=== PATIENT | female | born 1960 | race Caucasian/White ===

== ENCOUNTER 2020-02-05 18:25 | Inpatient (IN) | payer OTHER, SELFPAY ==
--- NOTE | 2020-02-05 18:29 | ED_ITS ---
HPI - SOB/Dyspnea General Chief Complaint: Dyspnea Stated Complaint: DIFF BREATHING Time Seen by Provider: 02/05/20 20:01 Source: patient and EMS Mode of arrival: EMS Limitations: no limitations History of Present Illness HPI Narrative: 60-year-old female with COPD O2 dependent, anxiety, depression, emphysema, hypertension presents via EMS for shortness of breath and hypoxia. Patient's nurse practitioner called EMS. Patient normally on 2 L of O2 however requires 4 to keep O2 sats above 90%. Patient is speaking in short sentences, using accessory muscles and desats on minimal exertion. She has been sick for 2 weeks and feels like she cannot catch her breath. MD elicited complaint: shortness of breath, cough and anxiety Pertinent past history: COPD Onset (ago): week(s) (2) Context: recent illness Timing: constant Severity: moderate Exacerbating factors: exertion, movement, coughing, talking and deep breaths Relieving factors: nothing Known history of: COPD, asthma and recurrent pneumonia Associated symptoms: cough and wheezing Treatment prior to arrival: oxygen Related Data Home oxygen amount: 2 liters Home Medications Medication Instructions Recorded Confirmed albuterol sulfate 2 puff INHALATION QID PRN 02/05/20 02/05/20 albuterol sulfate [Ventolin HFA] 2 puff PO QID PRN 02/05/20 02/05/20 amitriptyline 1 tab PO BEDTIME 02/05/20 02/05/20 anastrozole 1 tab PO DAILY 02/05/20 02/05/20 calcium citrate-vitamin D3 1 tab PO BID 02/05/20 02/05/20 fluticasone propion-salmeterol 1 puff PO BID 02/05/20 02/05/20 [Wixela Inhub] lisinopril 1 tab PO DAILY 02/05/20 02/05/20 montelukast 1 tab PO BEDTIME 02/05/20 02/05/20 omeprazole 1 cap PO BID 02/05/20 02/05/20 sertraline 1.5 tab PO DAILY 02/05/20 02/05/20 Allergies Allergy/AdvReac Type Severity Reaction Status Date / Time Sulfa (Sulfonamide Allergy Mild RASH Verified 02/05/20 18:39 Antibiotics) codeine [Codeine] AdvReac Mild NEAR Verified 02/05/20 18:39 SYNCOPE epoprostenol [From Flolan] AdvReac Mild NAUSEA & Verified 02/05/20 18:39 VOMITING Codeine Sulfate Allergy Unknown fainted Uncoded 02/05/20 18:39 Review of Systems Review of Systems: Constitutional: No Fever, No Chills ENT/Mouth: No Hoarseness, No sore throat, No Rhinorrhea Eyes: No Redness, No Discharge, No Vision Changes Cardiovascular: No Chest Pain, positive SOB, positive Dyspnea on Exertion, No Edema Respiratory: positive Cough, No Sputum, positive Wheezing, Gastrointestinal: No Nausea, No Vomiting, No Diarrhea, No abdominal Pain Genitourinary: No Dysuria, No Hematuria Musculoskeletal: No joint pain, No Myalgias Skin: No rash Neuro: No Weakness, No Numbness, No Headache Psych: No anxiety, depression Heme/Lymph: No Bruising, No Bleeding Endocrine: No Polyuria, No Polydipsia PMFSH Past Medical History Attestation statement: The following information was validated with the patient. Source: old records reviewed Medical History Breast CA Hypertension Surgical History H/O lumpectomy Social History Social History Smoking Status: Former smoker Use of substances other than those prescribed or required for medical reasons: No Advance Directives: No Physical Exam Vital Signs: Vital Signs: Last Vital Signs Temp 99.1 F 02/05/20 21:56 Pulse 81 02/05/20 22:53 Resp 18 02/05/20 22:53 BP 126/69 02/05/20 22:53 Pulse Ox 95 02/05/20 21:12 Body Mass Index 36.6 Appearance: Alert. Oriented X3. Moderate distress. Tachypneic, tachycardic Eyes: Pupils equal, round and reactive to light. ENT: Pharynx normal. Neck: Normal inspection. Neck supple. CVS: Tachycardic heart rate and rhythm. Pulses normal. Respiratory: Moderate respiratory distress. Breath sounds coarse with bilateral expiratory and inspiratory wheezing. Requires 4 L of O2 to keep O2 sat above 90. Abdomen: Soft and nontender. Skin: Skin warm and dry. Normal skin color. Normal skin turgor. Extremities: No lower extremity edema. Neuro: No motor deficit. No sensory deficit. Course Course Course Narrative: 60-year-old female presents via EMS by her nurse practitioner for shortness of breath, hypoxia, and suspected COPD exacerbation. Patient is tachypneic, using accessory muscles, with respiratory rate of 26. O2 sat dropped down to 87% on 2 L, once patient's O2 was bumped up to 4 L respiratory rate decreased O2 sat improved. X-ray shows right lobe infiltrate. Lung sounds are coarse throughout, will order CT scan. Will give ceftriaxone for COPD exacerbation and suspected right lower lobe pneumonia. At 7:47 p.m. COVID positive, fluid resuscitation will be continued gently as this is a viral infection. Discussion with Dr. Fuller regarding admission. Patient will be admitted for COVID-19 pneumonia, hypoxia. Consultations Consultation #1: Alina Time: 19:50 MDM - SOB/Dyspnea Differential Diagnosis Differential diagnosis: Likely acute exacerbation of chronic obstructive airways disease, congestive heart failure, pneumonia, asthma with exacerbation, pleural effusion and anemia Medical Records Attestation: I reviewed the patient's medical records. Lab Data Attestation: I reviewed the patient's lab results. Result diagrams: 02/05/20 18:52 02/05/20 18:52 Labs: Lab Results 02/05/20 02/05/20 02/05/20 Range/Units 18:52 18:52 18:52 WBC 3.2 L (4.8-10.8) X10*3/uL RBC 4.96 (4.20-5.50) X10*6/uL Hgb 15.2 (12.0-16.0) g/dl Hct 45.4 (37-47) % MCV 91.5 (80-98) fL MCH 30.6 (27.0-33.0) pg MCHC 33.5 (31.0-35.0) g/dl RDW 12.2 (11.0-16.0) % Plt Count 137 L (160-400) X10*3/uL MPV 10.1 (9.4-12.3) fL Immature Gran % (Auto) 0.3 (0.0-0.4) % Neut % (Auto) 65.1 (45-73) % Lymph % (Auto) 23.8 (20-40) % Christian % (Auto) 10.5 (2-11) % Eos % (Auto) 0.3 (0-4) % Baso % (Auto) 0.0 (0-2) % Lymph # (Auto) 0.8 L (1.2-4.9) X10*3/uL Christian # (Auto) 0.3 (0.1-1.2) X10*3/uL Eos # (Auto) 0.0 (0.0-0.4) X10*3/uL Baso # (Auto) 0.0 (0.0-0.2) X10*3/uL Abs Immat Gran (auto) 0.01 (0.00-0.03) X10*3/uL Absolute Neuts (auto) 2.1 (2.0-8.3) X10*3/uL Absolute Nucleated RBC 0.000 (0.0-0.012) X10*3/uL Nucleated RBC % (auto) 0.0 (0.0-0.2) /100WBC PT 12.5 (10.8-13.0) SEC INR 1.1 (0.9-1.1) APTT 34.1 (24.1-38.0) SEC Sodium 138 (135-145) mmol/L Potassium 3.4 (3.3-5.1) mmol/l Chloride 97 (96-108) mmol/L Carbon Dioxide 32 H (22-29) mmol/L Anion Gap 12 (12-20) BUN 8 L (9-16) mg/dL Creatinine 0.58 (0.5-1.4) mg/dL Estim Creat Clear Calc 108.0 Estimated GFR > 60 Random Glucose 102 (60-115) mg/dL Lactic Acid (0.5-2.0) mmol/L Calcium 8.2 L (8.4-10.2) mg/dL Total Bilirubin 0.8 (0.0-1.0) mg/dL Direct Bilirubin 0.5 (0.0-0.5) mg/dL AST 32 H (5-31) U/L ALT 18 (0-31) U/L Alkaline Phosphatase 56 (39-117) U/L Troponin I High Sens (<3.5-17.0) ng/L B-Natriuretic Peptide (<100) pg/mL Total Protein 6.1 L (6.5-8.0) g/dL Albumin 3.6 (3.5-5.0) g/dL Lipase 27 (8-78) U/L Coronavirus (PCR) (Negative) Influenza Type A (PCR) (Negative) Influenza Type B (PCR) (Negative) RSV RNA Qual (PCR) (Negative) 02/05/20 02/05/20 02/05/20 Range/Units 18:52 18:52 18:52 WBC (4.8-10.8) X10*3/uL RBC (4.20-5.50) X10*6/uL Hgb (12.0-16.0) g/dl Hct (37-47) % MCV (80-98) fL MCH (27.0-33.0) pg MCHC (31.0-35.0) g/dl RDW (11.0-16.0) % Plt Count (160-400) X10*3/uL MPV (9.4-12.3) fL Immature Gran % (Auto) (0.0-0.4) % Neut % (Auto) (45-73) % Lymph % (Auto) (20-40) % Christian % (Auto) (2-11) % Eos % (Auto) (0-4) % Baso % (Auto) (0-2) % Lymph # (Auto) (1.2-4.9) X10*3/uL Christian # (Auto) (0.1-1.2) X10*3/uL Eos # (Auto) (0.0-0.4) X10*3/uL Baso # (Auto) (0.0-0.2) X10*3/uL Abs Immat Gran (auto) (0.00-0.03) X10*3/uL Absolute Neuts (auto) (2.0-8.3) X10*3/uL Absolute Nucleated RBC (0.0-0.012) X10*3/uL Nucleated RBC % (auto) (0.0-0.2) /100WBC PT (10.8-13.0) SEC INR (0.9-1.1) APTT (24.1-38.0) SEC Sodium (135-145) mmol/L Potassium (3.3-5.1) mmol/l Chloride (96-108) mmol/L Carbon Dioxide (22-29) mmol/L Anion Gap (12-20) BUN (9-16) mg/dL Creatinine (0.5-1.4) mg/dL Estim Creat Clear Calc Estimated GFR Random Glucose (60-115) mg/dL Lactic Acid 0.9 (0.5-2.0) mmol/L Calcium (8.4-10.2) mg/dL Total Bilirubin (0.0-1.0) mg/dL Direct Bilirubin (0.0-0.5) mg/dL AST (5-31) U/L ALT (0-31) U/L Alkaline Phosphatase (39-117) U/L Troponin I High Sens 10.4 (<3.5-17.0) ng/L B-Natriuretic Peptide 17 (<100) pg/mL Total Protein (6.5-8.0) g/dL Albumin (3.5-5.0) g/dL Lipase (8-78) U/L Coronavirus (PCR) POSITIVE A (Negative) Influenza Type A (PCR) NEGATIVE (Negative) Influenza Type B (PCR) NEGATIVE (Negative) RSV RNA Qual (PCR) NEGATIVE (Negative) Imaging Data Chest x-ray: Attestation: I personally reviewed and interpreted this imaging study as follows: Radiologist's impression: EXAMINATION: XR CHEST CLINICAL INFORMATION: Shortness of breath COMPARISON: 03/12/2018 TECHNIQUE: Frontal view of the chest was obtained. FINDINGS: Emphysema. Hazy opacity at the right lung base partially obscures the diaphragm. Mild left lower lobe subsegmental atelectasis. Lungs otherwise clear. Heart size within normal limits for portable technique. No acute or suspicious osseous abnormalities. XR/XR chest 1V IMPRESSION: Emphysema. Right lower lobe hazy opacity partially obscuring the right lateral diaphragm could represent atelectasis or infiltrate. CT scan - chest: Attestation: I personally reviewed and interpreted this imaging study as follows: Radiologist's impression: EXAMINATION: CT CHEST WITHOUT CONTRAST CLINICAL INFORMATION: Abnormal chest x-ray. COMPARISON: X-ray earlier today. CT chest 06/17/2013. TECHNIQUE: Multidetector volumetric CT imaging of the chest was done. Axial MIP volume rendering provided. Sagittal and coronal reformatted images were obtained. This CT examination was performed using dose optimization techniques as appropriate, variously including the following: *Automated exposure control *Adjustment of mA and/or kV according to patient size (this includes techniques or standardized protocols for targeted exams where dose is matched to indication/reason for exam; i.e. extremities or head) *Use of iterative reconstruction technique DLP: 366 mGy-cm FINDINGS: LUNGS: Respiratory motion artifact, limiting evaluation. Emphysematous changes present, more prominent in the lung apices. There is a 1.2 x 1 cm spiculated nodule in the right upper lobe, image 72 series 5, new from previous. The prior study in 2013 demonstrated a spiculated nodule in the right lower lobe. This region is obscured by the respiratory motion artifact, and this is not well evaluated in the current study. There is a diffuse interstitial prominence in the right lower lobe and to a lesser degree in the right middle lobe. This is new as compared to previous. There is mild interstitial prominence in the left lower lobe, as well. There is airspace opacity in the subpleural region of the right lower lobe, as well as patchy airspace opacities in the subpleural right middle lobe, as well. Patchy airspace opacity in the subpleural left lower lobe. These findings are nonspecific. Differential consideration include infectious, inflammatory etiologies. Asymmetric pulmonary edema can potentially have this appearance. MEDIASTINUM: No mediastinal or hilar lymphadenopathy. Mediastinal lymph node lateral to the AP window measures 6 mm in short axis, previously measuring 4 mm. Normal caliber of the aorta. Normal heart size. No pericardial effusion. Coronary artery calcification. PLEURA: Small right pleural effusion. AXILLA: No lymphadenopathy. UPPER ABDOMEN: Unremarkable. OSSEOUS STRUCTURES: Mild anterior wedging of T11, T12 vertebral bodies, similar to previous. Multilevel degenerative changes in the spine. Dysmorphic curvature of the sternum, appears similar to previous. CT/CT chest wo con IMPRESSION: 1. There is a spiculated, nodular opacity in the right upper lobe measuring 1.2 x 1 cm. This is new as compared to the prior study. Differential consideration include infectious, inflammatory, neoplastic etiologies. This can be further worked up at this stage, such as with PET/CT. Alternately, short-term follow up CT is recommended for reassessment. 2. Emphysema. 3. Diffuse interstitial prominence in the right middle lobe and lower lobe, and to a lesser degree in the left lung. These findings are new as compared to previous. Multifocal airspace opacities in the right mid to lower lung, detailed above. Differential considerations for these findings include infectious, inflammatory etiologies. Asymmetric pulmonary edema can potentially have this appearance. Clinically manage. Short-term follow up CT is recommended. 4. Small right pleural effusion. 5. The previously noted right lower lobe spiculated opacity is not well seen on today's study due to respiratory motion artifact. Attention on follow up imaging. ECG Data Attestation: I personally reviewed and interpreted this ECG as follows: ECG interpretation date: 02/05/20 ECG interpretation time: 18:38 Interpretation: Vent. Rate : 093 BPM Atrial Rate : 093 BPM P-R Int : 144 ms QRS Dur : 078 ms QT Int : 378 ms P-R-T Axes : 079 -51 028 degrees QTc Int : 469 ms Normal sinus rhythm Possible Left atrial enlargement Left anterior fascicular block T wave abnormality, consider anterior ischemia Abnormal ECG When compared with ECG of 12-MAR-2018 13:09, No significant change was found Scores Heart Score History: -1- moderately suspicious ECG: -1- non specific repolarization disturbance Age: -1- >45 - <65 Risk factory: -1- 1 or 2 risk factors Troponin: -0- < or = normal limit Score: 4 Risk: 16.6% Critical Care Time Critical Care Time Critical Care Time: Yes Total Critical Care Time: 60 Attestation: I have personally provided critical care time exclusive of time spent on separately billable procedures. Time includes review of laboratory data, radiology results, discussion with consultants, and monitoring for potential decompensation. Interventions were performed as documented. Discharge Plan Discharge Clinical Impression: COVID-19, Hypoxia Patient Disposition: Admitted As Inpatient Interventions: Admission Worksheet (ED) Last Done: 02/05/20 23:09 Discharge Date/Time: 02/05/20 23:49
--- NOTE | 2020-02-05 18:34 | XR_ITS ---
EXAMINATION: XR CHEST CLINICAL INFORMATION: Shortness of breath COMPARISON: 03/12/2018 TECHNIQUE: Frontal view of the chest was obtained. FINDINGS: Emphysema. Hazy opacity at the right lung base partially obscures the diaphragm. Mild left lower lobe subsegmental atelectasis. Lungs otherwise clear. Heart size within normal limits for portable technique. No acute or suspicious osseous abnormalities. XR/XR chest 1V IMPRESSION: Emphysema. Right lower lobe hazy opacity partially obscuring the right lateral diaphragm could represent atelectasis or infiltrate.
--- NOTE | 2020-02-05 18:35 | ECG_ITS ---
Test Reason : SHORTNESS OLF BREATH Blood Pressure : / mmHG Vent. Rate : 093 BPM Atrial Rate : 093 BPM P-R Int : 144 ms QRS Dur : 078 ms QT Int : 378 ms P-R-T Axes : 079 -51 028 degrees QTc Int : 469 ms Normal sinus rhythm Possible Left atrial enlargement Left anterior fascicular block T wave abnormality, consider anterior ischemia Abnormal ECG When compared with ECG of 12-MAR-2018 13:09, No significant change was found Referred By: Angelica Fagan Electronically Signed By:NIR BANDA MD
[2020-02-05 18:39] VITALS: BP 136/85; PULSE 94; RESP 16; TEMP 36.5; O2SAT 96; BMI 36.6
[2020-02-05] MEDS: dexAMETHasone sod phosphate 4 MG/ML VIAL 6 MG IVPUSH (19:03)
[2020-02-05] MEDS: cefTRIAXone sodium 1 GM in 0.9 % Sodium Chloride 50 ML IV (19:03)
[2020-02-05 19:07] LABS: Eosinophils Percent Auto 0.3 % (0-4); Hematocrit 45.4 % (37-47); Hemoglobin 15.2 g/dl (12.0-16.0); Imm Gran Abs Auto 0.01 X10*3/uL (0.00-0.03); Imm Gran Pct Auto 0.3 % (0.0-0.4); Lymphocytes Absolute Auto 0.8 X10*3/uL (1.2-4.9); Lymphocytes Percent Auto 23.8 % (20-40); MANUAL DIFF FLAG NO; Mean Corpuscular HGB Conc 33.5 g/dl (31.0-35.0); Mean Corpuscular Hemoglobin 30.6 pg (27.0-33.0); Mean Corpuscular Volume 91.5 fL (80-98); Mean Platelet Volume 10.1 fL (9.4-12.3); Monocytes Absolute Auto 0.3 X10*3/uL (0.1-1.2); Monocytes Percent Auto 10.5 % (2-11); Neutrophils Absolute Auto 2.1 X10*3/uL (2.0-8.3); Neutrophils Percent Auto 65.1 % (45-73); Platelet Count 137 X10*3/uL (160-400); Red Blood Count 4.96 X10*6/uL (4.20-5.50); Red Cell Distribution Width 12.2 % (11.0-16.0); White Blood Count 3.2 X10*3/uL (4.8-10.8)
[2020-02-05 19:12] VITALS: BP 137/80; PULSE 91; RESP 17; TEMP 37.3; O2SAT 96
[2020-02-05 19:14] LABS: INTERNATIONAL NORM RATIO 1.1 (0.9-1.1); Prothrombin Time 12.5 SEC (10.8-13.0)
--- NOTE | 2020-02-05 19:15 | PC.NURSE ---
ARRIVES FROM HOME AFTER 1 WK OF SOB AD FEVERS. USES 2L O2 AT HOME, HX COPD. CURRENT INCREASED O2 DEMAND, DIAPHRAGMATIC BREATHING, DRY COUGH, WHEEZING HEARD THROUGHOUT, FATIGUED. DUONEB WITH EMS WITH SOME RELIEF. CURRENT SPO2 WNL ON 3L. DENIES ANY RECENT COVID EXPOSURE.
[2020-02-05 19:16] LABS: Partial Thromboplastin Time 34.1 SEC (24.1-38.0)
[2020-02-05 19:19] LABS: Lactic Acid 0.9 mmol/L (0.5-2.0)
[2020-02-05 19:25] LABS: Alanine Aminotransferase 18 U/L (0-31); Albumin Level 3.6 g/dL (3.5-5.0); Alkaline Phosphatase 56 U/L (39-117); Anion Gap 12 (12-20); Aspartate Amino Transferase 32 U/L (5-31); Bilirubin Direct 0.5 mg/dL (0.0-0.5); Bilirubin Total 0.8 mg/dL (0.0-1.0); Blood Urea Nitrogen 8 mg/dL (9-16); Calcium 8.2 mg/dL (8.4-10.2); Carbon Dioxide 32 mmol/L (22-29); Chloride 97 mmol/L (96-108); Estimated Glomerular Filt Rate > 60; Glucose Random 102 mg/dL (60-115); Lipase 27 U/L (8-78); Potassium 3.4 mmol/l (3.3-5.1); Sodium 138 mmol/L (135-145); Total Protein 6.1 g/dL (6.5-8.0)
[2020-02-05 19:28] LABS: Troponin-I High Sensitivity 10.4 ng/L (<3.5-17.0)
--- NOTE | 2020-02-05 19:31 | CT_ITS ---
EXAMINATION: CT CHEST WITHOUT CONTRAST CLINICAL INFORMATION: Abnormal chest x-ray. COMPARISON: X-ray earlier today. CT chest 06/17/2013. TECHNIQUE: Multidetector volumetric CT imaging of the chest was done. Axial MIP volume rendering provided. Sagittal and coronal reformatted images were obtained. This CT examination was performed using dose optimization techniques as appropriate, variously including the following: *Automated exposure control *Adjustment of mA and/or kV according to patient size (this includes techniques or standardized protocols for targeted exams where dose is matched to indication/reason for exam; i.e. extremities or head) *Use of iterative reconstruction technique DLP: 366 mGy-cm FINDINGS: LUNGS: Respiratory motion artifact, limiting evaluation. Emphysematous changes present, more prominent in the lung apices. There is a 1.2 x 1 cm spiculated nodule in the right upper lobe, image 72 series 5, new from previous. The prior study in 2013 demonstrated a spiculated nodule in the right lower lobe. This region is obscured by the respiratory motion artifact, and this is not well evaluated in the current study. There is a diffuse interstitial prominence in the right lower lobe and to a lesser degree in the right middle lobe. This is new as compared to previous. There is mild interstitial prominence in the left lower lobe, as well. There is airspace opacity in the subpleural region of the right lower lobe, as well as patchy airspace opacities in the subpleural right middle lobe, as well. Patchy airspace opacity in the subpleural left lower lobe. These findings are nonspecific. Differential consideration include infectious, inflammatory etiologies. Asymmetric pulmonary edema can potentially have this appearance. MEDIASTINUM: No mediastinal or hilar lymphadenopathy. Mediastinal lymph node lateral to the AP window measures 6 mm in short axis, previously measuring 4 mm. Normal caliber of the aorta. Normal heart size. No pericardial effusion. Coronary artery calcification. PLEURA: Small right pleural effusion. AXILLA: No lymphadenopathy. UPPER ABDOMEN: Unremarkable. OSSEOUS STRUCTURES: Mild anterior wedging of T11, T12 vertebral bodies, similar to previous. Multilevel degenerative changes in the spine. Dysmorphic curvature of the sternum, appears similar to previous. CT/CT chest wo con IMPRESSION: 1. There is a spiculated, nodular opacity in the right upper lobe measuring 1.2 x 1 cm. This is new as compared to the prior study. Differential consideration include infectious, inflammatory, neoplastic etiologies. This can be further worked up at this stage, such as with PET/CT. Alternately, short-term follow up CT is recommended for reassessment. 2. Emphysema. 3. Diffuse interstitial prominence in the right middle lobe and lower lobe, and to a lesser degree in the left lung. These findings are new as compared to previous. Multifocal airspace opacities in the right mid to lower lung, detailed above. Differential considerations for these findings include infectious, inflammatory etiologies. Asymmetric pulmonary edema can potentially have this appearance. Clinically manage. Short-term follow up CT is recommended. 4. Small right pleural effusion. 5. The previously noted right lower lobe spiculated opacity is not well seen on today's study due to respiratory motion artifact. Attention on follow up imaging.
[2020-02-05 19:43] LABS: Influenza A PCR NEGATIVE (Negative); Influenza B PCR NEGATIVE (Negative); Resp Syncy Virus RNA Qual PCR NEGATIVE (Negative)
[2020-02-05 19:47] LABS: SARS COV2 PCR INHOUSE POSITIVE (Negative)
[2020-02-05 21:12] VITALS: BP 125/64; PULSE 88; RESP 15; O2SAT 95
[2020-02-05 21:48] LABS: B Type Natriuretic Peptide 17 pg/mL (<100)
[2020-02-05 21:56] VITALS: BP 112/62; PULSE 83; RESP 24; TEMP 37.3
[2020-02-05 22:53] VITALS: BP 126/69; PULSE 81; RESP 18
[2020-02-06] VITALS (9 sets, daily range): BP systolic 110–141; BP diastolic 59–86; PULSE 66–86; RESP 18–20; TEMP 36.1–36.9; O2SAT 90–94; BMI 39.8; BMI 39.6
[2020-02-06] MEDS: Enoxaparin Sodium 40 MG/0.4 ML SYRINGE SUBCUT (00:11)
[2020-02-06] MEDS: 0.9 % Sodium Chloride Flush 3 ML SYRINGE IVFLUSH ×4 (00:12→21:51)
--- NOTE | 2020-02-06 05:50 | PM.IMHP ---
History of Present Illness Date of Service: 02/05/20 Chief Complaint: Shortness of breath This is a 6-year-old female with past medical history of COPD, anxiety depression, hypertension who presents to the hospital with shortness of breath and hypoxia. Patient's visiting nurse called EMS because she was hypoxic. Patient is at baseline 2 L of oxygen but was found to be hypoxic in the 80s with presentation of EMS. She is currently on 4 L of oxygen satting 92%. Patient reports a cough, sputum production, progressively worsening shortness of breath for the past few days, she also has loss of appetite, no nausea or vomiting, no abdominal pain, no diarrhea constipation. No urinary symptoms and no lower extremity edema. To the ED medically stable with no significant abnormal vitals Labs are significant for WBC count of 3.2, hemoglobin of 15.2 hematocrit of 45.4, CMP significant for sodium of 138, potassium 3.4, AST of 32, COVID-19 positive BNP of 17. Troponin of [address] shows spiculated nodular opacity in the right upper lobe measuring 1.1 x 1 cm. This is new compared to previous study, differential consideration include infectious, inflammatory, neoplastic etiology and a CT follow-up is recommended. Patient also has emphysema on CT, and diffuse interstitial prominence in the right middle lobe and lower lobe and to a lesser degree in the left lung. These findings are new and has multifocal his peers opacity in the right mid to lower lobe concerning for asymmetric pulmonary edema as well as infectious etiology. Patient also has right pleural effusion. Past medical history: History of hypertension, breast cancer, COPD on 2 L of oxygen, depression Past surgical history: Lumpectomy Family history: Denies Social history: Comes from home, at this time denies tobacco alcohol or illicit drugs Review of Systems Review of Systems: Yes all other systems are reviewed and are negative [facility] Medical History Breast CA Hypertension Surgical History H/O lumpectomy Social History Household Members: None Housing: House Smoking Status: Former smoker Smoked in Last 30 Days: No Use of substances other than those prescribed or required for medical reasons: No Have you been hit, kicked, punched, or otherwise hurt by someone within the past year? If so, by whom?: No Do you feel safe in your current relationship?: No Current Relationship Is there a partner from a previous relationship who is making you feel unsafe now?: No Are you made to feel afraid or neglected: No Advance Directives: No Do you have thoughts of harming others: None Do you have a plan to hurt others: No Plan Recently lost weight without trying: No Meds Allergies Allergy/AdvReac Type Severity Reaction Status Date / Time Sulfa (Sulfonamide Allergy Mild RASH Verified 02/05/20 18:39 Antibiotics) codeine [Codeine] AdvReac Mild NEAR Verified 02/05/20 18:39 SYNCOPE epoprostenol [From Flolan] AdvReac Mild NAUSEA & Verified 02/05/20 18:39 VOMITING Codeine Sulfate Allergy Unknown fainted Uncoded 02/05/20 18:39 Home Medications Medication Instructions Recorded Confirmed Type albuterol sulfate 2 puff INHALATION QID PRN 02/05/20 02/05/20 History albuterol sulfate [Ventolin HFA] 2 puff PO QID PRN 02/05/20 02/05/20 History amitriptyline 1 tab PO BEDTIME 02/05/20 02/05/20 History anastrozole 1 tab PO DAILY 02/05/20 02/05/20 History calcium citrate-vitamin D3 1 tab PO BID 02/05/20 02/05/20 History fluticasone propion-salmeterol 1 puff PO BID 02/05/20 02/05/20 History [Wixela Inhub] lisinopril 1 tab PO DAILY 02/05/20 02/05/20 History montelukast 1 tab PO BEDTIME 02/05/20 02/05/20 History omeprazole 1 cap PO BID 02/05/20 02/05/20 History sertraline 1.5 tab PO DAILY 02/05/20 02/05/20 History Physical Exam Vital Signs and Narrative: Vital Signs: Last Vital Signs Temp 98.5 F 02/06/20 03:43 Pulse 66 02/06/20 03:43 Resp 19 02/06/20 03:43 BP 139/74 02/06/20 03:43 Pulse Ox 92 02/06/20 03:43 Body Mass Index 39.8 Const: General: cooperative and no acute distress Orientation/consciousness: patient oriented x3 Eyes: General: appearance normal, both eyes and all related structures Resp: Other: Tachypneic Effort & Inspection: able to speak in complete sentences Auscultation: crackles Cardio: Rate: regular rate Rhythm: regular rhythm GI: Palpation (GI): Soft to palpation Auscultation: normal bowel sounds Skin: General skin exam: no rashes or lesions noted Neuro: General: patient oriented x3 Cognition (Neuro): normal cognition Extrem: General: Yes normal to inspection and Yes no pedal edema Results Labs CBC and Chem 7: 02/05/20 18:52 02/05/20 18:52 Labs: Laboratory Results - last 24 hr 02/05/20 02/05/20 02/05/20 18:52 18:52 18:52 MCV 91.5 MCH 30.6 MCHC 33.5 RDW 12.2 Plt Count 137 L MPV 10.1 Immature Gran % (Auto) 0.3 Neut % (Auto) 65.1 Lymph % (Auto) 23.8 [place] % (Auto) 10.5 Eos % (Auto) 0.3 Baso % (Auto) 0.0 Lymph # (Auto) 0.8 L [place] # (Auto) 0.3 Eos # (Auto) 0.0 Baso # (Auto) 0.0 Abs Immat Gran (auto) 0.01 Absolute Neuts (auto) 2.1 Absolute Nucleated RBC 0.000 Nucleated RBC % (auto) 0.0 PT 12.5 INR 1.1 APTT 34.1 Anion Gap 12 Estim Creat Clear Calc 108.0 Estimated GFR > 60 Random Glucose 102 Lactic Acid Calcium 8.2 L Total Bilirubin 0.8 Direct Bilirubin 0.5 AST 32 H ALT 18 Alkaline Phosphatase 56 Troponin I High Sens B-Natriuretic Peptide Total Protein 6.1 L Albumin 3.6 Lipase 27 Coronavirus (PCR) Influenza Type A (PCR) Influenza Type B (PCR) RSV RNA Qual (PCR) 02/05/20 02/05/20 02/05/20 18:52 18:52 18:52 MCV MCH MCHC RDW Plt Count MPV Immature Gran % (Auto) Neut % (Auto) Lymph % (Auto) [place] % (Auto) Eos % (Auto) Baso % (Auto) Lymph # (Auto) [place] # (Auto) Eos # (Auto) Baso # (Auto) Abs Immat Gran (auto) Absolute Neuts (auto) Absolute Nucleated RBC Nucleated RBC % (auto) PT INR APTT Anion Gap Estim Creat Clear Calc Estimated GFR Random Glucose Lactic Acid 0.9 Calcium Total Bilirubin Direct Bilirubin AST ALT Alkaline Phosphatase Troponin I High Sens 10.4 B-Natriuretic Peptide 17 Total Protein Albumin Lipase Coronavirus (PCR) POSITIVE A Influenza Type A (PCR) NEGATIVE Influenza Type B (PCR) NEGATIVE RSV RNA Qual (PCR) NEGATIVE Imaging Radiologist's Impressions: Impressions Chest X-Ray 02/05/20 18:34 IMPRESSION: Emphysema. Right lower lobe hazy opacity partially obscuring the right lateral diaphragm could represent atelectasis or infiltrate. Chest CT 02/05/20 19:31 IMPRESSION: 1. There is a spiculated, nodular opacity in the right upper lobe measuring 1.2 x 1 cm. This is new as compared to the prior study. Differential consideration include infectious, inflammatory, neoplastic etiologies. This can be further worked up at this stage, such as with PET/CT. Alternately, short-term follow up CT is recommended for reassessment. 2. Emphysema. 3. Diffuse interstitial prominence in the right middle lobe and lower lobe, and to a lesser degree in the left lung. These findings are new as compared to previous. Multifocal airspace opacities in the right mid to lower lung, detailed above. Differential considerations for these findings include infectious, inflammatory etiologies. Asymmetric pulmonary edema can potentially have this appearance. Clinically manage. Short-term follow up CT is recommended. 4. Small right pleural effusion. 5. The previously noted right lower lobe spiculated opacity is not well seen on today's study due to respiratory motion artifact. Attention on follow up imaging. Assessment and Plan (1) COVID-19: Status: Acute (2) Respiratory failure with hypoxia: Qualifiers: Chronicity: acute on chronic Qualified Code(s): J96.21 - Acute and chronic respiratory failure with hypoxia Status: Acute (3) Hypertension: Qualifiers: Hypertension type: essential hypertension Qualified Code(s): I10 - Essential (primary) hypertension Status: Acute (4) Breast CA: Qualifiers: Breast location: unspecified site of breast Estrogen receptor status: unspecified Patient sex: female Laterality: unspecified laterality Qualified Code(s): C50.919 - Malignant neoplasm of unspecified site of unspecified female breast Status: Acute (5) Hypoxia: Status: Acute (6) Pneumonia: Status: Acute Medical history as above who presents to the hospital with shortness of breath, cough and sputum production found to have COVID-19 positive # acute on chronic hypoxic respiratory failure - secondary to COVID-19 pneumonia versus bacterial coinfection - COVID-19 positive - has underlying COPD on baseline 2 L of oxygen, currently satting 92% on 4 L - chest CT as above Plan: - continue O2 as tolerated and required - IV antibiotics given the infiltrates - prednisone 40 daily per recommendations - monitor respiratory status # pneumonia - bacterial versus viral versus a combination of both - COVID-19 positive Plan: - prednisone - follow cultures, egionella and strep urine antigens # abnormal CT - given history of breast cancer, the finding of CT are concerning patient will need follow-up CT once acute infection resolves # history of breast cancer - continue anastrozole # hypertension - stable - continue lisinopril DVT prophylaxis: Lovenox
[2020-02-06 06:04] LABS: Hematocrit 43.6 % (37-47); Hemoglobin 14.5 g/dl (12.0-16.0); Imm Gran Abs Auto 0.02 X10*3/uL (0.00-0.03); Lymphocytes Absolute Auto 0.4 X10*3/uL (1.2-4.9); Lymphocytes Percent Auto 19.1 % (20-40); MANUAL DIFF FLAG SCAN; Mean Corpuscular HGB Conc 33.3 g/dl (31.0-35.0); Mean Corpuscular Hemoglobin 30.6 pg (27.0-33.0); Mean Platelet Volume 10.3 fL (9.4-12.3); Monocytes Absolute Auto 0.2 X10*3/uL (0.1-1.2); Monocytes Percent Auto 8.8 % (2-11); Neutrophils Absolute Auto 1.5 X10*3/uL (2.0-8.3); Neutrophils Percent Auto 71.1 % (45-73); Platelet Count 135 X10*3/uL (160-400); Red Blood Count 4.74 X10*6/uL (4.20-5.50); Red Cell Distribution Width 12.1 % (11.0-16.0); SCAN SMEAR FLAG 1
[2020-02-06] MEDS: cefTRIAXone sodium 1 GM in 0.9 % Sodium Chloride 50 ML IV (06:29)
[2020-02-06 06:31] LABS: Anion Gap 14 (12-20); Blood Urea Nitrogen 12 mg/dL (9-16); Calcium 8.3 mg/dL (8.4-10.2); Carbon Dioxide 31 mmol/L (22-29); Chloride 101 mmol/L (96-108); Creatinine Clr Calc Pharmacy 107.5; Estimated Glomerular Filt Rate > 60; Glucose Random 222 mg/dL (60-115); Potassium 4.1 mmol/l (3.3-5.1); Sodium 142 mmol/L (135-145)
[2020-02-06] MEDS: Azithromycin 500 MG TABLET PO (06:33)
[2020-02-06 06:44] LABS: SLIDE REVIEW VERIFIED
[2020-02-06] MEDS: Omeprazole 20 MG CAPSULE.DR PO ×2 (06:47→17:32)
[2020-02-06] MEDS: Anastrozole 1 MG TABLET PO (08:27)
[2020-02-06] MEDS: predniSONE 20 MG TABLET 40 MG PO (08:27)
[2020-02-06] MEDS: Sertraline HCL 100 MG TABLET PO (08:27)
[2020-02-06] MEDS: Calcium + Vitamin D 250 MG TABLET PO ×2 (08:27→17:32)
[2020-02-06] MEDS: lisinopriL 10 MG TABLET PO (08:28)
[2020-02-06] MEDS: Sertraline HCL 50 MG TABLET PO (08:28)
--- NOTE | 2020-02-06 11:00 | HO.PM.IMPN ---
Subjective Subjective Date of Service: 02/06/20 Interval History: sob Cardiovascular Cardiovascular: Reports no additional cardiovascular complaints Gastrointestinal Gastrointestinal: Reports no additional gastrointestinal complaints Physical Exam Vital Signs: Vital Signs: Last Vital Signs Temp 97.6 F 02/06/20 08:00 Pulse 78 02/06/20 08:28 Resp 20 02/06/20 08:00 BP 110/72 02/06/20 08:28 Pulse Ox 90 L 02/06/20 08:00 Body Mass Index 39.6 General: AO X 3, no acute distress Resp: CTA bilateral CVS: S1,S2,RRR GI: soft, non tender, non distended Neuro: motor grossly intact Psych: appropriate affect Objective Data Current Medications Generic Name Dose Route Start Last Admin Trade Name Freq PRN Reason Stop Dose Admin Acetaminophen 650 mg 02/05/20 23:13 Acetaminophen 325 Mg Tablet PO Q6H PRN Pain, Mild (Pain Scale 1-3) Albuterol Sulfate 2 puff 02/06/20 05:55 Albuterol Sulfate 90 Mcg 8 Gm Inhaler INHALE QID PRN wheezing Amitriptyline HCl 25 mg 02/06/20 21:00 Amitriptyline Hcl 25 Mg Tablet PO BEDTIME JASON Anastrozole 1 mg 02/06/20 09:00 02/06/20 08:27 Anastrozole 1 Mg Tablet PO 1 mg DAILY JASON Administration Azithromycin 500 mg 02/06/20 06:00 02/06/20 06:33 Azithromycin 500 Mg Tablet PO 500 mg Q24H JASON Administration Calcium Carbonate/Cholecalciferol 250 mg 02/06/20 08:21 02/06/20 08:27 Calcium + Vitamin D 250 Mg Tablet PO 250 mg BIDWM JASON Administration Docusate Sodium 100 mg 02/05/20 23:13 Docusate Sodium 100 Mg Capsule PO DAILY PRN Constipation Enoxaparin Sodium 40 mg 02/06/20 00:00 02/06/20 00:11 Enoxaparin Sodium 40 Mg/0.4 Ml Syringe SUBCUT 40 mg Q24H JASON Administration Fluticasone/Vilanterol 1 puff 02/06/20 08:00 Fluticasone/Vilanterol 200/25 Blst.W.Dev INHALE RDAILY JASON Guaifenesin 5 ml 02/06/20 09:23 Guaifenesin 100 Mg/5 Ml Liquid PO Q4H PRN ough Ceftriaxone Sodium 1 gm/ 50 mls @ 100 mls/hr 02/06/20 07:00 02/06/20 08:28 Sodium Chloride IV Infused Q24H JASON Infusion Lisinopril 10 mg 02/06/20 09:00 02/06/20 08:28 Lisinopril 10 Mg Tablet PO 10 mg DAILY JASON Administration Protocol Montelukast Sodium 10 mg 02/06/20 21:00 Montelukast Sodium 10 Mg Tablet PO BEDTIME JASON Omeprazole 20 mg 02/06/20 06:45 02/06/20 06:47 Omeprazole 20 Mg Capsule.Dr PO 20 mg BID@0630,1630 JASON Administration Ondansetron HCl 4 mg 02/05/20 23:13 Ondansetron Hcl 4 Mg/2 Ml Vial IVPUSH Q8H PRN Nausea and Vomiting Pharmacy Consult 1 each 02/05/20 22:38 Consult Rx Perform Med Rec MISCELLANE ONCE PRN Consult order Prednisone 40 mg 02/06/20 09:00 02/06/20 08:27 Prednisone 20 Mg Tablet PO 40 mg DAILY JASON Administration Sertraline HCl 100 mg 02/06/20 09:00 02/06/20 08:27 Sertraline Hcl 100 Mg Tablet PO 100 mg DAILY JASON Administration Sertraline HCl 50 mg 02/06/20 09:00 02/06/20 08:28 Sertraline Hcl 50 Mg Tablet PO 50 mg DAILY JASON Administration Sodium Chloride 3 ml 02/06/20 00:00 02/06/20 08:28 0.9 % Sodium Chloride Flush 3 Ml Syringe IVFLUSH 3 ml QSHIFT JASON Administration Labs CBC & Chem 7: 02/06/20 04:23 02/06/20 04:23 Assessment and Plan (1) COVID-19: Status: Acute (2) Respiratory failure with hypoxia: Status: Acute (3) Hypertension: Status: Acute (4) Breast CA: Status: Acute (5) Hypoxia: Status: Acute (6) Pneumonia: Status: Acute Assessment and Plan: Medical history as above who presents to the hospital with shortness of breath, cough and sputum production found to have COVID-19 positive Acute on chronic hypoxic respiratory failure secondary to COVID and COPD Continue steroids, antibiotics Wean O2 as tolerated Spiculated opacity on CT Outpatient follow-up history of breast cancer continue anastrozole hypertension continue lisinopril DVT prophylaxis: Lovenox
--- NOTE | 2020-02-06 11:08 | MHC.CM.PN ---
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
[2020-02-06] MEDS: Fluticasone/Vilanterol 200/25 BLST.W.DEV 1 PUFF INHALE (11:42)
[2020-02-06] MEDS: guaiFENesin 100 MG/5 ML LIQUID PO (12:13)
--- NOTE | 2020-02-06 12:36 | MHC.PIE ---
P: Non productive cough / forceful, patient c/o pain w/ cough - dyspnea on exertion. I: Dr Vargas made aware - guaifenesin ordered and given @ 12:13. E: Patient recovers from activity. On 2.5 liters nasal cannula. Lungs clear/dim throughout.
[2020-02-06 12:45] LABS: Glucose Urine UA 250 MG/DL (NEG); Leukocyte Esterase Urine NEG (NEG); Nitrite Urine NEG (NEG); PH 6.5 (5.0-8.0); Specific Gravity - Urine 1.025 (1.005-1.025); Urine Blood NEG (NEG); Urine Ketones 15 MG/DL (NEG); Urine Protein TRACE MG/DL (NEG-TRACE)
[2020-02-06 12:49] LABS: Appearance Urine HAZY; Color Urine YELLOW
[2020-02-06] MEDS: Montelukast Sodium 10 MG TABLET PO (21:51)
[2020-02-06] MEDS: Amitriptyline HCl 25 MG TABLET PO (21:51)
[2020-02-07] VITALS (7 sets, daily range): BP systolic 110–136; BP diastolic 70–83; PULSE 61–97; RESP 18–20; TEMP 36.4–36.8; O2SAT 92–96; BMI 39.9
[2020-02-07] MEDS: Enoxaparin Sodium 40 MG/0.4 ML SYRINGE SUBCUT ×2 (00:14→20:19)
[2020-02-07] MEDS: Omeprazole 20 MG CAPSULE.DR PO ×2 (05:32→15:46)
[2020-02-07] MEDS: Azithromycin 500 MG TABLET PO (05:32)
[2020-02-07] MEDS: Fluticasone/Vilanterol 200/25 BLST.W.DEV 1 PUFF INHALE (08:06)
[2020-02-07] MEDS: predniSONE 20 MG TABLET 40 MG PO (08:55)
[2020-02-07] MEDS: Anastrozole 1 MG TABLET PO (08:55)
[2020-02-07] MEDS: cefTRIAXone sodium 1 GM in 0.9 % Sodium Chloride 50 ML IV (08:55)
[2020-02-07] MEDS: Calcium + Vitamin D 250 MG TABLET PO ×2 (08:56→15:46)
[2020-02-07] MEDS: Sertraline HCL 100 MG TABLET PO (08:56)
[2020-02-07] MEDS: Sertraline HCL 50 MG TABLET PO (08:56)
[2020-02-07] MEDS: lisinopriL 10 MG TABLET PO (08:56)
[2020-02-07] MEDS: 0.9 % Sodium Chloride Flush 3 ML SYRINGE IVFLUSH ×3 (08:57→20:20)
--- NOTE | 2020-02-07 10:42 | P.PNIM_ITS ---
Subjective Subjective Date of Service: 02/07/20 Interval History: still feeling unwell Cardiovascular Cardiovascular: Reports no additional cardiovascular complaints Gastrointestinal Gastrointestinal: Reports no additional gastrointestinal complaints Physical Exam Vital Signs: Vital Signs: Last Vital Signs Temp 97.8 F 02/07/20 07:39 Pulse 78 02/07/20 08:56 Resp 20 02/07/20 07:39 BP 110/72 02/07/20 08:56 Pulse Ox 93 02/07/20 07:39 Body Mass Index 39.9 General: AO X 3, no acute distress Resp: CTA bilateral CVS: diminished GI: soft, non tender, non distended Neuro: motor grossly intact Psych: appropriate affect Objective Data Current Medications Generic Name Dose Route Start Last Admin Trade Name Freq PRN Reason Stop Dose Admin Acetaminophen 650 mg 02/05/20 23:13 Acetaminophen 325 Mg Tablet PO Q6H PRN Pain, Mild (Pain Scale 1-3) Albuterol Sulfate 2 puff 02/06/20 05:55 Albuterol Sulfate 90 Mcg 8 Gm Inhaler INHALE QID PRN wheezing Amitriptyline HCl 25 mg 02/06/20 21:00 02/06/20 21:51 Amitriptyline Hcl 25 Mg Tablet PO 25 mg BEDTIME JASON Administration Anastrozole 1 mg 02/06/20 09:00 02/07/20 08:55 Anastrozole 1 Mg Tablet PO 1 mg DAILY JASON Administration Azithromycin 500 mg 02/06/20 06:00 02/07/20 05:32 Azithromycin 500 Mg Tablet PO 500 mg Q24H JASON Administration Calcium Carbonate/Cholecalciferol 250 mg 02/06/20 08:21 02/07/20 08:56 Calcium + Vitamin D 250 Mg Tablet PO 250 mg BIDWM JASON Administration Docusate Sodium 100 mg 02/05/20 23:13 Docusate Sodium 100 Mg Capsule PO DAILY PRN Constipation Enoxaparin Sodium 40 mg 02/06/20 00:00 02/07/20 00:14 Enoxaparin Sodium 40 Mg/0.4 Ml Syringe SUBCUT 40 mg Q24H JASON Administration Fluticasone/Vilanterol 1 puff 02/06/20 08:00 02/07/20 08:06 Fluticasone/Vilanterol 200/25 Blst.W.Dev INHALE 1 puff RDAILY JASON Administration Guaifenesin 5 ml 02/06/20 09:23 02/06/20 12:13 Guaifenesin 100 Mg/5 Ml Liquid PO 5 ml Q4H PRN Administration ough Ceftriaxone Sodium 1 gm/ 50 mls @ 100 mls/hr 02/06/20 07:00 02/07/20 10:19 Sodium Chloride IV Infused Q24H JASON Infusion Lisinopril 10 mg 02/06/20 09:00 02/07/20 08:56 Lisinopril 10 Mg Tablet PO 10 mg DAILY JASON Administration Protocol Montelukast Sodium 10 mg 02/06/20 21:00 02/06/20 21:51 Montelukast Sodium 10 Mg Tablet PO 10 mg BEDTIME JASON Administration Omeprazole 20 mg 02/06/20 06:45 02/07/20 05:32 Omeprazole 20 Mg Capsule.Dr PO 20 mg BID@0630,1630 JASON Administration Ondansetron HCl 4 mg 02/05/20 23:13 Ondansetron Hcl 4 Mg/2 Ml Vial IVPUSH Q8H PRN Nausea and Vomiting Pharmacy Consult 1 each 02/05/20 22:38 Consult Rx Perform Med Rec MISCELLANE ONCE PRN Consult order Prednisone 40 mg 02/06/20 09:00 02/07/20 08:55 Prednisone 20 Mg Tablet PO 40 mg DAILY JASON Administration Sertraline HCl 100 mg 02/06/20 09:00 02/07/20 08:56 Sertraline Hcl 100 Mg Tablet PO 100 mg DAILY JASON Administration Sertraline HCl 50 mg 02/06/20 09:00 02/07/20 08:56 Sertraline Hcl 50 Mg Tablet PO 50 mg DAILY JASON Administration Sodium Chloride 3 ml 02/06/20 00:00 02/07/20 08:57 0.9 % Sodium Chloride Flush 3 Ml Syringe IVFLUSH 3 ml QSHIFT [facility] Administration Labs CBC & Chem 7: 02/06/20 04:23 02/06/20 04:23 Microbiology Microbiology Results: Microbiology 02/05/20 18:54 Blood - Venous Blood Culture - Preliminary No growth after 24 hours. 02/05/20 18:54 Blood - Venous Blood Culture - Preliminary No growth after 24 hours. Assessment and Plan (1) COVID-19: Status: Acute (2) Respiratory failure with hypoxia: Status: Acute (3) Hypertension: Status: Acute (4) Breast CA: Status: Acute (5) Hypoxia: Status: Acute (6) Pneumonia: Status: Acute Assessment and Plan: Medical history as above who presents to the hospital with shortness of breath, cough and sputum production found to have COVID-19 positive Acute on chronic hypoxic respiratory failure secondary to COVID and COPD Continue steroids (prednisone 40mg daily, day 2), ceftriaxone, azithromycin Wean O2 as tolerated still not feeling well enough for discharge Spiculated opacity on CT Outpatient follow-up history of breast cancer continue anastrozole hypertension continue lisinopril DVT prophylaxis: Lovenox
[2020-02-07] MEDS: Amitriptyline HCl 25 MG TABLET PO (20:14)
[2020-02-07] MEDS: Montelukast Sodium 10 MG TABLET PO (20:14)
[2020-02-08] VITALS (7 sets, daily range): BP systolic 115–134; BP diastolic 70–80; PULSE 73–97; RESP 18–22; TEMP 36.6–37.1; O2SAT 90–96; BMI 39.9
[2020-02-08] MEDS: Azithromycin 500 MG TABLET PO (05:18)
[2020-02-08] MEDS: Omeprazole 20 MG CAPSULE.DR PO ×2 (05:19→15:44)
[2020-02-08] MEDS: Fluticasone/Vilanterol 200/25 BLST.W.DEV 1 PUFF INHALE (08:13)
[2020-02-08] MEDS: lisinopriL 10 MG TABLET PO (09:47)
[2020-02-08] MEDS: Sertraline HCL 100 MG TABLET PO (09:47)
[2020-02-08] MEDS: Sertraline HCL 50 MG TABLET PO (09:47)
[2020-02-08] MEDS: Calcium + Vitamin D 250 MG TABLET PO ×2 (09:47→20:32)
[2020-02-08] MEDS: predniSONE 20 MG TABLET 40 MG PO (09:48)
[2020-02-08] MEDS: 0.9 % Sodium Chloride Flush 3 ML SYRINGE IVFLUSH ×2 (09:48→15:45)
[2020-02-08] MEDS: cefTRIAXone sodium 1 GM in 0.9 % Sodium Chloride 50 ML IV (09:48)
[2020-02-08] MEDS: Anastrozole 1 MG TABLET PO (09:48)
--- NOTE | 2020-02-08 13:11 | HO.PM.IMPN ---
Subjective Subjective Date of Service: 02/08/20 Interval History: Being followed for acute on chronic respiratory failure, patient complaining of shortness of breath with exertion, feels weak and not ready for discharge. Review of Systems General no headache, no dizziness no fever chills. CVS no chest pain, no palpitation. Respiratory dry cough,no respiratory distress. Gastrointestinal no nausea, no vomiting, no abdominal pain Physical Exam Vital Signs: Vital Signs: Last Vital Signs Temp 97.9 F 02/08/20 12:00 Pulse 97 02/08/20 12:00 Resp 22 H 02/08/20 12:00 BP 115/77 02/08/20 12:00 Pulse Ox 90 L 02/08/20 12:00 Body Mass Index 39.9 General no acute distress. Neck is supple no JVD. CVS regular rate rhythm, Respiratory diminished breath sounds, no respiratory distress Gastrointestinal abdomen soft, nontender, bowel sounds audible Extremities no clubbing cyanosis or edema. Neuro nonfocal Psych appropriate affect Skin no rash Objective Data Current Medications Generic Name Dose Route Start Last Admin Trade Name Cedricq PRN Reason Stop Dose Admin Acetaminophen 650 mg 02/05/20 23:13 Acetaminophen 325 Mg Tablet PO Q6H PRN Pain, Mild (Pain Scale 1-3) Albuterol Sulfate 2 puff 02/06/20 05:55 Albuterol Sulfate 90 Mcg 8 Gm Inhaler INHALE QID PRN wheezing Amitriptyline HCl 25 mg 02/06/20 21:00 02/07/20 20:14 Amitriptyline Hcl 25 Mg Tablet PO 25 mg BEDTIME JASON Administration Anastrozole 1 mg 02/06/20 09:00 02/08/20 09:48 Anastrozole 1 Mg Tablet PO 1 mg DAILY JASON Administration Azithromycin 500 mg 02/06/20 06:00 02/08/20 05:18 Azithromycin 500 Mg Tablet PO 500 mg Q24H JASON Administration Calcium Carbonate/Cholecalciferol 250 mg 02/06/20 08:21 02/08/20 09:47 Calcium + Vitamin D 250 Mg Tablet PO 250 mg BIDWM JASON Administration Docusate Sodium 100 mg 02/05/20 23:13 Docusate Sodium 100 Mg Capsule PO DAILY PRN Constipation Enoxaparin Sodium 40 mg 02/06/20 00:00 02/07/20 20:19 Enoxaparin Sodium 40 Mg/0.4 Ml Syringe SUBCUT 40 mg Q24H JASON Administration Fluticasone/Vilanterol 1 puff 02/06/20 08:00 02/08/20 08:13 Fluticasone/Vilanterol 200/25 Blst.W.Dev INHALE 1 puff RDAILY JASON Administration Guaifenesin 5 ml 02/06/20 09:23 02/06/20 12:13 Guaifenesin 100 Mg/5 Ml Liquid PO 5 ml Q4H PRN Administration ough Ceftriaxone Sodium 1 gm/ 50 mls @ 100 mls/hr 02/06/20 07:00 02/08/20 10:22 Sodium Chloride IV Infused Q24H JASON Infusion Lisinopril 10 mg 02/06/20 09:00 02/08/20 09:47 Lisinopril 10 Mg Tablet PO 10 mg DAILY JASON Administration Protocol Montelukast Sodium 10 mg 02/06/20 21:00 02/07/20 20:14 Montelukast Sodium 10 Mg Tablet PO 10 mg BEDTIME JASON Administration Omeprazole 20 mg 02/06/20 06:45 02/08/20 05:19 Omeprazole 20 Mg Capsule.Dr PO 20 mg BID@0630,1630 JASON Administration Ondansetron HCl 4 mg 02/05/20 23:13 Ondansetron Hcl 4 Mg/2 Ml Vial IVPUSH Q8H PRN Nausea and Vomiting Pharmacy Consult 1 each 02/05/20 22:38 Consult Rx Perform Med Rec MISCELLANE ONCE PRN Consult order Prednisone 40 mg 02/06/20 09:00 02/08/20 09:48 Prednisone 20 Mg Tablet PO 40 mg DAILY JASON Administration Sertraline HCl 100 mg 02/06/20 09:00 02/08/20 09:47 Sertraline Hcl 100 Mg Tablet PO 100 mg DAILY JASON Administration Sertraline HCl 50 mg 02/06/20 09:00 02/08/20 09:47 Sertraline Hcl 50 Mg Tablet PO 50 mg DAILY JASON Administration Sodium Chloride 3 ml 02/06/20 00:00 02/08/20 09:48 0.9 % Sodium Chloride Flush 3 Ml Syringe IVFLUSH 3 ml QSHIFT JASON Administration Labs CBC & Chem 7: 02/06/20 04:23 02/06/20 04:23 Microbiology Microbiology Results: Microbiology 02/05/20 18:54 Blood - Venous Blood Culture - Preliminary No growth after 48 hours. 12/25/20 18:54 Blood - Venous Blood Culture - Preliminary No growth after 48 hours. Assessment and Plan (1) Pneumonia: Status: Acute (2) Respiratory failure with hypoxia: Status: Acute (3) Hypertension: Status: Acute (4) Breast CA: Status: Acute (5) COVID-19: Status: Acute (6) Hypoxia: Status: Acute Assessment and Plan: Acute on chronic hypoxic respiratory failure secondary to COVID and COPD On prednisone 40mg daily, day 3 will start tapering by 10 mg, continue azithromycin day 4 On 2.5 L of oxygen at home, continue oxygen, still not feeling well enough for discharge, encourage ambulation possible discharge in next [address] Outpatient follow-up with Oncology history of breast cancer continue anastrozole hypertension continue lisinopril DVT prophylaxis: Lovenox
[2020-02-08] MEDS: Montelukast Sodium 10 MG TABLET PO (20:32)
[2020-02-08] MEDS: Amitriptyline HCl 25 MG TABLET PO (20:32)
[2020-02-09] VITALS: BP 144/86; PULSE 74; RESP 20; TEMP 36.6
[2020-02-09] MEDS: Enoxaparin Sodium 40 MG/0.4 ML SYRINGE SUBCUT (00:10)
[2020-02-09] MEDS: 0.9 % Sodium Chloride Flush 3 ML SYRINGE IVFLUSH ×2 (00:10→09:27)
[2020-02-09 03:50] VITALS: BP 157/81; PULSE 67; RESP 20; TEMP 36.8; O2SAT 96
[2020-02-09 05:37] VITALS: BMI 39.8
[2020-02-09] MEDS: Azithromycin 500 MG TABLET PO (06:02)
[2020-02-09] MEDS: Omeprazole 20 MG CAPSULE.DR PO (06:02)
[2020-02-09] MEDS: cefTRIAXone sodium 1 GM in 0.9 % Sodium Chloride 50 ML IV (06:15)
[2020-02-09 08:10] VITALS: BP 112/64; PULSE 103; RESP 20; TEMP 36.8; O2SAT 95
[2020-02-09] MEDS: Sertraline HCL 50 MG TABLET PO (09:27)
[2020-02-09] MEDS: lisinopriL 10 MG TABLET PO (09:27)
[2020-02-09] MEDS: Sertraline HCL 100 MG TABLET PO (09:27)
[2020-02-09] MEDS: Calcium + Vitamin D 250 MG TABLET PO (09:27)
[2020-02-09] MEDS: predniSONE 20 MG TABLET 40 MG PO (09:27)
[2020-02-09] MEDS: Anastrozole 1 MG TABLET PO (09:29)
--- NOTE | 2020-02-09 11:34 | PM.DS ---
DS: Providers Provider Date of admission: 02/05/20 21:27 Primary care physician: Unknown Physician DS: Diagnosis Discharge Diagnosis (1) Pneumonia: Status: Acute (2) Respiratory failure with hypoxia: Status: Acute (3) Hypertension: Status: Acute (4) Breast CA: Status: Acute (5) COVID-19: Status: Acute (6) Hypoxia: Status: Acute DS: Medications Discharge Medications Home Medications: Home Medications Medication Instructions Recorded Confirmed albuterol sulfate 2 puff INHALATION QID PRN 02/05/20 02/05/20 albuterol sulfate [Ventolin HFA] 2 puff PO QID PRN 02/05/20 02/05/20 amitriptyline 1 tab PO BEDTIME 02/05/20 02/05/20 anastrozole 1 tab PO DAILY 02/05/20 02/05/20 calcium citrate-vitamin D3 1 tab PO BID 02/05/20 02/05/20 fluticasone propion-salmeterol 1 puff PO BID 02/05/20 02/05/20 [Wixela Inhub] lisinopril 1 tab PO DAILY 02/05/20 02/05/20 montelukast 1 tab PO BEDTIME 02/05/20 02/05/20 omeprazole 1 cap PO BID 02/05/20 02/05/20 sertraline 1.5 tab PO DAILY 02/05/20 02/05/20 Previous Rx's Medication Instructions Recorded azithromycin 500 mg PO Q24H #3 tab 02/09/20 dextromethorphan-guaifenesin 10 ml PO Q4-8H PRN #237 ml 02/09/20 [Robitussin Cough-Chest Rodolfo DM] prednisone 20 mg PO DAILY #10 tab 02/09/20 DS: Summary Hospital Course Hospital Course: History of presenting illness 60-year-old female with past medical history of COPD, anxiety depression, hypertension who presents to the hospital with shortness of breath and hypoxia. Patient's visiting nurse called EMS because she was hypoxic. Patient is at baseline 2 L of oxygen but was found to be hypoxic in the 80s with presentation of EMS. She is currently on 4 L of oxygen satting 92%. Patient reports a cough, sputum production, progressively worsening shortness of breath for the past few days, she also has loss of appetite, no nausea or vomiting, no abdominal pain, no diarrhea constipation. No urinary symptoms and no lower extremity edema. To the ED medically stable with no significant abnormal vitals Labs are significant for WBC count of 3.2, hemoglobin of 15.2 hematocrit of 45.4, CMP significant for sodium of 138, potassium 3.4, AST of 32, COVID-19 positive BNP of 17. Troponin of [address] shows spiculated nodular opacity in the right upper lobe measuring 1.1 x 1 cm. This is new compared to previous study, differential consideration include infectious, inflammatory, neoplastic etiology and a CT follow-up is recommended. Patient also has emphysema on CT, and diffuse interstitial prominence in the right middle lobe and lower lobe and to a lesser degree in the left lung. These findings are new and has multifocal his peers opacity in the right mid to lower lobe concerning for asymmetric pulmonary edema as well as infectious etiology. Patient also has right pleural effusion. Past medical history: History of hypertension, breast cancer, COPD on 2 L of oxygen, depression Past surgical history: Lumpectomy Hospital course Acute on chronic hypoxic respiratory failure secondary to COVID 19 and COPD Patient responded well to treatment with steroids, IV azithromycin and ceftriaxone currently on 2 L of oxygen with stable finger oximetry around 94% therefore being discharged home on prednisone cough medication and azithromycin for total 7 days, has been recommended to rest drink plenty of fluids and continue home oxygen at 2 L Spiculated opacity on CT chest recommend Outpatient follow-up with Oncology history of breast cancer continue anastrozole hypertension continue lisinopril Time Spent with Patient Time attestation: Total time spent providing and/or coordinating discharge services: Physical Exam Vital Signs: Vital Signs: Last Vital Signs Temp 98.2 F 02/09/20 08:10 Pulse 103 H 02/09/20 08:10 Resp 20 02/09/20 08:10 BP 112/64 02/09/20 08:10 Pulse Ox 95 02/09/20 08:10 Body Mass Index 39.8 General patient resting comfortably in no acute distress. Neck is supple no JVD. CVS regular rate rhythm, Respiratory lungs coarse breath sounds, no respiratory distress, no wheeze, no rhonchi. Gastrointestinal abdomen soft, nontender, bowel sounds audible. Extremities no clubbing, cyanosis or edema. Neuro nonfocal. Skin no rash DS: Data Data Completed and Pending Labs on day of discharge: 02/05/20 Breakfast Low Sodium Diet 12/25/20 18:34 XR chest 1V Stat UA CC w/rflx Micro + Cult Stat cefTRIAXone sodium [Rocephin] 1 gm 0.9 % Sodium Chloride [Ns] 50 ml IV ONCE dexAMETHasone sod phosphate [Decadron] 6 mg IVPUSH ONCE ONE 02/05/20 18:35 ECG 12 lead EKG Stat EKG Documentation DIRECTED 02/05/20 18:38 Albuterol/Iprat 2.5/0.5MG 3 ML [Duoneb] 3 ml INHALE .STK-MED ONE 02/05/20 18:48 cefTRIAXone sodium [Rocephin] 1 gm .ROUTE .STK-MED ONE 02/05/20 18:52 B Type Natriuretic Peptide Stat Basic Metabolic Panel Stat Complete Blood Count Auto Diff Stat Lactic Acid Stat Lipase Stat Liver Panel Stat Partial Thromboplastin Time Stat Prothrombin Time INR Stat SARS-CoV2/FLU/RSV Stat Troponin-I High Sensitivity Stat 02/05/20 19:31 CT chest wo con Stat 02/05/20 21:23 Transfer Order Routine 02/05/20 21:28 Add Laboratory Test Stat 02/05/20 23:13 IV insert/maintain Q4HR Intake and Output Q8HR Vital Signs Q4HR 02/06/20 04:23 Basic Metabolic Panel Routine Complete Blood Count Auto Diff Routine SLIDE REVIEW Routine 02/06/20 06:22 cefTRIAXone sodium [Rocephin] 1 gm .ROUTE .STK-MED ONE 02/06/20 09:00 Bariatric Calcium Citrate/D3 [Celebrate Calcium Citrate/D3] 1 tab PO BID 02/07/20 08:51 cefTRIAXone sodium [Rocephin] 1 gm .ROUTE .STK-MED ONE 02/08/20 09:44 cefTRIAXone sodium [Rocephin] 1 gm .ROUTE .STK-MED ONE 02/09/20 06:12 cefTRIAXone sodium [Rocephin] 1 gm .ROUTE .STK-MED ONE Laboratory Last Values WBC 2.0 X10*3/uL (4.8-10.8) L 02/06/20 04:23 RBC 4.74 X10*6/uL (4.20-5.50) 02/06/20 04:23 Hgb 14.5 g/dl (12.0-16.0) 02/06/20 04:23 Hct 43.6 % (37-47) 02/06/20 04:23 MCV 92.0 fL (80-98) 02/06/20 04:23 MCH 30.6 pg (27.0-33.0) 02/06/20 04:23 MCHC 33.3 g/dl (31.0-35.0) 02/06/20 04:23 RDW 12.1 % (11.0-16.0) 02/06/20 04:23 Plt Count 135 X10*3/uL (160-400) L 02/06/20 04:23 MPV 10.3 fL (9.4-12.3) 02/06/20 04:23 Immature Gran % (Auto) 1.0 % (0.0-0.4) H 02/06/20 04:23 Neut % (Auto) 71.1 % (45-73) 02/06/20 04:23 Lymph % (Auto) 19.1 % (20-40) L 02/06/20 04:23 [place] % (Auto) 8.8 % (2-11) 02/06/20 04:23 Eos % (Auto) 0.0 % (0-4) 02/06/20 04:23 Baso % (Auto) 0.0 % (0-2) 02/06/20 04:23 Lymph # (Auto) 0.4 X10*3/uL (1.2-4.9) L 02/06/20 04:23 [place] # (Auto) 0.2 X10*3/uL (0.1-1.2) 02/06/20 04:23 Eos # (Auto) 0.0 X10*3/uL (0.0-0.4) 02/06/20 04:23 Baso # (Auto) 0.0 X10*3/uL (0.0-0.2) 02/06/20 04:23 Abs Immat Gran (auto) 0.02 X10*3/uL (0.00-0.03) 02/06/20 04:23 Absolute Neuts (auto) 1.5 X10*3/uL (2.0-8.3) L 02/06/20 04:23 Absolute Nucleated RBC 0.000 X10*3/uL (0.0-0.012) 02/06/20 04:23 Nucleated RBC % (auto) 0.0 /100WBC (0.0-0.2) 02/06/20 04:23 Smear Tech's Comments VERIFIED 02/06/20 04:23 Smear Path Review SEE NOTE 02/06/20 04:23 PT 12.5 SEC (10.8-13.0) 02/05/20 18:52 INR 1.1 (0.9-1.1) 02/05/20 18:52 APTT 34.1 SEC (24.1-38.0) 02/05/20 18:52 Sodium 142 mmol/L (135-145) 02/06/20 04:23 Potassium 4.1 mmol/l (3.3-5.1) D 02/06/20 04:23 Chloride 101 mmol/L (96-108) 02/06/20 04:23 Carbon Dioxide 31 mmol/L (22-29) H 02/06/20 04:23 Anion Gap 14 (-20) 02/06/20 04:23 BUN 12 mg/dL (9-16) 02/06/20 04:23 Creatinine 0.61 mg/dL (0.5-1.4) 02/06/20 04:23 Estim Creat Clear Calc 107.5 02/06/20 04:23 Estimated GFR > 60 02/06/20 04:23 Random Glucose 222 mg/dL (60-115) H D 02/06/20 04:23 Lactic Acid 0.9 mmol/L (0.5-2.0) 02/05/20 18:52 Calcium 8.3 mg/dL (8.4-10.2) L 02/06/20 04:23 Total Bilirubin 0.8 mg/dL (0.0-1.0) 02/05/20 18:52 Direct Bilirubin 0.5 mg/dL (0.0-0.5) 02/05/20 18:52 AST 32 U/L (5-31) H 02/05/20 18:52 ALT 18 U/L (0-31) 02/05/20 18:52 Alkaline Phosphatase 56 U/L (39-117) 02/05/20 18:52 Troponin I High Sens 10.4 ng/L (<3.5-17.0) 02/05/20 18:52 B-Natriuretic Peptide 17 pg/mL (<100) 02/05/20 18:52 Total Protein 6.1 g/dL (6.5-8.0) L 02/05/20 18:52 Albumin 3.6 g/dL (3.5-5.0) 02/05/20 18:52 Lipase 27 U/L (8-78) 02/05/20 18:52 Urine Color YELLOW 02/06/20 12:34 Urine Appearance HAZY 02/06/20 12:34 Urine pH 6.5 (5.0-8.0) 02/06/20 12:34 Ur Specific [place] 1.025 (1.005-1.025) 02/06/20 12:34 Urine Protein TRACE MG/DL (NEG-TRACE) 02/06/20 12:34 Urine Glucose (UA) 250 MG/DL (NEG) H 02/06/20 12:34 Urine Ketones 15 MG/DL (NEG) 02/06/20 12:34 Urine Blood NEG (NEG) 02/06/20 12:34 Urine Nitrite NEG (NEG) 02/06/20 12:34 Ur Leukocyte Esterase NEG (NEG) 02/06/20 12:34 Coronavirus (PCR) POSITIVE (Negative) A 02/05/20 18:52 Influenza Type A (PCR) NEGATIVE (Negative) 02/05/20 18:52 Influenza Type B (PCR) NEGATIVE (Negative) 02/05/20 18:52 RSV RNA Qual (PCR) NEGATIVE (Negative) 02/05/20 18:52 Preliminary micro results at discharge 02/05/20 18:54 Blood Culture - Preliminary Blood - Venous No growth after 48 hours. 02/05/20 18:54 Blood Culture - Preliminary Blood - Venous No growth after 48 hours. Discharge Plan Discharge Patient Disposition: Home, Self-Care Referrals: Physician,Unknown [Primary Care Provider] - Discharge Medications: New azithromycin 500 mg Tablet 500 mg PO Q24H Qty: 3 RF: 0 prednisone 20 mg tablet 20 mg PO DAILY Qty: 10 RF: 0 Robitussin Cough-Chest Rodolfo DM 5-100 mg/5 mL liquid 10 ml PO Q4-8H PRN (Reason: cough) Qty: 237 RF: 0 Continued amitriptyline 25 mg tablet 1 tab PO BEDTIME RF: 0 lisinopril 10 mg tablet 1 tab PO DAILY RF: 0 anastrozole 1 mg tablet 1 tab PO DAILY RF: 0 sertraline 100 mg tablet 1.5 tab PO DAILY RF: 0 fluticasone propion-salmeterol [Wixela Inhub] 500-50 mcg/dose blister with device 1 puff PO BID RF: 0 omeprazole 20 mg capsule,delayed release(DR/EC) 1 cap PO BID RF: 0 montelukast 10 mg tablet 1 tab PO BEDTIME RF: 0 albuterol sulfate [Ventolin HFA] 90 mcg/actuation HFA aerosol inhaler 2 puff PO QID PRN (Reason: wheezing) RF: 0 albuterol sulfate 90 mcg/actuation HFA aerosol inhaler 2 puff inhalation QID PRN (Reason: wheezing) RF: 0 calcium citrate-vitamin D3 315 mg-6.25 mcg (250 unit) tablet 1 tab PO BID RF: 0 Discharge Orders: Discharge Order (Routine); Ordered 02/09/20 Ordered By: Michell Marcelino Diet: low fat, low cholesterol Activity on Discharge: As tolerated Visit Report Forms: Patient Portal Discharge page Care Plan Goals: Continue to use home oxygen 2 L by nasal cannula rest, drink fluids, return to check with any worsening shortness of breath or hypoxia Health Concerns: Outpatient follow-up with Oncology and PCP for repeat CT chest or PET scan due to spiculated opacity on CT chest Plan of Treatment: Outpatient follow-up with primary care physician
--- NOTE | 2020-02-09 11:50 | MHC.CM.PN ---
Patient has been medically cleared for dc to home today, no services. CM spoke with Patient on her cell phone, who is very pleased to be going home today.Patient declined receiving another IMM.
[2020-02-09 20:03] LABS: Strep Pneumo Ag urine Not Detected (Not Detected)
[2020-02-16 19:37] LABS: Legionella Ag Urine Not Detected (Not Detected)
== END 2020-02-09 13:30 | disposition home or self-care (01) | DRG 177 ==
LOC: HO.ED 20:02 → HO.IMC 22:19
PROVIDERS: Nurse Practitioner Family; Admitting Provider Internal Medicine; Emergency Provider Student in an Organized Health Care Education/Training Program; Visit Provider Hospitalist
DX: U07.1 COVID-19 (principal); J96.21 Acute and chronic respiratory failure with hypoxia; I10 Essential (primary) hypertension; C50.919 Malignant neoplasm of unspecified site of unspecified female breast; Z87.891 Personal history of nicotine dependence; Z99.81 Dependence on supplemental oxygen; Z88.2 Allergy status to sulfonamides; Z88.5 Allergy status to narcotic agent; Z79.51 Long term (current) use of inhaled steroids; Z79.899 Other long term (current) drug therapy
CPT/HCPCS: 0241U; 36415; 71045; 71250; 80048; 80076; 81003; 83605; 83690; 83880; 84484; 85025; 85610; 85730; 87040; 87449; 87899; 93005; 96365; 96375; 99285; 99291; J0696; J1100; J1650

== ENCOUNTER 2021-06-14 19:52 | Emergency (ER) | payer OTHER, SELFPAY ==
--- NOTE | ~2021-06-14 | XR_ITS ---
EXAMINATION: XR CHEST CLINICAL INFORMATION: Shortness of breath COMPARISON: 02/05/2020 TECHNIQUE: Frontal view of the chest was obtained. FINDINGS: The lungs are hyperinflated, and there is a coarsened appearance to the interstitium in keeping with COPD/emphysema is noted previously. No acute consolidation is seen. No evidence of pneumothorax, significant pleural effusion, or overt pulmonary edema. The cardiomediastinal contour is unremarkable. No acute osseous findings are seen. XR/XR chest 1V IMPRESSION: Redemonstrated findings of emphysema/COPD without definite acute abnormality.
[2021-06-14 22:05] VITALS: BP 143/77; PULSE 92; RESP 18; TEMP 36.8; O2SAT 98; BMI 25.7
[2021-06-14 22:19] LABS: Appearance Urine HAZY; Color Urine YELLOW; Glucose Urine UA NEG (NEG); Leukocyte Esterase Urine 3+ (NEG); Nitrite Urine POS (NEG); UACC Culture Trigger YES; Urine Blood 3+ (NEG); Urine Ketones NEG (NEG); Urine Protein 1+ MG/DL (NEG-TRACE)
[2021-06-14 22:26] LABS: Bacteria Urine 2+ /LPF; WBC Urine 50-75 /HPF (0-4)
--- NOTE | 2021-06-14 22:40 | ED.FEMALEGU ---
HPI - Female Genitourinary General Chief complaint: Urogenital-Female Stated complaint: uti, fevers, vag bleeding, copd? Time Seen by Provider: 06/14/21 22:15 Source: patient Mode of arrival: wheelchair Limitations: no limitations History of Present Illness HPI Narrative: 61-year-old female with a history of COPD on chronic oxygen, hypertension, breast cancer status post surgical intervention and radiation 5 years ago here with reports of several days of urinary urgency, dribbling urine, suprapubic pressure with discomfort. Today noticed some pink tinged urine. Also feeling like she had a tactile fever at home last few days. Did not check her temperature. No weakness, vomiting, flank pain. Patient does report she has chronic shortness of breath but feels like her breathing has been a little bit more labored than normal over the last few days. No chest pain. Related Data Home Medications Medication Instructions Recorded Confirmed albuterol sulfate 90 mcg/actuation 2 puff INHALATION QID PRN 02/05/20 02/05/20 aerosol inhaler albuterol sulfate 90 mcg/actuation 2 puff PO QID PRN 02/05/20 02/05/20 aerosol inhaler (Ventolin HFA) amitriptyline 25 mg tablet 1 tab PO BEDTIME 02/05/20 02/05/20 anastrozole 1 mg tablet 1 tab PO DAILY 02/05/20 02/05/20 calcium citrate 315 mg 1 tab PO BID 02/05/20 02/05/20 calcium-vitamin D3 6.25 mcg (250 unit) tablet fluticasone 500 mcg-salmeterol 50 1 puff PO BID 02/05/20 02/05/20 mcg/dose blistr powdr for inhalation (Wixela Inhub) lisinopril 10 mg tablet 1 tab PO DAILY 02/05/20 02/05/20 montelukast 10 mg tablet 1 tab PO BEDTIME 02/05/20 02/05/20 omeprazole 20 mg capsule,delayed 1 cap PO BID 02/05/20 02/05/20 release sertraline 100 mg tablet 1.5 tab PO DAILY 02/05/20 02/05/20 Previous Rx's Medication Instructions Recorded azithromycin 500 mg tablet 500 mg PO Q24H #3 tab 02/09/20 dextromethorphan-guaifenesin 5 10 ml PO Q4-8H PRN #237 ml 02/09/20 mg-100 mg/5 mL oral liquid (Robitussin Cough-Chest Congestion DM) prednisone 20 mg tablet 20 mg PO DAILY #10 tab 02/09/20 levofloxacin 750 mg tablet 750 mg PO DAILY 6 Days #6 tab 06/14/21 prednisone 20 mg tablet 40 mg PO DAILY #10 tab 06/14/21 Allergies Allergy/AdvReac Type Severity Reaction Status Date / Time Sulfa (Sulfonamide Allergy Mild RASH Verified 02/05/20 18:39 Antibiotics) codeine [Codeine] AdvReac Mild NEAR Verified 02/05/20 18:39 SYNCOPE epoprostenol [From Flolan] AdvReac Mild NAUSEA & Verified 02/05/20 18:39 VOMITING Codeine Sulfate Allergy Unknown fainted Uncoded 02/05/20 18:39 Review of Systems Review of Systems: Yes all other systems are reviewed and are negative Constitutional: Constitutional: Reports no additional constitutional complaints, Denies body ache(s), Denies chills, Reports fever(s) (tactile ), Denies headache(s) and Denies weakness Eyes: Eyes: Reports no additional eye complaints and Denies change in vision ENT: Reports system reviewed and no additional complaints, except as documented, Denies dizziness, Denies headache(s), Denies nasal congestion, Denies nasal discharge and Denies neck pain Cardiovascular: Cardiovascular: Reports no additional cardiovascular complaints, Denies chest pain, Denies leg edema and Reports dyspnea Respiratory: Respiratory: Reports no additional respiratory complaints, Denies cough and Reports dyspnea Gastrointestinal: Gastrointestinal: Reports no additional gastrointestinal complaints, Denies abdominal pain, Denies diarrhea, Denies nausea and Denies vomiting Genitourinary: Genitourinary: Reports no additional female genitourinary complaints, Reports hematuria, Reports difficulty voiding, Reports post void dribbling, Denies dysuria, Denies urinary incontinence, Reports urinary hesitancy and Reports urinary urgency Musculoskeletal: Musculoskeletal: Reports no additional musculoskeletal complaints, Denies back pain, Denies arthralgias, Denies joint swelling, Denies neck pain, Denies numbness and Denies tingling Integumentary/Breasts: Skin/Breast: Reports system reviewed and no additional complaints, except as docu and Denies rash Neurologic: Reports system reviewed and no additional complaints, except as documented, Denies Abnormal speech present, Denies dizziness, Denies headache(s), Denies numbness, Denies tingling and Denies weakness [facility] Past Medical History Attestation statement: The following information was validated with the patient. Source: old records reviewed and nursing notes reviewed Medical History Breast CA Hypertension Surgical History H/O lumpectomy Social History Social History Household Members: None Housing: House Advance Directives: No Advance Directives Information Provided: No Physical Exam Vital Signs: Vital Signs: Last Vital Signs Temp 98.3 F 06/14/21 22:05 Pulse 92 06/14/21 22:05 Resp 18 06/14/21 22:05 BP 143/77 H 06/14/21 22:05 Pulse Ox 98 06/14/21 22:05 BMI result Body Mass Index 25.7 Const: General: cooperative, healthy appearing, comfortable and no acute distress Orientation/consciousness: patient oriented x3 Limitations: no limitations HEENT: Head: Yes normal to inspection Ears: hearing grossly normal bilaterally General nose exam: Normal external nose present Face and sinus: Yes normal facial exam Mouth: Normal oral and palatal mucosa present Throat: Yes posterior oropharynx normal Eyes: General: appearance normal, both eyes and all related structures Pupils: Equal, round and reactive pupils present Neck: Neck: Yes normal visual inspection Chest: Chest palpation & inspection: normal inspection of the chest Resp: Other: Mild expiratory wheezing throughout Effort & Inspection: normal respiratory effort Cardio: Rate: regular rate Rhythm: regular rhythm Peripheral pulses: Peripheral pulses 2+ throughout GI: Inspection: Yes normal to inspection Palpation (GI): Soft to palpation and nontender Auscultation: normal bowel sounds : General: Yes no CVA tenderness Back/Spine/Pelvis: Back: no CVA tenderness Thoracic/Lumbar Spine: thoracic and lumbar spine normal to inspection Skin: General skin exam: no rashes or lesions noted Neuro: General: patient oriented x3, no focal motor deficits and normal sensation to monofilament Cranial nerves: Yes Equal, round and reactive pupils present Cognition (Neuro): normal cognition Speech: No Abnormal speech present Gait exam (Neuro): Normal gait present Motor exam (neuro): 5/5 motor strength present throughout Extrem: General: Yes normal to inspection, Yes no pedal edema and Yes no calf tenderness Course Course Course Narrative: 61-year-old female with a history of COPD on chronic oxygen here with reports of several days of urinary urgency, voiding small amounts, hematuria, suprapubic pressure, tactile temps. Also complaining of some slightly increased shortness of breath from her baseline. No chest pain. On exam the patient has no focal abdominal pain, no CVA tenderness. She does have some mild expiratory wheezing throughout. Her vitals are stable. UA from triage c/w UTI. Due to reports of fever at home will check labs including blood cultures and lactic acid. No fever here. Will also check chest x-ray. Anticipate discharge home. Reevaluation(s) Reevaluation #1: Labs show no leukocytosis. Normal renal function. Chest x-ray shows chronic changes consistent with COPD. No evidence of pneumonia Patient given a course of oral antibiotics and prednisone while she was here in the emergency department. Plan for discharge home to continue course. Reviewed worrisome signs and symptoms and when to return to the emergency department. Comfortable discharge home. Time: 23:57 MDM - Female Genitourinary MDM Narrative Medical decision making narrative: copd exacerbation, PNA Differential Diagnosis Differential diagnosis: Likely urinary tract infection Medical Records Attestation: I reviewed the patient's medical records. Lab Data Attestation: I reviewed the patient's lab results. Result diagrams: 06/14/21 23:12 06/14/21 22:55 Labs: Lab Results 06/14/21 06/14/21 06/14/21 Range/Units 22:10 22:55 23:12 WBC 8.9 (4.8-10.8) X10*3/uL RBC 4.95 (4.20-5.50) X10*6/uL Hgb 15.1 (12.0-16.0) g/dl Hct 45.7 (37.0-47.0) % MCV 92.3 (80.0-98.0) fL MCH 30.5 (27.0-33.0) pg MCHC 33.0 (31.0-35.0) g/dl RDW 12.8 (11.0-16.0) % Plt Count 218 (160-400) X10*3/uL MPV 10.0 (9.4-12.3) fL Immature Gran % (Auto) 0.3 (0.0-0.4) % Neut % (Auto) 73.1 H (45-73) % Lymph % (Auto) 13.8 L (20-40) % [place] % (Auto) 7.0 (2-11) % Eos % (Auto) 5.4 H (0-4) % Baso % (Auto) 0.4 (0-2) % Lymph # (Auto) 1.2 (1.2-4.9) X10*3/uL [place] # (Auto) 0.6 (0.1-1.2) X10*3/uL Eos # (Auto) 0.5 H (0.0-0.4) X10*3/uL Baso # (Auto) 0.0 (0.0-0.2) X10*3/uL Abs Immat Gran (auto) 0.03 (0.00-0.03) X10*3/uL Absolute Neuts (auto) 6.5 (2.0-8.3) x10*3/uL Absolute Nucleated RBC 0.000 (0.0-0.012) X10*3/uL Nucleated RBC % (auto) 0.0 (0.0-0.2) /100WBC Sodium 141 (135-145) mmol/L Potassium 4.2 (3.3-5.1) mmol/L Chloride 104 (96-108) mmol/L Carbon Dioxide 29 (22-29) mmol/L Anion Gap 12 (12-20) BUN 12 (9-16) mg/dL Creatinine 0.77 (0.5-1.4) mg/dL Estim Creat Clear Calc 72.7 Estimated GFR > 60 Random Glucose 142 H (60-115) mg/dL Lactic Acid (0.5-2.0) mmol/L Calcium 9.4 D (8.4-10.2) mg/dL Urine Color YELLOW Urine Appearance HAZY Urine pH 6.0 (5.0-8.0) Ur Specific [place] 1.010 (1.005-1.025) Urine Protein 1+ H (NEG-TRACE) MG/DL Urine Glucose (UA) NEG (NEG) MG/DL Urine Ketones NEG (NEG) MG/DL Urine Blood 3+ H (NEG) Urine Nitrite POS H (NEG) Ur Leukocyte Esterase 3+ H (NEG) Urine RBC 15-29 H (0) /HPF Urine WBC 50-75 H (0-4) /HPF Ur Squamous Epith Cells NONE /LPF Urine Bacteria 2+ /LPF 06/14/21 Range/Units 23:12 WBC (4.8-10.8) X10*3/uL RBC (4.20-5.50) X10*6/uL Hgb (12.0-16.0) g/dl Hct (37.0-47.0) % MCV (80.0-98.0) fL MCH (27.0-33.0) pg MCHC (31.0-35.0) g/dl RDW (11.0-16.0) % Plt Count (160-400) X10*3/uL MPV (9.4-12.3) fL Immature Gran % (Auto) (0.0-0.4) % Neut % (Auto) (45-73) % Lymph % (Auto) (20-40) % [place] % (Auto) (2-11) % Eos % (Auto) (0-4) % Baso % (Auto) (0-2) % Lymph # (Auto) (1.2-4.9) X10*3/uL [place] # (Auto) (0.1-1.2) X10*3/uL Eos # (Auto) (0.0-0.4) X10*3/uL Baso # (Auto) (0.0-0.2) X10*3/uL Abs Immat Gran (auto) (0.00-0.03) X10*3/uL Absolute Neuts (auto) (2.0-8.3) x10*3/uL Absolute Nucleated RBC (0.0-0.012) X10*3/uL Nucleated RBC % (auto) (0.0-0.2) /100WBC Sodium (135-145) mmol/L Potassium (3.3-5.1) mmol/L Chloride (96-108) mmol/L Carbon Dioxide (22-29) mmol/L Anion Gap (12-20) BUN (9-16) mg/dL Creatinine (0.5-1.4) mg/dL Estim Creat Clear Calc Estimated GFR Random Glucose (60-115) mg/dL Lactic Acid 0.7 (0.5-2.0) mmol/L Calcium (8.4-10.2) mg/dL Urine Color Urine Appearance Urine pH (5.0-8.0) Ur Specific [place] (1.005-1.025) Urine Protein (NEG-TRACE) MG/DL Urine Glucose (UA) (NEG) MG/DL Urine Ketones (NEG) MG/DL Urine Blood (NEG) Urine Nitrite (NEG) Ur Leukocyte Esterase (NEG) Urine RBC (0) /HPF Urine WBC (0-4) /HPF Ur Squamous Epith Cells /LPF Urine Bacteria /LPF Imaging Data Chest x-ray: Attestation: I personally reviewed and interpreted this imaging study as follows: Radiologist's impression: FINDINGS: The lungs are hyperinflated, and there is a coarsened appearance to the interstitium in keeping with COPD/emphysema is noted previously. No acute consolidation is seen. No evidence of pneumothorax, significant pleural effusion, or overt pulmonary edema. The cardiomediastinal contour is unremarkable. No acute osseous findings are seen. XR/XR chest 1V IMPRESSION: Redemonstrated findings of emphysema/COPD without definite acute abnormality. ? Discharge Plan Discharge Clinical Impression: Urinary tract infection, COPD exacerbation Patient Disposition: Home, Self-Care Instructions: COPD (Chronic Obstructive Pulmonary Disease) (DC), Urinary Tract Infection in Older Adults (ED) Additional Instructions: Return for weakness, vomiting, high fever Prescriptions: New levofloxacin 750 mg tablet 750 mg PO DAILY 6 Days Qty: 6 0RF prednisone 20 mg tablet 40 mg PO DAILY Qty: 10 0RF No Action amitriptyline 25 mg tablet 1 tab PO BEDTIME 0RF lisinopril 10 mg tablet 1 tab PO DAILY 0RF anastrozole 1 mg tablet 1 tab PO DAILY 0RF sertraline 100 mg tablet 1.5 tab PO DAILY 0RF fluticasone propion-salmeterol [Wixela Inhub] 500-50 mcg/dose blister with device 1 puff PO BID 0RF omeprazole 20 mg capsule,delayed release(DR/EC) 1 cap PO BID 0RF montelukast 10 mg tablet 1 tab PO BEDTIME 0RF albuterol sulfate [Ventolin HFA] 90 mcg/actuation HFA aerosol inhaler 2 puff PO QID PRN (Reason: wheezing) 0RF albuterol sulfate 90 mcg/actuation HFA aerosol inhaler 2 puff inhalation QID PRN (Reason: wheezing) 0RF calcium citrate-vitamin D3 315 mg-6.25 mcg (250 unit) tablet 1 tab PO BID 0RF azithromycin 500 mg Tablet 500 mg PO Q24H Qty: 3 0RF prednisone 20 mg tablet 20 mg PO DAILY Qty: 10 0RF Robitussin Cough-Chest Rodolfo DM 5-100 mg/5 mL liquid 10 ml PO Q4-8H PRN (Reason: cough) Qty: 237 0RF Referrals: Carmen Burk, DRY TALC RACKER [Primary Care Provider] - 5 days (for persistent symptoms )
[2021-06-14 23:13] LABS: Anion Gap 12 (12-20); Blood Urea Nitrogen 12 mg/dL (9-16); Calcium 9.4 mg/dL (8.4-10.2); Carbon Dioxide 29 mmol/L (22-29); Chloride 104 mmol/L (96-108); Creatinine Clr Calc Pharmacy 72.7; Estimated Glomerular Filt Rate > 60; Glucose Random 142 mg/dL (60-115); Potassium 4.2 mmol/L (3.3-5.1); Sodium 141 mmol/L (135-145)
[2021-06-14 23:17] LABS: MANUAL DIFF FLAG NO
[2021-06-14 23:18] LABS: Basophils Percent Auto 0.4 % (0-2); Eosinophils Absolute Auto 0.5 X10*3/uL (0.0-0.4); Eosinophils Percent Auto 5.4 % (0-4); Hematocrit 45.7 % (37.0-47.0); Hemoglobin 15.1 g/dl (12.0-16.0); Imm Gran Abs Auto 0.03 X10*3/uL (0.00-0.03); Imm Gran Pct Auto 0.3 % (0.0-0.4); Lymphocytes Absolute Auto 1.2 X10*3/uL (1.2-4.9); Lymphocytes Percent Auto 13.8 % (20-40); Mean Corpuscular Hemoglobin 30.5 pg (27.0-33.0); Mean Corpuscular Volume 92.3 fL (80.0-98.0); Monocytes Absolute Auto 0.6 X10*3/uL (0.1-1.2); Neutrophils Absolute Auto 6.5 x10*3/uL (2.0-8.3); Neutrophils Percent Auto 73.1 % (45-73); Platelet Count 218 X10*3/uL (160-400); Red Blood Count 4.95 X10*6/uL (4.20-5.50); Red Cell Distribution Width 12.8 % (11.0-16.0); White Blood Count 8.9 X10*3/uL (4.8-10.8)
[2021-06-14 23:29] LABS: Lactic Acid 0.7 mmol/L (0.5-2.0)
[2021-06-15] MEDS: predniSONE 20 MG TABLET 40 MG PO (00:06)
[2021-06-15] MEDS: levoFLOXacin 750 MG TABLET PO (00:06)
== END 2021-06-15 00:11 | disposition home or self-care (01) ==
PROVIDERS: Nurse Practitioner Family; Emergency Provider Internal Medicine; PCP Nurse Practitioner Family
DX: N39.0 Urinary tract infection, site not specified (principal); J44.1 Chronic obstructive pulmonary disease with (acute) exacerbation; I10 Essential (primary) hypertension; Z99.81 Dependence on supplemental oxygen
CPT/HCPCS: 36415; 71045; 80048; 81001; 83605; 85025; 87040; 87086; 87088; 87186; 99283

== ENCOUNTER 2022-03-26 13:01 | Inpatient (IN) | payer OTHER, SELFPAY ==
[2022-03-26] VITALS (23 sets, daily range): BP systolic 89–150; BP diastolic 38–84; PULSE 66–130; RESP 18–34; TEMP 35–38; O2SAT 89–100; BMI 35.9
--- NOTE | ~2022-03-26 | CT_ITS ---
EXAMINATION: CT ANGIOGRAM OF THE CHEST WITH AND WITHOUT CONTRAST (CT PULMONARY ANGIOGRAM FOR PE) CLINICAL INFORMATION: Reason for Exam hypoxic, tachycardic, + dimer, hx breast CA COMPARISON: CT chest 02/05/2020 TECHNIQUE: Prior to contrast administration, noncontrast localization images were obtained. Subsequently, multidetector volumetric imaging was performed from the thoracic inlet to below the diaphragms following the administration of 65 mL Omnipaque 350 intravenous contrast. No contrast reaction reported Sagittal, coronal, and MIP oblique sagittal reformatted images were obtained on the CT workstation, uploaded to PACS, and reviewed. This CT examination was performed using dose optimization techniques as appropriate, variously including the following: *Automated exposure control *Adjustment of mA and/or kV according to patient size (this includes techniques or standardized protocols for targeted exams where dose is matched to indication/reason for exam; i.e. extremities or head) *Use of iterative reconstruction technique Total exam dose-length product 583 mGy-cm FINDINGS: QUALITY OF STUDY/CONTRAST BOLUS: The bolus is satisfactory. Significant motion artifact is seen markedly interfering with diagnosis. PULMONARY ARTERIES: No central or large segmental pulmonary emboli. THORACIC AORTA: No aneurysm or dissection. LUNG: There is evidence of COPD with bullous formation at the apices. There is a new pleural-based area of atelectasis/infiltrate in the right upper lobe medially (3:139). There is been clearing of some right upper lobe infiltrate medially no longer seen (prior 5:72). There is a new area of infiltrate in the left upper lobe posteriorly adjacent to the fissure (6:254-319). There is new Right lower lobe atelectasis/infiltrate (6:424). PLEURA: No large pleural effusion or pneumothorax. MEDIASTINUM: Normal heart size. No pericardial effusion. Pulmonary arteries are mildly dilated suggesting pulmonary hypertension. No evidence of right heart strain. Right hilar/infrahilar lymph nodes are seen, possibly reactive. CORONARY ARTERY CALCIFICATION: None visualized on this study. CHEST WALL/AXILLA: No axillary or internal mammary lymphadenopathy. OSSEOUS STRUCTURES: No acute or suspicious osseous abnormality. UPPER ABDOMEN: Unremarkable. No reflux of contrast into the hepatic veins to suggest elevated right heart pressures. CT/CT angio chest PE protocol IMPRESSION: 1. The study is extremely limited because of marked motion artifact. No large pulmonary emboli are detected. 2. New areas of atelectasis/infiltrate as described above. Follow-up CT scan to a short clearing of these abnormalities is recommended after treatment especially given the history of malignancy. 3. Underlying COPD. VTE: Negative, but extremely limited.
--- NOTE | ~2022-03-26 | XR_ITS ---
EXAMINATION: XR CHEST CLINICAL INFORMATION: COPD. COMPARISON: Chest x-ray 06/14/2021 TECHNIQUE: Frontal view of the chest was obtained. 1:33 PM FINDINGS: Tubes and lines: 1. Right IJ catheter tip in the origin of the superior vena cava at the right superior mediastinum. There is no pneumothorax. Coarse reticular markings in the lungs which have increased since prior study 06/14/2021. May be due to interstitial edema versus interstitial pneumonia. Lung markings are greater in the right than the left lung. No focal dense consolidation. No pleural effusion. XR/XR chest 1V IMPRESSION: 1. Right IJ catheter tip in the origin of the superior vena cava at the right superior mediastinum. There is no pneumothorax. 2. Coarse reticular markings in the lungs which have increased since prior study 06/14/2021.
--- NOTE | ~2022-03-26 | XR_ITS ---
EXAMINATION: XR CHEST CLINICAL INFORMATION: Triple-lumen catheter placement verification. COMPARISON: 03/26/2022 TECHNIQUE: Frontal view of the chest was obtained. FINDINGS: Endotracheal tube terminates 2.5 cm above the мария. Enteric tube extends into the stomach. Cardiac leads overlie the chest. There is a new right internal jugular central venous catheter terminates near the cavoatrial junction. The lungs are well expanded. Similar appearance of a small right-sided pleural effusion with airspace opacity. Diffuse bronchial wall thickening. No pneumothorax. The cardiomediastinal silhouette is unchanged. XR/XR chest 1V IMPRESSION: 1. There is a new right internal jugular central venous catheter terminating near the cavoatrial junction. No pneumothorax. 2. Endotracheal tube terminating 2.5 cm above the мария. 3. Similar appearance of a small right pleural effusion with airspace opacity. Persistent bronchial wall thickening.
--- NOTE | ~2022-03-26 | XR_ITS ---
EXAMINATION: XR chest 1V CLINICAL INFORMATION: Reason for Exam intubation COMPARISON: Chest radiograph 03/26/2022 TECHNIQUE: One view of the chest FINDINGS: Endotracheal tube tip is low lying terminating 1.6 cm above the мария. Enteric tube courses below the level of the diaphragm tip not imaged. Increasing small right pleural effusion and increasing right basilar opacities. Background of mild bronchial wall thickening. No pneumothorax or pleural effusion. Normal cardiomediastinal silhouette. XR/XR chest 1V IMPRESSION: * Endotracheal tube tip is low lying terminating 1.6 cm above the мария. * Increasing small right pleural effusion and increasing right basilar opacities which may reflect infection or aspiration and atelectasis. Background of mild bronchial wall thickening which can be seen in the setting of small airways process such as bronchitis or atypical/viral infection.
--- NOTE | 2022-03-26 13:13 | ECG_ITS ---
Test Reason : DYSPNEA Blood Pressure : / mmHG Vent. Rate : 129 BPM Atrial Rate : 000 BPM P-R Int : 000 ms QRS Dur : 074 ms QT Int : 412 ms P-R-T Axes : 000 -47 038 degrees QTc Int : 603 ms Sinus tachycardia Left anterior fascicular block nonspecific T wave changes Abnormal ECG When compared with ECG of 05-FEB-2020 18:38, Sinus tachycardia now present Referred By: Radha Duckwotrh Electronically Signed By:Abraham Mathew
--- NOTE | 2022-03-26 13:18 | ED.SOB ---
HPI - SOB/Dyspnea General Chief Complaint: Dyspnea Stated Complaint: diff breathing 98% on home o2 per ems Time Seen by Provider: 03/26/22 13:03 Source: patient and EMS Mode of arrival: EMS Limitations: no limitations History of Present Illness HPI Narrative: Patient comes to the emergency room complaining of shortness of breath for 2 days. Patient states she has been coughing more than usual. Patient known to have COPD, uses couple of L of oxygen at home. Today, according to EMS, patient's oxygen saturation was in the low 50s on 2L O2, patient was given a DuoNeb and placed on a non-rebreather 15 L, oxygen saturation improved to the low 90s. Patient denies nausea vomiting diarrhea. Patient states that she has not been eating much for the last couple days. Denies chest pain. Related Data Home Medications Medication Instructions Recorded Confirmed albuterol sulfate 90 mcg/actuation 2 puff inhalation QID PRN wheezing 02/05/20 03/26/22 aerosol inhaler anastrozole 1 mg tablet 1 tab PO DAILY 02/05/20 03/26/22 lisinopril 10 mg tablet 1 tab PO DAILY 02/05/20 03/26/22 montelukast 10 mg tablet 1 tab PO BEDTIME 02/05/20 03/26/22 omeprazole 20 mg capsule,delayed 1 cap PO BID 02/05/20 03/26/22 release sertraline 100 mg tablet 1.5 tab PO DAILY 02/05/20 03/26/22 hydroxyzine pamoate 25 mg capsule 1 cap PO BID PRN Anxiety 03/26/22 03/26/22 multivitamin 1 tab PO DAILY 03/26/22 03/26/22 trazodone 50 mg tablet 1 tab PO BEDTIME 03/26/22 03/26/22 Allergies Allergy/AdvReac Type Severity Reaction Status Date / Time Sulfa (Sulfonamide Allergy Mild RASH Verified 02/05/20 18:39 Antibiotics) codeine [Codeine] AdvReac Mild NEAR Verified 02/05/20 18:39 SYNCOPE epoprostenol [From Flolan] AdvReac Mild NAUSEA & Verified 02/05/20 18:39 VOMITING Codeine Sulfate Allergy Unknown fainted Uncoded 02/05/20 18:39 Review of Systems Review of Systems: Constitutional : No Weight loss, No Fever, No Chills, No Night Sweats, No Fatigue, No Malaise ENT/Mouth : No Hearing loss, No Ear Pain, No Nasal Congestion, No Sinus Pain, No Hoarseness, No sore throat, No Rhinorrhea, No Swallowing Difficulty Eyes: No Eye Pain, No Swelling, No Redness, No Foreign Body, No Discharge, No Vision Changes Cardiovascular : No Chest Pain, No SOB, No Dyspnea on Exertion, No Orthopnea, No Edema, No Palpitations Respiratory : Complaining of cough, sputum production, wheezing Gastrointestinal : No Nausea, No Vomiting, No Diarrhea, No Constipation, No abdominal Pain, No Hematochezia, No Melena Genitourinary : no irregular bleeding, No Dysuria, No Urinary Frequency, No Hematuria, No Urinary Incontinence, No Urgency, No Flank Pain, No Urinary Flow Changes, No Hesitancy Musculoskeletal : No joint pain, No Myalgias, No Joint Swelling Skin : No Skin Lesions, No rash Neuro : No Weakness, No Numbness, No Paresthesias, No Loss of Consciousness, No Dizziness, No Headache Psych : No Anxiety/Panic, No Depression, No SI/HI/AH/VH, No Social Issues, Heme/Lymph: No Bruising, No Bleeding,No Lymphadenopathy Endocrine : No Polyuria, No Polydipsia, No Temperature Intolerance [facility] Past Medical History Medical History (Updated 03/26/22 @ 19:10 by Radha Duckworth MD) Breast CA COPD (chronic obstructive pulmonary disease) Hypertension Surgical History H/O lumpectomy Social History Social History Household Members: None Housing: House Patient Tobacco Use Status: Former Tobacco user Smoked in Last 30 Days: No Advance Directives: Yes Advance Directives Information Provided: No Advance Directives on File: No Patient : No Physical Exam Vital Signs: Vital Signs: Last Vital Signs Temp 100.4 F 03/26/22 14:49 Pulse 92 03/26/22 18:52 Resp 20 03/26/22 18:52 BP 141/79 H 03/26/22 18:52 Pulse Ox 90 L 03/26/22 18:52 O2 Del Method 03/26/22 16:30 FiO2 30 03/26/22 18:03 BMI result Body Mass Index 35.9 Const: Other: Appearance: Alert. Oriented X3. Ill-appearing Eyes: Pupils equal, round and reactive to light. ENT: Pharynx normal. Neck: Normal inspection. Neck supple. No lymph nodes noted. No crepitus CVS: Normal heart rate and rhythm. Pulses normal. Normal S1 and S2 Respiratory: Bilateral wheezing, significant chest tightness, where move Abdomen: Soft and nontender. No rigidity. No distention. Skin: Skin warm and dry. Normal skin color. Normal skin turgor. Extremities: No lower extremity edema. No Lacerations. No Rash Neuro: Oriented X 3. No motor deficit. No sensory deficit. Moving all extremities. No slurred speech. CN 2 through 12 grossly intact Psych: calm, cooperative, normal affect Course Course Course Narrative: -patient was given 1 DuoNeb by EMS -at this time, patient receiving hour long albuterol nebulization treatment, Solu-Medrol, magnesium. -patient empirically being treated with IV fluids based on ideal weight 55 kg, patient is obese. Also patient started on ceftriaxone and azithromycin. -all the patient's labs and imaging are pending -patient continues to gradually decline, accessory muscle breathing, obtunded. -Dr. Carrillo is at bedside, patient's son at bedside, it was explained to him that his mother is declining significantly, respiratory failure. At this time, it is best to intubate the patient. -CTA has been done but it is pending. Dr. Carrillo aware. -patient being admitted to intensive care unit. Medications Administered Generic Name Dose Route Start Last Admin Trade Name Freq PRN Reason Stop Dose Admin Propofol 1,000 mg in 100 mls @ 0 mls/hr 03/26/22 18:00 03/26/22 18:52 Diprivan IVCONT 40 mcg/kg/min .Q0M JASON 22.82 mls/hr Titration Protocol Per Protocol Discontinued Medications Generic Name Dose Route Start Last Admin Trade Name Freq PRN Reason Stop Dose Admin Albuterol Sulfate 10 mg 03/26/22 13:13 03/26/22 13:33 Albuterol Sulfate (0.083%) 2.5 Mg/3 Ml Vial.Neb INHALE 03/26/22 13:14 10 mg ONCE ONE Administration Albuterol Sulfate 7.5 mg 03/26/22 14:15 03/26/22 14:20 Albuterol Sulfate (0.083%) 2.5 Mg/3 Ml Vial.Neb INHALE 03/26/22 14:16 7.5 mg ONCE ONE Administration Albuterol/Ipratropium 3 ml 03/26/22 14:15 03/26/22 14:20 Albuterol/Iprat 2.5/0.5mg 3 Ml Ampul.Neb INHALE 03/26/22 14:16 3 ml ONCE ONE Administration Etomidate 20 mg 03/26/22 17:57 03/26/22 18:21 Etomidate 20 Mg/10 Ml Vial IVPUSH 03/26/22 17:58 20 mg NOW STA Administration Sodium Chloride 2,000 mls @ 999 mls/hr 03/26/22 13:13 03/26/22 16:29 Ns IVCONT 03/26/22 15:13 Infused .Q2H1M ONE Infusion Magnesium Sulfate 2 gm in 50 mls @ 25 mls/hr 03/26/22 13:13 03/26/22 16:29 Magnesium Sulfate/H2o IV 03/26/22 15:12 Infused ONCE ONE Infusion Ceftriaxone Sodium 1 gm/ 50 mls @ 100 mls/hr 03/26/22 13:25 03/26/22 15:02 Sodium Chloride IV 03/26/22 13:54 Infused ONCE ONE Infusion Azithromycin 500 mg/ Sodium 250 mls @ 125 mls/hr 03/26/22 13:25 03/26/22 15:02 Chloride IV 03/26/22 15:24 125 mls/hr ONCE ONE Administration Levofloxacin 500 mg in 100 mls @ 100 mls/hr 03/26/22 17:56 03/26/22 18:47 Levaquin IV 03/26/22 18:55 100 mls/hr ONCE ONE Administration Iohexol 100 ml 03/26/22 17:24 03/26/22 17:24 Iohexol 350 Mg/Ml 100 Ml Infus..Btl IV 03/26/22 17:25 65 ml ONCE ONE Administration Lorazepam 2 mg 03/26/22 16:24 03/26/22 16:29 Lorazepam 2 Mg/Ml Vial IVPUSH 03/26/22 16:25 2 mg ONCE ONE Administration Lorazepam 2 mg 03/26/22 16:55 03/26/22 18:22 Lorazepam 2 Mg/Ml Vial IVPUSH 03/26/22 16:56 2 mg ONCE ONE Administration Methylprednisolone Sodium Succinate 125 mg 03/26/22 13:13 03/26/22 13:50 Methylprednisolone Sod Succ 125 Mg/2 Ml Vial IVPUSH 03/26/22 13:14 125 mg ONCE ONE Administration Rocuronium Remus 50 mg 03/26/22 17:57 03/26/22 18:21 Rocuronium Remus 50 Mg/5 Ml Vial IVPUSH 03/26/22 17:58 50 mg ONCE ONE Administration Medical Decision Making Lab Data 03/26/22 13:24 03/26/22 13:25 Labs: Lab Results 03/26/22 03/26/22 03/26/22 Range/Units 13:21 13:22 13:24 WBC 14.1 H (4.8-10.8) X10*3/uL RBC 4.90 (4.20-5.50) X10*6/uL Hgb 14.8 (12.0-16.0) g/dl Hct 44.1 (37.0-47.0) % MCV 90.0 (80.0-98.0) fL MCH 30.2 (27.0-33.0) pg MCHC 33.6 (31.0-35.0) g/dl RDW 11.9 (11.0-16.0) % Plt Count 294 D (160-400) X10*3/uL MPV 9.9 (9.4-12.3) fL Immature Gran % (Auto) 1.3 H (0.0-0.4) % Neut % (Auto) 84.5 H (45-73) % Lymph % (Auto) 6.9 L (20-40) % [place] % (Auto) 6.7 (2-11) % Eos % (Auto) 0.2 (0-4) % Baso % (Auto) 0.4 (0-2) % Lymph # (Auto) 1.0 L (1.2-4.9) X10*3/uL [place] # (Auto) 1.0 (0.1-1.2) X10*3/uL Eos # (Auto) 0.0 (0.0-0.4) X10*3/uL Baso # (Auto) 0.1 (0.0-0.2) X10*3/uL Abs Immat Gran (auto) 0.19 H (0.00-0.03) X10*3/uL Absolute Neuts (auto) 11.9 H (2.0-8.3) x10*3/uL Absolute Nucleated RBC 0.000 (0.0-0.012) X10*3/uL Nucleated RBC % (auto) 0.0 (0.0-0.2) /100WBC PT (10.0-13.1) SEC INR (0.9-1.1) APTT (26.0-36.4) SEC D-Dimer High Sensitivty NG/ML VBG pH (7.32-7.43) VBG pCO2 mmHg VBG pO2 mmHg VBG HCO3 (22-26) mmol/L VBG O2 Saturation % VBG Base Excess mmol/L Sodium (135-145) mmol/L Potassium (3.3-5.1) mmol/L Chloride (96-108) mmol/L Carbon Dioxide (22-29) mmol/L Anion Gap (12-20) BUN (9-16) mg/dL Creatinine (0.5-1.4) mg/dL Estim Creat Clear Calc Estimated GFR Random Glucose (60-115) mg/dL Lactic Acid (0.5-2.0) mmol/L Calcium (8.4-10.2) mg/dL Magnesium (1.6-2.6) mg/dL Total Bilirubin (0.0-1.0) mg/dL Direct Bilirubin (0.0-0.5) mg/dL AST (5-31) U/L ALT (0-31) U/L Alkaline Phosphatase (39-117) U/L Troponin I High Sens (<3.5-17.0) ng/L B-Natriuretic Peptide (<100) pg/mL Total Protein (6.5-8.0) g/dL Albumin (3.5-5.0) g/dL Ethyl Alcohol mg/dL COVID-19 ([facility]) Negative (Negative) COVID-19 Clin Com See Note Influenza Type A (SEAN) Negative (Negative) Influenza Type B (SEAN) Negative (Negative) Influenza A & B Note See Note 02/13/23 02/13/23 02/13/23 Range/Units 13:24 13:25 13:25 WBC (4.8-10.8) X10*3/uL RBC (4.20-5.50) X10*6/uL Hgb (12.0-16.0) g/dl Hct (37.0-47.0) % MCV (80.0-98.0) fL MCH (27.0-33.0) pg MCHC (31.0-35.0) g/dl RDW (11.0-16.0) % Plt Count (160-400) X10*3/uL MPV (9.4-12.3) fL Immature Gran % (Auto) (0.0-0.4) % Neut % (Auto) (45-73) % Lymph % (Auto) (20-40) % [place] % (Auto) (2-11) % Eos % (Auto) (0-4) % Baso % (Auto) (0-2) % Lymph # (Auto) (1.2-4.9) X10*3/uL [place] # (Auto) (0.1-1.2) X10*3/uL Eos # (Auto) (0.0-0.4) X10*3/uL Baso # (Auto) (0.0-0.2) X10*3/uL Abs Immat Gran (auto) (0.00-0.03) X10*3/uL Absolute Neuts (auto) (2.0-8.3) x10*3/uL Absolute Nucleated RBC (0.0-0.012) X10*3/uL Nucleated RBC % (auto) (0.0-0.2) /100WBC PT 14.7 H (10.0-13.1) SEC INR 1.3 H (0.9-1.1) APTT 27.4 (26.0-36.4) SEC D-Dimer High Sensitivty 1182 NG/ML VBG pH (7.32-7.43) VBG pCO2 mmHg VBG pO2 mmHg VBG HCO3 (22-26) mmol/L VBG O2 Saturation % VBG Base Excess mmol/L Sodium 141 (135-145) mmol/L Potassium 3.8 (3.3-5.1) mmol/L Chloride 97 (96-108) mmol/L Carbon Dioxide 29 (22-29) mmol/L Anion Gap 19 (12-20) BUN 14 (9-16) mg/dL Creatinine 0.66 (0.5-1.4) mg/dL Estim Creat Clear Calc 98.9 Estimated GFR > 60 Random Glucose 154 H (60-115) mg/dL Lactic Acid (0.5-2.0) mmol/L Calcium 9.1 (8.4-10.2) mg/dL Magnesium 1.9 (1.6-2.6) mg/dL Total Bilirubin 1.7 H (0.0-1.0) mg/dL Direct Bilirubin 0.8 H (0.0-0.5) mg/dL AST 16 (5-31) U/L ALT 15 (0-31) U/L Alkaline Phosphatase 93 (39-117) U/L Troponin I High Sens (<3.5-17.0) ng/L B-Natriuretic Peptide 56 (<100) pg/mL Total Protein 5.9 L (6.5-8.0) g/dL Albumin 3.3 L (3.5-5.0) g/dL Ethyl Alcohol mg/dL COVID-19 ([facility]) (Negative) COVID-19 Clin Com Influenza Type A (SEAN) (Negative) Influenza Type B (SEAN) (Negative) Influenza A & B Note 03/26/22 03/26/22 03/26/22 Range/Units 13:25 13:25 13:26 WBC (4.8-10.8) X10*3/uL RBC (4.20-5.50) X10*6/uL Hgb (12.0-16.0) g/dl Hct (37.0-47.0) % MCV (80.0-98.0) fL MCH (27.0-33.0) pg MCHC (31.0-35.0) g/dl RDW (11.0-16.0) % Plt Count (160-400) X10*3/uL MPV (9.4-12.3) fL Immature Gran % (Auto) (0.0-0.4) % Neut % (Auto) (45-73) % Lymph % (Auto) (20-40) % [place] % (Auto) (2-11) % Eos % (Auto) (0-4) % Baso % (Auto) (0-2) % Lymph # (Auto) (1.2-4.9) X10*3/uL [place] # (Auto) (0.1-1.2) X10*3/uL Eos # (Auto) (0.0-0.4) X10*3/uL Baso # (Auto) (0.0-0.2) X10*3/uL Abs Immat Gran (auto) (0.00-0.03) X10*3/uL Absolute Neuts (auto) (2.0-8.3) x10*3/uL Absolute Nucleated RBC (0.0-0.012) X10*3/uL Nucleated RBC % (auto) (0.0-0.2) /100WBC PT (10.0-13.1) SEC INR (0.9-1.1) APTT (26.0-36.4) SEC D-Dimer High Sensitivty NG/ML VBG pH (7.32-7.43) VBG pCO2 mmHg VBG pO2 mmHg VBG HCO3 (22-26) mmol/L VBG O2 Saturation % VBG Base Excess mmol/L Sodium (135-145) mmol/L Potassium (3.3-5.1) mmol/L Chloride (96-108) mmol/L Carbon Dioxide (22-29) mmol/L Anion Gap (12-20) BUN (9-16) mg/dL Creatinine (0.5-1.4) mg/dL Estim Creat Clear Calc Estimated GFR Random Glucose (60-115) mg/dL Lactic Acid 1.4 (0.5-2.0) mmol/L Calcium (8.4-10.2) mg/dL Magnesium (1.6-2.6) mg/dL Total Bilirubin (0.0-1.0) mg/dL Direct Bilirubin (0.0-0.5) mg/dL AST (5-31) U/L ALT (0-31) U/L Alkaline Phosphatase (39-117) U/L Troponin I High Sens 12.7 (<3.5-17.0) ng/L B-Natriuretic Peptide (<100) pg/mL Total Protein (6.5-8.0) g/dL Albumin (3.5-5.0) g/dL Ethyl Alcohol < 10 mg/dL COVID-19 ([facility]) (Negative) COVID-19 Clin Com Influenza Type A (SEAN) (Negative) Influenza Type B (SEAN) (Negative) Influenza A & B Note 03/26/22 Range/Units 13:29 WBC (4.8-10.8) X10*3/uL RBC (4.20-5.50) X10*6/uL Hgb (12.0-16.0) g/dl Hct (37.0-47.0) % MCV (80.0-98.0) fL MCH (27.0-33.0) pg MCHC (31.0-35.0) g/dl RDW (11.0-16.0) % Plt Count (160-400) X10*3/uL MPV (9.4-12.3) fL Immature Gran % (Auto) (0.0-0.4) % Neut % (Auto) (45-73) % Lymph % (Auto) (20-40) % [place] % (Auto) (2-11) % Eos % (Auto) (0-4) % Baso % (Auto) (0-2) % Lymph # (Auto) (1.2-4.9) X10*3/uL [place] # (Auto) (0.1-1.2) X10*3/uL Eos # (Auto) (0.0-0.4) X10*3/uL Baso # (Auto) (0.0-0.2) X10*3/uL Abs Immat Gran (auto) (0.00-0.03) X10*3/uL Absolute Neuts (auto) (2.0-8.3) x10*3/uL Absolute Nucleated RBC (0.0-0.012) X10*3/uL Nucleated RBC % (auto) (0.0-0.2) /100WBC PT (10.0-13.1) SEC INR (0.9-1.1) APTT (26.0-36.4) SEC D-Dimer High Sensitivty NG/ML VBG pH 7.39 (7.32-7.43) VBG pCO2 60 mmHg VBG pO2 62 mmHg VBG HCO3 36 H (22-26) mmol/L VBG O2 Saturation 88.0 % VBG Base Excess 9.0 mmol/L Sodium (135-145) mmol/L Potassium (3.3-5.1) mmol/L Chloride (96-108) mmol/L Carbon Dioxide (22-29) mmol/L Anion Gap (12-20) BUN (9-16) mg/dL Creatinine (0.5-1.4) mg/dL Estim Creat Clear Calc Estimated GFR Random Glucose (60-115) mg/dL Lactic Acid (0.5-2.0) mmol/L Calcium (8.4-10.2) mg/dL Magnesium (1.6-2.6) mg/dL Total Bilirubin (0.0-1.0) mg/dL Direct Bilirubin (0.0-0.5) mg/dL AST (5-31) U/L ALT (0-31) U/L Alkaline Phosphatase (39-117) U/L Troponin I High Sens (<3.5-17.0) ng/L B-Natriuretic Peptide (<100) pg/mL Total Protein (6.5-8.0) g/dL Albumin (3.5-5.0) g/dL Ethyl Alcohol mg/dL COVID-19 ([facility]) (Negative) COVID-19 Clin Com Influenza Type A (SEAN) (Negative) Influenza Type B (SEAN) (Negative) Influenza A & B Note Procedures Intubation Time out performed: Yes sedative: Etomidate Mg Given: 20 paralytic: Rocuronium Mg Given: 50 Laryngoscope: other (GlideScope) ET Tube Size: 7.5 ET Tube Uncuffed: No Tube Secured Depth (cm): 23 Tube Secured Location: lips Tube Placement Confirmation: visualized tube passing through cords, equal breath sounds bilaterally, no breath sounds over epigastrium and confirmation by capnometry Patient Tolerated Procedure: well Intubation Complications: none Critical Care Time Critical Care Time Critical Care Time: Yes Total Critical Care Time: 90 Attestation: I have personally provided critical care time. Time includes review of lab data, radiology results, discussion with consultants, and monitoring for potential decompensation. Intervention performed as documented. Discharge Plan Discharge Clinical Impression: Respiratory failure, Chronic obstructive pulmonary disease Patient Disposition: Admitted As Inpatient
--- NOTE | 2022-03-26 13:20 | PC.NURSE ---
Coming from home where pt was found to by hypoxic in the 50's on baseline 2L. Respiratory at bedside to place pt on cpap, IV established. Son states pt has been sick at home and not getting out of bed or eating much at home.
[2022-03-26 13:32] LABS: MANUAL DIFF FLAG NO
[2022-03-26] MEDS: Albuterol Sulfate (0.083%) 2.5 MG/3 ML VIAL.NEB 10 MG INHALE (13:33)
[2022-03-26 13:34] LABS: Basophils Absolute Auto 0.1 X10*3/uL (0.0-0.2); Basophils Percent Auto 0.4 % (0-2); Eosinophils Percent Auto 0.2 % (0-4); Hematocrit 44.1 % (37.0-47.0); Hemoglobin 14.8 g/dl (12.0-16.0); Imm Gran Abs Auto 0.19 X10*3/uL (0.00-0.03); Imm Gran Pct Auto 1.3 % (0.0-0.4); Lymphocytes Percent Auto 6.9 % (20-40); Mean Corpuscular HGB Conc 33.6 g/dl (31.0-35.0); Mean Corpuscular Hemoglobin 30.2 pg (27.0-33.0); Mean Platelet Volume 9.9 fL (9.4-12.3); Monocytes Percent Auto 6.7 % (2-11); Neutrophils Absolute Auto 11.9 x10*3/uL (2.0-8.3); Neutrophils Percent Auto 84.5 % (45-73); Platelet Count 294 X10*3/uL (160-400); Red Cell Distribution Width 11.9 % (11.0-16.0); White Blood Count 14.1 X10*3/uL (4.8-10.8)
[2022-03-26 13:38] LABS: VBG HCO3 36 mmol/L (22-26); VBG pCO2 60 mmHg; VBG pH 7.39 (7.32-7.43); VBG pO2 62 mmHg
[2022-03-26 13:39] LABS: INTERNATIONAL NORM RATIO 1.3 (0.9-1.1); Prothrombin Time 14.7 SEC (10.0-13.1)
[2022-03-26 13:40] LABS: Venous Blood Gas Refer to POC result
[2022-03-26] MEDS: Magnesium Sulfate/H2O 2 GM/50 ML PIGGYBACK IV (13:50)
[2022-03-26] MEDS: 0.9 % Sodium Chloride 2,000 ML 999 ML IVCONT (13:50)
[2022-03-26] MEDS: methylPREDNISolone Sod Succ 125 MG/2 ML VIAL IVPUSH (13:50)
[2022-03-26 13:54] LABS: IDNOW Serial# 9DB6401D; Influenza A Negative (Negative); Influenza B2 Negative (Negative)
[2022-03-26 13:57] LABS: COVID-19 Test Negative (Negative); IDNOW Serial# BCCEAD1C
[2022-03-26 14:00] LABS: Lactic Acid 1.4 mmol/L (0.5-2.0)
[2022-03-26 14:04] LABS: Alanine Aminotransferase 15 U/L (0-31); Albumin Level 3.3 g/dL (3.5-5.0); Alkaline Phosphatase 93 U/L (39-117); Anion Gap 19 (12-20); Aspartate Amino Transferase 16 U/L (5-31); Bilirubin Direct 0.8 mg/dL (0.0-0.5); Bilirubin Total 1.7 mg/dL (0.0-1.0); Blood Urea Nitrogen 14 mg/dL (9-16); Calcium 9.1 mg/dL (8.4-10.2); Carbon Dioxide 29 mmol/L (22-29); Chloride 97 mmol/L (96-108); Creatinine Clr Calc Pharmacy 98.9; Estimated Glomerular Filt Rate > 60; Ethanol < 10 mg/dL; Glucose Random 154 mg/dL (60-115); Magnesium 1.9 mg/dL (1.6-2.6); Potassium 3.8 mmol/L (3.3-5.1); Sodium 141 mmol/L (135-145); Total Protein 5.9 g/dL (6.5-8.0)
[2022-03-26 14:10] LABS: B Type Natriuretic Peptide 56 pg/mL (<100)
[2022-03-26 14:10] LABS: Troponin-I High Sensitivity 12.7 ng/L (<3.5-17.0)
[2022-03-26] MEDS: cefTRIAXone sodium 1 GM in 0.9 % Sodium Chloride 50 ML IV (14:16)
[2022-03-26] MEDS: Albuterol/Iprat 2.5/0.5MG 3 ML AMPUL.NEB INHALE ×2 (14:20→19:23)
[2022-03-26] MEDS: Albuterol Sulfate (0.083%) 2.5 MG/3 ML VIAL.NEB 7.5 MG INHALE (14:20)
--- NOTE | 2022-03-26 14:55 | PHA.MEDREC ---
Pharmacy Consult ? Medication Reconciliation Pharmacy has completed the medication reconciliation. Patient had list at bedside
[2022-03-26] MEDS: Azithromycin 500 MG in 0.9 % Sodium Chloride 250 ML 125 MG IV (15:02)
[2022-03-26 15:06] LABS: D Dimer High Sensitivity 1182 NG/ML
--- NOTE | 2022-03-26 15:09 | PC.NURSE ---
Second liter and antibiotic hung. Pt resting at this time stating she is starting to feel some improvement with her breathing.
--- NOTE | 2022-03-26 15:30 | PC.NURSE ---
Pt taken to CT with respiratory, tolerated exam poorly. 2mg IV ativan given at this time.
[2022-03-26] MEDS: LORazepam 2 MG/ML VIAL IVPUSH ×2 (16:29→18:22)
[2022-03-26 17:08] LABS: Partial Thromboplastin Time 27.4 SEC (26.0-36.4)
[2022-03-26] MEDS: iohexoL 350 MG/ML 100 ML INFUS..BTL IV (17:24)
--- NOTE | 2022-03-26 17:52 | PM.CCHP ---
History of Present Illness Date of Service: 03/26/22 Attending physician on admission: Beni Carrillo Chief Complaint: shortness of breath 62-year-old female with underlying COPD presents with increasing shortness of breath and by the initial blood gas and acute on chronic hypercarbic and hypoxic issue with what looks like right lower lobe infiltrate and possible small co associated pleural effusion but the CT scan which had a lot of movement artifact shows multilobar mostly right-sided infiltrate appears predominantly interstitial and negative for influenza and COVID thus far but over the 2 hours that she has been on the BiPAP a clearly becoming increasingly lethargic confused work of breathing and no better respiratory rate is in the 40s accessory muscle and diaphragmatic effort is extreme and with lost mental status this is a strong presumption that the pCO2 is more elevated she required acute intubation at that point which was done with etomidate and rocuronium without complication easy visualization of the vocal cords and a sputum specimen is being sent and she will be covered for severe community-acquired multilobar pneumonia Review of Systems Review of Systems: and no chest pain no palpitations and they did not voice anything about her fever shaking chills productive cough certainly no hemoptysis Yes all other systems are reviewed and are negative COUNT INCLUDES THE [facility] Past Medical History Medical History (Updated 03/27/22 @ 14:49 by Beni Carrillo MD) Breast CA COPD (chronic obstructive pulmonary disease) Hypertension Surgical History Surgical History H/O lumpectomy Social History Social History Household Members: None Housing: House Do you presently have visiting nurse or other home services: No Unable to assess alcohol history related to: Unable to respond Patient Tobacco Use Status: Former Tobacco user Smoked in Last 30 Days: No Currently Displaying Signs/Symptoms of Drug Intoxication Withdrawal: No Advance Directives: Yes Advance Directives Information Provided: No Advance Directives on File: No Advance Directives Date on File: 03/26/22 Patient : No service: No Current occupational status: disabled Meds Allergies Allergy/AdvReac Type Severity Reaction Status Date / Time Sulfa (Sulfonamide Allergy Mild RASH Verified 02/05/20 18:39 Antibiotics) codeine [Codeine] AdvReac Mild NEAR Verified 02/05/20 18:39 SYNCOPE epoprostenol [From Flolan] AdvReac Mild NAUSEA & Verified 02/05/20 18:39 VOMITING Codeine Sulfate Allergy Unknown fainted Uncoded 02/05/20 18:39 Active Medications: Current Medications Sodium Chloride (Ns) 1,000 mls @ 100 mls/hr IVCONT .Q10H ONE Stop: 03/27/22 02:51 Pharmacy Consult (Consult Rx Perform Med Rec) 1 each MISCELLANE ONCE PRN PRN Reason: Consult order Home Medications Medication Instructions Recorded Confirmed Last Taken Type albuterol sulfate 90 mcg/actuation 2 puff inhalation QID PRN wheezing 02/05/20 03/26/22 02/05/20 History aerosol inhaler anastrozole 1 mg tablet 1 tab PO DAILY 02/05/20 03/26/22 02/03/20 History lisinopril 10 mg tablet 1 tab PO DAILY 02/05/20 03/26/22 02/03/20 08:00 History montelukast 10 mg tablet 1 tab PO BEDTIME 02/05/20 03/26/22 02/03/20 21:00 History omeprazole 20 mg capsule,delayed 1 cap PO BID 02/05/20 03/26/22 02/03/20 21:00 History release sertraline 100 mg tablet 1.5 tab PO DAILY 02/05/20 03/26/22 Unknown History hydroxyzine pamoate 25 mg capsule 1 cap PO BID PRN Anxiety 03/26/22 03/26/22 Unknown History multivitamin 1 tab PO DAILY 03/26/22 03/26/22 Unknown History trazodone 50 mg tablet 1 tab PO BEDTIME 03/26/22 03/26/22 Unknown History Physical Exam Vital Signs: Vital Signs: Last Vital Signs Temp 100.4 F 03/26/22 14:49 Pulse 109 H 03/26/22 16:30 Resp 28 H 03/26/22 16:30 BP 149/55 H 03/26/22 16:30 Pulse Ox 93 03/26/22 16:30 O2 Del Method 03/26/22 16:30 BMI result Body Mass Index 35.9 vital signs stable and patient initially had cognitive function which then rapidly became impaired on BiPAP but remained nonfocal neurologically bedside echo demonstrating normal LV and RV function no primary valve or pericardial disease bilateral wheezing otherwise diminished bilateral breath sounds but significant use of accessory muscles in diaphragmatic effort for X durati on abdomen soft no organomegaly Results Labs 03/26/22 13:24 03/26/22 13:25 Labs: Laboratory Results - last 24 hr 03/26/22 03/26/22 03/26/22 13:21 13:22 13:24 MCV 90.0 MCH 30.2 MCHC 33.6 RDW 11.9 Plt Count 294 D MPV 9.9 Immature Gran % (Auto) 1.3 H Neut % (Auto) 84.5 H Lymph % (Auto) 6.9 L [place] % (Auto) 6.7 Eos % (Auto) 0.2 Baso % (Auto) 0.4 Lymph # (Auto) 1.0 L [place] # (Auto) 1.0 Eos # (Auto) 0.0 Baso # (Auto) 0.1 Abs Immat Gran (auto) 0.19 H Absolute Neuts (auto) 11.9 H Absolute Nucleated RBC 0.000 Nucleated RBC % (auto) 0.0 PT INR APTT D-Dimer High Sensitivty VBG pH VBG pCO2 VBG pO2 VBG HCO3 VBG O2 Saturation VBG Base Excess Anion Gap Estim Creat Clear Calc Estimated GFR Random Glucose Lactic Acid Calcium Magnesium Total Bilirubin Direct Bilirubin AST ALT Alkaline Phosphatase Troponin I High Sens B-Natriuretic Peptide Total Protein Albumin Ethyl Alcohol COVID-19 (HOMERO) Negative COVID-19 Clin Com See Note Influenza Type A (SEAN) Negative Influenza Type B (SEAN) Negative Influenza A & B Note See Note 03/26/22 03/26/22 03/26/22 13:24 13:25 13:25 MCV MCH MCHC RDW Plt Count MPV Immature Gran % (Auto) Neut % (Auto) Lymph % (Auto) [place] % (Auto) Eos % (Auto) Baso % (Auto) Lymph # (Auto) [place] # (Auto) Eos # (Auto) Baso # (Auto) Abs Immat Gran (auto) Absolute Neuts (auto) Absolute Nucleated RBC Nucleated RBC % (auto) PT 14.7 H INR 1.3 H APTT 27.4 D-Dimer High Sensitivty 1182 VBG pH VBG pCO2 VBG pO2 VBG HCO3 VBG O2 Saturation VBG Base Excess Anion Gap 19 Estim Creat Clear Calc 98.9 Estimated GFR > 60 Random Glucose 154 H Lactic Acid Calcium 9.1 Magnesium 1.9 Total Bilirubin 1.7 H Direct Bilirubin 0.8 H AST 16 ALT 15 Alkaline Phosphatase 93 Troponin I High Sens B-Natriuretic Peptide 56 Total Protein 5.9 L Albumin 3.3 L Ethyl Alcohol COVID-19 (HOMERO) COVID-19 Clin Com Influenza Type A (SEAN) Influenza Type B (SEAN) Influenza A & B Note 03/26/22 03/26/22 03/26/22 13:25 13:25 13:26 MCV MCH MCHC RDW Plt Count MPV Immature Gran % (Auto) Neut % (Auto) Lymph % (Auto) [place] % (Auto) Eos % (Auto) Baso % (Auto) Lymph # (Auto) [place] # (Auto) Eos # (Auto) Baso # (Auto) Abs Immat Gran (auto) Absolute Neuts (auto) Absolute Nucleated RBC Nucleated RBC % (auto) PT INR APTT D-Dimer High Sensitivty VBG pH VBG pCO2 VBG pO2 VBG HCO3 VBG O2 Saturation VBG Base Excess Anion Gap Estim Creat Clear Calc Estimated GFR Random Glucose Lactic Acid 1.4 Calcium Magnesium Total Bilirubin Direct Bilirubin AST ALT Alkaline Phosphatase Troponin I High Sens 12.7 B-Natriuretic Peptide Total Protein Albumin Ethyl Alcohol < 10 COVID-19 (HOMERO) COVID-19 Clin Com Influenza Type A (SEAN) Influenza Type B (SEAN) Influenza A & B Note 03/26/22 13:29 MCV MCH MCHC RDW Plt Count MPV Immature Gran % (Auto) Neut % (Auto) Lymph % (Auto) [place] % (Auto) Eos % (Auto) Baso % (Auto) Lymph # (Auto) [place] # (Auto) Eos # (Auto) Baso # (Auto) Abs Immat Gran (auto) Absolute Neuts (auto) Absolute Nucleated RBC Nucleated RBC % (auto) PT INR APTT D-Dimer High Sensitivty VBG pH 7.39 VBG pCO2 60 VBG pO2 62 VBG HCO3 36 H VBG O2 Saturation 88.0 VBG Base Excess 9.0 Anion Gap Estim Creat Clear Calc Estimated GFR Random Glucose Lactic Acid Calcium Magnesium Total Bilirubin Direct Bilirubin AST ALT Alkaline Phosphatase Troponin I High Sens B-Natriuretic Peptide Total Protein Albumin Ethyl Alcohol COVID-19 (HOMERO) COVID-19 Clin Com Influenza Type A (SEAN) Influenza Type B (SEAN) Influenza A & B Note Imaging Radiologist's Impressions: Impressions Chest X-Ray 03/26/22 13:40 IMPRESSION: 1. Right IJ catheter tip in the origin of the superior vena cava at the right superior mediastinum. There is no pneumothorax. 2. Coarse reticular markings in the lungs which have increased since prior study 06/14/2021. Assessment and Plan (1) Respiratory failure: Status: Acute (2) Chronic obstructive pulmonary disease: Status: Acute (3) COPD (chronic obstructive pulmonary disease): Status: Acute (4) Pneumonia: Status: Acute (5) Acute on chronic respiratory failure with hypoxia and hypercapnia: Status: Acute (6) Breast CA: Qualifiers: Breast location: unspecified site of breast Estrogen receptor status: unspecified Patient sex: female Laterality: unspecified laterality Qualified Code(s): C50.919 - Malignant neoplasm of unspecified site of unspecified female breast Status: Acute (7) Hypertension: Qualifiers: Hypertension type: essential hypertension Qualified Code(s): I10 - Essential (primary) hypertension Status: Acute (8) COVID-19: Status: Acute Plan so at this point will cover as a severe community-acquired pneumonia and obtain a more extensive respiratory viral pathogen panel and if there is no improvement between that high-dose steroids and bronchodilators we might need to consider lung biopsy given the history of right mastectomy for breast carcinoma in the past but I do not see this being a volume related problem Time Spent With Patient Time: Total time managing care of this patient today 75____ minutes.
[2022-03-26] MEDS: propofoL 1,000 MG/100 ML VIAL 17.12 MG IVCONT (18:01)
[2022-03-26] MEDS: Rocuronium Bromide 50 MG/5 ML VIAL IVPUSH (18:21)
[2022-03-26] MEDS: Etomidate 20 MG/10 ML VIAL IVPUSH (18:21)
[2022-03-26] MEDS: levoFLOXacin/D5W 500 MG/100 ML PIGGYBACK 100 MG IV (18:47)
[2022-03-26 18:55] LABS: Venous Blood Gas Refer to POC result
[2022-03-26 18:57] LABS: VBG Base Excess 4.6 mmol/L; VBG HCO3 33 mmol/L (22-26); VBG pCO2 67 mmHg; VBG pH 7.29 (7.32-7.43); VBG pO2 63 mmHg
--- NOTE | 2022-03-26 19:15 | PC.NURSE ---
Late entry: 1730 pt found to be obtunded, provider at bedside for intubation 1734 Etomidate 20 mg IV push 1735 Bryson 50 mg IV push Pt intubated with 7.5 ET Tube measuring 24 at the lip Propofol running at 30 mcgs/kgs Pt resting comfortably, awaiting transport to ICU Daughter at bedside
[2022-03-26] MEDS: 0.9 % Sodium Chloride 1,000 ML 100 ML IVCONT (21:38)
[2022-03-26] MEDS: methylPREDNISolone Sod Succ 125 MG/2 ML VIAL 60 MG IVPUSH (21:40)
[2022-03-26] MEDS: propofoL 1,000 MG/100 ML VIAL 28.53 MG IVCONT (21:40)
[2022-03-26] MEDS: vancomycin HCL 1,500 MG in 0.9 % Sodium Chloride 500 ML 333.33 MG IV (22:26)
[2022-03-26] MEDS: Norepinephrine Bitartrate/D5W 8 MG/250 ML PLAST..BAG 14.27 MG IV (22:36)
--- NOTE | 2022-03-26 22:58 | P.PCNCC_ITS ---
Procedures Date of Service Date of Service: 03/26/22 Central Line Placement Right IJ: Central Line Comments: Vascular ultrasound was used to examine the right neck. ? A large compressible internal jugular vein was noted, lateral to the carotid artery.?? The right neck was widely prepped and draped in full sterile fashion.? Under US? guidance, the right IJ vein was cannulated on the 1st pass of the 18 g thin wall needle, with return of dark, nonpulsatile blood. ? The wire was threaded without incident.? The 16 cm x 7 [place] triple-lumen CVC was advanced into the vein up to the hub via the Seldinger technique without incident.? There was good blood return x3.? The catheter was sutured x2 and a Biopatch and dry sterile dressing were applied. Postop chest x-ray showed the line in good position.? The patient tolerated the procedure well with no complications. Consent for Procedure: Elective - informed consent obtained (HCP - Britney Lares (daughter)) Time out performed: Yes Sterile Technique Used: Yes Patient placed on monitor/pulse ox: Yes MD prep: mask, gown and gloves Central line prep: Chlorhexidine scrub and sterile drapes applied Ultrasound used for placement: Yes Central line lumen inserted: triple Post procedure: sutured in place, good blood return, all ports aspirated, flushed, capped and sterile dressing applied Post procedure x-ray: tip of catheter in good position and no pneumothorax seen Patient tolerated procedure: well and no complications Complications: none
[2022-03-27] VITALS (39 sets, daily range): BP systolic 92–148; BP diastolic 39–73; PULSE 61–99; RESP 18–25; TEMP -12.7–37.4; O2SAT 93–98; BMI 35.5
[2022-03-27] MEDS: propofoL 1,000 MG/100 ML VIAL 28.53 MG IVCONT ×4 (00:03→08:36)
[2022-03-27 00:21] LABS: VBG Base Excess 4.5 mmol/L; VBG HCO3 31 mmol/L (22-26); VBG pCO2 54 mmHg; VBG pH 7.36 (7.32-7.43); VBG pO2 57 mmHg
[2022-03-27 01:08] LABS: Venous Blood Gas Refer to POC result
[2022-03-27] MEDS: methylPREDNISolone Sod Succ 125 MG/2 ML VIAL 60 MG IVPUSH ×4 (01:17→19:37)
--- NOTE | 2022-03-27 04:07 | PC.NURSE ---
Addendum entered by Mihai Echols RN 03/27/22 05:01: IV'S TO RIGHT HAND AND FOREARM REMOVED AFTER RIGHT IJ TLC PLACEMENT CONFIRMED BY CXR PER ICU MAINTENANCE DEPARTMENT MANAGER Original Note: CARE ASSUMED 23:15..REMAINS TUBED/VENTED/VCV VENT SUPPORT...PROPOFOL 50 MCG/KG/MIN....(+) GAG/COUGH..WEAKLY ROSE BUT NOT TO COMMAND.....LEVOPHED DRI[P PER MAR..TLC PREVIOUSLY INSERTED BU ICU MAINTENANCE DEPARTMENT MANAGER AT HS...CXR DONE AND REVIEWED BY MAINTENANCE DEPARTMENT MANAGER...TLC OK TO UTILIZE PER MAINTENANCE DEPARTMENT MANAGER....NS 0.9% WEANED FROM 100 TO 50 CC/HR PER MAINTENANCE DEPARTMENT MANAGER...URINE OUTPUT 35-50 CC/HR YELLOW URINE...4AM CVP = 10-11......NSR..NO DYSRHYTHMIAS...HEPARIN SC HELD PREVIOUSLY AND AT 3AM PER MAINTENANCE DEPARTMENT MANAGER D/T BLOODY SECRETIONS VIA ETT..TO RE-ASSESS IN AM BY TIMBER FRAMER..SEQUENTIAL COMPRESSION STOCKINGS APPLIED AT HS...NPO/OG-TUBE CLAMPED
[2022-03-27 04:59] LABS: VBG Base Excess 8.4 mmol/L; VBG HCO3 34 mmol/L (22-26); VBG pCO2 55 mmHg; VBG pO2 50 mmHg
[2022-03-27 05:10] LABS: Venous Blood Gas Refer to POC result
[2022-03-27 05:42] LABS: MANUAL DIFF FLAG NO
[2022-03-27 05:48] LABS: Basophils Percent Auto 0.3 % (0-2); Hemoglobin 11.9 g/dl (12.0-16.0); Imm Gran Abs Auto 0.17 X10*3/uL (0.00-0.03); Imm Gran Pct Auto 1.8 % (0.0-0.4); Lymphocytes Absolute Auto 0.6 X10*3/uL (1.2-4.9); Lymphocytes Percent Auto 6.8 % (20-40); Mean Corpuscular HGB Conc 33.1 g/dl (31.0-35.0); Mean Corpuscular Hemoglobin 30.2 pg (27.0-33.0); Mean Corpuscular Volume 91.4 fL (80.0-98.0); Mean Platelet Volume 10.4 fL (9.4-12.3); Monocytes Absolute Auto 0.4 X10*3/uL (0.1-1.2); Monocytes Percent Auto 3.8 % (2-11); Neutrophils Percent Auto 87.3 % (45-73); Platelet Count 249 X10*3/uL (160-400); Red Blood Count 3.94 X10*6/uL (4.20-5.50); White Blood Count 9.2 X10*3/uL (4.8-10.8)
[2022-03-27 06:01] LABS: Albumin Level 2.7 g/dL (3.5-5.0); Anion Gap 14 (12-20); Blood Urea Nitrogen 15 mg/dL (9-16); Calcium 8.3 mg/dL (8.4-10.2); Carbon Dioxide 28 mmol/L (22-29); Chloride 104 mmol/L (96-108); Creatinine Clr Calc Pharmacy 113.6; Estimated Glomerular Filt Rate > 60; Glucose Random 211 mg/dL (60-115); Magnesium 2.3 mg/dL (1.6-2.6); Phosphorus 2.1 mg/dL (2.7-4.5); Potassium 3.8 mmol/L (3.3-5.1); Sodium 142 mmol/L (135-145)
[2022-03-27] MEDS: Chlorhexidine Gluc Oral Rinse 15 ML MOUTHWASH BUCCAL ×3 (07:58→19:37)
[2022-03-27] MEDS: Albuterol/Iprat 2.5/0.5MG 3 ML AMPUL.NEB INHALE ×4 (08:00→19:49)
[2022-03-27] MEDS: Linezolid/D5W 600 MG/300 ML PIGGYBACK 300 MG IV (08:32)
[2022-03-27] MEDS: 0.9 % Sodium Chloride 1,000 ML 50 ML IVCONT (10:43)
--- NOTE | 2022-03-27 10:44 | MHC.CM.PN ---
IMM DELIVERED PT IS INTUBATED AND DAUGHTER AND SON AT BEDSIDE. PER DAUGHTER NGUYEN, PT LIVES ALONE IN AN APT UNIT. DAUGHTER IS EXECUTIVE VICE PRESIDENT AND CHIEF FINANCIAL OFFICER. PT HAS NEBULIZER AND 02 THROUGH [facility]. NO WALKER OR CANE. HAS GRAB BARS AND TUB BENCH IN SHOWER. +COVID VAX X 3 +HCP ON FILE. 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 DP: REHAB VS HOME WITH [facility], FAMILY WOULD LIKE REHAB BEFORE HOME IF REC. REFERRALS SENT. CM WILL CONTINUE TO FOLLOW.
--- NOTE | 2022-03-27 11:20 | MHC.CLN ---
PT IS INTUBATED AND SEDATED PT RECEIVING GLUCERNA AT MAX GOAL RATE 40ML/HR WITH 120ML FREE WATER FLUSHES Q 4 HRS PROVIDES 960KCALS (1713KCALS WITH SEDATION), 40G PROTEIN, 1299ML TOTAL WATER FROM FORMULA AND FLUSHES (19ML/KG) RECOMMEND ADDING 30ML PROSOURCE TID TO PROVIDE AN ADDITIONAL 180KCALS, 45G PROTEIN MONITOR TOLERANCE, RESIDUALS AND LYTES SEE FULL CLINICAL NUTRITION ASSESSMENT
[2022-03-27] MEDS: Heparin Sodium,Porcine 5,000 UNIT/ML VIAL 5000 UNIT SUBCUT ×2 (11:23→17:47)
[2022-03-27 11:52] LABS: Adenovirus PCR Not Detected (Not Detect.); Bordetella parapertussis PCR Not Detected (Not Detect.); Bordetella pertussis PCR Not Detected (Not Detect.); Chlamydia pneumoniae PCR Not Detected (Not Detect.); Coronavirus 229E PCR Not Detected (Not Detect.); Coronavirus HKU1 PCR Not Detected (Not Detect.); Coronavirus NL63 PCR Not Detected (Not Detect.); Coronavirus OC43 PCR Not Detected (Not Detect.); Human metapneumovirus PCR Not Detected (Not Detect.); Influenza A PCR Not Detected (Not Detect.); Influenza B PCR Not Detected (Not Detect.); SARS-CoV-2 PCR Not Detected (Not Detect.)
[2022-03-27 11:53] LABS: Mycoplasma pneumoniae PCR Not Detected (Not Detect.); Parainfluenza 1 PCR Not Detected (Not Detect.); Parainfluenza 2 PCR Not Detected (Not Detect.); Parainfluenza 3 PCR Not Detected (Not Detect.); Parainfluenza 4 PCR Not Detected (Not Detect.); RSV PCR Not Detected (Not Detect.); Rhino/Enterovirus PCR Not Detected (Not Detect.)
[2022-03-27] MEDS: propofoL 1,000 MG/100 ML VIAL 22.82 MG IVCONT ×3 (12:34→19:38)
[2022-03-27 12:53] LABS: Venous Blood Gas Refer to POC result
[2022-03-27 12:53] LABS: VBG Base Excess 7.2 mmol/L; VBG HCO3 33 mmol/L (22-26); VBG pCO2 54 mmHg; VBG pH 7.39 (7.32-7.43); VBG pO2 72 mmHg
--- NOTE | 2022-03-27 14:51 | P.PNCC_ITS ---
Subjective Subjective Date of Service: 03/27/22 Interval History: 62-year-old moderately obese female with longstanding COPD and chronic hypercarbic and hypoxic respiratory failure who is oxygen-dependent does have a background history of COVID-19 infection in the past presents with acute on chronic hypercarbic respiratory failure and while on BiPAP and aggressive high- dose bronchodilator treatment and IV steroids mental status deteriorated respiratory effort increased and the pCO2 increased as well so clearly she was failing and explain to her son the need to intubate which we did without complication very very easy and sputum was sent for Gram stain and culture patient was empirically given Zithromax and ceftriaxone to which I added 1 dose of Levaquin 1 dose of vancomycin my bedside echo showed normal LV and RV function and normal inferior vena caval size and inspiratory response so I did not see this being a volume overload or primary left heart failure Critical Care Time (minutes): 45 Physical Exam Vital Signs: Vital Signs: Last Vital Signs Temp 98.6 F 03/27/22 14:00 Pulse 83 03/27/22 14:00 Resp 24 H 03/27/22 14:00 BP 116/49 L 03/27/22 14:00 Pulse Ox 94 03/27/22 14:00 O2 Del Method 03/27/22 14:00 FiO2 40 03/27/22 14:00 BMI result Body Mass Index 35.5 she definitely looks better now with FiO2 having been weaned and respiratory effort is much much diminished we kept her on on low volumes to alleviate the issue with air trapping and although her end-tidal CO2 pattern still consistent with with bronchospasm she is able to 0 her flow at end expiration no evidence of auto PEEP benign abdomen now tolerating feedings week because NG output volume was minimal and bedside echo again demonstrating preserved LV function Objective Data Labs 03/27/22 04:55 03/27/22 04:55 Labs: Laboratory Results - last 24 hr 03/26/22 03/26/22 03/26/22 13:25 18:50 23:45 WBC RBC Hgb Hct MCV MCH MCHC RDW Plt Count MPV Immature Gran % (Auto) Neut % (Auto) Lymph % (Auto) [place] % (Auto) Eos % (Auto) Baso % (Auto) Lymph # (Auto) [place] # (Auto) Eos # (Auto) Baso # (Auto) Abs Immat Gran (auto) Absolute Neuts (auto) Absolute Nucleated RBC Nucleated RBC % (auto) APTT 27.4 D-Dimer High Sensitivty 1182 VBG pH 7.29 L VBG pCO2 67 VBG pO2 63 VBG HCO3 33 H VBG O2 Saturation 89.0 VBG Base Excess 4.6 Sodium Potassium Chloride Carbon Dioxide Anion Gap BUN Creatinine Estim Creat Clear Calc Estimated GFR Random Glucose Calcium Phosphorus Magnesium Albumin Respiratory Panel [place] See Note Adenovirus (Rapid PCR) Not Detected B.pert (TEM-PCR) Not Detected B.parapertussis DNA PCR Not Detected C. pneumoniae DNA (PCR) Not Detected Coronavirus OC43 (PCR) Not Detected Coronavirus HKU1 (PCR) Not Detected Coronavirus 229E (PCR) Not Detected Coronavirus NL63 (PCR) Not Detected Human Metapneumovir PCR Not Detected Influenza A (RT-PCR) Not Detected Influenza B (RT-PCR) Not Detected M. pneumoniae (PCR) Not Detected Parainfluenza 1 (PCR) Not Detected Parainfluenza 2 (PCR) Not Detected Parainfluenza 3 (PCR) Not Detected Parainfluenza 4 (PCR) Not Detected RSV (PCR) Not Detected Entero/Rhino (PCR) Not Detected SARS-CoV-2 RNA (RT-PCR) Not Detected 03/27/22 03/27/22 03/27/22 00:14 04:51 04:55 WBC 9.2 RBC 3.94 L Hgb 11.9 L Hct 36.0 L MCV 91.4 MCH 30.2 MCHC 33.1 RDW 12.0 Plt Count 249 MPV 10.4 Immature Gran % (Auto) 1.8 H Neut % (Auto) 87.3 H Lymph % (Auto) 6.8 L [place] % (Auto) 3.8 Eos % (Auto) 0.0 Baso % (Auto) 0.3 Lymph # (Auto) 0.6 L [place] # (Auto) 0.4 Eos # (Auto) 0.0 Baso # (Auto) 0.0 Abs Immat Gran (auto) 0.17 H Absolute Neuts (auto) 8.0 Absolute Nucleated RBC 0.000 Nucleated RBC % (auto) 0.0 APTT D-Dimer High Sensitivty VBG pH 7.36 7.40 VBG pCO2 54 55 VBG pO2 57 50 VBG HCO3 31 H 34 H VBG O2 Saturation 88.0 82.0 VBG Base Excess 4.5 8.4 Sodium Potassium Chloride Carbon Dioxide Anion Gap BUN Creatinine Estim Creat Clear Calc Estimated GFR Random Glucose Calcium Phosphorus Magnesium Albumin Respiratory Panel [place] Adenovirus (Rapid PCR) B.pert (TEM-PCR) B.parapertussis DNA PCR C. pneumoniae DNA (PCR) Coronavirus OC43 (PCR) Coronavirus HKU1 (PCR) Coronavirus 229E (PCR) Coronavirus NL63 (PCR) Human Metapneumovir PCR Influenza A (RT-PCR) Influenza B (RT-PCR) M. pneumoniae (PCR) Parainfluenza 1 (PCR) Parainfluenza 2 (PCR) Parainfluenza 3 (PCR) Parainfluenza 4 (PCR) RSV (PCR) Entero/Rhino (PCR) SARS-CoV-2 RNA (RT-PCR) 03/27/22 03/27/22 04:55 12:47 WBC RBC Hgb Hct MCV MCH MCHC RDW Plt Count MPV Immature Gran % (Auto) Neut % (Auto) Lymph % (Auto) [place] % (Auto) Eos % (Auto) Baso % (Auto) Lymph # (Auto) [place] # (Auto) Eos # (Auto) Baso # (Auto) Abs Immat Gran (auto) Absolute Neuts (auto) Absolute Nucleated RBC Nucleated RBC % (auto) APTT D-Dimer High Sensitivty VBG pH 7.39 VBG pCO2 54 VBG pO2 72 VBG HCO3 33 H VBG O2 Saturation 95.0 VBG Base Excess 7.2 Sodium 142 Potassium 3.8 Chloride 104 Carbon Dioxide 28 Anion Gap 14 BUN 15 Creatinine 0.57 Estim Creat Clear Calc 113.6 Estimated GFR > 60 Random Glucose 211 H Calcium 8.3 L D Phosphorus 2.1 L Magnesium 2.3 Albumin 2.7 L Respiratory Panel [place] Adenovirus (Rapid PCR) B.pert (TEM-PCR) B.parapertussis DNA PCR C. pneumoniae DNA (PCR) Coronavirus OC43 (PCR) Coronavirus HKU1 (PCR) Coronavirus 229E (PCR) Coronavirus NL63 (PCR) Human Metapneumovir PCR Influenza A (RT-PCR) Influenza B (RT-PCR) M. pneumoniae (PCR) Parainfluenza 1 (PCR) Parainfluenza 2 (PCR) Parainfluenza 3 (PCR) Parainfluenza 4 (PCR) RSV (PCR) Entero/Rhino (PCR) SARS-CoV-2 RNA (RT-PCR) Microbiology Microbiology Results: Microbiology 03/26/22 17:55 Sputum - Suctioned Gram Stain - Final 03/26/22 17:55 Sputum - Suctioned Sputum Culture - Preliminary Culture in progress. Progress Note: A&P Assessment and plan (1) Acute on chronic respiratory failure with hypoxia and hypercapnia: Status: Acute (2) Respiratory failure: Status: Acute (3) Chronic obstructive pulmonary disease: Status: Acute (4) COPD (chronic obstructive pulmonary disease): Status: Acute (5) Pneumonia: Status: Acute (6) Respiratory failure with hypoxia: Status: Acute (7) Hypertension: Status: Acute (8) Breast CA: Status: Acute (9) COVID-19: Status: Acute (10) Hypoxia: Status: Acute Plan multilobar severe community-acquired pneumonia now growing Gram-positive cocci short chains and pairs most consistent with pneumococcus none and associated acute on chronic hypercarbic and hypoxic respiratory failure being well- supported very well compensated evidenced by stable blood gases stable renal functions normal stable cardiovascular function and I will Pare the antibiotics down to continue a cohen of vancomycin and Zithromax as well as ceftriaxone Quality Stroke Does the patient have a stroke diagnosis?: No VTE Prior VTE?: No VTE Risk Level:: Medical - moderate - high VTE Device Contraindication: N/A - Device Ordered VTE Drug Contraindication: N/A - Med Ordered
[2022-03-27] MEDS: Azithromycin 500 MG in 0.9 % Sodium Chloride 250 ML 125 MG IV (15:15)
[2022-03-27] MEDS: cefTRIAXone sodium 2 GM in 0.9 % Sodium Chloride 50 ML IV (15:30)
[2022-03-27] MEDS: vancomycin HCL 1,250 MG in 0.9 % Sodium Chloride 250 ML 166.67 MG IV (17:09)
[2022-03-28] VITALS (41 sets, daily range): BP systolic 101–145; BP diastolic 44–76; PULSE 61–100; RESP 20–30; TEMP 34.9–37.5; O2SAT 90–97; BMI 37.1
[2022-03-28] MEDS: Norepinephrine Bitartrate/D5W 8 MG/250 ML PLAST..BAG 5.35 MG IV (00:17)
[2022-03-28] MEDS: propofoL 1,000 MG/100 ML VIAL 28.53 MG IVCONT ×3 (00:17→06:13)
[2022-03-28] MEDS: methylPREDNISolone Sod Succ 125 MG/2 ML VIAL 60 MG IVPUSH ×4 (02:50→20:02)
[2022-03-28] MEDS: Heparin Sodium,Porcine 5,000 UNIT/ML VIAL 5000 UNIT SUBCUT ×3 (02:50→18:39)
[2022-03-28 04:23] LABS: VBG Base Excess 11.4 mmol/L; VBG HCO3 37 mmol/L (22-26); VBG pCO2 55 mmHg; VBG pH 7.43 (7.32-7.43); VBG pO2 60 mmHg
[2022-03-28 04:23] LABS: MANUAL DIFF FLAG NO
[2022-03-28 04:24] LABS: Basophils Absolute Auto 0.1 X10*3/uL (0.0-0.2); Basophils Percent Auto 0.3 % (0-2); Hematocrit 37.8 % (37.0-47.0); Hemoglobin 12.4 g/dl (12.0-16.0); Imm Gran Abs Auto 0.85 X10*3/uL (0.00-0.03); Imm Gran Pct Auto 4.9 % (0.0-0.4); Lymphocytes Absolute Auto 0.8 X10*3/uL (1.2-4.9); Lymphocytes Percent Auto 4.4 % (20-40); Mean Corpuscular HGB Conc 32.8 g/dl (31.0-35.0); Mean Corpuscular Volume 91.5 fL (80.0-98.0); Mean Platelet Volume 10.6 fL (9.4-12.3); Monocytes Percent Auto 5.9 % (2-11); NRBC Pct Auto 0.1 /100WBC (0.0-0.2); Neutrophils Absolute Auto 14.7 x10*3/uL (2.0-8.3); Neutrophils Percent Auto 84.5 % (45-73); Platelet Count 405 X10*3/uL (160-400); Red Blood Count 4.13 X10*6/uL (4.20-5.50); Red Cell Distribution Width 12.3 % (11.0-16.0); White Blood Count 17.4 X10*3/uL (4.8-10.8)
[2022-03-28 04:35] LABS: D Dimer High Sensitivity 461 NG/ML
[2022-03-28 04:41] LABS: Albumin Level 2.8 g/dL (3.5-5.0); Anion Gap 15 (12-20); Blood Urea Nitrogen 18 mg/dL (9-16); Calcium 8.8 mg/dL (8.4-10.2); Carbon Dioxide 28 mmol/L (22-29); Chloride 102 mmol/L (96-108); Creatinine Clr Calc Pharmacy 95.3; Estimated Glomerular Filt Rate > 60; Glucose Random 281 mg/dL (60-115); Magnesium 2.3 mg/dL (1.6-2.6); Phosphorus 2.7 mg/dL (2.7-4.5); Sodium 141 mmol/L (135-145)
[2022-03-28] MEDS: vancomycin HCL 1,250 MG in 0.9 % Sodium Chloride 250 ML 166.67 MG IV ×2 (05:04→17:29)
[2022-03-28 05:17] LABS: Venous Blood Gas Refer to POC result
--- NOTE | 2022-03-28 07:32 | PM.CCPN ---
Subjective Subjective Date of Service: 03/28/22 Interval History: today we did sedation holiday because she was doing beautifully on an FiO2 of 40% and a 7 L minute ventilatory requirement maintaining end-tidal CO2 is approximately 40 still with an obstructive pattern but we noted that she woke up with good cognitive function spent several hours on pressure support and then started to become tachypneic when we weaned her to 12/5 with pressure support over PEEP and distressed with acute hypertension tachycardia so she was recent dated and rested back on assist control and doing well as we thought she is growing pneumococcus so clearly this was a pneumococcal pneumonia Critical Care Time (minutes): 45 Physical Exam Vital Signs: Vital Signs: Last Vital Signs Temp 98.2 F 03/28/22 07:00 Pulse 70 03/28/22 07:00 Resp 20 03/28/22 07:00 BP 113/44 L 03/28/22 07:00 Pulse Ox 95 03/28/22 07:00 O2 Del Method 03/28/22 07:00 O2 Flow Rate 40 03/28/22 06:00 FiO2 40 03/28/22 07:00 BMI result Body Mass Index 37.1 vital signs stable neurologically intact bedside echo with preserved LV function some degree of diaphragmatic effort no where near is a significant as it was 2 days earlier but no oth er adventitious sounds add abdomen soft tolerating feedings and no organomegaly Objective Data Labs 03/28/22 04:14 03/28/22 04:14 Labs: Laboratory Results - last 24 hr 03/26/22 03/27/22 03/28/22 23:45 12:47 04:14 WBC 17.4 H RBC 4.13 L Hgb 12.4 Hct 37.8 MCV 91.5 MCH 30.0 MCHC 32.8 RDW 12.3 Plt Count 405 H D MPV 10.6 Immature Gran % (Auto) 4.9 H Neut % (Auto) 84.5 H Lymph % (Auto) 4.4 L [place] % (Auto) 5.9 Eos % (Auto) 0.0 Baso % (Auto) 0.3 Lymph # (Auto) 0.8 L [place] # (Auto) 1.0 Eos # (Auto) 0.0 Baso # (Auto) 0.1 Abs Immat Gran (auto) 0.85 H Absolute Neuts (auto) 14.7 H Absolute Nucleated RBC 0.020 H Nucleated RBC % (auto) 0.1 D-Dimer High Sensitivty VBG pH 7.39 VBG pCO2 54 VBG pO2 72 VBG HCO3 33 H VBG O2 Saturation 95.0 VBG Base Excess 7.2 Sodium Potassium Chloride Carbon Dioxide Anion Gap BUN Creatinine Estim Creat Clear Calc Estimated GFR Random Glucose Calcium Phosphorus Magnesium Albumin Respiratory Panel [place] See Note Adenovirus (Rapid PCR) Not Detected B.pert (TEM-PCR) Not Detected B.parapertussis DNA PCR Not Detected C. pneumoniae DNA (PCR) Not Detected Coronavirus OC43 (PCR) Not Detected Coronavirus HKU1 (PCR) Not Detected Coronavirus 229E (PCR) Not Detected Coronavirus NL63 (PCR) Not Detected Human Metapneumovir PCR Not Detected Influenza A (RT-PCR) Not Detected Influenza B (RT-PCR) Not Detected M. pneumoniae (PCR) Not Detected Parainfluenza 1 (PCR) Not Detected Parainfluenza 2 (PCR) Not Detected Parainfluenza 3 (PCR) Not Detected Parainfluenza 4 (PCR) Not Detected RSV (PCR) Not Detected Entero/Rhino (PCR) Not Detected SARS-CoV-2 RNA (RT-PCR) Not Detected 03/28/22 03/28/22 03/28/22 04:14 04:14 04:15 WBC RBC Hgb Hct MCV MCH MCHC RDW Plt Count MPV Immature Gran % (Auto) Neut % (Auto) Lymph % (Auto) [place] % (Auto) Eos % (Auto) Baso % (Auto) Lymph # (Auto) [place] # (Auto) Eos # (Auto) Baso # (Auto) Abs Immat Gran (auto) Absolute Neuts (auto) Absolute Nucleated RBC Nucleated RBC % (auto) D-Dimer High Sensitivty 461 VBG pH 7.43 VBG pCO2 55 VBG pO2 60 VBG HCO3 37 H VBG O2 Saturation 91.0 VBG Base Excess 11.4 Sodium 141 Potassium 4.0 Chloride 102 Carbon Dioxide 28 Anion Gap 15 BUN 18 H Creatinine 0.68 Estim Creat Clear Calc 95.3 Estimated GFR > 60 Random Glucose 281 H Calcium 8.8 D Phosphorus 2.7 Magnesium 2.3 Albumin 2.8 L Respiratory Panel [place] Adenovirus (Rapid PCR) B.pert (TEM-PCR) B.parapertussis DNA PCR C. pneumoniae DNA (PCR) Coronavirus OC43 (PCR) Coronavirus HKU1 (PCR) Coronavirus 229E (PCR) Coronavirus NL63 (PCR) Human Metapneumovir PCR Influenza A (RT-PCR) Influenza B (RT-PCR) M. pneumoniae (PCR) Parainfluenza 1 (PCR) Parainfluenza 2 (PCR) Parainfluenza 3 (PCR) Parainfluenza 4 (PCR) RSV (PCR) Entero/Rhino (PCR) SARS-CoV-2 RNA (RT-PCR) Microbiology Microbiology Results: Microbiology 03/26/22 13:34 Blood - Venous Blood Culture - Preliminary Prelim: GPC Gram Stain only Prelim: GPR Gram Stain only 03/26/22 13:24 Blood - Venous Blood Culture - Preliminary No growth after 24 hours. 03/26/22 17:55 Sputum - Suctioned Gram Stain - Final 03/26/22 17:55 Sputum - Suctioned Sputum Culture - Preliminary Culture in progress. Progress Note: A&P Assessment and plan (1) Acute on chronic respiratory failure with hypoxia and hypercapnia: Status: Acute (2) Respiratory failure: Status: Acute (3) Chronic obstructive pulmonary disease: Status: Acute (4) COPD (chronic obstructive pulmonary disease): Status: Acute (5) Pneumonia: Status: Acute (6) Respiratory failure with hypoxia: Status: Acute (7) Hypertension: Status: Acute (8) Breast CA: Status: Acute (9) COVID-19: Status: Acute (10) Hypoxia: Status: Acute Plan so this is a resolving pneumonia and acute respiratory failure tomorrow will do the same sedation holiday and another attempt at pressure support weaning trial Quality Stroke Does the patient have a stroke diagnosis?: No VTE Prior VTE?: No VTE Risk Level:: Medical - moderate - high VTE Device Contraindication: N/A - Device Ordered VTE Drug Contraindication: N/A - Med Ordered
[2022-03-28] MEDS: Chlorhexidine Gluc Oral Rinse 15 ML MOUTHWASH BUCCAL ×3 (07:45→20:02)
[2022-03-28] MEDS: Albuterol/Iprat 2.5/0.5MG 3 ML AMPUL.NEB INHALE ×4 (09:03→20:22)
--- NOTE | 2022-03-28 09:08 | P.CDIC_ITS ---
CDI Concurrent Query Documentation Clarification: PHYSICIAN'S DOCUMENTATION REQUEST Date of Query: 03/28/22 0908 Patient Name: Fernanda Peace Admit Date: 03/26/22 Dear Doctor, A review of the medical record indicates additional documentation may be needed. Please review below and update the documentation accordingly. Clinical Indicators: Risk Factors/Clinical Indicators/Treatments ED 03/26 - Patient receiving hour long albuterol nebulization treatment, Solumedrol, magnesium, RR 28, best to intubate at this time. Longstanding COPD, gradually declining, accessory muscles use, uses couple of liters oxygen at home, sat's 50's on 2 liters oxygen and Duoneb. Specifics to noted diagnosis: Please clarify based on the above if: COPD exacerbation COPD * [ ] was present on admission * [ ] was not present on admission * Unable to determine Use of terms such as suspected, likely, concern for, or probable (associated with a specific diagnosis that is being evaluated, monitored, or treated as if it exists) are acceptable and can be coded in the inpatient setting, when documented at the time of discharge. Thank you, Dory Perez [facility], CDIS Extension: [phone] Please use your independent medical judgment in providing your response. THIS QUERY IS PART OF THE PERMANENT MEDICAL RECORD Provider Response: COPD Exacerbation Other Diagnosis: COPD exacerbation highly probable up on admission
--- NOTE | 2022-03-28 09:25 | MHC.CLN ---
F/U PT REMAINS INTUBATED AND SEDATED PT RECEIVING GLUCERNA AT MAX GOAL RATE 50ML/HR WITH 30ML PROSOURCE TID AND 240ML FREE WATER FLUSHES Q 4 HRS PROVIDES 1200KCALS (2133KCALS WITH SEDATION; 32KCALS/KG), 95G TOTAL PROTEIN (1.4G/KG), 1983ML TOTAL WATER FROM FORMULA AND FLUSHES (30ML/KG) TF OVEREXCEEDED ESTIMATED KCALS AND PROTEIN NEEDS RECOMMEND GLUCERNA AT MAX GOAL RATE 40ML/HR WITH 30ML PROSOURCE TID AND 240ML FREE WATER FLUSHES Q 4 HRS PROVIDES 1140KCALS (1893KCALS WITH SEDATION; 28KCALS/KG), 85G TOTAL PROTEIN (1.3G/KG), 2259ML TOTAL WATER FROM FORMULA AND FLUSHES (34ML/KG) MONITOR TOLERANCE, RESIDUALS AND LYTES
[2022-03-28] MEDS: propofoL 1,000 MG/100 ML VIAL 17.12 MG IVCONT ×3 (11:52→22:01)
[2022-03-28] MEDS: cefTRIAXone sodium 2 GM in 0.9 % Sodium Chloride 50 ML IV (16:18)
[2022-03-28] MEDS: Azithromycin 500 MG in 0.9 % Sodium Chloride 250 ML 125 MG IV (16:20)
[2022-03-28 16:27] LABS: Vancomycin Random 12.3 mcg/mL (15-20)
--- NOTE | 2022-03-28 16:48 | PC.NURSE ---
Assumed care at approx 1500. Random vanco 12.3 - Dr Carrillo aware - no orders to change dose for 1800. Tolerating vent settings with propofol (see MAR for rate). Map >65.
[2022-03-29] VITALS (34 sets, daily range): BP systolic 110–165; BP diastolic 53–75; PULSE 60–97; RESP 12–28; TEMP 34.8–37.5; O2SAT 93–96; BMI 37.6
[2022-03-29] MEDS: propofoL 1,000 MG/100 ML VIAL 28.53 MG IVCONT ×2 (01:47→04:14)
[2022-03-29] MEDS: methylPREDNISolone Sod Succ 125 MG/2 ML VIAL 60 MG IVPUSH ×4 (02:46→19:32)
[2022-03-29] MEDS: Heparin Sodium,Porcine 5,000 UNIT/ML VIAL 5000 UNIT SUBCUT ×3 (02:47→19:32)
[2022-03-29 05:08] LABS: VBG Base Excess 15.7 mmol/L; VBG HCO3 42 mmol/L (22-26); VBG pCO2 59 mmHg; VBG pH 7.46 (7.32-7.43); VBG pO2 59 mmHg
[2022-03-29 05:18] LABS: Venous Blood Gas Refer to POC result
[2022-03-29 05:21] LABS: Hematocrit 35.1 % (37.0-47.0); Hemoglobin 11.3 g/dl (12.0-16.0); Mean Corpuscular HGB Conc 32.2 g/dl (31.0-35.0); Mean Corpuscular Hemoglobin 29.7 pg (27.0-33.0); Mean Corpuscular Volume 92.4 fL (80.0-98.0); Mean Platelet Volume 10.8 fL (9.4-12.3); NRBC Pct Auto 0.4 /100WBC (0.0-0.2); Platelet Count 271 X10*3/uL (160-400); Red Cell Distribution Width 12.4 % (11.0-16.0); White Blood Count 7.7 X10*3/uL (4.8-10.8)
[2022-03-29] MEDS: vancomycin HCL 1,250 MG in 0.9 % Sodium Chloride 250 ML 166.67 MG IV (05:27)
[2022-03-29 05:41] LABS: Albumin Level 2.7 g/dL (3.5-5.0); Anion Gap 14 (12-20); Blood Urea Nitrogen 27 mg/dL (9-16); Calcium 8.5 mg/dL (8.4-10.2); Carbon Dioxide 32 mmol/L (22-29); Chloride 103 mmol/L (96-108); Creatinine Clr Calc Pharmacy 104.5; Estimated Glomerular Filt Rate > 60; Glucose Random 221 mg/dL (60-115); Magnesium 2.2 mg/dL (1.6-2.6); Phosphorus 3.4 mg/dL (2.7-4.5); Potassium 4.6 mmol/L (3.3-5.1); Sodium 144 mmol/L (135-145)
[2022-03-29 05:49] LABS: Band Neutrophils Percent 7 % (3-5); Basophilic Stippling 1+ (0-2) /OIF; Lymphocytes Absolute Manual 0.3 X10*3/uL (1.2-4.9); Lymphocytes Percent Manual 4 % (20-40); Monocytes Absolute Manual 0.2 X10*3/uL (0.1-1.2); Monocytes Percent Manual 2 % (2-11); Myelocytes Absolute 0.2 X10*/uL; Myelocytes Percent 2 %; Neutrophils Absolute Manual 7.1 X10*3/uL (2.0-8.3); Neutrophils Percent Manual 85 % (45-73); Platelet Estimate NORMAL (NORMAL); Platelet Morphology Comment NORMAL; Polychromasia 1+ (0-2) /OIF; RBC Morphology NOTED
[2022-03-29 05:50] LABS: Smudge Cells PRESENT
[2022-03-29] MEDS: Albuterol/Iprat 2.5/0.5MG 3 ML AMPUL.NEB INHALE ×4 (07:50→19:54)
[2022-03-29] MEDS: Chlorhexidine Gluc Oral Rinse 15 ML MOUTHWASH BUCCAL ×3 (08:05→21:34)
[2022-03-29] MEDS: Albumin Human 25 % 100 ML IV (08:12)
[2022-03-29 10:10] LABS: VBG Base Excess 10.9 mmol/L; VBG HCO3 36 mmol/L (22-26); VBG pCO2 52 mmHg; VBG pH 7.45 (7.32-7.43); VBG pO2 59 mmHg
--- NOTE | 2022-03-29 11:04 | MHC.CM.PN ---
Pt continues care in ICU: vented with goals of today's care focused on sedation reduction and PSV trial. [facility] referrals have been made. Pt will need a PT eval once extubated and be able to participate in treatment. CM to follow
[2022-03-29 11:47] LABS: Venous Blood Gas Refer to POC result
--- NOTE | 2022-03-29 12:31 | PM.CCPN ---
Subjective Subjective Date of Service: 03/29/22 Interval History: 62-year-old morbidly obese type 2 diabetic with severe COPD oxygen-dependent presented with acute on chronic hypercarbic and hypoxic respiratory failure and due to pneumococcal multilobar pneumonia which is clinically resolving and today woke up appropriately with good cognitive function and is now down to pressure support trial of 12/5 with 350 cc tidal volumes and minute ventilatory requirements under 9 L and without accessory muscle a diaphragmatic effort for the 1st time and an FiO2 of 40% I noted significant positivity to the intake and output ratio measured CVP is is only 7 but I am going to give her 20 mg of Lasix in case and she can tolerate pressure support trial at 12/5 maintaining pCO2 in the low 50s which is her chronic state than I would extubate and even if we have to use nocturnal BiPAP as part of her support mechanism Critical Care Time (minutes): 45 Physical Exam Vital Signs: Vital Signs: Last Vital Signs Temp 98.1 F 03/29/22 12:00 Pulse 84 03/29/22 12:00 Resp 21 H 03/29/22 12:00 BP 135/60 03/29/22 12:00 Pulse Ox 94 03/29/22 12:00 O2 Del Method 03/29/22 12:00 O2 Flow Rate 40 03/28/22 06:00 FiO2 40 03/29/22 12:00 BMI result Body Mass Index 37.6 146/65 with 95% oxygen saturation and sinus rhythm rate 84 good cognitive function no focal neurologic issues bedside echo with good LV and RV function abdomen soft with no organomegaly and tolerating feedings Objective Data Labs 03/29/22 04:55 03/29/22 04:55 Labs: Laboratory Results - last 24 hr 03/28/22 03/29/22 03/29/22 16:01 04:55 04:55 WBC 7.7 RBC 3.80 L Hgb 11.3 L Hct 35.1 L MCV 92.4 MCH 29.7 MCHC 32.2 RDW 12.4 Plt Count 271 D MPV 10.8 Immature Gran % (Auto) Cancelled Neut % (Auto) Cancelled Lymph % (Auto) Cancelled [place] % (Auto) Cancelled Eos % (Auto) Cancelled Baso % (Auto) Cancelled Lymph # (Auto) Cancelled [place] # (Auto) Cancelled Eos # (Auto) Cancelled Baso # (Auto) Cancelled Abs Immat Gran (auto) Cancelled Absolute Neuts (auto) Cancelled Absolute Nucleated RBC 0.030 H Nucleated RBC % (auto) 0.4 H Neutrophils % (Manual) 85 H Band Neutrophils % 7 H Lymphocytes % (Manual) 4 L Monocytes % (Manual) 2 Myelocytes % 2 Abs Neuts (Manual) 7.1 Lymphocytes # (Manual) 0.3 L Monocytes # (Manual) 0.2 Myelocytes # 0.2 Smudge Cells PRESENT Platelet Estimate NORMAL Plt Morphology Comment NORMAL RBC Morphology NOTED Polychromasia 1+ (0-2) Basophilic Stippling 1+ (0-2) VBG pH VBG pCO2 VBG pO2 VBG HCO3 VBG O2 Saturation VBG Base Excess Sodium Potassium Chloride Carbon Dioxide Anion Gap BUN Creatinine Cancelled Estim Creat Clear Calc Cancelled Estimated GFR Cancelled Random Glucose Calcium Phosphorus Magnesium Albumin Random Vancomycin 12.3 L 03/29/22 03/29/22 03/29/22 04:55 05:00 10:03 WBC RBC Hgb Hct MCV MCH MCHC RDW Plt Count MPV Immature Gran % (Auto) Neut % (Auto) Lymph % (Auto) [place] % (Auto) Eos % (Auto) Baso % (Auto) Lymph # (Auto) [place] # (Auto) Eos # (Auto) Baso # (Auto) Abs Immat Gran (auto) Absolute Neuts (auto) Absolute Nucleated RBC Nucleated RBC % (auto) Neutrophils % (Manual) Band Neutrophils % Lymphocytes % (Manual) Monocytes % (Manual) Myelocytes % Abs Neuts (Manual) Lymphocytes # (Manual) Monocytes # (Manual) Myelocytes # Smudge Cells Platelet Estimate Plt Morphology Comment RBC Morphology Polychromasia Basophilic Stippling VBG pH 7.46 H 7.45 H VBG pCO2 59 52 VBG pO2 59 59 VBG HCO3 42 H 36 H VBG O2 Saturation 89.0 80.0 VBG Base Excess 15.7 10.9 Sodium 144 Potassium 4.6 Chloride 103 Carbon Dioxide 32 H Anion Gap 14 BUN 27 H Creatinine 0.64 Estim Creat Clear Calc 104.5 Estimated GFR > 60 Random Glucose 221 H Calcium 8.5 Phosphorus 3.4 Magnesium 2.2 Albumin 2.7 L Random Vancomycin Microbiology Microbiology Results: Microbiology 03/26/22 13:34 Blood - Venous Blood Culture - Final Coag negative Staphylococcus Corynebacterium species 03/26/22 17:55 Sputum - Suctioned Gram Stain - Final 03/26/22 17:55 Sputum - Suctioned Sputum Culture - Final Streptococcus pneumoniae 03/26/22 13:24 Blood - Venous Blood Culture - Preliminary No growth after 48 hours. 03/27/22 07:14 Urine Catheterized - Pruitt Catheter Urine Culture - Final No growth. Progress Note: A&P Assessment and plan (1) Acute on chronic respiratory failure with hypoxia and hypercapnia: Status: Acute (2) Respiratory failure: Status: Acute (3) Chronic obstructive pulmonary disease: Status: Acute (4) COPD (chronic obstructive pulmonary disease): Status: Acute (5) Pneumonia: Status: Acute (6) Respiratory failure with hypoxia: Status: Acute (7) Hypertension: Status: Acute (8) Breast CA: Status: Acute (9) COVID-19: Status: Acute (10) Hypoxia: Status: Acute Plan the plan potentially is to extubate hopefully today and if that is the case will then evaluate her support requirements I might initiate nasal high-flow see how she tolerates and not then I will use nocturnal BiPAP as an additional mechanism Quality Stroke Does the patient have a stroke diagnosis?: No VTE Prior VTE?: No VTE Risk Level:: Medical - moderate - high VTE Device Contraindication: N/A - Device Ordered VTE Drug Contraindication: N/A - Med Ordered
[2022-03-29] MEDS: Furosemide 20 MG/2 ML VIAL IVPUSH (13:58)
[2022-03-29] MEDS: cefTRIAXone sodium 2 GM in 0.9 % Sodium Chloride 50 ML IV (16:39)
[2022-03-29 17:51] LABS: Vancomycin Trough 15.8 mcg/mL (10.0-20.0)
--- NOTE | 2022-03-29 18:27 | PC.NURSE ---
PATIENT SEDATED TO RASS -3 AT BEGINNING OF SHIFT. SEDATION VACATION INITIATED AT 0720, PROPOFOL GTT PAUSED. PATIENT QUICKLY STARTED TO BECOME MORE EASILY AROUSABLE. SOON ABLE TO ANSWER QUESTIONS APPROPRIATELY BY NODDING YES/NO. VENT SETTING SWITCHED FROM ACVC TO PSV SETTING. PRESSURE SUPPORT TITRATED DOWN OVER THE COURSE OF THE DAY. SEE VENT ASSESSMENT. PATIENT REMAINED ON PSV SETTING FOR DURATION OF DAY, TOLERATING WELL. LASIX GIVEN IVP WITH GOOD EFFECT NOTED, SEE EMAR. PATIENT AND FAMILY UPDATED ON CURRENT HEALTH STATUS, PATIENT REPOSITIONED Q2HR, ROUTINE ORAL CARE PROVIDED.
[2022-03-29] MEDS: dexmedeTOMIDidine HCL/NS 400 MCG/100 ML INFUS..BTL 24.88 MCG IVCONT ×2 (20:00→22:59)
[2022-03-30] VITALS (39 sets, daily range): BP systolic 95–173; BP diastolic 46–76; PULSE 58–90; RESP 12–27; TEMP 34–37.9; O2SAT 43–95; BMI 36.6
[2022-03-30] MEDS: Furosemide 20 MG/2 ML VIAL IVPUSH (00:42)
[2022-03-30] MEDS: Heparin Sodium,Porcine 5,000 UNIT/ML VIAL 5000 UNIT SUBCUT ×3 (02:28→20:48)
[2022-03-30] MEDS: methylPREDNISolone Sod Succ 125 MG/2 ML VIAL 60 MG IVPUSH ×4 (02:28→20:48)
[2022-03-30] MEDS: dexmedeTOMIDidine HCL/NS 400 MCG/100 ML INFUS..BTL 24.88 MCG IVCONT ×2 (02:28→05:49)
--- NOTE | 2022-03-30 04:25 | PC.NURSE ---
Addendum entered by Mihai Echols, NU 03/30/22 06:04: diuresed approx 2.5 liters post-lasix--sbp remains 160's---cvp decreased from 12-13 to currently 9-10--6am precidex held per icu special education [employer] teacher and vent changed to cpap 5/psv 12/fio2 40%---rr 18-22---Ve 6.5-7.5 l/m..remains restful--no distress Original Note: CARE ASSUMED 23:15...REMAINS INTUBATED--VCV VENT SUPPORT---PRECIDEX DRIP 1 MCG/KG/HR--RESTFUL--AWAKE TO VERBAL STIMULI--NODS YES/NO TO SIMPLE QUESTIONS--ROSE TO COMMAND--DENIES PAIN---HS SBP 170-180--CVP 12-13--LUNGS DIMINISHED LOWER CRUZ WITH FINE CRACKLES--FLUID BALANCE APPROX (+) 6 LITERS--LASIX 20MG IV X1 PER ICU PA WITH BRISK DIURESIS---OG-TUBE FEEDS 40 CC/HR---500ML ASPIRATE OBTAINED 12AM---TUBE FEEDS AND WATER BOLUSES HELD PER TREATING ENGINEER--PROBABLE EXTUBATION IN AM..NSR..NO ECTOPY
[2022-03-30 04:45] LABS: VBG Base Excess 24.4 mmol/L; VBG HCO3 51 mmol/L (22-26); VBG pCO2 60 mmHg; VBG pH 7.53 (7.32-7.43); VBG pO2 47 mmHg
[2022-03-30 04:49] LABS: Hematocrit 40.1 % (37.0-47.0); Hemoglobin 13.2 g/dl (12.0-16.0); Mean Corpuscular HGB Conc 32.9 g/dl (31.0-35.0); Mean Corpuscular Hemoglobin 29.7 pg (27.0-33.0); Mean Corpuscular Volume 90.1 fL (80.0-98.0); Mean Platelet Volume 10.4 fL (9.4-12.3); NRBC Pct Auto 0.8 /100WBC (0.0-0.2); Platelet Count 297 X10*3/uL (160-400); Red Blood Count 4.45 X10*6/uL (4.20-5.50)
[2022-03-30 05:02] LABS: Creatinine Clr Calc Pharmacy 95.5; Estimated Glomerular Filt Rate > 60
[2022-03-30 05:05] LABS: Albumin Level 3.6 g/dL (3.5-5.0); Anion Gap 15 (12-20); Blood Urea Nitrogen 29 mg/dL (9-16); Carbon Dioxide 42 mmol/L (22-29); Chloride 92 mmol/L (96-108); Creatinine Clr Calc Pharmacy 94.1; Estimated Glomerular Filt Rate > 60; Glucose Random 214 mg/dL (60-115); Magnesium 2.4 mg/dL (1.6-2.6); Phosphorus 4.1 mg/dL (2.7-4.5); Potassium 4.3 mmol/L (3.3-5.1); Sodium 145 mmol/L (135-145)
[2022-03-30 05:14] LABS: Band Neutrophils Percent 11 % (3-5); Lymphocytes Absolute Manual 0.4 X10*3/uL (1.2-4.9); Lymphocytes Percent Manual 5 % (20-40); Macrocytosis 1+ (5-14) /OIF; Metamyelocytes Absolute 0.1 X10*3/uL; Metamyelocytes Percent 1 %; Monocytes Absolute Manual 0.2 X10*3/uL (0.1-1.2); Monocytes Percent Manual 2 % (2-11); Myelocytes Absolute 0.4 X10*/uL; Myelocytes Percent 5 %; Neutrophils Absolute Manual 6.8 X10*3/uL (2.0-8.3); Neutrophils Percent Manual 74 % (45-73); Platelet Estimate NORMAL (NORMAL); Platelet Morphology Comment NORMAL; Promyelocytes Absolute 0.2 X10*3/uL; Promyelocytes Percent 2 %; RBC Morphology NOTED
[2022-03-30 05:15] LABS: Basophilic Stippling 1+ (0-2) /OIF; Polychromasia 1+ (0-2) /OIF; Smudge Cells PRESENT
[2022-03-30 05:43] LABS: Venous Blood Gas Refer to POC result
[2022-03-30] MEDS: Albuterol/Iprat 2.5/0.5MG 3 ML AMPUL.NEB INHALE ×4 (07:18→18:59)
[2022-03-30] MEDS: Chlorhexidine Gluc Oral Rinse 15 ML MOUTHWASH BUCCAL ×2 (08:21→17:16)
--- NOTE | 2022-03-30 10:57 | MHC.CLN ---
F/U PT IS S/P EXTUBATION TF HELD R/T HIGH RESIDUALS PT IS CURRENTLY NPO IF DIET TO ADVANCE; RECOMMEND 1500DM DIET FOLLOWING WITH TEAM
--- NOTE | 2022-03-30 11:52 | PM.CCPN ---
Subjective Subjective Date of Service: 03/30/22 Interval History: 62-year-old morbidly obese female with background history of COPD and oxygen dependence presenting with a acute on chronic hypercarbic and hypoxic respiratory failure with marked increase in work of breathing with accessory muscles and diaphragmatic effort and clearly representing not just a multilobar pneumonia which turned out to be pneumococcal in origin but severe COPD exacerbation and as mental status progressively diminished requiring urgent intubation which was done without complication and today as she lost her diaphragmatic effort and gradually improved her tidal volume on nominal pressure support settings on the ventilator and minimal minute mental ventilatory requirements we were able to comfortably extubate her and bridge her straight to a nominal setting on BiPAP device and will currently evaluate her swallow capability possibly introduce p.o. diet slowly Critical Care Time (minutes): 45 Physical Exam Vital Signs: Vital Signs: Last Vital Signs Temp 99.3 F 03/30/22 08:00 Pulse 76 03/30/22 11:33 Resp 22 H 03/30/22 11:33 BP 136/61 03/30/22 11:00 Pulse Ox 89 L 03/30/22 11:00 O2 Del Method 03/30/22 11:00 O2 Flow Rate 40 03/29/22 23:00 FiO2 35 03/30/22 11:00 BMI result Body Mass Index 36.6 awake alert oriented and conversant no distress on noninvasive ventilation and no accessory muscle requirement no adventitious sounds abdomen soft nontender no organomegaly bedside echo shows normal preserved LV function status post 4 L diuresis given her markedly positive intake and output ratio over the last several days and CVP has come down from 7-5 Objective Data Labs 03/30/22 04:35 03/30/22 04:35 Labs: Laboratory Results - last 24 hr 03/29/22 03/30/22 03/30/22 16:03 04:35 04:35 WBC 8.0 RBC 4.45 Hgb 13.2 Hct 40.1 MCV 90.1 MCH 29.7 MCHC 32.9 RDW 12.0 Plt Count 297 MPV 10.4 Immature Gran % (Auto) Cancelled Neut % (Auto) Cancelled Lymph % (Auto) Cancelled [place] % (Auto) Cancelled Eos % (Auto) Cancelled Baso % (Auto) Cancelled Lymph # (Auto) Cancelled [place] # (Auto) Cancelled Eos # (Auto) Cancelled Baso # (Auto) Cancelled Abs Immat Gran (auto) Cancelled Absolute Neuts (auto) Cancelled Absolute Nucleated RBC 0.060 H Nucleated RBC % (auto) 0.8 H Neutrophils % (Manual) 74 H Band Neutrophils % 11 H Lymphocytes % (Manual) 5 L Monocytes % (Manual) 2 Metamyelocytes % 1 Myelocytes % 5 Promyelocytes % 2 Abs Neuts (Manual) 6.8 Lymphocytes # (Manual) 0.4 L Monocytes # (Manual) 0.2 Metamyelocytes # 0.1 Myelocytes # 0.4 Promyelocytes # 0.2 Smudge Cells PRESENT Platelet Estimate NORMAL Plt Morphology Comment NORMAL RBC Morphology NOTED Polychromasia 1+ (0-2) Basophilic Stippling 1+ (0-2) Macrocytosis 1+ (5-14) VBG pH VBG pCO2 VBG pO2 VBG HCO3 VBG O2 Saturation VBG Base Excess Sodium Potassium Chloride Carbon Dioxide Anion Gap BUN Creatinine 0.69 Estim Creat Clear Calc 95.5 Estimated GFR > 60 Random Glucose Calcium Phosphorus Magnesium Albumin Vancomycin Trough 15.8 03/30/22 03/30/22 04:35 04:38 WBC RBC Hgb Hct MCV MCH MCHC RDW Plt Count MPV Immature Gran % (Auto) Neut % (Auto) Lymph % (Auto) [place] % (Auto) Eos % (Auto) Baso % (Auto) Lymph # (Auto) [place] # (Auto) Eos # (Auto) Baso # (Auto) Abs Immat Gran (auto) Absolute Neuts (auto) Absolute Nucleated RBC Nucleated RBC % (auto) Neutrophils % (Manual) Band Neutrophils % Lymphocytes % (Manual) Monocytes % (Manual) Metamyelocytes % Myelocytes % Promyelocytes % Abs Neuts (Manual) Lymphocytes # (Manual) Monocytes # (Manual) Metamyelocytes # Myelocytes # Promyelocytes # Smudge Cells Platelet Estimate Plt Morphology Comment RBC Morphology Polychromasia Basophilic Stippling Macrocytosis VBG pH 7.53 H VBG pCO2 60 VBG pO2 47 VBG HCO3 51 H VBG O2 Saturation 70.0 VBG Base Excess 24.4 Sodium 145 Potassium 4.3 Chloride 92 L Carbon Dioxide 42 H* D Anion Gap 15 BUN 29 H Creatinine 0.70 Estim Creat Clear Calc 94.1 Estimated GFR > 60 Random Glucose 214 H Calcium 9.0 Phosphorus 4.1 Magnesium 2.4 Albumin 3.6 Vancomycin Trough Microbiology Microbiology Results: Microbiology 03/26/22 13:34 Blood - Venous Blood Culture - Final Coag negative Staphylococcus Corynebacterium species 03/26/22 17:55 Sputum - Suctioned Gram Stain - Final 03/26/22 17:55 Sputum - Suctioned Sputum Culture - Final Streptococcus pneumoniae 03/26/22 13:24 Blood - Venous Blood Culture - Preliminary No growth after 48 hours. 03/27/22 07:14 Urine Catheterized - Pruitt Catheter Urine Culture - Final No growth. Progress Note: A&P Assessment and plan (1) Acute on chronic respiratory failure with hypoxia and hypercapnia: Status: Acute (2) Respiratory failure: Status: Acute (3) Chronic obstructive pulmonary disease: Status: Acute (4) COPD with exacerbation: Status: Acute (5) COVID-19: Status: Acute (6) Hypoxia: Status: Acute (7) Breast CA: Status: Acute (8) Hypertension: Status: Acute (9) Respiratory failure with hypoxia: Status: Acute (10) Pneumonia: Status: Acute Plan the plan if she is able to pass the swallow exam is to introduce food with nasal cannula support and then back to BiPAP as a bridging mechanism for today Quality Stroke Does the patient have a stroke diagnosis?: No VTE Prior VTE?: No VTE Risk Level:: Medical - moderate - high VTE Device Contraindication: N/A - Device Ordered VTE Drug Contraindication: N/A - Med Ordered
--- NOTE | 2022-03-30 15:11 | MHC.CM.PN ---
Pt successfully extubated today and is presently on NIPPV. STR referrals updated in anticipation of pt needing placement before transitioning to home w/family support. CM to follow
[2022-03-30 16:56] LABS: VBG Base Excess 21.7 mmol/L; VBG HCO3 47 mmol/L (22-26); VBG pCO2 57 mmHg; VBG pH 7.52 (7.32-7.43); VBG pO2 51 mmHg
[2022-03-30] MEDS: cefTRIAXone sodium 2 GM in 0.9 % Sodium Chloride 50 ML IV (17:17)
[2022-03-30 17:53] LABS: Venous Blood Gas Refer to POC result
--- NOTE | 2022-03-30 19:03 | PC.NURSE ---
VENT SETTING CHANGE TO PSV AT BEGINNING OF SHIFT, SEE VENT ASSESSMENT. PATIENT HANDLED PSV TRIAL WELL, ABLE TO MAINTAIN APPROPRIATE OXYGEN LEVELS. PATIENT EXTUBATED AT 0857. PATIENT PLACED ON BIPAP 12/5 @ 40% AT 0900. PATIENT TOLERATE BIPAP WELL, REPLACED WITH 3L NC, EVENTUALLY REPLACED WITH 3L OXYMASK DUE TO PATIENT BREATHING THROUGH MOUTH. OXYGEN TITRATED TO MAINTAIN APPROPRIATE OXYGENATION, 5L OXYMASK. SWALLOW EVALUATION PREFORMED, PATIENT PASS WITH NO DIFFICULTY. MD PLACED CLEAR LIQUID DIET. PATIENT BATHED, REPOSITIONED Q2HR, FAMILY AND PATIENT INFORMED ON CURRENT HEALTH STATUS, ROUTINE ORAL CARE PREFORMED.
[2022-03-31] VITALS (16 sets, daily range): BP systolic 142–169; BP diastolic 61–88; PULSE 56–82; RESP 13–22; TEMP 36.2–36.9; O2SAT 89–99; BMI 36.0
[2022-03-31] MEDS: Acetaminophen 325 MG TABLET 650 MG PO (01:00)
[2022-03-31] MEDS: methylPREDNISolone Sod Succ 125 MG/2 ML VIAL 60 MG IVPUSH ×2 (01:01→09:27)
[2022-03-31] MEDS: Heparin Sodium,Porcine 5,000 UNIT/ML VIAL 5000 UNIT SUBCUT ×3 (02:31→21:43)
[2022-03-31] MEDS: Melatonin 3 MG TABLET PO (02:58)
[2022-03-31 04:39] LABS: Hematocrit 38.3 % (37.0-47.0); Hemoglobin 12.1 g/dl (12.0-16.0); Mean Corpuscular HGB Conc 31.6 g/dl (31.0-35.0); Mean Corpuscular Hemoglobin 29.5 pg (27.0-33.0); Mean Corpuscular Volume 93.4 fL (80.0-98.0); Mean Platelet Volume 10.2 fL (9.4-12.3); NRBC Pct Auto 0.3 /100WBC (0.0-0.2); Platelet Count 269 X10*3/uL (160-400); Red Cell Distribution Width 11.9 % (11.0-16.0)
[2022-03-31 04:48] LABS: Albumin Level 3.1 g/dL (3.5-5.0); Anion Gap 14 (12-20); Blood Urea Nitrogen 27 mg/dL (9-16); Calcium 8.6 mg/dL (8.4-10.2); Carbon Dioxide 39 mmol/L (22-29); Chloride 97 mmol/L (96-108); Creatinine Clr Calc Pharmacy 109.8; Estimated Glomerular Filt Rate > 60; Glucose Random 173 mg/dL (60-115); Magnesium 2.6 mg/dL (1.6-2.6); Phosphorus 4.2 mg/dL (2.7-4.5); Potassium 4.5 mmol/L (3.3-5.1); Sodium 145 mmol/L (135-145)
[2022-03-31 04:59] LABS: VBG HCO3 49 mmol/L (22-26); VBG pCO2 66 mmHg; VBG pH 7.47 (7.32-7.43); VBG pO2 55 mmHg
[2022-03-31 05:13] LABS: Venous Blood Gas Refer to POC result
[2022-03-31 05:21] LABS: Band Neutrophils Percent 8 % (3-5); Lymphocytes Absolute Manual 0.6 X10*3/uL (1.2-4.9); Lymphocytes Percent Manual 5 % (20-40); Metamyelocytes Absolute 0.1 X10*3/uL; Metamyelocytes Percent 1 %; Monocytes Absolute Manual 0.6 X10*3/uL (0.1-1.2); Monocytes Percent Manual 5 % (2-11)
[2022-03-31 05:22] LABS: Myelocytes Absolute 0.2 X10*/uL; Myelocytes Percent 2 %; Neutrophils Absolute Manual 9.6 X10*3/uL (2.0-8.3); Neutrophils Percent Manual 79 % (45-73)
[2022-03-31 05:25] LABS: Basophilic Stippling 1+ (0-2) /OIF; Platelet Estimate NORMAL (NORMAL); RBC Morphology NOTED
[2022-03-31 05:26] LABS: Platelet Morphology Comment NORMAL
--- NOTE | 2022-03-31 07:43 | PM.CCPN ---
Subjective Subjective Date of Service: 03/31/22 Interval History: And 62-year-old moderately obese female with underlying COPD that is oxygen dependent presented with acute on chronic hypercarbic and hypoxic respiratory failure with severe COPD exacerbation manifested by status asthmaticus based on pneumococcal pneumonia which was multilobar requiring intubation and she has now been extubated for over 24 hours doing beautifully her normal pCO2 is at home or in the mid 50s currently 66 as she remained on just plain oxygen throughout the day and overnight I think it is on equivocal that she will need nocturnal BiPAP while she is here in the hospital and oxygen during the day she is cleared veno for regular diet but the nocturnal BiPAP I think is is a very comfortable maintenance mechanism for her and she will need to be qualified and therefore she will need pulmonary consult on the floor She will remain on ceftriaxone to complete the treatment for her pneumococcal pneumonia and I stopped her home lisinopril in case it might have been contributing to some of her airway irritability and changed to losartan 25 mg for her pressure My bedside echoes demonstrated normal LV and RV function Critical Care Time (minutes): 35 Physical Exam Vital Signs: Vital Signs: Last Vital Signs Temp 97.5 F 03/31/22 04:00 Pulse 60 03/31/22 07:00 Resp 20 03/31/22 07:00 BP 163/69 H 03/31/22 07:00 Pulse Ox 89 L 03/31/22 07:00 O2 Del Method 03/31/22 07:00 O2 Flow Rate 3 03/31/22 07:00 FiO2 35 03/30/22 14:00 BMI result Body Mass Index 36.0 Alert oriented and nonfocal Normal LV function by echo No accessory muscle or diaphragmatic effort diminished bilateral breath sounds Abdomen soft no organomegaly Clinically euvolemic Objective Data Labs 03/31/22 04:20 03/31/22 04:20 Labs: Laboratory Results - last 24 hr 03/30/22 03/31/22 03/31/22 16:48 04:20 04:20 WBC 11.0 H RBC 4.10 L Hgb 12.1 Hct 38.3 MCV 93.4 MCH 29.5 MCHC 31.6 RDW 11.9 Plt Count 269 MPV 10.2 Immature Gran % (Auto) Cancelled Neut % (Auto) Cancelled Lymph % (Auto) Cancelled [place] % (Auto) Cancelled Eos % (Auto) Cancelled Baso % (Auto) Cancelled Lymph # (Auto) Cancelled [place] # (Auto) Cancelled Eos # (Auto) Cancelled Baso # (Auto) Cancelled Abs Immat Gran (auto) Cancelled Absolute Neuts (auto) Cancelled Absolute Nucleated RBC 0.030 H Nucleated RBC % (auto) 0.3 H Neutrophils % (Manual) 79 H Band Neutrophils % 8 H Lymphocytes % (Manual) 5 L Monocytes % (Manual) 5 Metamyelocytes % 1 Myelocytes % 2 Abs Neuts (Manual) 9.6 H Lymphocytes # (Manual) 0.6 L Monocytes # (Manual) 0.6 Metamyelocytes # 0.1 Myelocytes # 0.2 Platelet Estimate NORMAL Plt Morphology Comment NORMAL RBC Morphology NOTED Basophilic Stippling 1+ (0-2) VBG pH 7.52 H VBG pCO2 57 VBG pO2 51 VBG HCO3 47 H VBG O2 Saturation 79.0 VBG Base Excess 21.7 Sodium 145 Potassium 4.5 Chloride 97 Carbon Dioxide 39 H Anion Gap 14 BUN 27 H Creatinine 0.60 Estim Creat Clear Calc 109.8 Estimated GFR > 60 Random Glucose 173 H Calcium 8.6 Phosphorus 4.2 Magnesium 2.6 Albumin 3.1 L 03/31/22 04:52 WBC RBC Hgb Hct MCV MCH MCHC RDW Plt Count MPV Immature Gran % (Auto) Neut % (Auto) Lymph % (Auto) [place] % (Auto) Eos % (Auto) Baso % (Auto) Lymph # (Auto) [place] # (Auto) Eos # (Auto) Baso # (Auto) Abs Immat Gran (auto) Absolute Neuts (auto) Absolute Nucleated RBC Nucleated RBC % (auto) Neutrophils % (Manual) Band Neutrophils % Lymphocytes % (Manual) Monocytes % (Manual) Metamyelocytes % Myelocytes % Abs Neuts (Manual) Lymphocytes # (Manual) Monocytes # (Manual) Metamyelocytes # Myelocytes # Platelet Estimate Plt Morphology Comment RBC Morphology Basophilic Stippling VBG pH 7.47 H VBG pCO2 66 VBG pO2 55 VBG HCO3 49 H VBG O2 Saturation 80.0 VBG Base Excess 22.0 Sodium Potassium Chloride Carbon Dioxide Anion Gap BUN Creatinine Estim Creat Clear Calc Estimated GFR Random Glucose Calcium Phosphorus Magnesium Albumin Microbiology Microbiology Results: Microbiology 03/26/22 13:34 Blood - Venous Blood Culture - Final Coag negative Staphylococcus Corynebacterium species 03/26/22 17:55 Sputum - Suctioned Gram Stain - Final 03/26/22 17:55 Sputum - Suctioned Sputum Culture - Final Streptococcus pneumoniae 03/26/22 13:24 Blood - Venous Blood Culture - Preliminary No growth after 48 hours. 03/27/22 07:14 Urine Catheterized - Pruitt Catheter Urine Culture - Final No growth. Progress Note: A&P Assessment and plan (1) COPD with exacerbation: Status: Acute (2) Acute on chronic respiratory failure with hypoxia and hypercapnia: Status: Acute (3) Respiratory failure: Status: Acute (4) Chronic obstructive pulmonary disease: Status: Acute (5) COPD (chronic obstructive pulmonary disease): Status: Acute (6) Pneumonia: Status: Acute (7) Respiratory failure with hypoxia: Status: Acute (8) Hypertension: Status: Acute (9) Breast CA: Status: Acute (10) COVID-19: Status: Acute (11) Hypoxia: Status: Acute Plan So the plan upon transfer upstairs nasal O2 to saturation approximating 90% and the use of nocturnal BiPAP and changing her home lisinopril to losartan Quality Stroke Does the patient have a stroke diagnosis?: No VTE Prior VTE?: No VTE Risk Level:: Medical - moderate - high VTE Device Contraindication: N/A - Device Ordered VTE Drug Contraindication: N/A - Med Ordered
[2022-03-31] MEDS: Albuterol/Iprat 2.5/0.5MG 3 ML AMPUL.NEB INHALE ×4 (09:00→20:09)
[2022-03-31] MEDS: Omeprazole 20 MG CAPSULE.DR PO ×2 (09:27→21:43)
[2022-03-31] MEDS: predniSONE 20 MG TABLET 40 MG PO ×2 (09:27→10:56)
[2022-03-31] MEDS: Losartan Potassium 25 MG TABLET PO (09:27)
[2022-03-31] MEDS: cefTRIAXone sodium 2 GM in 0.9 % Sodium Chloride 50 ML IV (15:54)
--- NOTE | 2022-03-31 21:28 | PM.CNPUL ---
History of Present Illness History of Present Illness Consult date: 03/31/22 Chief complaint: acute/chronic hypoxic/ hypercarbic resp. failure Narrative: This is an inpatient pulmonary consultation. The patient is a 62-year-old female with underlying COPD, O2 dependednt presents with increasing shortness of breath and by the initial blood gas and acute on chronic hypercarbic and hypoxic. Had a CXR with a right lower lobe infiltrate and possible small co associated pleural effusion but the CT scan which had a lot of movement artifact shows multilobar mostly right-sided infiltrate appears predominantly interstitial and negative for influenza and COVID thus far but over the 2 hours that she has been on the BiPAP a clearly becoming increasingly lethargic confused work of breathing and no better respiratory rate is in the 40s accessory muscle and diaphragmatic effort is extreme and with lost mental status this is a strong presumption that the pCO2 is more elevated she required acute intubation. She was admitted to the ICU with strep pneumonia and bacteremia. She was extubated and transferred to the floor. Her CO2 is steadily climbing and is requiring NIV. Review of Systems Review of Systems: Constitutional: No Fever, No Chills ENT/Mouth: No Hoarseness, No sore throat, No Rhinorrhea Eyes: No Redness, No Discharge, No Vision Changes Cardiovascular: No Chest Pain, positive SOB, positive Dyspnea on Exertion, No Edema Respiratory: positive Cough, No Sputum, positive Wheezing, Gastrointestinal: No Nausea, No Vomiting, No Diarrhea, No abdominal Pain Genitourinary: No Dysuria, No Hematuria Musculoskeletal: No joint pain, No Myalgias Skin: No rash Neuro: No Weakness, No Numbness, No Headache Psych: No anxiety, depression Heme/Lymph: No Bruising, No Bleeding Endocrine: No Polyuria, No Polydipsia PMFSH Past Medical History Medical History (Updated 03/30/22 @ 11:56 by Beni Carrillo MD) Breast CA COPD (chronic obstructive pulmonary disease) Hypertension Surgical History Surgical History H/O lumpectomy Social History Social History Household Members: None Housing: House Do you presently have visiting nurse or other home services: No Unable to assess alcohol history related to: Unable to respond Patient Tobacco Use Status: Former Tobacco user Smoked in Last 30 Days: No Currently Displaying Signs/Symptoms of Drug Intoxication Withdrawal: No Advance Directives: Yes Advance Directives Information Provided: No Advance Directives on File: No Advance Directives Date on File: 03/26/22 Patient : No service: No Current occupational status: disabled Meds Allergies Allergy/AdvReac Type Severity Reaction Status Date / Time Sulfa (Sulfonamide Allergy Mild RASH Verified 02/05/20 18:39 Antibiotics) codeine [Codeine] AdvReac Mild NEAR Verified 02/05/20 18:39 SYNCOPE epoprostenol [From Flolan] AdvReac Mild NAUSEA & Verified 02/05/20 18:39 VOMITING Active Medications: Current Medications Albuterol/Ipratropium (Albuterol/Iprat 2.5/0.5mg 3 Ml Ampul.Neb) 3 ml INHALE RQ4H WHILE AWAKE [facility] Last Admin: 03/31/22 20:09 Dose: 3 ml Anastrozole (Anastrozole 1 Mg Tablet) 1 mg PO DAILY [facility] Heparin Sodium (Porcine) (Heparin Sodium,Porcine 5,000 Unit/Ml Vial) 5,000 unit SUBCUT Q8H [facility] Last Admin: 03/31/22 09:28 Dose: 5,000 unit Ceftriaxone Sodium 2 gm/ (Sodium Chloride) 50 mls @ 100 mls/hr IV Q24H [facility] Last Infusion: 03/31/22 16:57 Dose: Infused Losartan Potassium (Losartan Potassium 25 Mg Tablet) 25 mg PO DAILY [facility]; Protocol Last Admin: 03/31/22 09:27 Dose: 25 mg Montelukast Sodium (Montelukast Sodium 10 Mg Tablet) 10 mg PO BEDTIME [facility] Multivitamins/Vitamin C (Multivitamin Tablet) 1 tab PO DAILY [facility] Omeprazole (Omeprazole 20 Mg Capsule.Dr) 20 mg PO BID [facility] Last Admin: 03/31/22 09:27 Dose: 20 mg Pharmacy Consult (Consult Rx Perform Med Rec) 1 each MISCELLANE ONCE PRN PRN Reason: Consult order Prednisone (Prednisone 20 Mg Tablet) 40 mg PO DAILY [facility] Last Admin: 03/31/22 09:27 Dose: 40 mg Prednisone (Prednisone 20 Mg Tablet) 40 mg PO DAILY [facility] Last Admin: 03/31/22 10:56 Dose: 40 mg Sertraline HCl (Sertraline Hcl 50 Mg Tablet) 150 mg PO DAILY [facility] Trazodone HCl (Trazodone Hcl 50 Mg Tablet) 50 mg PO BEDTIME [facility] Home Medications Medication Instructions Recorded Confirmed Last Taken Type albuterol sulfate 90 mcg/actuation 2 puff inhalation QID PRN wheezing 02/05/20 03/26/22 02/05/20 History aerosol inhaler anastrozole 1 mg tablet 1 tab PO DAILY 02/05/20 03/26/22 02/03/20 History lisinopril 10 mg tablet 1 tab PO DAILY 02/05/20 03/26/22 02/03/20 08:00 History montelukast 10 mg tablet 1 tab PO BEDTIME 02/05/20 03/26/22 02/03/20 21:00 History omeprazole 20 mg capsule,delayed 1 cap PO BID 02/05/20 03/26/22 02/03/20 21:00 History release sertraline 100 mg tablet 1.5 tab PO DAILY 02/05/20 03/26/22 Unknown History hydroxyzine pamoate 25 mg capsule 1 cap PO BID PRN Anxiety 03/26/22 03/26/22 Unknown History multivitamin 1 tab PO DAILY 03/26/22 03/26/22 Unknown History trazodone 50 mg tablet 1 tab PO BEDTIME 03/26/22 03/26/22 Unknown History Physical Exam Vital Signs: Vital Signs: Last Vital Signs Temp 98.5 F 03/31/22 19:19 Pulse 72 03/31/22 20:09 Resp 15 03/31/22 20:09 BP 142/70 H 03/31/22 19:19 Pulse Ox 92 03/31/22 19:19 O2 Del Method 03/31/22 19:19 O2 Flow Rate 3 03/31/22 19:19 FiO2 35 03/30/22 14:00 BMI result Body Mass Index 36.0 General patient resting comfortably in no acute distress. Neck is supple no JVD. CVS regular rate rhythm, Respiratory lungs coarse breath sounds, no respiratory distress, + wheeze, no rhonchi. Gastrointestinal abdomen soft, nontender, bowel sounds audible. Extremities no clubbing, cyanosis or edema. Neuro nonfocal. Skin no rash Results Laboratory Findings 03/31/22 04:20 03/31/22 04:20 ABG, PT/INR, D-dimer: PT/INR, D-dimer PT 14.7 SEC (10.0-13.1) H 03/26/22 13:25 INR 1.3 (0.9-1.1) H 03/26/22 13:25 Abnormal lab findings: Abnormal Labs 03/26/22 03/26/22 03/26/22 13:24 13:25 13:25 WBC 14.1 H RBC Hgb Hct Plt Count Immature Gran % (Auto) 1.3 H Neut % (Auto) 84.5 H Lymph % (Auto) 6.9 L Lymph # (Auto) 1.0 L Abs Immat Gran (auto) 0.19 H Absolute Neuts (auto) 11.9 H Absolute Nucleated RBC Nucleated RBC % (auto) Neutrophils % (Manual) Band Neutrophils % Lymphocytes % (Manual) Abs Neuts (Manual) Lymphocytes # (Manual) PT 14.7 H INR 1.3 H VBG pH VBG HCO3 Chloride Carbon Dioxide BUN Random Glucose 154 H Calcium Phosphorus Total Bilirubin 1.7 H Direct Bilirubin 0.8 H Total Protein 5.9 L Albumin 3.3 L Random Vancomycin 03/26/22 03/26/22 03/27/22 13:29 18:50 00:14 WBC RBC Hgb Hct Plt Count Immature Gran % (Auto) Neut % (Auto) Lymph % (Auto) Lymph # (Auto) Abs Immat Gran (auto) Absolute Neuts (auto) Absolute Nucleated RBC Nucleated RBC % (auto) Neutrophils % (Manual) Band Neutrophils % Lymphocytes % (Manual) Abs Neuts (Manual) Lymphocytes # (Manual) PT INR VBG pH 7.29 L VBG HCO3 36 H 33 H 31 H Chloride Carbon Dioxide BUN Random Glucose Calcium Phosphorus Total Bilirubin Direct Bilirubin Total Protein Albumin Random Vancomycin 03/27/22 03/27/22 03/27/22 04:51 04:55 04:55 WBC RBC 3.94 L Hgb 11.9 L Hct 36.0 L Plt Count Immature Gran % (Auto) 1.8 H Neut % (Auto) 87.3 H Lymph % (Auto) 6.8 L Lymph # (Auto) 0.6 L Abs Immat Gran (auto) 0.17 H Absolute Neuts (auto) Absolute Nucleated RBC Nucleated RBC % (auto) Neutrophils % (Manual) Band Neutrophils % Lymphocytes % (Manual) Abs Neuts (Manual) Lymphocytes # (Manual) PT INR VBG pH VBG HCO3 34 H Chloride Carbon Dioxide BUN Random Glucose 211 H Calcium 8.3 L D Phosphorus 2.1 L Total Bilirubin Direct Bilirubin Total Protein Albumin 2.7 L Random Vancomycin 03/27/22 03/28/22 03/28/22 12:47 04:14 04:14 WBC 17.4 H RBC 4.13 L Hgb Hct Plt Count 405 H D Immature Gran % (Auto) 4.9 H Neut % (Auto) 84.5 H Lymph % (Auto) 4.4 L Lymph # (Auto) 0.8 L Abs Immat Gran (auto) 0.85 H Absolute Neuts (auto) 14.7 H Absolute Nucleated RBC 0.020 H Nucleated RBC % (auto) Neutrophils % (Manual) Band Neutrophils % Lymphocytes % (Manual) Abs Neuts (Manual) Lymphocytes # (Manual) PT INR VBG pH VBG HCO3 33 H Chloride Carbon Dioxide BUN 18 H Random Glucose 281 H Calcium Phosphorus Total Bilirubin Direct Bilirubin Total Protein Albumin 2.8 L Random Vancomycin 03/28/22 03/28/22 03/29/22 04:15 16:01 04:55 WBC RBC 3.80 L Hgb 11.3 L Hct 35.1 L Plt Count Immature Gran % (Auto) Neut % (Auto) Lymph % (Auto) Lymph # (Auto) Abs Immat Gran (auto) Absolute Neuts (auto) Absolute Nucleated RBC 0.030 H Nucleated RBC % (auto) 0.4 H Neutrophils % (Manual) 85 H Band Neutrophils % 7 H Lymphocytes % (Manual) 4 L Abs Neuts (Manual) Lymphocytes # (Manual) 0.3 L PT INR VBG pH VBG HCO3 37 H Chloride Carbon Dioxide BUN Random Glucose Calcium Phosphorus Total Bilirubin Direct Bilirubin Total Protein Albumin Random Vancomycin 12.3 L 03/29/22 03/29/22 03/29/22 04:55 05:00 10:03 WBC RBC Hgb Hct Plt Count Immature Gran % (Auto) Neut % (Auto) Lymph % (Auto) Lymph # (Auto) Abs Immat Gran (auto) Absolute Neuts (auto) Absolute Nucleated RBC Nucleated RBC % (auto) Neutrophils % (Manual) Band Neutrophils % Lymphocytes % (Manual) Abs Neuts (Manual) Lymphocytes # (Manual) PT INR VBG pH 7.46 H 7.45 H VBG HCO3 42 H 36 H Chloride Carbon Dioxide 32 H BUN 27 H Random Glucose 221 H Calcium Phosphorus Total Bilirubin Direct Bilirubin Total Protein Albumin 2.7 L Random Vancomycin 03/30/22 03/30/2223 04:35 04:35 04:38 WBC RBC Hgb Hct Plt Count Immature Gran % (Auto) Neut % (Auto) Lymph % (Auto) Lymph # (Auto) Abs Immat Gran (auto) Absolute Neuts (auto) Absolute Nucleated RBC 0.060 H Nucleated RBC % (auto) 0.8 H Neutrophils % (Manual) 74 H Band Neutrophils % 11 H Lymphocytes % (Manual) 5 L Abs Neuts (Manual) Lymphocytes # (Manual) 0.4 L PT INR VBG pH 7.53 H VBG HCO3 51 H Chloride 92 L Carbon Dioxide 42 H* D BUN 29 H Random Glucose 214 H Calcium Phosphorus Total Bilirubin Direct Bilirubin Total Protein Albumin Random Vancomycin 03/30/22 03/31/22 03/31/22 16:48 04:20 04:20 WBC 11.0 H RBC 4.10 L Hgb Hct Plt Count Immature Gran % (Auto) Neut % (Auto) Lymph % (Auto) Lymph # (Auto) Abs Immat Gran (auto) Absolute Neuts (auto) Absolute Nucleated RBC 0.030 H Nucleated RBC % (auto) 0.3 H Neutrophils % (Manual) 79 H Band Neutrophils % 8 H Lymphocytes % (Manual) 5 L Abs Neuts (Manual) 9.6 H Lymphocytes # (Manual) 0.6 L PT INR VBG pH 7.52 H VBG HCO3 47 H Chloride Carbon Dioxide 39 H BUN 27 H Random Glucose 173 H Calcium Phosphorus Total Bilirubin Direct Bilirubin Total Protein Albumin 3.1 L Random Vancomycin 03/31/22 04:52 WBC RBC Hgb Hct Plt Count Immature Gran % (Auto) Neut % (Auto) Lymph % (Auto) Lymph # (Auto) Abs Immat Gran (auto) Absolute Neuts (auto) Absolute Nucleated RBC Nucleated RBC % (auto) Neutrophils % (Manual) Band Neutrophils % Lymphocytes % (Manual) Abs Neuts (Manual) Lymphocytes # (Manual) PT INR VBG pH 7.47 H VBG HCO3 49 H Chloride Carbon Dioxide BUN Random Glucose Calcium Phosphorus Total Bilirubin Direct Bilirubin Total Protein Albumin Random Vancomycin Microbiology: Microbiology 03/26/22 13:24 Blood - Venous Blood Culture - Final No growth after 5 days. 03/26/22 13:34 Blood - Venous Blood Culture - Final Coag negative Staphylococcus Corynebacterium species 03/26/22 17:55 Sputum - Suctioned Gram Stain - Final 03/26/22 17:55 Sputum - Suctioned Sputum Culture - Final Streptococcus pneumoniae 03/27/22 07:14 Urine Catheterized - Pruitt Catheter Urine Culture - Final No growth. Assessment and Plan (1) COPD with exacerbation: Status: Acute (2) Acute on chronic respiratory failure with hypoxia and hypercapnia: Status: Acute (3) Pneumonia: Status: Acute Plan Continue BIPAP at night oxygen to keep pox 89-96% Diamox, monitor HCO3 continue CTX continue respiratory therapy Has evidence of chronic hypercarbic respiratory failure due to her advance COPD. She carries a poor prognosis and high readmission risk. She needs to start a non invasive ventilator to help improve her gas exchange and improve her prognosis. Therefore, decrease hospitalizations. She will need a non invasive ventilator through a local [employer] company. Time Spent With Patient Time: Total time managing care of this patient today ____ minutes. Procedures Date of Service Date of Service: 03/31/22
[2022-03-31] MEDS: Montelukast Sodium 10 MG TABLET PO (21:43)
[2022-04-01] VITALS (12 sets, daily range): BP systolic 119–184; BP diastolic 74–86; PULSE 64–89; RESP 15–20; TEMP 36.1–36.9; O2SAT 91–100; BMI 36.7; BMI 35.8
[2022-04-01] MEDS: acetaZOLAMIDE 250 MG TABLET PO (00:20)
[2022-04-01] MEDS: Heparin Sodium,Porcine 5,000 UNIT/ML VIAL 5000 UNIT SUBCUT (03:31)
[2022-04-01] MEDS: Acetaminophen 325 MG TABLET 650 MG PO (04:09)
--- NOTE | 2022-04-01 05:40 | MHC.PIE ---
P.UNABLE TO VOID I.UNABLE TO VOID,BLADDER SCAN 443.REPORTED TO MD JACOBS.STRAIGHT CATHED FOR 550 CC PER MD ORDER E.CONT TO MONITOR
[2022-04-01 06:42] LABS: Estimated Glomerular Filt Rate > 60
[2022-04-01] MEDS: Albuterol/Iprat 2.5/0.5MG 3 ML AMPUL.NEB INHALE ×3 (07:55→20:17)
[2022-04-01] MEDS: Multivitamin TABLET 1 TAB PO (08:55)
[2022-04-01] MEDS: Anastrozole 1 MG TABLET PO (08:55)
[2022-04-01] MEDS: Losartan Potassium 25 MG TABLET PO (08:55)
[2022-04-01] MEDS: Sertraline HCL 50 MG TABLET 150 MG PO (08:55)
[2022-04-01] MEDS: Omeprazole 20 MG CAPSULE.DR PO ×2 (08:56→20:06)
[2022-04-01] MEDS: predniSONE 20 MG TABLET 40 MG PO (08:57)
--- NOTE | 2022-04-01 09:46 | P.PNIM_ITS ---
Subjective Subjective Date of Service: 04/01/22 Interval History: weakness Physical Exam Vital Signs: Vital Signs: Last Vital Signs Temp 97 F 04/01/22 07:54 Pulse 64 04/01/22 07:54 Resp 19 04/01/22 07:55 BP 184/86 H 04/01/22 07:54 Pulse Ox 96 04/01/22 07:54 O2 Del Method 04/01/22 07:54 O2 Flow Rate 3 04/01/22 07:54 FiO2 35 03/30/22 14:00 BMI result Body Mass Index 35.8 General patient resting comfortably in no acute distress. Neck is supple no JVD. CVS regular rate rhythm, Respiratory lungs coarse breath sounds, no respiratory distress, + wheeze, no rhonchi. Gastrointestinal abdomen soft, nontender, bowel sounds audible. Extremities no clubbing, cyanosis or edema. Neuro nonfocal. Skin no rash Objective Data Active Medications Acetaminophen (Acetaminophen 325 Mg Tablet) 650 mg PO Q4H PRN PRN Reason: Pain, Mild (Pain Scale 1-3) Last Admin: 04/01/22 04:09 Dose: 650 mg Documented By: DONNIE Albuterol/Ipratropium (Albuterol/Iprat 2.5/0.5mg 3 Ml Ampul.Neb) 3 ml INHALE R Q4H WHILE AWAKE [facility] Last Admin: 04/01/22 07:55 Dose: 3 ml Documented By: MARLENE Anastrozole (Anastrozole 1 Mg Tablet) 1 mg PO DAILY [facility] Last Admin: 04/01/22 08:55 Dose: 1 mg Documented By: KURT Heparin Sodium (Porcine) (Heparin Sodium,Porcine 5,000 Unit/Ml Vial) 5,000 unit SUBCUT Q8H [facility] Last Admin: 04/01/22 03:31 Dose: 5,000 unit Documented By: DONNIE Ceftriaxone Sodium 2 gm/ (Sodium Chloride) 50 mls @ 100 mls/hr IV Q24H [facility] Last Infusion: 03/31/22 16:57 Dose: 0 mls/hr Documented By: VALENTINA Losartan Potassium (Losartan Potassium 25 Mg Tablet) 25 mg PO DAILY [facility]; Protocol Last Admin: 04/01/22 08:55 Dose: 25 mg Documented By: KURT Melatonin (Melatonin 3 Mg Tablet) 3 mg PO BEDTIME PRN PRN Reason: insomnia Montelukast Sodium (Montelukast Sodium 10 Mg Tablet) 10 mg PO BEDTIME [facility] Last Admin: 03/31/22 21:43 Dose: 10 mg Documented By: KARIS Multivitamins/Vitamin C (Multivitamin Tablet) 1 tab PO DAILY [facility] Last Admin: 04/01/22 08:55 Dose: 1 tab Documented By: KURT Omeprazole (Omeprazole 20 Mg Capsule.) 20 mg PO BID [facility] Last Admin: 04/01/22 08:56 Dose: 20 mg Documented By: KURT Pharmacy Consult (Consult Rx Perform Med Rec) 1 each MISCELLANE ONCE PRN PRN Reason: Consult order Prednisone (Prednisone 20 Mg Tablet) 40 mg PO DAILY [facility] Last Admin: 04/01/22 08:57 Dose: 40 mg Documented By: KURT Sertraline HCl (Sertraline Hcl 50 Mg Tablet) 150 mg PO DAILY [facility] Last Admin: 04/01/22 08:55 Dose: 150 mg Documented By: KURT Trazodone HCl (Trazodone Hcl 50 Mg Tablet) 50 mg PO BEDTIME [facility] Last Admin: 04/01/22 00:24 Dose: Not Given Documented By: DONNIE Non-Admin Reason: Patient Refused Labs 03/31/22 04:20 04/01/22 06:08 Labs: Laboratory Results - last 24 hr 04/01/22 06:08 Estim Creat Clear Calc 105.0 Estimated GFR > 60 Microbiology Microbiology Results: Microbiology 03/26/22 13:24 Blood Culture - Final Blood - Venous No growth after 5 days. Assessment and Plan (1) COPD with exacerbation: Status: Acute Plan 62f PMH chronic hypoxic and hypercapneic respiratory failure due to copd, obesi ty, breast ca, htn, mood disorder presented with sob, required intubation and icu admission, found to have strep pneumo pneumonia, now extubed and downgraded to medical floor. Acute on chronic hypoxic and hypercapnic respiratory failure steroids, nebs, singulair, bipap at night pulm following obesity weight loss breast ca anastrazole htn lisinopril changed to losartan to avoid airway irritation mood disorder sertraline dvt prophylaxis - lovenox full code reason for continued hospitalization: weakness Time Spent With Patient Time: Total time managing care of this patient today ____ minutes. Quality Stroke Does the patient have a stroke diagnosis?: No VTE Prior VTE?: No VTE Risk Level:: Medical - moderate - high VTE Device Contraindication: N/A - Device Ordered VTE Drug Contraindication: N/A - Med Ordered
[2022-04-01] MEDS: cefTRIAXone sodium 2 GM in 0.9 % Sodium Chloride 50 ML IV (15:45)
--- NOTE | 2022-04-01 16:55 | PC.NURSE ---
pt is due to void at 2135 03/31/22. pt unable to urinate during this shift, did a bladder scan for [address] Vargas notified. Straight cath was ordered. completed at 1650 with 900ml dark yellow urine out put. pt is due to void at 2250 04/01/22
[2022-04-01] MEDS: Enoxaparin Sodium 40 MG/0.4 ML SYRINGE SUBCUT (17:57)
[2022-04-01] MEDS: Montelukast Sodium 10 MG TABLET PO (20:06)
--- NOTE | 2022-04-01 22:49 | PC.NURSE ---
patient is not able to void on own, reports abd discomfort associated with urinary retention. Bladder scanned this time for 320 ml, arizmendi catheter reinserted.Dr Nolasco aware.
--- NOTE | 2022-04-01 23:29 | PC.RT ---
Pt seen for NOC CPAP and refused. RN aware
[2022-04-02] VITALS (8 sets, daily range): BP systolic 124–148; BP diastolic 62–86; PULSE 67–101; RESP 15–20; TEMP 36.1–37.1; O2SAT 92–97
[2022-04-02 07:17] LABS: Hematocrit 41.2 % (37.0-47.0); Hemoglobin 13.1 g/dl (12.0-16.0); Mean Corpuscular HGB Conc 31.8 g/dl (31.0-35.0); Mean Corpuscular Hemoglobin 29.6 pg (27.0-33.0); Mean Corpuscular Volume 93.2 fL (80.0-98.0); Mean Platelet Volume 10.3 fL (9.4-12.3); Platelet Count 309 X10*3/uL (160-400); Red Blood Count 4.42 X10*6/uL (4.20-5.50); Red Cell Distribution Width 12.2 % (11.0-16.0); White Blood Count 11.2 X10*3/uL (4.8-10.8)
[2022-04-02 07:30] LABS: Alanine Aminotransferase 110 U/L (0-31); Alkaline Phosphatase 65 U/L (39-117); Anion Gap 12 (12-20); Aspartate Amino Transferase 43 U/L (5-31); Bilirubin Direct 0.2 mg/dL (0.0-0.5); Bilirubin Total 0.6 mg/dL (0.0-1.0); Blood Urea Nitrogen 26 mg/dL (9-16); Calcium 8.8 mg/dL (8.4-10.2); Carbon Dioxide 35 mmol/L (22-29); Chloride 99 mmol/L (96-108); Creatinine Clr Calc Pharmacy 114.2; Estimated Glomerular Filt Rate > 60; Glucose Fasting 97 mg/dL (60-99); Magnesium 2.2 mg/dL (1.6-2.6); Potassium 3.8 mmol/L (3.3-5.1); Sodium 142 mmol/L (135-145)
[2022-04-02] MEDS: Albuterol/Iprat 2.5/0.5MG 3 ML AMPUL.NEB INHALE (07:41)
[2022-04-02] MEDS: Sertraline HCL 50 MG TABLET 150 MG PO (08:14)
[2022-04-02] MEDS: Omeprazole 20 MG CAPSULE.DR PO ×2 (08:14→21:34)
[2022-04-02] MEDS: predniSONE 20 MG TABLET 40 MG PO (08:15)
[2022-04-02] MEDS: Multivitamin TABLET 1 TAB PO (08:16)
[2022-04-02] MEDS: Anastrozole 1 MG TABLET PO (08:17)
[2022-04-02] MEDS: Losartan Potassium 25 MG TABLET PO (08:17)
--- NOTE | 2022-04-02 09:49 | P.PNIM_ITS ---
Subjective Subjective Date of Service: 04/02/22 Interval History: weakness Physical Exam Vital Signs: Vital Signs: Last Vital Signs Temp 98.8 F 04/02/22 07:11 Pulse 67 04/02/22 07:43 Resp 18 04/02/22 07:43 BP 148/86 H 04/02/22 07:11 Pulse Ox 93 04/02/22 07:11 O2 Del Method 04/02/22 07:11 O2 Flow Rate 3.5 04/02/22 07:11 FiO2 35 03/30/22 14:00 BMI result Body Mass Index 35.8 General patient resting comfortably in no acute distress. Neck is supple no JVD. CVS regular rate rhythm, Respiratory lungs coarse breath sounds, no respiratory distress, + wheeze, no rhonchi. Gastrointestinal abdomen soft, nontender, bowel sounds audible. Extremities no clubbing, cyanosis or edema. Neuro nonfocal. Skin no rash Objective Data Active Medications Acetaminophen (Acetaminophen 325 Mg Tablet) 650 mg PO Q4H PRN PRN Reason: Pain, Mild (Pain Scale 1-3) Last Admin: 04/01/22 04:09 Dose: 650 mg Documented By: DONNIE Albuterol/Ipratropium (Albuterol/Iprat 2.5/0.5mg 3 Ml Ampul.Neb) 3 ml INHALE R Q4H WHILE AWAKE [facility] Last Admin: 04/02/22 07:41 Dose: 3 ml Documented By: ISABELLE Anastrozole (Anastrozole 1 Mg Tablet) 1 mg PO DAILY [facility] Last Admin: 04/02/22 08:17 Dose: 1 mg Documented By: HOMER Enoxaparin Sodium (Enoxaparin Sodium 40 Mg/0.4 Ml Syringe) 40 mg SUBCUT Q24H [facility] Last Admin: 04/01/22 17:57 Dose: 40 mg Documented By: KURT Ceftriaxone Sodium 2 gm/ (Sodium Chloride) 50 mls @ 100 mls/hr IV Q24H [facility] Last Infusion: 04/01/22 16:15 Dose: 0 mls/hr Documented By: KURT Losartan Potassium (Losartan Potassium 25 Mg Tablet) 25 mg PO DAILY [facility]; Protocol Last Admin: 04/02/22 08:17 Dose: 25 mg Documented By: HOMER Melatonin (Melatonin 3 Mg Tablet) 3 mg PO BEDTIME PRN PRN Reason: insomnia Montelukast Sodium (Montelukast Sodium 10 Mg Tablet) 10 mg PO BEDTIME [facility] Last Admin: 04/01/22 20:06 Dose: 10 mg Documented By: GLENNY Multivitamins/Vitamin C (Multivitamin Tablet) 1 tab PO DAILY [facility] Last Admin: 04/02/22 08:16 Dose: 1 tab Documented By: HOMER Omeprazole (Omeprazole 20 Mg Capsule.) 20 mg PO BID [facility] Last Admin: 04/02/22 08:14 Dose: 20 mg Documented By: HOMER Pharmacy Consult (Consult Rx Perform Med Rec) 1 each MISCELLANE ONCE PRN PRN Reason: Consult order Prednisone (Prednisone 20 Mg Tablet) 40 mg PO DAILY [facility] Last Admin: 04/02/22 08:15 Dose: 40 mg Documented By: HOMER Sertraline HCl (Sertraline Hcl 50 Mg Tablet) 150 mg PO DAILY [facility] Last Admin: 04/02/22 08:14 Dose: 150 mg Documented By: HOMER Trazodone HCl (Trazodone Hcl 50 Mg Tablet) 50 mg PO BEDTIME [facility] Last Admin: 04/01/22 20:06 Dose: Not Given Documented By: GLENNY Non-Admin Reason: Patient Refused Labs 04/02/22 06:39 04/02/22 06:39 Labs: Laboratory Results - last 24 hr 04/02/22 04/02/22 06:39 06:39 MCV 93.2 MCH 29.6 MCHC 31.8 RDW 12.2 Plt Count 309 MPV 10.3 Absolute Nucleated RBC 0.000 Nucleated RBC % (auto) 0.0 Anion Gap 12 Estim Creat Clear Calc 114.2 Estimated GFR > 60 Fasting Glucose 97 Calcium 8.8 Magnesium 2.2 Total Bilirubin 0.6 Direct Bilirubin 0.2 AST 43 H ALT 110 H Alkaline Phosphatase 65 Total Protein 5.0 L Albumin 3.0 L Assessment and Plan (1) COPD with exacerbation: Status: Acute Plan 62f PMH chronic hypoxic and hypercapneic respiratory failure due to copd, obesity, breast ca, htn, mood disorder presented with sob, required intubation and icu admission, found to have strep pneumo pneumonia, now extubed and downgraded to medical floor. Acute on chronic hypoxic and hypercapnic respiratory failure steroids, nebs, singulair, bipap at night pulm appreciated urinary retention failed TOV keep arizmendi for now, would try again when more ambulatory (at [facility]) obesity weight loss breast ca anastrazole htn lisinopril changed to losartan to avoid airway irritation mood disorder sertraline dvt prophylaxis - lovenox full code reason for continued hospitalization: weakness, awaiting pt Time Spent With Patient Time: Total time managing care of this patient today ____ minutes. Quality Stroke Does the patient have a stroke diagnosis?: No VTE Prior VTE?: No VTE Risk Level:: Medical - moderate - high VTE Device Contraindication: N/A - Device Ordered VTE Drug Contraindication: N/A - Med Ordered
[2022-04-02] MEDS: Enoxaparin Sodium 40 MG/0.4 ML SYRINGE SUBCUT (17:09)
[2022-04-02] MEDS: cefTRIAXone sodium 2 GM in 0.9 % Sodium Chloride 50 ML IV (17:10)
[2022-04-02] MEDS: Acetaminophen 325 MG TABLET 650 MG PO (17:12)
[2022-04-02] MEDS: Montelukast Sodium 10 MG TABLET PO (21:34)
[2022-04-02] MEDS: Melatonin 3 MG TABLET PO (21:37)
--- NOTE | 2022-04-02 23:18 | PC.RT ---
Pt refused CPAP for NOC support.
[2022-04-03] VITALS (7 sets, daily range): BP systolic 118–148; BP diastolic 60–72; PULSE 71–96; RESP 15–20; TEMP 36.1–37.1; O2SAT 91–99; BMI 36.3
[2022-04-03 06:40] LABS: Creatinine Clr Calc Pharmacy 116.2; Estimated Glomerular Filt Rate > 60
[2022-04-03] MEDS: Multivitamin TABLET 1 TAB PO (09:13)
[2022-04-03] MEDS: Anastrozole 1 MG TABLET PO (09:13)
[2022-04-03] MEDS: Sertraline HCL 50 MG TABLET 150 MG PO (09:13)
[2022-04-03] MEDS: Omeprazole 20 MG CAPSULE.DR PO ×2 (09:14→21:28)
[2022-04-03] MEDS: predniSONE 20 MG TABLET 40 MG PO (09:14)
[2022-04-03] MEDS: Losartan Potassium 25 MG TABLET PO (09:14)
--- NOTE | 2022-04-03 09:37 | PM.DS ---
DS: Providers Provider Date of Service: 04/03/22 Date of admission: 03/26/22 18:01 Primary care physician: Carmen Burk NP Consults: 03/31/22 10:52 Consult to Pulmonology Routine Consulting Provider: Jose Luis Castillo Reason for consultation: hypercapnea DS: Diagnosis Discharge Diagnosis (1) COPD with exacerbation: Status: Acute DS: Summary Hospital Course Hospital Course: from initial hpi: 62-year-old female with underlying COPD presents with increasing shortness of breath and by the initial blood gas and acute on chronic hypercarbic and hypoxic issue with what looks like right lower lobe infiltrate and possible small co associated pleural effusion but the CT scan which had a lot of movement artifact shows multilobar mostly right-sided infiltrate appears predominantly interstitial and negative for influenza and COVID thus far but over the 2 hours that she has been on the BiPAP a clearly becoming increasingly lethargic confused work of breathing and no better respiratory rate is in the 40s accessory muscle and diaphragmatic effort is extreme and with lost mental status this is a strong presumption that the pCO2 is more elevated she required acute intubation at that point which was done with etomidate and rocuronium without complication easy visualization of the vocal cords and a sputum specimen is being sent and she will be covered for severe community-acquired multilobar pneumonia hospital course: Patient was admitted for acute on chronic hypoxic and hypercapnic respiratory failure requiring intubation in ICU admission. Was found to have Streptococcus pneumococcal pneumonia. Was given steroids and antibiotics and eventually extubated and weaned down to baseline oxygen. She was seen by Pulmonary recommended noninvasive positive pressure ventilation at night, until home equipment set up with use cpap at night setting of 5 . Course was complicated by metabolic encephalopathy due to ICU delirium. Patient is much improved at time of discharge. Course was complicated by urinary retention, patient failed trial of voiding and will be discharged with [place] catheter, trial avoid should be attempted again once ambulating better. For obesity weight loss recommended. For breast cancer anastrozole was continue. Hypertension her lisinopril was changed to losartan to avoid any airway irritation. For mood disorder sertraline was continued. Patient is feeling better will be discharged to skilled nurse facility for short-term rehab. She will continue short course of prednisone and amoxicillin. Time Spent with Patient Time attestation: Total time managing care of this patient today ____ minutes. Discharge coordination time: Greater than 30 minutes Quality: Safe Use of Opioids Does Pt have an Active Cancer Diagnosis on the Problem List?: No Quality: Stroke Does the patient have a stroke diagnosis?: No Physical Exam Vital Signs: Vital Signs: Last Vital Signs Temp 97.4 F 04/03/22 07:51 Pulse 71 04/03/22 07:51 Resp 20 04/03/22 07:51 BP 118/60 04/03/22 07:51 Pulse Ox 92 04/03/22 07:51 O2 Del Method 04/03/22 07:51 O2 Flow Rate 2 04/03/22 07:51 FiO2 35 03/30/22 14:00 BMI result Body Mass Index 36.3 General patient resting comfortably in no acute distress. Neck is supple no JVD. CVS regular rate rhythm, cta bilateral lungs Gastrointestinal abdomen soft, nontender, bowel sounds audible. Extremities no clubbing, cyanosis or edema. Neuro nonfocal. Skin no rash DS: Data Data Completed and Pending Labs on day of discharge: Laboratory Results - last 24 hr 04/03/22 05:43 Creatinine 0.56 Estim Creat Clear Calc 116.2 Estimated GFR > 60 Discharge Plan Discharge Anticipated Discharge Date/Time: 04/03/22 09:34 Patient Disposition: Xfer SNF Discharge Diagnosis: copd Referrals: Carmen Burk, KAYLYNN [Primary Care Provider] - 1 Week Discharge Medications: New amoxicillin 875 mg tablet 875 mg PO BID Qty: 10 0RF prednisone 20 mg Tablet 40 mg PO DAILY Qty: 0 0RF losartan 25 mg Tablet 25 mg PO DAILY Qty: 0 0RF Protocol: Hold for SBP< HOLD for SBP < : 90 Continued anastrozole 1 mg tablet 1 tab PO DAILY sertraline 100 mg tablet 1.5 tab PO DAILY omeprazole 20 mg capsule,delayed release(DR/EC) 1 cap PO BID montelukast 10 mg tablet 1 tab PO BEDTIME albuterol sulfate 90 mcg/actuation HFA aerosol inhaler 2 puff inhalation QID PRN (Reason: wheezing) multivitamin Tablet 1 tab PO DAILY trazodone 50 mg tablet 1 tab PO BEDTIME hydroxyzine pamoate 25 mg capsule 1 cap PO BID PRN (Reason: Anxiety) Discontinued lisinopril 10 mg tablet 1 tab PO DAILY Discharge Orders: Discharge Order (Routine); Ordered 04/03/22 Ordered By: Haile Vargas Diet: Advance to usual diet Activity on Discharge: As tolerated Stand Alone Forms: Patient Portal Discharge page Care Plan Goals: recovery Health Concerns: copd, pna, urinary retention Plan of Treatment: meds as prescribed, trial of voiding once ambulating Assessment: see above
--- NOTE | 2022-04-03 12:19 | HO.PM.IMPN ---
Subjective Subjective Date of Service: 04/03/22 Interval History: weakness Physical Exam Vital Signs: Vital Signs: Last Vital Signs Temp 96.9 F 04/03/22 11:15 Pulse 82 04/03/22 11:15 Resp 20 04/03/22 11:15 BP 118/68 04/03/22 11:15 Pulse Ox 93 04/03/22 11:15 O2 Del Method 04/03/22 11:15 O2 Flow Rate 2 04/03/22 07:51 FiO2 35 03/30/22 14:00 BMI result Body Mass Index 36.3 General patient resting comfortably in no acute distress. Neck is supple no JVD. CVS regular rate rhythm, cta bilateral lungs Gastrointestinal abdomen soft, nontender, bowel sounds audible. Extremities no clubbing, cyanosis or edema. Neuro nonfocal. Skin no rash Objective Data Active Medications Acetaminophen (Acetaminophen 325 Mg Tablet) 650 mg PO Q4H PRN PRN Reason: Pain, Mild (Pain Scale 1-3) Last Admin: 04/02/22 17:12 Dose: 650 mg Documented By: THOM Anastrozole (Anastrozole 1 Mg Tablet) 1 mg PO DAILY [facility] Last Admin: 04/03/22 09:13 Dose: 1 mg Documented By: ECHO Enoxaparin Sodium (Enoxaparin Sodium 40 Mg/0.4 Ml Syringe) 40 mg SUBCUT Q24H [facility] Last Admin: 04/02/22 17:09 Dose: 40 mg Documented By: THOM Ceftriaxone Sodium 2 gm/ (Sodium Chloride) 50 mls @ 100 mls/hr IV Q24H [facility] Last Infusion: 04/02/22 18:16 Dose: 0 mls/hr Documented By: THOM Losartan Potassium (Losartan Potassium 25 Mg Tablet) 25 mg PO DAILY [facility]; Protocol Last Admin: 04/03/22 09:14 Dose: 25 mg Documented By: ECHO Melatonin (Melatonin 3 Mg Tablet) 3 mg PO BEDTIME PRN PRN Reason: insomnia Last Admin: 04/02/22 21:37 Dose: 3 mg Documented By: DEB Montelukast Sodium (Montelukast Sodium 10 Mg Tablet) 10 mg PO BEDTIME [facility] Last Admin: 04/02/22 21:34 Dose: 10 mg Documented By: DEB Multivitamins/Vitamin C (Multivitamin Tablet) 1 tab PO DAILY [facility] Last Admin: 04/03/22 09:13 Dose: 1 tab Documented By: ECHO Omeprazole (Omeprazole 20 Mg Socrates.) 20 mg PO BID [facility] Last Admin: 04/03/22 09:14 Dose: 20 mg Documented By: ECHO Pharmacy Consult (Consult Rx Perform Med Rec) 1 each MISCELLANE ONCE PRN PRN Reason: Consult order Prednisone (Prednisone 20 Mg Tablet) 40 mg PO DAILY [facility] Last Admin: 04/03/22 09:14 Dose: 40 mg Documented By: ECHO Sertraline HCl (Sertraline Hcl 50 Mg Tablet) 150 mg PO DAILY [facility] Last Admin: 04/03/22 09:13 Dose: 150 mg Documented By: ECHO Trazodone HCl (Trazodone Hcl 50 Mg Tablet) 50 mg PO BEDTIME [facility] Last Admin: 04/02/22 21:35 Dose: Not Given Documented By: DEB Non-Admin Reason: pt refused, reports legs hurt Labs 04/02/22 06:39 04/03/22 05:43 Labs: Laboratory Results - last 24 hr 04/03/22 05:43 Estim Creat Clear Calc 116.2 Estimated GFR > 60 Assessment and Plan (1) COPD with exacerbation: Status: Acute Plan 62f PMH chronic hypoxic and hypercapneic respiratory failure due to copd, obesity, breast ca, htn, mood disorder presented with sob, required intubation and icu admission, found to have strep pneumo pneumonia, now extubed and downgraded to medical floor. Acute on chronic hypoxic and hypercapnic respiratory failure steroids, nebs, singulair, bipap at night pulm appreciated urinary retention failed TOV keep arizmendi for now, would try again when more ambulatory (at [facility]) obesity weight loss breast ca anastrazole htn lisinopril changed to losartan to avoid airway irritation mood disorder sertraline dvt prophylaxis - lovenox full code reason for continued hospitalization: weakness, awaiting placement Time Spent With Patient Time: Total time managing care of this patient today ____ minutes. Quality Stroke Does the patient have a stroke diagnosis?: No VTE Prior VTE?: No VTE Risk Level:: Medical - moderate - high VTE Device Contraindication: N/A - Device Ordered VTE Drug Contraindication: N/A - Med Ordered
[2022-04-03 13:00] LABS: COVID-19 Test Negative (Negative); IDNOW Serial# 55D5AD1C
[2022-04-03] MEDS: cefTRIAXone sodium 2 GM in 0.9 % Sodium Chloride 50 ML IV (17:10)
[2022-04-03] MEDS: Enoxaparin Sodium 40 MG/0.4 ML SYRINGE SUBCUT (17:10)
--- NOTE | 2022-04-03 20:04 | PC.RT ---
Pt refused CPAP for NOC support tonight. pt states she slept well last night without it
[2022-04-03] MEDS: Montelukast Sodium 10 MG TABLET PO (21:28)
[2022-04-04 04:00] VITALS: BP 126/71; PULSE 77; RESP 21; TEMP 36.7; O2SAT 92
[2022-04-04 07:36] VITALS: BP 140/70; PULSE 81; RESP 20; TEMP 36.2; O2SAT 93
[2022-04-04 07:58] VITALS: PULSE 77; RESP 18; O2SAT 94
[2022-04-04] MEDS: Multivitamin TABLET 1 TAB PO (08:15)
[2022-04-04] MEDS: Losartan Potassium 25 MG TABLET PO (08:15)
[2022-04-04] MEDS: predniSONE 20 MG TABLET 40 MG PO (08:16)
[2022-04-04] MEDS: Anastrozole 1 MG TABLET PO (08:17)
[2022-04-04] MEDS: Sertraline HCL 50 MG TABLET 150 MG PO (08:17)
[2022-04-04] MEDS: Omeprazole 20 MG CAPSULE.DR PO (08:18)
--- NOTE | 2022-04-04 09:48 | HO.PM.IMPN ---
Subjective Subjective Date of Service: 04/04/22 Interval History: weakness Physical Exam Vital Signs: Vital Signs: Last Vital Signs Temp 97.2 F 04/04/22 07:36 Pulse 77 04/04/22 07:58 Resp 18 04/04/22 07:58 BP 140/70 H 04/04/22 07:36 Pulse Ox 93 04/04/22 07:36 O2 Del Method 04/04/22 07:36 O2 Flow Rate 2 04/04/22 07:36 FiO2 35 03/30/22 14:00 BMI result Body Mass Index 36.3 General patient resting comfortably in no acute distress. Neck is supple no JVD. CVS regular rate rhythm, cta bilateral lungs Gastrointestinal abdomen soft, nontender, bowel sounds audible. Extremities no clubbing, cyanosis or edema. Neuro nonfocal. Skin no rash Objective Data Active Medications Acetaminophen (Acetaminophen 325 Mg Tablet) 650 mg PO Q4H PRN PRN Reason: Pain, Mild (Pain Scale 1-3) Last Admin: 04/02/22 17:12 Dose: 650 mg Documented By: THOM Anastrozole (Anastrozole 1 Mg Tablet) 1 mg PO DAILY [facility] Last Admin: 04/04/22 08:17 Dose: 1 mg Documented By: ECHO Albuterol Sulfate 2.5 mg/ (Ipratropium [place] 0.5 mg) 0 mg INHALE RQ4H WHILE AWAKE [facility] Last Admin: 04/04/22 07:57 Dose: 2.5 each Documented By: ABBY Enoxaparin Sodium (Enoxaparin Sodium 40 Mg/0.4 Ml Syringe) 40 mg SUBCUT Q24H [facility] Last Admin: 04/03/22 17:10 Dose: 40 mg Documented By: ECHO Ceftriaxone Sodium 2 gm/ (Sodium Chloride) 50 mls @ 100 mls/hr IV Q24H [facility] Last Infusion: 04/03/22 17:55 Dose: 0 mls/hr Documented By: ECHO Losartan Potassium (Losartan Potassium 25 Mg Tablet) 25 mg PO DAILY [facility]; Protocol Last Admin: 04/04/22 08:15 Dose: 25 mg Documented By: ECHO Melatonin (Melatonin 3 Mg Tablet) 3 mg PO BEDTIME PRN PRN Reason: insomnia Last Admin: 04/02/22 21:37 Dose: 3 mg Documented By: DEB Montelukast Sodium (Montelukast Sodium 10 Mg Tablet) 10 mg PO BEDTIME [facility] Last Admin: 04/03/22 21:28 Dose: 10 mg Documented By: NAHUM Multivitamins/Vitamin C (Multivitamin Tablet) 1 tab PO DAILY [facility] Last Admin: 04/04/22 08:15 Dose: 1 tab Documented By: ECHO Omeprazole (Omeprazole 20 Mg Capsule.Dr) 20 mg PO BID [facility] Last Admin: 04/04/22 08:18 Dose: 20 mg Documented By: ECHO Pharmacy Consult (Consult Rx Perform Med Rec) 1 each MISCELLANE ONCE PRN PRN Reason: Consult order Prednisone (Prednisone 20 Mg Tablet) 40 mg PO DAILY [facility] Last Admin: 04/04/22 08:16 Dose: 40 mg Documented By: ECHO Sertraline HCl (Sertraline Hcl 50 Mg Tablet) 150 mg PO DAILY [facility] Last Admin: 04/04/22 08:17 Dose: 150 mg Documented By: ECHO Trazodone HCl (Trazodone Hcl 50 Mg Tablet) 50 mg PO BEDTIME [facility] Last Admin: 04/03/22 21:38 Dose: Not Given Documented By: NAHUM Non-Admin Reason: Patient Refused Labs 04/02/22 06:39 04/03/22 05:43 Labs: Laboratory Results - last 24 hr 04/03/22 12:28 COVID-19 ([facility]) Negative COVID-19 Clin Com See Note Assessment and Plan (1) COPD with exacerbation: Status: Acute Plan 62f PMH chronic hypoxic and hypercapneic respiratory failure due to copd, obesity, breast ca, htn, mood disorder presented with sob, required intubation and icu admission, found to have strep pneumo pneumonia, now extubed and downgraded to medical floor. Acute on chronic hypoxic and hypercapnic respiratory failure steroids, nebs, singulair, bipap at night pulm appreciated urinary retention failed TOV keep arizmendi for now, would try again when more ambulatory (at [facility]) obesity weight loss breast ca anastrazole htn lisinopril changed to losartan to avoid airway irritation mood disorder sertraline dvt prophylaxis - lovenox full code reason for continued hospitalization: weakness, awaiting placement Time Spent With Patient Time: Total time managing care of this patient today ____ minutes. Quality Stroke Does the patient have a stroke diagnosis?: No VTE Prior VTE?: No VTE Risk Level:: Medical - moderate - high VTE Device Contraindication: N/A - Device Ordered VTE Drug Contraindication: N/A - Med Ordered
--- NOTE | 2022-04-04 10:57 | MHC.CM.PN ---
pt dcd to [facility] message left for dgter ere same
[2022-04-04 11:21] VITALS: PULSE 80; RESP 18; O2SAT 95
[2022-04-04 11:36] VITALS: BP 128/64; PULSE 84; RESP 20; TEMP 36.1; O2SAT 93
[2022-04-04] MEDS: cefTRIAXone sodium 2 GM in 0.9 % Sodium Chloride 50 ML IV (13:40)
[2022-04-04 15:06] VITALS: PULSE 98; RESP 18; O2SAT 92
== END 2022-04-04 15:49 | disposition skilled nursing facility (03) | DRG 208 ==
LOC: HO.ED 14:16 → HO.EDOVER 18:38 → HO.ICU 18:41 → HO.IMC 03-31 09:04
PROVIDERS: Nurse Practitioner Family; Admitting Provider Internal Medicine Cardiovascular Disease; Emergency Provider Emergency Medicine; PCP Nurse Practitioner Family; Visit Provider Internal Medicine
DX: J13 Pneumonia due to Streptococcus pneumoniae (principal); J96.21 Acute and chronic respiratory failure with hypoxia; J96.22 Acute and chronic respiratory failure with hypercapnia; J44.0 Chronic obstructive pulmonary disease with (acute) lower respiratory infection; J91.8 Pleural effusion in other conditions classified elsewhere; J44.1 Chronic obstructive pulmonary disease with (acute) exacerbation; I10 Essential (primary) hypertension; C50.919 Malignant neoplasm of unspecified site of unspecified female breast; R33.9 Retention of urine, unspecified; E66.01 Morbid (severe) obesity due to excess calories; F39 Unspecified mood [affective] disorder; Z68.36 Body mass index [BMI] 36.0-36.9, adult; Z99.81 Dependence on supplemental oxygen; Z20.822 Contact with and (suspected) exposure to COVID-19; Z88.2 Allergy status to sulfonamides; Z88.5 Allergy status to narcotic agent; Z88.8 Allergy status to other drugs, medicaments and biological substances; Z79.811 Long term (current) use of aromatase inhibitors; Z79.899 Other long term (current) drug therapy
CPT/HCPCS: 36415; 71045; 71275; 80048; 80076; 80202; 82040; 82077; 82565; 82803; 83605; 83735; 83880; 84100; 84484; 85007; 85025; 85027; 85379; 85610; 85730; 87040; 87070; 87077; 87086; 87147; 87186; 87205; 87502; 87633; 87635; 93005; 94002; 94003; 94640; 94660; 94799; 97162; 97530; 99285; C1758; J0456; J0696; J1643; J1650; J1940; J1956; J2020; J2060; J2930; J3371; J3475; P9047; Q9967

== ENCOUNTER 2023-06-11 02:29 | Inpatient (IN) | payer OTHER, SELFPAY ==
[2023-06-11] VITALS (22 sets, daily range): BP systolic 112–191; BP diastolic 53–84; PULSE 76–123; RESP 18–28; TEMP 36.1–39.3; O2SAT 88–99; BMI 37.7
--- NOTE | 2023-06-11 | ECG_ITS ---
Test Reason : SOB Blood Pressure : / mmHG Vent. Rate : 116 BPM Atrial Rate : 116 BPM P-R Int : 188 ms QRS Dur : 066 ms QT Int : 318 ms P-R-T Axes : 078 -45 039 degrees QTc Int : 442 ms Sinus tachycardia Biatrial enlargement Left axis deviation Nonspecific T wave abnormality Abnormal ECG When compared with ECG of 26-MAR-2022 13:57, No significant changes seen Referred By: Generic ED Physician Electronically Signed By:SARIAH SAUCEDA
--- NOTE | ~2023-06-11 | XR_ITS ---
EXAMINATION: XR CHEST CLINICAL INFORMATION: Dyspnea COMPARISON: 03/26/2022 TECHNIQUE: Frontal view of the chest was obtained. FINDINGS: Lung volumes are symmetric. There are relatively streaky bibasilar opacities. No evidence of pneumothorax. Trace right pleural effusion may be present. The cardiomediastinal contour is unremarkable. No acute osseous findings are seen. XR/XR chest 1V IMPRESSION: Streaky bibasilar opacities suggesting atelectasis versus possible developing consolidation. Possible trace right pleural effusion.
[2023-06-11] MEDS: 0.9 % Sodium Chloride 1,000 ML 999 ML IV (02:59)
[2023-06-11] MEDS: Albuterol Sulfate 7.5 MG, Albuterol Sulfate (0.083%) 2.5 MG 10 MG INHALE (03:04)
[2023-06-11] MEDS: cefTRIAXone sodium 1 GM in 0.9 % Sodium Chloride 50 ML IV (03:08)
[2023-06-11] MEDS: Acetaminophen 325 MG TABLET 650 MG PO ×2 (03:08→13:32)
[2023-06-11 03:11] LABS: Basophils Percent Auto 0.2 % (0-2); Eosinophils Absolute Auto 0.1 X10*3/uL (0.0-0.4); Eosinophils Percent Auto 1.1 % (0-4); Hematocrit 46.4 % (37.0-47.0); Hemoglobin 15.1 g/dl (12.0-16.0); Imm Gran Abs Auto 0.01 X10*3/uL (0.00-0.03); Imm Gran Pct Auto 0.2 % (0.0-0.4); Lymphocytes Absolute Auto 1.8 X10*3/uL (1.2-4.9); Lymphocytes Percent Auto 28.6 % (20-40); MANUAL DIFF FLAG NO; Mean Corpuscular HGB Conc 32.5 g/dl (31.0-35.0); Mean Corpuscular Hemoglobin 29.5 pg (27.0-33.0); Mean Corpuscular Volume 90.8 fL (80.0-98.0); Mean Platelet Volume 9.7 fL (9.4-12.3); Monocytes Absolute Auto 0.5 X10*3/uL (0.1-1.2); Monocytes Percent Auto 7.8 % (2-11); Neutrophils Absolute Auto 3.9 x10*3/uL (2.0-8.3); Neutrophils Percent Auto 62.1 % (45-73); Platelet Count 146 X10*3/uL (160-400); Red Blood Count 5.11 X10*6/uL (4.20-5.50); Red Cell Distribution Width 11.9 % (11.0-16.0); White Blood Count 6.3 X10*3/uL (4.8-10.8)
--- NOTE | 2023-06-11 03:15 | MHC.EDTECH ---
Patient came in by ambulance,changed into hospital attire,vitals taken,rectal temp of 102.4,HR 120 RN at bedside, EKG taken per order and signed by provider,blood cultures,labs,and sars/flu/rsv obtained and sent to lab.Patient was incont. of a large amount of urine,patient was cleaned and continuous rectal probe placed. Pure-wick placed to keep patient clean and dry.
[2023-06-11 03:22] LABS: VBG Base Excess 6.6 mmol/L; VBG HCO3 34 mmol/L (22-26); VBG pCO2 60 mmHg; VBG pH 7.36 (7.32-7.43); VBG pO2 48 mmHg
[2023-06-11 03:23] LABS: Lactic Acid 0.7 mmol/L (0.5-2.0)
--- NOTE | 2023-06-11 03:24 | ED_ITS ---
HPI - SOB/Dyspnea General Chief Complaint: Dyspnea Stated Complaint: FLU LIKE SYMPTOMS Time Seen by Provider: 06/11/23 02:52 Source: patient, family, EMS and old records reviewed Mode of arrival: EMS Limitations: no limitations History of Present Illness HPI Narrative: 63 yo female with PMH of COPD on 2L NC, chronic respiratory failure prior intubation back in March 2022 strep pneumonia, HTN, prior breast cancer here with c/o cough, sputum, increased work of breathing, fevers since the weekend. States niece was ill and got her sick. EMS found her 70s but her O2 was kinked at home. Gave 2 duonebs and IV solumedrol [employer] elicited complaint: shortness of breath and cough Pertinent past history: COPD Onset (ago): day(s) (few) Context: other (sick contact) Timing: progressively worsening Severity: moderate Exacerbating factors: exertion, movement and coughing Relieving factors: oxygen, rest and bronchodilators Known history of: COPD Associated symptoms: fever, cough, wheezing and sputum production Treatment prior to arrival: oxygen, bronchodilator and other (solumedrol) Related Data Home Medications ?Medication ?Instructions ?Recorded ?Confirmed albuterol sulfate 90 mcg/actuation 2 puff inhalation QID PRN wheezing 02/05/20 03/26/22 aerosol inhaler anastrozole 1 mg tablet 1 tab PO DAILY 02/05/20 03/26/22 montelukast 10 mg tablet 1 tab PO BEDTIME 02/05/20 03/26/22 omeprazole 20 mg capsule,delayed 1 cap PO BID 02/05/20 03/26/22 release sertraline 100 mg tablet 1.5 tab PO DAILY 02/05/20 03/26/22 hydroxyzine pamoate 25 mg capsule 1 cap PO BID PRN Anxiety 03/26/22 03/26/22 multivitamin 1 tab PO DAILY 03/26/22 03/26/22 trazodone 50 mg tablet 1 tab PO BEDTIME 03/26/22 03/26/22 Previous Rx's ?Medication ?Instructions ?Recorded amoxicillin 875 mg tablet 875 mg PO BID #10 tabs 04/03/22 losartan 25 mg tablet 25 mg PO DAILY #0 tabs 04/03/22 prednisone 20 mg tablet 40 mg (2 x 20 mg) PO DAILY #0 tabs 04/03/22 Allergies Allergy/AdvReac Type Severity Reaction Status Date / Time Sulfa (Sulfonamide Allergy Mild RASH Verified 06/11/23 02:55 Antibiotics) codeine [Codeine] AdvReac Mild NEAR Verified 06/11/23 02:55 SYNCOPE epoprostenol [From Flolan] AdvReac Mild NAUSEA & Verified 06/11/23 02:55 VOMITING Review of Systems 2 Review of Systems: Constitutional : pos Fever, pos Chills ENT/Mouth : No Hoarseness, No sore throat, No Rhinorrhea Eyes: No Redness, No Discharge, No Vision Changes Cardiovascular : No Chest Pain, positive SOB, positive Dyspnea on Exertion, No Edema Respiratory : positive Cough, pos Sputum, positive Wheezing, Gastrointestinal : No Nausea, No Vomiting, No Diarrhea, No abdominal Pain Genitourinary : No Dysuria, No Hematuria Musculoskeletal : No joint pain, No Myalgias Skin : No rash Neuro : No Weakness, No Numbness, No Headache Psych : No anxiety, depression Heme/Lymph: No Bruising, No Bleeding Endocrine : No Polyuria, No Polydipsia All other systems reviewed and are negative [facility] Past Medical History Attestation statement: The following information was validated with the patient. Source: old records reviewed Medical History COPD (chronic obstructive pulmonary disease) Hypertension Breast CA Surgical History H/O lumpectomy Social History Social History Household Members: None Housing: House Do you presently have visiting nurse or other home services: No Unable to assess alcohol history related to: Unable to respond Patient Tobacco Use Status: Former Tobacco user Advance Directives: Yes Advance Directives on File: Yes Advance Directives Date on File: 03/26/22 Do you have a plan to hurt others: No Plan Patient : No service: No Current occupational status: disabled Physical Exam 2 Vital Signs: Vital Signs: Last Vital Signs Temp 102.7 F H 06/11/23 03:19 Pulse 122 H 06/11/23 03:19 Resp 28 H 06/11/23 03:19 BP 135/75 06/11/23 03:19 Pulse Ox 90 L 06/11/23 03:19 O2 Del Method Nasal Cannula 06/11/23 03:19 O2 Flow Rate 2 06/11/23 03:19 Oxygen Flow Rate 2 06/11/23 02:43 BMI result Body Mass Index 37.7 Appearance: Alert. Oriented X3. Mild acute distress. Eyes: Pupils equal, round and reactive to light. ENT: Pharynx normal. Neck: Normal inspection. Neck supple. CVS: tachypnea heart rate and rhythm. Pulses normal. Respiratory: Mild respiratory distress tachypnea Breath sounds coarse and wheezes heard throughout Abdomen: Soft and nontender. Skin: Skin warm and dry. Normal skin color. Normal skin turgor. Extremities: No lower extremity edema. No calf ttp Neuro: Oriented X 3. No motor deficit. No sensory deficit. Medications Administered Generic Name Dose Route Start Last Admin Trade Name Freq PRN Reason Stop Dose Admin Sodium Chloride 1,000 mls @ 999 mls/hr 06/11/23 03:00 06/11/23 02:59 Ns IV 06/11/23 04:00 999 mls/hr .Q1H1M JASON Administration Azithromycin 500 mg/ Sodium 250 mls @ 125 mls/hr 06/11/23 03:29 06/11/23 03:45 Chloride IV 06/11/23 05:28 125 mls/hr ONCE ONE Administration Discontinued Medications Generic Name Dose Route Start Last Admin Trade Name Freq PRN Reason Stop Dose Admin Acetaminophen 650 mg 06/11/23 02:52 06/11/23 03:08 Acetaminophen 325 Mg Tablet PO 06/11/23 02:53 650 mg ONCE ONE Administration Albuterol Sulfate 7.5 mg/ 10 mg 06/11/23 02:56 06/11/23 03:04 Albuterol Sulfate 2.5 mg INHALE 06/11/23 02:57 10 mg ONCE ONE Administration Ceftriaxone Sodium 1 gm/ 50 mls @ 100 mls/hr 06/11/23 02:46 06/11/23 03:08 Sodium Chloride IV 06/11/23 03:15 100 mls/hr ONCE ONE Administration Medical Decision Making Medical Decision Making MDM Narrative: 63 yo female with PMH of COPD on 2L NC, chronic respiratory failure prior intubation back in March 2022 strep pneumonia, HTN, prior breast cancer here with c/o not feeling well since the weekend with fevers, cough, increased work of breathing at this time viral panel, labs, CXR, empiric ceftriaxone and azithromycin, repeat nebs, already given steroids given her increased O2 demands currently on 3L NC 95% will admit for further workup suspect pneumonia. Differential Diagnosis Differential Diagnoses: The differential diagnosis associated with the presentation includes pneumonia, bronchitis, COPD Admission/Observation Consideration of admission/observation: Escalation of care including admission/observation considered will admit for further workup Consult Healthcare Provider Management of the patient was discussed with: Hospitalist (will admit) Lab Data MDM Lab Attestation statement: I reviewed the patient's lab results. 06/11/23 03:05 06/11/23 03:05 Labs: Lab Results 06/11/23 06/11/23 Range/Units 03:05 03:07 WBC 6.3 (4.8-10.8) X10*3/uL RBC 5.11 (4.20-5.50) X10*6/uL Hgb 15.1 (12.0-16.0) g/dl Hct 46.4 (37.0-47.0) % MCV 90.8 (80.0-98.0) fL MCH 29.5 (27.0-33.0) pg MCHC 32.5 (31.0-35.0) g/dl RDW 11.9 (11.0-16.0) % Plt Count 146 L D (160-400) X10*3/uL MPV 9.7 (9.4-12.3) fL Immature Gran % (Auto) 0.2 (0.0-0.4) % Neut % (Auto) 62.1 (45-73) % Lymph % (Auto) 28.6 (20-40) % [place] % (Auto) 7.8 (2-11) % Eos % (Auto) 1.1 (0-4) % Baso % (Auto) 0.2 (0-2) % Lymph # (Auto) 1.8 (1.2-4.9) X10*3/uL [place] # (Auto) 0.5 (0.1-1.2) X10*3/uL Eos # (Auto) 0.1 (0.0-0.4) X10*3/uL Baso # (Auto) 0.0 (0.0-0.2) X10*3/uL Abs Immat Gran (auto) 0.01 (0.00-0.03) X10*3/uL Absolute Neuts (auto) 3.9 (2.0-8.3) x10*3/uL Absolute Nucleated RBC 0.000 (0.0-0.012) X10*3/uL Nucleated RBC % (auto) 0.0 (0.0-0.2) /100WBC VBG pH 7.36 (7.32-7.43) VBG pCO2 60 mmHg VBG pO2 48 mmHg VBG HCO3 34 H (22-26) mmol/L VBG O2 Saturation 80.0 % VBG Base Excess 6.6 mmol/L Sodium 142 (135-145) mmol/L Potassium 3.7 (3.3-5.1) mmol/L Chloride 100 (96-108) mmol/L Carbon Dioxide 30 H (22-29) mmol/L Anion Gap 16 (12-20) BUN 10 (9-16) mg/dL Creatinine 0.74 (0.5-1.4) mg/dL Estim Creat Clear Calc 82.9 Estimated GFR > 60 Random Glucose 156 H (60-115) mg/dL Lactic Acid 0.7 (0.5-2.0) mmol/L Calcium 9.3 (8.4-10.2) mg/dL Magnesium 2.0 (1.6-2.6) mg/dL Total Bilirubin 0.8 (0.0-1.0) mg/dL Direct Bilirubin 0.3 (0.0-0.5) mg/dL AST 17 (5-31) U/L ALT 16 (0-31) U/L Alkaline Phosphatase 65 (39-117) U/L Troponin I High Sens 6.3 D (<3.5-17.0) ng/L B-Natriuretic Peptide 18 (<100) pg/mL Total Protein 7.1 (6.5-8.0) g/dL Albumin 4.0 (3.5-5.0) g/dL Lipase 18 (8-78) U/L Procalcitonin 0.06 ng/mL Influenza Type A (PCR) NEGATIVE (Negative) Influenza Type B (PCR) NEGATIVE (Negative) RSV RNA Qual (PCR) NEGATIVE (Negative) SARS-CoV-2 RNA (RT-PCR) NEGATIVE (Negative) ABG Data Attestation ABG: I personally reviewed and interpreted this ABG as follows: Interpretation: no retention Independent Interpretation I performed an independent interpretation of an: EKG and Plain X-Ray (bilateral opacities) Interpretation: Rate: 116 Rhythm: sinus tachy [place]: left Normal P waves. Normal [place]. Normal QRS complex. ST T wave : inverted t waves V1-V2, nonspecific inf leads, JAMIE qTC: 442 prior studies: no acute ischemia The study has been interpreted contemporaneously by me. . Radiology Impression Discussion of test interpretation with radiology: I have reviewed the radiologist's reading. Independent Historian Clinical information obtained from an independent historian. History obtained from or confirmed by: EMS and Other (family) External Record Review External record reviewed: Inpatient record Critical Care Time Critical Care Time Critical Care Time: Yes Total Critical Care Time: 60 Attestation: sepsis workup, repeat nebs, IVF, review of records, hypoxia intervention I attest to this time spent taking care of the patient Discharge Plan Discharge Clinical Impression: Pneumonia Qualifiers: Pneumonia type: due to unspecified organism Laterality: bilateral Lung location: lower lobe of lung Qualified Code(s): J18.9 - Pneumonia, unspecified organism Respiratory failure with hypoxia Qualifiers: Chronicity: acute on chronic Qualified Code(s): J96.21 - Acute and chronic respiratory failure with hypoxia Fever Qualifiers: Fever type: unspecified Qualified Code(s): R50.9 - Fever, unspecified Patient Disposition: Admitted As Inpatient Print Language: Tamazight
[2023-06-11 03:29] LABS: Venous Blood Gas Refer to POC result
[2023-06-11 03:32] LABS: B Type Natriuretic Peptide 18 pg/mL (<100)
[2023-06-11 03:36] LABS: Alanine Aminotransferase 16 U/L (0-31); Alkaline Phosphatase 65 U/L (39-117); Anion Gap 16 (12-20); Aspartate Amino Transferase 17 U/L (5-31); Bilirubin Direct 0.3 mg/dL (0.0-0.5); Bilirubin Total 0.8 mg/dL (0.0-1.0); Blood Urea Nitrogen 10 mg/dL (9-16); Calcium 9.3 mg/dL (8.4-10.2); Carbon Dioxide 30 mmol/L (22-29); Chloride 100 mmol/L (96-108); Creatinine Clr Calc Pharmacy 82.9; Estimated Glomerular Filt Rate > 60; Glucose Random 156 mg/dL (60-115); Lipase 18 U/L (8-78); Potassium 3.7 mmol/L (3.3-5.1); Sodium 142 mmol/L (135-145); Total Protein 7.1 g/dL (6.5-8.0); Troponin-I High Sensitivity 6.3 ng/L (<3.5-17.0)
[2023-06-11] MEDS: Azithromycin 500 MG in 0.9 % Sodium Chloride 250 ML 125 MG IV (03:45)
[2023-06-11 03:50] LABS: Influenza A PCR NEGATIVE (Negative); Influenza B PCR NEGATIVE (Negative); Procalcitonin 0.06 ng/mL; Resp Syncy Virus RNA Qual PCR NEGATIVE (Negative); SARS COV2 PCR INHOUSE NEGATIVE (Negative)
--- NOTE | 2023-06-11 04:25 | PC.NURSE ---
Pt is a 63 year female with history of COPD on 2 L at baseline. Pt presents with flu like sx 2-3 days. SOB weakness, wheezing, nebulizer machine missing parts. Pt reports having difficulty with ambulating and incontinence. IV placed by EMS in L-hand and given 2 duonebs 1, by CFD and 1 by EMS. Upon arrival pt tachy in the 120's, skin hot, rectal temp 102.4, RR:28, O2 sats initially 96% but after repositioning pt deat down to 84%. O2 increased to 3L sats improved to 94%, sepsis criteria met. notified orders placed.IV placed #20 L-AC all labs ordered drawn and sent. Fluids and abx running. RT administered neb, Pt cleaned and changed over into hospital attire. CXR completed and per MD likely double sided peumonia. Urinary incontinent, foul smellng urine. Purewick placed awaiting urine sample and continuous temp sensor placed. Skin C/D/I. NO IV OR BP IN R-ARM D/T HX OF BREAST CA. Admission pending, son at bedside aware of plan. Call carballo within reach and verbalize understanding of use. Plan of care ongoing.
--- NOTE | 2023-06-11 04:49 | P.HPHOSP_ITS ---
History of Present Illness Date of Service: 06/11/23 Chief Complaint: Dyspnea This is a 63-year-old female with pertinent history of breast cancer, essential hypertension, mood disorder, chronic hypoxemic respiratory failure due to COPD on baseline 2 L supplemental oxygen presents to the emergency department for evaluation of dyspnea. Patient states her symptoms started 4 days prior to presentation. She has been having fevers and chills. Also has been having a productive cough. Admits associated wheezing and dyspnea which is worse with exertion. No chest discomfort, palpitations, abdominal pain, changes in urinary or bowel habits. In the emergency department, patient was found to be septic and imaging concerning for focal consolidation. Review of Systems 2 Constitutional: Constitutional: Reports chills and Reports fever(s) Cardiovascular: Cardiovascular: Reports dyspnea on exertion Respiratory: Respiratory: Reports cough, Reports dyspnea on exertion and Reports wheezing Gastrointestinal: Gastrointestinal: Reports no additional gastrointestinal complaints Genitourinary: Genitourinary: Reports no additional female genitourinary complaints Allergic/Immunologic: Allergic/Immunologic: Reports wheezing [facility] Medical History COPD (chronic obstructive pulmonary disease) Hypertension Breast CA Pertinent family history: No family history of early CAD Surgical History H/O lumpectomy Social History Household Members: None Housing: House Do you presently have visiting nurse or other home services: No Unable to assess alcohol history related to: Unable to respond Alcohol intake: former Patient Tobacco Use Status: Former Tobacco user Smoked in Last 30 Days: No Use of substances other than those prescribed or required for medical reasons: No Advance Directives: Yes Advance Directives on File: Yes Advance Directives Date on File: 03/26/22 Do you have a plan to hurt others: No Plan Patient : No service: No Current occupational status: disabled Meds Allergies Allergy/AdvReac Type Severity Reaction Status Date / Time Sulfa (Sulfonamide Allergy Mild RASH Verified 06/11/23 02:55 Antibiotics) codeine [Codeine] AdvReac Mild NEAR Verified 06/11/23 02:55 SYNCOPE epoprostenol [From Flolan] AdvReac Mild NAUSEA & Verified 06/11/23 02:55 VOMITING Active Medications: Current Medications Azithromycin 500 mg/ Sodium (Chloride) 250 mls @ 125 mls/hr IV ONCE ONE Stop: 06/11/23 05:28 Last Admin: 06/11/23 03:45 Dose: 125 mls/hr Home Medications ?Medication ?Instructions ?Recorded ?Confirmed ?Last Taken ?Type albuterol sulfate 90 mcg/actuation 2 puff inhalation QID PRN wheezing 02/05/20 03/26/22 02/05/20 History aerosol inhaler anastrozole 1 mg tablet 1 tab PO DAILY 02/05/20 03/26/22 02/03/20 History montelukast 10 mg tablet 1 tab PO BEDTIME 02/05/20 03/26/22 02/03/20 21:00 History omeprazole 20 mg capsule,delayed 1 cap PO BID 02/05/20 03/26/22 02/03/20 21:00 History release sertraline 100 mg tablet 1.5 tab PO DAILY 02/05/20 03/26/22 Unknown History hydroxyzine pamoate 25 mg capsule 1 cap PO BID PRN Anxiety 03/26/22 03/26/22 Unknown History multivitamin 1 tab PO DAILY 03/26/22 03/26/22 Unknown History trazodone 50 mg tablet 1 tab PO BEDTIME 03/26/22 03/26/22 Unknown History Physical Exam 2 Vital Signs and Narrative: Vital Signs: Last Vital Signs Temp 102.7 F H 06/11/23 03:19 Pulse 122 H 06/11/23 03:19 Resp 28 H 06/11/23 03:19 BP 135/75 06/11/23 03:19 Pulse Ox 94 06/11/23 03:57 O2 Del Method Nasal Cannula 06/11/23 03:57 O2 Flow Rate 3 06/11/23 03:57 Oxygen Flow Rate 2 06/11/23 02:43 BMI result Body Mass Index 37.7 Middle-aged female lying in bed in mild distress on supplemental oxygen Neck supple, no JVD Regular rate and rhythm, S1-S2 heard Bilateral wheezing present Abdomen soft nontender, no guarding, no rigidity Patient is awake, alert and oriented to self, place, time and person ; no focal motor deficit Psych: Normal mood No pedal edema Results Labs 06/11/23 03:05 06/11/23 03:05 Labs: Laboratory Results - last 24 hr 06/11/23 06/11/23 03:05 03:07 MCV 90.8 MCH 29.5 MCHC 32.5 RDW 11.9 Plt Count 146 L D MPV 9.7 Immature Gran % (Auto) 0.2 Neut % (Auto) 62.1 Lymph % (Auto) 28.6 [place] % (Auto) 7.8 Eos % (Auto) 1.1 Baso % (Auto) 0.2 Lymph # (Auto) 1.8 [place] # (Auto) 0.5 Eos # (Auto) 0.1 Baso # (Auto) 0.0 Abs Immat Gran (auto) 0.01 Absolute Neuts (auto) 3.9 Absolute Nucleated RBC 0.000 Nucleated RBC % (auto) 0.0 VBG pH 7.36 VBG pCO2 60 VBG pO2 48 VBG HCO3 34 H VBG O2 Saturation 80.0 VBG Base Excess 6.6 Anion Gap 16 Estim Creat Clear Calc 82.9 Estimated GFR > 60 Random Glucose 156 H Lactic Acid 0.7 Calcium 9.3 Magnesium 2.0 Total Bilirubin 0.8 Direct Bilirubin 0.3 AST 17 ALT 16 Alkaline Phosphatase 65 Troponin I High Sens 6.3 D B-Natriuretic Peptide 18 Total Protein 7.1 Albumin 4.0 Lipase 18 Procalcitonin 0.06 Influenza Type A (PCR) NEGATIVE Influenza Type B (PCR) NEGATIVE RSV RNA Qual (PCR) NEGATIVE SARS-CoV-2 RNA (RT-PCR) NEGATIVE Imaging Radiologist's Impressions: Impressions Chest X-Ray 06/11/23 03:20 IMPRESSION: Streaky bibasilar opacities suggesting atelectasis versus possible developing consolidation. Possible trace right pleural effusion. Assessment and Plan (1) Fever: Qualifiers: Fever type: unspecified Qualified Code(s): R50.9 - Fever, unspecified Status: Acute (2) COPD with exacerbation: Status: Acute (3) Acute on chronic respiratory failure with hypoxia and hypercapnia: Status: Acute Plan This is a 63-year-old female with pertinent history of breast cancer, essential hypertension, mood disorder, chronic hypoxemic respiratory failure due to COPD on baseline 2 L supplemental oxygen presents to the emergency department for evaluation of dyspnea. #. Sepsis and acute on chronic hypoxemic respiratory failure due to pneumonia leading to acute exacerbation of COPD: Will admit patient with supplemental oxygen. Resuscitated with IV crystalloids. Initiating empiric IV antibiotics. Lactic acid blood culture obtained. Initiating IV steroids. Scheduled and p.r.n. DuoNebs. Continue home inhaler #. Essential hypertension: Continue home antihypertensive #. Obesity: Counseled regarding diet and exercise #. Breast cancer: On anastrozole #. Mood disorder: Continue home mood stabilizers Med rec pending DVT prophylaxis: Lovenox Full code Admit as inpatient and will require two night minimum hospital stay for supplemental oxygen, IV antibiotics (as above), which is not possible in a lesser acute setting. Quality Stroke Does the patient have a stroke diagnosis?: No VTE Prior VTE?: No VTE Risk Level:: Medical - moderate - high VTE Device Contraindication: Treatment Not Indicated VTE Drug Contraindication: N/A - Med Ordered
--- NOTE | 2023-06-11 05:07 | MHC.EDTECH ---
Hourly rounds and vitals completed,temp 100.7,patient is resting comfortably,belongings list completed and copy placed in chart,son at bedside
[2023-06-11] MEDS: Albuterol/Iprat 2.5/0.5MG 3 ML AMPUL.NEB INHALE ×5 (05:16→20:12)
[2023-06-11] MEDS: methylPREDNISolone Sod Succ 40 MG/ML VIAL IVPUSH ×2 (05:57→17:19)
[2023-06-11] MEDS: Enoxaparin Sodium 40 MG/0.4 ML SYRINGE SUBCUT (05:57)
[2023-06-11] MEDS: 0.9 % Sodium Chloride Flush 3 ML SYRINGE IVFLUSH ×3 (08:01→20:20)
[2023-06-11 08:57] LABS: Basophils Percent Auto 0.2 % (0-2); Hematocrit 42.6 % (37.0-47.0); Hemoglobin 14.3 g/dl (12.0-16.0); Imm Gran Abs Auto 0.01 X10*3/uL (0.00-0.03); Imm Gran Pct Auto 0.2 % (0.0-0.4); Lymphocytes Absolute Auto 0.2 X10*3/uL (1.2-4.9); MANUAL DIFF FLAG SCAN; Mean Corpuscular HGB Conc 33.6 g/dl (31.0-35.0); Mean Corpuscular Hemoglobin 30.6 pg (27.0-33.0); Mean Corpuscular Volume 91.2 fL (80.0-98.0); Mean Platelet Volume 9.7 fL (9.4-12.3); Monocytes Absolute Auto 0.1 X10*3/uL (0.1-1.2); Monocytes Percent Auto 1.5 % (2-11); Neutrophils Absolute Auto 3.8 x10*3/uL (2.0-8.3); Neutrophils Percent Auto 94.1 % (45-73); Platelet Count 118 X10*3/uL (160-400); Red Blood Count 4.67 X10*6/uL (4.20-5.50); SCAN SMEAR FLAG 1
[2023-06-11 09:24] LABS: Anion Gap 13 (12-20); Blood Urea Nitrogen 10 mg/dL (9-16); Calcium 8.7 mg/dL (8.4-10.2); Carbon Dioxide 27 mmol/L (22-29); Chloride 105 mmol/L (96-108); Creatinine Clr Calc Pharmacy 88.9; Estimated Glomerular Filt Rate > 60; Glucose Random 267 mg/dL (60-115); Potassium 3.4 mmol/L (3.3-5.1); Sodium 142 mmol/L (135-145)
[2023-06-11 10:00] LABS: SLIDE REVIEW VERIFIED
--- NOTE | 2023-06-11 10:00 | PHA.MEDREC ---
Pharmacy Consult ? Medication Reconciliation Pharmacy has completed the medication reconciliation.Spoke with patient in 375.
[2023-06-11 13:08] LABS: Adenovirus PCR Not Detected (Not Detect.); Bordetella parapertussis PCR Not Detected (Not Detect.); Bordetella pertussis PCR Not Detected (Not Detect.); Chlamydia pneumoniae PCR Not Detected (Not Detect.); Coronavirus 229E PCR Not Detected (Not Detect.); Coronavirus HKU1 PCR Not Detected (Not Detect.); Coronavirus NL63 PCR Not Detected (Not Detect.); Coronavirus OC43 PCR Not Detected (Not Detect.); Human metapneumovirus PCR Detected (Not Detect.); Influenza A PCR Not Detected (Not Detect.); Influenza B PCR Not Detected (Not Detect.); Mycoplasma pneumoniae PCR Not Detected (Not Detect.); Parainfluenza 1 PCR Not Detected (Not Detect.); Parainfluenza 2 PCR Not Detected (Not Detect.); Parainfluenza 3 PCR Not Detected (Not Detect.); Parainfluenza 4 PCR Not Detected (Not Detect.); RSV PCR Not Detected (Not Detect.); Rhino/Enterovirus PCR Not Detected (Not Detect.)
--- NOTE | 2023-06-11 14:02 | MHC.CM.PN ---
Addendum entered by Natalya Cummings 06/11/23 14:11: 2L HOME O2 VIA NC. Original Note: IMM 06/11/23 Patient lives by herself. She states that she is independent with all functional mobility. Dtr assists prn. She has home O2 [employer], through [facility]. HCP is on file. DP home self care. Her son or dtr will provide transportation home.
[2023-06-11 14:06] LABS: SARS-CoV-2 PCR Not Detected (Not Detect.)
[2023-06-11] MEDS: Losartan Potassium 50 MG TABLET PO (14:50)
[2023-06-11] MEDS: Sertraline HCL 50 MG TABLET 150 MG PO (14:50)
--- NOTE | 2023-06-11 17:18 | PM.EVENT ---
Event Note Date of Service: 06/11/23 Event Note: This patient is seen and examined by hospitalist team this morning,seen and examined again. patient came for dyspnea sob minimal improving Physical exam : similar to h&p note. assessment and plan coordinated h&P note, Agree with the plan in addition: Sepsis and acute on chronic hypoxemic respiratory failure due to pneumonia leading to acute exacerbation of COPD: continue nebs,steriods ,antibiotics Time Spent With Patient Time: Total time managing care of this patient today ____ minutes.
[2023-06-11] MEDS: Omeprazole 20 MG CAPSULE.DR PO (17:19)
[2023-06-11] MEDS: Montelukast Sodium 10 MG TABLET PO (20:20)
[2023-06-11] MEDS: Calcium + Vitamin D 250 MG TABLET PO (20:20)
[2023-06-12] VITALS (8 sets, daily range): BP systolic 139–152; BP diastolic 64–84; PULSE 78–96; RESP 18–20; TEMP 36.2–36.9; O2SAT 89–97
[2023-06-12] MEDS: methylPREDNISolone Sod Succ 40 MG/ML VIAL IVPUSH ×2 (05:55→17:47)
[2023-06-12] MEDS: Omeprazole 20 MG CAPSULE.DR PO ×2 (05:55→17:50)
[2023-06-12] MEDS: Enoxaparin Sodium 40 MG/0.4 ML SYRINGE SUBCUT (05:55)
[2023-06-12] MEDS: cefTRIAXone sodium 1 GM in 0.9 % Sodium Chloride 50 ML IV (05:55)
[2023-06-12] MEDS: Acetaminophen 325 MG TABLET 650 MG PO ×2 (05:55→15:01)
[2023-06-12] MEDS: Albuterol/Iprat 2.5/0.5MG 3 ML AMPUL.NEB INHALE ×4 (08:01→19:45)
[2023-06-12] MEDS: Fluticasone/Umeclidinium/Vilanterol 200/62.5/25 BLST.W.DEV 1 PUFF INHALE (08:01)
[2023-06-12] MEDS: Azithromycin 500 MG in 0.9 % Sodium Chloride 250 ML 125 MG IV (08:43)
[2023-06-12] MEDS: Calcium + Vitamin D 250 MG TABLET PO ×2 (08:44→20:57)
[2023-06-12] MEDS: Sertraline HCL 50 MG TABLET 150 MG PO (08:44)
[2023-06-12] MEDS: Losartan Potassium 50 MG TABLET PO (08:44)
[2023-06-12] MEDS: 0.9 % Sodium Chloride Flush 3 ML SYRINGE IVFLUSH ×3 (08:46→20:57)
[2023-06-12] MEDS: guaiFEN/Codeine SF 200/20/10ML 10 ML LIQUID PO ×4 (11:01→22:28)
--- NOTE | 2023-06-12 12:57 | MHC.CM.PN ---
EMR reviewed. Per MD rounds patient is not medically cleared for dc. CM will continue to follow for dc needs.
--- NOTE | 2023-06-12 14:00 | P.PNIM_ITS ---
Subjective Subjective Date of Service: 06/12/23 Interval History: acute on chronic hypoxemic respiratory failure due to pneumonia leading to acute exacerbation of COPD Review of Systems sob minimal improving,talk in slow sentences. has cough Physical Exam 2 Vital Signs: Vital Signs: Last Vital Signs Temp 97.2 F 06/12/23 08:00 Pulse 85 06/12/23 11:58 Resp 20 06/12/23 11:58 BP 144/84 H 06/12/23 08:00 Pulse Ox 89 L 06/12/23 08:00 O2 Del Method Nasal Cannula 06/12/23 08:00 O2 Flow Rate 2 06/12/23 08:00 Oxygen Flow Rate 2 06/11/23 02:43 BMI result Body Mass Index 37.7 Appearance: Alert.? Oriented X3.. cvs: rrr, [id number] , no murmur res: air entry diminshed ,b/l exp wheezing abd: no rebound or guarding ,nt, bs present. ext pulses present , no cyanosis . neuro: axo3 , nonfocal. Objective Data Active Medications Acetaminophen (Acetaminophen 325 Mg Tablet) 650 mg PO Q6H PRN PRN Reason: Pain, Mild (Pain Scale 1-3) Last Admin: 06/12/23 05:55 Dose: 650 mg Documented By: NESS Albuterol/Ipratropium (Albuterol/Iprat 2.5/0.5mg 3 Ml Ampul.Neb) 3 ml INHALE RQ4H WHILE AWAKE [facility] Last Admin: 06/12/23 11:57 Dose: 3 ml Documented By: DONELLTISTammy Albuterol/Ipratropium (Albuterol/Iprat 2.5/0.5mg 3 Ml Ampul.Neb) 3 ml INHALE Q4H PRN PRN Reason: Wheezing Last Admin: 06/11/23 05:16 Dose: 3 ml Documented By: SHEILA Calcium Carbonate/Cholecalciferol (Calcium + Vitamin D 250 Mg Tablet) 250 mg PO BID [facility] Last Admin: 06/12/23 08:44 Dose: 250 mg Documented By: OSCAR Enoxaparin Sodium (Enoxaparin Sodium 40 Mg/0.4 Ml Syringe) 40 mg SUBCUT Q24H [facility] Last Admin: 06/12/23 05:55 Dose: 40 mg Documented By: NESS Fluticasone/Umeclidinium/Vilanterol (Fluticasone/Umeclidinium/Vilanterol 200/62.5/25 Blst.W.Dev) 1 puff INHALE DAILY [facility] Last Admin: 06/12/23 08:01 Dose: 1 puff Documented By: KEISHA Guaifenesin/Codeine Phosphate (Guaifen/Codeine Sf 200/20/10ml 10 Ml Liquid) 10 ml PO Q4H [facility] Last Admin: 06/12/23 11:01 Dose: 10 ml Documented By: OSCAR Hydroxyzine HCl (Hydroxyzine Hcl 25 Mg Tablet) 25 mg PO BID PRN PRN Reason: Anxiety Ceftriaxone Sodium 1 gm/ (Sodium Chloride) 50 mls @ 100 mls/hr IV Q24H [facility] Last Infusion: 06/12/23 06:29 Dose: Infused Documented By: NESS Azithromycin 500 mg/ Sodium (Chloride) 250 mls @ 125 mls/hr IV Q24H [facility] Last Infusion: 06/12/23 10:49 Dose: Infused Documented By: OSCAR Losartan Potassium (Losartan Potassium 50 Mg Tablet) 50 mg PO DAILY [facility]; Protocol Last Admin: 06/12/23 08:44 Dose: 50 mg Documented By: OSCAR Melatonin (Melatonin 3 Mg Tablet) 6 mg PO BEDTIME PRN PRN Reason: Insomnia Methylprednisolone Sodium Succinate (Methylprednisolone Sod Succ 40 Mg/Ml Vial) 40 mg IVPUSH Q12H [facility] Last Admin: 06/12/23 05:55 Dose: 40 mg Documented By: NESS Montelukast Sodium (Montelukast Sodium 10 Mg Tablet) 10 mg PO BEDTIME [facility] Last Admin: 06/11/23 20:20 Dose: 10 mg Documented By: NESS Omeprazole (Omeprazole 20 Mg Capsule.Dr) 20 mg PO BID@0630,1630 [facility] Last Admin: 06/12/23 05:55 Dose: 20 mg Documented By: NESS Ondansetron HCl (Ondansetron Hcl 4 Mg/2 Ml Vial) 4 mg IVPUSH Q8H PRN PRN Reason: Nausea and Vomiting Sertraline HCl (Sertraline Hcl 50 Mg Tablet) 150 mg PO DAILY [facility] Last Admin: 06/12/23 08:44 Dose: 150 mg Documented By: OSCAR Sodium Chloride (0.9 % Sodium Chloride Flush 3 Ml Syringe) 3 ml IVFLUSH QSHIFT [facility] Last Admin: 06/12/23 08:46 Dose: 3 ml Documented By: OSCAR Labs 06/11/23 08:45 06/11/23 08:45 Labs: Laboratory Results - last 24 hr 06/11/23 09:06 Respiratory Panel [place] See Note Adenovirus (Rapid PCR) Not Detected B.pert (TEM-PCR) Not Detected B.parapertussis DNA PCR Not Detected C. pneumoniae DNA (PCR) Not Detected Coronavirus OC43 (PCR) Not Detected Coronavirus HKU1 (PCR) Not Detected Coronavirus 229E (PCR) Not Detected Coronavirus NL63 (PCR) Not Detected Human Metapneumovir PCR Detected A Influenza A (RT-PCR) Not Detected Influenza B (RT-PCR) Not Detected M. pneumoniae (PCR) Not Detected Parainfluenza 1 (PCR) Not Detected Parainfluenza 2 (PCR) Not Detected Parainfluenza 3 (PCR) Not Detected Parainfluenza 4 (PCR) Not Detected RSV (PCR) Not Detected Entero/Rhino (PCR) Not Detected SARS-CoV-2 RNA (RT-PCR) Not Detected Microbiology Microbiology Results: Microbiology 06/11/23 03:05 Blood Culture - Preliminary Blood - Venous No growth after 24 hours. 06/11/23 03:05 Blood Culture - Preliminary Blood - Venous No growth after 24 hours. Assessment and Plan (1) COPD with exacerbation: Status: Acute (2) Pneumonia: Status: Acute Plan 63-year-old female with pertinent history of breast cancer, essential hypertension, mood disorder, chronic hypoxemic respiratory failure due to COPD on baseline 2 L supplemental oxygen presents to the emergency department for evaluation of dyspnea. Sepsis and acute on chronic hypoxemic respiratory failure due to pneumonia leading to acute exacerbation of COPD: sob with minimal elevation, aggressive cough lactic acid normal,blood cultures negative @24hrs Plan: supplemental oxygen,empiric IV antibiotics,nebs,IV steroids.,hycodan ,loratidine. Essential hypertension: Continue home antihypertensive Obesity: Counseled regarding diet and exercise Breast cancer: On anastrozole Mood disorder: Continue home mood stabilizers. morbid obesity -encouraged to lose weight, cutdown calories DVT prophylaxis: Lovenox . Full code ongoing hospital stay for acute on chronic hypoxemic respiratory failure, sepsis, pneumonia- supplemental oxygen, IV antibiotics, nebs, IV steroids (as above), which is not possible in a lesser acute setting. Quality Stroke Does the patient have a stroke diagnosis?: No VTE Prior VTE?: No VTE Risk Level:: Medical - moderate - high VTE Device Contraindication: Treatment Not Indicated VTE Drug Contraindication: N/A - Med Ordered
[2023-06-12] MEDS: Ibuprofen 400 MG TABLET PO (18:07)
[2023-06-12] MEDS: Montelukast Sodium 10 MG TABLET PO (20:57)
[2023-06-13] VITALS (8 sets, daily range): BP systolic 150–185; BP diastolic 66–86; PULSE 72–113; RESP 18–28; TEMP 36.1–37; O2SAT 90–96
[2023-06-13] MEDS: Omeprazole 20 MG CAPSULE.DR PO ×2 (05:55→17:20)
[2023-06-13] MEDS: Enoxaparin Sodium 40 MG/0.4 ML SYRINGE SUBCUT (05:55)
[2023-06-13] MEDS: methylPREDNISolone Sod Succ 40 MG/ML VIAL IVPUSH ×2 (05:55→17:20)
[2023-06-13] MEDS: cefTRIAXone sodium 1 GM in 0.9 % Sodium Chloride 50 ML IV (05:56)
[2023-06-13] MEDS: guaiFEN/Codeine SF 200/20/10ML 10 ML LIQUID PO ×5 (06:29→22:53)
[2023-06-13] MEDS: Fluticasone/Umeclidinium/Vilanterol 200/62.5/25 BLST.W.DEV 1 PUFF INHALE (07:44)
[2023-06-13] MEDS: Albuterol/Iprat 2.5/0.5MG 3 ML AMPUL.NEB INHALE ×4 (07:44→20:44)
[2023-06-13] MEDS: Calcium + Vitamin D 250 MG TABLET PO ×2 (08:20→22:52)
[2023-06-13] MEDS: Losartan Potassium 50 MG TABLET PO (08:20)
[2023-06-13] MEDS: Azithromycin 500 MG in 0.9 % Sodium Chloride 250 ML 125 MG IV (08:21)
[2023-06-13] MEDS: Sertraline HCL 50 MG TABLET 150 MG PO (08:21)
[2023-06-13] MEDS: 0.9 % Sodium Chloride Flush 3 ML SYRINGE IVFLUSH ×3 (08:22→22:54)
[2023-06-13] MEDS: guaiFENesin LA 600 MG TAB.ER.12H PO (10:29)
--- NOTE | 2023-06-13 14:17 | HO.PM.IMPN ---
Subjective Subjective Date of Service: 06/13/23 Interval History: acute on chronic hypoxemic respiratory failure due to pneumonia leading to acute exacerbation of COPD Review of Systems sob seems similar has cough no fevers Physical Exam Vital Signs: Vital Signs: Last Vital Signs Temp 97.5 F 06/13/23 07:54 Pulse 101 H 06/13/23 11:38 Resp 20 06/13/23 11:38 BP 158/80 H 06/13/23 07:54 Pulse Ox 94 06/13/23 07:54 O2 Del Method Nasal Cannula 06/13/23 07:54 O2 Flow Rate 2 06/13/23 07:54 Oxygen Flow Rate 2 06/11/23 02:43 BMI result Body Mass Index 37.7 Appearance: Alert.? Oriented X3.. cvs: rrr, [id number] , no murmur res: air entry diminshed ,b/l exp wheezing abd: no rebound or guarding ,nt, bs present. ext pulses present , no cyanosis . neuro: axo3 , nonfocal. Objective Data Active Medications Acetaminophen (Acetaminophen 325 Mg Tablet) 650 mg PO Q6H PRN PRN Reason: Pain, Mild (Pain Scale 1-3) Last Admin: 06/12/23 15:01 Dose: 650 mg Documented By: OSCAR Albuterol/Ipratropium (Albuterol/Iprat 2.5/0.5mg 3 Ml Ampul.Neb) 3 ml INHALE RQ4H WHILE AWAKE [facility] Last Admin: 06/13/23 11:36 Dose: 3 ml Documented By: KEISHA Albuterol/Ipratropium (Albuterol/Iprat 2.5/0.5mg 3 Ml Ampul.Neb) 3 ml INHALE Q4H PRN PRN Reason: Wheezing Last Admin: 06/11/23 05:16 Dose: 3 ml Documented By: SHEILA Calcium Carbonate/Cholecalciferol (Calcium + Vitamin D 250 Mg Tablet) 250 mg PO BID [facility] Last Admin: 06/13/23 08:20 Dose: 250 mg Documented By: ANEUDY Enoxaparin Sodium (Enoxaparin Sodium 40 Mg/0.4 Ml Syringe) 40 mg SUBCUT Q24H [facility] Last Admin: 06/13/23 05:55 Dose: 40 mg Documented By: ODRISM Fluticasone/Umeclidinium/Vilanterol (Fluticasone/Umeclidinium/Vilanterol 200/62.5/25 Blst.W.Dev) 1 puff INHALE DAILY [facility] Last Admin: 06/13/23 07:44 Dose: 1 puff Documented By: KEISHA Guaifenesin/Codeine Phosphate (Guaifen/Codeine Sf 200/20/10ml 10 Ml Liquid) 10 ml PO Q4H [facility] Last Admin: 06/13/23 10:29 Dose: 10 ml Documented By: ANEUDY Hydroxyzine HCl (Hydroxyzine Hcl 25 Mg Tablet) 25 mg PO BID PRN PRN Reason: Anxiety Ceftriaxone Sodium 1 gm/ (Sodium Chloride) 50 mls @ 100 mls/hr IV Q24H [facility] Last Infusion: 06/13/23 06:26 Dose: Infused Documented By: NESS Azithromycin 500 mg/ Sodium (Chloride) 250 mls @ 125 mls/hr IV Q24H [facility] Last Infusion: 06/13/23 10:29 Dose: Infused Documented By: ANEUDY Losartan Potassium (Losartan Potassium 50 Mg Tablet) 50 mg PO DAILY [facility]; Protocol Last Admin: 06/13/23 08:20 Dose: 50 mg Documented By: ANEUDY Melatonin (Melatonin 3 Mg Tablet) 6 mg PO BEDTIME PRN PRN Reason: Insomnia Methylprednisolone Sodium Succinate (Methylprednisolone Sod Succ 40 Mg/Ml Vial) 40 mg IVPUSH Q12H [facility] Last Admin: 06/13/23 05:55 Dose: 40 mg Documented By: NESS Montelukast Sodium (Montelukast Sodium 10 Mg Tablet) 10 mg PO BEDTIME [facility] Last Admin: 06/12/23 20:57 Dose: 10 mg Documented By: NESS Omeprazole (Omeprazole 20 Mg Capsule.Dr) 20 mg PO BID@0630,1630 [facility] Last Admin: 06/13/23 05:55 Dose: 20 mg Documented By: NESS Ondansetron HCl (Ondansetron Hcl 4 Mg/2 Ml Vial) 4 mg IVPUSH Q8H PRN PRN Reason: Nausea and Vomiting Sertraline HCl (Sertraline Hcl 50 Mg Tablet) 150 mg PO DAILY [facility] Last Admin: 06/13/23 08:21 Dose: 150 mg Documented By: ANEUDY Sodium Chloride (0.9 % Sodium Chloride Flush 3 Ml Syringe) 3 ml IVFLUSH QSHIFT [facility] Last Admin: 06/13/23 08:22 Dose: 3 ml Documented By: ANEUDY Labs 06/11/23 08:45 06/11/23 08:45 Microbiology Microbiology Results: Microbiology 06/11/23 03:05 Blood Culture - Preliminary Blood - Venous No growth after 48 hours. 06/11/23 03:05 Blood Culture - Preliminary Blood - Venous No growth after 48 hours. Assessment and Plan (1) COPD with exacerbation: Status: Acute (2) Pneumonia: Status: Acute Plan 63-year-old female with pertinent history of breast cancer, essential hypertension, mood disorder, chronic hypoxemic respiratory failure due to COPD on baseline 2 L supplemental oxygen presents to the emergency department for evaluation of dyspnea. Sepsis and acute on chronic hypoxemic respiratory failure due to pneumonia leading to acute exacerbation of COPD: sob with minimal elevation, aggressive cough lactic acid normal,blood cultures negative @24hrs Plan: supplemental oxygen,empiric IV antibiotics,nebs,IV steroids.,hycodan ,loratidine. Essential hypertension: Continue home antihypertensive Obesity: Counseled regarding diet and exercise Breast cancer: On anastrozole Mood disorder: Continue home mood stabilizers. morbid obesity -encouraged to lose weight, cutdown calories DVT prophylaxis: Lovenox . Full code ongoing hospital stay for acute on chronic hypoxemic respiratory failure, sepsis, pneumonia- supplemental oxygen, IV antibiotics, nebs, IV steroids (as above), which is not possible in a lesser acute setting. Quality Stroke Does the patient have a stroke diagnosis?: No VTE Prior VTE?: No VTE Risk Level:: Medical - moderate - high VTE Device Contraindication: Treatment Not Indicated VTE Drug Contraindication: N/A - Med Ordered
--- NOTE | 2023-06-13 14:17 | MHC.CM.PN ---
PT recommending home w/ services. CM met with patient who is agreeable to plan, prefers [facility]. Patient also reports that her son in law is her DIRECTOR OF RECREATION THERAPY, unsure of how many hours. PCP is Carmen Burk CNP. Referral sent in [facility]. CM will continue to follow for dc needs.
--- NOTE | 2023-06-13 14:41 | P.CDIM_ITS ---
PROVIDER RESPONSE TEXT: To clarify, the appropriate diagnosis supported by the clinical indicators: Morbid obesity QUERY TEXT: PHYSICIAN'S DOCUMENTATION REQUEST Date of Query: 06/13/2023 08:20 AM EDT Patient Name: Fernanda Peace Admit Date: 06/11/2023 Dear Greer Pierce, A review of the medical record indicates additional documentation may be needed. Please review below and update the documentation accordingly. Clinical Indicators: Progress note dated 06/11 - Plan: Obesity: Counseled regarding diet and exercise Morbid obesity - encouraged to lose weight, cutdown calories BMI 37.7 93.6kg Clarity and consistency of a noted diagnosis: Morbid obesity Obesity Other (explain) Clinically unable to determine (explain) Thank you, Dory Perez, CCS, CDIS Use of terms such as suspected, likely, concern for, or probable (associated with a specific diagnosi s that is being evaluated, monitored, or treated as if it exists) are acceptable and can be coded in the inpatient se tting, when documented at the time of discharge. Please use your independent medical judgment in providing your response. THIS QUERY IS PART OF THE PERMANENT MEDICAL RECORD
[2023-06-13] MEDS: hydrOXYzine HCL 25 MG TABLET PO (22:51)
[2023-06-13] MEDS: Acetaminophen 325 MG TABLET 650 MG PO (22:52)
[2023-06-13] MEDS: Montelukast Sodium 10 MG TABLET PO (22:52)
[2023-06-13] MEDS: Ibuprofen 600 MG TABLET PO (23:30)
[2023-06-14 03:56] VITALS: BP 139/69; PULSE 72; RESP 20; TEMP 35.5; O2SAT 96
[2023-06-14] MEDS: methylPREDNISolone Sod Succ 40 MG/ML VIAL IVPUSH (06:10)
[2023-06-14] MEDS: cefTRIAXone sodium 1 GM in 0.9 % Sodium Chloride 50 ML IV (06:13)
[2023-06-14] MEDS: guaiFEN/Codeine SF 200/20/10ML 10 ML LIQUID PO ×3 (06:18→14:36)
[2023-06-14] MEDS: Omeprazole 20 MG CAPSULE.DR PO ×2 (06:18→17:17)
[2023-06-14] MEDS: Enoxaparin Sodium 40 MG/0.4 ML SYRINGE SUBCUT (06:18)
[2023-06-14 06:52] VITALS: BP 122/68; PULSE 72; RESP 17; TEMP 36.6; O2SAT 95
[2023-06-14 08:32] LABS: Hemoglobin 13.2 g/dl (12.0-16.0)
[2023-06-14] MEDS: Albuterol/Iprat 2.5/0.5MG 3 ML AMPUL.NEB INHALE ×3 (08:34→15:31)
[2023-06-14] MEDS: Fluticasone/Umeclidinium/Vilanterol 200/62.5/25 BLST.W.DEV 1 PUFF INHALE (08:34)
[2023-06-14] MEDS: 0.9 % Sodium Chloride Flush 3 ML SYRINGE IVFLUSH (08:35)
[2023-06-14] MEDS: predniSONE 20 MG TABLET 40 MG PO (08:36)
[2023-06-14] MEDS: Calcium + Vitamin D 250 MG TABLET PO (08:36)
[2023-06-14] MEDS: Losartan Potassium 50 MG TABLET PO (08:36)
[2023-06-14] MEDS: Azithromycin 500 MG in 0.9 % Sodium Chloride 250 ML 125 MG IV (08:36)
[2023-06-14 08:37] VITALS: PULSE 76; RESP 18; O2SAT 96
[2023-06-14] MEDS: Sertraline HCL 50 MG TABLET 150 MG PO (08:37)
[2023-06-14 11:18] VITALS: PULSE 90; RESP 18; O2SAT 95
--- NOTE | 2023-06-14 14:37 | MHC.CM.PN ---
DP: IMM DELIVERED PT HAS BEEN MEDICALLY CLEARED FOR DC HOME WITH NEW [facility]. [facility] NOTIFIED OF TODAY'S DC. SON WILL TRANSPORT HOME AT 5:30 PM
--- NOTE | 2023-06-14 14:47 | PM.DS ---
DS: Providers Provider Date of Service: 06/14/23 Date of admission: 06/11/23 04:47 Date of discharge: 06/14/23 Primary care physician: Unknown Physician Attending physician on discharge: Greer Pierce Discharging clinician: Greer Pierce DS: Diagnosis Discharge Diagnosis (1) COPD with exacerbation: Status: Acute (2) Pneumonia: Status: Acute DS: Summary Hospital Course Hospital Course: 63-year-old female with pertinent history of breast cancer, essential hypertension, mood disorder, chronic hypoxemic respiratory failure due to COPD on baseline 2 L supplemental oxygen presents to the emergency department for evaluation of dyspnea. Patient states her symptoms started 4 days prior to presentation. She has been having fevers and chills. Also has been having a productive cough. Admits associated wheezing and dyspnea which is worse with exertion. No chest discomfort, palpitations, abdominal pain, changes in urinary or bowel habits. In the emergency department, patient was found to be septic and imaging concerning for focal consolidation. Hospital course: Patient was admitted for acute on chronic hypoxemic respiratory failure due to pneumonia leading to acute exacerbation of COPD: wbc 4000k ,cxr: possible pneumonia ,lactic acid normal ,blood cultures and respiratory viral panel sent- started on iv levaquin,steriods,nebs : patient seems to be improved with supportive care .now she is on her baseline home oxygen2 liters,blood cultures neg@48hrs, respiratory viral panel showed Human Metapneumo PCR Positive . Patient will go home with po ceftin 500 mg po bid and azithromycin 500 mg daily for 5 days ,prednisone 40mg daily for 4 days. consider repeat chest imaging in 3 weeks to see resolution of penumonia (outpatient). Morbid obesity: Encouraged to lose weight, cutdown calories. plan: Patient will go home with po ceftin 500 mg po bid and azithromycin 500 mg daily for 5 days ,prednisone 40mg daily for 4 days. consider repeat chest imaging in 3 weeks to see resolution of penumonia (outpatient). Above management discussed with the patient in detail length she understand and in agreement with the above plan, time spent 40 minutes and 50% time spent on counseling. Time Attestation Total time managing care of this patient today: 40 mintues. Discharge Coordination Time (in mins): 40 min Quality: Safe Use of Opioids Does Pt have an Active Cancer Diagnosis on the Problem List?: No Quality: Stroke Does the patient have a stroke diagnosis?: No Physical Exam Vital Signs: Vital Signs: Last Vital Signs Temp 98 F 06/14/23 06:52 Pulse 90 06/14/23 11:18 Resp 18 06/14/23 11:18 BP 122/68 06/14/23 06:52 Pulse Ox 95 06/14/23 06:52 O2 Del Method Nasal Cannula 06/14/23 06:52 O2 Flow Rate 2 06/14/23 06:52 Oxygen Flow Rate 2 06/11/23 02:43 BMI result Body Mass Index 37.7 Appearance: Alert.? Oriented X3.. cvs: rrr, [id number] . res: air entry fair ,no rales or wheezing abd: no rebound or guarding ,nt, bs present. ext pulses present , no cyanosis . neuro: axo3 , nonfocal DS: Data Data Completed and Pending Completed studies during hospitalization [Text1]: Procedures Insertion of Endotracheal Airway into Trachea, Via Natural or Artificial Opening (03/26/22) Insertion of Infusion Device into Superior Vena Cava, Percutaneous Approach (03/26/22) Introduction of Vasopressor into Peripheral Vein, Percutaneous Approach (03/26/22) Respiratory Ventilation, 24-96 Consecutive Hours (03/26/22) Ultrasonography of Superior Vena Cava, Guidance (03/26/22) Labs on day of discharge: Laboratory Results - last 24 hr 06/14/23 08:00 Hgb 13.2 Hct 42.0 Preliminary micro results at discharge 06/11/23 03:05 Blood Culture - Preliminary Blood - Venous No growth after 48 hours. 06/11/23 03:05 Blood Culture - Preliminary Blood - Venous No growth after 48 hours. Imaging Chest x-ray: Radiologist's impression: ITS Impressions Chest X-Ray 06/11/23 03:20 IMPRESSION: Streaky bibasilar opacities suggesting atelectasis versus possible developing consolidation. Possible trace right pleural effusion. Discharge Plan Discharge Anticipated Discharge Date/Time: 06/14/23 14:32 Patient Disposition: Home Health Service Discharge Diagnosis: acute on chronic hypoxemic respiratory failure due to pneumonia leading to acute exacerbation of COPD Referrals: Doni HARRELL [Outside] - 3-5 Days () Physician,Unknown J [Primary Care Provider] - 1 Week Discharge Medications: New azithromycin 500 mg tablet 500 mg PO DAILY 4 Days Qty: 5 0RF cefuroxime axetil 500 mg tablet 500 mg PO BID Qty: 10 0RF prednisone 20 mg tablet 40 mg PO DAILY Qty: 8 0RF Continued sertraline 100 mg tablet 1.5 tab PO DAILY omeprazole 20 mg capsule,delayed release(DR/EC) 1 cap PO BID@0630,1630 montelukast 10 mg tablet 1 tab PO BEDTIME albuterol sulfate 90 mcg/actuation HFA aerosol inhaler 2 puff inhalation QID PRN (Reason: wheezing) hydroxyzine pamoate 25 mg capsule 1 cap PO BID PRN (Reason: Anxiety) losartan 50 mg tablet 50 mg PO DAILY calcium citrate-vitamin D3 315 mg-6.25 mcg (250 unit) tablet 1 tab PO BID Trelegy Ellipta 200-62.5-25 mcg blister with device 1 ea inhalation DAILY Held azithromycin 500 mg tablet 500 mg PO MOWEFR@0900 Hold Instructions: Resume on 06/21/23. Discharge Orders: Discharge Order (Routine); Ordered 06/14/23 Ordered By: Greer Pierce Diet: Advance to usual diet Activity on Discharge: As tolerated Stand Alone Forms: Patient Portal Discharge page Print Language: German Care Plan Goals: Patient was admitted for acute on chronic hypoxemic respiratory failure due to pneumonia leading to acute exacerbation of COPD: wbc 4000k ,cxr: possible pneumonia ,lactic acid normal ,blood cultures and respiratory viral panel sent- started on iv levaquin,steriods,nebs : patient seems to be improved with supportive care .now she is on her baseline home oxygen2 liters,blood cultures neg@48hrs, respiratory viral panel showed Human Metapneumo PCR Positive . Patient will go home with po ceftin 500 mg po bid and azithromycin 500 mg daily for 5 days ,prednisone 40mg daily for 4 days. consider repeat chest imaging in 3 weeks to see resolution of penumonia (outpatient). Health Concerns: as above. Plan of Treatment: Patient will go home with po ceftin 500 mg po bid and azithromycin 500 mg daily for 5 days ,prednisone 40mg daily for 4 days. consider repeat chest imaging in 3 weeks to see resolution of penumonia (outpatient). Assessment: as above. Patient Instructions: Pneumonia (DC)
--- NOTE | 2023-06-14 14:51 | P.F2F_ITS ---
Service Date Service Date: 06/14/23 Encounter Date of encounter: 06/14/23 Encounter: copd ,pneumonia Reasons for Services Signs and symptoms assessed: sob ,cough ,fever Reason for nursing home: CV/CP assess and/or care, medication management, medication treatment and teach disease management Reason for physical therapy: home safety and mobility, therapeutic exercises, restore joint function, gait/transfer training, assess need for DME, ADL training, energy conservation and other MD Overseeing Care: Carmen Burk Homebound: Leaving the home is medically contraindicated at this time without the asist of a device and/or another person due th the listed conditions above and below. Reason homebound: weakness related to hospital stay Homebound supporting statement: Patient is generalized weak, has multiple comorbidities: Patient need help with the appointments, disease management, home PT. Certification: Based on the above findings, I certify that this patient is confined to the home and needs intermittent nursing home care, physical therapy and/or speech therapy, or continues to need occupational therapy. The patient is under my care, and I have initiated the establishment of the plan of care. The patient will be followed by a physician who will periodically review the plan of care. Time Spent With Patient Time: Total time managing care of this patient today ____ minutes.
[2023-06-14 15:31] VITALS: PULSE 80; RESP 17; O2SAT 96
[2023-06-14 16:05] VITALS: BP 148/79; PULSE 94; RESP 18; TEMP 36.6; O2SAT 94
== END 2023-06-14 18:05 | disposition home health service (06) | DRG 871 ==
LOC: HO.ED 03:35 → HO.EDOVER 04:52 → HO.S3 07:48
PROVIDERS: Admitting Provider Student in an Organized Health Care Education/Training Program; Emergency Provider Emergency Medicine; PCP Nurse Practitioner Family; Visit Provider Internal Medicine
DX: A41.9 Sepsis, unspecified organism (principal); J18.9 Pneumonia, unspecified organism; J96.11 Chronic respiratory failure with hypoxia; J44.0 Chronic obstructive pulmonary disease with (acute) lower respiratory infection; J44.1 Chronic obstructive pulmonary disease with (acute) exacerbation; B97.81 Human metapneumovirus as the cause of diseases classified elsewhere; F39 Unspecified mood [affective] disorder; E66.01 Morbid (severe) obesity due to excess calories; Z68.37 Body mass index [BMI] 37.0-37.9, adult; Z71.3 Dietary counseling and surveillance; C50.919 Malignant neoplasm of unspecified site of unspecified female breast; Z79.811 Long term (current) use of aromatase inhibitors; Z99.81 Dependence on supplemental oxygen; Z20.822 Contact with and (suspected) exposure to COVID-19; Z87.891 Personal history of nicotine dependence; Z79.899 Other long term (current) drug therapy
CPT/HCPCS: 0241U; 36415; 71045; 80048; 80076; 82803; 83605; 83690; 83735; 83880; 84145; 84484; 85014; 85018; 85025; 87040; 87633; 93005; 94640; 97161; 99285; J0456; J0696; J1650; J2919

== ENCOUNTER → 2023-06-11 02:45 | Outpatient (BNV) | payer OTHER, SELFPAY | PROVIDERS: Admitting Provider Student in an Organized Health Care Education/Training Program; Emergency Provider Emergency Medicine; Visit Provider Internal Medicine | DX: R00.0 Tachycardia, unspecified (principal); R94.31 Abnormal electrocardiogram [ECG] [EKG] | CPT/HCPCS: 93010 ==

== ENCOUNTER → 2023-06-11 04:47 | Outpatient (BNV) | payer OTHER, SELFPAY | PROVIDERS: Admitting Provider Student in an Organized Health Care Education/Training Program; Emergency Provider Emergency Medicine; Visit Provider Student in an Organized Health Care Education/Training Program | DX: J44.1 Chronic obstructive pulmonary disease with (acute) exacerbation (principal); J18.9 Pneumonia, unspecified organism; J96.21 Acute and chronic respiratory failure with hypoxia | CPT/HCPCS: 99223; 99232; 99239; 99499; G0180 ==

== ENCOUNTER 2023-06-15 17:58 | Inpatient (IN) | payer OTHER, SELFPAY ==
[2023-06-15] VITALS (15 sets, daily range): BP systolic 137–189; BP diastolic 68–102; PULSE 87–108; RESP 18–29; TEMP 36.3–36.7; O2SAT 88–98; BMI 39.5
--- NOTE | ~2023-06-15 | XR_ITS ---
EXAMINATION: XR CHEST CLINICAL INFORMATION: SOB, diff breathing COMPARISON: Chest radiograph 06/11/2023 TECHNIQUE: AP view of the chest was obtained. FINDINGS: The lungs are adequately expanded. Bibasilar interstitial prominence, increased from prior. Small bilateral pleural effusions are suspected. No pneumothorax. The cardiomediastinal silhouette is within normal limits for technique and unchanged. No acute osseous abnormality. XR/XR chest 1V IMPRESSION: Bibasilar interstitial prominence, increased from prior, could represent interstitial pulmonary edema.
[2023-06-15 18:45] LABS: Basophils Percent Auto 0.2 % (0-2); Eosinophils Percent Auto 0.2 % (0-4); Hematocrit 43.8 % (37.0-47.0); Hemoglobin 14.2 g/dl (12.0-16.0); Imm Gran Abs Auto 0.08 X10*3/uL (0.00-0.03); Imm Gran Pct Auto 1.7 % (0.0-0.4); Lymphocytes Percent Auto 21.9 % (20-40); MANUAL DIFF FLAG SCAN; Mean Corpuscular HGB Conc 32.4 g/dl (31.0-35.0); Mean Corpuscular Hemoglobin 30.2 pg (27.0-33.0); Mean Corpuscular Volume 93.2 fL (80.0-98.0); Mean Platelet Volume 9.9 fL (9.4-12.3); Monocytes Absolute Auto 0.5 X10*3/uL (0.1-1.2); Monocytes Percent Auto 9.6 % (2-11); Neutrophils Absolute Auto 3.1 x10*3/uL (2.0-8.3); Neutrophils Percent Auto 66.4 % (45-73); Platelet Count 177 X10*3/uL (160-400); Red Cell Distribution Width 11.8 % (11.0-16.0); SCAN SMEAR FLAG 1; White Blood Count 4.7 X10*3/uL (4.8-10.8)
[2023-06-15 18:51] LABS: INTERNATIONAL NORM RATIO 0.9 (0.9-1.1); Prothrombin Time 10.9 SEC (11.1-13.3)
--- NOTE | 2023-06-15 19:02 | PC.NURSE ---
Pt BIBA, from home reporting increased flu symptoms, SOB/Weakness throughout whole body/febrile/lack of appetite. Sinus Arrythmia. Hx COPD, multiple lymph nodes removed on right. IV Left hand by EMS & 20#LAC, labs drawn and sent to lab. Son at bedside, pt calm and cooperative. Call carballo within reach
[2023-06-15 19:03] LABS: SLIDE REVIEW VERIFIED
[2023-06-15 19:04] LABS: Lactic Acid 0.6 mmol/L (0.5-2.0)
[2023-06-15 19:08] LABS: Alanine Aminotransferase 48 U/L (0-31); Albumin Level 3.8 g/dL (3.5-5.0); Alkaline Phosphatase 60 U/L (39-117); Anion Gap 13 (12-20); Aspartate Amino Transferase 40 U/L (5-31); Bilirubin Total 0.9 mg/dL (0.0-1.0); Blood Urea Nitrogen 16 mg/dL (9-16); Calcium 9.5 mg/dL (8.4-10.2); Carbon Dioxide 40 mmol/L (22-29); Chloride 96 mmol/L (96-108); Creatinine Clr Calc Pharmacy 106.7; Estimated Glomerular Filt Rate > 60; Glucose Random 113 mg/dL (60-115); Potassium 3.4 mmol/L (3.3-5.1); Sodium 146 mmol/L (135-145); Total Protein 6.7 g/dL (6.5-8.0)
[2023-06-15 19:11] LABS: Troponin-I High Sensitivity 11.1 ng/L (<3.5-17.0)
--- NOTE | 2023-06-15 19:24 | MHC.EDTECH ---
This tech took over care of patient at 1900,hourly rounds and vitals completed,pure-wick placed by previous shift,patient is clean and dry,son at bedside and call carballo in reach
--- NOTE | 2023-06-15 19:33 | ED.GENADULT ---
HPI - General Adult General Chief complaint: Upper Respiratory Symptoms Stated complaint: flu positive, weak, SOB, ETCO2 at 5, duo neb Time Seen by Provider: 06/15/23 19:33 Source: patient, family (patient's son provided additional history and confirmed the history provided by the patient) and EMS Mode of arrival: EMS Limitations: no limitations History of Present Illness HPI narrative: Patient is a 63 year old assigned female at with a history of COPD on 2L NC at baseline, HTN, breast cancer, and recent diagnosis / hospitalization for Influenza, presenting to the emergency department today with worsening shortness of breath / difficulty breathing. Patient's son states that the patient was discharged on multiple medications for Influenza and her difficulty breathing however she continues to get worse and have difficulty breathing. Patient denies any dizziness, lightheadedness, abdominal pain, nausea, vomiting, fever, chills, blurry vision, double vision, loss of vision, chest pain,back pain, night sweats, pain with urination, increased urinary frequency, increased urinary urgency, blood in her urine or stool, syncope or a near syncopal episode, recent trauma or falls, bowel incontinence, bladder incontinence, bowel retention, bladder retention, or any other complaints at this time. Onset (ago): day(s) (2) Severity: moderate Severity scale (1-10): 6 Relieving factors: none Exacerbating factors: none Associated symptoms: shortness of breath Treatments prior to arrival: none Related Data Home Medications ?Medication ?Instructions ?Recorded ?Confirmed albuterol sulfate 90 mcg/actuation 2 puff inhalation QID PRN wheezing 02/05/20 06/11/23 aerosol inhaler montelukast 10 mg tablet 1 tab PO BEDTIME 02/05/20 06/11/23 omeprazole 20 mg capsule,delayed 1 cap PO BID@0630,1630 02/05/20 06/11/23 release sertraline 100 mg tablet 1.5 tab PO DAILY 02/05/20 06/11/23 hydroxyzine pamoate 25 mg capsule 1 cap PO BID PRN Anxiety 03/26/22 06/11/23 azithromycin 500 mg tablet 500 mg PO MOWEFR@0900 06/11/23 06/11/23 calcium citrate 315 mg 1 tab PO BID 06/11/23 06/11/23 calcium-vitamin D3 6.25 mcg (250 unit) tablet fluticasone fur. 200 mcg-umeclid 1 ea inhalation DAILY 06/11/23 06/11/23 62.5 mcg-vilant 25 mcg inhalat.powder (Trelegy Ellipta) losartan 50 mg tablet 50 mg PO DAILY 06/11/23 06/11/23 Previous Rx's ?Medication ?Instructions ?Recorded azithromycin 500 mg tablet 500 mg PO DAILY 5 days #5 tabs 06/14/23 cefuroxime axetil 500 mg tablet 500 mg PO BID #10 tabs 06/14/23 prednisone 20 mg tablet 40 mg (2 x 20 mg) PO DAILY #8 tabs 06/14/23 Allergies Allergy/AdvReac Type Severity Reaction Status Date / Time Sulfa (Sulfonamide Allergy Mild RASH Verified 06/15/23 18:26 Antibiotics) codeine [Codeine] AdvReac Mild NEAR Verified 06/15/23 18:26 SYNCOPE epoprostenol [From Flolan] AdvReac Mild NAUSEA & Verified 06/15/23 18:26 VOMITING Review of Systems Constitutional: Constitutional: Reports no additional constitutional complaints, Denies chills, Denies fever(s) and Denies night sweats Eyes: Eyes: Reports no additional eye complaints, Denies blurry vision, Denies change in vision, Denies diplopia, Denies eye discharge, Denies loss of vision and Denies eye pain ENT: Denies dizziness Cardiovascular: Cardiovascular: Reports no additional cardiovascular complaints, Denies chest pain, Denies lightheadedness, Denies Loss of Consciousness and Reports dyspnea Respiratory: Respiratory: Reports dyspnea Gastrointestinal: Gastrointestinal: Reports no additional gastrointestinal complaints, Denies abdominal pain, Denies melena, Denies hematochezia, Denies change in bowel habits and Denies change in stool character Genitourinary: Genitourinary: Denies hematuria, Denies urinary frequency, Denies dysuria, Denies urinary incontinence, Denies urinary hesitancy and Denies urinary urgency Musculoskeletal: Musculoskeletal: Reports no additional musculoskeletal complaints, Denies numbness and Denies tingling Neurologic: Denies dizziness, Denies loss of vision, Denies numbness and Denies tingling Psychiatric: Psychiatric: Reports no additional psychiatric complaints Endocrine: Endocrine: Reports no additional endocrine complaints Hematologic/Lymphatic: Hematologic/Lymphatic: Reports no additional hematologic/lymphatic complaints Allergic/Immunologic: Allergic/Immunologic: Reports no additional allergic/immunologic complaints PMFSH Past Medical History Attestation statement: The following information was validated with the patient. (all information validated with the patient's son) Source: old records reviewed, obtained from family (patient's son provided additional history and confirmed the history provided by the patient.) and nursing notes reviewed Medical History COPD (chronic obstructive pulmonary disease) Hypertension Breast CA Surgical History H/O lumpectomy Social History Social History Household Members: Family Housing: House Do you presently have visiting nurse or other home services: Yes (daughter is [employer] PROFESS[employer]) Unable to assess alcohol history related to: Unable to respond Alcohol intake: former Patient Tobacco Use Status: Former Tobacco user Smoked in Last 30 Days: No Use of substances other than those prescribed or required for medical reasons: No Advance Directives: Yes Advance Directives on File: Yes Advance Directives Date on File: 03/26/22 Recently lost weight without trying: No Nutrition Risks: No Nutritional Risk Patient : No service: No Current occupational status: disabled Physical Exam ED Vital Signs: Vital Signs - 24 hr 06/15/23 18:18 06/15/23 18:28 06/15/23 18:28 Temperature 98.1 F 98.1 F Pulse Rate 89 89 Respiratory Rate 22 H 20 Blood Pressure 189/96 H Pulse Oximetry 94 94 95 Oxygen Delivery Method Nasal Cannula Nasal Cannula Nasal Cannula Oxygen Flow Rate 5 Fraction of Inspired Oxygen 06/15/23 19:16 06/15/23 19:20 06/15/23 19:54 Temperature 97.9 F Pulse Rate 95 87 88 Respiratory Rate 29 H 18 20 Blood Pressure 174/102 H 148/77 H 161/78 H Pulse Oximetry 94 94 89 L Oxygen Delivery Method Nasal Cannula Nasal Cannula BiPAP Oxygen Flow Rate 4 4 Fraction of Inspired Oxygen 30 06/15/23 19:58 06/15/23 19:58 06/15/23 20:14 Temperature Pulse Rate 91 93 Respiratory Rate 23 H 23 H 26 H Blood Pressure 161/78 H Pulse Oximetry 93 Oxygen Delivery Method BiPAP Oxygen Flow Rate Fraction of Inspired Oxygen 06/15/23 20:24 06/15/23 21:01 06/15/23 21:19 Temperature 97.4 F 97.8 F Pulse Rate 98 98 108 H Respiratory Rate 24 H 24 H 20 Blood Pressure 160/89 H 157/80 H Pulse Oximetry 93 93 Oxygen Delivery Method BiPAP BiPAP Oxygen Flow Rate Fraction of Inspired Oxygen 30 30 06/15/23 22:27 06/15/23 23:11 Temperature Pulse Rate 101 H 98 Respiratory Rate 24 H 20 Blood Pressure 152/75 H 148/74 H Pulse Oximetry 92 93 Oxygen Delivery Method BiPAP BiPAP Oxygen Flow Rate Fraction of Inspired Oxygen BMI result Body Mass Index 39.5 Const General: cooperative, alert and awake Nutritional Appearance: well nourished Orientation/consciousness: patient oriented x3 Limitations: no limitations HENMT Head: Yes normal to inspection and Yes atraumatic Ears: hearing grossly normal bilaterally and external ears normal General nose exam: Normal external nose present, no nasal discharge noted and no epistaxis Face and sinus: Yes normal facial exam, No abrasion and No laceration Mouth: Normal oral and palatal mucosa present, no drooling and no muffled voice Eyes General: appearance normal, both eyes and all related structures Periorbital: periorbital findings normal Eyelids: Yes eyelids normal Conjunctivae: conjunctivae normal Pupils: Equal, round and reactive pupils present EOM: EOMs intact bilaterally Neck Neck: Yes normal visual inspection, Yes full ROM and Yes no lymphadenopathy Chest Chest palpation & inspection: normal inspection of the chest Resp Effort & Inspection: labored Auscultation: wheezes upper bilaterally and diminished lung sounds diffuse Cardio Rate: regular rate Rhythm: regular rhythm GI Inspection: Yes normal to inspection Neuro General: patient oriented x3 and moves all extremities Cranial nerves: Yes Equal, round and reactive pupils present Cognition (Neuro): normal cognition Motor exam (neuro): 5/5 motor strength present throughout Sensory Exam: Normal double simultaneous stimulation for sensation Coordination: [id number] test normal Extrem General: Yes normal to inspection, Yes full ROM and Yes capillary refill normal Psych Appearance: grossly normal Mental Status: mental status grossly normal Affect: normal affect Attitude: cooperative Thought process: Normal thought process present Thought content: Normal thought content present Insight: Good insight present (Psych) Medications Administered Generic Name Dose Route Start Last Admin Trade Name Freq PRN Reason Stop Dose Admin Heparin Sodium (Porcine) 5,000 unit 06/16/23 00:00 06/15/23 23:55 Heparin Sodium,Porcine 5,000 Unit/Ml Vial SUBCUT 5,000 unit Q8H JASON Administration Discontinued Medications Generic Name Dose Route Start Last Admin Trade Name Alvin PRN Reason Stop Dose Admin Albuterol Sulfate 7.5 mg/ 10 mg 06/15/23 20:52 06/15/23 21:00 Albuterol Sulfate 2.5 mg INHALE 06/15/23 20:53 10 mg ONCE ONE Administration Albuterol Sulfate 5 mg/ 0 mg 06/15/23 19:52 06/15/23 19:57 Albuterol/Ipratropium 3 ml INHALE 06/15/23 19:53 2.5 each ONCE ONE Administration Furosemide 20 mg 06/16/23 00:34 06/16/23 00:46 Furosemide 20 Mg/2 Ml Vial IVPUSH 06/16/23 00:35 20 mg ONCE ONE Administration Protocol Magnesium Sulfate/Dextrose 1 gm in 100 mls @ 100 mls/hr 06/15/23 19:38 06/15/23 21:33 Magnesium Sulfate/D5w IV 06/15/23 20:37 Infused ONCE ONE Infusion Ceftriaxone Sodium 1 gm/ 50 mls @ 100 mls/hr 06/15/23 19:38 06/15/23 20:41 Sodium Chloride IV 06/15/23 20:07 Infused ONCE ONE Infusion Methylprednisolone Sodium Succinate 60 mg 06/15/23 19:38 06/15/23 20:06 Methylprednisolone Sod Succ 125 Mg/2 Ml Vial IVPUSH 06/15/23 19:39 60 mg ONCE ONE Administration Morphine Sulfate 4 mg 06/15/23 21:44 06/15/23 21:52 Morphine Sulfate 4 Mg/Ml Cartridge IVPUSH 06/15/23 21:45 4 mg ONCE ONE Administration Protocol Medical Decision Making Medical Decision Making MDM Narrative: Patient is a 63 year old assigned female at with a history of COPD on 2L NC at baseline, HTN, breast cancer, and recent diagnosis / hospitalization for Influenza presenting to the emergency department today with worsening shortness of breath. Patient's physical exam was as noted in the physical exam portion of this note. Patient was in clear respiratory distress with diminished lung sounds and accessory muscle use. Patient's blood work showed a CO of 40. Patient's chest x-ray showed bibasilar interstitial prominence. Patient was placed on BiPaP at 12/5 40%. Patient was given a 7.5mg breathing treatment with a follow up 10mg breathing treatment. Patient continued to have accessory muscle use. Dr. Rand examined the patient with me and recommended giving IV Morphine to help slow the patient's respiration rate and allow her to tolerate the BiPaP better. Patient was given IV Morphine and did tolerate the BiPaP better with decreased accessory muscle use. I spoke to the desktop support consultant who agreed to ICU admission. Patient's clinical presentation is not consistent with sepsis (@2309). I explained my physical exam findings as well as all test results to the patient, the patient's daughter, and the patient's son. I answered all questions asked by the patient, the patient's son, and the patient's daughter. The patient, the patient's son, and the patient's daughter were all in agreement that if the patient declined and ultimately needed intubation - that was acceptable. Patient, the patient's son, and the patient's daughter verbalized agreement and understanding with this treatment plan and admission. Differential Diagnosis Differential Diagnoses: The differential diagnosis associated with the presentation includes Respiratory failure Influenza COPD Admission/Observation Consideration of admission/observation: Escalation of care including admission/observation considered Patient admitted to ICU. Consult Healthcare Provider Management of the patient was discussed with: Tailor'S Aide (spoke to the desktop support consultant as noted in the MDM Rationale portion of this note.) Lab Data [facility] Lab Attestation statement: I reviewed the patient's lab results. My interpretation of these results are in the MDM Rationale portion of this note. 06/15/23 18:38 06/15/23 18:38 Labs: Lab Results 06/15/23 06/15/23 06/15/23 Range/Units 18:38 18:47 19:40 WBC 4.7 L (4.8-10.8) X10*3/uL RBC 4.70 (4.20-5.50) X10*6/uL Hgb 14.2 (12.0-16.0) g/dl Hct 43.8 (37.0-47.0) % MCV 93.2 (80.0-98.0) fL MCH 30.2 (27.0-33.0) pg MCHC 32.4 (31.0-35.0) g/dl RDW 11.8 (11.0-16.0) % Plt Count 177 D (160-400) X10*3/uL MPV 9.9 (9.4-12.3) fL Immature Gran % (Auto) 1.7 H (0.0-0.4) % Neut % (Auto) 66.4 (45-73) % Lymph % (Auto) 21.9 (20-40) % [place] % (Auto) 9.6 (2-11) % Eos % (Auto) 0.2 (0-4) % Baso % (Auto) 0.2 (0-2) % Lymph # (Auto) 1.0 L (1.2-4.9) X10*3/uL [place] # (Auto) 0.5 (0.1-1.2) X10*3/uL Eos # (Auto) 0.0 (0.0-0.4) X10*3/uL Baso # (Auto) 0.0 (0.0-0.2) X10*3/uL Abs Immat Gran (auto) 0.08 H (0.00-0.03) X10*3/uL Absolute Neuts (auto) 3.1 (2.0-8.3) x10*3/uL Absolute Nucleated RBC 0.000 (0.0-0.012) X10*3/uL Nucleated RBC % (auto) 0.0 (0.0-0.2) /100WBC Smear Tech's Comments VERIFIED PT 10.9 L (11.1-13.3) SEC INR 0.9 (0.9-1.1) VBG pH (7.32-7.43) VBG pCO2 mmHg VBG pO2 mmHg VBG HCO3 (22-26) mmol/L VBG O2 Saturation % VBG Base Excess mmol/L Sodium 146 H (135-145) mmol/L Potassium 3.4 (3.3-5.1) mmol/L Chloride 96 (96-108) mmol/L Carbon Dioxide 40 H* D (22-29) mmol/L Anion Gap 13 (12-20) BUN 16 (9-16) mg/dL Creatinine 0.59 (0.5-1.4) mg/dL Estim Creat Clear Calc 106.7 Estimated GFR > 60 Random Glucose 113 (60-115) mg/dL Lactic Acid 0.6 (0.5-2.0) mmol/L Calcium 9.5 D (8.4-10.2) mg/dL Total Bilirubin 0.9 (0.0-1.0) mg/dL AST 40 H (5-31) U/L ALT 48 H (0-31) U/L Alkaline Phosphatase 60 (39-117) U/L Total Creatine Kinase 25 L (26-140) U/L Troponin I High Sens 11.1 D 8.4 (<3.5-17.0) ng/L B-Natriuretic Peptide 190 H (<100) pg/mL Total Protein 6.7 (6.5-8.0) g/dL Albumin 3.8 (3.5-5.0) g/dL 06/15/23 Range/Units 20:07 WBC (4.8-10.8) X10*3/uL RBC (4.20-5.50) X10*6/uL Hgb (12.0-16.0) g/dl Hct (37.0-47.0) % MCV (80.0-98.0) fL MCH (27.0-33.0) pg MCHC (31.0-35.0) g/dl RDW (11.0-16.0) % Plt Count (160-400) X10*3/uL MPV (9.4-12.3) fL Immature Gran % (Auto) (0.0-0.4) % Neut % (Auto) (45-73) % Lymph % (Auto) (20-40) % [place] % (Auto) (2-11) % Eos % (Auto) (0-4) % Baso % (Auto) (0-2) % Lymph # (Auto) (1.2-4.9) X10*3/uL [place] # (Auto) (0.1-1.2) X10*3/uL Eos # (Auto) (0.0-0.4) X10*3/uL Baso # (Auto) (0.0-0.2) X10*3/uL Abs Immat Gran (auto) (0.00-0.03) X10*3/uL Absolute Neuts (auto) (2.0-8.3) x10*3/uL Absolute Nucleated RBC (0.0-0.012) X10*3/uL Nucleated RBC % (auto) (0.0-0.2) /100WBC Smear Tech's Comments PT (11.1-13.3) SEC INR (0.9-1.1) VBG pH 7.38 (7.32-7.43) VBG pCO2 76 mmHg VBG pO2 153 mmHg VBG HCO3 45 H (22-26) mmol/L VBG O2 Saturation 99.0 % VBG Base Excess 16.2 mmol/L Sodium (135-145) mmol/L Potassium (3.3-5.1) mmol/L Chloride (96-108) mmol/L Carbon Dioxide (22-29) mmol/L Anion Gap (12-20) BUN (9-16) mg/dL Creatinine (0.5-1.4) mg/dL Estim Creat Clear Calc Estimated GFR Random Glucose (60-115) mg/dL Lactic Acid (0.5-2.0) mmol/L Calcium (8.4-10.2) mg/dL Total Bilirubin (0.0-1.0) mg/dL AST (5-31) U/L ALT (0-31) U/L Alkaline Phosphatase (39-117) U/L Total Creatine Kinase (26-140) U/L Troponin I High Sens (<3.5-17.0) ng/L B-Natriuretic Peptide (<100) pg/mL Total Protein (6.5-8.0) g/dL Albumin (3.5-5.0) g/dL Independent Interpretation I performed an independent interpretation of an: Plain X-Ray Interpretation: My interpretation is in agreement with the radiologist's impression of this imaging study. EXAMINATION: XR CHEST CLINICAL INFORMATION: SOB, diff breathing COMPARISON: Chest radiograph 06/11/2023 TECHNIQUE: AP view of the chest was obtained. FINDINGS: The lungs are adequately expanded. Bibasilar interstitial prominence, increased from prior. Small bilateral pleural effusions are suspected. No pneumothorax. The cardiomediastinal silhouette is within normal limits for technique and unchanged. No acute osseous abnormality. XR/XR chest 1V IMPRESSION: Bibasilar interstitial prominence, increased from prior, could represent interstitial pulmonary edema. Dictated By: Violeta Shin Signed By: Electronically signed by Violeta Shin 06/15/23 0678 Radiology Impression Discussion of test interpretation with radiology: I have reviewed the radiologist's reading. Independent Historian Clinical information obtained from an independent historian. History obtained from or confirmed by: EMS (EMS provided additional history and confirmed the history provided by the patient and the patient's children) and Other (patient's daughter and son provided additional history and confirmed the history provided by the patient) External Record Review External record reviewed: Inpatient record (reviewed patient's recent hospital admission for influenza and pneumonia) Chronic Conditions Patient?s care impacted by: Hypertension Critical Care Time Critical Care Time Critical Care Time: Yes Total Critical Care Time: 183 Attestation: I spent 182 minutes of Critical Care Time with this patient. This does not include time spent on separately reported billable procedures. Discharge Plan Discharge Clinical Impression: Respiratory failure Patient Disposition: Admitted As Inpatient Discharge Date/Time: 06/16/23 00:28
--- NOTE | 2023-06-15 19:42 | MHC.EDTECH ---
Repeat trop obtained and sent to lab,belongings list completed and copy placed in chart
--- NOTE | 2023-06-15 19:48 | PC.NURSE ---
Pt placed on bipap at this time. Plan for nebs
[2023-06-15] MEDS: Albuterol Sulfate 5 MG, Albuterol/Iprat 2.5/0.5MG 3 ML 3 ML INHALE (19:57)
[2023-06-15] MEDS: methylPREDNISolone Sod Succ 125 MG/2 ML VIAL 60 MG IVPUSH (20:06)
[2023-06-15] MEDS: cefTRIAXone sodium 1 GM in 0.9 % Sodium Chloride 50 ML IV (20:07)
[2023-06-15] MEDS: Magnesium Sulfate/D5W 1 GM/100 ML PIGGYBACK IV (20:08)
[2023-06-15 20:09] LABS: Troponin-I High Sensitivity 8.4 ng/L (<3.5-17.0)
--- NOTE | 2023-06-15 20:13 | PC.NURSE ---
Pt tolerating bipap well. Family at bedside.
[2023-06-15 20:14] LABS: VBG Base Excess 16.2 mmol/L; VBG HCO3 45 mmol/L (22-26); VBG pCO2 76 mmHg; VBG pH 7.38 (7.32-7.43); VBG pO2 153 mmHg
[2023-06-15 20:15] LABS: Venous Blood Gas Refer to POC result
[2023-06-15] MEDS: Albuterol Sulfate 7.5 MG, Albuterol Sulfate (0.083%) 2.5 MG 10 MG INHALE (21:00)
[2023-06-15] MEDS: Morphine Sulfate 4 MG/ML CARTRIDGE IVPUSH (21:52)
--- NOTE | 2023-06-15 21:55 | PC.NURSE ---
Pt medicated per MAR with morphine for slowing of respirations.Repositioned in bed, however scoots back down in bed promptly after being pulled up. Still tolerating bipap mask well.
[2023-06-15 22:49] LABS: B Type Natriuretic Peptide 190 pg/mL (<100)
--- NOTE | 2023-06-15 23:07 | PC.NURSE ---
Dr. Rand and Magdalena REAL at bedside for re-eval.
[2023-06-15 23:23] LABS: VBG Base Excess 12.9 mmol/L; VBG HCO3 41 mmol/L (22-26); VBG pCO2 71 mmHg; VBG pH 7.37 (7.32-7.43); VBG pO2 102 mmHg
[2023-06-15 23:24] LABS: Venous Blood Gas Refer to POC result
[2023-06-15] MEDS: Heparin Sodium,Porcine 5,000 UNIT/ML VIAL 5000 UNIT SUBCUT (23:55)
[2023-06-16] VITALS (24 sets, daily range): BP systolic 125–173; BP diastolic 57–95; PULSE 66–102; RESP 15–26; TEMP 36–37.6; O2SAT 90–95; BMI 39.1
--- NOTE | 2023-06-16 00:11 | PC.NURSE ---
Report to Paulette JUDGE for continued care.
--- NOTE | 2023-06-16 00:42 | P.HPCC_ITS ---
History of Present Illness Date of Service: 06/15/23 Attending physician on admission: Arelis Duval Chief Complaint: Dyspnea Ms. Peace is a 63-year-old female with pertinent history of breast cancer, essential hypertension, mood disorder, chronic hypoxemic respiratory failure due to COPD on baseline 2 L supplemental oxygen and recent hospitalization for acute on chronic hypoxemic respiratory failure with pneumonia and Human Metapneumovirus on 06/10 - 06/14/2023. She returned to the emergency department today with worsening shortness of breath and difficulty breathing. The patient denied dizziness, lightheadedness, abdominal pain, nausea, vomiting, fever, chills, chest pain, urinary problem, or any other complaints.? On arrival to the ED, the patient's blood pressure 189/96, heart rate 89,? respiratory rate 22, O2 Sat 94% 5L NC.? She was afebrile 98.1 F. Laboratory data significant for serum bicarb 40, lactic acid 0.6,? troponin 11.1. VBG? 7.38/76/153/45. UA suggestive of UTI. Chest x-ray with bibasilar pulmonary edema. ED course:? the patient received 1 g Mag sulfate, methylprednisolone 60 mg.? Ceftriaxone 1 g, ? Morphine 4 mg, and two albuterol treatments. She was placed on BiPAP. Review of Systems 2 Review of Systems: Yes all other systems are reviewed and are negative Constitutional: Constitutional: Reports as per HPI, Reports no additional constitutional complaints and Denies headache(s) ENT: Denies dizziness and Denies headache(s) Cardiovascular: Cardiovascular: Denies chest pain, Denies syncope, Denies rapid heart rate, Reports dyspnea and Denies slow heart rate Respiratory: Respiratory: Reports dyspnea Gastrointestinal: Gastrointestinal: Denies abdominal pain, Denies nausea and Denies vomiting Musculoskeletal: Musculoskeletal: Denies numbness and Denies tingling Neurologic: Denies confusion, Denies dizziness, Denies syncope, Denies headache(s), Denies numbness and Denies tingling Psychiatric: Psychiatric: Denies confusion PMF Past Medical History Medical History COPD (chronic obstructive pulmonary disease) Hypertension Breast CA Surgical History Surgical History H/O lumpectomy Social History Social History Household Members: Family Housing: House Do you presently have visiting nurse or other home services: Yes (daughter is TIRE TECHNICIAN) Unable to assess alcohol history related to: Unable to respond Alcohol intake: former Patient Tobacco Use Status: Former Tobacco user Advance Directives Date on File: 03/26/22 service: No Current occupational status: disabled Meds Allergies Allergy/AdvReac Type Severity Reaction Status Date / Time Sulfa (Sulfonamide Allergy Mild RASH Verified 06/15/23 18:26 Antibiotics) codeine [Codeine] AdvReac Mild NEAR Verified 06/15/23 18:26 SYNCOPE epoprostenol [From Flolan] AdvReac Mild NAUSEA & Verified 06/15/23 18:26 VOMITING Active Medications: Current Medications Albuterol/Ipratropium (Albuterol/Iprat 2.5/0.5mg 3 Ml Ampul.Neb) 3 ml INHALE RQ4H WHILE AWAKE [facility] Furosemide (Furosemide 20 Mg/2 Ml Vial) 20 mg IVPUSH ONCE ONE; Protocol Stop: 06/16/23 00:35 Heparin Sodium (Porcine) (Heparin Sodium,Porcine 5,000 Unit/Ml Vial) 5,000 unit SUBCUT Q8H JASON Last Admin: 06/15/23 23:55 Dose: 5,000 unit Methylprednisolone Sodium Succinate (Methylprednisolone Sod Succ 40 Mg/Ml Vial) 40 mg IVPUSH Q12H [facility] Home Medications ?Medication ?Instructions ?Recorded ?Confirmed ?Last Taken ?Type albuterol sulfate 90 mcg/actuation 2 puff inhalation QID PRN wheezing 02/05/20 06/11/23 06/07/23 History aerosol inhaler montelukast 10 mg tablet 1 tab PO BEDTIME 02/05/20 06/11/23 06/07/23 History omeprazole 20 mg capsule,delayed 1 cap PO BID@0630,1630 02/05/20 06/11/23 06/07/23 History release sertraline 100 mg tablet 1.5 tab PO DAILY 02/05/20 06/11/23 06/07/23 History hydroxyzine pamoate 25 mg capsule 1 cap PO BID PRN Anxiety 03/26/22 06/11/23 06/07/23 History azithromycin 500 mg tablet 500 mg PO MOWEFR@0900 06/11/23 06/11/23 06/07/23 History calcium citrate 315 mg 1 tab PO BID 06/11/23 06/11/23 06/07/23 History calcium-vitamin D3 6.25 mcg (250 unit) tablet fluticasone fur. 200 mcg-umeclid 1 ea inhalation DAILY 06/11/23 06/11/23 06/07/23 History 62.5 mcg-vilant 25 mcg inhalat.powder (Trelegy Ellipta) losartan 50 mg tablet 50 mg PO DAILY 06/11/23 06/11/23 06/07/23 History Physical Exam 2 Vital Signs: Vital Signs: Last Vital Signs Temp 97.0 F 06/16/23 00:39 Pulse 98 06/16/23 00:39 Resp 23 H 06/16/23 00:39 BP 144/85 H 06/16/23 00:39 Pulse Ox 94 06/16/23 00:39 O2 Del Method BiPAP 06/16/23 00:39 O2 Flow Rate 4 06/15/23 19:20 FiO2 35 06/16/23 00:39 Oxygen Flow Rate 5 06/15/23 18:28 BMI result Body Mass Index 39.5 Const: General: No confusion Orientation/consciousness: No confusion HEENT: Head: Yes normocephalic and Yes atraumatic General nose exam: Normal external nose present (Nares patent, septum midline, sinuses nontender bilaterally.) Mouth: Normal oral and palatal mucosa present (No thrush, tongue in midline, mucosa dry from Bipap.) Throat: Yes other (No erythema, no exudate.) Neck: Neck: Yes supple (no thyromegaly, trachea midline.) Carotids: normal carotid upstroke Resp: Effort & Inspection: normal respiratory effort, able to speak in complete sentences, no audible wheezes, not labored, no respiratory distress and no use of accessory muscles Auscultation: diminished lung sounds bilateral throughout Cardio: Jugular venous distension: no JVD Rate: regular rate Rhythm: r egular rhythm Heart sounds: no gallops, no murmurs and no rubs Peripheral pulses: Peripheral pulses 2+ throughout GI: Palpation (GI): Soft to palpation (nondistended.) and nontender Neuro: General: No confusion Extrem: General: Yes full ROM, Yes capillary refill normal and Yes no clubbing, cyanosis or edema Psych: Appearance: grossly normal Mental Status: mental status grossly normal Speech and movement: Normal speech and movement present Affect: n ormal affect (pleasant) Attitude: cooperative Results Labs 06/15/23 18:38 06/15/23 18:38 Labs: Laboratory Results - last 24 hr 06/15/23 06/15/23 06/15/23 18:38 18:47 19:40 MCV 93.2 MCH 30.2 MCHC 32.4 RDW 11.8 Plt Count 177 D MPV 9.9 Immature Gran % (Auto) 1.7 H Neut % (Auto) 66.4 Lymph % (Auto) 21.9 [place] % (Auto) 9.6 Eos % (Auto) 0.2 Baso % (Auto) 0.2 Lymph # (Auto) 1.0 L [place] # (Auto) 0.5 Eos # (Auto) 0.0 Baso # (Auto) 0.0 Abs Immat Gran (auto) 0.08 H Absolute Neuts (auto) 3.1 Absolute Nucleated RBC 0.000 Nucleated RBC % (auto) 0.0 Smear Tech's Comments VERIFIED PT 10.9 L INR 0.9 VBG pH VBG pCO2 VBG pO2 VBG HCO3 VBG O2 Saturation VBG Base Excess Anion Gap 13 Estim Creat Clear Calc 106.7 Estimated GFR > 60 Random Glucose 113 Lactic Acid 0.6 Calcium 9.5 D Total Bilirubin 0.9 AST 40 H ALT 48 H Alkaline Phosphatase 60 Total Creatine Kinase 25 L Troponin I High Sens 11.1 D 8.4 B-Natriuretic Peptide 190 H Total Protein 6.7 Albumin 3.8 06/15/23 06/15/23 20:07 23:17 MCV MCH MCHC RDW Plt Count MPV Immature Gran % (Auto) Neut % (Auto) Lymph % (Auto) [place] % (Auto) Eos % (Auto) Baso % (Auto) Lymph # (Auto) [place] # (Auto) Eos # (Auto) Baso # (Auto) Abs Immat Gran (auto) Absolute Neuts (auto) Absolute Nucleated RBC Nucleated RBC % (auto) Smear Tech's Comments PT INR VBG pH 7.38 7.37 VBG pCO2 76 71 VBG pO2 153 102 VBG HCO3 45 H 41 H VBG O2 Saturation 99.0 99.0 VBG Base Excess 16.2 12.9 Anion Gap Estim Creat Clear Calc Estimated GFR Random Glucose Lactic Acid Calcium Total Bilirubin AST ALT Alkaline Phosphatase Total Creatine Kinase Troponin I High Sens B-Natriuretic Peptide Total Protein Albumin Imaging Radiologist's Impressions: Impressions Chest X-Ray 06/15/23 20:33 IMPRESSION: Bibasilar interstitial prominence, increased from prior, could represent interstitial pulmonary edema. Assessment and Plan (1) Acute on chronic respiratory failure with hypoxia and hypercapnia: Status: Acute (2) COPD with exacerbation: Status: Acute (3) Urinary tract infection: Qualifiers: Hematuria presence: with hematuria Urinary tract infection type: site unspecified Qualified Code(s): N39.0 - Urinary tract infection, site not specified; R31.9 - Hematuria, unspecified Status: Inactive Plan 63-year-old female with history of breast cancer, essential hypertension, mood disorder, chronic hypoxemic respiratory failure due to COPD on baseline 2 L supplemental oxygen admitted for management of acute hypercapnic, hypoxemic respiratory failure. Neuro: ? No acute issues. Cardiac: ? BNP elevated. No previous history of heart failure. Lasix. Echocardiogram. Monitor volume status. Pulmonary: Acute on chronic respiratory failure with hypercapnia due to COPD exacerbation vs pulmonary edema.? Continue BiPAP. Lasix. DuoNebs. Solu-medrol. VBG. Empiric antibiotics given in ED.? Renal:? No acute issues. Monitor renal indices and urine output.? Endo: No acute issues. GI: ? No acute issues. ID:? UA suggestive of UTI. Continue Ceftriaxone. Cultures pending. No indication of sepsis. Heme/Onc:? No acute issues. Psych:? No acute issues. Prophylaxis:? Heparin/pneumatic hoses Diet:? NPO? Patient's care was discussed in detail with Dr. Duval.? She is aware of all the above as well as the plan of care for this patient. Total time managing care of this patient today: 60 minutes.
[2023-06-16] MEDS: Furosemide 20 MG/2 ML VIAL IVPUSH (00:46)
[2023-06-16 05:27] LABS: VBG Base Excess 26.5 mmol/L; VBG HCO3 51 mmol/L (22-26); VBG pCO2 51 mmHg; VBG pH 7.61 (7.32-7.43); VBG pO2 86 mmHg
--- NOTE | 2023-06-16 05:33 | PC.NURSE ---
Pt admitted to ICU from ED at approx 0000. Upon initial assessment- pt A&Ox4, calm/cooperative, ROSE. Afebrile. NSR on tele, HR 60s, EKG obtained per order. On BiPAP 12//35%, tolerating well, LS diminished throughout, denies SOB/dyspnea. Urinary catheter inserted per order and Lasix 20 mg IVP given x1 per MAR. Skin overall intact. Family at bedside upon arrival to unit, both pt/family aware of pt status/plan of care. Bed locked in lowest position, call carballo in reach.
--- NOTE | 2023-06-16 06:00 | ECG_ITS ---
Test Reason : rhythm check Blood Pressure : / mmHG Vent. Rate : 067 BPM Atrial Rate : 067 BPM P-R Int : 144 ms QRS Dur : 078 ms QT Int : 454 ms P-R-T Axes : 075 -25 022 degrees QTc Int : 479 ms Normal sinus rhythm Possible Left atrial enlargement T wave abnormality, consider anterior ischemia Abnormal ECG When compared to the previous EKG of may 2023, slower rate Referred By: Dyan Valladares Electronically Signed By:SARIAH SAUCEDA
[2023-06-16 06:07] LABS: Albumin Level 3.3 g/dL (3.5-5.0); Anion Gap 19 (12-20); Blood Urea Nitrogen 16 mg/dL (9-16); Calcium 8.9 mg/dL (8.4-10.2); Carbon Dioxide 36 mmol/L (22-29); Chloride 93 mmol/L (96-108); Estimated Glomerular Filt Rate > 60; Glucose Random 130 mg/dL (60-115); Magnesium 2.1 mg/dL (1.6-2.6); Phosphorus 3.7 mg/dL (2.7-4.5); Potassium 3.8 mmol/L (3.3-5.1); Sodium 144 mmol/L (135-145)
[2023-06-16 06:10] LABS: Venous Blood Gas Refer to POC result
[2023-06-16 06:29] LABS: Hematocrit 40.3 % (37.0-47.0); Hemoglobin 13.1 g/dl (12.0-16.0); Mean Corpuscular HGB Conc 32.5 g/dl (31.0-35.0); Mean Corpuscular Hemoglobin 29.7 pg (27.0-33.0); Mean Corpuscular Volume 91.4 fL (80.0-98.0); PLT CLUMP 1; Red Blood Count 4.41 X10*6/uL (4.20-5.50); Red Cell Distribution Width 11.7 % (11.0-16.0)
[2023-06-16 06:30] LABS: White Blood Count 2.7 X10*3/uL (4.8-10.8)
--- NOTE | 2023-06-16 07:10 | PHA.MEDREC ---
Pharmacy Consult ? Medication Reconciliation Pharmacy has completed the medication reconciliation. Patient recently discharged on 06/14/23. Utilized discharge meds and claim history to cross reference.
[2023-06-16] MEDS: methylPREDNISolone Sod Succ 40 MG/ML VIAL IVPUSH ×2 (07:35→20:30)
[2023-06-16] MEDS: Heparin Sodium,Porcine 5,000 UNIT/ML VIAL 5000 UNIT SUBCUT ×2 (07:35→16:21)
--- NOTE | 2023-06-16 07:39 | PM.EVENT ---
Event Note Date of Service: 06/16/23 Event Note: Patient is a 63 Y F with prior breast cancer, COPD on home 2 L NC, recent admission for COPD exacerbation d/t metapneumovirus, discharged 06/13, represented 06/14 w/ worsening dyspnea, placed on BiPAP, with interval improvement of dyspnea; of note, patient also found to have urinary tract infection; upon assessment 06/15 AM, patient awake, alert, oriented, in no acute distress, no appreciable wheezing, no appreciable accessory muscle use; plan to continue duonebs, steroids, empiric antibiotics; to assess off BiPAP, if tolerated, possible downgrade to floor Time Spent With Patient Time: Total time managing care of this patient today ____ minutes.
[2023-06-16] MEDS: Azithromycin 500 MG in 0.9 % Sodium Chloride 250 ML 125 MG IV (07:50)
[2023-06-16 08:07] LABS: Band Neutrophils Percent 9 % (3-5); Lymphocytes Absolute Manual 0.3 X10*3/uL (1.2-4.9); Lymphocytes Percent Manual 10 % (20-40); Metamyelocytes Percent 1 %; Monocytes Absolute Manual 0.2 X10*3/uL (0.1-1.2); Monocytes Percent Manual 7 % (2-11); Neutrophils Absolute Manual 2.2 X10*3/uL (2.0-8.3); Neutrophils Percent Manual 73 % (45-73); RBC Morphology NORMAL
[2023-06-16] MEDS: Albuterol/Iprat 2.5/0.5MG 3 ML AMPUL.NEB INHALE ×4 (08:07→18:59)
[2023-06-16 08:08] LABS: Platelet Count 160 X10*3/uL (160-400); Platelet Estimate NORMAL (NORMAL); Platelet Morphology Comment NORMAL
--- NOTE | 2023-06-16 14:26 | MHC.CM.PN ---
Attempted to meet with patient in regards to discharge planning. Patient currently sleeping. Spoke with patient's daughter/HCP, Kristen via telephone at [phone]. Patient lives alone, ambulates independently, has oxygen through [employer] and [employer]ATION WORK[employer] hours through [employer]. Kristen is patient's CIRCULATION WORKER. Kristen and her are only [address] from the patient. PCP verified. Copy of HCP verified to be on file. Patient was recently d/c'd from [facility] with the Flu. Patient has been to [facility] in the past. Patient liked the facility but Kristen felt they didn't provide enough rehab. Kristen states patient can be stubborn at time and feels she would do better with home physical therapy. [facility] will need to be contacted during normal business hours to see if they will provide therapy or if it should be referred out. IMM explained and left at patient's bedside. Patient's son will transport patient home when medically stable. Kristen gave to her 5th child last week. She will not be able to physically get to the hospital to visit her mother. However she requests to be updated via telephone about patient. Continue to monitor for d/c needs.
--- NOTE | 2023-06-16 15:47 | PM.EVENT ---
Event Note Date of Service: 06/17/23 Event Note: This patient is seen and examined by ICU today-transferred to the floor this morning. Physical exam : unchanged as icu. and assessment and plan coordinated in APCs note, Agree with the plan in addition: Patient was admitted for COPD exacerbation secondary to human metapneumovirus virus URI-went home and dyspnea got worse came to the hospital, started on BiPAP and nebs, steroids ? Question of UTI: farrukh on ceftriaxone Time Spent With Patient Time: Total time managing care of this patient today ____ minutes.
[2023-06-16] MEDS: cefTRIAXone sodium 1 GM in 0.9 % Sodium Chloride 50 ML IV (20:50)
--- NOTE | 2023-06-16 22:18 | PC.RT ---
Pt placed on Nocturnal Sleep Study. PT on Room Air dropped down to 76% SPO2 then increased to 1L w/ SPO2 78%, 2L 80%, 3L 84% 4L 88%, 5L 94%. Pt currently on 5L w/ SPO2 94% HR 84. Batteries were changed. Will monitor pt, pt on continuous monitoring.
[2023-06-17] VITALS (14 sets, daily range): BP systolic 136–193; BP diastolic 63–92; PULSE 67–94; RESP 16–20; TEMP 36–36.4; O2SAT 89–98; BMI 39.3
[2023-06-17] MEDS: Heparin Sodium,Porcine 5,000 UNIT/ML VIAL 5000 UNIT SUBCUT ×3 (00:37→17:52)
--- NOTE | 2023-06-17 02:55 | PC.RT ---
RT checked on pt and pt's SPO2 95% on 5L w/ HR 72. Pt still on the Nocturnal Sleep Study. Will continue to monitor
--- NOTE | 2023-06-17 05:11 | PC.RT ---
Sleep study end at 0505
[2023-06-17] MEDS: hydrOXYzine HCL 25 MG TABLET PO ×2 (05:43→20:23)
--- NOTE | 2023-06-17 07:00 | CA_ITS ---
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 There is moderately increased left ventricular wall thickness. The visually estimated ejection fraction is between 55-60%. - E/E prime ratio is between 8 and 15 consistent with indeterminate filling pressures. - Normal right ventricular cavity size and systolic function. - Moderately elevated right atrial pressure. There is no evidence of pulmonary hypertension. Findings Procedure Information Contrast agent, definity, is being given per protocol without apparent complications. Left Ventricle Normal left ventricular size and systolic function. There is moderately increased left ventricular wall thickness. The visually estimated ejection fraction is between 55-60%. Abnormal diastolic function is noted. Spectral Doppler is indicative of an impaired relaxation filling pattern. E/E prime ratio is between 8 and 15 consistent with indeterminate filling pressures. Right Ventricle Normal right ventricular cavity size and systolic function. Atria The left atrium is mildly dilated. Aortic Valve There is a normal trileaflet aortic valve. There is no aortic valve stenosis. There is trace (trivial) aortic valve regurgitation. Mitral Valve The mitral valve appears normal. There is no mitral valve regurgitation. There is no mitral valve stenosis. Pulmonic Valve The pulmonic valve is normal. There is no pulmonic valve regurgitation. Tricuspid Valve Normal tricuspid valve structure. There is trace tricuspid valve regurgitation. Moderately elevated right atrial pressure. There is no evidence of pulmonary hypertension. Great Vessels All visible segments of the aorta are normal in size. Venous The inferior vena cava is dilated and collapses greater than 50% with inspiration. Pericardium/Pleural There is no evidence of pericardial effusion. Measurements 2D Linear Measurements IVSd: 1.45 0.6-0.9/0.6-1.0 cm LVIDd: 4.29 3.9-5.3/4.2-5.9 cm LVIDd Index: 2.18 2.4-3.2/2.2-3.1 cm/m2 LVIDs: 3.09 2.0-3.6 cm LVPWd: 1.35 0.7-1.1 cm Ao Root: 3.10 2.1-3.5 cm LA Diam: 4.00 2.7-3.8/3.0-4.0 cm LAIDs Index: 2.03 1.5-2.3 cm/m2 LV Mass: 288.55 67-162/88-224 g LV Mass Index: 146.47 43-95/49-115 g/m2 LVOT Diam: 2.00 3.0+(-)1.3 cm Mitral Valve MV Pk E: 0.84 MV PK A: 1.15 MV Decel Time: 119.00 E/A: 0.70 E'Lateral: 6.85 E'Medial: 6.20 E/E' Med: 13.60 E/E' Lat: 12.30 PHT: 35.00 MVA PHT: 6.29 Decel Traill: 7.10 Aortic Valve AoV Pk Gurmeet: 1.33 AoV Mn Gurmeet: 0.85 AoV VTI: 0.32 AoV Pk Grad: 7.00 Aov Mn Grad: 4.00 SUPA Cont.VTI: 2.21 LVOT LVOT Pk Gurmeet: 0.85 LVOT Mn Gurmeet: 0.55 LVOT VTI: 0.22 LVOT Pk Grad: 3.00 LVOT Mn Grad: 1.00 LVOT Diam: 2.00 LVOT Area: 3.14 Diastolic Function MV Pk E: 0.84 MV Pk A: 1.15 E/A: 0.70 E'Medial: 6.20 E/E' Med: 13.60 E' Laterial: 6.85 E/E' Lat: 12.30 Right Ventricle TAPSE (mm): 29.00 TVS' Gurmeet: 10.00 Tricuspid Valve TR Pk Gurmeet: 2.77 TR Pk Grad: 31.00 RA Press: 3.00 RVSP: 34.00 Great Vessels Aorta Ao Root-2D: 3.10 2.0-3.7 cm Ao Asc: 3.10 2.1-3.4 cm Pulmonary Valve PV Pk Gurmeet: 1.00 Peak PV Grad: 4.00 Updated in Other Vendor System with Status of Final Abraham Mathew MD electronically signed on 06/17/2023 12:18:45 PM with status of Final
[2023-06-17] MEDS: Albuterol/Iprat 2.5/0.5MG 3 ML AMPUL.NEB INHALE ×4 (07:35→18:51)
[2023-06-17] MEDS: methylPREDNISolone Sod Succ 40 MG/ML VIAL IVPUSH ×2 (09:09→19:43)
[2023-06-17] MEDS: Losartan Potassium 50 MG TABLET PO (09:10)
[2023-06-17] MEDS: Montelukast Sodium 10 MG TABLET PO ×2 (09:10→19:43)
[2023-06-17] MEDS: Sertraline HCL 50 MG TABLET 150 MG PO (09:10)
[2023-06-17] MEDS: Omeprazole 20 MG CAPSULE.DR PO ×2 (09:22→17:52)
[2023-06-17] MEDS: Azithromycin 500 MG in 0.9 % Sodium Chloride 250 ML 125 MG IV (09:24)
[2023-06-17] MEDS: Fluticasone/Umeclidinium/Vilanterol 200/62.5/25 BLST.W.DEV 1 PUFF INHALE (11:20)
--- NOTE | 2023-06-17 12:19 | P.CONPL_ITS ---
History of Present Illness History of Present Illness Consult date: 06/17/23 Chief complaint: Dyspnea Narrative: 63-year-old lady with underlying history of breast cancer, hypertension, ?pulmonary arterial hypertension, COPD on supplemental oxygen at 2 L previously followed at [facility], recently with no pulmonary follow-up, also with recent admission to [facility] for COPD exacerbation secondary to metapneumovirus requiring admission on 06/16/2023 with COPD exacerbation, treated with empiric antibiotics for community-acquired pneumonia, systemic glucocorticoids and nebulized bronchodilators. Laboratory studies demonstrated chronic CO2 retention. Review of Systems 2 Constitutional: Constitutional: Denies daytime sleepiness, Denies excessive sweating, Denies fatigue, Denies fever(s), Denies lethargy, Denies malaise, Denies night sweats, Denies snoring and Denies weight loss Eyes: Eyes: Denies blurry vision and Denies itchy eyes ENT: Denies nasal congestion, Denies post nasal drip, Denies sinus pain, Denies sinus pressure and Denies other ( Thrush) Cardiovascular: Cardiovascular: Denies chest pain, Denies pedal edema, Denies dyspnea, Reports dyspnea on exertion, Denies orthopnea and Denies paroxysmal nocturnal dyspnea Respiratory: Respiratory: Denies cough, Denies hemoptysis, Denies excessive phlegm production, Denies dyspnea, Reports dyspnea on exertion, Denies snoring and Denies wheezing Gastrointestinal: Gastrointestinal: Denies abdominal pain and Denies heartburn Musculoskeletal: Musculoskeletal: Denies myalgias, Denies arthralgias and Denies joint swelling Integumentary/Breasts: Skin/Breast: Denies rash Neurologic: Denies memory loss and Denies seizure-like activity Psychiatric: Psychiatric: Denies abnormal sleep pattern, Denies anxiety and Denies memory loss Endocrine: Endocrine: Denies excessive sweating, Denies fatigue and Denies heat intolerance Hematologic/Lymphatic: Hematologic/Lymphatic: Denies easy bruising Allergic/Immunologic: Allergic/Immunologic: Denies itchy eyes, Denies seasonal rhinorrhea and Denies wheezing PMFSH Past Medical History Medical History COPD (chronic obstructive pulmonary disease) Hypertension Breast CA Surgical History Surgical History H/O lumpectomy Social History Social History Household Members: Family Housing: House Do you presently have visiting nurse or other home services: Yes (daughter is HEATING AND REFRIGERATION INSPECTOR) Unable to assess alcohol history related to: Unable to respond Alcohol intake: former Patient Tobacco Use Status: Former Tobacco user Smoked in Last 30 Days: No Use of substances other than those prescribed or required for medical reasons: No Currently Displaying Signs/Symptoms of Drug Intoxication Withdrawal: No Advance Directives: Yes Advance Directives on File: Yes Advance Directives Date on File: 03/26/22 Recently lost weight without trying: No Nutrition Risks: No Nutritional Risk Patient : No service: No Current occupational status: disabled Meds Allergies Allergy/AdvReac Type Severity Reaction Status Date / Time Sulfa (Sulfonamide Allergy Mild RASH Verified 06/15/23 18:26 Antibiotics) codeine [Codeine] AdvReac Mild NEAR Verified 06/15/23 18:26 SYNCOPE epoprostenol [From Flolan] AdvReac Mild NAUSEA & Verified 06/15/23 18:26 VOMITING Active Medications: Current Medications Albuterol Sulfate (Albuterol Sulfate (0.042%) 1.25 Mg/3 Ml Vial.Neb) 1.25 mg INHALE RQ4H PRN PRN Reason: Wheezing Albuterol/Ipratropium (Albuterol/Iprat 2.5/0.5mg 3 Ml Ampul.Neb) 3 ml INHALE RQ4H WHILE AWAKE [facility] Last Admin: 06/17/23 11:20 Dose: 3 ml Fluticasone/Umeclidinium/Vilanterol (Fluticasone/Umeclidinium/Vilanterol 200/62.5/25 Blst.W.Dev) 1 puff INHALE RDAILY [facility] Last Admin: 06/17/23 11:20 Dose: 1 puff Heparin Sodium (Porcine) (Heparin Sodium,Porcine 5,000 Unit/Ml Vial) 5,000 unit SUBCUT Q8H [facility] Last Admin: 06/17/23 09:09 Dose: 5,000 unit Hydroxyzine HCl (Hydroxyzine Hcl 25 Mg Tablet) 25 mg PO BID PRN PRN Reason: Anxiety Last Admin: 06/17/23 05:43 Dose: 25 mg Ceftriaxone Sodium 1 gm/ (Sodium Chloride) 50 mls @ 100 mls/hr IV Q24H [facility] Last Infusion: 06/17/23 00:12 Dose: Infused Azithromycin 500 mg/ Sodium (Chloride) 250 mls @ 125 mls/hr IV Q24H [facility] Last Infusion: 06/17/23 11:47 Dose: Infused Losartan Potassium (Losartan Potassium 50 Mg Tablet) 50 mg PO DAILY [facility]; Protocol Last Admin: 06/17/23 09:10 Dose: 50 mg Methylprednisolone Sodium Succinate (Methylprednisolone Sod Succ 40 Mg/Ml Vial) 40 mg IVPUSH Q12H [facility] Last Admin: 06/17/23 09:09 Dose: 40 mg Montelukast Sodium (Montelukast Sodium 10 Mg Tablet) 10 mg PO BEDTIME [facility] Last Admin: 06/17/23 09:10 Dose: 10 mg Omeprazole (Omeprazole 20 Mg Capsule.Dr) 20 mg PO BID@0630,1630 [facility] Last Admin: 06/17/23 09:22 Dose: 20 mg Sertraline HCl (Sertraline Hcl 50 Mg Tablet) 150 mg PO DAILY [facility] Last Admin: 06/17/23 09:10 Dose: 150 mg Theophylline (Theophylline Anhydrous Er 400 Mg Tab.Er.24h) 400 mg PO DAILY [facility] Home Medications ?Medication ?Instructions ?Recorded ?Confirmed ?Last Taken ?Type albuterol sulfate 90 mcg/actuation 2 puff inhalation Q6H PRN wheezing 02/05/20 06/16/23 06/07/23 History aerosol inhaler montelukast 10 mg tablet 1 tab PO BEDTIME 02/05/20 06/16/23 06/07/23 History omeprazole 20 mg capsule,delayed 1 cap PO BID@0630,1630 02/05/20 06/16/23 06/07/23 History release sertraline 100 mg tablet 1.5 tab PO DAILY 02/05/20 06/16/23 06/07/23 History hydroxyzine pamoate 25 mg capsule 1 cap PO BID PRN Anxiety 03/26/22 06/16/23 06/07/23 History azithromycin 500 mg tablet 500 mg PO MOWEFR@0900 06/11/23 06/16/23 06/07/23 History calcium citrate 315 mg 1 tab PO BID 06/11/23 06/16/23 06/07/23 History calcium-vitamin D3 6.25 mcg (250 unit) tablet fluticasone fur. 200 mcg-umeclid 1 ea inhalation DAILY 06/11/23 06/16/23 06/07/23 History 62.5 mcg-vilant 25 mcg inhalat.powder (Trelegy Ellipta) losartan 50 mg tablet 50 mg PO DAILY 06/11/23 06/16/23 06/07/23 History Physical Exam 2 Vital Signs: Vital Signs: Last Vital Signs Temp 97.6 F 06/17/23 11:48 Pulse 75 06/17/23 11:48 Resp 20 06/17/23 11:48 BP 146/92 H 06/17/23 11:48 Pulse Ox 92 06/17/23 11:48 O2 Del Method Nasal Cannula 06/17/23 11:48 O2 Flow Rate 2 06/17/23 11:48 FiO2 35 06/17/23 04:00 Oxygen Flow Rate 5 06/15/23 18:28 BMI result Body Mass Index 39.3 Const: General: no acute distress and alert Nutritional Appearance: not obese Orientation/consciousness: Other orientation findings ( oriented) HEENT: Head: Yes atraumatic Eyes: General: appearance normal, both eyes and all related structures S clerae: sclerae normal EOM: EOMs intact bilaterally Neck: Neck: Yes supple Lymphatic: no lymphadenopathy noted Resp: Effort & Inspection: normal respiratory effort and no use of accessory muscles Auscultation: clear to auscultation bilaterally Cardio: Rate: regular rate Rhythm: regular rhythm Heart sounds: no gallops, no murmurs and no rubs Skin: General skin exam: other ( warm) Extrem: General: No clubbing, No cyanosis and No edema Results Laboratory Findings 06/16/23 05:16 06/16/23 05:16 ABG, PT/INR, D-dimer: PT/INR, D-dimer PT 10.9 SEC (11.1-13.3) L 06/15/23 18:38 INR 0.9 (0.9-1.1) 06/15/23 18:38 Abnormal lab findings: Abnormal Labs 06/15/23 06/15/23 06/15/23 18:38 20:07 23:17 WBC 4.7 L Immature Gran % (Auto) 1.7 H Lymph # (Auto) 1.0 L Abs Immat Gran (auto) 0.08 H Band Neutrophils % Lymphocytes % (Manual) Lymphocytes # (Manual) PT 10.9 L VBG pH VBG HCO3 45 H 41 H Sodium 146 H Chloride Carbon Dioxide 40 H* D Random Glucose AST 40 H ALT 48 H Total Creatine Kinase 25 L B-Natriuretic Peptide 190 H Albumin 06/16/23 06/16/23 05:16 05:19 WBC 2.7 L Immature Gran % (Auto) Lymph # (Auto) Abs Immat Gran (auto) Band Neutrophils % 9 H Lymphocytes % (Manual) 10 L Lymphocytes # (Manual) 0.3 L PT VBG pH 7.61 H* VBG HCO3 51 H Sodium Chloride 93 L Carbon Dioxide 36 H Random Glucose 130 H AST ALT Total Creatine Kinase B-Natriuretic Peptide Albumin 3.3 L Microbiology: Microbiology 06/15/23 18:47 Blood - Venous Blood Culture - Preliminary No growth after 24 hours. 06/15/23 18:47 Blood - Venous Blood Culture - Preliminary No growth after 24 hours. Assessment and Plan (1) Hypoventilation associated with obesity: Status: Acute (2) COPD (chronic obstructive pulmonary disease): Status: Acute (3) Chronic hypoxic respiratory failure: Status: Acute (4) History of pulmonary hypertension: Status: Acute Plan Impression: 63-year-old lady with underlying supplemental oxygen dependent COPD admitted with COPD exacerbation. Patient appears to have underlying hypoventilation syndrome and she states that she also has history of pulmonary arterial hypertension. Recommendations: Consider discontinuation of ceftriaxone. Agree with continuation with azithromycin, nebulized bronchodilators, and systemic glucocorticoids. Will obtain 2D echocardiogram. Will add acetazolamide. Procedures Date of Service Date of Service: 06/17/23
[2023-06-17] MEDS: acetaZOLAMIDE sodium 500 MG VIAL 375 MG IVPUSH ×2 (13:21→19:43)
[2023-06-17] MEDS: Theophylline Anhydrous ER 400 MG TAB.ER.24H PO (13:22)
--- NOTE | 2023-06-17 14:11 | HO.PM.IMPN ---
Subjective Subjective Date of Service: 06/17/23 Interval History: copd exceerbation,?uti recent metapneumovirus virus URI(last week) Review of Systems sob somewhat improving but still feels sob with excersion has cough has some anxiety symtoms Physical Exam Vital Signs: Vital Signs: Last Vital Signs Temp 97.6 F 06/17/23 11:48 Pulse 75 06/17/23 11:48 Resp 20 06/17/23 11:48 BP 146/92 H 06/17/23 11:48 Pulse Ox 92 06/17/23 11:48 O2 Del Method Nasal Cannula 06/17/23 11:48 O2 Flow Rate 2 06/17/23 11:48 FiO2 35 06/17/23 04:00 Oxygen Flow Rate 5 06/15/23 18:28 BMI result Body Mass Index 39.3 Appearance: Alert.? Oriented X3.? anxious. cvs: rrr, [id number] , no murmur res: fair air entry,b/l wheezing abd: no rebound or guarding ,nt, bs present. ext pulses present , no cyanosis . neuro: axo3 , nonfocal. Objective Data Active Medications Acetazolamide (Acetazolamide Sodium 500 Mg Vial) 375 mg IVPUSH BID [facility] Stop: 06/19/23 21:01 Last Admin: 06/17/23 13:21 Dose: 375 mg Documented By: DARIO Albuterol Sulfate (Albuterol Sulfate (0.042%) 1.25 Mg/3 Ml Vial.Neb) 1.25 mg INHALE RQ4H PRN PRN Reason: Wheezing Albuterol/Ipratropium (Albuterol/Iprat 2.5/0.5mg 3 Ml Ampul.Neb) 3 ml INHALE RQ4H WHILE AWAKE [facility] Last Admin: 06/17/23 11:20 Dose: 3 ml Documented By: KATIE Fluticasone/Umeclidinium/Vilanterol (Fluticasone/Umeclidinium/Vilanterol 200/62.5/25 Blst.W.Dev) 1 puff INHALE RDAILY [facility] Last Admin: 06/17/23 11:20 Dose: 1 puff Documented By: KATIE Heparin Sodium (Porcine) (Heparin Sodium,Porcine 5,000 Unit/Ml Vial) 5,000 unit SUBCUT Q8H [facility] Last Admin: 06/17/23 09:09 Dose: 5,000 unit Documented By: DARIO Hydroxyzine HCl (Hydroxyzine Hcl 25 Mg Tablet) 25 mg PO BID PRN PRN Reason: Anxiety Last Admin: 06/17/23 05:43 Dose: 25 mg Documented By: EDUARDO Ceftriaxone Sodium 1 gm/ (Sodium Chloride) 50 mls @ 100 mls/hr IV Q24H [facility] Last Infusion: 06/17/23 00:12 Dose: Infused Documented By: EDUARDO Azithromycin 500 mg/ Sodium (Chloride) 250 mls @ 125 mls/hr IV Q24H [facility] Last Infusion: 06/17/23 11:47 Dose: Infused Documented By: DARIO Losartan Potassium (Losartan Potassium 50 Mg Tablet) 50 mg PO DAILY [facility]; Protocol Last Admin: 06/17/23 09:10 Dose: 50 mg Documented By: DARIO Methylprednisolone Sodium Succinate (Methylprednisolone Sod Succ 40 Mg/Ml Vial) 40 mg IVPUSH Q12H [facility] Last Admin: 06/17/23 09:09 Dose: 40 mg Documented By: DARIO Montelukast Sodium (Montelukast Sodium 10 Mg Tablet) 10 mg PO BEDTIME [facility] Last Admin: 06/17/23 09:10 Dose: 10 mg Documented By: DARIO Omeprazole (Omeprazole 20 Mg Capsule.Dr) 20 mg PO BID@0630,1630 [facility] Last Admin: 06/17/23 09:22 Dose: 20 mg Documented By: DARIO Sertraline HCl (Sertraline Hcl 50 Mg Tablet) 150 mg PO DAILY [facility] Last Admin: 06/17/23 09:10 Dose: 150 mg Documented By: DARIO Theophylline (Theophylline Anhydrous Er 400 Mg Tab.Er.24h) 400 mg PO DAILY [facility] Last Admin: 06/17/23 13:22 Dose: 400 mg Documented By: DARIO Labs 06/16/23 05:16 06/16/23 05:16 Microbiology Microbiology Results: Microbiology 06/15/23 18:47 Blood Culture - Preliminary Blood - Venous No growth after 24 hours. 06/15/23 18:47 Blood Culture - Preliminary Blood - Venous No growth after 24 hours. Assessment and Plan (1) Chronic hypoxic respiratory failure: Status: Acute (2) COPD with exacerbation: Status: Acute Plan d-2 63-year-old female with pertinent history of breast cancer, essential hypertension, mood disorder, chronic hypoxemic respiratory failure due to COPD on baseline 2 L supplemental oxygen presents to the emergency department for evaluation of dyspnea. acute on chronic hypoxemic respiratory failure due to pneumonia leading to acute exacerbation of COPD went to ICu for brief bipap: sob with minimal elevation, aggressive cough blood culture neg@24hrs Plan: supplemental oxygen,empiric IV antibiotics,nebs,IV steroids,cough syrup,,loratidine.pulm eval. ?UTI: ua positive - on ceftriaxone urine cultures add ,blood cultures pending Essential hypertension: Continue home antihypertensive Obesity: Counseled regarding diet and exercise Breast cancer: On anastrozole Mood disorder: Continue home mood stabilizers. still has anxiety on/off -added psych eval. morbid obesity -encouraged to lose weight, cutdown calories DVT prophylaxis: Lovenox . Full code ongoing hospital stay for acute on chronic hypoxemic respiratory failure, sepsis, pneumonia- supplemental oxygen, IV antibiotics, nebs, IV steroids (as above),pulm eval, which is not possible in a lesser acute setting. Quality Stroke Does the patient have a stroke diagnosis?: No VTE Prior VTE?: No VTE Risk Level:: Medical - moderate - high VTE Device Contraindication: N/A - Device Ordered VTE Drug Contraindication: N/A - Med Ordered
[2023-06-17] MEDS: cefTRIAXone sodium 1 GM in 0.9 % Sodium Chloride 50 ML IV (19:43)
[2023-06-18] VITALS (13 sets, daily range): BP systolic 155–165; BP diastolic 74–85; PULSE 70–119; RESP 16–20; TEMP 36.2–37.1; O2SAT 92–95; BMI 38.1
[2023-06-18] MEDS: Heparin Sodium,Porcine 5,000 UNIT/ML VIAL 5000 UNIT SUBCUT ×4 (00:42→23:23)
[2023-06-18] MEDS: Omeprazole 20 MG CAPSULE.DR PO ×2 (06:15→17:08)
[2023-06-18] MEDS: Albuterol/Iprat 2.5/0.5MG 3 ML AMPUL.NEB INHALE ×4 (07:47→19:31)
[2023-06-18] MEDS: Fluticasone/Umeclidinium/Vilanterol 200/62.5/25 BLST.W.DEV 1 PUFF INHALE (07:47)
[2023-06-18] MEDS: Sertraline HCL 50 MG TABLET 150 MG PO (09:02)
[2023-06-18] MEDS: Theophylline Anhydrous ER 400 MG TAB.ER.24H PO (09:02)
[2023-06-18] MEDS: methylPREDNISolone Sod Succ 40 MG/ML VIAL IVPUSH ×2 (09:03→23:10)
[2023-06-18] MEDS: Losartan Potassium 50 MG TABLET PO (09:03)
[2023-06-18] MEDS: acetaZOLAMIDE sodium 500 MG VIAL 375 MG IVPUSH ×2 (09:03→23:10)
[2023-06-18] MEDS: Azithromycin 500 MG in 0.9 % Sodium Chloride 250 ML 125 MG IV (09:03)
--- NOTE | 2023-06-18 14:18 | HO.PM.IMPN ---
Subjective Subjective Date of Service: 06/18/23 Interval History: f/u on acute hypoxic resp failure, PNA interval history: overall is making progress and is feeling better, still sob, and oxygen Physical Exam Vital Signs: Vital Signs: Last Vital Signs Temp 98.7 F 06/18/23 11:25 Pulse 97 06/18/23 11:25 Resp 16 06/18/23 11:25 BP 156/76 H 06/18/23 11:25 Pulse Ox 93 06/18/23 11:25 O2 Del Method Nasal Cannula 06/18/23 11:25 O2 Flow Rate 3 06/18/23 03:10 FiO2 35 06/18/23 00:00 Oxygen Flow Rate 5 06/15/23 18:28 BMI result Body Mass Index 38.1 General: AO X 3, no acute distress Resp: wheezing, and diminished sounds CVS: S1,S2,RRR GI: +BS, NT, no distention Skin: No rash Neuro: motor grossly intact Psych: appropriate affect Objective Data Active Medications Acetazolamide (Acetazolamide Sodium 500 Mg Vial) 375 mg IVPUSH BID [facility] Stop: 06/19/23 21:01 Last Admin: 06/18/23 09:03 Dose: 375 mg Documented By: KIZZY Albuterol Sulfate (Albuterol Sulfate (0.042%) 1.25 Mg/3 Ml Vial.Neb) 1.25 mg INHALE RQ4H PRN PRN Reason: Wheezing Albuterol/Ipratropium (Albuterol/Iprat 2.5/0.5mg 3 Ml Ampul.Neb) 3 ml INHALE RQ4H WHILE AWAKE [facility] Last Admin: 06/18/23 11:10 Dose: 3 ml Documented By: ABBY Fluticasone/Umeclidinium/Vilanterol (Fluticasone/Umeclidinium/Vilanterol 200/62.5/25 Blst.W.Dev) 1 puff INHALE RDAILY [facility] Last Admin: 06/18/23 07:47 Dose: 1 puff Documented By: ABBY Heparin Sodium (Porcine) (Heparin Sodium,Porcine 5,000 Unit/Ml Vial) 5,000 unit SUBCUT Q8H [facility] Last Admin: 06/18/23 09:02 Dose: 5,000 unit Documented By: KIZZY Hydroxyzine HCl (Hydroxyzine Hcl 25 Mg Tablet) 25 mg PO BID PRN PRN Reason: Anxiety Last Admin: 06/17/23 20:23 Dose: 25 mg Documented By: ZUNILDA Ceftriaxone Sodium 1 gm/ (Sodium Chloride) 50 mls @ 100 mls/hr IV Q24H [facility] Last Infusion: 06/17/23 20:13 Dose: Infused Documented By: ZUNILDA Azithromycin 500 mg/ Sodium (Chloride) 250 mls @ 125 mls/hr IV Q24H [facility] Last Infusion: 06/18/23 11:21 Dose: Infused Documented By: KIZZY Losartan Potassium (Losartan Potassium 50 Mg Tablet) 50 mg PO DAILY [facility]; Protocol Last Admin: 06/18/23 09:03 Dose: 50 mg Documented By: KIZZY Methylprednisolone Sodium Succinate (Methylprednisolone Sod Succ 40 Mg/Ml Vial) 40 mg IVPUSH Q12H [facility] Last Admin: 06/18/23 09:03 Dose: 40 mg Documented By: KIZZY Montelukast Sodium (Montelukast Sodium 10 Mg Tablet) 10 mg PO BEDTIME [facility] Last Admin: 06/17/23 19:43 Dose: 10 mg Documented By: ZUNILDA Omeprazole (Omeprazole 20 Mg Capsule.Dr) 20 mg PO BID@0630,1630 [facility] Last Admin: 06/18/23 06:15 Dose: 20 mg Documented By: ZUNILDA Sertraline HCl (Sertraline Hcl 50 Mg Tablet) 150 mg PO DAILY [facility] Last Admin: 06/18/23 09:02 Dose: 150 mg Documented By: KIZZY Theophylline (Theophylline Anhydrous Er 400 Mg Tab.Er.24h) 400 mg PO DAILY [facility] Last Admin: 06/18/23 09:02 Dose: 400 mg Documented By: KIZZY Labs 06/16/23 05:16 06/16/23 05:16 Microbiology Microbiology Results: Microbiology 06/17/23 18:39 Urine Culture - Preliminary Urine clean catch Culture too young to evaluate. 06/15/23 18:47 Blood Culture - Preliminary Blood - Venous No growth after 48 hours. 06/15/23 18:47 Blood Culture - Preliminary Blood - Venous No growth after 48 hours. Assessment and Plan (1) Chronic hypoxic respiratory failure: Status: Acute (2) COPD with exacerbation: Status: Acute Plan 63-year-old female with pertinent history of breast cancer, essential hypertension, mood disorder, chronic hypoxemic respiratory failure due to COPD on baseline 2 L supplemental oxygen presents to the emergency department for evaluation of dyspnea. acute on chronic hypoxemic respiratory failure due to pneumonia leading to acute exacerbation of COPD and required BiPAP in the ICU and overall making improvement. -Continue Ceftriaxone and Azithro COPD exacerbation--improving -continue inhalers, IV steroid to be change to PO by tomorrow UTI--continue Ceftriaxone, cultures negative Essential hypertension: Losartan Obesity: Counseled regarding diet and exercise Breast cancer: On anastrozole Mood disorder: Continue home mood stabilizers. still has anxiety on/off -added psych eval. DVT prophylaxis: Lovenox . Full code need for inpatient: treatment for acute hypoxic resp failure on iv steroid and iv Abx Quality Stroke Does the patient have a stroke diagnosis?: No VTE Prior VTE?: No VTE Risk Level:: Medical - moderate - high VTE Device Contraindication: N/A - Device Ordered VTE Drug Contraindication: N/A - Med Ordered
--- NOTE | 2023-06-18 16:12 | P.CNPS_ITS ---
History of Present Illness Date of Service: 06/18/2023 Chief Complaint: Dyspnea Requesting physician: Michell Marcelino Discussed with referring provider: Yes Sources of Information: patient interviewed, chart reviewed and crisis/core team assessment reviewed HPI Narrative: Mrs. Peace is a 63 year-old woman with hx of MDD, COPD who was admitted for exacerbation of COPD. Pt also reports she has long hx of trauma and tendency to be hypervigilant and having panic attacks. Pt reports she has had periods of panic attack, sometimes at night. She reports sometimes having nightmares related to past traumatic experiences. She reports she lives by herself. She denies SI/HI. She reports being more anxious about not being able to stay at her apartment and whether she would need to go to facility, which she does not like the idea. She reports she has been in therapy with same therapist for years but it has been his PCP prescribing sertraline. She denies hx of suicide attempts. No hx of inpatient psych admissions. [facility] Medical History COPD (chronic obstructive pulmonary disease) Hypertension Breast CA Surgical History H/O lumpectomy Diagnostics Vital Signs (24Hr): Vital Signs - 24 hr 06/17/23 18:51 06/17/23 19:23 06/17/23 20:56 Temperature 97.6 F Pulse Rate 91 89 Respiratory Rate 16 20 18 Blood Pressure 154/80 H Pulse Oximetry 91 L Oxygen Delivery Method Nasal Cannula Oxygen Flow Rate 3 Fraction of Inspired Oxygen 06/17/23 23:12 06/17/23 23:30 06/18/23 00:00 Temperature 97.1 F Pulse Rate 82 Respiratory Rate 20 19 Blood Pressure 145/63 H Pulse Oximetry 95 Oxygen Delivery Method BiPAP Oxygen Flow Rate Fraction of Inspired Oxygen 35 06/18/23 00:51 06/18/23 03:10 06/18/23 07:11 Temperature 97.3 F 97.8 F Pulse Rate 70 77 Respiratory Rate 18 20 16 Blood Pressure 155/80 H 165/74 H Pulse Oximetry 95 95 93 Oxygen Delivery Method Nasal Cannula Nasal Cannula Nasal Cannula Oxygen Flow Rate 3 3 Fraction of Inspired Oxygen 06/18/23 07:48 06/18/23 09:03 06/18/23 11:11 Temperature Pulse Rate 84 119 H Respiratory Rate 16 16 Blood Pressure 165/74 H Pulse Oximetry Oxygen Delivery Method Oxygen Flow Rate Fraction of Inspired Oxygen 06/18/23 11:25 06/18/23 15:01 Temperature 98.7 F Pulse Rate 97 97 Respiratory Rate 16 16 Blood Pressure 156/76 H Pulse Oximetry 93 Oxygen Delivery Method Nasal Cannula Oxygen Flow Rate Fraction of Inspired Oxygen BMI result Body Mass Index 38.1 Labs 06/18/23 21:23 06/19/23 06:38 Imaging Radiology Impressions: ITS Impressions Chest X-Ray 06/15/23 20:33 IMPRESSION: Bibasilar interstitial prominence, increased from prior, could represent interstitial pulmonary edema. Mental Status Exam Mental Status Exam Narrative: Appearance: wearing hospital gown, good hygiene, in NAD Behavior: cooperative and friendly Psychomotor: no agitation or retardation noted Speech: clear, normal rate/rhythm/volume, spontaneous TP: linear TC: feeling better but anxious about eventually needed to go to [facility] and not being close to family Mood: better Affect: congruent SI: denies HI: denies VH/AH: none Delusions: none Insight/judgment: fair x 2. Memory/cog: alert, oriented x 3. not formally tested. Medications Medications Current Medications Acetazolamide (Acetazolamide Sodium 500 Mg Vial) 375 mg IVPUSH BID [facility] Stop: 06/19/23 21:01 Last Admin: 06/18/23 09:03 Dose: 375 mg Albuterol Sulfate (Albuterol Sulfate (0.042%) 1.25 Mg/3 Ml Vial.Neb) 1.25 mg INHALE RQ4H PRN PRN Reason: Wheezing Albuterol/Ipratropium (Albuterol/Iprat 2.5/0.5mg 3 Ml Ampul.Neb) 3 ml INHALE RQ4H WHILE AWAKE [facility] Last Admin: 06/18/23 15:01 Dose: 3 ml Fluticasone/Umeclidinium/Vilanterol (Fluticasone/Umeclidinium/Vilanterol 200/62.5/25 Blst.W.Dev) 1 puff INHALE RDAILY [facility] Last Admin: 06/18/23 07:47 Dose: 1 puff Heparin Sodium (Porcine) (Heparin Sodium,Porcine 5,000 Unit/Ml Vial) 5,000 unit SUBCUT Q8H [facility] Last Admin: 06/18/23 09:02 Dose: 5,000 unit Hydroxyzine HCl (Hydroxyzine Hcl 25 Mg Tablet) 25 mg PO BID PRN PRN Reason: Anxiety Last Admin: 06/17/23 20:23 Dose: 25 mg Ceftriaxone Sodium 1 gm/ (Sodium Chloride) 50 mls @ 100 mls/hr IV Q24H [facility] Last Infusion: 06/17/23 20:13 Dose: Infused Azithromycin 500 mg/ Sodium (Chloride) 250 mls @ 125 mls/hr IV Q24H [facility] Last Infusion: 06/18/23 11:21 Dose: Infused Losartan Potassium (Losartan Potassium 50 Mg Tablet) 50 mg PO DAILY [facility]; Protocol Last Admin: 06/18/23 09:03 Dose: 50 mg Methylprednisolone Sodium Succinate (Methylprednisolone Sod Succ 40 Mg/Ml Vial) 40 mg IVPUSH Q12H [facility] Last Admin: 06/18/23 09:03 Dose: 40 mg Montelukast Sodium (Montelukast Sodium 10 Mg Tablet) 10 mg PO BEDTIME [facility] Last Admin: 06/17/23 19:43 Dose: 10 mg Omeprazole (Omeprazole 20 Mg Capsule.Dr) 20 mg PO BID@0630,1630 [facility] Last Admin: 06/18/23 06:15 Dose: 20 mg Sertraline HCl (Sertraline Hcl 50 Mg Tablet) 150 mg PO DAILY [facility] Last Admin: 06/18/23 09:02 Dose: 150 mg Theophylline (Theophylline Anhydrous Er 400 Mg Tab.Er.24h) 400 mg PO DAILY [facility] Last Admin: 06/18/23 09:02 Dose: 400 mg Allergies Allergies Allergy/AdvReac Type Severity Reaction Status Date / Time Sulfa (Sulfonamide Allergy Mild RASH Verified 06/15/23 18:26 Antibiotics) codeine [Codeine] AdvReac Mild NEAR Verified 06/15/23 18:26 SYNCOPE epoprostenol [From Flolan] AdvReac Mild NAUSEA & Verified 06/15/23 18:26 VOMITING Assessment & Plan Assessment & Plan (1) MDD (major depressive disorder), recurrent episode, moderate: Status: Acute Code(s): F33.1 - Major depressive disorder, recurrent, moderate (2) PTSD (post-traumatic stress disorder): Status: Acute Code(s): F43.10 - Post-traumatic stress disorder, unspecified Plan Mr. Peace is a 63 year-old woman with hx of MDD, PTSD who had exacerbation of COPD. Psych consult related to panic attack exacerbating COPD symptoms. Pt reports hx of trauma, hypervigilant at times, panic attack which pt reports are not as often but when they do tend to happen mostly at night. We discussed risks, benefits and alternative treatment options, she could try prazosin 1mg po qhs- can help with nightmares, hypervigilant episodes. I do recommend that she is followed outpatient by psych provider to make further adjustments if needed. Total time managing care of this patient today ____ minutes.
--- NOTE | 2023-06-18 17:56 | ECG_ITS ---
Test Reason : tachycardia Blood Pressure : / mmHG Vent. Rate : 111 BPM Atrial Rate : 111 BPM P-R Int : 170 ms QRS Dur : 064 ms QT Int : 308 ms P-R-T Axes : 080 -52 032 degrees QTc Int : 418 ms Sinus tachycardia with occasional Premature ventricular complexes Biatrial enlargement Left axis deviation Pulmonary disease pattern Nonspecific ST abnormality Abnormal ECG When compared with ECG of 16-JUN-2023 05:17, Premature ventricular complexes are now Present Vent. rate has increased BY 44 BPM Referred By: Hi Blanchard Electronically Signed By:Abraham Mathew
[2023-06-18 21:32] LABS: Hematocrit 47.1 % (37.0-47.0); Hemoglobin 15.3 g/dl (12.0-16.0); Mean Corpuscular HGB Conc 32.5 g/dl (31.0-35.0); Mean Corpuscular Volume 92.4 fL (80.0-98.0); Mean Platelet Volume 9.6 fL (9.4-12.3); Platelet Count 259 X10*3/uL (160-400); Red Cell Distribution Width 11.9 % (11.0-16.0); White Blood Count 7.9 X10*3/uL (4.8-10.8)
[2023-06-18] MEDS: Montelukast Sodium 10 MG TABLET PO (21:39)
[2023-06-18] MEDS: Albuterol Sulfate (0.042%) 1.25 MG/3 ML VIAL.NEB INHALE (23:02)
[2023-06-18] MEDS: cefTRIAXone sodium 1 GM in 0.9 % Sodium Chloride 50 ML IV (23:10)
[2023-06-19] VITALS (11 sets, daily range): BP systolic 138–175; BP diastolic 70–98; PULSE 76–102; RESP 16–20; TEMP 36.1–36.3; O2SAT 90–96; BMI 38.9
[2023-06-19] MEDS: Omeprazole 20 MG CAPSULE.DR PO ×2 (06:33→17:30)
[2023-06-19] MEDS: Fluticasone/Umeclidinium/Vilanterol 200/62.5/25 BLST.W.DEV 1 PUFF INHALE (07:19)
[2023-06-19] MEDS: Albuterol/Iprat 2.5/0.5MG 3 ML AMPUL.NEB INHALE ×4 (07:22→19:31)
[2023-06-19 07:32] LABS: Anion Gap 12 (12-20); Blood Urea Nitrogen 21 mg/dL (9-16); Calcium 9.3 mg/dL (8.4-10.2); Carbon Dioxide 33 mmol/L (22-29); Chloride 103 mmol/L (96-108); Creatinine Clr Calc Pharmacy 97.5; Estimated Glomerular Filt Rate > 60; Glucose Random 138 mg/dL (60-115); Potassium 4.1 mmol/L (3.3-5.1); Sodium 144 mmol/L (135-145)
[2023-06-19] MEDS: Azithromycin 500 MG in 0.9 % Sodium Chloride 250 ML 125 MG IV (09:54)
[2023-06-19] MEDS: Theophylline Anhydrous ER 400 MG TAB.ER.24H PO (09:55)
[2023-06-19] MEDS: methylPREDNISolone Sod Succ 40 MG/ML VIAL IVPUSH ×2 (09:56→20:52)
[2023-06-19] MEDS: Sertraline HCL 50 MG TABLET 150 MG PO (09:56)
[2023-06-19] MEDS: Losartan Potassium 50 MG TABLET PO (09:56)
[2023-06-19] MEDS: acetaZOLAMIDE sodium 500 MG VIAL 375 MG IVPUSH ×2 (09:57→20:52)
[2023-06-19] MEDS: Heparin Sodium,Porcine 5,000 UNIT/ML VIAL 5000 UNIT SUBCUT ×2 (09:57→17:30)
--- NOTE | 2023-06-19 10:24 | HO.PM.IMPN ---
Subjective Subjective Date of Service: 06/20/23 Interval History: f/u on acute hypoxic resp failure, PNA interval history: She is reporting feeling better but she's still desating sifignficantly with minimal effort Physical Exam Vital Signs: Vital Signs: Last Vital Signs Temp 96.9 F 06/19/23 08:00 Pulse 88 06/19/23 08:00 Resp 20 06/19/23 08:00 BP 149/83 H 06/19/23 09:56 Pulse Ox 93 06/19/23 08:00 O2 Del Method Nasal Cannula 06/19/23 08:00 O2 Flow Rate 4 06/19/23 08:00 FiO2 35 06/19/23 00:00 Oxygen Flow Rate 5 06/15/23 18:28 BMI result Body Mass Index 38.9 Objective Data Active Medications Acetazolamide (Acetazolamide Sodium 500 Mg Vial) 375 mg IVPUSH BID REPLACED BY [facility] Stop: 06/19/23 21:01 Last Admin: 06/19/23 09:57 Dose: 375 mg Documented By: YOLY Albuterol Sulfate (Albuterol Sulfate (0.042%) 1.25 Mg/3 Ml Vial.Neb) 1.25 mg INHALE RQ4H PRN PRN Reason: Wheezing Last Admin: 06/18/23 23:02 Dose: 1.25 mg Documented By: MAYANK Albuterol/Ipratropium (Albuterol/Iprat 2.5/0.5mg 3 Ml Ampul.Neb) 3 ml INHALE RQ4H WHILE AWAKE REPLACED BY [facility] Last Admin: 06/19/23 07:22 Dose: 3 ml Documented By: JUNIOR Fluticasone/Umeclidinium/Vilanterol (Fluticasone/Umeclidinium/Vilanterol 200/62.5/25 Blst.W.Dev) 1 puff INHALE RDAILY REPLACED BY [facility] Last Admin: 06/19/23 07:19 Dose: 1 puff Documented By: JUNIOR Heparin Sodium (Porcine) (Heparin Sodium,Porcine 5,000 Unit/Ml Vial) 5,000 unit SUBCUT Q8H REPLACED BY [facility] Last Admin: 06/19/23 09:57 Dose: 5,000 unit Documented By: YOLY Hydroxyzine HCl (Hydroxyzine Hcl 25 Mg Tablet) 25 mg PO BID PRN PRN Reason: Anxiety Last Admin: 06/17/23 20:23 Dose: 25 mg Documented By: ZUNILDA Ceftriaxone Sodium 1 gm/ (Sodium Chloride) 50 mls @ 100 mls/hr IV Q24H REPLACED BY [facility] Last Infusion: 06/19/23 00:15 Dose: Infused Documented By: MACY Azithromycin 500 mg/ Sodium (Chloride) 250 mls @ 125 mls/hr IV Q24H REPLACED BY [facility] Last Admin: 06/19/23 09:54 Dose: 125 mls/hr Documented By: YOLY Losartan Potassium (Losartan Potassium 50 Mg Tablet) 50 mg PO DAILY REPLACED BY [facility]; Protocol Last Admin: 06/19/23 09:56 Dose: 50 mg Documented By: YOLY Methylprednisolone Sodium Succinate (Methylprednisolone Sod Succ 40 Mg/Ml Vial) 40 mg IVPUSH Q12H REPLACED BY [facility] Last Admin: 06/19/23 09:56 Dose: 40 mg Documented By: YOLY Montelukast Sodium (Montelukast Sodium 10 Mg Tablet) 10 mg PO BEDTIME REPLACED BY [facility] Last Admin: 06/18/23 21:39 Dose: 10 mg Documented By: OSMAN Omeprazole (Omeprazole 20 Mg Capsule.Dr) 20 mg PO BID@0630,1630 REPLACED BY [facility] Last Admin: 06/19/23 06:33 Dose: 20 mg Documented By: MACY Sertraline HCl (Sertraline Hcl 50 Mg Tablet) 150 mg PO DAILY REPLACED BY [facility] Last Admin: 06/19/23 09:56 Dose: 150 mg Documented By: YOLY Theophylline (Theophylline Anhydrous Er 400 Mg Tab.Er.24h) 400 mg PO DAILY REPLACED BY [facility] Last Admin: 06/19/23 09:55 Dose: 400 mg Documented By: YOLY Labs 06/18/23 21:23 06/19/23 06:38 Labs: Laboratory Results - last 24 hr 06/18/23 06/19/23 21:23 06:38 MCV 92.4 MCH 30.0 MCHC 32.5 RDW 11.9 Plt Count 259 D MPV 9.6 Absolute Nucleated RBC 0.000 Nucleated RBC % (auto) 0.0 Hold Purple Top SEE NOTE Anion Gap 12 Estim Creat Clear Calc 97.5 Estimated GFR > 60 Random Glucose 138 H Calcium 9.3 Microbiology Microbiology Results: Microbiology 06/17/23 18:39 Urine Culture - Preliminary Urine clean catch Staphylococcus species Assessment and Plan (1) Chronic hypoxic respiratory failure: Status: Acute (2) COPD with exacerbation: Status: Acute Plan 63-year-old female with pertinent history of breast cancer, essential hypertension, mood disorder, chronic hypoxemic respiratory failure due to COPD on baseline 2 L supplemental oxygen presents to the emergency department for evaluation of dyspnea. acute on chronic hypoxemic respiratory failure due to pneumonia leading to acute exacerbation of COPD and required BiPAP in the ICU, improving slowly -Continue Ceftriaxone and Azithro for pnuemonia COPD exacerbation--improving -continue inhalers, IV steroid to be change to PO by today UTI--continue Ceftriaxone, cultures negative Essential hypertension: Losartan Obesity: Counseled regarding diet and exercise Breast cancer: On anastrozole Mood disorder: Continue home mood stabilizers. still has anxiety on/off -added psych eval. DVT prophylaxis: Lovenox . Full code need for inpatient: treatment for acute hypoxic resp failure on iv steroid and iv Abx PT eval for possible rehab, pulm Quality Stroke Does the patient have a stroke diagnosis?: No VTE Prior VTE?: No VTE Risk Level:: Medical - moderate - high VTE Device Contraindication: N/A - Device Ordered VTE Drug Contraindication: N/A - Med Ordered
--- NOTE | 2023-06-19 11:01 | MHC.CM.PN ---
Per ROUNDS discussion, Patient is not yet medically cleared for dc (still SOB & desatting); home/resume services is the goal and CM will follow.
[2023-06-19] MEDS: cefTRIAXone sodium 1 GM in 0.9 % Sodium Chloride 50 ML IV (20:52)
[2023-06-19] MEDS: Montelukast Sodium 10 MG TABLET PO (20:53)
[2023-06-19] MEDS: guaiFENesin LA 600 MG TAB.ER.12H PO (21:50)
[2023-06-20] VITALS (10 sets, daily range): BP systolic 140–154; BP diastolic 72–88; PULSE 82–110; RESP 17–20; TEMP 36–36.8; O2SAT 90–100; BMI 37.3
[2023-06-20] MEDS: Omeprazole 20 MG CAPSULE.DR PO ×2 (05:47→16:49)
[2023-06-20] MEDS: methylPREDNISolone Sod Succ 40 MG/ML VIAL IVPUSH (05:47)
[2023-06-20] MEDS: Albuterol/Iprat 2.5/0.5MG 3 ML AMPUL.NEB INHALE ×4 (07:21→20:23)
[2023-06-20] MEDS: Fluticasone/Umeclidinium/Vilanterol 200/62.5/25 BLST.W.DEV 1 PUFF INHALE (07:21)
[2023-06-20] MEDS: Azithromycin 500 MG in 0.9 % Sodium Chloride 250 ML 125 MG IV (07:44)
[2023-06-20] MEDS: Heparin Sodium,Porcine 5,000 UNIT/ML VIAL 5000 UNIT SUBCUT ×2 (07:46→16:49)
[2023-06-20] MEDS: Sertraline HCL 50 MG TABLET 150 MG PO (07:49)
[2023-06-20] MEDS: Theophylline Anhydrous ER 400 MG TAB.ER.24H PO (07:50)
[2023-06-20] MEDS: Losartan Potassium 50 MG TABLET PO (07:54)
--- NOTE | 2023-06-20 09:47 | PC.RT ---
Sleep study read by DR. Yoo pt does not have KAREN.
--- NOTE | 2023-06-20 11:38 | P.PNPL_ITS ---
Subjective Subjective Date of Service: 06/20/23 Interval history: Respiratory status has essentially improved to baseline. Objective Data Labs 06/18/23 21:23 06/19/23 06:38 Microbiology Microbiology Results: Microbiology 06/17/23 18:39 Urine clean catch Urine Culture - Final Staphylococcus warneri 06/15/23 18:47 Blood - Venous Blood Culture - Preliminary No growth after 48 hours. 06/15/23 18:47 Blood - Venous Blood Culture - Preliminary No growth after 48 hours. Physical Exam 2 Vital Signs: Vital Signs: Last Vital Signs Temp 97.6 F 06/20/23 11:26 Pulse 98 06/20/23 11:26 Resp 18 06/20/23 11:26 BP 154/82 H 06/20/23 11:26 Pulse Ox 92 06/20/23 11:26 O2 Del Method Nasal Cannula 06/20/23 11:26 O2 Flow Rate 4 06/20/23 11:26 FiO2 35 06/19/23 00:00 Oxygen Flow Rate 5 06/15/23 18:28 BMI result Body Mass Index 37.3 Const: General: no acute distress, alert and awake Eyes: Sclerae: sclerae normal EOM: EOMs intact bilaterally Neck: Neck: Yes no lymphadenopathy, Yes trachea midline and Yes supple Resp: Effort & Inspection: normal respiratory effort and no respiratory distress Auscultation: clear to auscultation bilaterally Cardio: Rate: regular rate Rhythm: regular rhythm Heart sounds: no gallops, no murmurs and no rubs GI: Palpation (GI): Soft to palpation and Other GI palpation findings present ( Nontender) Auscultation: normal bowel sounds Extrem: General: Yes no pedal edema, No clubbing and No cyanosis Procedures Date of Service Date of Service: 06/20/23 Assessment and Plan Assessment and plan (1) COPD (chronic obstructive pulmonary disease): Status: Acute (2) Respiratory failure with hypoxia: Status: Acute Plan Impression: 63-year-old lady with underlying supplemental oxygen dependent COPD admitted with COPD exacerbation. 2D echo did not demonstrate underlying pulmonary hypertension. Respiratory status has improved. Recommendations: Agree with systemic glucocorticoids taper. Will set up outpatient follow-up. Time Spent With Patient Time: Total time managing care of this patient today ____ minutes. Progress Note: Quality Stroke Does the patient have a stroke diagnosis?: No
--- NOTE | 2023-06-20 12:56 | MHC.CM.PN ---
PT is recommending STR; CM will follow.
--- NOTE | 2023-06-20 14:07 | PC.NURSE ---
SOB with minimal exertion : getting OOB to commode or back to bed from the recliner , oxygen saturation 67% , labor breathing. Oxygen increased to 5 liter from 2 liters . Takes 2-5 minutes for patient to go to comfortable breathing . Oxygen supply decreased to 3 liter by RT after pt recovered . Oxygen saturation 95% on 3liters at rest via cedeño cannula . DR Blanchard was notified
--- NOTE | 2023-06-20 16:06 | P.PNIM_ITS ---
Subjective Subjective Date of Service: 06/20/23 Interval History: f/u on acute hypoxic resp failure, PNA interval history: She is feeling better, slept well, still noted to desat with minimal effort Physical Exam 2 Vital Signs: Vital Signs: Last Vital Signs Temp 96.8 F 06/20/23 15:13 Pulse 110 H 06/20/23 15:25 Resp 18 06/20/23 15:25 BP 145/72 H 06/20/23 15:13 Pulse Ox 100 06/20/23 15:13 O2 Del Method Nasal Cannula 06/20/23 15:13 O2 Flow Rate 4 06/20/23 15:13 FiO2 35 06/19/23 00:00 Oxygen Flow Rate 5 06/15/23 18:28 BMI result Body Mass Index 37.3 Objective Data Active Medications Albuterol Sulfate (Albuterol Sulfate (0.042%) 1.25 Mg/3 Ml Vial.Neb) 1.25 mg INHALE RQ4H PRN PRN Reason: Wheezing Last Admin: 06/18/23 23:02 Dose: 1.25 mg Documented By: MAYANK Albuterol/Ipratropium (Albuterol/Iprat 2.5/0.5mg 3 Ml Ampul.Neb) 3 ml INHALE RQ4H WHILE AWAKE [facility] Last Admin: 06/20/23 15:25 Dose: 3 ml Documented By: JUNIOR Fluticasone/Umeclidinium/Vilanterol (Fluticasone/Umeclidinium/Vilanterol 200/62.5/25 Blst.W.Dev) 1 puff INHALE RDAILY [facility] Last Admin: 06/20/23 07:21 Dose: 1 puff Documented By: MARLENE Guaifenesin (Guaifenesin La 600 Mg Tab.Er.12h) 600 mg PO BID PRN PRN Reason: Cough Last Admin: 06/19/23 21:50 Dose: 600 mg Documented By: MACY Heparin Sodium (Porcine) (Heparin Sodium,Porcine 5,000 Unit/Ml Vial) 5,000 unit SUBCUT Q8H [facility] Last Admin: 06/20/23 07:46 Dose: 5,000 unit Documented By: DIANA Hydroxyzine HCl (Hydroxyzine Hcl 25 Mg Tablet) 25 mg PO BID PRN PRN Reason: Anxiety Last Admin: 06/17/23 20:23 Dose: 25 mg Documented By: ZUNILDA Ceftriaxone Sodium 1 gm/ (Sodium Chloride) 50 mls @ 100 mls/hr IV Q24H [facility] Last Infusion: 06/19/23 21:51 Dose: Infused Documented By: MACY Azithromycin 500 mg/ Sodium (Chloride) 250 mls @ 125 mls/hr IV Q24H [facility] Last Infusion: 06/20/23 09:45 Dose: Infused Documented By: DIANA Losartan Potassium (Losartan Potassium 50 Mg Tablet) 50 mg PO DAILY [facility]; Protocol Last Admin: 06/20/23 07:54 Dose: 50 mg Documented By: DIANA Methylprednisolone Sodium Succinate (Methylprednisolone Sod Succ 40 Mg/Ml Vial) 40 mg IVPUSH Q12H [facility] Last Admin: 06/20/23 05:47 Dose: 40 mg Documented By: MACY Montelukast Sodium (Montelukast Sodium 10 Mg Tablet) 10 mg PO BEDTIME [facility] Last Admin: 06/19/23 20:53 Dose: 10 mg Documented By: MACY Omeprazole (Omeprazole 20 Mg Capsule.Dr) 20 mg PO BID@0630,1630 [facility] Last Admin: 06/20/23 05:47 Dose: 20 mg Documented By: MACY Sertraline HCl (Sertraline Hcl 50 Mg Tablet) 150 mg PO DAILY [facility] Last Admin: 06/20/23 07:49 Dose: 150 mg Documented By: DIANA Theophylline (Theophylline Anhydrous Er 400 Mg Tab.Er.24h) 400 mg PO DAILY [facility] Last Admin: 06/20/23 07:50 Dose: 400 mg Documented By: DIANA Labs 06/18/23 21:23 06/19/23 06:38 Microbiology Microbiology Results: Microbiology 06/17/23 18:39 Urine Culture - Final Urine clean catch Staphylococcus warneri Assessment and Plan (1) Chronic hypoxic respiratory failure: Status: Acute (2) COPD with exacerbation: Status: Acute Plan 63-year-old female with pertinent history of breast cancer, essential hypertension, mood disorder, chronic hypoxemic respiratory failure due to COPD on baseline 2 L supplemental oxygen presents to the emergency department for evaluation of dyspnea. acute on chronic hypoxemic respiratory failure due to pneumonia leading to acute exacerbation of COPD and required BiPAP in the ICU, improving slowly -Continue Ceftriaxone and Azithro for pnuemonia and change to oral Ceftin tomorrow COPD exacerbation--improving -continue inhalers, IV steroid to be change to PO tomorrow UTI--continue Ceftriaxone, cultures negative Essential hypertension: Losartan Obesity: Counseled regarding diet and exercise Breast cancer: On anastrozole Mood disorder: Continue home mood stabilizers. still has anxiety on/off -added psych eval. DVT prophylaxis: Lovenox . Full code need for inpatient: treatment for acute hypoxic resp failure on iv steroid and iv Abx PT eval for possible rehab, pulm dc tomorow if doing better Quality Stroke Does the patient have a stroke diagnosis?: No VTE Prior VTE?: No VTE Risk Level:: Medical - moderate - high VTE Device Contraindication: N/A - Device Ordered VTE Drug Contraindication: N/A - Med Ordered
[2023-06-20] MEDS: hydrOXYzine HCL 25 MG TABLET PO (20:13)
[2023-06-20] MEDS: Montelukast Sodium 10 MG TABLET PO (20:13)
[2023-06-20] MEDS: guaiFENesin LA 600 MG TAB.ER.12H PO (20:13)
[2023-06-20] MEDS: cefTRIAXone sodium 1 GM in 0.9 % Sodium Chloride 50 ML IV (20:13)
[2023-06-21] MEDS: Heparin Sodium,Porcine 5,000 UNIT/ML VIAL 5000 UNIT SUBCUT ×2 (02:03→08:07)
[2023-06-21 03:45] VITALS: BP 166/79; PULSE 92; RESP 19; TEMP 36.7
[2023-06-21] MEDS: Omeprazole 20 MG CAPSULE.DR PO (06:47)
[2023-06-21 06:59] VITALS: BP 161/81; PULSE 88; RESP 20; TEMP 35.6; O2SAT 94
[2023-06-21] MEDS: Fluticasone/Umeclidinium/Vilanterol 200/62.5/25 BLST.W.DEV 1 PUFF INHALE (07:52)
[2023-06-21] MEDS: Albuterol/Iprat 2.5/0.5MG 3 ML AMPUL.NEB INHALE ×2 (07:52→11:20)
[2023-06-21 07:55] VITALS: PULSE 99; RESP 18; O2SAT 94
[2023-06-21] MEDS: Azithromycin 500 MG in 0.9 % Sodium Chloride 250 ML 125 MG IV (08:06)
[2023-06-21] MEDS: Sertraline HCL 50 MG TABLET 150 MG PO (08:07)
[2023-06-21] MEDS: Theophylline Anhydrous ER 400 MG TAB.ER.24H PO (08:07)
[2023-06-21] MEDS: Losartan Potassium 50 MG TABLET PO (08:07)
[2023-06-21 11:02] VITALS: BP 159/80; PULSE 101; RESP 20; TEMP 35.9; O2SAT 93
[2023-06-21 11:20] VITALS: PULSE 101; RESP 20; O2SAT 94
--- NOTE | 2023-06-21 11:45 | P.DS_ITS ---
DS: Providers Provider Date of Service: 06/21/23 Date of admission: 06/15/23 23:14 Primary care physician: Carmen Burk NP Consults: 06/17/23 08:02 Consult to Psychiatry Routine Consulting Provider: Psych Covering Reason for consultation: copd execerbation-?panic symptoms contributin to sob Has provider been notified: No 06/17/23 08:05 Consult to Pulmonology Routine [place]ing [place] [facility] [place] Reason for consultation: frequent copd excerebations Has provider been notified: No DS: Diagnosis Discharge Diagnosis (1) Chronic hypoxic respiratory failure: Status: Acute (2) COPD with exacerbation: Status: Acute DS: Summary Hospital Course Hospital Course: Admission hpi Chief Complaint: Dyspnea Ms. Peace is a 63-year-old female with pertinent history of breast cancer, essential hypertension, mood disorder, chronic hypoxemic respiratory failure due to COPD on baseline 2 L supplemental oxygen and recent hospitalization for acute on chronic hypoxemic respiratory failure with pneumonia and Human Metapneumovirus on 06/10 - 06/14/2023. She returned to the emergency department today with worsening shortness of breath and difficulty breathing. The patient denied dizziness, lightheadedness, abdominal pain, nausea, vomiting, fever, chills, chest pain, urinary problem, or any other complaints.? On arrival to the ED, the patient's blood pressure 189/96, heart rate 89,? respiratory rate 22, O2 Sat 94% 5L NC.? She was afebrile 98.1 F. Laboratory data significant for serum bicarb 40, lactic acid 0.6,? troponin 11.1. VBG? 7.38/76/153/45. UA suggestive of UTI. Chest x-ray with bibasilar pulmonary edema. ED course:? the patient received 1 g Mag sulfate, methylprednisolone 60 mg.? Ceftriaxone 1 g, ? Morphine 4 mg, and two albuterol treatments. She was placed on BiPAP. Hospital course: A 63-year-old female patient, with a history of breast cancer, pulmonary hypertension, and COPD requiring home 2 L nasal cannula oxygen, was admitted on June 10 due to a COPD exacerbation associated with metapneumovirus. Discharged on June 13, she returned on June 14 with worsening dyspnea, necessitating rescue BiPAP and subsequent ICU admission. After showing improvement, she was transferred to the medical floor on the same day, where she has been receiving treatment for COPD exacerbation with IV steroids, nebulized bronchodilators, and IV antibiotics (Ceftriaxone and Azithromycin). A jewelry polisher recommended continuing steroid and bronchodilator therapy and considering discontinuation of antibiotics and initiation of theophyline 400 mg daily. Although her recovery has been slow, she has shown overall improvement. However, she remains quite deconditioned and easily desaturates, possibly due to her history of pulmonary hypertension, warranting consideration for chronic oxygen therapy. She will be discharged with inhalers, prednisone dayna for 1 more week and to continue theophyline. Physical therapy has suggested short-term rehabilitation, to which the patient has agreed. Time Attestation Discharge Coordination Time (in mins): 45 Quality: Safe Use of Opioids Does Pt have an Active Cancer Diagnosis on the Problem List?: No Quality: Stroke Does the patient have a stroke diagnosis?: No Physical Exam Vital Signs: Vital Signs: Last Vital Signs Temp 96.7 F L 06/21/23 11:02 Pulse 101 H 06/21/23 11:20 Resp 20 06/21/23 11:20 BP 159/80 H 06/21/23 11:02 Pulse Ox 93 06/21/23 11:02 O2 Del Method Nasal Cannula 06/21/23 11:02 O2 Flow Rate 3 06/21/23 11:02 FiO2 35 06/21/23 04:00 Oxygen Flow Rate 5 06/15/23 18:28 BMI result Body Mass Index 37.3 General: AO X 3, no acute distress Resp: CTA bilateral CVS: S1,S2,RRR GI: +BS, NT, no distention Skin: No rash Neuro: motor grossly intact Psych: appropriate affect Discharge Plan Discharge Anticipated Discharge Date/Time: 06/21/23 11:34 Patient Disposition: Xfer SNF Discharge Diagnosis: Acute on chronic hypoxic respiratory failure due to copd exacerbation Referrals: [facility] [place] [Outside] - 1 Week Carmen Burk NP [Primary Care Provider] - 1 Week Discharge Medications: New ipratropium-albuterol 0.5 mg-3 mg(2.5 mg base)/3 mL Solution For Nebulization 3 ml inhalation RQ4H WHILE AWAKE Qty: 120 0RF theophylline 400 mg Tablet Extended Release 24 Hr 400 mg PO DAILY Qty: 30 0RF albuterol sulfate 1.25 mg/3 mL Solution For Nebulization 1.25 mg inhalation RQ4H PRN (Reason: Wheezing) 90 Days Qty: 90 0RF prednisone 10 mg tablet See Taper PO DIRECTED Qty: 12 0RF Taper: Prednisone 30 mg daily for 2 Days and 0 Hour 20 mg daily for 2 Days and 0 Hour 10 mg daily for 2 Days and 0 Hour Rx Instructions: see taper instructions Continued sertraline 100 mg tablet 1.5 tab PO DAILY omeprazole 20 mg capsule,delayed release(DR/EC) 1 cap PO BID@0630,1630 montelukast 10 mg tablet 1 tab PO BEDTIME albuterol sulfate 90 mcg/actuation HFA aerosol inhaler 2 puff inhalation Q6H PRN (Reason: wheezing) hydroxyzine pamoate 25 mg capsule 1 cap PO BID PRN (Reason: Anxiety) losartan 50 mg tablet 50 mg PO DAILY calcium citrate-vitamin D3 315 mg-6.25 mcg (250 unit) tablet 1 tab PO BID Trelegy Ellipta 200-62.5-25 mcg blister with device 1 ea inhalation DAILY Discontinued azithromycin 500 mg tablet 500 mg PO MOWEFR@0900 Hold Instructions: Resume on 06/21/23. Rx Instructions: RESUME ON 06/21/23 cefuroxime axetil 500 mg tablet 500 mg PO BID Qty: 10 0RF Rx Instructions: END DATE: 06/20/23 prednisone 20 mg tablet 40 mg PO DAILY Qty: 8 0RF Rx Instructions: END DATE: 06/20/23 azithromycin 500 mg tablet 500 mg PO DAILY 5 Days Qty: 5 0RF Rx Instructions: END DATE: 06/20/23 Discharge Orders: Discharge Order (Routine); Ordered 06/21/23 Ordered By: Hi Blanchard Diet: Advance to usual diet Activity on Discharge: As tolerated Stand Alone Forms: Patient Portal Discharge page Print Language: [place] Island[place] Care Plan Goals: recovery from shortness of breath, copd exacerbation and deconditioning Health Concerns: copd exacerbation chronic respiatory failure pulmonary HTN Plan of Treatment: Take Prednisone as directed use inhalers as directed take theophyline as directed follow up with pulmonology office Assessment: see above
--- NOTE | 2023-06-21 12:46 | MHC.CM.PN ---
Per MD, Patient is medically cleared for dc to SNF/STR today. [facility] today at 3 PM, via [facility]. Patient and her Daughtrer/HCP @ listed # are aware of and in agreement with the dc plan. IMM to be addressed momentarily, with Patient.
--- NOTE | 2023-06-21 12:58 | MHC.CM.PN ---
[facility] run/auth # for transportation is [id number].
== END 2023-06-21 15:30 | disposition skilled nursing facility (03) | DRG 193 ==
LOC: HO.ED 19:33 → HO.EDOVER 23:23 → HO.ICU 23:59 → HO.IMC 06-16 14:30
PROVIDERS: Internal Medicine Critical Care Medicine; Physician Assistant Medical; Admitting Provider Nurse Practitioner Family; Emergency Provider Emergency Medicine Emergency Medical Services; PCP Nurse Practitioner Family; Visit Provider Internal Medicine
DX: J18.9 Pneumonia, unspecified organism (principal); J96.21 Acute and chronic respiratory failure with hypoxia; J44.0 Chronic obstructive pulmonary disease with (acute) lower respiratory infection; N39.0 Urinary tract infection, site not specified; E66.2 Morbid (severe) obesity with alveolar hypoventilation; F33.1 Major depressive disorder, recurrent, moderate; J44.1 Chronic obstructive pulmonary disease with (acute) exacerbation; I10 Essential (primary) hypertension; C50.919 Malignant neoplasm of unspecified site of unspecified female breast; I27.21 Secondary pulmonary arterial hypertension; R31.9 Hematuria, unspecified; F43.10 Post-traumatic stress disorder, unspecified; Z68.37 Body mass index [BMI] 37.0-37.9, adult; Z79.811 Long term (current) use of aromatase inhibitors; Z99.81 Dependence on supplemental oxygen; Z79.899 Other long term (current) drug therapy
CPT/HCPCS: 36415; 71045; 80048; 80053; 82040; 82550; 82803; 83605; 83735; 83880; 84100; 84484; 85007; 85025; 85027; 85610; 87040; 87086; 87088; 93005; 93306; 94640; 94660; 97162; 99285; C1758; J0456; J0696; J1120; J1644; J1940; J2270; J2919; J3475; Q9957

== ENCOUNTER 2023-06-15 23:14 | Outpatient (BNV) | payer OTHER, SELFPAY | END 2023-06-18 17:56 | PROVIDERS: Admitting Provider Nurse Practitioner Family; Emergency Provider Emergency Medicine Emergency Medical Services; PCP Nurse Practitioner Family; Visit Provider Internal Medicine Cardiovascular Disease | DX: R00.0 Tachycardia, unspecified (principal); I49.3 Ventricular premature depolarization; I51.7 Cardiomegaly | CPT/HCPCS: 93010 ==

== ENCOUNTER 2023-06-15 23:14 | Outpatient (BNV) | payer OTHER, SELFPAY | END 2023-06-17 07:00 | PROVIDERS: Admitting Provider Nurse Practitioner Family; Emergency Provider Emergency Medicine Emergency Medical Services; Visit Provider Internal Medicine Cardiovascular Disease | DX: R03.0 Elevated blood-pressure reading, without diagnosis of hypertension (principal); R93.1 Abnormal findings on diagnostic imaging of heart and coronary circulation | CPT/HCPCS: 93306 ==

== ENCOUNTER 2023-06-15 23:14 | Outpatient (BNV) | payer OTHER, SELFPAY | END 2023-06-16 06:00 | PROVIDERS: Admitting Provider Nurse Practitioner Family; Emergency Provider Emergency Medicine Emergency Medical Services; Visit Provider Internal Medicine | DX: R94.31 Abnormal electrocardiogram [ECG] [EKG] (principal); I10 Essential (primary) hypertension | CPT/HCPCS: 93010 ==

== ENCOUNTER → 2023-06-15 23:14 | Outpatient (BNV) | payer OTHER, SELFPAY | PROVIDERS: Admitting Provider Nurse Practitioner Family; Emergency Provider Emergency Medicine Emergency Medical Services; Visit Provider Internal Medicine | DX: J96.21 Acute and chronic respiratory failure with hypoxia (principal); J44.1 Chronic obstructive pulmonary disease with (acute) exacerbation | CPT/HCPCS: 99232; 99239; 99499 ==

== ENCOUNTER → 2023-06-15 23:14 | Outpatient (BNV) | payer OTHER, SELFPAY | PROVIDERS: Admitting Provider Nurse Practitioner Family; Emergency Provider Emergency Medicine Emergency Medical Services; Visit Provider Nurse Practitioner Family | DX: J96.21 Acute and chronic respiratory failure with hypoxia (principal); J96.22 Acute and chronic respiratory failure with hypercapnia; J44.1 Chronic obstructive pulmonary disease with (acute) exacerbation; N39.0 Urinary tract infection, site not specified; R31.9 Hematuria, unspecified | CPT/HCPCS: 99291; 99499 ==

== ENCOUNTER → 2023-06-15 23:14 | Outpatient (BNV) | payer OTHER, SELFPAY | PROVIDERS: Admitting Provider Nurse Practitioner Family; Emergency Provider Emergency Medicine Emergency Medical Services; PCP Nurse Practitioner Family; Visit Provider Social Worker | DX: F33.1 Major depressive disorder, recurrent, moderate (principal); F43.11 Post-traumatic stress disorder, acute | CPT/HCPCS: 99232 ==

== ENCOUNTER → 2023-06-15 23:14 | Outpatient (BNV) | payer OTHER, SELFPAY | PROVIDERS: Admitting Provider Nurse Practitioner Family; Emergency Provider Emergency Medicine Emergency Medical Services; Visit Provider Internal Medicine Pulmonary Disease | DX: J44.9 Chronic obstructive pulmonary disease, unspecified (principal); J96.21 Acute and chronic respiratory failure with hypoxia | CPT/HCPCS: 99222; 99232 ==

== ENCOUNTER 2023-07-07 10:08 | Inpatient (IN) | payer OTHER, SELFPAY ==
[2023-07-07] VITALS (8 sets, daily range): BP systolic 112–184; BP diastolic 67–110; PULSE 99–143; RESP 18–35; TEMP 36.6–37.4; O2SAT 92–96; BMI 38.1
--- NOTE | ~2023-07-07 | XR_ITS ---
EXAMINATION: XR chest 1V CLINICAL INFORMATION: Reason for Exam Shortness of breath COMPARISON: 06/15/2023 TECHNIQUE: Single portable frontal view. Tubes and lines: None Lungs and pleura: Mild vascular congestion, diffuse interstitial opacification especially lung bases, cannot rule out mild interstitial infiltrate versus edema. No significant pleural effusion. Heart and mediastinum: Widened mediastinum exaggerated by AP technique and oblique projection. Unchanged. Bones/soft tissue: Skeletal structures included are normal for patient's age. XR/XR chest 1V IMPRESSION: 1. Mild vascular congestion. 2. Mild diffuse interstitial opacification especially lung bases cannot rule out mild interstitial infiltrate versus edema. 3. No significant pleural effusion.
--- NOTE | 2023-07-07 10:10 | ECG_ITS ---
Test Reason : RESP DISTRESS Blood Pressure : / mmHG Vent. Rate : 139 BPM Atrial Rate : 139 BPM P-R Int : 154 ms QRS Dur : 056 ms QT Int : 266 ms P-R-T Axes : 082 -32 065 degrees QTc Int : 404 ms Sinus tachycardia Biatrial enlargement Left axis deviation Pulmonary disease pattern Nonspecific ST and T wave abnormality Abnormal ECG When compared with ECG of 18-JUN-2023 17:36, Premature ventricular complexes are no longer Present Non-specific change in ST segment in Inferior leads Referred By: Fernanda Krause Electronically Signed By:Abraham Mathew
--- NOTE | 2023-07-07 10:16 | ED_ITS ---
HPI - SOB/Dyspnea General Chief Complaint: Dyspnea Stated Complaint: RESPIRATORY DISTRESS FROM SNF PER EMS Source: patient and EMS Mode of arrival: EMS History of Present Illness ED Provider: Dr Krause HPI Narrative: 63-year-old female with known history of pulmonary hypertension/COPD is brought in by EMS for progressive shortness of breath since awakening this morning, noted to be oxygenating 90% on non-rebreather at the SNF denies any fevers and then patient required CPAP and is now noted to be 95% on arrival. Patient received DuoNebs but no steroids or Mag. Related Data Home Medications ?Medication ?Instructions ?Recorded ?Confirmed albuterol sulfate 90 mcg/actuation 2 puff inhalation Q6H PRN wheezing 02/05/20 06/16/23 aerosol inhaler montelukast 10 mg tablet 1 tab PO BEDTIME 02/05/20 06/16/23 omeprazole 20 mg capsule,delayed 1 cap PO BID@0630,1630 02/05/20 06/16/23 release sertraline 100 mg tablet 1.5 tab PO DAILY 02/05/20 06/16/23 hydroxyzine pamoate 25 mg capsule 1 cap PO BID PRN Anxiety 03/26/22 06/16/23 calcium citrate 315 mg 1 tab PO BID 06/11/23 06/16/23 calcium-vitamin D3 6.25 mcg (250 unit) tablet fluticasone fur. 200 mcg-umeclid 1 ea inhalation DAILY 06/11/23 06/16/23 62.5 mcg-vilant 25 mcg inhalat.powder (Trelegy Ellipta) losartan 50 mg tablet 50 mg PO DAILY 06/11/23 06/16/23 Previous Rx's ?Medication ?Instructions ?Recorded albuterol sulfate 1.25 mg/3 mL 1.25 mg (3 mL) inhalation RQ4H PRN 06/21/23 solution for nebulization Wheezing 90 days #90 mL ipratropium 0.5 mg-albuterol 3 mg 3 ml inhalation RQ4H WHILE AWAKE 06/21/23 (2.5 mg base)/3 mL nebulization #120 mL soln prednisone 10 mg tablet See Taper PO DIRECTED #12 tabs 06/21/23 theophylline 400 mg 400 mg PO DAILY #30 tabs 06/21/23 tablet,extended release 24 hr Allergies Allergy/AdvReac Type Severity Reaction Status Date / Time Sulfa (Sulfonamide Allergy Mild RASH Verified 07/07/23 10:41 Antibiotics) codeine [Codeine] AdvReac Mild NEAR Verified 07/07/23 10:41 SYNCOPE epoprostenol [From Flolan] AdvReac Mild NAUSEA & Verified 07/07/23 10:41 VOMITING Review of Systems 2 Review of Systems: Pertinent positives and negatives as stated in HPI [facility] Past Medical History Source: nursing notes reviewed Medical History MDD (major depressive disorder), recurrent episode, moderate PTSD (post-traumatic stress disorder) Respiratory failure Respiratory failure with hypoxia COPD (chronic obstructive pulmonary disease) Hypertension Breast CA Surgical History H/O lumpectomy Social History Social History Household Members: Family Housing: House Do you presently have visiting nurse or other home services: Yes (daughter is PRISON KEEPER) Unable to assess alcohol history related to: Unable to respond Alcohol intake: former Patient Tobacco Use Status: Former Tobacco user Advance Directives: Yes Advance Directives on File: Yes Advance Directives Date on File: 04/05/22 service: No Current occupational status: disabled Physical Exam 2 Vital Signs: Vital Signs: Last Vital Signs Temp 99.3 F 07/07/23 10:38 Pulse 123 H 07/07/23 11:53 Resp 24 H 07/07/23 11:55 BP 130/67 07/07/23 11:53 Pulse Ox 95 07/07/23 10:38 O2 Del Method CPAP 07/07/23 11:53 FiO2 30 07/07/23 11:53 BMI result Body Mass Index 38.1 VITAL SIGNS: Reviewed. GENERAL: Elevated BMI, Well developed, well nourished, in no acute distress. HEAD: Normocephalic/atraumatic EYES: PERRLA, EOMI EARS: Ext canals without abnormality NOSE: Nares patent bilateral OROPHARYNX: no oral lesions noted, posterior pharynx clear NECK: Supple, no adenopathy LUNGS: Decreased throughout, tachypneic with increased work of breathing. SpO2<95> on BiPAP CARDIOVASCULAR: Regular rate and rhythm without noted murmurs, no JVD or lower extremity edema. ABDOMEN: Soft, non-tender, non-distended with bowel sounds. MUSCULOSKELETAL: No tenderness, deformities, or effusions noted on gross inspection. EXTREMITIES: No cyanosis, clubbing or edema. SKIN: Inspection of the skin reveals no rashes NEUROLOGIC: Alert and oriented x 4. Strength and sensation to light touch were grossly intact x 4. Medications Administered Discontinued Medications Generic Name Dose Route Start Last Admin Trade Name Freq PRN Reason Stop Dose Admin Magnesium Sulfate 2 gm in 50 mls @ 150 mls/hr 07/07/23 10:09 07/07/23 11:00 Magnesium Sulfate/H2o IV 07/07/23 10:28 Infused ONCE ONE Infusion Piperacillin Sod/Tazobactam 50 mls @ 100 mls/hr 07/07/23 10:44 07/07/23 11:41 Sod 3.375 gm/ Sodium Chloride IV 07/07/23 11:13 Infused ONCE ONE Infusion Levalbuterol HCl 5 mg 07/07/23 10:19 07/07/23 10:31 Levalbuterol Hcl 1.25 Mg/3 Ml Vial.Neb INHALE 07/07/23 10:20 5 mg ONCE ONE Administration Methylprednisolone Sodium Succinate 125 mg 07/07/23 10:09 07/07/23 10:35 Methylprednisolone Sod Succ 125 Mg/2 Ml Vial IVPUSH 07/07/23 10:10 125 mg ONCE ONE Administration Medical Decision Making Medical Decision Making [facility] Narrative: 1015: 63-year-old female with history and clinical presentation, DDX: Acute decompensated COPD/pulmonary hypertension, with a fever possibility of pneumonia or viral illness. INTERVENTION: BiPAP, Solu-Medrol, magnesium sulfate, antibiotics I reviewed all investigations and hematologic indices are negative for leukocytosis/anemia there is a mild thrombocytopenia of unclear significance at this time. This value could be associated with medications. Coagulation studies within normal limits. VBG does not demonstrate respiratory acidosis but there is evidence of hypercapnia with pCO2 -67. Chemistry indices negative for IRMA/electrolyte or liver enzyme derangements and BNP is within normal limits in high sensitivity troponin is detectable but not elevated and there are no acute changes on EKG. Transitioned to nasal cannula which is being tolerated well by the patient. She is otherwise stable for admission to the floor and understands the current plan. 1511: Discussed case with inpatient hospitalist who accepts admission. Differential Diagnosis Differential Diagnoses: The differential diagnosis associated with the presentation includes Please see the discussion above Admission/Observation Consideration of admission/observation: Escalation of care including admission/observation considered Please see the discussion above Consult Healthcare Provider Management of the patient was discussed with: Hospitalist Please see the discussion above Lab Data MDM Lab Attestation statement: I reviewed the patient's lab results. Please see the discussion above 07/07/23 10:19 07/07/23 10:19 Labs: Lab Results 07/07/23 07/07/23 07/07/23 Range/Units 10:19 10:20 12:03 WBC 5.1 (4.8-10.8) X10*3/uL RBC 4.56 (4.20-5.50) X10*6/uL Hgb 13.8 (12.0-16.0) g/dl Hct 43.6 (37.0-47.0) % MCV 95.6 (80.0-98.0) fL MCH 30.3 (27.0-33.0) pg MCHC 31.7 (31.0-35.0) g/dl RDW 13.6 (11.0-16.0) % Plt Count 156 L D (160-400) X10*3/uL MPV 9.9 (9.4-12.3) fL Immature Gran % (Auto) 0.8 H (0.0-0.4) % Neut % (Auto) 79.0 H (45-73) % Lymph % (Auto) 8.9 L (20-40) % Sequoyah % (Auto) 9.7 (2-11) % Eos % (Auto) 1.0 (0-4) % Baso % (Auto) 0.6 (0-2) % Lymph # (Auto) 0.5 L (1.2-4.9) X10*3/uL Sequoyah # (Auto) 0.5 (0.1-1.2) X10*3/uL Eos # (Auto) 0.1 (0.0-0.4) X10*3/uL Baso # (Auto) 0.0 (0.0-0.2) X10*3/uL Abs Immat Gran (auto) 0.04 H (0.00-0.03) X10*3/uL Absolute Neuts (auto) 4.0 (2.0-8.3) x10*3/uL Absolute Nucleated RBC 0.000 (0.0-0.012) X10*3/uL Nucleated RBC % (auto) 0.0 (0.0-0.2) /100WBC PT 11.0 L (11.1-13.3) SEC INR 0.9 (0.9-1.1) VBG pH 7.36 7.36 (7.32-7.43) VBG pCO2 67 64 mmHg VBG pO2 110 135 mmHg VBG HCO3 38 H 37 H (22-26) mmol/L VBG O2 Saturation 99.0 99.0 % VBG Base Excess 10.1 9.1 mmol/L Sodium 140 (135-145) mmol/L Potassium 4.5 (3.3-5.1) mmol/L Chloride 99 (96-108) mmol/L Carbon Dioxide 34 H (22-29) mmol/L Anion Gap 12 (12-20) BUN 10 (9-16) mg/dL Creatinine 0.76 (0.5-1.4) mg/dL Estim Creat Clear Calc TNP Estimated GFR > 60 Random Glucose 119 H (60-115) mg/dL Lactic Acid 0.7 (0.5-2.0) mmol/L Calcium 9.4 (8.4-10.2) mg/dL Total Bilirubin 0.5 (0.0-1.0) mg/dL AST 17 (5-31) U/L ALT 21 (0-31) U/L Alkaline Phosphatase 72 (39-117) U/L Troponin I High Sens 7.8 (<3.5-17.0) ng/L B-Natriuretic Peptide 33 (<100) pg/mL Total Protein 7.0 (6.5-8.0) g/dL Albumin 3.7 (3.5-5.0) g/dL COVID-19 (HOMERO) (Negative) COVID-19 Clin Com Influenza Type A (SEAN) (Negative) Influenza Type B (SEAN) (Negative) Influenza A & B Note 07/07/23 Range/Units 13:39 WBC (4.8-10.8) X10*3/uL RBC (4.20-5.50) X10*6/uL Hgb (12.0-16.0) g/dl Hct (37.0-47.0) % MCV (80.0-98.0) fL MCH (27.0-33.0) pg MCHC (31.0-35.0) g/dl RDW (11.0-16.0) % Plt Count (160-400) X10*3/uL MPV (9.4-12.3) fL Immature Gran % (Auto) (0.0-0.4) % Neut % (Auto) (45-73) % Lymph % (Auto) (20-40) % Sequoyah % (Auto) (2-11) % Eos % (Auto) (0-4) % Baso % (Auto) (0-2) % Lymph # (Auto) (1.2-4.9) X10*3/uL Sequoyah # (Auto) (0.1-1.2) X10*3/uL Eos # (Auto) (0.0-0.4) X10*3/uL Baso # (Auto) (0.0-0.2) X10*3/uL Abs Immat Gran (auto) (0.00-0.03) X10*3/uL Absolute Neuts (auto) (2.0-8.3) x10*3/uL Absolute Nucleated RBC (0.0-0.012) X10*3/uL Nucleated RBC % (auto) (0.0-0.2) /100WBC PT (11.1-13.3) SEC INR (0.9-1.1) VBG pH (7.32-7.43) VBG pCO2 mmHg VBG pO2 mmHg VBG HCO3 (22-26) mmol/L VBG O2 Saturation % VBG Base Excess mmol/L Sodium (135-145) mmol/L Potassium (3.3-5.1) mmol/L Chloride (96-108) mmol/L Carbon Dioxide (22-29) mmol/L Anion Gap (12-20) BUN (9-16) mg/dL Creatinine (0.5-1.4) mg/dL Estim Creat Clear Calc Estimated GFR Random Glucose (60-115) mg/dL Lactic Acid (0.5-2.0) mmol/L Calcium (8.4-10.2) mg/dL Total Bilirubin (0.0-1.0) mg/dL AST (5-31) U/L ALT (0-31) U/L Alkaline Phosphatase (39-117) U/L Troponin I High Sens (<3.5-17.0) ng/L B-Natriuretic Peptide (<100) pg/mL Total Protein (6.5-8.0) g/dL Albumin (3.5-5.0) g/dL COVID-19 (HOMERO) Negative (Negative) COVID-19 Clin Com See Note Influenza Type A (SEAN) Negative (Negative) Influenza Type B (SEAN) Negative (Negative) Influenza A & B Note See Note Independent Interpretation I performed an independent interpretation of an: EKG Interpretation: Sinus tachycardia, HR-139, no STEMI, GA/QRS/QTC is within normal limits. Radiology Impression Discussion of test interpretation with radiology: I have reviewed the radiologist's reading. Radiologist Impression: Please see the discussion above External Record Review External record reviewed: Inpatient record, Outpatient record, Prior outpatient labs and Prior outpatient radiology Chronic Conditions COPD, pulmonary hypertension Critical Care Time Critical Care Time Critical Care Time: Yes Total Critical Care Time: 60 Attestation: I personally attest to this time spent taking care of the patient. Discharge Plan Discharge Clinical Impression: Acute hypoxic respiratory failure, COPD exacerbation Patient Disposition: Admitted As Inpatient Prescriptions: No Action sertraline 100 mg tablet 1.5 tab PO DAILY omeprazole 20 mg capsule,delayed release(DR/EC) 1 cap PO BID@0630,1630 montelukast 10 mg tablet 1 tab PO BEDTIME albuterol sulfate 90 mcg/actuation HFA aerosol inhaler 2 puff inhalation Q6H PRN (Reason: wheezing) hydroxyzine pamoate 25 mg capsule 1 cap PO BID PRN (Reason: Anxiety) losartan 50 mg tablet 50 mg PO DAILY calcium citrate-vitamin D3 315 mg-6.25 mcg (250 unit) tablet 1 tab PO BID Trelegy Ellipta 200-62.5-25 mcg blister with device 1 ea inhalation DAILY ipratropium-albuterol 0.5 mg-3 mg(2.5 mg base)/3 mL Solution For Nebulization 3 ml inhalation RQ4H WHILE AWAKE Qty: 120 0RF theophylline 400 mg Tablet Extended Release 24 Hr 400 mg PO DAILY Qty: 30 0RF albuterol sulfate 1.25 mg/3 mL Solution For Nebulization 1.25 mg inhalation RQ4H PRN (Reason: Wheezing) 90 Days Qty: 90 0RF prednisone 10 mg tablet See Taper PO DIRECTED Qty: 12 0RF Taper: Prednisone 30 mg daily for 2 Days and 0 Hour 20 mg daily for 2 Days and 0 Hour 10 mg daily for 2 Days and 0 Hour Rx Instructions: see taper instructions Print Language: Mohawk
[2023-07-07 10:27] LABS: Venous Blood Gas Refer to POC result
[2023-07-07 10:27] LABS: VBG Base Excess 10.1 mmol/L; VBG HCO3 38 mmol/L (22-26); VBG pCO2 67 mmHg; VBG pH 7.36 (7.32-7.43); VBG pO2 110 mmHg
[2023-07-07 10:27] LABS: Basophils Percent Auto 0.6 % (0-2); Eosinophils Absolute Auto 0.1 X10*3/uL (0.0-0.4); Hematocrit 43.6 % (37.0-47.0); Hemoglobin 13.8 g/dl (12.0-16.0); Imm Gran Abs Auto 0.04 X10*3/uL (0.00-0.03); Imm Gran Pct Auto 0.8 % (0.0-0.4); Lymphocytes Absolute Auto 0.5 X10*3/uL (1.2-4.9); Lymphocytes Percent Auto 8.9 % (20-40); MANUAL DIFF FLAG NO; Mean Corpuscular HGB Conc 31.7 g/dl (31.0-35.0); Mean Corpuscular Hemoglobin 30.3 pg (27.0-33.0); Mean Corpuscular Volume 95.6 fL (80.0-98.0); Mean Platelet Volume 9.9 fL (9.4-12.3); Monocytes Absolute Auto 0.5 X10*3/uL (0.1-1.2); Monocytes Percent Auto 9.7 % (2-11); Platelet Count 156 X10*3/uL (160-400); Red Blood Count 4.56 X10*6/uL (4.20-5.50); Red Cell Distribution Width 13.6 % (11.0-16.0); White Blood Count 5.1 X10*3/uL (4.8-10.8)
[2023-07-07] MEDS: levalbuterol HCL 1.25 MG/3 ML VIAL.NEB 5 MG INHALE (10:31)
[2023-07-07 10:33] LABS: INTERNATIONAL NORM RATIO 0.9 (0.9-1.1)
[2023-07-07] MEDS: methylPREDNISolone Sod Succ 125 MG/2 ML VIAL IVPUSH (10:35)
[2023-07-07] MEDS: Magnesium Sulfate/H2O 2 GM/50 ML PIGGYBACK IV (10:35)
[2023-07-07 10:36] LABS: Lactic Acid 0.7 mmol/L (0.5-2.0)
[2023-07-07 10:41] LABS: Alanine Aminotransferase 21 U/L (0-31); Albumin Level 3.7 g/dL (3.5-5.0); Alkaline Phosphatase 72 U/L (39-117); Anion Gap 12 (12-20); Aspartate Amino Transferase 17 U/L (5-31); Bilirubin Total 0.5 mg/dL (0.0-1.0); Blood Urea Nitrogen 10 mg/dL (9-16); Calcium 9.4 mg/dL (8.4-10.2); Carbon Dioxide 34 mmol/L (22-29); Chloride 99 mmol/L (96-108); Estimated Glomerular Filt Rate > 60; Glucose Random 119 mg/dL (60-115); Potassium 4.5 mmol/L (3.3-5.1); Sodium 140 mmol/L (135-145)
[2023-07-07 10:46] LABS: B Type Natriuretic Peptide 33 pg/mL (<100)
[2023-07-07 10:49] LABS: Troponin-I High Sensitivity 7.8 ng/L (<3.5-17.0)
[2023-07-07] MEDS: Piperacillin Sodium/Tazobactam 3.375 GM in 0.9 % Sodium Chloride 50 ML IV (11:09)
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
--- OUTSIDE RECORDS SUMMARY | 2023-07-07 11:22 | XMS_ITS | Continuity of Care Document ---
Author Organization [facility] Shahram Address [address] [place] [address]- Care Team Providers Care Hand Finisher Name Role Phone Wm CHAIDEZ, Carmen Harris Primary Care Physician [place] [facility] [place] - 01/[place]/20 [facility] Adult [address] [place] [address]- Attending Physician: Admtr, Ar8 Admitting Physician: Admtr, Ar8 Referring Physician: Admtr, Ar8 Allergies, Adverse Reactions, Alerts Substance Reaction Severity Status codeine Active sulfa drugs rash Active Neosporin Active Tape tape-skin breakdown Active Immunizations Given and Recorded Vaccine Date Status Refusal Reason influenza virus vaccine, inactivated 01/07/19 Give n influenza virus vaccine, inactivated 1 11/14/16 Gi melvina influenza virus vaccine, inactivated 2 12/14/14 Gi emlvina pneumococcal 23-valent vaccine 01/09/16 Given tetanus/diphtheria/pertussis, acel(Tdap) 05/10/14 Given 1Early/Late Reason: Accommodate D/C 2Admin Note: CDC info given to patient Medications albuterol 0.083% inhalation solution 3 mL = 2.5 mg, Inhalation, Every 6 hours, PRN for wheezing, # 60 each, 4 Refills, Maintenance, 05/01/17 11:34:24, Solution Start Date: 05/01/17 Status: Ordered amitriptyline 25 mg oral tablet 25 mg, 1, tablet, By Mouth, Daily at bedtime, replace 10mg, # 30 tablet, Refills 5, Tot. Refills 5,Maintenance, 08/18/19 16:35:00 EDT, Route to Pharmacy Electronically, [facility] #[id number], 157.6, cm, 07/20/19 9:46:00 EDT, Height, 84.9, kg, 1... Start Date: 08/18/19 Status: Ordered anastrozole 1 mg oral tablet 1 tablet = 1 mg, By Mouth, Daily, # 90 tablet, 3 Refills, Maintenance, 07/20/19 10:52:00 EDT, Tablet, [facility] #[id number], 157.6, cm, 07/20/19 9:46:00 EDT, Height, 84.9, kg, 11/18/17 10:16:00EDT, Dry Weight Start Date: 07/20/19 Stop Date: 07/14/20 Status: Ordered aspirin 81 mg oral tablet 1 tablet = 81 mg, By Mouth, Daily, # 90 tablet, 3 Refills, Maintenance, 05/01/17 11:35:18, Tablet Start Date: 05/01/17 Stop Date: 04/26/18 Status: Ordered Azithromycin 5 Day Dose Pack 250 mg oral tablet 1 pack/packet, By Mouth, Once, as directed on package labeling, # 6 tablet, 0 Refills, Soft Stop, 12/25/19 15:15:00 EST, Tablet, [facility] #57628, Partial fill upon patient request, 157.6,cm, 12/25/19 13:55:00 EST, Height Start Date: 12/25/19 Status: Ordered Calcitrate with D 315 mg-250 intl units oral tablet See Instructions, TAKE 1 TABLET BY MOUTH TWICE DAILY, # 60 tablet, 11 Refills, Soft Stop, 08/10/19 7:50:00 EDT, [facility] #56073, TAKE 1 TABLET BY MOUTH TWICE DAILY, 157.6, cm, 07/20/19 9:46:00 EDT, Height, 84.9, kg, 11/18/17 10:16:00 EDT,... Start Date: 08/10/19 Status: Ordered Flonase 50 mcg/inh nasal spray 1 sprays, Nares, Both, 2 times a day, # 1 each, 0 Refills, Maintenance, 03/22/15 15:02:47, [place], 1sprays Nares, Both 2 times a day,x30 days Start Date: 03/22/15 Stop Date: 3/10/16 Status: Ordered ibuprofen 600 mg oral tablet 600 mg, 1, tablet, By Mouth, 2 times a day, # 60 tablet, Refills 0, Tot. Refills 0, Maintenance, 12/13/16 12:53:25, Route to Pharmacy Electronically, [id number], [facility] Start Date: 12/13/16 Status: Ordered Incruse Ellipta 62.5 mcg/inh inhalation powder See Instructions, INHALE 1 PUFF BY MOUTH EVERY 24 HOURS DOSES SHOULD BE TAKEN AT LEAST 24 HOURS APART, # 30 each, 5 Refills, Soft Stop, 10/21/19 16:07:00 EDT, [facility] #58778, 157.6, cm, 07/20/19 9:46:00 EDT, Height, 84.9, kg, 11/18/17 10:... Start Date: 10/21/19 Status: Ordered lisinopril 10 mg oral tablet 10 mg, 1, tablet, By Mouth, Daily, for 90 days, # 90 tablet, Refills 0, Tot. Refills 0, Hard Stop 04/01/20 11:48:00 EST, 01/02/20 11:48:00 EST, Route to Pharmacy Electronically, [facility] #69121, 157.6, cm, 12/25/19 13:55:00 EST, Height Start Date: 01/02/20 Stop Date: 04/01/20 Status: Ordered magnesium oxide 400 mg oral tablet 1 tablet = 400 mg, By Mouth, Daily, for 30 days, # 30 tablet, 6 Refills, Acute 02/15/20 10:51:00 EST, 07/20/19 10:51:00 EDT, [facility] #[id number], 157.6, cm, 07/20/19 9:46:00 EDT, Height, 84.9, kg, 11/18/17 10:16:00 EDT, Dry Weight Start Date: 07/20/19 Stop Date: 02/15/20 Status: Ordered Miscellaneous Rx 1, tablet, By [...] Replace Required Details, Route to Pharmacy Electronically, [id number], [facility] Start Date: 01/07/19 Status: Ordered omeprazole 20 mg oral enteric coated capsule 1 capsule, By Mouth, 2 times a day, [facility], # 60 capsule, 0 Refills, Maintenance, 01/20/20 8:04:00 EST, [id number] 157.6, cm, 12/25/19 13:55:00 EST, Height Start Date: 01/20/20 Status: Ordered Portable Nebulizer and supplies Portable [...] BY MOUTH EVERY DAY, # 45 tablet, 5 Refills, Soft Stop, 10/21/19 16:40:00 EDT, [id number], 157.6, cm, 07/20/19 9:46:00 EDT, Height, 84.9, kg, 11/18/17 10:16:00 EDT, Dry Weight Start Date: 10/21/19 Status: Ordered Tylenol 325 mg oral tablet 325 mg, 1, tablet, By Mouth, 2 times a day, # 60 tablet, Refills 0, Tot. Refills 0, Maintenance, 12/13/16 12:48:45, Route to Pharmacy Electronically, [id number], [facility] Start Date: 12/13/16 Status: Ordered Ventolin HFA 108 mcg/inh inhalation aerosol with adapter 2 puffs, Inhalation, 4 times a day, PRN for wheezing, # 8 Gm, 5 Refills, Maintenance, 06/29/19 14:41:00 EDT, Aerosol, [facility] #[id number], 157.6, cm, 06/29/19 11:18:00 EDT, Height, 84.9, kg, 11/18/17 10:16:00 EDT, Dry Weight Start Date: 06/29/19 Status: Ordered Wixela Inhub 500 mcg-50 mcg inhalation powder 1 puffs, Inhalation, 2 times a day, # 60 each, 3 Refills, Maintenance, 10/28/19 8:50:00 EDT, [facility] #54515, 30, INHALE 1 PUFF BY MOUTH TWICE DAILY, 157.6, cm, 07/20/19 9:46:00 EDT, Height, 84.9, kg, 11/18/17 10:16:00 EDT, Dry Weight Start Date: 10/28/19 Status: Ordered Problem List Condition Effective Dates Status Health Status Inform ant Anxiety(Confirmed) Active Asthma(Confirmed) Active COPD(Confirmed) Active Oxygen dependent(Confirmed) Active Hypertension(Confirmed) Active Osteoarthritis(Confirmed) Active *[facility] [phone] 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
--- OUTSIDE RECORDS SUMMARY | 2023-07-07 11:22 | XMS_ITS | Continuity of Care Document ---
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 Name Role Phone Wm CHAIDEZ, Carmen Harris Primary Care Physician Encounter [facility] Date(s): 12/26/22 - 01/25/23 [facility] Jorje Gallego Adult [address] [place] [address]- Allergies, Adverse Reactions, Alerts Substance Reaction Severity Status codeine Active sulfa drugs rash Active Neosporin Active Tape tape-skin breakdown Active Immunizations Given and Recorded Vaccine Date Status Refusal Reason SARS-CoV-2 mRNA ([id number]-[id number]-[id number]) vax 07/14/21 Given SARS-CoV-2 (COVID-19) mRNA BNT-162b2 [...] Note: CDC info given to patient Medications 02 Rx 02 Rx, See Instructions, # 1 each, Refills 0, Tot. Refills 0, Maintenance, 2LPM at rest 5 LPM with activity and 02 supplies dx COPD J44.9, 10/03/21 10:21:00 EDT, Supply Start Date: 10/03/21 Status: Ordered albuterol 0.083% inhalation solution 3 mL = 2.5 mg, Inhalation, Every 6 hours, PRN for wheezing, # 360 mL, 5 Refills, Maintenance, 01/04/23 13:28:00 EST, Solution, [facility], Partial fill upon patient request if the prescription is for a schedule II opioid drug., 157.6,... Start Date: 01/04/23 Status: Ordered albuterol 0.083% inhalation solution 3 mL = 2.5 mg, Inhalation, Every 6 hours, PRN for wheezing, # 60 each, 4 Refills, Maintenance, 12/12/21 8:44:00 EDT, Solution, [facility]/pharmacy #[id number], 157.6, cm, 11/24/21 13:30:00 EDT, Height Start Date: 12/12/21 Status: Ordered azithromycin 500 mg oral tablet 1 tablet = 500 mg, By Mouth, Every Saturday, Saturday and Saturday, for 30 days, j44.9, # 13 tablet, 6Refills, Acute 08/06/23 13:25:00 EDT, 01/08/23 13:25:00 EST, Tablet, [facility], Partial fill upon patient request if the prescription... Start Date: 01/08/23 Stop Date: 08/06/23 Status: Ordered azithromycin 500 mg oral tablet 1 tablet = 500 mg, By Mouth, Every Saturday, Saturday and Saturday, for 180 days, # 78 tablet, 1 Refills, Acute 11/19/23 10:09:00 EDT, 11/24/22 10:09:00 EDT, Tablet, [facility]/pharmacy #[id number], Partial fill upon patient request if the prescription is for a sched... Start Date: 11/24/22 Stop Date: 11/19/23 Status: Ordered Calcitrate with D 315 mg-250 intl units oral tablet See Instructions, TAKE 1 TABLET BY MOUTH TWICE DAILY, # 60 tablet, 5 Refills, Soft Stop, 07/03/21 16:41:00 EDT, [facility] #[id number], TAKE 1 TABLET BY MOUTH TWICE DAILY, 157.6, cm, 10/14/20 13:53:00 EDT, Height Start Date: 07/03/21 Status: Ordered calcium (as citrate)-vitamin D 315 mg-250 intl units oral tablet 1 tablet, By Mouth, 2 times a day, # 60 tablet, 6 Refills, Maintenance, 01/07/23 6:56:00 EST, Tablet, [facility], Partial fill upon patient request if the prescription is for a schedule II opioid drug., 1 tablet By Mouth 2 times a day... Start Date: 01/07/23 Status: Ordered CALCIUM CITRATE + D3 MAX [...] 5 Refills, Maintenance, 05/08/22 8:43:00 EDT, Tablet, [facility]/pharmacy #[id number], Partial fill upon patient request if the [...] NEEDED, # 180 capsule, 1 Refills, Maintenance, 01/07/23 6:54:00 EST, [facility], 157.6, cm, 11/26/22 9:24:00 EDT, Height Start Date: 01/07/23 Status: Ordered losartan 50 mg oral tablet 50 mg, 1, tablet, By Mouth, Daily, # 30 tablet, Refills 11, Tot. Refills 11, Maintenance, 01/07/23 6:54:00 EST, Route to Pharmacy Electronically, [facility], Partial fill upon patient request if the prescription is for a schedule II o... Start Date: 01/07/23 Status: Ordered Miscellaneous Rx 1, tablet, By Mouth, 2 times a day, # 60 tablet, 0 Refills, Maintenance, 07/24/19 8:51:00 EDT, 157.6, cm, 07/20/19 9:46:00 EDT, Height, 84.9, kg, 11/18/17 10:16:00 EDT, Dry Weight Start Date: 07/24/19 Status: Ordered montelukast 10 mg oral tablet 1, tablet, By Mouth, Daily in PM, # 90 tablet, Refills 1, Tot. Refills 1, Maintenance, 01/07/23 6:53:00 EST, Route to Pharmacy Electronically, [facility], 157.6, cm, 11/26/22 9:24:00EDT, Height Start Date: 01/07/23 Status: Ordered O2 evaluation O2 evaluation, See Instructions, # 1 each, Refills 11, Tot. Refills 11, Maintenance, updated O2 Rx for this patient for the following: Pt requires 2LPM at rest and 3 LPM with activity/portability. [facility] J44.9 J45.909, .. Start Date: 12/14/22 Status: Ordered omeprazole 20 mg oral enteric coated capsule 1 capsule, By Mouth, 2 times a day, # 180 capsule, 0 Refills, Maintenance, 01/07/23 6:53:00 EST, [facility], 157.6, cm, 11/26/22 9:24:00 EDT, Height Start Date: 01/07/23 Status: Ordered Portable Nebulizer and supplies Portable Nebulizer and supplies, See Instructions, # 1 each, Refills 11, Tot. Refills 11, Maintenance, Portable Nebulizer A7003 Neb Disp Set A7014 Neb non- Disp Filter A7005 Neb Non-Disp set A7015 Aerosol Mask A7013 Neb Disp Filter Dx COPD J44.9 Le... Start Date: 06/30/19 Status: Ordered predniSONE 20 mg oral tablet See Instructions, Take 2 tablets by mouth daily x 5 days, then 1.5 tablets by mouth daily x 2 days,then 1 tablet by mouth daily x 2 days, then 0.5 tablets by mouth daily x 2 days, then stop, # 16 tablet, 0 Refills, Maintenance, 11/09/22 10:06:00 EDT,... Start Date: 11/09/22 Status: Ordered sertraline 100 mg oral tablet 1.5 tablet, By Mouth, Daily, # 135 tablet, 1 Refills, Maintenance, 01/07/23 6:53:00 EST, [facility], 157.6, cm, 11/26/22 9:24:00 EDT, Height Start Date: 01/07/23 Status: Ordered Trelegy Ellipta 200 mcg-62.5 mcg-25 mcg/inh inhalation powder 1 puffs, Inhalation, Daily, at the same time every day, j44.9, # 1 each, 6 Refills, Maintenance, 10/10/22 15:08:00 EDT, Powder, [facility], Partial fill upon patient request if the prescription is for a schedule II opioid drug., 1 puf... Start Date: 10/10/22 Status: Ordered Tylenol 325 mg oral tablet 325 mg, 1, tablet, By Mouth, 2 times a day, # 60 tablet, Refills 0, Tot. Refills 0, Maintenance, 12/13/16 12:48:45, Route to Pharmacy Electronically, [id number], [facility] [id number] Start Date: 12/13/16 Status: Ordered Ventolin HFA 108 mcg/inh inhalation aerosol with adapter 2 puffs, Inhalation, 4 times a day, PRN for wheezing, brand name medically necessary, # 18 Gm, 5 Refills, Maintenance, 01/04/23 13:28:00 EST, Aerosol, [facility], 157.6, cm, :24:00 EDT, Height Start Date: 01/04/23 Status: Ordered Problem List Condition Confirmation Course Effective Dates Status H ealth Status Informant Anxiety Confirmed Active Asthma Confirmed Active Oxygen dependent Confirmed Active Hypertension Confirmed Active Depression, major, in remission Confirmed Active Osteoarthritis Confirmed Active *[facility] [phone] 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 PTSD (post-traumatic stress disorder) 1 Confirmed Active Ductal carcinoma Confirmed Active COPD, severe Confirmed Active Severe obesity (BMI 35.0-39.9) with comorbidity Confirmed Active Vitamin D deficiency Confirmed Active [...] Care Team Personnel Name: Natalia Kennedy Position: [facility] Onco RN Member Role: Primary Care Nurse Name: Wm CHAIDEZ, Carmen Harris Position: [facility] PCO Associate Professional Member Role: PCP Address: Address: [address] [place] [id number] Care Team Related Persons Name: STACIE HORTON Address: home [address] [place] [address] Name: STACIE CHARLES Address: home [address] [place] [address] Name: LUCIANO GRIMES Address: home [address] [place] [id number]
--- OUTSIDE RECORDS SUMMARY | 2023-07-07 11:22 | XMS_ITS | Continuity of Care Document ---
Author Organization [facility] Shahram Address [address] [place] [address]- Care Team Providers Care Surgical Scrub Technician Name Role Phone Wm CHAIDEZ, Carmen Harris Primary Care Physician [phone] Encounter [facility] Date(s): 07/27/22 - 08/26/22 [facility] Adult [address] [place] [address]- Attending Physician: Admheriberto, Bob8 Admitting Physician: AdmtrLori Referring Physician: Admtr, Ar8 Allergies, Adverse Reactions, Alerts Substance Reaction Severity Status codeine Active sulfa drugs rash Active Neosporin Active Tape tape-skin breakdown Active Immunizations Given and Recorded Vaccine Date Status Refusal Reason SARS-CoV-2 mRNA (fwxeoad-snyc-wrrha) vax 07/14/21 Given SARS-CoV-2 (COVID-19) mRNA BNT-162b2 [...] Given 1Early/Late Reason: Accommodate D/C 2Admin Note: [facility] info given to patient Medications 02 Rx [...] 6 Refills, Maintenance, 07/12/22 16:43:00 EDT, Solution, [id number], Partial fill upon patient request if the prescription is for a schedule II opioid drug., 157.6, cm, ... Start Date: 07/12/22 Status: Ordered albuterol 0.083% [...] Date: 12/12/21 Stop Date: 12/07/22 Status: Ordered Azithromycin 5 Day Dose Pack 250 mg oral tablet 1 pack/packet, By Mouth, Once, # 1 pack/packet, 0 Refills, Soft Stop, 08/08/22 16:12:00 EDT, Tablet, [facility], Partial fill upon patient request if the prescription is for a schedule II opioid drug., 157.6, cm, 07/12/22 16:25:00 EDT, Height Start Date: 08/08/22 Status: Ordered Calcitrate with D 315 mg-250 intl units oral tablet See Instructions, TAKE 1 TABLET BY MOUTH TWICE DAILY, # 60 tablet, 5 Refills, Soft Stop, 07/03/21 16:41:00 EDT, [facility] #[id number], TAKE 1 TABLET BY MOUTH TWICE DAILY, [...] 5 Refills, Maintenance, 05/08/22 8:43:00 EDT, Tablet, [facility]/pharmacy #2339, Partial fill upon patient request [...] capsule, 1 Refills, Maintenance, 06/18/22 14:19:00 EDT, [id number], 157.6, cm, 05/23/22 11:27:00 EDT, Height Start Date: 06/18/22 Status: Ordered losartan 50 mg oral tablet 50 mg, 1, tablet, By Mouth, Daily, # 30 tablet, Refills 11, Tot. Refills 11, Maintenance, 05/23/22 11:59:00 EDT, Route to Pharmacy Electronically, [facility]/pharmacy #2338, Partial fill upon patient request if the prescription is for a schedule II opioid drUrszula. Start Date: 05/23/22 Status: Ordered magnesium oxide 400 mg oral tablet 1 tablet = 400 mg, By Mouth, Daily, for 30 days, # 30 tablet, 11 Refills, Acute 12/07/22 8:48:00 EDT, 12/12/21 8:48:00 EDT, [facility]/pharmacy #2339, 157.6, cm, 11/24/21 13:30:00 EDT, [...] 06/17/22 9:57:00 EDT, Route to Pharmacy Electronically, [id number], 157.6, cm, 05/23/22 11:27:00 EDT, Height Start Date: 06/17/22 Status: Ordered omeprazole 20 mg oral enteric coated capsule 1 capsule, By Mouth, 2 times a day, # 180 capsule, 0 Refills, Maintenance, 06/06/22 8:30:00 EDT, [facility]/pharmacy #2339, 157.6, cm, 05/23/22 11:27:00 EDT, Height [...] stop, # 16 tablet, 0 Refills, Maintenance, 08/08/22 16:12:00 EDT,... Start Date: 08/08/22 Status: Ordered sertraline 100 mg oral tablet 1.5 tablet, By Mouth, Daily, # 135 tablet, 1 Refills, Maintenance, 06/18/22 14:19:00 EDT, [id number], 157.6, cm, 05/23/22 11:27:00 EDT, Height Start Date: 06/18/22 Status: Ordered Trelegy Ellipta 200 mcg-62.5 mcg-25 mcg/inh inhalation powder 1 puffs, Inhalation, Daily, at the same time every day, # 1 each, 6 Refills, Maintenance, 07/12/22 16:19:00 EDT, Powder, [facility]/pharmacy #[id number], Partial fill upon patient request if the prescription is for a schedule II opioid drug., 1 puffs Inhalation Da... Start Date: 07/12/22 Status: Ordered Tylenol 325 mg oral tablet 325 mg, 1, tablet, By Mouth, 2 times a day, # 60 tablet, Refills 0, Tot. Refills 0, Maintenance, 12/13/16 12:48:45, Route to Pharmacy Electronically, [id number], [facility] [id number] Start Date: 12/13/16 Status: Ordered Ventolin HFA 108 mcg/inh inhalation aerosol with adapter 2 puffs, Inhalation, 4 times a day, PRN for wheezing, brand name medically necessary, # 8 Gm, 5 Refills, Maintenance, 12/18/21 12:07:00 EST, Aerosol, [facility]/pharmacy #2339, 157.6, cm, 11/24/21 13:30:00 EDT, Height Start Date: 12/18/21 Status: Ordered Problem List Condition Confirmation Course Effective Dates Status H ealth Status Informant Anxiety Confirmed Active Asthma Confirmed Active Oxygen dependent Confirmed Active Hypertension Confirmed Active Depression, major, in remission Confirmed Active Obese class I Confirmed Active Osteoarthritis Confirmed Active *[facility] [phone] 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 PTSD (post-traumatic stress [...] at age: 45; entered on: 06/29/19 Sex EKG study * Event Display: EKG Authored Date: * Event Display: EKG Authored Date: Laboratory * Event Display: Non BH Lab Results Authored Date: MG Breast Views * Event Display: MM Mammogram Authored Date: Patient Care team information Care Team Personnel Name: Natalia Kennedy Position: [facility] Onco RN Member Role: Primary Care Nurse Name: Carmen Burk NP Position: [facility] PCO Associate Professional Member Role: PCP Address: Address: [address] [place] [address] Care Team Related Persons Name: STACIE HORTON Address: [address] [place] [address] Name: STACIE CHARLES Address: home [address] [place] [address] Name: LUCIANO GRIMES Address: [address] [address]
--- OUTSIDE RECORDS SUMMARY | 2023-07-07 11:23 | XMS_ITS | Continuity of Care Document ---
Author Organization [facility] ter Address [address] [place] [address]- Care Team Providers Care Application Development Intern Name Role Phone Wm CHAIDEZ, Carmen Harris Primary Care Physician Encounter [facility] Date(s): 04/27/22 - 05/27/[address] [address]- Attending Physician: Not on Staff, Attending MD Admitting Physician: Not on Staff, Admitting MD Referring Physician: Not on Staff, Referring MD Allergies, Adverse Reactions, Alerts Substance Reaction Severity Status codeine Active Neosporin Active Tape tape-skin breakdown Active sulfa drugs rash Active Immunizations Given and Recorded Vaccine Date Status Refusal Reason SARS-CoV-2 mRNA (pcckjui-qycr-egiuu) vax 07/14/21 Given SARS-CoV-2 (COVID-19) mRNA BNT-162b2 [...] Given 1Early/Late Reason: Accommodate D/C 2Admin Note: [facility] info given to patient Medications 02 Rx [...] 5 Refills, Soft Stop, 07/03/21 16:41:00 EDT, [facility] #[id number], TAKE 1 TABLET BY MOUTH TWICE DAILY, [...] 5 Refills, Maintenance, 05/08/22 8:43:00 EDT, Tablet, [facility], Partial fill upon [...] By Mouth, 2 times a day, PRN NEEDED FOR ANXIETY, for 30 days, schedule physical with Carmen Burk KILN TENDER, # 60 capsule, 5 Refills, Acute 06/10/22 8:47:00 EDT, 12/12/21 8:47:00 EDT, [facility]/pharmacy #2339, 157.6, cm, 11/24/21 13:30:00 EDT, Height Start Date: 12/12/21 Stop Date: 06/10/22 Status: Ordered Incruse Ellipta 62.5 mcg/inh inhalation powder 1 each, Inhalation, Every 24 hours, doses should be taken at least 24 hours apart, j45.40, # 1 each, 6 Refills, Maintenance, 12/12/21 8:50:00 EDT, Powder, [facility]/pharmacy #2339, Partial fill upon patient request if the prescription is for a schedule II o... Start Date: 12/12/21 Status: Ordered losartan 50 mg oral tablet 50 mg, 1, tablet, By Mouth, Daily, # 30 tablet, Refills 11, Tot. Refills 11, Maintenance, 05/23/22 11:59:00 EDT, Route to Pharmacy Electronically, [facility]/pharmacy #2339, Partial fill upon patient request if the prescription is for a schedule II opioid dr... Start Date: 05/23/22 Status: Ordered magnesium oxide [...] 90 tablet, Refills 1, Tot. Refills 1, 12/12/21 8:48:00 EDT, [facility] 157.6, cm, 11/24/21 13:30:00 EDT, Height Start Date: 12/12/21 Status: Ordered omeprazole 20 mg oral enteric coated capsule 1 capsule, By Mouth, 2 times a day, # 180 capsule, 0 Refills, Maintenance, 03/08/22 18:50:00 EST, [facility] 138[facility], 157.6, cm, 11/24/21 13:30:00 EDT, Height Start Date: 03/08/22 Status: Ordered Portable Nebulizer and supplies Portable Nebulizer and supplies, See Instructions, # 1 each, Refills 11, Tot. Refills 11, Maintenance, Portable Nebulizer A7003 Neb Disp Set A7014 Neb non- Disp Filter A7005 Neb Non-Disp set A7015 Aerosol Mask A7013 Neb Disp Filter Dx COPD J44.9 Le... Start Date: 06/30/19 Status: Ordered sertraline 100 mg oral tablet 1.5 tablet, By Mouth, Daily, # 45 tablet, 5 Refills, 12/12/21 8:49:00 EDT, [facility]/pharmacy #2339, 157.6, cm, 11/24/21 13:30:00 EDT, Height Start Date: 12/12/21 Status: Ordered Tylenol 325 mg oral tablet 325 mg, 1, tablet, By Mouth, 2 times a day, # 60 tablet, Refills 0, Tot. Refills 0, Maintenance, 12/13/16 12:48:45, Route to Pharmacy Electronically, [id number], [facility] [address] Start Date: 12/13/16 Status: Ordered Ventolin HFA 108 mcg/inh inhalation aerosol with adapter 2 puffs, Inhalation, 4 times a day, PRN for wheezing, brand name medically necessary, # 8 Gm, 5 Refills, Maintenance, 12/18/21 12:07:00 EST, Aerosol, [facility], 157.6, cm, 11/24/21 13:30:00 EDT, Height Start Date: 12/18/21 Status: Ordered Wixela Inhub 500 mcg-50 mcg inhalation powder 1 puffs, Inhalation, 2 times a day, # 60 each, 5 Refills, 12/12/21 8:47:00 EDT, [id number], 1 puffs Inhalation 2 times a day, 157.6, cm, 11/24/21 13:30:00 EDT, Height Start Date: 12/12/21 Status: Ordered Problem List Condition Confirmation Course Effective Dates Status H ealth Status Informant Anxiety Confirmed Active Asthma Confirmed Active Oxygen dependent Confirmed Active Hypertension Confirmed Active Depression, major, in remission Confirmed Active Obese class I Confirmed Active Osteoarthritis Confirmed Active *[facility] [phone] 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
--- OUTSIDE RECORDS SUMMARY | 2023-07-07 11:23 | XMS_ITS | Continuity of Care Document ---
Author Organization [facility] Jorje Gallego Shahram Address [address] [place] [address]- Care Team Providers Care Postal Superintendent Name Role Phone Wm CHAIDEZ, Carmen Harris Primary Care Physician Encounter [facility] Date(s): 12/14/22 - 01/13/23 [facility] Jorje Gallego Adult [address] [place] [address]- Allergies, Adverse Reactions, Alerts Substance Reaction Severity Status codeine Active sulfa drugs rash Active Neosporin Active Tape tape-skin breakdown Active Immunizations Given and Recorded Vaccine Date Status Refusal Reason SARS-CoV-2 mRNA ([id number]-[id number]-bcmql) vax 07/14/21 Given SARS-CoV-2 (COVID-19) mRNA BNT-162b2 [...] 5 Refills, Maintenance, 01/04/23 13:28:00 EST, Solution, [facility], Partial fill upon patient request if the prescription is for a schedule II opioid drug., 157.6,... Start Date: 01/04/23 Status: Ordered albuterol 0.083% inhalation solution 3 mL = 2.5 mg, Inhalation, Every 6 hours, PRN for wheezing, # 60 each, 4 Refills, Maintenance, 12/12/21 8:44:00 EDT, Solution, [facility]/pharmacy #[id number], 157.6, cm, 11/24/21 13:30:00 EDT, Height Start Date: 12/12/21 Status: Ordered azithromycin 500 mg oral tablet 1 tablet = 500 mg, By Mouth, Every Saturday, Saturday and Saturday, for 30 days, j44.9, # 13 tablet, 6Refills, Acute 08/06/23 13:25:00 EDT, 01/08/23 13:25:00 EST, Tablet, [facility], Partial fill upon patient request if the prescription... Start Date: 01/08/23 Stop Date: 08/06/23 Status: Ordered azithromycin 500 mg oral tablet 1 tablet = 500 mg, By Mouth, Every Saturday, Saturday and Saturday, for 180 days, # 78 tablet, 1 Refills, Acute 11/19/23 10:09:00 EDT, 11/24/22 10:09:00 EDT, Tablet, [facility]/pharmacy #2339, Partial fill upon patient request if the prescription is for a sched... Start Date: 11/24/22 Stop Date: 11/19/23 Status: Ordered Calcitrate with D 315 mg-250 intl units oral tablet See Instructions, TAKE 1 TABLET BY MOUTH TWICE DAILY, # 60 tablet, 5 Refills, Soft Stop, 07/03/21 16:41:00 EDT, [facility] #[id number], TAKE 1 TABLET BY MOUTH TWICE DAILY, 157.6, cm, 10/14/20 13:53:00 EDT, Height Start Date: 07/03/21 Status: Ordered calcium (as citrate)-vitamin D 315 mg-250 intl units oral tablet 1 tablet, By Mouth, 2 times a day, # 60 tablet, 6 Refills, Maintenance, 01/07/23 6:56:00 EST, Tablet, [facility], Partial fill upon patient [...] 5 Refills, Maintenance, 05/08/22 8:43:00 EDT, Tablet, [facility]/pharmacy #[id number], Partial fill upon patient request if the [...] capsule, 1 Refills, Maintenance, 01/07/23 6:54:00 EST, [facility], 157.6, cm, 11/26/22 9:24:00 EDT, Height Start Date: 01/07/23 Status: Ordered losartan 50 mg oral tablet 50 mg, 1, tablet, By Mouth, Daily, # 30 tablet, Refills 11, Tot. Refills 11, Maintenance, 01/07/23 6:54:00 EST, Route to Pharmacy Electronically, [facility], Partial fill upon patient [...] 01/07/23 6:53:00 EST, Route to Pharmacy Electronically, [facility], 157.6, cm, 11/26/22 9:24:00EDT, Height Start Date: 01/07/23 Status: Ordered O2 evaluation O2 evaluation, See Instructions, # 1 each, Refills 11, Tot. Refills 11, Maintenance, updated O2 Rx for this patient for the following: Pt requires 2LPM at rest and 3 LPM with activity/portability. [facility] J44.9 J45.909, .. Start Date: 12/14/22 Status: Ordered omeprazole 20 mg oral enteric coated capsule 1 capsule, By Mouth, 2 times a day, # 180 capsule, 0 Refills, Maintenance, 01/07/23 6:53:00 EST, [facility], 157.6, cm, 11/26/22 9:24:00 [...] tablet, 1 Refills, Maintenance, 01/07/23 6:53:00 EST, [facility], 157.6, cm, 11/26/22 9:24:00 EDT, Height Start Date: 01/07/23 Status: Ordered Trelegy Ellipta 200 mcg-62.5 mcg-25 mcg/inh inhalation powder 1 puffs, Inhalation, Daily, at the same time every day, j44.9, # 1 each, 6 Refills, Maintenance, 10/10/22 15:08:00 EDT, Powder, [facility], Partial fill upon patient request if the prescription is for a schedule II opioid drug., 1 puf... Start Date: 10/10/22 Status: Ordered Tylenol 325 mg oral tablet 325 mg, 1, tablet, By Mouth, 2 times a day, # 60 tablet, Refills 0, Tot. Refills 0, Maintenance, 12/13/16 12:48:45, Route to Pharmacy Electronically, [id number], [facility] [id number] Start Date: 12/13/16 Status: Ordered Ventolin HFA 108 mcg/inh inhalation aerosol with adapter 2 puffs, Inhalation, 4 times a day, PRN for wheezing, brand name medically necessary, # 18 Gm, 5 Refills, Maintenance, 01/04/23 13:28:00 EST, Aerosol, [facility], 157.6, cm, :24:00 EDT, Height Start Date: 01/04/23 Status: Ordered Problem List Condition Confirmation Course Effective Dates Status H ealth Status Informant Anxiety Confirmed Active Asthma Confirmed Active Oxygen dependent Confirmed Active Hypertension Confirmed Active Depression, major, in remission Confirmed Active Osteoarthritis Confirmed Active *[facility] [phone] 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
--- OUTSIDE RECORDS SUMMARY | 2023-07-07 11:23 | XMS_ITS | Continuity of Care Document ---
Author Organization [facility] Address [address] [place] [address]- Care Team Providers Care Impress Associate Name Role Phone Wm CHAIDEZ, Carmen Harris Primary Care Physician Encounter [facility] Date(s): 07/12/22 - 08/11/22 [facility] [address] [place] [address]- Allergies, Adverse Reactions, Alerts Substance Reaction Severity Status codeine Active sulfa drugs rash Active Neosporin Active Tape tape-skin breakdown Active Immunizations Given and Recorded Vaccine Date Status Refusal Reason SARS-CoV-2 mRNA (dukjtpj-jitq-pyhwr) vax 07/14/21 Given SARS-CoV-2 (COVID-19) mRNA BNT-162b2 [...] 6 Refills, Maintenance, 07/12/22 16:43:00 EDT, Solution, [facility]/pharmacy #0488, Partial fill upon patient request if the prescription is for a schedule II opioid drug., 157.6, cm, 0... Start Date: 07/12/22 Status: Ordered albuterol 0.083% inhalation solution 3 mL = 2.5 mg, Inhalation, Every 6 hours, PRN for wheezing, # 60 each, 4 Refills, Maintenance, 12/12/21 8:44:00 EDT, Solution, [facility]/pharmacy #2339, 157.6, cm, 11/24/21 13:30:00 EDT, Height [...] 5 Refills, Soft Stop, 07/03/21 16:41:00 EDT, [facility] #[id number], TAKE 1 TABLET BY MOUTH TWICE DAILY, [...] 5 Refills, Maintenance, 05/08/22 8:43:00 EDT, Tablet, [facility]/pharmacy #2339, Partial fill upon patient request if [...] Refills, Maintenance, 06/18/22 14:19:00 EDT, [facility], 157.6, cm, 05/23/22 11:27:00 EDT, Height Start Date: 06/18/22 Status: Ordered losartan 50 mg oral tablet 50 mg, 1, tablet, By Mouth, Daily, # 30 tablet, Refills 11, Tot. Refills 11, Maintenance, 05/23/22 11:59:00 EDT, Route to Pharmacy Electronically, [facility]/pharmacy #2339, Partial fill upon patient request if the prescription is for a schedule II opioid drUrszula. Start Date: 05/23/22 Status: Ordered magnesium oxide 400 mg oral tablet 1 tablet = 400 mg, By Mouth, Daily, for 30 days, # 30 tablet, 11 Refills, Acute 12/07/22 8:48:00 EDT, 12/12/21 8:48:00 EDT, [facility]/pharmacy #2339, 157.6, cm, 11/24/21 13:30:00 EDT, Height [...] 06/17/22 9:57:00 EDT, Route to Pharmacy Electronically, [facility], 157.6, cm, 05/23/22 11:27:00 EDT, Height Start Date: 06/17/22 Status: Ordered omeprazole 20 mg oral enteric coated capsule 1 capsule, By Mouth, 2 times a day, # 180 capsule, 0 Refills, Maintenance, 06/06/22 8:30:00 EDT, [facility]/pharmacy #2339, 157.6, cm, 05/23/22 11:27:00 EDT, Height [...] tablet, 1 Refills, Maintenance, 06/18/22 14:19:00 EDT, [id number], 157.6, cm, 05/23/22 11:27:00 EDT, Height Start Date: 06/18/22 Status: Ordered Trelegy Ellipta 200 mcg-62.5 mcg-25 mcg/inh inhalation powder 1 puffs, Inhalation, Daily, at the same time every day, # 1 each, 6 Refills, Maintenance, 07/12/22 16:19:00 EDT, Powder, [facility]/pharmacy #0488, Partial fill upon patient request if the prescription is for a schedule II opioid drug., 1 puffs Inhalation Da... Start Date: 07/12/22 Status: Ordered Tylenol 325 mg oral tablet 325 mg, 1, tablet, By Mouth, 2 times a day, # 60 tablet, Refills 0, Tot. Refills 0, Maintenance, 12/13/16 12:48:45, Route to Pharmacy Electronically, [id number], [facility] Start Date: 12/13/16 Status: Ordered Ventolin HFA 108 mcg/inh inhalation aerosol with adapter 2 puffs, Inhalation, 4 times a day, PRN for wheezing, brand name medically necessary, # 8 Gm, 5 Refills, Maintenance, 12/18/21 12:07:00 EST, Aerosol, [facility]/pharmacy #2339, 157.6, cm, 11/24/21 13:30:00 EDT, Height Start Date: 12/18/21 Status: Ordered Problem List Condition Confirmation Course Effective Dates Status H ealth Status Informant Anxiety Confirmed Active Asthma Confirmed Active Oxygen dependent Confirmed Active Hypertension Confirmed Active Depression, major, in remission Confirmed Active Obese class I Confirmed Active Osteoarthritis Confirmed Active *[facility] [phone] 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
--- OUTSIDE RECORDS SUMMARY | 2023-07-07 11:23 | XMS_ITS | Continuity of Care Document ---
Author Organization [facility] Jorje Gallego Shahram Address [address] [place] [address]- Care Team Providers Care Spine Surgeon Name Role Phone Wm CHAIDEZ, Carmen Harris Primary Care Physician [facility]counter [facility] Date(s): 05/24/22 - 06/23/22 [facility] Jorje Garsialey Adult [address] [place] [address]- Allergies, Adverse Reactions, Alerts Substance Reaction Severity Status codeine Active Neosporin Active Tape tape-skin breakdown Active sulfa drugs rash Active Immunizations Given and Recorded Vaccine Date Status Refusal Reason SARS-CoV-2 mRNA (xknvbrr-atpy-tmrzd) vax 07/14/21 Given SARS-CoV-2 (COVID-19) mRNA BNT-162b2 [...] Given 1Early/Late Reason: Accommodate D/C 2Admin Note: [facility] info given to patient Medications 02 [...] 5 Refills, Soft Stop, 07/03/21 16:41:00 EDT, [facility] #[id number], TAKE 1 TABLET BY MOUTH TWICE DAILY, [...] Refills, Maintenance, 06/18/22 14:19:00 EDT, [facility], 157.6, cm, 05/23/22 11:27:00 EDT, Height Start Date: 06/18/22 Status: Ordered Incruse Ellipta 62.5 mcg/inh inhalation powder 1 each, Inhalation, Every 24 hours, doses should be taken at least 24 hours apart, j45.40, # 1 each, 6 Refills, Maintenance, 12/12/21 8:50:00 EDT, Powder, [facility]/pharmacy #2339, Partial fill upon patient request if the prescription is for a schedule II o... Start Date: 12/12/21 Status: Ordered losartan 50 mg oral tablet 50 mg, 1, tablet, By Mouth, Daily, # 30 tablet, Refills 11, Tot. Refills 11, Maintenance, 05/23/22 11:59:00 EDT, Route to Pharmacy Electronically, [facility]/pharmacy #2339, Partial fill upon patient request if the prescription is for a schedule II opioid dr... Start Date: 05/23/22 Status: Ordered magnesium oxide 400 mg oral tablet 1 tablet = 400 mg, By Mouth, Daily, for 30 days, # 30 tablet, 11 Refills, Acute 12/07/22 8:48:00 EDT, 12/12/21 8:48:00 EDT, [facility]/pharmacy #2339, 157.6, cm, 11/24/21 13:30:00 EDT, [...] 06/17/22 9:57:00 EDT, Route to Pharmacy Electronically, [facility], 157.6, cm, 05/23/22 11:27:00 EDT, Height Start Date: 06/17/22 Status: Ordered omeprazole 20 mg oral enteric coated capsule 1 capsule, By Mouth, 2 times a day, # 180 capsule, 0 Refills, Maintenance, 06/06/22 8:30:00 EDT, [facility]/pharmacy #2339, 157.6, cm, 05/23/22 11:27:00 EDT, [...] tablet, 1 Refills, Maintenance, 06/18/22 14:19:00 EDT, [id number], 157.6, cm, 05/23/22 11:27:00 EDT, Height Start Date: 06/18/22 Status: Ordered Tylenol 325 mg oral tablet 325 mg, 1, tablet, By Mouth, 2 times a day, # 60 tablet, Refills 0, Tot. 

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
--- OUTSIDE RECORDS SUMMARY | 2023-07-07 11:23 | XMS_ITS | Continuity of Care Document ---
Author Organization [facility] Jorje Gallego Shahram Address [address] [place] [address]- Care Team Providers Care Commercial Loan Assistant Name Role Phone Wm CHAIDEZ, Carmen Harris Primary Care Physician [place] [facility] [place] Date(s): 09/25/21 - 10/25/21 [facility] Jorje Gallego Adult [address] [place] [address]- Allergies, Adverse Reactions, Alerts Substance Reaction Severity Status codeine Active Neosporin Active Tape tape-skin breakdown Active sulfa drugs rash Active Immunizations Given and Recorded Vaccine Date Status Refusal Reason SARS-CoV-2 mRNA ([id number]) vax 07/14/21 Given SARS-CoV-2 (COVID-19) mRNA BNT-162b2 [...] Stop 04/02/22 10:38:00 EST, 04/07/21 10:38:00 EST, [facility] #[id number], 157.6, cm, 10/14/20 13:53:00 EDT, Height Start Date: 04/07/21 Stop Date: 04/02/22 Status: Ordered Calcitrate with D 315 mg-250 intl units oral tablet See Instructions, TAKE 1 TABLET BY MOUTH TWICE DAILY, # 60 tablet, 5 Refills, Soft Stop, 07/03/21 16:41:00 EDT, [facility] #[id number], TAKE 1 TABLET BY MOUTH TWICE DAILY, [...] 5 Refills, Maintenance, 07/14/21 13:10:00 EDT, Tablet, [facility] #[id number], Partial fill upon patient request if the prescription is for a schedule II opioid drug., 1 tablet By Mouth Daily, 157.6, cm, 06... Start Date: 07/14/21 Status: Ordered hydrOXYzine pamoate 25 mg oral capsule 1 capsule, By Mouth, 2 times a day, PRN NEEDED FOR ANXIETY, for 30 days, schedule physical with Carmen Burk [employer] MANAGER, # 60 capsule, 5 Refills, Acute 12/30/21 9:11:00 EST, 07/03/21 9:11:00 EDT, [facility] #57886, 157.6, cm, 10/14/20 13:53:00... Start Date: 07/03/21 Stop Date: 12/30/21 Status: Ordered Incruse Ellipta 62.5 mcg/inh inhalation powder 1 each, Inhalation, Every 24 hours, doses should be taken at least 24 hours apart, [id number], # 1 each, 6 Refills, Maintenance, 09/29/21 16:43:00 EDT, Powder, [facility] #66877, Partial fill upon patient request if the prescription is for a gloria... Start Date: 09/29/21 Status: Ordered lisinopril 10 mg oral tablet 1, tablet, By Mouth, Daily, # 90 tablet, Refills 3, Tot. Refills 3, Maintenance, 07/05/21 8:57:00 EDT, Route to Pharmacy Electronically, [facility] #[id number], 157.6, cm, 10/14/20 13:53:00 EDT,Height Start Date: 07/05/21 Status: Ordered magnesium oxide 400 mg oral tablet 1 tablet = 400 mg, By Mouth, Daily, for 30 days, # 30 tablet, 11 Refills, Acute 07/09/22 13:16:00 EDT, 07/14/21 13:16:00 EDT, [facility] #[id number], 157.6, cm, 07/14/21 12:48:00 EDT, Height Start [...] tablet, Refills 1, Route to Pharmacy Electronically, [facility] #11889, 157.6, cm, 07/14/21 12:48:00 EDT, Height Start Date: 09/19/21 Status: Ordered omeprazole 20 mg oral enteric coated capsule 1 capsule, By Mouth, 2 times a day, # 180 capsule, 0 Refills, Maintenance, 07/03/21 16:41:00 EDT, [facility] #[id number], Please use this script, 157.6, cm, 10/14/20 [...] 45 tablet, 5 Refills, 07/05/21 8:57:00 EDT, [facility] #[id number], 157.6, cm, 10/14/20 13:53:00 EDT, Height Start Date: 07/05/21 Status: Ordered traZODone 50 mg oral tablet 50 mg, 1, tablet, By Mouth, Daily at bedtime, # 30 tablet, Refills 6, Tot. Refills 6, Maintenance, 07/14/21 13:05:00 EDT, Route to Pharmacy Electronically, [facility] #[id number], Partial fill upon patient request if the prescription is for a gloria... Start Date: 07/14/21 Stop Date: 02/09/22 Status: Ordered Tylenol 325 mg oral tablet 325 mg, 1, tablet, By Mouth, 2 times a day, # 60 tablet, Refills 0, Tot. Refills 0, Maintenance, 12/13/16 12:48:45, Route to Pharmacy Electronically, [id number], [facility] [address] Start Date: 12/13/16 Status: Ordered Ventolin HFA 108 mcg/inh inhalation aerosol with adapter 2 puffs, Inhalation, 4 times a day, PRN for wheezing, # 8 Gm, 5 Refills, Maintenance, 05/03/21 10:58:00 EDT, Aerosol, [facility] #[id number], 157.6, cm, 10/14/20 13:53:00 EDT, Height Start Date: 05/03/21 Status: Ordered Wixela Inhub 500 mcg-50 mcg inhalation powder 1 puffs, Inhalation, 2 times a day, # 60 each, 5 Refills, [facility] #[id number], 30, INHALE 1PUFF BY MOUTH TWICE DAILY, 157.6, cm, 10/14/20 13:53:00 EDT, Height Start Date: 06/01/21 Status: Ordered Problem List Condition Effective Dates Status Health Status Inform ant Anxiety(Confirmed) Active Asthma(Confirmed) Active Oxygen dependent(Confirmed) Active Hypertension(Confirmed) Active Depression, major, in remission(Confirmed) Active Obese class II(Confirmed) Active Osteoarthritis(Confirmed) Active *[facility] [phone] CARE MANAG ER TRIXIE LEÓN(Confirmed) Active PTSD (post-traumatic stress disorder)(Confirmed) 1 [...] at age: 45; entered on: 06/29/19 Sex Care Team Personnel Name: Wm CHAIDEZ, Carmen Harris Address: [address] [place] [address] [place] [address]-
--- OUTSIDE RECORDS SUMMARY | 2023-07-07 11:23 | XMS_ITS | Continuity of Care Document ---
Author Organization [facility] Julián Shahram Address [address] [place] [address]- Care Team Providers Care Clinical Scientist Name Role Phone Wm CHAIDEZ, Carmen Harris Primary Care Physician [place] [facility] [place] 11/20/19 [facility] Adult [address] [place] [address]- [facility] Allergies, Adverse Reactions, Alerts Substance Reaction Severity [...] 08/18/19 16:35:00 EDT, Route to Pharmacy Electronically, [facility] #[id number], 157.6, cm, 07/20/19 9:46:00 EDT, Height, 84.9, kg, 1... Start Date: 08/18/19 Status: Ordered anastrozole 1 mg oral tablet 1 tablet = 1 mg, By Mouth, Daily, # 90 tablet, 3 Refills, Maintenance, 07/20/19 10:52:00 EDT, Tablet, [facility] #99871, 157.6, cm, 07/20/19 9:46:00 EDT, Height, 84.9, [...] 11 Refills, Soft Stop, 08/10/19 7:50:00 EDT, [facility] #[id number], TAKE 1 TABLET BY MOUTH TWICE DAILY, 157.6, cm, 07/20/19 9:46:00 EDT, Height, 84.9, kg, 11/18/17 10:16:00 EDT,... Start Date: 08/10/19 Status: Ordered Flonase 50 mcg/inh nasal spray 1 sprays, Nares, Both, 2 times a day, # 1 each, 0 Refills, Maintenance, 03/22/15 15:02:47, [place], 1sprays Nares, Both 2 times a day,x30 days Start Date: 03/22/15 Stop Date: 04/21/15 Status: Ordered ibuprofen 600 mg oral tablet 600 mg, 1, tablet, By Mouth, 2 times a day, # 60 tablet, Refills 0, Tot. Refills 0, Maintenance, 12/13/16 12:53:25, Route to Pharmacy Electronically, [id number], [facility]383 Start Date: 12/13/16 Status: Ordered Incruse Ellipta 62.5 mcg/inh inhalation powder See Instructions, INHALE 1 PUFF BY MOUTH EVERY 24 HOURS DOSES SHOULD BE TAKEN AT LEAST 24 HOURS APART, # 30 each, 5 Refills, Soft Stop, 10/21/19 16:07:00 EDT, [facility] #[id number], 157.6, cm, 07/20/19 9:46:00 EDT, Height, 84.9, kg, 11/18/17 10:... Start Date: 10/21/19 Status: Ordered lisinopril 10 mg oral tablet 10 mg, 1, tablet, By Mouth, Daily, for 90 days, # 90 tablet, Refills 3, Tot. Refills 3, Hard Stop 01/02/20 11:48:55 EST, 01/07/19 11:48:55 EST, Route to Pharmacy Electronically, [id number], [facility] #57558 Start Date: 01/07/19 Stop Date: 01/02/20 Status: Ordered magnesium oxide 400 mg oral tablet 1 tablet = 400 mg, By Mouth, Daily, for 30 days, # 30 tablet, 6 Refills, Acute 02/15/20 10:51:00 EST, 07/20/19 10:51:00 EDT, [facility] #22903, 157.6, cm, 07/20/19 9:46:00 EDT, Height, 84.9, [...] Replace Required Details, Route to Pharmacy Electronically, [id number], [facility] Start Date: 01/07/19 Status: Ordered omeprazole 20 mg oral enteric coated capsule 1 capsule, By Mouth, 2 times a day, # 60 capsule, 2 Refills, Maintenance, 10/28/19 8:50:00 EDT, [facility] #48158, 157.6, cm, 07/20/19 9:46:00 EDT, Height, 84.9, kg, 11/18/17 10:16:00 EDT, Dry Weight Start Date: 10/28/19 Status: Ordered Portable Nebulizer and supplies Portable [...] 5 Refills, Soft Stop, 10/21/19 16:40:00 EDT, [facility] #18412, 157.6, cm, 07/20/19 9:46:00 EDT, Height, 84.9, kg, 11/18/17 10:16:00 EDT, Dry Weight Start Date: 10/21/19 Status: Ordered Tylenol 325 mg oral tablet 325 mg, 1, tablet, By Mouth, 2 times a day, # 60 tablet, Refills 0, Tot. Refills 0, Maintenance, 12/13/16 12:48:45, Route to Pharmacy Electronically, [id number], [facility] Start Date: 12/13/16 Status: Ordered Ventolin HFA 108 mcg/inh inhalation aerosol with adapter 2 puffs, Inhalation, 4 times a day, PRN for wheezing, # 8 Gm, 5 Refills, Maintenance, 06/29/19 14:41:00 EDT, Aerosol, [facility] #55684, 157.6, cm, 06/29/19 11:18:00 EDT, Height, 84.9, kg, 11/18/17 10:16:00 EDT, Dry Weight Start Date: 06/29/19 Status: Ordered Wixela Inhub 500 mcg-50 mcg inhalation powder 1 puffs, Inhalation, 2 times a day, # 60 each, 3 Refills, Maintenance, 10/28/19 8:50:00 EDT, [facility] #87014, 30, INHALE 1 PUFF BY MOUTH TWICE DAILY, 157.6, cm, 07/20/19 9:46:00 EDT, Height, 84.9, kg, 11/18/17 10:16:00 EDT, Dry Weight Start Date: 10/28/19 Status: Ordered Problem List Condition Effective Dates Status Health Status Inform ant Anxiety(Confirmed) Active Asthma(Confirmed) Active COPD(Confirmed) Active Oxygen dependent(Confirmed) Active Hypertension(Confirmed) Active Osteoarthritis(Confirmed) Active *[facility] [phone] CARE MANAG ER TRIXIE LEÓN(Confirmed) Active PTSD [...]
--- OUTSIDE RECORDS SUMMARY | 2023-07-07 11:23 | XMS_ITS | Continuity of Care Document ---
Author Organization [facility] Shahram Address [address] [place] [address]- Care Team Providers Care Navigation Teacher Name Role Phone Wm CHAIDEZ, Carmen Harris Primary Care Physician [phone] [place] [facility] [place] 03[place]18/20 [facility] Julián Adult [address] [place] [address]- Attending Physician: Admtr, Ar8 Admitting Physician: Admtr, [...] 3 Refills, Maintenance, 07/20/19 10:52:00 EDT, Tablet, [facility] #[id number], 157.6, cm, 07/20/19 9:46:00 EDT, Height, 84.9, kg, 11/18/17 10:16:00EDT, Dry Weight Start Date: 07/20/19 Stop Date: 07/14/20 Status: Ordered Calcitrate with D 315 mg-250 intl units oral tablet See Instructions, TAKE 1 TABLET BY MOUTH TWICE DAILY, # 60 tablet, 11 Refills, Soft Stop, 08/10/19 7:50:00 EDT, [facility] #[id number], TAKE 1 TABLET BY MOUTH TWICE DAILY, 157.6, cm, 07/20/19 9:46:00 EDT, Height, 84.9, kg, 11/18/17 10:16:00 EDT,... Start Date: 08/10/19 Status: Ordered CALCIUM CITRATE + D3 MAX TABLETS CALCIUM CITRATE + D3 MAX TABLETS, See Instructions, # 60 tablet, 0 Refills, Maintenance, TAKE 1 TABLET BY MOUTH TWICE DAILY, 157.6, cm, 02/17/20 7:36:00 EST, Height Start Date: 02/17/20 Status: Ordered Incruse Ellipta 62.5 mcg/inh inhalation powder See Instructions, INHALE 1 PUFF BY MOUTH EVERY 24 HOURS DOSES SHOULD BE TAKEN AT LEAST 24 HOURS APART, # 30 each, 5 Refills, Soft Stop, 10/21/19 16:07:00 EDT, [facility] #[id number], 157.6, cm, 07/20/19 9:46:00 EDT, Height, 84.9, kg, 11/18/17 10:... Start Date: 10/21/19 Status: Ordered lisinopril 10 mg oral tablet 10 mg, 1, tablet, By Mouth, Daily, for 90 days, # 90 tablet, Refills 0, Tot. Refills 0, Hard Stop 04/01/20 11:48:00 EST, 01/02/20 11:48:00 EST, Route to Pharmacy Electronically, [facility] #53484, 157.6, cm, 12/25/19 13:55:00 EST, Height Start Date: 01/02/20 Stop Date: 04/01/20 Status: Ordered magnesium oxide 400 mg oral tablet 1 tablet = 400 mg, By Mouth, Daily, for 30 days, # 30 tablet, 6 Refills, Acute 09/14/20 8:18:00 EDT, 02/17/20 8:18:00 EST, [facility] #[id number], 157.6, cm, 02/17/20 7:36:00 EST, Height Start Date: 02/17/20 Stop Date: 09/14/20 Status: Ordered melatonin 5 mg oral tablet, disintegrating 1 tablet = 5 mg, By Mouth, Daily at bedtime, PRN as needed for insomnia, for 30 days, # 30 tablet, 6 Refills, Acute 09/14/20 8:19:00 EDT, 02/17/20 8:19:00 EST, DIS Tablet, [facility] #07489, Partial fill upon patient request if the prescript... Start Date: 02/17/20 Stop Date: 09/14/20 Status: Ordered Miscellaneous Rx 1, tablet, By Mouth, 2 times a day, # 60 tablet, 0 Refills, Maintenance, 07/24/19 8:51:00 EDT, 157.6, cm, 07/20/19 9:46:00 EDT, Height, 84.9, kg, 11/18/17 10:16:00 EDT, Dry Weight Start Date: 07/24/19 Status: Ordered montelukast 10 mg oral tablet See Instructions, TAKE 1 TABLET BY MOUTH DAILY IN THE EVENING, # 90 tablet, Refills 1, Tot. Refills1, Soft Stop, 03/13/20 13:37:00 EST, Instructions Replace Required Details, Route to Pharmacy Electronically, [facility] #[id number], 157.6, cm, 0... Start Date: 03/13/20 Status: Ordered omeprazole 20 mg oral enteric coated capsule 1 capsule, By Mouth, 2 times a day, # 60 capsule, 2 Refills, Maintenance, 02/17/20 7:57:00 EST, [facility] #[id number], 157.6, cm, 02/17/20 7:36:00 EST, Height Start Date: 02/17/20 Status: Ordered Portable Nebulizer and supplies Portable [...] 5 Refills, Soft Stop, 10/21/19 16:40:00 EDT, [facility] #28385, 157.6, cm, 07/20/19 9:46:00 EDT, Height, 84.9, kg, 11/18/17 10:16:00 EDT, Dry Weight Start Date: 10/21/19 Status: Ordered Tylenol 325 mg oral tablet 325 mg, 1, tablet, By Mouth, 2 times a day, # 60 tablet, Refills 0, Tot. Refills 0, Maintenance, 12/13/16 12:48:45, Route to Pharmacy Electronically, [id number], [facility] [address] Start Date: 12/13/16 Status: Ordered Ventolin HFA 108 mcg/inh inhalation aerosol with adapter 2 puffs, Inhalation, 4 times a day, PRN for wheezing, # 8 Gm, 5 Refills, Maintenance, 06/29/19 14:41:00 EDT, Aerosol, [facility] #38639, 157.6, cm, 06/29/19 11:18:00 EDT, Height, 84.9, kg, 11/18/17 10:16:00 EDT, Dry Weight Start Date: 06/29/19 Status: Ordered Wixela Inhub 500 mcg-50 mcg inhalation powder 1 puffs, Inhalation, 2 times a day, # 60 each, 3 Refills, Maintenance, 10/28/19 8:50:00 EDT, [facility] #[id number], 30, INHALE 1 PUFF BY MOUTH TWICE DAILY, 157.6, cm, 07/20/19 9:46:00 EDT, Height, 84.9, kg, 11/18/17 10:16:00 EDT, Dry Weight Start Date: 10/28/19 Status: Ordered Wixela Inhub 500 mcg-50 mcg inhalation powder See Instructions, INHALE 1 PUFF BY MOUTH TWICE DAILY, # 60 each, 0 Refills, Maintenance, [facility] #92283, 30, INHALE 1 PUFF BY MOUTH TWICE DAILY, 157.6, cm, 02/17/20 7:36:00 EST, Height Start Date: 02/17/20 Status: Ordered Problem List Condition Effective Dates Status Health Status Inform ant Anxiety(Confirmed) Active Asthma(Confirmed) Active COPD(Confirmed) Active Oxygen dependent(Confirmed) Active Hypertension(Confirmed) Active Osteoarthritis(Confirmed) Active *[facility] [phone] CARE MANAG ER TRIXIE LEÓN(Confirmed) Active PTSD [...]
--- OUTSIDE RECORDS SUMMARY | 2023-07-07 11:23 | XMS_ITS | Continuity of Care Document ---
Author Organization [facility] Jorje Gallego Shahram Address [address] [place] [address]- Care Team Providers Care Automobile Inspector Name Role Phone Wm CHAIDEZ, Carmen Harris Primary Care Physician [place] [facility] [place](s): 10/02/21 - 11/01/21 [facility] Jorje Garsialey Adult [address] [place] [address]- Allergies, Adverse Reactions, Alerts Substance Reaction Severity Status codeine Active sulfa drugs rash Active Neosporin Active Tape tape-skin breakdown Active Immunizations Given and Recorded Vaccine Date Status Refusal Reason SARS-CoV-2 mRNA (vmjnvyl-avfp-bcyej) vax 07/14/21 Given SARS-CoV-2 (COVID-19) mRNA BNT-162b2 [...] Given 1Early/Late Reason: Accommodate D/C 2Admin Note: [facility] info given to patient Medications 02 [...] Stop 04/02/22 10:38:00 EST, 04/07/21 10:38:00 EST, [facility] #[id number], 157.6, cm, 10/14/20 13:53:00 EDT, Height Start Date: 04/07/21 Stop Date: 04/02/22 Status: Ordered Calcitrate with D 315 mg-250 intl units oral tablet See Instructions, TAKE 1 TABLET BY MOUTH TWICE DAILY, # 60 tablet, 5 Refills, Soft Stop, 07/03/21 16:41:00 EDT, [facility] #[id number], TAKE 1 TABLET BY MOUTH TWICE DAILY, [...] 5 Refills, Maintenance, 07/14/21 13:10:00 EDT, Tablet, [facility] #[id number], Partial fill upon patient request if the prescription is for a schedule II opioid drug., 1 tablet By Mouth Daily, 157.6, cm, 06... Start Date: 07/14/21 Status: Ordered hydrOXYzine pamoate 25 mg oral capsule 1 capsule, By Mouth, 2 times a day, PRN NEEDED FOR ANXIETY, for 30 days, schedule physical with Carmen Burk COUNTER WAITER, # 60 capsule, 5 Refills, Acute 12/30/21 9:11:00 EST, 07/03/21 9:11:00 EDT, [facility] #[id number], 157.6, cm, 10/14/20 13:53:00... Start Date: 07/03/21 Stop Date: 12/30/21 Status: Ordered Incruse Ellipta 62.5 mcg/inh inhalation powder 1 each, Inhalation, Every 24 hours, doses should be taken at least 24 hours apart, j45.40, # 1 each, 6 Refills, Maintenance, 09/29/21 16:43:00 EDT, Powder, [facility] #[id number], Partial fill upon patient request if the prescription is for a gloria... Start Date: 09/29/21 Status: Ordered lisinopril 10 mg oral tablet 1, tablet, By Mouth, Daily, # 90 tablet, Refills 3, Tot. Refills 3, Maintenance, 07/05/21 8:57:00 EDT, Route to Pharmacy Electronically, [facility] #[id number], 157.6, cm, 10/14/20 13:53:00 EDT,Height Start Date: 07/05/21 Status: Ordered magnesium oxide 400 mg oral tablet 1 tablet = 400 mg, By Mouth, Daily, for 30 days, # 30 tablet, 11 Refills, Acute 07/09/22 13:16:00 EDT, 07/14/21 13:16:00 EDT, [facility] #[id number], 157.6, cm, 07/14/21 12:48:00 EDT, Height Start [...] tablet, Refills 1, Route to Pharmacy Electronically, [facility] #[id number], 157.6, cm, 07/14/21 12:48:00 EDT, Height Start Date: 09/19/21 Status: Ordered omeprazole 20 mg oral enteric coated capsule 1 capsule, By Mouth, 2 times a day, # 180 capsule, 0 Refills, Maintenance, 07/03/21 16:41:00 EDT, [facility] #[id number], Please use this script, 157.6, cm, 10/14/20 [...] 45 tablet, 5 Refills, 07/05/21 8:57:00 EDT, [facility] #[id number], 157.6, cm, 10/14/20 13:53:00 EDT, Height Start Date: 07/05/21 Status: Ordered traZODone 50 mg oral tablet 50 mg, 1, tablet, By Mouth, Daily at bedtime, # 30 tablet, Refills 6, Tot. Refills 6, Maintenance, 07/14/21 13:05:00 EDT, Route to Pharmacy Electronically, [facility] #[id number], Partial fill upon patient request if the prescription is for a gloria... Start Date: 07/14/21 Stop Date: 02/09/22 Status: Ordered Tylenol 325 mg oral tablet 325 mg, 1, tablet, By Mouth, 2 times a day, # 60 tablet, Refills 0, Tot. Refills 0, Maintenance, 12/13/16 12:48:45, Route to Pharmacy Electronically, [id number], [facility] Start Date: 12/13/16 Status: Ordered Ventolin HFA 108 mcg/inh inhalation aerosol with adapter 2 puffs, Inhalation, 4 times a day, PRN for wheezing, # 8 Gm, 5 Refills, Maintenance, 05/03/21 10:58:00 EDT, Aerosol, [facility] #[id number], 157.6, cm, 10/14/20 13:53:00 EDT, Height Start Date: 05/03/21 Status: Ordered Wixela Inhub 500 mcg-50 mcg inhalation powder 1 puffs, Inhalation, 2 times a day, # 60 each, 5 Refills, [facility] #[id number], 30, INHALE 1PUFF BY MOUTH TWICE DAILY, 157.6, cm, 10/14/20 13:53:00 EDT, Height Start Date: 06/01/21 Status: Ordered Problem List Condition Effective Dates Status Health Status Inform ant Anxiety(Confirmed) Active Asthma(Confirmed) Active Oxygen dependent(Confirmed) Active Hypertension(Confirmed) Active Depression, major, in remission(Confirmed) Active Obese class II(Confirmed) Active Osteoarthritis(Confirmed) Active *[facility] [phone] CARE MANAG ER TRIXIE LEÓN(Confirmed) Active PTSD [...] Personnel Name: Wm CHAIDEZ, Carmen Harris Address: [address] [place] [address] Adult [place], [place] [address]
--- OUTSIDE RECORDS SUMMARY | 2023-07-07 11:23 | XMS_ITS | Continuity of Care Document ---
Author Organization [facility] Jorje Gallego Shahram Address [address] [place] [address]- Care Team Providers Care Splitting Machine Operator Name Role Phone Wm CHAIDEZ, Carmen Harris Primary Care Physician [place] [facility] [place]s): 12/08/21 - 01/07/22 [facility] Jorje Gallego Adult [address] [place] [address]- Allergies, Adverse Reactions, Alerts Substance Reaction Severity Status codeine Active Neosporin Active Tape tape-skin breakdown Active sulfa drugs rash Active Immunizations Given and Recorded Vaccine Date Status Refusal Reason SARS-CoV-2 mRNA (iqazovk-cqqq-knsit) vax 07/14/21 Given SARS-CoV-2 (COVID-19) mRNA BNT-162b2 [...] 5 Refills, Soft Stop, 07/03/21 16:41:00 EDT, [facility] #[id number], TAKE 1 TABLET BY MOUTH TWICE DAILY, [...] Daily, # 30 tablet, 5 Refills, Maintenance, 12/12/21 8:49:00 EDT, Tablet, [id number], Partial fill upon patient request if the prescription is for a schedule II opioid drug., 1 tablet By Mouth Daily, 157.6, cm, 11/24/21 13:... Start Date: 12/12/21 Status: Ordered hydrOXYzine pamoate 25 mg oral capsule 1 capsule, By Mouth, 2 times a day, PRN NEEDED FOR ANXIETY, for 30 days, schedule physical with Carmen Burk GATEMAN, # 60 capsule, 5 Refills, Acute 06/10/22 8:47:00 EDT, 12/12/21 8:47:00 EDT, [facility]/pharmacy #[id number], 157.6, cm, 11/24/21 13:30:00 EDT, Height Start Date: 12/12/21 Stop Date: 06/10/22 Status: Ordered Incruse Ellipta 62.5 mcg/inh inhalation powder 1 each, Inhalation, Every 24 hours, doses should be taken at least 24 hours apart, j45.40, # 1 each, 6 Refills, Maintenance, 12/12/21 8:50:00 EDT, Powder, [facility]/pharmacy #2339, Partial fill upon patient request if the prescription is for a schedule II o... Start Date: 12/12/21 Status: Ordered lisinopril 10 mg oral tablet 1, tablet, By Mouth, Daily, # 90 tablet, Refills 3, Tot. Refills 3, Maintenance, 12/12/21 8:47:00 EDT, Route to Pharmacy Electronically, [facility]/pharmacy #[id number], 157.6, cm, 11/24/21 13:30:00 EDT, Height Start Date: 12/12/21 Status: Ordered magnesium oxide 400 mg oral tablet 1 tablet = 400 mg, By Mouth, Daily, for 30 days, # 30 tablet, 11 Refills, Acute 12/07/22 8:48:00 EDT, 12/12/21 8:48:00 EDT, [facility]/pharmacy #[id number], 157.6, cm, 11/24/21 13:30:00 EDT, [...] 12/12/21 8:48:00 EDT, Route to Pharmacy Electronically, [facility]/pharmacy #[id number], 157.6, cm, 11/24/21 13:30:00 EDT, Height Start Date: 12/12/21 Status: Ordered omeprazole 20 mg oral enteric coated capsule 1 capsule, By Mouth, 2 times a day, # 180 capsule, 0 Refills, Maintenance, 12/08/21 9:23:00 EDT, [facility]/pharmacy #[id number], Please use this script, 157.6, cm, 11/24/21 13:30:00 EDT, Height Start Date: 12/08/21 Status: Ordered Portable Nebulizer and supplies Portable [...] 45 tablet, 5 Refills, 12/12/21 8:49:00 EDT, [facility]/pharmacy #2339, 157.6, cm, 11/24/21 13:30:00 EDT, Height Start Date: 12/12/21 Status: Ordered traZODone 50 mg oral tablet 50 mg, 1, tablet, By Mouth, Daily at bedtime, # 30 tablet, Refills 6, Tot. Refills 6, Maintenance, 12/12/21 8:50:00 EDT, Route to Pharmacy Electronically, [facility]/pharmacy #[id number], Partial fill upon patient request if the prescription is for a schedule II o... Start Date: 12/12/21 Stop Date: 07/10/22 Status: Ordered Tylenol 325 mg oral tablet 325 mg, 1, tablet, By Mouth, 2 times a day, # 60 tablet, Refills 0, Tot. Refills 0, Maintenance, 12/13/16 12:48:45, Route to Pharmacy Electronically, [id number], [facility] [id number] Start Date: 12/13/16 Status: Ordered Ventolin HFA 108 mcg/inh inhalation aerosol with adapter 2 puffs, Inhalation, 4 times a day, PRN for wheezing, brand name medically necessary, # 8 Gm, 5 Refills, Maintenance, 12/18/21 12:07:00 EST, Aerosol, [facility]/pharmacy #2339, 157.6, cm, 11/24/21 13:30:00 EDT, Height Start Date: 12/18/21 Status: Ordered Wixela Inhub 500 mcg-50 mcg inhalation powder 1 puffs, Inhalation, 2 times a day, # 60 each, 5 Refills, 12/12/21 8:47:00 EDT, [facility]/pharmacy #[id number],30, 1 puffs Inhalation 2 times a day, 157.6, cm, 11/24/21 13:30:00 EDT, Height Start Date: 12/12/21 Status: Ordered Problem List Condition Confirmation Course Effective Dates Status H ealth Status Informant Anxiety Confirmed Active Asthma Confirmed Active Oxygen dependent Confirmed Active Hypertension Confirmed Active Depression, major, in remission Confirmed Active Obese class II Confirmed Active Osteoarthritis Confirmed Active *[facility] [phone] FORMER HAND TRIXIE LEÓN Confirmed Active PTSD (post-traumatic stress [...] Care Team Personnel Name: Natalia Kennedy Position: [facility] Onco RN Member Role: Primary Care Nurse Name: Carmen Burk NP Position: [facility] PCO Associate Professional Member Role: PCP Address: Address: [address] [place] [id number]- Care Team Related Persons Name: STACIE HORTON Address: home [address] [place] [id number] Name: STACIE CHARLES Address: home [address] [place] [address] Name: LUCIANO GRIMES Address: home [address] [place] [address]
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
--- OUTSIDE RECORDS SUMMARY | 2023-07-07 11:23 | XMS_ITS | Continuity of Care Document ---
Author Organization [facility] Address [address] [place] [address]- Care Team Providers Care Credit Representative Name Role Phone Wm CHAIDEZ, Carmen Harris Primary Care Physician [phone] Encounter [facility] [place] Date(s): 09/07/21 - 10/07/21 [facility] [address] [place] [id number] Allergies, Adverse Reactions, Alerts Substance Reaction Severity Status codeine Active sulfa drugs rash Active Neosporin Active Tape tape-skin breakdown Active Immunizations Given and Recorded Vaccine Date Status Refusal Reason SARS-CoV-2 mRNA (hjfqsen-hmaf-zexzj) vax 07/14/21 Given SARS-CoV-2 (COVID-19) mRNA BNT-162b2 [...] Stop 04/02/22 10:38:00 EST, 04/07/21 10:38:00 EST, [facility] #[id number], 157.6, cm, 10/14/20 13:53:00 EDT, Height Start Date: 04/07/21 Stop Date: 04/02/22 Status: Ordered Calcitrate with D 315 mg-250 intl units oral tablet See Instructions, TAKE 1 TABLET BY MOUTH TWICE DAILY, # 60 tablet, 5 Refills, Soft Stop, 07/03/21 16:41:00 EDT, [facility] #[id number], TAKE 1 TABLET BY MOUTH TWICE DAILY, [...] 5 Refills, Maintenance, 07/14/21 13:10:00 EDT, Tablet, [facility] #[id number], Partial fill upon patient request if the prescription is for a schedule II opioid drug., 1 tablet By Mouth Daily, 157.6, cm, 06... Start Date: 07/14/21 Status: Ordered hydrOXYzine pamoate 25 mg oral capsule 1 capsule, By Mouth, 2 times a day, PRN NEEDED FOR ANXIETY, for 30 days, schedule physical with Carmen Burk ADMINISTRATIVE SUPPORT SPECIALIST, # 60 capsule, 5 Refills, Acute 12/30/21 9:11:00 EST, 07/03/21 9:11:00 EDT, [facility] #[id number], 157.6, cm, 10/14/20 13:53:00... Start Date: 07/03/21 Stop Date: 12/30/21 Status: Ordered Incruse Ellipta 62.5 mcg/inh inhalation powder 1 each, Inhalation, Every 24 hours, doses should be taken at least 24 hours apart, j45.40, # 1 each, 6 Refills, Maintenance, 09/29/21 16:43:00 EDT, Powder, [facility] #[id number], Partial fill upon patient request if the prescription is for a gloria... Start Date: 09/29/21 Status: Ordered lisinopril 10 mg oral tablet 1, tablet, By Mouth, Daily, # 90 tablet, Refills 3, Tot. Refills 3, Maintenance, 07/05/21 8:57:00 EDT, Route to Pharmacy Electronically, [facility] #[id number], 157.6, cm, 10/14/20 13:53:00 EDT,Height Start Date: 07/05/21 Status: Ordered magnesium oxide 400 mg oral tablet 1 tablet = 400 mg, By Mouth, Daily, for 30 days, # 30 tablet, 11 Refills, Acute 07/09/22 13:16:00 EDT, 07/14/21 13:16:00 EDT, [facility] #[id number], 157.6, cm, 07/14/21 12:48:00 EDT, Height Start [...] tablet, Refills 1, Route to Pharmacy Electronically, [facility] #10701, 157.6, cm, 07/14/21 12:48:00 EDT, Height Start Date: 09/19/21 Status: Ordered omeprazole 20 mg oral enteric coated capsule 1 capsule, By Mouth, 2 times a day, # 180 capsule, 0 Refills, Maintenance, 07/03/21 16:41:00 EDT, [facility] #85307, Please use this script, 157.6, cm, 10/14/20 [...] 45 tablet, 5 Refills, 07/05/21 8:57:00 EDT, [facility] #[id number], 157.6, cm, 10/14/20 13:53:00 EDT, Height Start Date: 07/05/21 Status: Ordered traZODone 50 mg oral tablet 50 mg, 1, tablet, By Mouth, Daily at bedtime, # 30 tablet, Refills 6, Tot. Refills 6, Maintenance, 07/14/21 13:05:00 EDT, Route to Pharmacy Electronically, [facility] #35909, Partial fill upon patient request if the prescription is for a gloria... Start Date: 07/14/21 Stop Date: 02/09/22 Status: Ordered Tylenol 325 mg oral tablet 325 mg, 1, tablet, By Mouth, 2 times a day, # 60 tablet, Refills 0, Tot. Refills 0, Maintenance, 12/13/16 12:48:45, Route to Pharmacy Electronically, [id number], [facility] [id number] Start Date: 12/13/16 Status: Ordered Ventolin HFA 108 mcg/inh inhalation aerosol with adapter 2 puffs, Inhalation, 4 times a day, PRN for wheezing, # 8 Gm, 5 Refills, Maintenance, 05/03/21 10:58:00 EDT, Aerosol, [facility] #[id number], 157.6, cm, 10/14/20 13:53:00 EDT, Height Start Date: 05/03/21 Status: Ordered Wixela Inhub 500 mcg-50 mcg inhalation powder 1 puffs, Inhalation, 2 times a day, # 60 each, 5 Refills, [facility] #[id number], 30, INHALE 1PUFF BY MOUTH TWICE DAILY, 157.6, cm, 10/14/20 13:53:00 EDT, Height Start Date: 06/01/21 Status: Ordered Problem List Condition Effective Dates Status Health Status Inform ant Anxiety(Confirmed) Active Asthma(Confirmed) Active Oxygen dependent(Confirmed) Active Hypertension(Confirmed) Active Depression, major, in remission(Confirmed) Active Obese class II(Confirmed) Active Osteoarthritis(Confirmed) Active *[facility] [phone] CARE MANAG ER TRIXIE LEÓN(Confirmed) Active PTSD [...] Personnel Name: Wm CHAIDEZ, Carmen Harris Address: [address] [place] [address] [place] [address]
--- OUTSIDE RECORDS SUMMARY | 2023-07-07 11:23 | XMS_ITS | Continuity of Care Document ---
Author Organization [facility] Jorje Gallego Shahram Address [address] [place] [address]- Care Team Providers Care Retail Stocker Name Role Phone Wm CHAIDEZ, Carmen Harris Primary Care Physician Encounter [facility] Date(s): 01/02/21 - 02/01/21 [facility] Jorje Gallego Adult [address] [place] [address]- Allergies, Adverse Reactions, Alerts Substance Reaction Severity Status codeine Active sulfa drugs rash Active Neosporin Active Tape tape-skin breakdown Active Immunizations Given and Recorded Vaccine Date Status Refusal Reason SARS-CoV-2 (COVID-19) mRNA BNT-162b2 vac 04/07/20 Recorded [...] tablet 1 tablet, By Mouth, Daily, # 90 tablet, 0 Refills, [facility] #[id number], 157.6, cm, 217:36:00 EST, Height Start Date: 10/14/20 Status: Ordered Calcitrate with D 315 mg-250 intl units oral tablet See Instructions, TAKE 1 TABLET BY MOUTH TWICE DAILY, # 60 tablet, 5 Refills, Soft Stop, 12/13/20 11:12:00 EDT, [facility] #[id number], TAKE 1 TABLET BY MOUTH TWICE DAILY, 157.6, cm, 10/14/20 13:53:00 EDT, Height Start Date: 12/13/20 Status: Ordered CALCIUM CITRATE + D3 MAX TABLETS CALCIUM CITRATE + D3 MAX TABLETS, See Instructions, # 60 tablet, 0 Refills, Maintenance, TAKE 1 TABLET BY MOUTH TWICE DAILY, 157.6, cm, 02/17/20 7:36:00 EST, Height Start Date: 02/17/20 Status: Ordered Centrum Silver Therapeutic Multiple Vitamins with Minerals oral tablet 1 tablet, By Mouth, Daily, # 30 tablet, 5 Refills, Maintenance, 12/22/20 13:54:00 EST, Tablet, [facility] #[id number], Partial fill upon patient request if the prescription is for a schedule II opioid drug., 1 tablet By Mouth Daily, 157.6, cm, 09... Start Date: 12/22/20 Status: Ordered fluticasone 50 mcg/inh nasal spray See Instructions, SHAKE LIQUID AND USE 1 SPRAY IN EACH NOSTRIL DAILY, # 16 Gm, 0 Refills, [facility] #[id number], 60, SHAKE LIQUID AND USE 1 SPRAY IN EACH NOSTRIL DAILY, 157.6, cm, 10/14/20 13:53:00 EDT, Height Start Date: 12/13/20 Status: Ordered hydrOXYzine pamoate 25 mg oral capsule 1 capsule, By Mouth, 2 times a day, PRN NEEDED FOR ANXIETY, for 30 days, # 60 capsule, 5 Refills, Acute 04/12/21 13:40:00 EST, 10/14/20 13:40:00 EDT, [facility] #[id number], 157.6, cm, 10/14/20 13:12:00 EDT, Height Start Date: 10/14/20 Stop Date: 04/12/21 Status: Ordered lisinopril 10 mg oral tablet 1, tablet, By Mouth, Daily, # 90 tablet, Refills 3, Tot. Refills 3, Maintenance, 12/05/20 10:00:00 EDT, Route to Pharmacy Electronically, [facility] #[id number], 157.6, cm, 10/14/20 13:53:00 EDT, Height Start Date: 12/05/20 Status: Ordered melatonin 10 mg oral tablet, disintegrating 1 tablet = 10 mg, By Mouth, Daily at bedtime, for 30 days, # 30 tablet, 1 Refills, Acute 02/11/21 11:12:00 EST, 12/13/20 11:12:00 EDT, [facility] #[id number], Partial fill upon patient request if the prescription is for a schedule II opioid drug.... Start Date: 12/13/20 Stop Date: 02/11/21 Status: Ordered Miscellaneous Rx 1, tablet, By Mouth, 2 times a day, # 60 tablet, 0 Refills, Maintenance, 07/24/19 8:51:00 EDT, 157.6, cm, 07/20/19 9:46:00 EDT, Height, 84.9, kg, 11/18/17 10:16:00 EDT, Dry Weight Start Date: 07/24/19 Status: Ordered montelukast 10 mg oral tablet See Instructions, TAKE 1 TABLET BY MOUTH DAILY IN THE EVENING, # 90 tablet, Refills 0, Tot. Refills0, Soft Stop, 12/13/20 11:11:00 EDT, Instructions Replace Required Details, Route to Pharmacy Electronically, [facility] #[id number], 157.6, cm, 0... Start Date: 12/13/20 Status: Ordered omeprazole 20 mg oral enteric coated capsule 1 capsule, By Mouth, 2 times a day, # 60 capsule, 2 Refills, Maintenance, 10/14/20 13:40:00 EDT, [facility] #[id number], 157.6, cm, 10/14/20 13:12:00 EDT, Height Start Date: 10/14/20 Status: Ordered Portable Nebulizer and supplies Portable [...] Mouth, Daily, # 45 tablet, 5 Refills, [facility] #[id number], 157.6, cm, 10/14/20 13:53:00 EDT, Height Start Date: 11/21/20 Status: Ordered Tylenol 325 mg oral tablet 325 mg, 1, tablet, By Mouth, 2 times a day, # 60 tablet, Refills 0, Tot. Refills 0, Maintenance, 12/13/16 12:48:45, Route to Pharmacy Electronically, [id number], [facility] [address] Start Date: 12/13/16 Status: Ordered Ventolin HFA 108 mcg/inh inhalation aerosol with adapter 2 puffs, Inhalation, 4 times a day, PRN for wheezing, # 8 Gm, 5 Refills, Maintenance, 11/30/20 12:14:00 EDT, Aerosol, [facility] #[id number], 157.6, cm, 10/14/20 13:53:00 EDT, Height Start Date: 11/30/20 Status: Ordered Wixela Inhub 500 mcg-50 mcg inhalation powder 1 puffs, Inhalation, 2 times a day, # 60 each, 5 Refills, [facility] #[id number], 30, INHALE 1PUFF BY MOUTH TWICE DAILY, 157.6, cm, 10/14/20 13:53:00 EDT, Height Start Date: 11/28/20 Status: Ordered Problem List Condition Effective Dates Status Health Status Inform ant Anxiety(Confirmed) Active Asthma(Confirmed) Active COPD(Confirmed) Active Oxygen dependent(Confirmed) Active Hypertension(Confirmed) Active Depression, major, in remission(Confirmed) Active Osteoarthritis(Confirmed) Active *[facility] [phone] 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
--- OUTSIDE RECORDS SUMMARY | 2023-07-07 11:23 | XMS_ITS | Continuity of Care Document ---
Author Organization [facility] Julián Shahram lt Address [address] [place] [address]- Care Team Providers Care Social Media Intern Name Role Phone Wm CHAIDEZ, Carmen Harris Primary Care Physician [phone] Encounter [facility] [place] [place] Date(s): 07/03/21 - 08/02/21 [facility] Adult [address] [place] [address]- Allergies, Adverse Reactions, Alerts Substance Reaction Severity Status codeine Active sulfa drugs rash Active Neosporin Active Tape tape-skin breakdown Active Immunizations Given and Recorded Vaccine Date Status Refusal Reason SARS-CoV-2 mRNA (iibmqjp-xuux-xsdir) vax 07/14/21 Given SARS-CoV-2 (COVID-19) mRNA BNT-162b2 [...] Stop 04/02/22 10:38:00 EST, 04/07/21 10:38:00 EST, [facility] #[id number], 157.6, cm, 10/14/20 13:53:00 EDT, Height Start Date: 04/07/21 Stop Date: 04/02/22 Status: Ordered Calcitrate with D 315 mg-250 intl units oral tablet See Instructions, TAKE 1 TABLET BY MOUTH TWICE DAILY, # 60 tablet, 5 Refills, Soft Stop, 07/03/21 16:41:00 EDT, [facility] #[id number], TAKE 1 TABLET BY MOUTH TWICE DAILY, [...] 5 Refills, Maintenance, 07/14/21 13:10:00 EDT, Tablet, [facility] #[id number], Partial fill upon patient request if the prescription is for a schedule II opioid drug., 1 tablet By Mouth Daily, 157.6, cm, 06... Start Date: 07/14/21 Status: Ordered hydrOXYzine pamoate 25 mg oral capsule 1 capsule, By Mouth, 2 times a day, PRN NEEDED FOR ANXIETY, for 30 days, schedule physical with Carmen Burk MEMBERSHIP COORDINATOR, # 60 capsule, 5 Refills, Acute 12/30/21 9:11:00 EST, 07/03/21 9:11:00 EDT, [facility] #[id number], 157.6, cm, 10/14/20 13:53:00... Start Date: 07/03/21 Stop Date: 12/30/21 Status: Ordered lisinopril 10 mg oral tablet 1, tablet, By Mouth, Daily, # 90 tablet, Refills 3, Tot. Refills 3, Maintenance, 07/05/21 8:57:00 EDT, Route to Pharmacy Electronically, [facility] #[id number], 157.6, cm, 10/14/20 13:53:00 EDT,Height Start Date: 07/05/21 Status: Ordered magnesium oxide 400 mg oral tablet 1 tablet = 400 mg, By Mouth, Daily, for 30 days, # 30 tablet, 11 Refills, Acute 07/09/22 13:16:00 EDT, 07/14/21 13:16:00 EDT, [facility] #[id number], 157.6, cm, 07/14/21 12:48:00 EDT, Height Start [...] tablet, Refills 1, Route to Pharmacy Electronically, [facility] #[id number], 157.6, cm, 10/14/20 13:53:00 EDT, Height Start Date: 03/19/21 Status: Ordered omeprazole 20 mg oral enteric coated capsule 1 capsule, By Mouth, 2 times a day, # 180 capsule, 0 Refills, Maintenance, 07/03/21 16:41:00 EDT, [facility] #[id number], Please use this script, 157.6, cm, 10/14/20 [...] 45 tablet, 5 Refills, 07/05/21 8:57:00 EDT, [facility] #[id number], 157.6, cm, 10/14/20 13:53:00 EDT, Height Start Date: 07/05/21 Status: Ordered traZODone 50 mg oral tablet 50 mg, 1, tablet, By Mouth, Daily at bedtime, # 30 tablet, Refills 6, Tot. Refills 6, Maintenance, 07/14/21 13:05:00 EDT, Route to Pharmacy Electronically, [facility] #[id number], Partial fill upon patient request if the prescription is for a gloria... Start Date: 07/14/21 Stop Date: 02/09/22 Status: Ordered Tylenol 325 mg oral tablet 325 mg, 1, tablet, By Mouth, 2 times a day, # 60 tablet, Refills 0, Tot. Refills 0, Maintenance, 12/13/16 12:48:45, Route to Pharmacy Electronically, [id number], [facility] [address] Start Date: 12/13/16 Status: Ordered Ventolin HFA 108 mcg/inh inhalation aerosol with adapter 2 puffs, Inhalation, 4 times a day, PRN for wheezing, # 8 Gm, 5 Refills, Maintenance, 05/03/21 10:58:00 EDT, Aerosol, [facility] #[id number], 157.6, cm, 10/14/20 13:53:00 EDT, Height Start Date: 05/03/21 Status: Ordered Wixela Inhub 500 mcg-50 mcg inhalation powder 1 puffs, Inhalation, 2 times a day, # 60 each, 5 Refills, [facility] #[id number], 30, INHALE 1PUFF BY MOUTH TWICE DAILY, 157.6, cm, 10/14/20 13:53:00 EDT, Height Start Date: 06/01/21 Status: Ordered Problem List Condition Effective Dates Status Health Status Inform ant Anxiety(Confirmed) Active Asthma(Confirmed) Active Oxygen dependent(Confirmed) Active Hypertension(Confirmed) Active Depression, major, in remission(Confirmed) Active Obese class II(Confirmed) Active Osteoarthritis(Confirmed) Active *[facility] [phone] 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
--- OUTSIDE RECORDS SUMMARY | 2023-07-07 11:23 | XMS_ITS | Continuity of Care Document ---
Author Organization [facility] Julián Shahram Address [address] [place] [address]- Care Team Providers Care Special Education Assistant Name Role Phone Wm CHAIDEZ, Carmen Harris Primary Care Physician En[place] [facility] [place] Date(s): 12/23/19 - 01/27/20 [facility] Adult [address] [place] [address]- Attending Physician: Not on Staff, Attending MD Allergies, Adverse Reactions, Alerts Substance Reaction [...] 08/18/19 16:35:00 EDT, Route to Pharmacy Electronically, [facility] #[id number], 157.6, cm, 07/20/19 9:46:00 EDT, Height, 84.9, kg, 1... Start Date: 08/18/19 Status: Ordered anastrozole 1 mg oral tablet 1 tablet = 1 mg, By Mouth, Daily, # 90 tablet, 3 Refills, Maintenance, 07/20/19 10:52:00 EDT, Tablet, [facility] #[id number], 157.6, cm, 07/20/19 9:46:00 EDT, Height, 84.9, [...] Refills, Soft Stop, 12/25/19 15:15:00 EST, Tablet, [facility] #[id number], Partial fill upon patient request, 157.6,cm, 12/25/19 13:55:00 EST, Height Start Date: 12/25/19 Status: Ordered Calcitrate with D 315 mg-250 intl units oral tablet See Instructions, TAKE 1 TABLET BY MOUTH TWICE DAILY, # 60 tablet, 11 Refills, Soft Stop, 08/10/19 7:50:00 EDT, [facility] #[id number], TAKE 1 TABLET BY MOUTH TWICE DAILY, 157.6, cm, 07/20/19 9:46:00 EDT, Height, 84.9, kg, 11/18/17 10:16:00 EDT,... Start Date: 08/10/19 Status: Ordered Flonase 50 mcg/inh nasal spray 1 sprays, Nares, Both, 2 times a day, # 1 each, 0 Refills, Maintenance, 03/22/15 15:02:47, [place], 1sprays Nares, Both 2 times a day,x30 days Start Date: 03/22/15 Stop Date: 04/21/15 Status: Ordered ibuprofen 600 mg oral tablet 600 mg, 1, tablet, By Mouth, 2 times a day, # 60 tablet, Refills 0, Tot. Refills 0, Maintenance, 12/13/16 12:53:25, Route to Pharmacy Electronically, [id number], [facility] [address] Start Date: 12/13/16 Status: Ordered Incruse Ellipta 62.5 mcg/inh inhalation powder See Instructions, INHALE 1 PUFF BY MOUTH EVERY 24 HOURS DOSES SHOULD BE TAKEN AT LEAST 24 HOURS APART, # 30 each, 5 Refills, Soft Stop, 10/21/19 16:07:00 EDT, [facility] #[id number], 157.6, cm, 07/20/19 9:46:00 EDT, Height, 84.9, kg, 11/18/17 10:... Start Date: 10/21/19 Status: Ordered lisinopril 10 mg oral tablet 10 mg, 1, tablet, By Mouth, Daily, for 90 days, # 90 tablet, Refills 0, Tot. Refills 0, Hard Stop 04/01/20 11:48:00 EST, 01/02/20 11:48:00 EST, Route to Pharmacy Electronically, [facility] #[id number], 157.6, cm, 12/25/19 13:55:00 EST, Height Start Date: 01/02/20 Stop Date: 04/01/20 Status: Ordered magnesium oxide 400 mg oral tablet 1 tablet = 400 mg, By Mouth, Daily, for 30 days, # 30 tablet, 6 Refills, Acute 02/15/20 10:51:00 EST, 07/20/19 10:51:00 EDT, [facility] #[id number], 157.6, cm, 07/20/19 9:46:00 EDT, Height, 84.9, [...] Replace Required Details, Route to Pharmacy Electronically, [id number], [facility]... Start Date: 01/07/19 Status: Ordered omeprazole 20 mg oral enteric coated capsule 1 capsule, By Mouth, 2 times a day, Call the office to shcedule your next appointment, # 60 capsule, 0 Refills, Maintenance, 01/20/20 8:04:00 EST, [facility] #[id number], 157.6, cm, 12/25/19 13:55:00 EST, Height Start [...] 5 Refills, Soft Stop, 10/21/19 16:40:00 EDT, [facility] #67014, 157.6, cm, 07/20/19 9:46:00 EDT, Height, 84.9, kg, 11/18/17 10:16:00 EDT, Dry Weight Start Date: 10/21/19 Status: Ordered Tylenol 325 mg oral tablet 325 mg, 1, tablet, By Mouth, 2 times a day, # 60 tablet, Refills 0, Tot. Refills 0, Maintenance, 12/13/16 12:48:45, Route to Pharmacy Electronically, [id number], [facility] [address] Start Date: 12/13/16 Status: Ordered Ventolin HFA 108 mcg/inh inhalation aerosol with adapter 2 puffs, Inhalation, 4 times a day, PRN for wheezing, # 8 Gm, 5 Refills, Maintenance, 06/29/19 14:41:00 EDT, Aerosol, [facility] #07145, 157.6, cm, 06/29/19 11:18:00 EDT, Height, 84.9, kg, 11/18/17 10:16:00 EDT, Dry Weight Start Date: 06/29/19 Status: Ordered Wixela Inhub 500 mcg-50 mcg inhalation powder 1 puffs, Inhalation, 2 times a day, # 60 each, 3 Refills, Maintenance, 10/28/19 8:50:00 EDT, [facility] #[id number], 30, INHALE 1 PUFF BY MOUTH TWICE DAILY, 157.6, cm, 07/20/19 9:46:00 EDT, Height, 84.9, kg, 11/18/17 10:16:00 EDT, Dry Weight Start Date: 10/28/19 Status: Ordered Problem List Condition Effective Dates Status Health Status Inform ant Anxiety(Confirmed) Active Asthma(Confirmed) Active COPD(Confirmed) Active Oxygen dependent(Confirmed) Active Hypertension(Confirmed) Active Osteoarthritis(Confirmed) Active *[facility] [phone] 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
--- OUTSIDE RECORDS SUMMARY | 2023-07-07 11:23 | XMS_ITS | Continuity of Care Document ---
Author Organization [facility] Jorje Gallego Shahram Address [address] [place] [address]- Care Team Providers Care Teaching Specialists Name Role Phone Wm CHAIDEZ, Carmen Harris Primary Care Physician Encounter [facility] [place] Date(s): 05/26/21 - 06/25/21 [facility] Jorje Gallego Adult [address] [place] [address]- Allergies, Adverse Reactions, Alerts Substance Reaction Severity [...] wheezing, # 60 each, 4 Refills, Maintenance, 03/21/18 11:34:24, Solution Start Date: 05/01/17 Status: Ordered anastrozole 1 mg oral tablet 1 tablet, By Mouth, Daily, for 90 days, # 90 tablet, 3 Refills, Physician Stop 04/02/22 10:38:00 EST, 04/07/21 10:38:00 EST, [facility] #[id number], 157.6, cm, 10/14/20 13:53:00 EDT, Height Start Date: 04/07/21 Stop Date: 04/02/22 Status: Ordered Calcitrate with D 315 mg-250 intl units oral tablet See Instructions, TAKE 1 TABLET BY MOUTH TWICE DAILY, # 60 tablet, 5 Refills, Soft Stop, 12/13/20 11:12:00 EDT, [facility] #[id number], TAKE 1 TABLET BY MOUTH TWICE DAILY, [...] 5 Refills, Maintenance, 12/22/20 13:54:00 EST, Tablet, [facility] #[id number], Partial fill upon patient request if the prescription is for a schedule II opioid drug., 1 tablet By Mouth Daily, 157.6, cm, 09... Start Date: 12/22/20 Status: Ordered fluticasone 50 mcg/inh nasal spray See Instructions, SHAKE LIQUID AND USE 1 SPRAY IN EACH NOSTRIL DAILY, # 16 Gm, 2 Refills, [facility] #[id number], 60, SHAKE LIQUID AND USE 1 SPRAY IN EACH NOSTRIL DAILY, 157.6, cm, 10/14/20 13:53:00 EDT, Height Start Date: 02/17/21 Status: Ordered lisinopril 10 mg oral tablet 1, tablet, By Mouth, Daily, # 90 tablet, Refills 3, Tot. Refills 3, Maintenance, 12/05/20 10:00:00 EDT, Route to Pharmacy Electronically, [facility] #[id number], 157.6, cm, 10/14/20 13:53:00 EDT, Height Start Date: 12/05/20 Status: Ordered Miscellaneous Rx 1, tablet, By Mouth, 2 times a day, # 60 tablet, 0 Refills, Maintenance, 07/24/19 8:51:00 EDT, 157.6, cm, 07/20/19 9:46:00 EDT, Height, 84.9, kg, 11/18/17 10:16:00 EDT, Dry Weight Start Date: 07/24/19 Status: Ordered montelukast 10 mg oral tablet 1, tablet, By Mouth, Daily in PM, # 90 tablet, Refills 1, Route to Pharmacy Electronically, [facility] #[id number], 157.6, cm, 10/14/20 13:53:00 EDT, Height Start Date: 03/19/21 Status: Ordered omeprazole 20 mg oral enteric coated capsule 1 capsule, By Mouth, 2 times a day, # 180 capsule, 1 Refills, Maintenance, 03/06/21 10:04:00 EST, [facility] #[id number], Please use this script, 157.6, cm, 10/14/20 13:53:00 EDT, Height Start Date: 03/06/21 Status: Ordered Portable Nebulizer and supplies Portable [...] Mouth, Daily, # 45 tablet, 5 Refills, [facility] #[id number], 157.6, cm, 10/14/20 13:53:00 EDT, Height Start Date: 11/21/20 Status: Ordered Tylenol 325 mg oral tablet 325 mg, 1, tablet, By Mouth, 2 times a day, # 60 tablet, Refills 0, Tot. Refills 0, Maintenance, 12/13/16 12:48:45, Route to Pharmacy Electronically, [id number], [facility] [address] Start Date: 12/13/16 Status: Ordered Ventolin HFA 108 mcg/inh inhalation aerosol with adapter 2 puffs, Inhalation, 4 times a day, PRN for wheezing, # 8 Gm, 5 Refills, Maintenance, 05/03/21 10:58:00 EDT, Aerosol, [facility] #[id number], 157.6, cm, 10/14/20 13:53:00 EDT, Height Start Date: 05/03/21 Status: Ordered Wixela Inhub 500 mcg-50 mcg inhalation powder 1 puffs, Inhalation, 2 times a day, # 60 each, 5 Refills, [facility] #09245, 30, INHALE 1PUFF BY MOUTH TWICE DAILY, 157.6, cm, 10/14/20 13:53:00 EDT, Height Start Date: 06/01/21 Status: Ordered Problem List Condition Effective Dates Status Health Status Inform ant Anxiety(Confirmed) Active Asthma(Confirmed) Active COPD(Confirmed) Active Oxygen dependent(Confirmed) Active Hypertension(Confirmed) Active Depression, major, in remission(Confirmed) Active Osteoarthritis(Confirmed) Active *[facility] [phone] 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
--- OUTSIDE RECORDS SUMMARY | 2023-07-07 11:23 | XMS_ITS | Continuity of Care Document ---
Author Organization [facility] Address [address] [place] [address]- Care Team Providers Care Paralegal Name Role Phone Wm CHAIDEZ, Carmen Harris Primary Care Physician [phone] Encounter [facility] Date(s): 11/02/21 - 12/02/21 [facility] [address] [place] [id number] Allergies, Adverse Reactions, Alerts Substance Reaction Severity Status codeine Active sulfa drugs rash Active Neosporin Active Tape tape-skin breakdown Active Immunizations Given and Recorded Vaccine Date Status Refusal Reason SARS-CoV-2 mRNA (mgwudes-ccee-yygdg) vax 07/14/21 Given SARS-CoV-2 (COVID-19) mRNA BNT-162b2 [...] Stop 04/02/22 10:38:00 EST, 04/07/21 10:38:00 EST, [facility] #[id number], 157.6, cm, 10/14/20 13:53:00 EDT, Height Start Date: 04/07/21 Stop Date: 04/02/22 Status: Ordered Calcitrate with D 315 mg-250 intl units oral tablet See Instructions, TAKE 1 TABLET BY MOUTH TWICE DAILY, # 60 tablet, 5 Refills, Soft Stop, 07/03/21 16:41:00 EDT, [facility] #24740, TAKE 1 TABLET BY MOUTH TWICE DAILY, [...] 5 Refills, Maintenance, 07/14/21 13:10:00 EDT, Tablet, [facility] #[id number], Partial fill upon patient request if the prescription is for a schedule II opioid drug., 1 tablet By Mouth Daily, 157.6, cm, 06... Start Date: 07/14/21 Status: Ordered hydrOXYzine pamoate 25 mg oral capsule 1 capsule, By Mouth, 2 times a day, PRN NEEDED FOR ANXIETY, for 30 days, schedule physical with Carmen Burk ELEMENTARY CLASSROOM TEACHER, # 60 capsule, 5 Refills, Acute 12/30/21 9:11:00 EST, 07/03/21 9:11:00 EDT, [facility] #15263, 157.6, cm, 10/14/20 13:53:00... Start Date: 07/03/21 Stop Date: 12/30/21 Status: Ordered Incruse Ellipta 62.5 mcg/inh inhalation powder 1 each, Inhalation, Every 24 hours, doses should be taken at least 24 hours apart, [id number], # 1 each, 6 Refills, Maintenance, 09/29/21 16:43:00 EDT, Powder, [facility] #[id number], Partial fill upon patient request if the prescription is for a gloria... Start Date: 09/29/21 Status: Ordered lisinopril 10 mg oral tablet 1, tablet, By Mouth, Daily, # 90 tablet, Refills 3, Tot. Refills 3, Maintenance, 07/05/21 8:57:00 EDT, Route to Pharmacy Electronically, [facility] #[id number], 157.6, cm, 10/14/20 13:53:00 EDT,Height Start Date: 07/05/21 Status: Ordered magnesium oxide 400 mg oral tablet 1 tablet = 400 mg, By Mouth, Daily, for 30 days, # 30 tablet, 11 Refills, Acute 07/09/22 13:16:00 EDT, 07/14/21 13:16:00 EDT, [facility] #[id number], 157.6, cm, 07/14/21 12:48:00 EDT, Height Start [...] tablet, Refills 1, Route to Pharmacy Electronically, [facility] #[id number], 157.6, cm, 07/14/21 12:48:00 EDT, Height Start Date: 09/19/21 Status: Ordered ofloxacin 0.3% ophthalmic solution 2 drops, Eyes, Both, 4 times a day, for 7 days, # 10 mL, 0 Refills, Acute 12/05/21 16:33:00 EDT, 11/28/21 16:33:00 EDT, Solution, [facility] #69110, Partial fill upon patient request if theprescription is for a schedule II opioid drug., 2 d... Start Date: 11/28/21 Stop Date: 12/05/21 Status: Ordered omeprazole 20 mg oral enteric coated capsule 1 capsule, By Mouth, 2 times a day, # 180 capsule, 0 Refills, Maintenance, 07/03/21 16:41:00 EDT, [facility] #[id number], Please use this script, 157.6, cm, 10/14/20 [...] 45 tablet, 5 Refills, 07/05/21 8:57:00 EDT, [facility] #46736, 157.6, cm, 10/14/20 13:53:00 EDT, Height Start Date: 07/05/21 Status: Ordered traZODone 50 mg oral tablet 50 mg, 1, tablet, By Mouth, Daily at bedtime, # 30 tablet, Refills 6, Tot. Refills 6, Maintenance, 07/14/21 13:05:00 EDT, Route to Pharmacy Electronically, [facility] #69292, Partial fill upon patient request if the prescription is for a gloria... Start Date: 07/14/21 Stop Date: 02/09/22 Status: Ordered Tylenol 325 mg oral tablet 325 mg, 1, tablet, By Mouth, 2 times a day, # 60 tablet, Refills 0, Tot. Refills 0, Maintenance, 12/13/16 12:48:45, Route to Pharmacy Electronically, [id number], [facility] [address] Start Date: 12/13/16 Status: Ordered Ventolin HFA 108 mcg/inh inhalation aerosol with adapter 2 puffs, Inhalation, 4 times a day, PRN for wheezing, # 8 Gm, 5 Refills, Maintenance, 05/03/21 10:58:00 EDT, Aerosol, [facility] #93008, 157.6, cm, 10/14/20 13:53:00 EDT, Height Start Date: 05/03/21 Status: Ordered Wixela Inhub 500 mcg-50 mcg inhalation powder 1 puffs, Inhalation, 2 times a day, # 60 each, 5 Refills, [facility] #48893, 30, INHALE 1PUFF BY MOUTH TWICE DAILY, 157.6, cm, 10/14/20 13:53:00 EDT, Height Start Date: 06/01/21 Status: Ordered Problem List Condition Confirmation Course Effective Dates Status H ealth Status Informant Anxiety Confirmed Active Asthma Confirmed Active Oxygen dependent Confirmed Active Hypertension Confirmed Active Depression, major, in remission Confirmed Active Obese class II Confirmed Active Osteoarthritis Confirmed Active *[facility] [phone] 

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
--- OUTSIDE RECORDS SUMMARY | 2023-07-07 11:24 | XMS_ITS | Continuity of Care Document ---
Author Organization [facility] Address [address] [place] [id number]- Care Team Providers Care Regional Service Manager Name Role Phone Wm CHAIDEZ, Carmen Harris Primary Care Physician Encounter [facility] Date(s): 03/11/23 - 04/10/23 [facility] [address] [place] [id number] Allergies, Adverse Reactions, Alerts Substance Reaction Severity Status codeine Active Neosporin Active Tape tape-skin breakdown Active sulfa drugs rash Active Immunizations Given and Recorded Vaccine Date Status Refusal Reason SARS-CoV-2 mRNA (yypevfb-lrmh-okoso) vax 07/14/21 Given SARS-CoV-2 (COVID-19) mRNA BNT-162b2 [...] 5 Refills, Maintenance, 01/04/23 13:28:00 EST, Solution, [facility], Partial fill upon patient request if the prescription is for a schedule II opioid drug., 157.6,... Start Date: 01/04/23 Status: Ordered albuterol 0.083% inhalation solution 3 mL = 2.5 mg, Inhalation, Every 6 hours, PRN for wheezing, # 60 each, 4 Refills, Maintenance, 12/12/21 8:44:00 EDT, Solution, [facility]/pharmacy #[id number], 157.6, cm, 11/24/21 13:30:00 EDT, Height Start Date: 12/12/21 Status: Ordered azithromycin 500 mg oral tablet 1 tablet = 500 mg, By Mouth, Every Saturday, Saturday and Saturday, for 30 days, j44.9, # 13 tablet, 6Refills, Acute 08/06/23 13:25:00 EDT, 01/08/23 13:25:00 EST, Tablet, [facility], Partial fill upon patient request if the prescription... Start Date: 01/08/23 Stop Date: 08/06/23 Status: Ordered azithromycin 500 mg oral tablet 1 tablet = 500 mg, By Mouth, Every Saturday, Saturday and Saturday, for 180 days, # 78 tablet, 1 Refills, Acute 11/19/23 10:09:00 EDT, 11/24/22 10:09:00 EDT, Tablet, [facility]/pharmacy #[id number], Partial fill upon patient request if the prescription is for a sched... Start Date: 11/24/22 Stop Date: 11/19/23 Status: Ordered Calcitrate with D 315 mg-250 intl units oral tablet See Instructions, TAKE 1 TABLET BY MOUTH TWICE DAILY, # 60 tablet, 5 Refills, Soft Stop, 07/03/21 16:41:00 EDT, [facility] #[id number], TAKE 1 TABLET BY MOUTH TWICE DAILY, 157.6, cm, 10/14/20 13:53:00 EDT, Height Start Date: 07/03/21 Status: Ordered calcium (as citrate)-vitamin D 315 mg-250 intl units oral tablet 1 tablet, By Mouth, 2 times a day, # 60 tablet, 6 Refills, Maintenance, 01/07/23 6:56:00 EST, Tablet, [facility], Partial fill upon patient request if [...] 5 Refills, Maintenance, 05/08/22 8:43:00 EDT, Tablet, [facility]/pharmacy #[id number], Partial fill upon patient request if the [...] capsule, 1 Refills, Maintenance, 01/07/23 6:54:00 EST, [facility], 157.6, cm, 11/26/22 9:24:00 EDT, Height Start Date: 01/07/23 Status: Ordered losartan 50 mg oral tablet 50 mg, 1, tablet, By Mouth, Daily, # 30 tablet, Refills 11, Tot. Refills 11, Maintenance, 01/07/23 6:54:00 EST, Route to Pharmacy Electronically, [facility], Partial fill upon patient request if [...] 01/07/23 6:53:00 EST, Route to Pharmacy Electronically, [facility], 157.6, cm, 11/26/22 9:24:00EDT, Height Start Date: 01/07/23 Status: Ordered O2 evaluation O2 evaluation, See Instructions, # 1 each, Refills 11, Tot. Refills 11, Maintenance, updated O2 Rx for this patient for the following: Pt requires 2LPM at rest and 3 LPM with activity/portability. [facility] J44.9 J45.909, . Start Date: 12/14/22 Status: Ordered O2 rx O2 rx, See Instructions, # 1 each, Refills 11, Tot. Refills 11, Maintenance, 2LPM at rest 3 LPM with activity [employer] Dx J44.9, 03/11/23 20:05:00 EST, Supply Start Date: 03/11/23 Status: Ordered omeprazole 20 mg oral enteric coated capsule 1 capsule, By Mouth, 2 times a day, # 180 capsule, 0 Refills, Maintenance, 01/07/23 6:53:00 EST, [facility], 157.6, cm, 11/26/22 9:24:00 EDT, Height Start Date: 01/07/23 Status: Ordered Portable Nebulizer and supplies Portable Nebulizer and supplies, See Instructions, # 1 each, Refills 11, Tot. Refills 11, Maintenance, Portable Nebulizer A7003 Neb Disp Set A7014 Neb non- Disp Filter A7005 Neb Non-Disp set A7015 Aerosol Mask A7013 [facility] Disp Filter Dx COPD J44.9 Le... Start [...] tablet, 1 Refills, Maintenance, 01/07/23 6:53:00 EST, [facility], 157.6, cm, 11/26/22 9:24:00 EDT, Height Start Date: 01/07/23 Status: Ordered Trelegy Ellipta 200 mcg-62.5 mcg-25 mcg/inh inhalation powder 1 puffs, Inhalation, Daily, at the same time every day, j44.9, # 3 each, 3 Refills, Maintenance, 04/08/23 15:20:00 EST, Powder, [facility], Partial fill upon patient request if the prescription is for a schedule II opioid drug., 1 puf... Start Date: 04/08/23 Status: Ordered Tylenol 325 mg oral tablet 325 mg, 1, tablet, By Mouth, 2 times a day, # 60 tablet, Refills 0, Tot. Refills 0, Maintenance, 12/13/16 12:48:45, Route to Pharmacy Electronically, [id number], [facility] [id number] Start Date: 12/13/16 Status: Ordered Ventolin HFA 108 mcg/inh inhalation aerosol with adapter 2 puffs, Inhalation, 4 times a day, PRN for wheezing, brand name medically necessary, # 18 Gm, 5 Refills, Maintenance, 01/04/23 13:28:00 EST, Aerosol, [facility], 157.6, cm, :24:00 EDT, Height Start Date: 01/04/23 Status: Ordered Problem List Condition Confirmation Course Effective Dates Status H ealth Status Informant Anxiety Confirmed Active Asthma Confirmed Active Oxygen dependent Confirmed Active Hypertension Confirmed Active Depression, major, in remission Confirmed Active Osteoarthritis Confirmed Active *[facility] [phone] 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
--- OUTSIDE RECORDS SUMMARY | 2023-07-07 11:24 | XMS_ITS | Continuity of Care Document ---
Author Organization [facility] Address [address] [place] [phone]- Care Team Providers Care Chairman President And Chief Executive Officer Name Role Phone Wm CHAIDEZ, Carmen Harris Primary Care Physician Encounter [facility] Date(s): 08/05/21 - 12/03/21 [facility] [address] [place] [id number] Attending Physician: Bella Shelton MD Admitting Physician: Bella Shelton MD Referring Physician: Wm CHAIDEZ, Carmen Harris Allergies, Adverse Reactions, Alerts Substance Reaction Severity Status codeine Active sulfa drugs rash Active Neosporin Active Tape tape-skin breakdown Active Immunizations Given and Recorded Vaccine Date Status Refusal Reason SARS-CoV-2 mRNA (zmpgwoz-qoap-xulew) vax 07/14/21 Given SARS-CoV-2 (COVID-19) mRNA BNT-162b2 [...] Given 1Early/Late Reason: Accommodate D/C 2Admin Note: [facility] info given to patient Medications 02 Rx [...] Stop 04/02/22 10:38:00 EST, 04/07/21 10:38:00 EST, [facility] #[id number], 157.6, cm, 10/14/20 13:53:00 EDT, Height Start Date: 04/07/21 Stop Date: 04/02/22 Status: Ordered Calcitrate with D 315 mg-250 intl units oral tablet See Instructions, TAKE 1 TABLET BY MOUTH TWICE DAILY, # 60 tablet, 5 Refills, Soft Stop, 07/03/21 16:41:00 EDT, [facility] #[id number], TAKE 1 TABLET BY MOUTH TWICE DAILY, [...] 5 Refills, Maintenance, 07/14/21 13:10:00 EDT, Tablet, [facility] #[id number], Partial fill upon patient request if the [...] Acute 12/30/21 9:11:00 EST, 07/03/21 9:11:00 EDT, [facility] #[id number], 157.6, cm, 10/14/20 13:53:00... Start Date: 07/03/21 Stop Date: 12/30/21 Status: Ordered Incruse Ellipta 62.5 mcg/inh inhalation powder 1 each, Inhalation, Every 24 hours, doses should be taken at least 24 hours apart, j45.40, # 1 each, 6 Refills, Maintenance, 09/29/21 16:43:00 EDT, Powder, [facility] #[id number], Partial fill upon patient request if the prescription is for a gloria... Start Date: 09/29/21 Status: Ordered lisinopril 10 mg oral tablet 1, tablet, By Mouth, Daily, # 90 tablet, Refills 3, Tot. Refills 3, Maintenance, 07/05/21 8:57:00 EDT, Route to Pharmacy Electronically, [facility] #[id number], 157.6, cm, 10/14/20 13:53:00 EDT,Height Start Date: 07/05/21 Status: Ordered magnesium oxide 400 mg oral tablet 1 tablet = 400 mg, By Mouth, Daily, for 30 days, # 30 tablet, 11 Refills, Acute 07/09/22 13:16:00 EDT, 07/14/21 13:16:00 EDT, [facility] #89137, 157.6, cm, 07/14/21 12:48:00 EDT, Height Start [...] tablet, Refills 1, Route to Pharmacy Electronically, [facility] #07886, 157.6, cm, 07/14/21 12:48:00 EDT, Height Start Date: 09/19/21 Status: Ordered ofloxacin 0.3% ophthalmic solution 2 drops, Eyes, Both, 4 times a day, for 7 days, # 10 mL, 0 Refills, Acute 12/05/21 16:33:00 EDT, 11/28/21 16:33:00 EDT, Solution, [facility] #[id number], Partial fill upon patient request if theprescription is for a schedule II opioid drug., 2 d... Start Date: 11/28/21 Stop Date: 12/05/21 Status: Ordered omeprazole 20 mg oral enteric coated capsule 1 capsule, By Mouth, 2 times a day, # 180 capsule, 0 Refills, Maintenance, 07/03/21 16:41:00 EDT, [facility] #[id number], Please use this script, 157.6, cm, 10/14/20 [...] 45 tablet, 5 Refills, 07/05/21 8:57:00 EDT, [facility] #[id number], 157.6, cm, 10/14/20 13:53:00 EDT, Height Start Date: 07/05/21 Status: Ordered traZODone 50 mg oral tablet 50 mg, 1, tablet, By Mouth, Daily at bedtime, # 30 tablet, Refills 6, Tot. Refills 6, Maintenance, 07/14/21 13:05:00 EDT, Route to Pharmacy Electronically, [facility] #[id number], Partial fill upon patient request if the prescription is for a gloria... Start Date: 07/14/21 Stop Date: 02/09/22 Status: Ordered Tylenol 325 mg oral tablet 325 mg, 1, tablet, By Mouth, 2 times a day, # 60 tablet, Refills 0, Tot. Refills 0, Maintenance, 12/13/16 12:48:45, Route to Pharmacy Electronically, [id number], [facility] [address] Start Date: 12/13/16 Status: Ordered Ventolin HFA 108 mcg/inh inhalation aerosol with adapter 2 puffs, Inhalation, 4 times a day, PRN for wheezing, # 8 Gm, 5 Refills, Maintenance, 05/03/21 10:58:00 EDT, Aerosol, [facility] #84654, 157.6, cm, 10/14/20 13:53:00 EDT, Height Start Date: 05/03/21 Status: Ordered Wixela Inhub 500 mcg-50 mcg inhalation powder 1 puffs, Inhalation, 2 times a day, # 60 each, 5 Refills, [facility] #[id number], 30, INHALE 1PUFF BY MOUTH TWICE DAILY, 157.6, cm, 10/14/20 13:53:00 EDT, Height Start Date: 06/01/21 Status: Ordered Problem List Condition Confirmation Course Effective Dates Status H ealth Status Informant Anxiety Confirmed Active Asthma Confirmed Active Oxygen dependent Confirmed Active Hypertension Confirmed Active Depression, major, in remission Confirmed Active Obese class II Confirmed Active Osteoarthritis Confirmed Active *[facility] [phone] 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
--- OUTSIDE RECORDS SUMMARY | 2023-07-07 11:24 | XMS_ITS | Continuity of Care Document ---
Author Organization [facility] Jorje Gallego Shahram Address [address] [place] [address]- Care Team Providers Care Webmaster Name Role Phone Wm CHAIDEZ, Carmen Harris Primary Care Physician [phone] [place] [facility] [place] - 06/13/22 [facility] Jorje Gallego Adult [address] [place] [address]- Attending Physician: Not on Staff, Attending MD Allergies, Adverse Reactions, Alerts Substance Reaction Severity Status codeine Active Neosporin Active Tape tape-skin breakdown Active sulfa drugs rash Active Immunizations Given and Recorded Vaccine Date Status Refusal Reason SARS-CoV-2 mRNA ([id number]-poroo) vax 07/14/21 Given SARS-CoV-2 (COVID-19) mRNA BNT-162b2 [...] Maintenance, 12/12/21 8:44:00 EDT, Solution, [facility]/pharmacy #[id number], 157.6, cm, 11/24/21 13:30:00 EDT, Height [...] 5 Refills, Soft Stop, 07/03/21 16:41:00 EDT, [id number], TAKE 1 TABLET BY MOUTH TWICE DAILY, [...] opioid drug. Start Date: 05/08/22 Status: Ordered Incruse Ellipta 62.5 mcg/inh inhalation powder 1 each, Inhalation, Every 24 hours, doses should be taken at least 24 hours apart, [id number], # 1 each, 6 Refills, Maintenance, 12/12/21 8:50:00 EDT, Powder, [facility]/pharmacy #2339, Partial fill upon patient request if the prescription is for a schedule II o... Start Date: 12/12/21 Status: Ordered losartan 50 mg oral tablet 50 mg, 1, tablet, By Mouth, Daily, # 30 tablet, Refills 11, Tot. Refills 11, Maintenance, 05/23/22 11:59:00 EDT, Route to Pharmacy Electronically, [facility]/pharmacy #2339, Partial fill upon patient request if the prescription is for a schedule II opioid dr... Start Date: 05/23/22 Status: Ordered magnesium oxide 400 mg oral tablet 1 tablet = 400 mg, By Mouth, Daily, for 30 days, # 30 tablet, 11 Refills, Acute 12/07/22 8:48:00 EDT, 12/12/21 8:48:00 EDT, [facility]/pharmacy #2339, 157.6, cm, 11/24/21 13:30:00 EDT, Height [...] 12/12/21 8:48:00 EDT, [id number] 157.6, cm, 11/24/21 13:30:00 EDT, Height Start Date: 12/12/21 Status: Ordered omeprazole 20 mg oral enteric coated capsule 1 capsule, By Mouth, 2 times a day, # 180 capsule, 0 Refills, Maintenance, 06/06/22 8:30:00 EDT, [id number] 157.6, cm, 05/23/22 11:27:00 EDT, Height [...] tablet, 5 Refills, 12/12/21 8:49:00 EDT, [facility]/pharmacy #2339, 157.6, cm, 11/24/21 13:30:00 EDT, Height Start Date: 12/12/21 Status: Ordered Tylenol 325 mg oral tablet 325 mg, 1, tablet, By Mouth, 2 times a day, # 60 tablet, Refills 0, Tot. Refills 0, Maintenance, 12/13/16 12:48:45, Route to Pharmacy Electronically, [id number], [facility] [address] Start Date: 12/13/16 Status: Ordered Ventolin HFA 108 mcg/inh inhalation aerosol with adapter 2 puffs, Inhalation, 4 times a day, PRN for wheezing, brand name medically necessary, # 8 Gm, 5 Refills, Maintenance, 12/18/21 12:07:00 EST, Aerosol, [facility]/pharmacy #2339, 157.6, cm, 11/24/21 13:30:00 EDT, Height [...] Confirmed Active Osteoarthritis Confirmed Active *[facility] [phone] DIRECTOR NEWS TRIXIE LEÓN Confirmed Active PTSD (post-traumatic stress [...] Care Team Personnel Name: Natalia Kennedy Position: [facility] Onco RN Member Role: Primary Care Nurse Name: Carmen Burk NP Position: [facility] PCO Associate Professional Member Role: PCP Address: Address: [address] [place] [id number] Care Team Related Persons Name: STACIE HORTON Address: home [address] [place] [address] Name: STACIE CHARLES Address: home [address] [place] [address] Name: LUCIANO GRIMES Address: home [address] [place] [id number]
--- OUTSIDE RECORDS SUMMARY | 2023-07-07 11:24 | XMS_ITS | Continuity of Care Document ---
Author Organization [facility] Shahram lt Address [address] [place] [address]- Care Team Providers Care Applications Systems Analyst Name Role Phone Wm CHAIDEZ, Carmen Harris Primary Care Physician [phone] [id number] Date(s): 04/11/19 - 08/19/19 [facility] Adult [address] [place] [address]- [facility] Attending Physician: Wm CHAIDEZ, Carmen Harris Referring Physician: Eduardo OLMSTEAD, Nick Alves Allergies, Adverse Reactions, Alerts Substance Reaction Severity [...] 05/05/19 16:28:00 EDT, Route to Pharmacy Electronically, [id number], [facility] #[id number], 157.6, cm, 01/07/19 11:31:00 EST, Carlos... Start [...] 08/18/19 16:35:00 EDT, Route to Pharmacy Electronically, [facility] #[id number], 157.6, cm, 07/20/19 9:46:00 EDT, Height, 84.9, kg, 1... Start Date: 08/18/19 Status: Ordered anastrozole 1 mg oral tablet 1 tablet = 1 mg, By Mouth, Daily, # 90 tablet, 3 Refills, Maintenance, 07/20/19 10:52:00 EDT, Tablet, [facility] #[id number], 157.6, cm, 07/20/19 9:46:00 EDT, Height, 84.9, [...] 11 Refills, Soft Stop, 08/10/19 7:50:00 EDT, [facility] #55008, TAKE 1 TABLET BY MOUTH TWICE DAILY, 157.6, cm, 07/20/19 9:46:00 EDT, Height, 84.9, kg, 11/18/17 10:16:00 EDT,... Start Date: 08/10/19 Status: Ordered Flonase 50 mcg/inh nasal spray 1 sprays, Nares, Both, 2 times a day, # 1 each, 0 Refills, Maintenance, 02/09/16 15:02:47, [place], 1sprays Nares, Both 2 times a day,x30 days Start Date: 03/22/15 Stop Date: 04/21/15 Status: Ordered ibuprofen 600 mg oral tablet 600 mg, 1, tablet, By Mouth, 2 times a day, # 60 tablet, Refills 0, Tot. Refills 0, Maintenance, 12/13/16 12:53:25, Route to Pharmacy Electronically, [id number], [facility] [id number] Start Date: 12/13/16 Status: Ordered Incruse Ellipta 62.5 mcg/inh inhalation powder See Instructions, INHALE 1 PUFF BY MOUTH EVERY 24 HOURS DOSES SHOULD BE TAKEN AT LEAST 24 HOURS APART, # 30 each, 5 Refills, Soft Stop, 05/05/19 16:28:00 EDT, [facility] #[id number], 157.6, cm, 01/07/19 11:31:00 EST, Height, 84.9, kg, 11/18/17 10... Start Date: 05/05/19 Status: Ordered lisinopril 10 mg oral tablet 10 mg, 1, tablet, By Mouth, Daily, for 90 days, # 90 tablet, Refills 3, Tot. Refills 3, Hard Stop 01/02/20 11:48:55 EST, 01/07/19 11:48:55 EST, Route to Pharmacy Electronically, [id number], [facility] #[id number] Start Date: 01/07/19 Stop Date: 01/02/20 Status: Ordered magnesium oxide 400 mg oral tablet 1 tablet = 400 mg, By Mouth, Daily, for 30 days, # 30 tablet, 6 Refills, Acute 02/15/20 10:51:00 EST, 07/20/19 10:51:00 EDT, [facility] #47085, 157.6, cm, 07/20/19 9:46:00 EDT, Height, 84.9, [...] Replace Required Details, Route to Pharmacy Electronically, [id number], [facility] Start Date: 01/07/19 Status: Ordered omeprazole 20 mg oral enteric coated capsule 1 capsule = 20 mg, By Mouth, 2 times a day, # 60 capsule, 3 Refills, Maintenance, 06/30/19 12:23:00EDT, EC Capsule, [facility] #[id number], 157.6, cm, 06/29/19 11:18:00 EDT, Height, 84.9, [...] 3 Refills, Soft Stop, 06/29/19 13:26:00 EDT, [facility] #13702, 157.6, cm, 06/29/19 11:18:00 EDT, Height, 84.9, kg, 11/18/17 10:16:00 EDT, Dry Weight Start Date: 06/29/19 Status: Ordered Tylenol 325 mg oral tablet 325 mg, 1, tablet, By Mouth, 2 times a day, # 60 tablet, Refills 0, Tot. Refills 0, Maintenance, 12/13/16 12:48:45, Route to Pharmacy Electronically, [id number], [facility] [address] Start Date: 12/13/16 Status: Ordered Ventolin HFA 108 mcg/inh inhalation aerosol with adapter 2 puffs, Inhalation, 4 times a day, PRN for wheezing, # 8 Gm, 5 Refills, Maintenance, 06/29/19 14:41:00 EDT, Aerosol, [facility] #87560, 157.6, cm, 06/29/19 11:18:00 EDT, Height, 84.9, [...] dependent(Confirmed) Active Hypertension(Confirmed) Active Osteoarthritis(Confirmed) Active *[facility] [phone] 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
--- OUTSIDE RECORDS SUMMARY | 2023-07-07 11:24 | XMS_ITS | Continuity of Care Document ---
Author Organization [facility] Julián Shahram Address [address] [place] [address]- Care Team Providers Care Server Engineer Name Role Phone Wm CHAIDEZ, Carmen Harris Primary Care Physician [phone] [place] [facility] [place] 11[place]26/19 [facility] Adult [address] [place] [address]- [facility] Allergies, Adverse Reactions, Alerts Substance Reaction Severity [...] 08/18/19 16:35:00 EDT, Route to Pharmacy Electronically, [facility] #[id number], 157.6, cm, 07/20/19 9:46:00 EDT, Height, 84.9, kg, 1... Start Date: 08/18/19 Status: Ordered anastrozole 1 mg oral tablet 1 tablet = 1 mg, By Mouth, Daily, # 90 tablet, 3 Refills, Maintenance, 07/20/19 10:52:00 EDT, Tablet, [facility] #24091, 157.6, cm, 07/20/19 9:46:00 EDT, Height, 84.9, [...] 11 Refills, Soft Stop, 08/10/19 7:50:00 EDT, [facility] #43684, TAKE 1 TABLET BY MOUTH TWICE DAILY, 157.6, cm, 07/20/19 9:46:00 EDT, Height, 84.9, kg, 11/18/17 10:16:00 EDT,... Start Date: 08/10/19 Status: Ordered Flonase 50 mcg/inh nasal spray 1 sprays, Nares, Both, 2 times a day, # 1 each, 0 Refills, Maintenance, 03/22/15 15:02:47, [place], 1sprays Nares, Both 2 times a day,x30 days Start Date: 03/22/15 Stop Date: 04/21/15 Status: Ordered ibuprofen 600 mg oral tablet 600 mg, 1, tablet, By Mouth, 2 times a day, # 60 tablet, Refills 0, Tot. Refills 0, Maintenance, 12/13/16 12:53:25, Route to Pharmacy Electronically, [id number], [facility] [address] Start Date: 12/13/16 Status: Ordered Incruse Ellipta 62.5 mcg/inh inhalation powder See Instructions, INHALE 1 PUFF BY MOUTH EVERY 24 HOURS DOSES SHOULD BE TAKEN AT LEAST 24 HOURS APART, # 30 each, 5 Refills, Soft Stop, 10/21/19 16:07:00 EDT, [facility] #46408, 157.6, cm, 07/20/19 9:46:00 EDT, Height, 84.9, kg, 11/18/17 10:... Start Date: 10/21/19 Status: Ordered lisinopril 10 mg oral tablet 10 mg, 1, tablet, By Mouth, Daily, for 90 days, # 90 tablet, Refills 3, Tot. Refills 3, Hard Stop 01/02/20 11:48:55 EST, 01/07/19 11:48:55 EST, Route to Pharmacy Electronically, [id number], [facility] #[id number] Start Date: 01/07/19 Stop Date: 01/02/20 Status: Ordered magnesium oxide 400 mg oral tablet 1 tablet = 400 mg, By Mouth, Daily, for 30 days, # 30 tablet, 6 Refills, Acute 02/15/20 10:51:00 EST, 07/20/19 10:51:00 EDT, [facility] #18433, 157.6, cm, 07/20/19 9:46:00 EDT, Height, 84.9, [...] Replace Required Details, Route to Pharmacy Electronically, [id number], [facility] Start Date: 01/07/19 Status: Ordered omeprazole 20 mg oral enteric coated capsule 1 capsule, By Mouth, 2 times a day, # 60 capsule, 2 Refills, Maintenance, 10/28/19 8:50:00 EDT, [facility] #31269, 157.6, cm, 07/20/19 9:46:00 EDT, Height, 84.9, [...] 5 Refills, Soft Stop, 10/21/19 16:40:00 EDT, [facility] #35487, 157.6, cm, 07/20/19 9:46:00 EDT, Height, 84.9, kg, 11/18/17 10:16:00 EDT, Dry Weight Start Date: 10/21/19 Status: Ordered Tylenol 325 mg oral tablet 325 mg, 1, tablet, By Mouth, 2 times a day, # 60 tablet, Refills 0, Tot. Refills 0, Maintenance, 12/13/16 12:48:45, Route to Pharmacy Electronically, [id number], [facility] [address] Start Date: 12/13/16 Status: Ordered Ventolin HFA 108 mcg/inh inhalation aerosol with adapter 2 puffs, Inhalation, 4 times a day, PRN for wheezing, # 8 Gm, 5 Refills, Maintenance, 06/29/19 14:41:00 EDT, Aerosol, [facility] #67421, 157.6, cm, 06/29/19 11:18:00 EDT, Height, 84.9, kg, 11/18/17 10:16:00 EDT, Dry Weight Start Date: 06/29/19 Status: Ordered Wixela Inhub 500 mcg-50 mcg inhalation powder 1 puffs, Inhalation, 2 times a day, # 60 each, 3 Refills, Maintenance, 10/28/19 8:50:00 EDT, [facility] #12260, 30, INHALE 1 PUFF BY MOUTH TWICE DAILY, 157.6, cm, 07/20/19 9:46:00 EDT, Height, 84.9, kg, 11/18/17 10:16:00 EDT, Dry Weight Start Date: 10/28/19 Status: Ordered Problem List Condition Effective Dates Status Health Status Inform ant Anxiety(Confirmed) Active Asthma(Confirmed) Active COPD(Confirmed) Active Oxygen dependent(Confirmed) Active Hypertension(Confirmed) Active Osteoarthritis(Confirmed) Active *[facility] [phone] CARE MANAG ER TRIXIE LEÓN(Confirmed) Active PTSD [...]
--- OUTSIDE RECORDS SUMMARY | 2023-07-07 11:24 | XMS_ITS | Continuity of Care Document ---
Author Organization [facility] Address [address] [place] [address]- Care Team Providers Care Surgical Training Specialist Name Role Phone Wm CHAIDEZ, Carmen Harris Primary Care Physician En[place] [facility] [place] Date(s): 12/22/20 - 03/20/[address] [address] Attending Physician: Carmen Burk NP Admitting Physician: Carmen Burk NP Referring Physician: Wm CHAIDEZ, Carmen Harris Allergies, [...] Mouth, Daily, # 90 tablet, 0 Refills, [facility] #62993, 157.6, cm, 217:36:00 EST, Height Start Date: 10/14/20 Status: Ordered Calcitrate with D 315 mg-250 intl units oral tablet See Instructions, TAKE 1 TABLET BY MOUTH TWICE DAILY, # 60 tablet, 5 Refills, Soft Stop, 12/13/20 11:12:00 EDT, [facility] #67908, TAKE 1 TABLET BY MOUTH TWICE DAILY, [...] 5 Refills, Maintenance, 12/22/20 13:54:00 EST, Tablet, [facility] #09751, Partial fill upon patient request if the prescription is for a schedule II opioid drug., 1 tablet By Mouth Daily, 157.6, cm, 09... Start Date: 12/22/20 Status: Ordered fluticasone 50 mcg/inh nasal spray See Instructions, SHAKE LIQUID AND USE 1 SPRAY IN EACH NOSTRIL DAILY, # 16 Gm, 2 Refills, [facility] #40188, 60, SHAKE LIQUID AND USE 1 SPRAY IN EACH NOSTRIL DAILY, 157.6, cm, 10/14/20 13:53:00 EDT, Height Start Date: 02/17/21 Status: Ordered hydrOXYzine pamoate 25 mg oral capsule 1 capsule, By Mouth, 2 times a day, PRN NEEDED FOR ANXIETY, for 30 days, # 60 capsule, 5 Refills, Acute 04/12/21 13:40:00 EST, 10/14/20 13:40:00 EDT, [facility]19398, 157.6, cm, 10/14/20 13:12:00 EDT, Height Start Date: 10/14/20 Stop Date: 04/12/21 Status: Ordered lisinopril 10 mg oral tablet 1, tablet, By Mouth, Daily, # 90 tablet, Refills 3, Tot. Refills 3, Maintenance, 12/05/20 10:00:00 EDT, Route to Pharmacy Electronically, [facility], 157.6, cm, 10/14/20 13:53:00 EDT, Height Start [...] tablet, Refills 1, [facility] to [facility] Electronically, [facility], 157.6, cm, 10/14/20 13:53:00 EDT, Height Start Date: 03/19/21 Status: Ordered omeprazole 20 mg oral enteric coated capsule 1 capsule, By Mouth, 2 times a day, # 180 capsule, 1 Refills, Maintenance, 03/06/21 10:04:00 EST, [facility] #95959, Please use this script, 157.6, cm, 10/14/20 [...] Mouth, Daily, # 45 tablet, 5 Refills, [facility] #12515, 157.6, cm, 10/14/20 13:53:00 EDT, Height Start Date: 11/21/20 Status: Ordered Tylenol 325 mg oral tablet 325 mg, 1, tablet, By Mouth, 2 times a day, # 60 tablet, Refills 0, Tot. Refills 0, Maintenance, 12/13/16 12:48:45, Route to Pharmacy Electronically, [id number], [facility] [address] Start Date: 12/13/16 Status: Ordered Ventolin HFA 108 mcg/inh inhalation aerosol with adapter 2 puffs, Inhalation, 4 times a day, PRN for wheezing, # 8 Gm, 5 Refills, Maintenance, 11/30/20 12:14:00 EDT, Aerosol, [facility] #84613, 157.6, cm, 10/14/20 13:53:00 EDT, Height Start Date: 11/30/20 Status: Ordered Wixela Inhub 500 mcg-50 mcg inhalation powder 1 puffs, Inhalation, 2 times a day, # 60 each, 5 Refills, [facility] #30998, 30, INHALE 1PUFF BY MOUTH TWICE DAILY, 157.6, cm, 10/14/20 13:53:00 EDT, Height Start Date: 11/28/20 Status: Ordered Problem List Condition Effective Dates Status Health Status Inform ant Anxiety(Confirmed) Active Asthma(Confirmed) Active COPD(Confirmed) Active Oxygen dependent(Confirmed) Active Hypertension(Confirmed) Active Depression, major, in remission(Confirmed) Active Osteoarthritis(Confirmed) Active *[facility] [phone] 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
--- OUTSIDE RECORDS SUMMARY | 2023-07-07 11:24 | XMS_ITS | Continuity of Care Document ---
Author Organization [facility] Julián Shahram Address [address] [place] [address]- Care Team Providers Care Supervisor Pyrotechnic Loading Name Role Phone Wm CHAIDEZ, Carmen Harris Primary Care Physician [phone] [place] [facility] [place] [place]/21[place]20 - 06/20/20 [facility] Julián Adult [address] [place] [address]- Allergies, Adverse Reactions, Alerts Substance Reaction Severity [...] 3 Refills, Maintenance, 07/20/19 10:52:00 EDT, Tablet, [facility] #[id number], 157.6, cm, 07/20/19 9:46:00 EDT, Height, 84.9, kg, 11/18/17 10:16:00EDT, Dry Weight Start Date: 07/20/19 Stop Date: 07/14/20 Status: Ordered Calcitrate with D 315 mg-250 intl units oral tablet See Instructions, TAKE 1 TABLET BY MOUTH TWICE DAILY, # 60 tablet, 11 Refills, Soft Stop, 08/10/19 7:50:00 EDT, [facility] #25470, TAKE 1 TABLET BY MOUTH TWICE DAILY, 157.6, cm, 07/20/19 9:46:00 EDT, Height, 84.9, kg, 11/18/17 10:16:00 EDT,... Start Date: 08/10/19 Status: Ordered CALCIUM CITRATE + D3 MAX TABLETS CALCIUM CITRATE + D3 MAX TABLETS, See Instructions, # 60 tablet, 0 Refills, Maintenance, TAKE 1 TABLET BY MOUTH TWICE DAILY, 157.6, cm, 02/17/20 7:36:00 EST, Height Start Date: 02/17/20 Status: Ordered hydrOXYzine pamoate 25 mg oral capsule 1 capsule, By Mouth, 4 times a day, PRN NEEDED FOR ANXIETY, for 30 days, # 40 capsule, 2 Refills, Acute 08/21/20 11:45:00 EDT, 05/23/20 11:45:00 EDT, [facility] #24162, 157.6, cm, 02/17/20 7:36:00 EST, Height Start Date: 05/23/20 Stop Date: 08/21/20 Status: Ordered Incruse Ellipta 62.5 mcg/inh inhalation powder See Instructions, INHALE 1 PUFF BY MOUTH EVERY 24 HOURS DOSES SHOULD BE TAKEN AT LEAST 24 HOURS APART, # 30 each, 5 Refills, Soft Stop, 04/17/20 11:28:00 EST, [facility] #96322, 157.6, cm, 02/17/20 7:36:00 EST, Height Start Date: 04/17/20 Status: Ordered lisinopril 10 mg oral tablet 1, tablet, By Mouth, Daily, # 90 tablet, Refills 0, Tot. Refills 0, Maintenance, 03/25/20 12:22:00 EST, Route to Pharmacy Electronically, [facility] #24657, 157.6, cm, 02/17/20 7:36:00 EST,Height Start Date: 03/25/20 Status: Ordered magnesium oxide 400 mg oral tablet 1 tablet = 400 mg, By Mouth, Daily, for 30 days, # 30 tablet, 6 Refills, Acute 09/14/20 8:18:00 EDT, 02/17/20 8:18:00 EST, [facility] #47864, 157.6, cm, 02/17/20 7:36:00 EST, Height Start Date: 02/17/20 Stop Date: 09/14/20 Status: Ordered melatonin 5 mg oral tablet, disintegrating 1 tablet = 5 mg, By Mouth, Daily at bedtime, PRN as needed for insomnia, for 30 days, # 30 tablet, 6 Refills, Acute 09/14/20 8:19:00 EDT, 02/17/20 8:19:00 EST, DIS Tablet, [facility] #47890, Partial fill upon patient request if the [...] Replace Required Details, Route to Pharmacy Electronically, [facility] #00394, 157.6, cm, 0... Start Date: 03/13/20 Status: Ordered omeprazole 20 mg oral enteric coated capsule 1 capsule, By Mouth, 2 times a day, # 60 capsule, 2 Refills, Maintenance, 05/20/20 9:55:00 EDT, [facility] #90351, 157.6, cm, 02/17/20 7:36:00 EST, Height Start Date: 05/20/20 Status: Ordered Portable Nebulizer and supplies Portable [...] # 45 tablet, 2 Refills, Soft Stop, 04/17/20 11:26:00 EST, [facility] #99032, 157.6, cm, 02/17/20 7:36:00 EST, Height Start Date: 04/17/20 Status: Ordered Tylenol 325 mg oral tablet 325 mg, 1, tablet, By Mouth, 2 times a day, # 60 tablet, Refills 0, Tot. Refills 0, Maintenance, 12/13/16 12:48:45, Route to Pharmacy Electronically, [id number], [facility] [address] Start Date: 12/13/16 Status: Ordered Ventolin HFA 108 mcg/inh inhalation aerosol with adapter 2 puffs, Inhalation, 4 times a day, PRN for wheezing, # 8 Gm, 5 Refills, Maintenance, 06/29/19 14:41:00 EDT, Aerosol, [facility] #43285, 157.6, cm, 06/29/19 11:18:00 EDT, Height, 84.9, kg, 11/18/17 10:16:00 EDT, Dry Weight Start Date: 06/29/19 Status: Ordered Wixela Inhub 500 mcg-50 mcg inhalation powder 1 puffs, Inhalation, 2 times a day, # 60 each, 5 Refills, Maintenance, 05/28/20 9:07:00 EDT, [facility] #74996, 30, 1 puffs Inhalation 2 times a day, 157.6, cm, 02/17/20 7:36:00 EST, Height Start Date: 05/28/20 Status: Ordered Problem List Condition Effective Dates Status Health Status Inform ant Anxiety(Confirmed) Active Asthma(Confirmed) Active COPD(Confirmed) Active Oxygen dependent(Confirmed) Active Hypertension(Confirmed) Active Osteoarthritis(Confirmed) Active *[facility] [phone] 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
--- OUTSIDE RECORDS SUMMARY | 2023-07-07 11:24 | XMS_ITS | Continuity of Care Document ---
Author Organization [facility] Julián Shahram lt Address [address] [place] [address]- Care Team Providers Care Insurance Sales Professional Name Role Phone Wm CHAIDEZ, Carmen Harris Primary Care Physician Encounter [facility] Date(s): 07/03/21 - 08/02/21 [facility] Adult [address] [place] [address]- Allergies, Adverse Reactions, Alerts Substance Reaction Severity Status codeine Active sulfa drugs rash Active Neosporin Active Tape tape-skin breakdown Active Immunizations Given and Recorded Vaccine Date Status Refusal Reason SARS-CoV-2 mRNA (kwkxnpu-icwi-wciwt) vax 07/14/21 Given SARS-CoV-2 (COVID-19) mRNA BNT-162b2 [...] Stop 04/02/22 10:38:00 EST, 04/07/21 10:38:00 EST, [facility] #[id number], 157.6, cm, 10/14/20 13:53:00 EDT, Height Start Date: 04/07/21 Stop Date: 04/02/22 Status: Ordered Calcitrate with D 315 mg-250 intl units oral tablet See Instructions, TAKE 1 TABLET BY MOUTH TWICE DAILY, # 60 tablet, 5 Refills, Soft Stop, 07/03/21 16:41:00 EDT, [facility] #[id number], TAKE 1 TABLET BY MOUTH TWICE DAILY, [...] 5 Refills, Maintenance, 07/14/21 13:10:00 EDT, Tablet, [facility] #[id number], Partial fill upon patient request if the prescription is for a schedule II opioid drug., 1 tablet By Mouth Daily, 157.6, cm, 06... Start Date: 07/14/21 Status: Ordered hydrOXYzine pamoate 25 mg oral capsule 1 capsule, By Mouth, 2 times a day, PRN NEEDED FOR ANXIETY, for 30 days, schedule physical with Carmen Burk CALCULATOR OPERATOR, # 60 capsule, 5 Refills, Acute 12/30/21 9:11:00 EST, 07/03/21 9:11:00 EDT, [facility] #[id number], 157.6, cm, 10/14/20 13:53:00... Start Date: 07/03/21 Stop Date: 12/30/21 Status: Ordered lisinopril 10 mg oral tablet 1, tablet, By Mouth, Daily, # 90 tablet, Refills 3, Tot. Refills 3, Maintenance, 07/05/21 8:57:00 EDT, Route to Pharmacy Electronically, [facility] #[id number], 157.6, cm, 10/14/20 13:53:00 EDT,Height Start Date: 07/05/21 Status: Ordered magnesium oxide 400 mg oral tablet 1 tablet = 400 mg, By Mouth, Daily, for 30 days, # 30 tablet, 11 Refills, Acute 07/09/22 13:16:00 EDT, 07/14/21 13:16:00 EDT, [facility] #[id number], 157.6, cm, 07/14/21 12:48:00 EDT, Height Start [...] tablet, Refills 1, Route to Pharmacy Electronically, [facility] #[id number], 157.6, cm, 10/14/20 13:53:00 EDT, Height Start Date: 03/19/21 Status: Ordered omeprazole 20 mg oral enteric coated capsule 1 capsule, By Mouth, 2 times a day, # 180 capsule, 0 Refills, Maintenance, 07/03/21 16:41:00 EDT, [facility] #[id number], Please use this script, 157.6, cm, 10/14/20 [...] 45 tablet, 5 Refills, 07/05/21 8:57:00 EDT, [facility] #35778, 157.6, cm, 10/14/20 13:53:00 EDT, Height Start Date: 07/05/21 Status: Ordered traZODone 50 mg oral tablet 50 mg, 1, tablet, By Mouth, Daily at bedtime, # 30 tablet, Refills 6, Tot. Refills 6, Maintenance, 07/14/21 13:05:00 EDT, Route to Pharmacy Electronically, [facility] #[id number], Partial fill upon patient request if the prescription is for a gloria... Start Date: 07/14/21 Stop Date: 02/09/22 Status: Ordered Tylenol 325 mg oral tablet 325 mg, 1, tablet, By Mouth, 2 times a day, # 60 tablet, Refills 0, Tot. Refills 0, Maintenance, 12/13/16 12:48:45, Route to Pharmacy Electronically, [id number], [facility] [address] Start Date: 12/13/16 Status: Ordered Ventolin HFA 108 mcg/inh inhalation aerosol with adapter 2 puffs, Inhalation, 4 times a day, PRN for wheezing, # 8 Gm, 5 Refills, Maintenance, 05/03/21 10:58:00 EDT, Aerosol, [facility] #62456, 157.6, cm, 10/14/20 13:53:00 EDT, Height Start Date: 05/03/21 Status: Ordered Wixela Inhub 500 mcg-50 mcg inhalation powder 1 puffs, Inhalation, 2 times a day, # 60 each, 5 Refills, [facility] #[id number], 30, INHALE 1PUFF BY MOUTH TWICE DAILY, 157.6, cm, 10/14/20 13:53:00 EDT, Height Start Date: 06/01/21 Status: Ordered Problem List Condition Effective Dates Status Health Status Inform ant Anxiety(Confirmed) Active Asthma(Confirmed) Active Oxygen dependent(Confirmed) Active Hypertension(Confirmed) Active Depression, major, in remission(Confirmed) Active Obese class II(Confirmed) Active Osteoarthritis(Confirmed) Active *[facility] [phone] 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
--- OUTSIDE RECORDS SUMMARY | 2023-07-07 11:24 | XMS_ITS | Continuity of Care Document ---
Author Organization [facility] Address [address] [place] [address]- Care Team Providers Care Compliance Spec Name Role Phone Wm CHAIDEZ, Carmen Harris Primary Care Physician Encounter [facility] Date(s): 08/08/22 - 09/07/22 [facility] [address] [place] [address]- Allergies, Adverse Reactions, Alerts Substance Reaction Severity Status codeine Active sulfa drugs rash Active Neosporin Active Tape tape-skin breakdown Active Immunizations Given and Recorded Vaccine Date Status Refusal Reason SARS-CoV-2 mRNA (kxlysph-asdu-ifvgh) vax 07/14/21 Given SARS-CoV-2 (COVID-19) mRNA BNT-162b2 [...] 6 Refills, Maintenance, 07/12/22 16:43:00 EDT, Solution, [facility]/pharmacy #[id number], Partial fill upon patient request if the prescription is for a schedule II opioid drug., 157.6, cm, 0... Start Date: 07/12/22 Status: Ordered albuterol 0.083% inhalation solution 3 mL = 2.5 mg, Inhalation, Every 6 hours, PRN for wheezing, # 60 each, 4 Refills, Maintenance, 12/12/21 8:44:00 EDT, Solution, [facility]/pharmacy #2339, 157.6, cm, 11/24/21 13:30:00 [...] 5 Refills, Soft Stop, 07/03/21 16:41:00 EDT, [facility] #[id number], TAKE 1 TABLET BY MOUTH TWICE DAILY, [...] 5 Refills, Maintenance, 05/08/22 8:43:00 EDT, Tablet, [facility]/pharmacy #2339, Partial fill upon patient [...] Refills, Maintenance, 06/18/22 14:19:00 EDT, [id number], 157.6, cm, 05/23/22 11:27:00 EDT, Height Start Date: 06/18/22 Status: Ordered losartan 50 mg oral tablet 50 mg, 1, tablet, By Mouth, Daily, # 30 tablet, Refills 11, Tot. Refills 11, Maintenance, 05/23/22 11:59:00 EDT, Route to Pharmacy Electronically, [facility]/pharmacy #2339, Partial fill upon patient request if the prescription is for a schedule II opioid drUrszula. Start Date: 05/23/22 Status: Ordered magnesium oxide 400 mg oral tablet 1 tablet = 400 mg, By Mouth, Daily, for 30 days, # 30 tablet, 11 Refills, Acute 12/07/22 8:48:00 EDT, 12/12/21 8:48:00 EDT, [facility]/pharmacy #2339, 157.6, cm, 11/24/21 13:30:00 [...] 06/17/22 9:57:00 EDT, Route to Pharmacy Electronically, [facility] 24227, 157.6, cm, 05/23/22 11:27:00 EDT, Height Start Date: 06/17/22 Status: Ordered omeprazole 20 mg oral enteric coated capsule 1 capsule, By Mouth, 2 times a day, # 180 capsule, 0 Refills, Maintenance, 06/06/22 8:30:00 EDT, [facility]/pharmacy #2339, 157.6, cm, 05/23/22 11:27:00 EDT, [...] tablet, 1 Refills, Maintenance, 06/18/22 14:19:00 EDT, [id number], 157.6, cm, 05/23/22 11:27:00 EDT, Height Start Date: 06/18/22 Status: Ordered Trelegy Ellipta 200 mcg-62.5 mcg-25 mcg/inh inhalation powder 1 puffs, Inhalation, Daily, at the same time every day, # 1 each, 6 Refills, Maintenance, 07/12/22 16:19:00 EDT, Powder, [facility]/pharmacy #[id number], Partial fill upon patient request if the prescription is for a schedule II opioid drug., 1 puffs Inhalation Da... Start Date: 07/12/22 Status: Ordered Tylenol 325 mg oral tablet 325 mg, 1, tablet, By Mouth, 2 times a day, # 60 tablet, Refills 0, Tot. Refills 0, Maintenance, 12/13/16 12:48:45, Route to Pharmacy Electronically, [id number], [facility] [address] Start Date: 12/13/16 Status: Ordered Ventolin HFA 108 mcg/inh inhalation aerosol with adapter 2 puffs, Inhalation, 4 times a day, PRN for wheezing, brand name medically necessary, # 8 Gm, 5 Refills, Maintenance, 12/18/21 12:07:00 EST, Aerosol, [facility]/pharmacy #2339, 157.6, cm, 11/24/21 13:30:00 EDT, Height Start Date: 12/18/21 Status: Ordered Problem List Condition Confirmation Course Effective Dates Status H ealth Status Informant Anxiety Confirmed Active Asthma Confirmed Active Oxygen dependent Confirmed Active Hypertension Confirmed Active Depression, major, in remission Confirmed Active Obese class I Confirmed Active Osteoarthritis Confirmed Active *[facility] [phone] 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 Onco RN Member Role: Primary Care Nurse Name: Carmen Burk NP Position: [facility] PCO Associate Professional Member Role: PCP Address: Address: [address] [place] [address]- Care Team Related Persons Name: STACIE HORTON Address: home [address] [place] [address] Name: STACIE CHARLES Address: home [address] [place] [address] Name: LUCIANO GRIMES Address: [place] [address]
--- OUTSIDE RECORDS SUMMARY | 2023-07-07 11:24 | XMS_ITS | Continuity of Care Document ---
Author Organization [facility] Jorje Gallego Shahram Address [address] [place] [address]- Care Team Providers Care Dock Boss Name Role Phone Wm CHAIDEZ, Carmen Harris Primary Care Physician [phone] Encounter [facility] Date(s): 11/23/21 - 12/23/21 [facility] Jorje Garsialey Adult [address] [place] [address]- Allergies, Adverse Reactions, Alerts Substance Reaction Severity Status codeine Active Neosporin Active Tape tape-skin breakdown Active sulfa drugs rash Active Immunizations Given and Recorded Vaccine Date Status Refusal Reason SARS-CoV-2 mRNA (hzguxbh-retz-feewy) vax 07/14/21 Given SARS-CoV-2 (COVID-19) mRNA BNT-162b2 [...] Given 1Early/Late Reason: Accommodate D/C 2Admin Note: [facility] info given to patient Medications [...] 5 Refills, Soft Stop, 07/03/21 16:41:00 EDT, [facility] #[id number], TAKE 1 TABLET BY MOUTH TWICE DAILY, [...] 30 days, schedule physical with Carmen Burk WEBBING INSPECTOR, # 60 capsule, 5 Refills, Acute 06/10/22 8:47:00 EDT, 12/12/21 8:47:00 EDT, [facility]/pharmacy #2339, 157.6, cm, 11/24/21 13:30:00 EDT, Height Start Date: 12/12/21 Stop Date: 06/10/22 Status: Ordered Incruse Ellipta 62.5 mcg/inh inhalation powder 1 each, Inhalation, Every 24 hours, doses should be taken at least 24 hours apart, [id number], # 1 each, 6 Refills, Maintenance, 12/12/21 8:50:00 EDT, Powder, [facility]/pharmacy #2339, Partial fill upon patient request if the prescription is for a schedule II o... Start Date: 12/12/21 Status: Ordered lisinopril 10 mg oral tablet 1, tablet, By Mouth, Daily, # 90 tablet, Refills 3, Tot. Refills 3, Maintenance, 12/12/21 8:47:00 EDT, Route to Pharmacy Electronically, [facility]/pharmacy #2339, 157.6, cm, 11/24/21 13:30:00 EDT, Height Start Date: 12/12/21 Status: Ordered magnesium oxide 400 mg oral tablet 1 tablet = 400 mg, By Mouth, Daily, for 30 days, # 30 tablet, 11 Refills, Acute 12/07/22 8:48:00 EDT, 12/12/21 8:48:00 EDT, [facility]/pharmacy #2339, 157.6, cm, 11/24/21 13:30:00 EDT, Height Start Date: 12/12/21 Stop Date: 12/07/22 Status: Ordered Miscellaneous Rx 1, tablet, By Mouth, 2 times a day, # 60 tablet, 0 Refills, Maintenance, 07/24/19 8:51:00 EDT, 157.6, cm, 07/20/19 9:46:00 EDT, Height, 84.9, kg, 10/08/18 10:16:00 EDT, Dry Weight Start Date: 07/24/19 Status: Ordered montelukast 10 mg oral tablet 1, tablet, By Mouth, Daily in PM, # 90 tablet, Refills 1, Tot. Refills 1, 12/12/21 8:48:00 EDT, Route to Pharmacy Electronically, [facility]/pharmacy #2339, 157.6, cm, 11/24/21 13:30:00 EDT, Height Start Date: 12/12/21 Status: Ordered omeprazole 20 mg oral enteric coated capsule 1 capsule, By Mouth, 2 times a day, # 180 capsule, 0 Refills, Maintenance, 12/08/21 9:23:00 EDT, [facility]/pharmacy #2339, Please use this script, 157.6, cm, [...] tablet, 5 Refills, 12/12/21 8:49:00 EDT, [facility]/pharmacy #2339, 157.6, cm, 11/24/21 13:30:00 EDT, Height Start Date: 12/12/21 Status: Ordered traZODone 50 mg oral tablet 50 mg, 1, tablet, By Mouth, Daily at bedtime, # 30 tablet, Refills 6, Tot. Refills 6, Maintenance, 12/12/21 8:50:00 EDT, Route to Pharmacy Electronically, [facility]/pharmacy #[id number], Partial fill upon patient request if the prescription is for a schedule II o... Start Date: 12/12/21 Stop Date: 07/10/22 Status: Ordered Tylenol 325 mg oral tablet 325 mg, 1, tablet, By Mouth, 2 times a day, # 60 tablet, Refills 0, Tot. Refills 0, Maintenance, 12/13/16 12:48:45, Route to Pharmacy Electronically, [id number], [facility] Start Date: 12/13/16 Status: Ordered Ventolin HFA 108 mcg/inh inhalation aerosol with adapter 2 puffs, Inhalation, 4 times a day, PRN for wheezing, brand name medically necessary, # 8 Gm, 5 Refills, Maintenance, 12/18/21 12:07:00 EST, Aerosol, [facility]/pharmacy #2339, 157.6, cm, 11/24/21 13:30:00 EDT, Height Start Date: 12/18/21 Status: Ordered Wixela Inhub 500 mcg-50 mcg inhalation powder 1 puffs, Inhalation, 2 times a day, # 60 each, 5 Refills, 12/12/21 8:47:00 EDT, [facility]/pharmacy #2339,30, 1 puffs Inhalation 2 times a day, 157.6, cm, 11/24/21 13:30:00 EDT, Height Start Date: 12/12/21 Status: Ordered Problem List Condition Confirmation Course Effective Dates Status H ealth Status Informant Anxiety Confirmed Active Asthma Confirmed Active Oxygen dependent Confirmed Active Hypertension Confirmed Active Depression, major, in remission Confirmed Active Obese class II Confirmed Active Osteoarthritis Confirmed Active *[facility] [phone] 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
--- OUTSIDE RECORDS SUMMARY | 2023-07-07 11:24 | XMS_ITS | Continuity of Care Document ---
Author Organization [facility] Shahram Address [address] [place] [address]- Care Team Providers Care Psychiatry Physician Name Role Phone Wm CHAIDEZ, Carmen Harris Primary Care Physician [phone] Encounter [facility] Date(s): 11/30/20 - 12/30/20 [facility] Adult [address] [place] [address]- Allergies, Adverse Reactions, Alerts Substance Reaction Severity [...] Mouth, Daily, # 90 tablet, 0 Refills, [facility] #[id number], 157.6, cm, 217:36:00 EST, Height Start Date: 10/14/20 Status: Ordered Calcitrate with D 315 mg-250 intl units oral tablet See Instructions, TAKE 1 TABLET BY MOUTH TWICE DAILY, # 60 tablet, 5 Refills, Soft Stop, 12/13/20 11:12:00 EDT, [facility] #40151, TAKE 1 TABLET BY MOUTH TWICE DAILY, [...] 5 Refills, Maintenance, 12/22/20 13:54:00 EST, Tablet, [facility] #[id number], Partial fill upon patient request if the prescription is for a schedule II opioid drug., 1 tablet By Mouth Daily, 157.6, cm, 09... Start Date: 12/22/20 Status: Ordered fluticasone 50 mcg/inh nasal spray See Instructions, SHAKE LIQUID AND USE 1 SPRAY IN EACH NOSTRIL DAILY, # 16 Gm, 0 Refills, [facility] #82637, 60, SHAKE LIQUID AND USE 1 SPRAY IN EACH NOSTRIL DAILY, 157.6, cm, 10/14/20 13:53:00 EDT, Height Start Date: 12/13/20 Status: Ordered hydrOXYzine pamoate 25 mg oral capsule 1 capsule, By Mouth, 2 times a day, PRN NEEDED FOR ANXIETY, for 30 days, # 60 capsule, 5 Refills, Acute 04/12/21 13:40:00 EST, 10/14/20 13:40:00 EDT, [facility] #68603, 157.6, cm, 10/14/20 13:12:00 EDT, Height Start Date: 10/14/20 Stop Date: 04/12/21 Status: Ordered lisinopril 10 mg oral tablet 1, tablet, By Mouth, Daily, # 90 tablet, Refills 3, Tot. Refills 3, Maintenance, 12/05/20 10:00:00 EDT, Route to Pharmacy Electronically, [facility] #[id number], 157.6, cm, 10/14/20 13:53:00 EDT, Height Start Date: 12/05/20 Status: Ordered melatonin 10 mg oral tablet, disintegrating 1 tablet = 10 mg, By Mouth, Daily at bedtime, for 30 days, # 30 tablet, 1 Refills, Acute 02/11/21 11:12:00 EST, 12/13/20 11:12:00 EDT, [facility] #15624, Partial fill upon patient request if the [...] Replace Required Details, Route to Pharmacy Electronically, [facility] #46712, 157.6, cm, 0... Start Date: 12/13/20 Status: Ordered omeprazole 20 mg oral enteric coated capsule 1 capsule, By Mouth, 2 times a day, # 60 capsule, 2 Refills, Maintenance, 10/14/20 13:40:00 EDT, [facility] #[id number], 157.6, cm, 10/14/20 13:12:00 EDT, Height Start [...] Mouth, Daily, # 45 tablet, 5 Refills, [facility] #48153, 157.6, cm, 10/14/20 13:53:00 EDT, Height Start Date: 11/21/20 Status: Ordered Tylenol 325 mg oral tablet 325 mg, 1, tablet, By Mouth, 2 times a day, # 60 tablet, Refills 0, Tot. Refills 0, Maintenance, 12/13/16 12:48:45, Route to Pharmacy Electronically, [id number], [facility] [address] Start Date: 12/13/16 Status: Ordered Ventolin HFA 108 mcg/inh inhalation aerosol with adapter 2 puffs, Inhalation, 4 times a day, PRN for wheezing, # 8 Gm, 5 Refills, Maintenance, 11/30/20 12:14:00 EDT, Aerosol, [facility] #56663, 157.6, cm, 10/14/20 13:53:00 EDT, Height Start Date: 11/30/20 Status: Ordered Wixela Inhub 500 mcg-50 mcg inhalation powder 1 puffs, Inhalation, 2 times a day, # 60 each, 5 Refills, [facility] #74750, 30, INHALE 1PUFF BY MOUTH TWICE DAILY, 157.6, cm, 10/14/20 13:53:00 EDT, Height Start Date: 11/28/20 Status: Ordered Problem List Condition Effective Dates Status Health Status Inform ant Anxiety(Confirmed) Active Asthma(Confirmed) Active COPD(Confirmed) Active Oxygen dependent(Confirmed) Active Hypertension(Confirmed) Active Depression, major, in remission(Confirmed) Active Osteoarthritis(Confirmed) Active *[facility] [phone] 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
--- OUTSIDE RECORDS SUMMARY | 2023-07-07 11:24 | XMS_ITS | Continuity of Care Document ---
Author Organization [facility] Julián Shahram Address [address] [place] [address]- Care Team Providers Care Barman Name Role Phone Wm CHAIDEZ, Carmen Harris Primary Care Physician [phone] Encounter [facility] Date(s): 07/17/21 - 08/16/21 [facility] Jorje Gallego Adult [address] [place] [address]- Allergies, Adverse Reactions, Alerts Substance Reaction Severity Status codeine Active sulfa drugs rash Active Neosporin Active Tape tape-skin breakdown Active Immunizations Given and Recorded Vaccine Date Status Refusal Reason SARS-CoV-2 mRNA (avulyyu-rtvk-puqps) vax 07/14/21 Given SARS-CoV-2 (COVID-19) mRNA BNT-162b2 [...] Stop 04/02/22 10:38:00 EST, 04/07/21 10:38:00 EST, [facility] #[id number], 157.6, cm, 10/14/20 13:53:00 EDT, Height Start Date: 04/07/21 Stop Date: 04/02/22 Status: Ordered Calcitrate with D 315 mg-250 intl units oral tablet See Instructions, TAKE 1 TABLET BY MOUTH TWICE DAILY, # 60 tablet, 5 Refills, Soft Stop, 07/03/21 16:41:00 EDT, [facility] #[id number], TAKE 1 TABLET BY MOUTH TWICE DAILY, [...] 5 Refills, Maintenance, 07/14/21 13:10:00 EDT, Tablet, [facility] #55093, Partial fill upon patient request if the prescription is for a schedule II opioid drug., 1 tablet By Mouth Daily, 157.6, cm, 06... Start Date: 07/14/21 Status: Ordered hydrOXYzine pamoate 25 mg oral capsule 1 capsule, By Mouth, 2 times a day, PRN NEEDED FOR ANXIETY, for 30 days, schedule physical with Carmen Burk BRUSH CUTTER, # 60 capsule, 5 Refills, Acute 12/30/21 9:11:00 EST, 07/03/21 9:11:00 EDT, [facility] #45714, 157.6, cm, 10/14/20 13:53:00... Start Date: 07/03/21 Stop Date: 12/30/21 Status: Ordered lisinopril 10 mg oral tablet 1, tablet, By Mouth, Daily, # 90 tablet, Refills 3, Tot. Refills 3, Maintenance, 07/05/21 8:57:00 EDT, Route to Pharmacy Electronically, [facility] #00394, 157.6, cm, 10/14/20 13:53:00 EDT,Height Start Date: 07/05/21 Status: Ordered magnesium oxide 400 mg oral tablet 1 tablet = 400 mg, By Mouth, Daily, for 30 days, # 30 tablet, 11 Refills, Acute 07/09/22 13:16:00 EDT, 07/14/21 13:16:00 EDT, [facility] #40960, 157.6, cm, 07/14/21 12:48:00 EDT, Height Start [...] tablet, Refills 1, Route to Pharmacy Electronically, [facility] #50293, 157.6, cm, 10/14/20 13:53:00 EDT, Height Start Date: 03/19/21 Status: Ordered omeprazole 20 mg oral enteric coated capsule 1 capsule, By Mouth, 2 times a day, # 180 capsule, 0 Refills, Maintenance, 07/03/21 16:41:00 EDT, [facility] #33555, Please use this script, 157.6, cm, 10/14/20 [...] 45 tablet, 5 Refills, 07/05/21 8:57:00 EDT, [facility] #61247, 157.6, cm, 10/14/20 13:53:00 EDT, Height Start Date: 07/05/21 Status: Ordered traZODone 50 mg oral tablet 50 mg, 1, tablet, By Mouth, Daily at bedtime, # 30 tablet, Refills 6, Tot. Refills 6, Maintenance, 07/14/21 13:05:00 EDT, Route to Pharmacy Electronically, [facility] #[id number], Partial fill upon patient request if the prescription is for a gloria... Start Date: 07/14/21 Stop Date: 02/09/22 Status: Ordered Tylenol 325 mg oral tablet 325 mg, 1, tablet, By Mouth, 2 times a day, # 60 tablet, Refills 0, Tot. Refills 0, Maintenance, 12/13/16 12:48:45, Route to Pharmacy Electronically, [id number], [facility] Start Date: 12/13/16 Status: Ordered Ventolin HFA 108 mcg/inh inhalation aerosol with adapter 2 puffs, Inhalation, 4 times a day, PRN for wheezing, # 8 Gm, 5 Refills, Maintenance, 05/03/21 10:58:00 EDT, Aerosol, [facility] #39629, 157.6, cm, 10/14/20 13:53:00 EDT, Height Start Date: 05/03/21 Status: Ordered Wixela Inhub 500 mcg-50 mcg inhalation powder 1 puffs, Inhalation, 2 times a day, # 60 each, 5 Refills, [facility] #44308, 30, INHALE 1PUFF BY MOUTH TWICE DAILY, 157.6, cm, 10/14/20 13:53:00 EDT, Height Start Date: 06/01/21 Status: Ordered Problem List Condition Effective Dates Status Health Status Inform ant Anxiety(Confirmed) Active Asthma(Confirmed) Active Oxygen dependent(Confirmed) Active Hypertension(Confirmed) Active Depression, major, in remission(Confirmed) Active Obese class II(Confirmed) Active Osteoarthritis(Confirmed) Active *[facility] [phone] CARE MANAG ER TRIXIE LEÓN(Confirmed) Active PTSD [...]
--- OUTSIDE RECORDS SUMMARY | 2023-07-07 11:24 | XMS_ITS | Continuity of Care Document ---
Author Organization [facility] Jorje Gallego Shahram Address [address] [place] [address]- Care Team Providers Care Director Of Flight Operations Name Role Phone Wm CHAIDEZ, Carmen Harris Primary Care Physician Encounter [facility] Date(s): 12/14/22 - 01/13/23 [facility] Jorje Gallego Adult [address] [place] [address]- Allergies, Adverse Reactions, Alerts Substance Reaction Severity Status codeine Active Neosporin Active Tape tape-skin breakdown Active sulfa drugs rash Active Immunizations Given and Recorded Vaccine Date Status Refusal Reason SARS-CoV-2 mRNA (oeqdjas-jlxx-tkhiv) vax 07/14/21 Given SARS-CoV-2 (COVID-19) mRNA BNT-162b2 [...] 5 Refills, Maintenance, 01/04/23 13:28:00 EST, Solution, [facility], Partial fill upon patient request if the prescription is for a schedule II opioid drug., 157.6,... Start Date: 01/04/23 Status: Ordered albuterol 0.083% inhalation solution 3 mL = 2.5 mg, Inhalation, Every 6 hours, PRN for wheezing, # 60 each, 4 Refills, Maintenance, 12/12/21 8:44:00 EDT, Solution, [facility]/pharmacy #[id number], 157.6, cm, 11/24/21 13:30:00 EDT, Height Start Date: 12/12/21 Status: Ordered azithromycin 500 mg oral tablet 1 tablet = 500 mg, By Mouth, Every Saturday, Saturday and Saturday, for 30 days, j44.9, # 13 tablet, 6Refills, Acute 08/06/23 13:25:00 EDT, 01/08/23 13:25:00 EST, Tablet, [facility], Partial fill upon patient request if the prescription... Start Date: 01/08/23 Stop Date: 08/06/23 Status: Ordered azithromycin 500 mg oral tablet 1 tablet = 500 mg, By Mouth, Every Saturday, Saturday and Saturday, for 180 days, # 78 tablet, 1 Refills, Acute 11/19/23 10:09:00 EDT, 11/24/22 10:09:00 EDT, Tablet, [facility]/pharmacy #[id number], Partial fill upon patient request if the prescription is for a sched... Start Date: 11/24/22 Stop Date: 11/19/23 Status: Ordered Calcitrate with D 315 mg-250 intl units oral tablet See Instructions, TAKE 1 TABLET BY MOUTH TWICE DAILY, # 60 tablet, 5 Refills, Soft Stop, 07/03/21 16:41:00 EDT, [facility] #[id number], TAKE 1 TABLET BY MOUTH TWICE DAILY, 157.6, cm, 10/14/20 13:53:00 EDT, Height Start Date: 07/03/21 Status: Ordered calcium (as citrate)-vitamin D 315 mg-250 intl units oral tablet 1 tablet, By Mouth, 2 times a day, # 60 tablet, 6 Refills, Maintenance, 01/07/23 6:56:00 EST, Tablet, [facility], Partial fill upon patient request [...] 5 Refills, Maintenance, 05/08/22 8:43:00 EDT, Tablet, [facility]/pharmacy #[id number], Partial fill upon patient request if the [...] capsule, 1 Refills, Maintenance, 01/07/23 6:54:00 EST, [facility], 157.6, cm, 11/26/22 9:24:00 EDT, Height Start Date: 01/07/23 Status: Ordered losartan 50 mg oral tablet 50 mg, 1, tablet, By Mouth, Daily, # 30 tablet, Refills 11, Tot. Refills 11, Maintenance, 01/07/23 6:54:00 EST, Route to Pharmacy Electronically, [facility], Partial fill upon patient request [...] 01/07/23 6:53:00 EST, Route to Pharmacy Electronically, [facility], 157.6, cm, 11/26/22 9:24:00EDT, Height Start Date: 01/07/23 Status: Ordered O2 evaluation O2 evaluation, See Instructions, # 1 each, Refills 11, Tot. Refills 11, Maintenance, updated O2 Rx for this patient for the following: Pt requires 2LPM at rest and 3 LPM with activity/portability. [facility] J44.9 J45.909, .. Start Date: 12/14/22 Status: Ordered omeprazole 20 mg oral enteric coated capsule 1 capsule, By Mouth, 2 times a day, # 180 capsule, 0 Refills, Maintenance, 01/07/23 6:53:00 EST, [facility], 157.6, cm, 11/26/22 9:24:00 EDT, [...] tablet, 1 Refills, Maintenance, 01/07/23 6:53:00 EST, [facility], 157.6, cm, 11/26/22 9:24:00 EDT, Height Start Date: 01/07/23 Status: Ordered Trelegy Ellipta 200 mcg-62.5 mcg-25 mcg/inh inhalation powder 1 puffs, Inhalation, Daily, at the same time every day, j44.9, # 1 each, 6 Refills, Maintenance, 10/10/22 15:08:00 EDT, Powder, [facility], Partial fill upon patient request if the prescription is for a schedule II opioid drug., 1 puf... Start Date: 10/10/22 Status: Ordered Tylenol 325 mg oral tablet 325 mg, 1, tablet, By Mouth, 2 times a day, # 60 tablet, Refills 0, Tot. Refills 0, Maintenance, 12/13/16 12:48:45, Route to Pharmacy Electronically, [id number], [facility] [id number] Start Date: 12/13/16 Status: Ordered Ventolin HFA 108 mcg/inh inhalation aerosol with adapter 2 puffs, Inhalation, 4 times a day, PRN for wheezing, brand name medically necessary, # 18 Gm, 5 Refills, Maintenance, 01/04/23 13:28:00 EST, Aerosol, [facility], 157.6, cm, :24:00 EDT, Height Start Date: 01/04/23 Status: Ordered Problem List Condition Confirmation Course Effective Dates Status H ealth Status Informant Anxiety Confirmed Active Asthma Confirmed Active Oxygen dependent Confirmed Active Hypertension Confirmed Active Depression, major, in remission Confirmed Active Osteoarthritis Confirmed Active *[facility] [phone] 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 Onco RN Member Role: Primary Care Nurse Name: Wm CHAIDEZ, Carmen Harris Position: [facility] PCO Associate Professional Member Role: PCP Address: Address: [address] [place] [id number] Care Team Related Persons Name: STACIE HORTON Address: home [address] [place] [address] Name: SATCIE CHARLES Address: home [address] [place] [address] Name: LUCIANO GRIMES Address: home [address] [place] [id number]
--- OUTSIDE RECORDS SUMMARY | 2023-07-07 11:24 | XMS_ITS | Continuity of Care Document ---
Author Organization [facility] Jorje Gallego Shahram Address [address] [place] [address]- Care Team Providers Care Clearance Coordinator Name Role Phone Wm CHAIDEZ, Carmen Harris Primary Care Physician [place] [facility] [place] 06/25/21 [facility] Jorje Gallego Adult [address] [place] [address]- Attending Physician: Carmen Burk NP Allergies, Adverse [...] Stop 04/02/22 10:38:00 EST, 04/07/21 10:38:00 EST, [facility] #[id number], 157.6, cm, 10/14/20 13:53:00 EDT, Height Start Date: 04/07/21 Stop Date: 04/02/22 Status: Ordered Calcitrate with D 315 mg-250 intl units oral tablet See Instructions, TAKE 1 TABLET BY MOUTH TWICE DAILY, # 60 tablet, 5 Refills, Soft Stop, 12/13/20 11:12:00 EDT, [facility] #[id number], TAKE 1 TABLET BY MOUTH TWICE DAILY, [...] 5 Refills, Maintenance, 12/22/20 13:54:00 EST, Tablet, [facility] #[id number], Partial fill upon patient request if the prescription is for a schedule II opioid drug., 1 tablet By Mouth Daily, 157.6, cm, 09... Start Date: 12/22/20 Status: Ordered fluticasone 50 mcg/inh nasal spray See Instructions, SHAKE LIQUID AND USE 1 SPRAY IN EACH NOSTRIL DAILY, # 16 Gm, 2 Refills, [facility] #[id number], 60, SHAKE LIQUID AND USE 1 SPRAY IN EACH NOSTRIL DAILY, 157.6, cm, 10/14/20 13:53:00 EDT, Height Start Date: 02/17/21 Status: Ordered lisinopril 10 mg oral tablet 1, tablet, By Mouth, Daily, # 90 tablet, Refills 3, Tot. Refills 3, Maintenance, 12/05/20 10:00:00 EDT, [id number], 157.6, cm, 10/14/20 13:53:00 EDT, Height Start [...] tablet, Refills 1, [id number], 157.6, cm, 10/14/20 13:53:00 EDT, Height Start Date: 03/19/21 Status: Ordered omeprazole 20 mg oral enteric coated capsule 1 capsule, By Mouth, 2 times a day, # 180 capsule, 1 Refills, Maintenance, 03/06/21 10:04:00 EST, [facility] #[id number], Please use this script, 157.6, cm, 10/14/20 [...] Mouth, Daily, # 45 tablet, 5 Refills, [facility] #[id number], 157.6, cm, 10/14/20 13:53:00 EDT, Height Start Date: 11/21/20 Status: Ordered Tylenol 325 mg oral tablet 325 mg, 1, tablet, By Mouth, 2 times a day, # 60 tablet, Refills 0, Tot. Refills 0, Maintenance, 12/13/16 12:48:45, Route to Pharmacy Electronically, [id number], [facility] [id number] Start Date: 12/13/16 Status: Ordered Ventolin HFA 108 mcg/inh inhalation aerosol with adapter 2 puffs, Inhalation, 4 times a day, PRN for wheezing, # 8 Gm, 5 Refills, Maintenance, 05/03/21 10:58:00 EDT, Aerosol, [facility] #[id number], 157.6, cm, 10/14/20 13:53:00 EDT, Height Start Date: 05/03/21 Status: Ordered Wixela Inhub 500 mcg-50 mcg inhalation powder 1 puffs, Inhalation, 2 times a day, # 60 each, 5 Refills, [facility] #[id number], 30, INHALE 1PUFF BY MOUTH TWICE DAILY, 157.6, cm, 10/14/20 13:53:00 EDT, Height Start Date: 06/01/21 Status: Ordered Problem List Condition Effective Dates Status Health Status Inform ant Anxiety(Confirmed) Active Asthma(Confirmed) Active COPD(Confirmed) Active Oxygen dependent(Confirmed) Active Hypertension(Confirmed) Active Depression, major, in remission(Confirmed) Active Osteoarthritis(Confirmed) Active *[facility] [phone] CARE MANAG ER TRIXIE LEÓN(Confirmed) Active PTSD [...]
--- OUTSIDE RECORDS SUMMARY | 2023-07-07 11:24 | XMS_ITS | Continuity of Care Document ---
Author Organization [facility] Jorje Gallego Shahram Address [address] [place] [address]- Care Team Providers Care Casting Supervisor Name Role Phone Wm CHAIDEZ, Carmen Harris Primary Care Physician [place] [facility] [place] [facility] Jorje Gallego Adult [address] [place] [address]- Allergies, Adverse Reactions, Alerts Substance Reaction Severity Status codeine Active Neosporin Active Tape tape-skin breakdown Active sulfa drugs rash Active Immunizations Given and Recorded Vaccine Date Status Refusal Reason SARS-CoV-2 mRNA (sjctlsx-ouco-yzsqd) vax 07/14/21 Given SARS-CoV-2 (COVID-19) mRNA BNT-162b2 [...] 5 Refills, Maintenance, 01/04/23 13:28:00 EST, Solution, [facility], Partial fill upon patient request if the prescription is for a schedule II opioid drug., 157.6,... Start Date: 01/04/23 Status: Ordered albuterol 0.083% inhalation solution 3 mL = 2.5 mg, Inhalation, Every 6 hours, PRN for wheezing, # 60 each, 4 Refills, Maintenance, 12/12/21 8:44:00 EDT, Solution, [facility]/pharmacy #[id number], 157.6, cm, 11/24/21 13:30:00 EDT, Height Start Date: 12/12/21 Status: Ordered azithromycin 500 mg oral tablet 1 tablet = 500 mg, By Mouth, Every Saturday, Saturday and Saturday, for 30 days, j44.9, # 13 tablet, 6Refills, Acute 08/06/23 13:25:00 EDT, 01/08/23 13:25:00 EST, Tablet, [facility], Partial fill upon patient request if the prescription... Start Date: 01/08/23 Stop Date: 08/06/23 Status: Ordered azithromycin 500 mg oral tablet 1 tablet = 500 mg, By Mouth, Every Saturday, Saturday and Saturday, for 180 days, # 78 tablet, 1 Refills, Acute 11/19/23 10:09:00 EDT, 11/24/22 10:09:00 EDT, Tablet, [facility]/pharmacy #2339, Partial fill upon patient request if the prescription is for a sched... Start Date: 11/24/22 Stop Date: 11/19/23 Status: Ordered Calcitrate with D 315 mg-250 intl units oral tablet See Instructions, TAKE 1 TABLET BY MOUTH TWICE DAILY, # 60 tablet, 5 Refills, Soft Stop, 07/03/21 16:41:00 EDT, [id number], TAKE 1 TABLET BY MOUTH TWICE DAILY, 157.6, cm, 10/14/20 13:53:00 EDT, Height Start Date: 07/03/21 Status: Ordered calcium (as citrate)-vitamin D 315 mg-250 intl units oral tablet 1 tablet, By Mouth, 2 times a day, # 60 tablet, 6 Refills, Maintenance, 01/07/23 6:56:00 EST, Tablet, [facility], Partial fill upon patient request [...] 5 Refills, Maintenance, 05/08/22 8:43:00 EDT, Tablet, [facility]/pharmacy #[id number], Partial fill upon patient [...] capsule, 1 Refills, Maintenance, 01/07/23 6:54:00 EST, [facility], 157.6, cm, 11/26/22 9:24:00 EDT, Height Start Date: 01/07/23 Status: Ordered losartan 50 mg oral tablet 50 mg, 1, tablet, By Mouth, Daily, # 30 tablet, Refills 11, Tot. Refills 11, Maintenance, 01/07/23 6:54:00 EST, Route to Pharmacy Electronically, [facility], Partial fill upon patient request [...] 01/07/23 6:53:00 EST, Route to Pharmacy Electronically, [facility], 157.6, cm, 11/26/22 9:24:00EDT, Height Start Date: 01/07/23 Status: Ordered O2 evaluation O2 evaluation, See Instructions, # 1 each, Refills 11, Tot. Refills 11, Maintenance, updated O2 Rx for this patient for the following: Pt requires 2LPM at rest and 3 LPM with activity/portability. [facility] J44.9 J45.909, . [...] day, # 180 capsule, 0 Refills, Maintenance, 05/10/23 9:42:00 EDT, [facility], 157.6, cm, 11/26/22 9:24:00 EDT, Height Start Date: 05/10/23 Status: Ordered Portable Nebulizer and supplies Portable Nebulizer and supplies, See Instructions, # 1 each, Refills 11, Tot. Refills 11, Maintenance, Portable Nebulizer A7003 Neb Disp Set A7014 Neb non- Disp Filter A7005 Neb Non-Disp set A7015 Aerosol Mask A7013 [facility] Disp Filter Dx COPD J44.9 Le... [...] tablet, 1 Refills, Maintenance, 01/07/23 6:53:00 EST, [facility], 157.6, cm, 11/26/22 9:24:00 EDT, Height Start Date: 01/07/23 Status: Ordered Trelegy Ellipta 200 mcg-62.5 mcg-25 mcg/inh inhalation powder 1 puffs, Inhalation, Daily, at the same time every day, j44.9, # 3 each, 3 Refills, Maintenance, 04/08/23 15:20:00 EST, Powder, [facility], Partial fill upon patient request if the prescription is for a schedule II opioid drug., 1 puf... Start Date: 04/08/23 Status: Ordered Tylenol 325 mg oral tablet 325 mg, 1, tablet, By Mouth, 2 times a day, # 60 tablet, Refills 0, Tot. Refills 0, Maintenance, 12/13/16 12:48:45, Route to Pharmacy Electronically, [id number], [facility] [id number] Start Date: 12/13/16 Status: Ordered Ventolin HFA 108 mcg/inh inhalation aerosol with adapter 2 puffs, Inhalation, 4 times a day, PRN for wheezing, brand name medically necessary, # 18 Gm, 5 Refills, Maintenance, 01/04/23 13:28:00 EST, Aerosol, [facility], 157.6, cm, 239:24:00 EDT, Height Start Date: 01/04/23 Status: Ordered Problem List Condition Confirmation Course Effective Dates Status H ealth Status Informant Anxiety Confirmed Active Asthma Confirmed Active Oxygen dependent Confirmed Active Hypertension Confirmed Active Depression, major, in remission Confirmed Active Osteoarthritis Confirmed Active *[facility] [phone] [employer]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
--- OUTSIDE RECORDS SUMMARY | 2023-07-07 11:24 | XMS_ITS | Continuity of Care Document ---
Author Organization [facility] Address [address] [place] [address]- Care Team Providers Care Gang Saw Operator Name Role Phone Wm CHAIDEZ, Carmen Harris Primary Care Physician Encounter [facility] [place](s): 06/05/22 - 07/05/22 [facility] [address] [place] [address]- Allergies, Adverse Reactions, Alerts Substance Reaction Severity Status codeine Active sulfa drugs rash Active Neosporin Active Tape tape-skin breakdown Active Immunizations Given and Recorded Vaccine Date Status Refusal Reason SARS-CoV-2 mRNA (pvhinws-unuh-jpmcd) vax 07/14/21 Given SARS-CoV-2 (COVID-19) mRNA BNT-162b2 [...] 4 Refills, Maintenance, 12/12/21 8:44:00 EDT, Solution, [facility]/pharmacy #2339, 157.6, cm, 11/24/21 13:30:00 EDT, [...] 5 Refills, Soft Stop, 07/03/21 16:41:00 EDT, [facility] #[id number], TAKE 1 TABLET BY MOUTH TWICE DAILY, [...] 5 Refills, Maintenance, 05/08/22 8:43:00 EDT, Tablet, [facility]/pharmacy #2339, Partial fill upon patient request [...] capsule, 1 Refills, Maintenance, 06/18/22 14:19:00 EDT, [id number], 157.6, cm, 05/23/22 11:27:00 EDT, Height Start Date: 06/18/22 Status: Ordered Incruse Ellipta 62.5 mcg/inh inhalation powder 1 each, Inhalation, Every 24 hours, doses should be taken at least 24 hours apart, j45.40, # 1 each, 6 Refills, Maintenance, 12/12/21 8:50:00 EDT, Powder, [facility]/pharmacy #2339, Partial fill upon patient request if the prescription is for a schedule II o... Start Date: 12/12/21 Status: Ordered losartan 50 mg oral tablet 50 mg, 1, tablet, By Mouth, Daily, # 30 tablet, Refills 11, Tot. Refills 11, Maintenance, 05/23/22 11:59:00 EDT, Route to Pharmacy Electronically, [facility]/pharmacy #2339, Partial fill upon patient request if the prescription is for a schedule II opioid dr... Start Date: 05/23/22 Status: Ordered magnesium oxide 400 mg oral tablet 1 tablet = 400 mg, By Mouth, Daily, for 30 days, # 30 tablet, 11 Refills, Acute 12/07/22 8:48:00 EDT, 12/12/21 8:48:00 EDT, [facility]/pharmacy #2339, 157.6, cm, 11/24/21 13:30:00 EDT, [...] 06/17/22 9:57:00 EDT, Route to Pharmacy Electronically, [id number], 157.6, cm, 05/23/22 11:27:00 EDT, Height Start Date: 06/17/22 Status: Ordered omeprazole 20 mg oral enteric coated capsule 1 capsule, By Mouth, 2 times a day, # 180 capsule, 0 Refills, Maintenance, 06/06/22 8:30:00 EDT, [facility]/pharmacy #2339, 157.6, cm, 05/23/22 11:27:00 EDT, [...] tablet, 1 Refills, Maintenance, 06/18/22 14:19:00 EDT, [facility] [id number], 157.6, cm, 05/23/22 11:27:00 EDT, Height Start Date: 06/18/22 Status: Ordered Tylenol 325 mg oral tablet 325 mg, 1, tablet, By Mouth, 2 times a day, # 60 tablet, Refills 0, Tot. Refills 0, Maintenance, 12/13/16 12:48:45, Route to Pharmacy Electronically, [id number], [facility] [id number] Start Date: 12/13/16 Status: Ordered Ventolin HFA [...] 2 times a day, # 60 each, 4 Refills, Maintenance, 06/28/22 16:02:00 EDT, [facility] 8[facility], 30, INHALE 1 PUFF BY MOUTH TWICE A DAY, 157.6, cm, 05/23/22 11:27:00 EDT, Height Start Date: 06/28/22 Status: Ordered Problem List Condition Confirmation Course Effective Dates Status H ealth Status Informant Anxiety Confirmed Active Asthma Confirmed Active Oxygen dependent Confirmed Active Hypertension Confirmed Active Depression, major, in remission Confirmed Active Obese class I Confirmed Active Osteoarthritis Confirmed Active *[facility] [phone] 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
--- OUTSIDE RECORDS SUMMARY | 2023-07-07 11:24 | XMS_ITS | Continuity of Care Document ---
Author Organization [facility] ter Address [address] [place] [address]- Care Team Providers Care Land Leveler Name Role Phone Wm CHAIDEZ, Carmen Harris Primary Care Physician En[place] [facility] Date(s): 03/21/23 - 04/26/[address] [address] Attending Physician: Bella Shelton MD Admitting Physician: Bella Shelton MD Referring Physician: Bella Shelton MD Allergies, Adverse Reactions, Alerts Substance Reaction Severity Status codeine Active sulfa drugs rash Active Neosporin Active Tape tape-skin breakdown Active Immunizations Given and Recorded Vaccine Date Status Refusal Reason SARS-CoV-2 mRNA (jvwoimk-mjak-vlwpa) vax 07/14/21 Given SARS-CoV-2 (COVID-19) mRNA BNT-162b2 [...] 1Early/Late Reason: Accommodate D/C 2Admin Note: [facility] info given to patient [...] 5 Refills, Maintenance, 01/04/23 13:28:00 EST, Solution, [facility], Partial fill upon patient request if the prescription is for a schedule II opioid drug., 157.6,... Start Date: 01/04/23 Status: Ordered albuterol 0.083% inhalation solution 3 mL = 2.5 mg, Inhalation, Every 6 hours, PRN for wheezing, # 60 each, 4 Refills, Maintenance, 12/12/21 8:44:00 EDT, Solution, [facility]/pharmacy #[id number], 157.6, cm, 11/24/21 13:30:00 EDT, Height Start Date: 12/12/21 Status: Ordered azithromycin 500 mg oral tablet 1 tablet = 500 mg, By Mouth, Every Saturday, Saturday and Saturday, for 30 days, j44.9, # 13 tablet, 6Refills, Acute 08/06/23 13:25:00 EDT, 01/08/23 13:25:00 EST, Tablet, [facility], Partial fill upon patient request if the prescription... Start Date: 01/08/23 Stop Date: 08/06/23 Status: Ordered azithromycin 500 mg oral tablet 1 tablet = 500 mg, By Mouth, Every Saturday, Saturday and Saturday, for 180 days, # 78 tablet, 1 Refills, Acute 11/19/23 10:09:00 EDT, 11/24/22 10:09:00 EDT, Tablet, [facility]/pharmacy #2339, Partial fill upon patient request if the prescription is for a sched... Start Date: 11/24/22 Stop Date: 11/19/23 Status: Ordered Calcitrate with D 315 mg-250 intl units oral tablet See Instructions, TAKE 1 TABLET BY MOUTH TWICE DAILY, # 60 tablet, 5 Refills, Soft Stop, 07/03/21 16:41:00 EDT, [facility] #[id number], TAKE 1 TABLET BY MOUTH TWICE DAILY, 157.6, cm, 10/14/20 13:53:00 EDT, Height Start Date: 07/03/21 Status: Ordered calcium (as citrate)-vitamin D 315 mg-250 intl units oral tablet 1 tablet, By Mouth, 2 times a day, # 60 tablet, 6 Refills, Maintenance, 01/07/23 6:56:00 EST, Tablet, [facility], Partial fill upon patient request [...] 5 Refills, Maintenance, 05/08/22 8:43:00 EDT, Tablet, [facility]/pharmacy #2339, Partial fill upon patient [...] capsule, 1 Refills, Maintenance, 01/07/23 6:54:00 EST, [facility], 157.6, cm, 11/26/22 9:24:00 EDT, Height Start Date: 01/07/23 Status: Ordered losartan 50 mg oral tablet 50 mg, 1, tablet, By Mouth, Daily, # 30 tablet, Refills 11, . Refills 11, Maintenance, 01/07/23 6:54:00 EST, Route to Pharmacy Electronically, [facility], Partial fill upon patient [...] 01/07/23 6:53:00 EST, Route to Pharmacy Electronically, [facility], 157.6, cm, 11/26/22 9:24:00EDT, Height Start Date: 01/07/23 Status: Ordered O2 evaluation O2 evaluation, See Instructions, # 1 each, Refills 11, Tot. Refills 11, Maintenance, updated O2 Rx for this patient for the following: Pt requires 2LPM at rest and 3 LPM with activity/portability. [facility] J44.9 [...] capsule, 0 Refills, Maintenance, 01/07/23 6:53:00 EST, [facility], 157.6, cm, 11/26/22 9:24:00 EDT, [...] tablet, 1 Refills, Maintenance, 01/07/23 6:53:00 EST, [facility], 157.6, cm, 11/26/22 9:24:00 EDT, Height Start Date: 01/07/23 Status: Ordered Trelegy Ellipta 200 mcg-62.5 mcg-25 mcg/inh inhalation powder 1 puffs, Inhalation, Daily, at the same time every day, j44.9, # 3 each, 3 Refills, Maintenance, 04/08/23 15:20:00 EST, Powder, [facility], Partial fill upon patient request if the prescription is for a schedule II opioid drug., 1 puf... Start Date: 04/08/23 Status: Ordered Tylenol 325 mg oral tablet 325 mg, 1, tablet, By Mouth, 2 times a day, # 60 tablet, Refills 0, Tot. Refills 0, Maintenance, 12/13/16 12:48:45, Route to Pharmacy Electronically, [id number], [facility] [address] Start Date: 12/13/16 Status: Ordered Ventolin HFA 108 mcg/inh inhalation aerosol with adapter 2 puffs, Inhalation, 4 times a day, PRN for wheezing, brand name medically necessary, # 18 Gm, 5 Refills, Maintenance, 01/04/23 13:28:00 EST, Aerosol, [facility], 157.6, cm, :24:00 EDT, Height Start Date: 01/04/23 Status: Ordered Problem List Condition Confirmation Course Effective Dates Status H ealth Status Informant Anxiety Confirmed Active Asthma Confirmed Active Oxygen dependent Confirmed Active Hypertension Confirmed Active Depression, major, in remission Confirmed Active Osteoarthritis Confirmed Active *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
--- OUTSIDE RECORDS SUMMARY | 2023-07-07 11:24 | XMS_ITS | Continuity of Care Document ---
Author Organization [facility] Julián Shahram Address [address] [place] [address]- Care Team Providers Care Pharmacy District Manager Name Role Phone Wm CHAIDEZ, Carmen Harris Primary Care Physician [facility] [facility] [place] Date(s): 02/16/20 - 03/17/20 [facility] Juli[facility] Adult [address] [place] [address]- Allergies, Adverse Reactions, Alerts Substance Reaction Severity [...] 3 Refills, Maintenance, 07/20/19 10:52:00 EDT, Tablet, [facility] #[id number], 157.6, cm, 07/20/19 9:46:00 EDT, Height, 84.9, kg, 11/18/17 10:16:00EDT, Dry Weight Start Date: 07/20/19 Stop Date: 07/14/20 Status: Ordered Calcitrate with D 315 mg-250 intl units oral tablet See Instructions, TAKE 1 TABLET BY MOUTH TWICE DAILY, # 60 tablet, 11 Refills, Soft Stop, 08/10/19 7:50:00 EDT, [id number], TAKE 1 TABLET BY MOUTH TWICE DAILY, [...] 5 Refills, Soft Stop, 10/21/19 16:07:00 EDT, [id number], 157.6, cm, 07/20/19 9:46:00 EDT, Height, 84.9, kg, 11/18/17 10:... Start Date: 10/21/19 Status: Ordered lisinopril 10 mg oral tablet 10 mg, 1, tablet, By Mouth, Daily, for 90 days, # 90 tablet, Refills 0, Tot. Refills 0, Hard Stop 04/01/20 11:48:00 EST, 01/02/20 11:48:00 EST, Route to Pharmacy Electronically, [facility][id number], 157.6, cm, 12/25/19 13:55:00 EST, Height Start Date: 01/02/20 Stop Date: 04/01/20 Status: Ordered magnesium oxide 400 mg oral tablet 1 tablet = 400 mg, By Mouth, Daily, for 30 days, # 30 tablet, 6 Refills, Acute 09/14/20 8:18:00 EDT, 02/17/20 8:18:00 EST, [facility][id number], 157.6, cm, 02/17/20 7:36:00 EST, Height Start Date: 02/17/20 Stop Date: 09/14/20 Status: Ordered melatonin 5 mg oral tablet, disintegrating 1 tablet = 5 mg, By Mouth, Daily at bedtime, PRN as needed for insomnia, for 30 days, # 30 tablet, 6 Refills, Acute 09/14/20 8:19:00 EDT, 02/17/20 8:19:00 EST, DIS Tablet, [facility] #66533, Partial fill upon patient request if the [...] Replace Required Details, Route to Pharmacy Electronically, [facility] #75232, 157.6, cm, 0... Start Date: 03/13/20 Status: Ordered omeprazole 20 mg oral enteric coated capsule 1 capsule, By Mouth, 2 times a day, # 60 capsule, 2 Refills, Maintenance, 02/17/20 7:57:00 EST, [facility] #55186, 157.6, cm, 02/17/20 7:36:00 EST, Height Start [...] 5 Refills, Soft Stop, 10/21/19 16:40:00 EDT, [facility] #[id number], 157.6, cm, 07/20/19 9:46:00 EDT, Height, 84.9, kg, 11/18/17 10:16:00 EDT, Dry Weight Start Date: 10/21/19 Status: Ordered Tylenol 325 mg oral tablet 325 mg, 1, tablet, By Mouth, 2 times a day, # 60 tablet, Refills 0, Tot. Refills 0, Maintenance, 12/13/16 12:48:45, Route to Pharmacy Electronically, [id number], [facility] [address] Start Date: 12/13/16 Status: Ordered Ventolin HFA 108 mcg/inh inhalation aerosol with adapter 2 puffs, Inhalation, 4 times a day, PRN for wheezing, # 8 Gm, 5 Refills, Maintenance, 06/29/19 14:41:00 EDT, Aerosol, [facility] #[id number], 157.6, cm, 06/29/19 11:18:00 EDT, Height, 84.9, kg, 11/18/17 10:16:00 EDT, Dry Weight Start Date: 06/29/19 Status: Ordered Wixela Inhub 500 mcg-50 mcg inhalation powder 1 puffs, Inhalation, 2 times a day, # 60 each, 3 Refills, Maintenance, 10/28/19 8:50:00 EDT, [facility] #30714, 30, INHALE 1 PUFF BY MOUTH TWICE DAILY, 157.6, cm, 07/20/19 9:46:00 EDT, Height, 84.9, kg, 11/18/17 10:16:00 EDT, Dry Weight Start Date: 10/28/19 Status: Ordered Wixela Inhub 500 mcg-50 mcg inhalation powder See Instructions, INHALE 1 PUFF BY MOUTH TWICE DAILY, # 60 each, 0 Refills, Maintenance, [facility] #04582, 30, INHALE 1 PUFF BY MOUTH TWICE DAILY, 157.6, cm, 02/17/20 7:36:00 EST, Height Start Date: 02/17/20 Status: Ordered Problem List Condition Effective Dates Status Health Status Inform ant Anxiety(Confirmed) Active Asthma(Confirmed) Active COPD(Confirmed) Active Oxygen dependent(Confirmed) Active Hypertension(Confirmed) Active Osteoarthritis(Confirmed) Active *[facility] [phone] 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
--- OUTSIDE RECORDS SUMMARY | 2023-07-07 11:24 | XMS_ITS | Continuity of Care Document ---
Author Organization [facility] ter Address [address] [place] [id number]- Care Team Providers Care Lacemaker Name Role Phone Wm CHAIDEZ, Carmen Harris Primary Care Physician [place] [facility] [place] - 09/16/[address] [address]- [facility] Attending Physician: Not on Staff, Attending MD Referring Physician: Gabo Hernandez MD Allergies, [...] 05/05/19 16:28:00 EDT, Route to Pharmacy Electronically, [id number], [facility] #[id number], 157.6, cm, 01/07/19 11:31:00 Carlos SHANE... Start Date: 05/05/19 Status: Ordered albuterol 0.083% [...] 08/18/19 16:35:00 EDT, Route to Pharmacy Electronically, [facility] #64238, 157.6, cm, 07/20/19 9:46:00 EDT, Height, 84.9, kg, 1... Start Date: 08/18/19 Status: Ordered anastrozole 1 mg oral tablet 1 tablet = 1 mg, By Mouth, Daily, # 90 tablet, 3 Refills, Maintenance, 07/20/19 10:52:00 EDT, Tablet, [facility]156, 157.6, cm, 07/20/19 9:46:00 EDT, Height, 84.9, [...] 11 Refills, Soft Stop, 08/10/19 7:50:00 EDT, [facility] #87207, TAKE 1 TABLET BY MOUTH TWICE DAILY, 157.6, cm, 07/20/19 9:46:00 EDT, Height, 84.9, kg, 11/18/17 10:16:00 EDT,... Start Date: 08/10/19 Status: Ordered Flonase 50 mcg/inh nasal spray 1 sprays, Nares, Both, 2 times a day, # 1 each, 0 Refills, Maintenance, 03/22/15 15:02:47, [place], 1sprays Nares, Both 2 times a day,x30 days Start Date: 03/22/15 Stop Date: 04/21/15 Status: Ordered ibuprofen 600 mg oral tablet 600 mg, 1, tablet, By Mouth, 2 times a day, # 60 tablet, Refills 0, Tot. Refills 0, Maintenance, 12/13/16 12:53:25, Route to Pharmacy Electronically, [id number], [facility] [address] Start Date: 12/13/16 Status: Ordered Incruse Ellipta 62.5 mcg/inh inhalation powder See Instructions, INHALE 1 PUFF BY MOUTH EVERY 24 HOURS DOSES SHOULD BE TAKEN AT LEAST 24 HOURS APART, # 30 each, 5 Refills, Soft Stop, 05/05/19 16:28:00 EDT, [facility] #03381, 157.6, cm, 01/07/19 11:31:00 EST, Height, 84.9, kg, 11/18/17 10... Start Date: 05/05/19 Status: Ordered lisinopril 10 mg oral tablet 10 mg, 1, tablet, By Mouth, Daily, for 90 days, # 90 tablet, Refills 3, Tot. Refills 3, Hard Stop 01/02/20 11:48:55 EST, 01/07/19 11:48:55 EST, Route to Pharmacy Electronically, [id number], [facility] #53532 Start Date: 01/07/19 Stop Date: 01/02/20 Status: Ordered magnesium oxide 400 mg oral tablet 1 tablet = 400 mg, By Mouth, Daily, for 30 days, # 30 tablet, 6 Refills, Acute 02/15/20 10:51:00 EST, 07/20/19 10:51:00 EDT, [facility] #15015, 157.6, cm, 07/20/19 9:46:00 EDT, Height, 84.9, [...] Replace Required Details, Route to Pharmacy Electronically, [id number], [facility] Start Date: 01/07/19 Status: Ordered omeprazole 20 mg oral enteric coated capsule 1 capsule = 20 mg, By Mouth, 2 times a day, # 60 capsule, 3 Refills, Maintenance, 06/30/19 12:23:00EDT, EC Capsule, [facility] #86027, 157.6, cm, 06/29/19 11:18:00 EDT, Height, 84.9, [...] 3 Refills, Soft Stop, 06/29/19 13:26:00 EDT, [facility] #33934, 157.6, cm, 06/29/19 11:18:00 EDT, Height, 84.9, kg, 11/18/17 10:16:00 EDT, Dry Weight Start Date: 06/29/19 Status: Ordered Tylenol 325 mg oral tablet 325 mg, 1, tablet, By Mouth, 2 times a day, # 60 tablet, Refills 0, Tot. 

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
--- OUTSIDE RECORDS SUMMARY | 2023-07-07 11:25 | XMS_ITS | Continuity of Care Document ---
Author Organization [facility] Julián Shahram Address [address] [place] [address]- Care Team Providers Care Director Of Safety Name Role Phone Wm CHAIDEZ, Carmen Harris Primary Care Physician [phone] Encounter [facility] Date(s): 12/16/19 - 01/24/20 [facility] Adult [address] [place] [address]- Attending Physician: Mihai Quarles MD Allergies, Adverse Reactions, Alerts Substance Reaction [...] 08/18/19 16:35:00 EDT, Route to Pharmacy Electronically, [facility] #87905, 157.6, cm, 07/20/19 9:46:00 EDT, Height, 84.9, kg, 1... Start Date: 08/18/19 Status: Ordered anastrozole 1 mg oral tablet 1 tablet = 1 mg, By Mouth, Daily, # 90 tablet, 3 Refills, Maintenance, 07/20/19 10:52:00 EDT, Tablet, [facility] #[id number], 157.6, cm, 07/20/19 9:46:00 EDT, Height, 84.9, [...] Refills, Soft Stop, 12/25/19 15:15:00 EST, Tablet, [facility] #[id number], Partial fill upon patient request, 157.6,cm, 12/25/19 13:55:00 EST, Height Start Date: 12/25/19 Status: Ordered Calcitrate with D 315 mg-250 intl units oral tablet See Instructions, TAKE 1 TABLET BY MOUTH TWICE DAILY, # 60 tablet, 11 Refills, Soft Stop, 08/10/19 7:50:00 EDT, [facility] #20205, TAKE 1 TABLET BY MOUTH TWICE DAILY, 157.6, cm, 07/20/19 9:46:00 EDT, Height, 84.9, kg, 11/18/17 10:16:00 EDT,... Start Date: 08/10/19 Status: Ordered Flonase 50 mcg/inh nasal spray 1 sprays, Nares, Both, 2 times a day, # 1 each, 0 Refills, Maintenance, 03/22/15 15:02:47, [place], 1sprays Nares, Both 2 times a day,x30 days Start Date: 03/22/15 Stop Date: 04/21/15 Status: Ordered ibuprofen 600 mg oral tablet 600 mg, 1, tablet, By Mouth, 2 times a day, # 60 tablet, Refills 0, Tot. Refills 0, Maintenance, 12/13/16 12:53:25, Route to Pharmacy Electronically, [id number], [facility] [address] Start Date: 12/13/16 Status: Ordered Incruse Ellipta 62.5 mcg/inh inhalation powder See Instructions, INHALE 1 PUFF BY MOUTH EVERY 24 HOURS DOSES SHOULD BE TAKEN AT LEAST 24 HOURS APART, # 30 each, 5 Refills, Soft Stop, 10/21/19 16:07:00 EDT, [facility] #15195, 157.6, cm, 07/20/19 9:46:00 EDT, Height, 84.9, kg, 11/18/17 10:... Start Date: 10/21/19 Status: Ordered lisinopril 10 mg oral tablet 10 mg, 1, tablet, By Mouth, Daily, for 90 days, # 90 tablet, Refills 0, Tot. Refills 0, Hard Stop 04/01/20 11:48:00 EST, 01/02/20 11:48:00 EST, Route to Pharmacy Electronically, [facility] #13680, 157.6, cm, 12/25/19 13:55:00 EST, Height Start Date: 01/02/20 Stop Date: 04/01/20 Status: Ordered magnesium oxide 400 mg oral tablet 1 tablet = 400 mg, By Mouth, Daily, for 30 days, # 30 tablet, 6 Refills, Acute 02/15/20 10:51:00 EST, 07/20/19 10:51:00 EDT, [facility] #28188, 157.6, cm, 07/20/19 9:46:00 EDT, Height, 84.9, [...] Replace Required Details, Route to Pharmacy Electronically, [id number], [facility] Start Date: 01/07/19 Status: Ordered omeprazole 20 mg oral enteric coated capsule 1 capsule, By Mouth, 2 times a day, Call the office to shcedule your next appointment, # 60 capsule, 0 Refills, Maintenance, 01/20/20 8:04:00 EST, [facility] #[id number], 157.6, cm, 12/25/19 13:55:00 EST, Height Start [...] 5 Refills, Soft Stop, 10/21/19 16:40:00 EDT, [facility] #05566, 157.6, cm, 07/20/19 9:46:00 EDT, Height, 84.9, kg, 11/18/17 10:16:00 EDT, Dry Weight Start Date: 10/21/19 Status: Ordered Tylenol 325 mg oral tablet 325 mg, 1, tablet, By Mouth, 2 times a day, # 60 tablet, Refills 0, Tot. Refills 0, Maintenance, 12/13/16 12:48:45, Route to Pharmacy Electronically, [id number], [facility] [address] Start Date: 12/13/16 Status: Ordered Ventolin HFA 108 mcg/inh inhalation aerosol with adapter 2 puffs, Inhalation, 4 times a day, PRN for wheezing, # 8 Gm, 5 Refills, Maintenance, 06/29/19 14:41:00 EDT, Aerosol, [facility] #19234, 157.6, cm, 06/29/19 11:18:00 EDT, Height, 84.9, kg, 11/18/17 10:16:00 EDT, Dry Weight Start Date: 06/29/19 Status: Ordered Wixela Inhub 500 mcg-50 mcg inhalation powder 1 puffs, Inhalation, 2 times a day, # 60 each, 3 Refills, Maintenance, 10/28/19 8:50:00 EDT, [facility] #94888, 30, INHALE 1 PUFF BY MOUTH TWICE DAILY, 157.6, cm, 07/20/19 9:46:00 EDT, Height, 84.9, kg, 11/18/17 10:16:00 EDT, Dry Weight Start Date: 10/28/19 Status: Ordered Problem List Condition Effective Dates Status Health Status Inform ant Anxiety(Confirmed) Active Asthma(Confirmed) Active COPD(Confirmed) Active Oxygen dependent(Confirmed) Active Hypertension(Confirmed) Active Osteoarthritis(Confirmed) Active *[facility] [phone] 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
--- OUTSIDE RECORDS SUMMARY | 2023-07-07 11:25 | XMS_ITS | Continuity of Care Document ---
Author Organization [facility] ter Address [address] [place] [address]- Care Team Providers Care Staff Developer Name Role Phone Wm CHAIDEZ, Carmen Harris Primary Care Physician Encounter [facility] [place] Date(s): 03/23/19 - 10/14/[address] [address]- [facility] Attending Physician: Carmen Burk NP Admitting Physician: [...] 05/05/19 16:28:00 EDT, Route to Pharmacy Electronically, [id number], [facility] #[id number], 157.6, cm, 01/07/19 11:31:00 EST, Carlos... Start [...] 08/18/19 16:35:00 EDT, Route to Pharmacy Electronically, [facility] #[id number], 157.6, cm, 07/20/19 9:46:00 EDT, Height, 84.9, kg, 1... Start Date: 08/18/19 Status: Ordered anastrozole 1 mg oral tablet 1 tablet = 1 mg, By Mouth, Daily, # 90 tablet, 3 Refills, Maintenance, 07/20/19 10:52:00 EDT, Tablet, [facility] #14206, 157.6, cm, 07/20/19 9:46:00 EDT, Height, 84.9, [...] 11 Refills, Soft Stop, 08/10/19 7:50:00 EDT, [facility] #[id number], TAKE 1 TABLET BY MOUTH TWICE DAILY, 157.6, cm, 07/20/19 9:46:00 EDT, Height, 84.9, kg, 11/18/17 10:16:00 EDT,... Start Date: 08/10/19 Status: Ordered Flonase 50 mcg/inh nasal spray 1 sprays, Nares, Both, 2 times a day, # 1 each, 0 Refills, Maintenance, 03/22/15 15:02:47, Connelly, 1sprays Nares, Both 2 times a day,x30 days Start Date: 03/22/15 Stop Date: 04/21/15 Status: Ordered ibuprofen 600 mg oral tablet 600 mg, 1, tablet, By Mouth, 2 times a day, # 60 tablet, Refills 0, Tot. Refills 0, Maintenance, 12/13/16 12:53:25, Route to Pharmacy Electronically, [id number], [facility] [address] Start Date: 12/13/16 Status: Ordered Incruse Ellipta 62.5 mcg/inh inhalation powder See Instructions, INHALE 1 PUFF BY MOUTH EVERY 24 HOURS DOSES SHOULD BE TAKEN AT LEAST 24 HOURS APART, # 30 each, 5 Refills, Soft Stop, 05/05/19 16:28:00 EDT, [facility] #[id number], 157.6, cm, 01/07/19 11:31:00 EST, Height, 84.9, kg, 11/18/17 10... Start Date: 05/05/19 Status: Ordered lisinopril 10 mg oral tablet 10 mg, 1, tablet, By Mouth, Daily, for 90 days, # 90 tablet, Refills 3, Tot. Refills 3, Hard Stop 01/02/20 11:48:55 EST, 01/07/19 11:48:55 EST, Route to Pharmacy Electronically, [id number], [facility] #[id number] Start Date: 01/07/19 Stop Date: 01/02/20 Status: Ordered magnesium oxide 400 mg oral tablet 1 tablet = 400 mg, By Mouth, Daily, for 30 days, # 30 tablet, 6 Refills, Acute 02/15/20 10:51:00 EST, 07/20/19 10:51:00 EDT, [facility] #[id number], 157.6, cm, 07/20/19 9:46:00 EDT, Height, 84.9, [...] Replace Required Details, Route to Pharmacy Electronically, [id number], [facility] Start Date: 01/07/19 Status: Ordered omeprazole 20 mg oral enteric coated capsule 1 capsule = 20 mg, By Mouth, 2 times a day, # 60 capsule, 3 Refills, Maintenance, 06/30/19 12:23:00EDT, EC Capsule, [facility] #29214, 157.6, cm, 06/29/19 11:18:00 EDT, Height, 84.9, [...] 3 Refills, Soft Stop, 06/29/19 13:26:00 EDT, [facility] #47168, 157.6, cm, 06/29/19 11:18:00 EDT, Height, 84.9, kg, 11/18/17 10:16:00 EDT, Dry Weight Start Date: 06/29/19 Status: Ordered Tylenol 325 mg oral tablet 325 mg, 1, tablet, By Mouth, 2 times a day, # 60 tablet, Refills 0, Tot. Refills 0, Maintenance, 12/13/16 12:48:45, Route to Pharmacy Electronically, [id number], [facility] [address] Start Date: 12/13/16 Status: Ordered Ventolin HFA 108 mcg/inh inhalation aerosol with adapter 2 puffs, Inhalation, 4 times a day, PRN for wheezing, # 8 Gm, 5 Refills, Maintenance, 06/29/19 14:41:00 EDT, Aerosol, [facility] #58881, 157.6, cm, 06/29/19 11:18:00 EDT, Height, 84.9, [...] Oxygen dependent(Confirmed) Active Hypertension(Confirmed) Active Osteoarthritis(Confirmed) Active *[facility] [phone] 

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
--- OUTSIDE RECORDS SUMMARY | 2023-07-07 11:25 | XMS_ITS | Continuity of Care Document ---
Author Organization [facility] ter Address [address] [place] [address]- Care Team Providers Care Waste Cotton Cleaner Name Role Phone Wm CHAIDEZ, Carmen Harris Primary Care Physician [place] [facility] [place] - 01/06/[address] [address] Attending Physician: Jerald Monzon MD Admitting Physician: Jerald Monzon MD Referring Physician: Bella Shelton MD Allergies, Adverse Reactions, Alerts Substance Reaction Severity Status codeine Active Neosporin Active Tape tape-skin breakdown Active sulfa drugs rash Active Immunizations Given and Recorded Vaccine Date Status Refusal Reason SARS-CoV-2 mRNA (dshrsmo-xefb-dkfkj) vax 07/14/21 Given SARS-CoV-2 (COVID-19) mRNA BNT-162b2 [...] Given 1Early/Late Reason: Accommodate D/C 2Admin Note: [facility] info given to patient [...] 5 Refills, Maintenance, 01/04/23 13:28:00 EST, Solution, [facility], Partial fill upon patient request if the prescription is for a schedule II opioid drug., 157.6,... Start Date: 01/04/23 Status: Ordered albuterol 0.083% inhalation solution 3 mL = 2.5 mg, Inhalation, Every 6 hours, PRN for wheezing, # 60 each, 4 Refills, Maintenance, 12/12/21 8:44:00 EDT, Solution, [facility]/pharmacy #[id number], 157.6, cm, 11/24/21 13:30:00 EDT, Height Start Date: 12/12/21 Status: Ordered azithromycin 500 mg oral tablet 1 tablet = 500 mg, By Mouth, Every Saturday, Saturday and Saturday, for 180 days, # 78 tablet, 1 Refills, Acute 11/19/23 10:09:00 EDT, 11/24/22 10:09:00 EDT, Tablet, [facility]/pharmacy #2339, Partial fill upon patient request if the prescription is for a sched... Start Date: 11/24/22 Stop Date: 11/19/23 Status: Ordered Calcitrate with D 315 mg-250 intl units oral tablet See Instructions, TAKE 1 TABLET BY MOUTH TWICE DAILY, # 60 tablet, 5 Refills, Soft Stop, 07/03/21 16:41:00 EDT, [facility] #[id number], TAKE 1 TABLET BY MOUTH TWICE DAILY, [...] 5 Refills, Maintenance, 05/08/22 8:43:00 EDT, Tablet, [facility]/pharmacy #2339, Partial fill upon patient request if [...] capsule, 1 Refills, Maintenance, 06/18/22 14:19:00 EDT, [facility] 95983, 157.6, cm, 05/23/22 11:27:00 EDT, Height Start Date: 06/18/22 Status: Ordered losartan 50 mg oral tablet 50 mg, 1, tablet, By Mouth, Daily, # 30 tablet, Refills 11, Tot. Refills 11, Maintenance, 05/23/22 11:59:00 EDT, Route to Pharmacy Electronically, [facility]/pharmacy #2339, Partial fill upon patient request if the prescription is for a schedule II opioid drUrszula. Start Date: 05/23/22 Status: Ordered Miscellaneous Rx 1, tablet, By Mouth, 2 times a day, # 60 tablet, 0 Refills, Maintenance, 07/24/19 8:51:00 EDT, 157.6, cm, 07/20/19 9:46:00 EDT, Height, 84.9, kg, 11/18/17 10:16:00 EDT, Dry Weight Start Date: 07/24/19 Status: Ordered montelukast 10 mg oral tablet 1, tablet, By Mouth, Daily in PM, # 90 tablet, Refills 1, Maintenance, 12/14/22 9:16:00 EDT, Route to Pharmacy Electronically, [facility], 157.6, cm, 11/26/22 9:24:00 EDT, Height Start Date: 12/14/22 Status: Ordered O2 evaluation O2 evaluation, See Instructions, # 1 each, Refills 11, Tot. Refills 11, Maintenance, updated O2 Rx for this patient for the following: Pt requires 2LPM at rest and 3 LPM with activity/portability. [facility] J44.9 J45.909, ... Start Date: 12/14/22 Status: Ordered omeprazole 20 mg oral enteric coated capsule 1 capsule, By Mouth, 2 times a day, # 180 capsule, 0 Refills, Maintenance, 12/06/22 12:30:00 EDT, [facility] 360[facility], 157.6, cm, 11/26/22 9:24:00 EDT, Height Start Date: 12/06/22 Status: Ordered Portable Nebulizer and supplies Portable [...] Daily, # 135 tablet, 1 Refills, Maintenance, 12/14/22 9:17:00 EDT, [facility] 87229, 157.6, cm, 11/26/22 9:24:00 EDT, Height Start Date: 12/14/22 Status: Ordered Trelegy Ellipta 200 mcg-62.5 mcg-25 mcg/inh inhalation powder 1 puffs, Inhalation, Daily, at the same time every day, j44.9, # 1 each, 6 Refills, Maintenance, 10/10/22 15:08:00 EDT, Powder, [facility], Partial fill upon patient request if the prescription is for a schedule II opioid drug., 1 puf... Start Date: 10/10/22 Status: Ordered Tylenol 325 mg oral tablet 325 mg, 1, tablet, By Mouth, 2 times a day, # 60 tablet, Refills 0, Tot. Refills 0, Maintenance, 12/13/16 12:48:45, Route to Pharmacy Electronically, [id number], [facility] [address] Start Date: 12/13/16 Status: Ordered Ventolin HFA 108 mcg/inh inhalation aerosol with adapter 2 puffs, Inhalation, 4 times a day, PRN for wheezing, brand name medically necessary, # 18 Gm, 5 Refills, Maintenance, 01/04/23 13:28:00 EST, Aerosol, [facility], 157.6, cm, 239:24:00 EDT, Height Start Date: 01/04/23 Status: Ordered Problem List Condition Confirmation Course Effective Dates Status H ealth Status Informant Anxiety Confirmed Active Asthma Confirmed Active Oxygen dependent Confirmed Active Hypertension Confirmed Active Depression, major, in remission Confirmed Active Osteoarthritis Confirmed Active *[facility] [phone] 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
--- OUTSIDE RECORDS SUMMARY | 2023-07-07 11:25 | XMS_ITS | Continuity of Care Document ---
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 Role Phone Wm CHAIDEZ, Carmen Harris Primary Care Physician Encounter [facility] [place] Date(s): 04/15/23 - 05/15/23 [facility] [address] [place] [address]- [place] Allergies, Adverse Reactions, Alerts Substance Reaction Severity Status codeine Active Neosporin Active Tape tape-skin breakdown Active sulfa drugs rash Active Immunizations Given and Recorded Vaccine Date Status Refusal Reason SARS-CoV-2 mRNA (pqztvsj-eetu-nglyl) vax 07/14/21 Given SARS-CoV-2 (COVID-19) mRNA BNT-162b2 [...] 5 Refills, Maintenance, 01/04/23 13:28:00 EST, Solution, [facility], Partial fill upon patient request if the prescription is for a schedule II opioid drug., 157.6,... Start Date: 01/04/23 Status: Ordered albuterol 0.083% inhalation solution 3 mL = 2.5 mg, Inhalation, Every 6 hours, PRN for wheezing, # 60 each, 4 Refills, Maintenance, 12/12/21 8:44:00 EDT, Solution, [facility]/pharmacy #2339, 157.6, cm, 11/24/21 13:30:00 EDT, Height Start Date: 12/12/21 Status: Ordered azithromycin 500 mg oral tablet 1 tablet = 500 mg, By Mouth, Every Saturday, Saturday and Saturday, for 30 days, j44.9, # 13 tablet, 6Refills, Acute 08/06/23 13:25:00 EDT, 01/08/23 13:25:00 EST, Tablet, [facility], Partial fill upon patient request if the prescription... Start Date: 01/08/23 Stop Date: 08/06/23 Status: Ordered azithromycin 500 mg oral tablet 1 tablet = 500 mg, By Mouth, Every Saturday, Saturday and Saturday, for 180 days, # 78 tablet, 1 Refills, Acute 11/19/23 10:09:00 EDT, 11/24/22 10:09:00 EDT, Tablet, [facility]/pharmacy #2339, Partial fill upon patient request if the prescription is for a sched... Start Date: 11/24/22 Stop Date: 11/19/23 Status: Ordered Calcitrate with D 315 mg-250 intl units oral tablet See Instructions, TAKE 1 TABLET BY MOUTH TWICE DAILY, # 60 tablet, 5 Refills, Soft Stop, 07/03/21 16:41:00 EDT, [facility] #[id number], TAKE 1 TABLET BY MOUTH TWICE DAILY, 157.6, cm, 10/14/20 13:53:00 EDT, Height Start Date: 07/03/21 Status: Ordered calcium (as citrate)-vitamin D 315 mg-250 intl units oral tablet 1 tablet, By Mouth, 2 times a day, # 60 tablet, 6 Refills, Maintenance, 01/07/23 6:56:00 EST, Tablet, [facility], Partial fill upon patient request if [...] 5 Refills, Maintenance, 05/08/22 8:43:00 EDT, Tablet, [facility]/pharmacy #2339, Partial fill upon patient [...] capsule, 1 Refills, Maintenance, 01/07/23 6:54:00 EST, [facility], 157.6, cm, 11/26/22 9:24:00 EDT, Height Start Date: 01/07/23 Status: Ordered losartan 50 mg oral tablet 50 mg, 1, tablet, By Mouth, Daily, # 30 tablet, Refills 11, Tot. Refills 11, Maintenance, 01/07/23 6:54:00 EST, Route to Pharmacy Electronically, [facility], Partial fill upon patient request if [...] 01/07/23 6:53:00 EST, Route to Pharmacy Electronically, [facility], 157.6, cm, 11/26/22 9:24:00EDT, Height Start Date: 01/07/23 Status: Ordered O2 evaluation O2 evaluation, See Instructions, # 1 each, Refills 11, Tot. Refills 11, Maintenance, updated O2 Rx for this patient for the following: Pt requires 2LPM at rest and 3 LPM with activity/portability. [facility] Dx J44.9 J45.909, .. Start Date: 12/14/22 Status: Ordered O2 rx [...] capsule, 0 Refills, Maintenance, 05/10/23 9:42:00 EDT, [facility], 157.6, cm, 11/26/22 9:24:00 EDT, Height [...] tablet, 1 Refills, Maintenance, 01/07/23 6:53:00 EST, [facility], 157.6, cm, 11/26/22 9:24:00 EDT, Height Start Date: 01/07/23 Status: Ordered Trelegy Ellipta 200 mcg-62.5 mcg-25 mcg/inh inhalation powder 1 puffs, Inhalation, Daily, at the same time every day, j44.9, # 3 each, 3 Refills, Maintenance, 04/08/23 15:20:00 EST, Powder, [facility], Partial fill upon patient request if the prescription is for a schedule II opioid drug., 1 puf... Start Date: 04/08/23 Status: Ordered Tylenol 325 mg oral tablet 325 mg, 1, tablet, By Mouth, 2 times a day, # 60 tablet, Refills 0, Tot. Refills 0, Maintenance, 12/13/16 12:48:45, Route to Pharmacy Electronically, [id number], [facility] [address] Start Date: 12/13/16 Status: Ordered Ventolin HFA 108 mcg/inh inhalation aerosol with adapter 2 puffs, Inhalation, 4 times a day, PRN for wheezing, brand name medically necessary, # 18 Gm, 5 Refills, Maintenance, 01/04/23 13:28:00 EST, Aerosol, 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
--- OUTSIDE RECORDS SUMMARY | 2023-07-07 11:25 | XMS_ITS | Continuity of Care Document ---
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..] 5 Refills, Maintenance, 01/04/23 13:28:00 EST, Solution, [facility], Partial fill upon patient request if the prescription is for a schedule II opioid drug., 157.6,... Start Date: 01/04/23 Status: Ordered albuterol 0.083% inhalation solution 3 mL = 2.5 mg, Inhalation, Every 6 hours, PRN for wheezing, # 60 each, 4 Refills, Maintenance, 12/12/21 8:44:00 EDT, Solution, [facility]/pharmacy #[id number], 157.6, cm, 11/24/21 13:30:00 EDT, Height Start Date: 12/12/21 Status: Ordered azithromycin 500 mg oral tablet 1 tablet = 500 mg, By Mouth, Every Saturday, Saturday and Saturday, for 30 days, j44.9, # 13 tablet, 6Refills, Acute 08/06/23 13:25:00 EDT, 01/08/23 13:25:00 EST, Tablet, [facility], Partial fill upon patient request if the prescription... Start Date: 01/08/23 Stop Date: 08/06/23 Status: Ordered azithromycin 500 mg oral tablet 1 tablet = 500 mg, By Mouth, Every Saturday, Saturday and Saturday, for 180 days, # 78 tablet, 1 Refills, Acute 11/19/23 10:09:00 EDT, 11/24/22 10:09:00 EDT, Tablet, [facility]/pharmacy #[id number], Partial fill upon patient request if the prescription is for a sched... Start Date: 11/24/22 Stop Date: 11/19/23 Status: Ordered Calcitrate with D 315 mg-250 intl units oral tablet See Instructions, TAKE 1 TABLET BY MOUTH TWICE DAILY, # 60 tablet, 5 Refills, Soft Stop, 07/03/21 16:41:00 EDT, [facility] #[id number], TAKE 1 TABLET BY MOUTH TWICE DAILY, [...] 5 Refills, Maintenance, 05/08/22 8:43:00 EDT, Tablet, [facility]/pharmacy #[id number], Partial fill upon [...] 01/07/23 6:53:00 EST, Route to Pharmacy Electronically, [facility], 157.6, cm, 11/26/22 9:24:00EDT, Height Start Date: 01/07/23 Status: Ordered O2 evaluation O2 evaluation, See Instructions, # 1 each, Refills 11, Tot. Refills 11, Maintenance, updated O2 Rx for this patient for the following: Pt requires 2LPM at rest and 3 LPM with activity/portability. DME [facility] J44.9 J45.909, .. Start Date: 12/14/22 Status: Ordered omeprazole 20 mg oral enteric coated capsule 1 capsule, By Mouth, 2 times a day, # 180 capsule, 0 Refills, Maintenance, 01/07/23 6:53:00 EST, [facility], 157.6, cm, 11/26/22 9:24:00 EDT, Height Start [...] 6 Refills, Maintenance, 10/10/22 15:08:00 EDT, Powder, [facility], Partial fill upon patient request if the prescription is for a schedule II opioid drug., 1 puf... Start Date: 10/10/22 Status: Ordered Tylenol 325 mg oral tablet 325 mg, 1, tablet, By Mouth, 2 times a day, # 60 tablet, Refills 0, Tot. Refills 0, Maintenance, 12/13/16 12:48:45, Route to Pharmacy Electronically, [id number], [facility] [id number] Start Date: 12/13/16 Status: Ordered Ventolin HFA [...] in remission Confirmed Active Osteoarthritis Confirmed Active *[facility] [phone] [employer] TRIXIE LEÓN Confirmed Active PTSD (post-traumatic stress [...] Care Team Personnel Name: Natalia Kennedy Position: [facility] Onco RN Member Role: Primary Care Nurse Name: Carmen Burk NP Position: [facility] PCO Associate Professional Member Role: PCP Address: Address: [address] [place] [address] Care Team Related Persons Name: STACIE HORTON Address: home [address] [place] [address] Name: STACIE CHARLES Address: home [address] [place] [address] Name: LUCIANO GRIMES Address: home [address] [place] [id number]
--- OUTSIDE RECORDS SUMMARY | 2023-07-07 11:25 | XMS_ITS | Continuity of Care Document ---
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 Role Phone Wm CHAIDEZ, Carmen Harris Primary Care Physician Encounter [facility] Date(s): 05/23/22 - 08/26/22 [facility] Adult [address] [place] [address]- Attending Physician: Wm CHAIDEZ, Carmen Harris Referring Physician: Nick Clark MD Allergies, Adverse Reactions, Alerts Substance Reaction Severity Status codeine Active sulfa drugs rash Active Neosporin Active Tape tape-skin breakdown Active Immunizations Given and Recorded Vaccine Date Status Refusal Reason SARS-CoV-2 mRNA (wsbplqo-qedp-vpsis) vax 07/14/21 Given SARS-CoV-2 (COVID-19) mRNA BNT-162b2 [...] 5 Refills, Soft Stop, 07/03/21 16:41:00 EDT, [facility] #[id number], TAKE 1 TABLET BY MOUTH TWICE DAILY, [...] Refills, Maintenance, 05/08/22 8:43:00 EDT, Tablet, [facility]/pharmacy #[id number], Partial fill upon patient request [...] capsule, 1 Refills, Maintenance, 06/18/22 14:19:00 EDT, [id number], 157.6, cm, 05/23/22 11:27:00 EDT, Height Start Date: 06/18/22 Status: Ordered losartan 50 mg oral tablet 50 mg, 1, tablet, By Mouth, Daily, # 30 tablet, Refills 11, Tot. Refills 11, Maintenance, 05/23/22 11:59:00 EDT, Route to Pharmacy Electronically, [facility]/pharmacy #[id number], Partial fill upon patient request if the prescription is for a schedule II opioid drUrszula. Start Date: 05/23/22 Status: Ordered magnesium oxide 400 mg oral tablet 1 tablet = 400 mg, By Mouth, Daily, for 30 days, # 30 tablet, 11 Refills, Acute 12/07/22 8:48:00 EDT, 12/12/21 8:48:00 EDT, [facility]/pharmacy #[id number], 157.6, cm, 11/24/21 13:30:00 EDT, [...] 9:57:00 EDT, Route to Pharmacy Electronically, [facility], 157.6, cm, 05/23/22 11:27:00 EDT, Height Start Date: 06/17/22 Status: Ordered omeprazole 20 mg oral enteric coated capsule 1 capsule, By Mouth, 2 times a day, # 180 capsule, 0 Refills, Maintenance, 06/06/22 8:30:00 EDT, [facility]/pharmacy #2339, 157.6, cm, 05/23/22 11:27:00 EDT, [...] tablet, 1 Refills, Maintenance, 06/18/22 14:19:00 EDT, [id number], 157.6, cm, 05/23/22 11:27:00 EDT, Height Start Date: 06/18/22 Status: Ordered Trelegy Ellipta 200 mcg-62.5 mcg-25 mcg/inh inhalation powder 1 puffs, Inhalation, Daily, at the same time every day, # 1 each, 6 Refills, Maintenance, 07/12/22 16:19:00 EDT, Powder, [facility]/pharmacy #[id number], Partial fill upon patient request if the prescription is for a schedule II opioid drug., 1 puffs Inhalation Da... Start Date: 07/12/22 Status: Ordered Tylenol 325 mg oral tablet 325 mg, 1, tablet, By Mouth, 2 times a day, # 60 tablet, Refills 0, Tot. Refills 0, Maintenance, 12/13/16 12:48:45, Route to Pharmacy Electronically, [id number], [id number] Start Date: 12/13/16 Status: Ordered Ventolin HFA 108 mcg/inh inhalation aerosol with adapter 2 puffs, Inhalation, 4 times a day, PRN for wheezing, brand name medically necessary, # 8 Gm, 5 Refills, Maintenance, 12/18/21 12:07:00 EST, Aerosol, [facility]/pharmacy #2339, 157.6, cm, 11/24/21 13:30:00 EDT, Height Start Date: 12/18/21 Status: Ordered Problem List Condition Confirmation Course Effective Dates Status H ealth Status Informant Anxiety Confirmed Active Asthma Confirmed Active Oxygen dependent Confirmed Active Hypertension Confirmed Active Depression, major, in remission Confirmed Active Obese class I Confirmed Active Osteoarthritis Confirmed Active *[facility] [phone] [employer] TRIXIE LEÓN Confirmed Active PTSD (post-traumatic stress [...] Associate Professional Member Role: PCP Address: Address: [address] [place] [id number] Care Team Related Persons Name: STACIE HORTON Address: home [address] [place] [address] Name: STACIE CHARLES Address: home [address] [place] [address] Name: LUCIANO GRIMES Address: [address] [address]
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
--- OUTSIDE RECORDS SUMMARY | 2023-07-07 11:25 | XMS_ITS | Continuity of Care Document ---
Author Organization [facility] Address [address] [place] [address]- Care Team Providers Care Business Performance Advisor Name Role Phone Wm CHAIDEZ, Carmen Harris Primary Care Physician Encounter [facility] Date(s): 07/30/19 - 11/27/19 [facility] [address] [place] [id number]- [facility] Attending Physician: Gabo Hernandez MD Admitting Physician: Gabo Hernandez MD Referring Physician: Carmen Burk NP Allergies, Adverse Reactions, [...] 08/18/19 16:35:00 EDT, Route to Pharmacy Electronically, [facility] #[id number], 157.6, cm, 07/20/19 9:46:00 EDT, Height, 84.9, kg, 1... Start Date: 08/18/19 Status: Ordered anastrozole 1 mg oral tablet 1 tablet = 1 mg, By Mouth, Daily, # 90 tablet, 3 Refills, Maintenance, 07/20/19 10:52:00 EDT, Tablet, [facility] #67776, 157.6, cm, 07/20/19 9:46:00 EDT, Height, 84.9, [...] 11 Refills, Soft Stop, 08/10/19 7:50:00 EDT, [facility] #[id number], TAKE 1 TABLET BY MOUTH TWICE DAILY, 157.6, cm, 07/20/19 9:46:00 EDT, Height, 84.9, kg, 11/18/17 10:16:00 EDT,... Start Date: 08/10/19 Status: Ordered Flonase 50 mcg/inh nasal spray 1 sprays, Nares, Both, 2 times a day, # 1 each, 0 Refills, Maintenance, 03/22/15 15:02:47, [place], 1sprays Nares, Both 2 times a day,x30 days Start Date: 03/22/15 Stop Date: 04/21/15 Status: Ordered ibuprofen 600 mg oral tablet 600 mg, 1, tablet, By Mouth, 2 times a day, # 60 tablet, Refills 0, Tot. Refills 0, Maintenance, 12/13/16 12:53:25, Route to Pharmacy Electronically, [id number], [facility] Start Date: 12/13/16 Status: Ordered Incruse Ellipta 62.5 mcg/inh inhalation powder See Instructions, INHALE 1 PUFF BY MOUTH EVERY 24 HOURS DOSES SHOULD BE TAKEN AT LEAST 24 HOURS APART, # 30 each, 5 Refills, Soft Stop, 10/21/19 16:07:00 EDT, [facility] #69325, 157.6, cm, 07/20/19 9:46:00 EDT, Height, 84.9, kg, 11/18/17 10:... Start Date: 10/21/19 Status: Ordered lisinopril 10 mg oral tablet 10 mg, 1, tablet, By Mouth, Daily, for 90 days, # 90 tablet, Refills 3, Tot. Refills 3, Hard Stop 01/02/20 11:48:55 EST, 01/07/19 11:48:55 EST, Route to Pharmacy Electronically, [id number], [facility] #60739 Start Date: 01/07/19 Stop Date: 01/02/20 Status: Ordered magnesium oxide 400 mg oral tablet 1 tablet = 400 mg, By Mouth, Daily, for 30 days, # 30 tablet, 6 Refills, Acute 02/15/20 10:51:00 EST, 07/20/19 10:51:00 EDT, [facility] #[id number], 157.6, cm, 07/20/19 9:46:00 EDT, Height, 84.9, [...] Replace Required Details, Route to Pharmacy Electronically, [id number], [facility]... Start Date: 01/07/19 Status: Ordered omeprazole 20 mg oral enteric coated capsule 1 capsule, By Mouth, 2 times a day, # 60 capsule, 2 Refills, Maintenance, 10/28/19 8:50:00 EDT, [facility] #[id number], 157.6, cm, 07/20/19 9:46:00 EDT, Height, 84.9, [...] 5 Refills, Soft Stop, 10/21/19 16:40:00 EDT, [facility] #19006, 157.6, cm, 07/20/19 9:46:00 EDT, Height, 84.9, kg, 11/18/17 10:16:00 EDT, Dry Weight Start Date: 10/21/19 Status: Ordered Tylenol 325 mg oral tablet 325 mg, 1, tablet, By Mouth, 2 times a day, # 60 tablet, Refills 0, Tot. Refills 0, Maintenance, 12/13/16 12:48:45, Route to Pharmacy Electronically, [id number], [facility] [address] Start Date: 12/13/16 Status: Ordered Ventolin HFA 108 mcg/inh inhalation aerosol with adapter 2 puffs, Inhalation, 4 times a day, PRN for wheezing, # 8 Gm, 5 Refills, Maintenance, 06/29/19 14:41:00 EDT, Aerosol, [facility] #14272, 157.6, cm, 06/29/19 11:18:00 EDT, Height, 84.9, kg, 11/18/17 10:16:00 EDT, Dry Weight Start Date: 06/29/19 Status: Ordered Wixela Inhub 500 mcg-50 mcg inhalation powder 1 puffs, Inhalation, 2 times a day, # 60 each, 3 Refills, Maintenance, 10/28/19 8:50:00 EDT, [facility] #28716, 30, INHALE 1 PUFF BY MOUTH TWICE DAILY, 157.6, cm, 07/20/19 9:46:00 EDT, Height, 84.9, kg, 11/18/17 10:16:00 EDT, Dry Weight Start Date: 10/28/19 Status: Ordered Problem List Condition Effective Dates Status Health Status Inform ant Anxiety(Confirmed) Active Asthma(Confirmed) Active COPD(Confirmed) Active Oxygen dependent(Confirmed) Active Hypertension(Confirmed) Active Osteoarthritis(Confirmed) Active *[facility] [phone] CARE MANAG ER TRIXIE LEÓN(Confirmed) Active PTSD [...]
--- OUTSIDE RECORDS SUMMARY | 2023-07-07 11:25 | XMS_ITS | Continuity of Care Document ---
Author Organization [facility] Jorje Gallego Shahram Address [address] [place] [address]- Care Team Providers Care Kiosk Sales Representative Name Role Phone Wm CHAIDEZ, Carmen Harris Primary Care Physician Encounter [facility] Date(s): 11/27/21 - 12/27/21 [facility] Jorje Garsialey Adult [address] [place] [address]- Allergies, Adverse Reactions, Alerts Substance Reaction Severity Status codeine Active sulfa drugs rash Active Neosporin Active Tape tape-skin breakdown Active Immunizations Given and Recorded Vaccine Date Status Refusal Reason SARS-CoV-2 mRNA (dqrooep-iwei-xtekq) vax 07/14/21 Given SARS-CoV-2 (COVID-19) mRNA BNT-162b2 [...] Given 1Early/Late Reason: Accommodate D/C 2Admin Note: [facility] info given to patient Medications 02 Rx [...] 5 Refills, Soft Stop, 07/03/21 16:41:00 EDT, [facility] #[id number], TAKE 1 TABLET BY MOUTH TWICE DAILY, [...] 30 days, 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 Start Date: 12/12/21 Status: Ordered lisinopril 10 mg oral tablet 1, tablet, By Mouth, Daily, # 90 tablet, Refills 3, Tot. Refills 3, Maintenance, 12/12/21 8:47:00 EDT, Route to Pharmacy Electronically, [facility]/pharmacy #[id number], 157.6, cm, 11/24/21 13:30:00 EDT, Height Start Date: 12/12/21 Status: Ordered magnesium oxide 400 mg oral tablet 1 tablet = 400 mg, By Mouth, Daily, for 30 days, # 30 tablet, 11 Refills, Acute 12/07/22 8:48:00 EDT, 12/12/21 8:48:00 EDT, [facility]/pharmacy #[id number], 157.6, cm, 11/24/21 13:30:00 EDT, Height [...] 8:48:00 EDT, Route to Pharmacy Electronically, [facility]/pharmacy #2339, 157.6, cm, 11/24/21 13:30:00 EDT, Height Start Date: 12/12/21 Status: Ordered omeprazole 20 mg oral enteric coated capsule 1 capsule, By Mouth, 2 times a day, # 180 capsule, 0 Refills, Maintenance, 12/08/21 9:23:00 EDT, [facility]/pharmacy #2339, Please use this script, 157.6, cm, [...] Refills, 12/12/21 8:49:00 EDT, [facility]/pharmacy #[id number], 157.6, cm, 11/24/21 13:30:00 EDT, Height Start Date: 12/12/21 Status: Ordered traZODone 50 mg oral tablet 50 mg, 1, tablet, By Mouth, Daily at bedtime, # 30 tablet, Refills 6, Tot. Refills 6, Maintenance, 12/12/21 8:50:00 EDT, Route to Pharmacy Electronically, [facility]/pharmacy #[id number], Partial fill upon patient request if the prescription is for a schedule II o... Start Date: 12/12/21 Stop Date: 07/10/22 Status: Ordered Tylenol 325 mg oral tablet 325 mg, 1, tablet, By Mouth, 2 times a day, # 60 tablet, Refills 0, Tot. Refills 0, Maintenance, 12/13/16 12:48:45, Route to Pharmacy Electronically, [id number], [facility] Start Date: 12/13/16 Status: Ordered Ventolin HFA 108 mcg/inh inhalation aerosol with adapter 2 puffs, Inhalation, 4 times a day, PRN for wheezing, brand name medically necessary, # 8 Gm, 5 Refills, Maintenance, 12/18/21 12:07:00 EST, Aerosol, [facility]/pharmacy #2339, 157.6, cm, 11/24/21 13:30:00 EDT, Height Start Date: 12/18/21 Status: Ordered Wixela Inhub 500 mcg-50 mcg inhalation powder 1 puffs, Inhalation, 2 times a day, # 60 each, 5 Refills, 12/12/21 8:47:00 EDT, [facility]/pharmacy #2339,30, 1 puffs Inhalation 2 times a day, 157.6, cm, 11/24/21 13:30:00 EDT, Height Start Date: 12/12/21 Status: Ordered Problem List Condition Confirmation Course Effective Dates Status H ealth Status Informant Anxiety Confirmed Active Asthma Confirmed Active Oxygen dependent Confirmed Active Hypertension Confirmed Active Depression, major, in remission Confirmed Active Obese class II Confirmed Active Osteoarthritis Confirmed Active *[facility] [phone] 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
--- OUTSIDE RECORDS SUMMARY | 2023-07-07 11:25 | XMS_ITS | Continuity of Care Document ---
Author Organization [facility] Jorje Gallego Shahram Address [address] [place] [address]- Care Team Providers Care Cracking Machine Operator Name Role Phone Wm CHAIDEZ, Carmen Harris Primary Care Physician [phone] Encounter [facility] Date(s): 05/14/22 - 06/13/22 [facility] Jorje Garsialey Adult [address] [place] [address]- Allergies, Adverse Reactions, Alerts Substance Reaction Severity Status codeine Active sulfa drugs rash Active Neosporin Active Tape tape-skin breakdown Active Immunizations Given and Recorded Vaccine Date Status Refusal Reason SARS-CoV-2 mRNA (vuwqief-glsq-saayi) vax 07/14/21 Given SARS-CoV-2 (COVID-19) mRNA BNT-162b2 vac 04/07/20 Recorded SARS-CoV-2 (COVID-19) mRNA BNT-162b2 vac 03/17/20 Recorded influenza virus vaccine, inactivated 01/07/19 Give n influenza virus vaccine, inactivated 1 11/14/16 Gi melvina influenza virus vaccine, inactivated 11/29/15 Benton rded influenza virus vaccine, inactivated 2 12/14/14 Gi melvina influenza virus vaccine, inactivated 11/25/13 Bneton rded influenza virus vaccine, inactivated 11/04/12 Benton rded influenza virus vaccine, inactivated 11/15/11 Benton rded pneumococcal 23-valent vaccine 01/09/16 Given pneumococcal 23-valent vaccine 11/25/13 Recorded pneumococcal 23-valent vaccine 10/13/09 Recorded pneumococcal 23-valent vaccine 01/08/05 Recorded tetanus/diphtheria/pertussis, acel(Tdap) 05/10/14 Given 1Early/Late Reason: Accommodate D/C 2Admin Note: [facility] info given to patient Medications 02 [...] 5 Refills, Soft Stop, 07/03/21 16:41:00 EDT, [facility] #[id number], TAKE 1 TABLET BY MOUTH TWICE DAILY, [...] Refills, Maintenance, 12/12/21 8:50:00 EDT, Powder, [facility]/pharmacy #2339, Partial fill upon patient request if the prescription is for a schedule II o... Start Date: 12/12/21 Status: Ordered losartan 50 mg oral tablet 50 mg, 1, tablet, By Mouth, Daily, # 30 tablet, Refills 11, Tot. Refills 11, Maintenance, 05/23/22 11:59:00 EDT, Route to Pharmacy Electronically, [facility]/pharmacy #2339, Partial fill upon patient request if the prescription is for a schedule II opioid dr... Start Date: 05/23/22 Status: Ordered magnesium oxide 400 mg oral tablet 1 tablet = 400 mg, By Mouth, Daily, for 30 days, # 30 tablet, 11 Refills, Acute 12/07/22 8:48:00 EDT, 12/12/21 8:48:00 EDT, [facility]/pharmacy #2339, 157.6, cm, 11/24/21 13:30:00 EDT, Height [...] 12/12/21 8:48:00 EDT, Route to Pharmacy Electronically, [id number], 157.6, cm, 11/24/21 13:30:00 EDT, Height Start Date: 12/12/21 Status: Ordered omeprazole 20 mg oral enteric coated capsule 1 capsule, By Mouth, 2 times a day, # 180 capsule, 0 Refills, Maintenance, 06/06/22 8:30:00 EDT, [facility] 157.6, cm, 05/23/22 11:27:00 EDT, Height [...] 45 tablet, 5 Refills, 12/12/21 8:49:00 EDT, [facility] 157.6, cm, 11/24/21 13:30:00 EDT, Height Start Date: 12/12/21 Status: Ordered Tylenol 325 mg oral tablet 325 mg, 1, tablet, By Mouth, 2 times a day, # 60 tablet, Refills 0, Tot. 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
--- OUTSIDE RECORDS SUMMARY | 2023-07-07 11:25 | XMS_ITS | Continuity of Care Document ---
Author Organization [facility] ter Address [address] [place] [address]- Care Team Providers Care Inspector Sheet Metal Parts Name Role Phone Wm CHAIDEZ, Carmen Harris Primary Care Physician [phone] Encounter [facility] Date(s): 07/04/21 - 08/27/[address] [address] Attending Physician: Carmen Burk NP Admitting Physician: Carmen Burk NP Referring Physician: Wm CHAIDEZ, Carmen Harris Allergies, Adverse Reactions, Alerts Substance Reaction Severity Status codeine Active Neosporin Active Tape tape-skin breakdown Active sulfa drugs rash Active Immunizations Given and Recorded Vaccine Date Status Refusal Reason SARS-CoV-2 mRNA (ibzekeo-vfom-acgvz) vax 07/14/21 Given SARS-CoV-2 (COVID-19) mRNA BNT-162b2 [...] D/C 2Admin Note: [facility] info given to patient Medications albuterol 0.083% inhalation solution 3 mL = 2.5 mg, Inhalation, Every 6 hours, PRN for wheezing, # 60 each, 4 Refills, Maintenance, 05/01/17 11:34:24, Solution Start Date: 05/01/17 Status: Ordered anastrozole 1 mg oral tablet 1 tablet, By Mouth, Daily, for 90 days, # 90 tablet, 3 Refills, Physician Stop 04/02/22 10:38:00 EST, 04/07/21 10:38:00 EST, [facility] #[id number], 157.6, cm, 10/14/20 13:53:00 EDT, Height Start Date: 04/07/21 Stop Date: 04/02/22 Status: Ordered Calcitrate with D 315 mg-250 intl units oral tablet See Instructions, TAKE 1 TABLET BY MOUTH TWICE DAILY, # 60 tablet, 5 Refills, Soft Stop, 07/03/21 16:41:00 EDT, [facility] #[id number], TAKE 1 TABLET BY MOUTH TWICE DAILY, [...] 5 Refills, Maintenance, 07/14/21 13:10:00 EDT, Tablet, [facility] #[id number], Partial fill upon patient request if the prescription is for a schedule II opioid drug., 1 tablet By Mouth Daily, 157.6, cm, 06... Start Date: 07/14/21 Status: Ordered hydrOXYzine pamoate 25 mg oral capsule 1 capsule, By Mouth, 2 times a day, PRN NEEDED FOR ANXIETY, for 30 days, schedule physical with Carmen Burk MANAGER MANAGEMENT, # 60 capsule, 5 Refills, Acute 12/30/21 9:11:00 EST, 07/03/21 9:11:00 EDT, [facility] #[id number], 157.6, cm, 10/14/20 13:53:00... Start Date: 07/03/21 Stop Date: 12/30/21 Status: Ordered lisinopril 10 mg oral tablet 1, tablet, By Mouth, Daily, # 90 tablet, Refills 3, Tot. Refills 3, Maintenance, 07/05/21 8:57:00 EDT, Route to Pharmacy Electronically, [facility] #[id number], 157.6, cm, 10/14/20 13:53:00 EDT,Height Start Date: 07/05/21 Status: Ordered magnesium oxide 400 mg oral tablet 1 tablet = 400 mg, By Mouth, Daily, for 30 days, # 30 tablet, 11 Refills, Acute 07/09/22 13:16:00 EDT, 07/14/21 13:16:00 EDT, [facility][id number], 157.6, cm, 07/14/21 12:48:00 EDT, Height Start [...] tablet, Refills 1, Route to Pharmacy Electronically, [facility] #[id number], 157.6, cm, 10/14/20 13:53:00 EDT, Height Start Date: 03/19/21 Status: Ordered omeprazole 20 mg oral enteric coated capsule 1 capsule, By Mouth, 2 times a day, # 180 capsule, 0 Refills, Maintenance, 07/03/21 16:41:00 EDT, [facility] #[id number], Please use this script, 157.6, cm, 10/14/20 [...] 45 tablet, 5 Refills, 07/05/21 8:57:00 EDT, [facility][id number], 157.6, cm, 10/14/20 13:53:00 EDT, Height Start Date: 07/05/21 Status: Ordered traZODone 50 mg oral tablet 50 mg, 1, tablet, By Mouth, Daily at bedtime, # 30 tablet, Refills 6, Tot. Refills 6, Maintenance, 07/14/21 13:05:00 EDT, Route to Pharmacy Electronically, [facility][id number], Partial fill upon patient request if the prescription is for a gloria... Start Date: 07/14/21 Stop Date: 02/09/22 Status: Ordered Tylenol 325 mg oral tablet 325 mg, 1, tablet, By Mouth, 2 times a day, # 60 tablet, Refills 0, Tot. Refills 0, Maintenance, 12/13/16 12:48:45, Route to Pharmacy Electronically, [id number], [facility] Start Date: 12/13/16 Status: Ordered Ventolin HFA 108 mcg/inh inhalation aerosol with adapter 2 puffs, Inhalation, 4 times a day, PRN for wheezing, # 8 Gm, 5 Refills, Maintenance, 05/03/21 10:58:00 EDT, Aerosol, [facility]66594, 157.6, cm, 10/14/20 13:53:00 EDT, Height Start Date: 05/03/21 Status: Ordered Wixela Inhub 500 mcg-50 mcg inhalation powder 1 puffs, Inhalation, 2 times a day, # 60 each, 5 Refills, [facility] #[id number], 30, INHALE 1PUFF BY MOUTH TWICE DAILY, 157.6, cm, 10/14/20 13:53:00 EDT, Height Start Date: 06/01/21 Status: Ordered Problem List Condition Effective Dates Status Health Status Inform ant Anxiety(Confirmed) Active Asthma(Confirmed) Active Oxygen dependent(Confirmed) Active Hypertension(Confirmed) Active Depression, major, in remission(Confirmed) Active Obese class II(Confirmed) Active Osteoarthritis(Confirmed) Active *[facility] [phone] CARE MANAG ER TRIXIE LEÓN(Confirmed) Active PTSD [...]
--- OUTSIDE RECORDS SUMMARY | 2023-07-07 11:25 | XMS_ITS | Continuity of Care Document ---
Author Organization [facility] Address [address] [place] [address]- Care Team Providers Care Platen Grinder Name Role Phone Wm CHAIDEZ, Carmen Harris Primary Care Physician [phone] [place] [facility] Date(s): 11/09/22 - 02/28/23 [facility] [address] [place] [id number] Attending Physician: Bella Shelton MD Admitting Physician: Bella Shelton MD Referring Physician: Carmen Burk NP Allergies, Adverse Reactions, Alerts Substance Reaction Severity Status codeine Active sulfa drugs rash Active Neosporin Active Tape tape-skin breakdown Active Immunizations Given and Recorded Vaccine Date Status Refusal Reason SARS-CoV-2 mRNA (ajjgyzc-dqkb-tckum) vax 07/14/21 Given SARS-CoV-2 (COVID-19) mRNA BNT-162b2 [...] D/C 2Admin Note: [facility] info given to patient Medications [...] 5 Refills, Maintenance, 01/04/23 13:28:00 EST, Solution, [facility], Partial fill upon patient request if the prescription is for a schedule II opioid drug., 157.6,... Start Date: 01/04/23 Status: Ordered albuterol 0.083% inhalation solution 3 mL = 2.5 mg, Inhalation, Every 6 hours, PRN for wheezing, # 60 each, 4 Refills, Maintenance, 12/12/21 8:44:00 EDT, Solution, [facility]/pharmacy #2339, 157.6, cm, 11/24/21 13:30:00 EDT, Height Start Date: 12/12/21 Status: Ordered azithromycin 500 mg oral tablet 1 tablet = 500 mg, By Mouth, Every Saturday, Saturday and Saturday, for 30 days, j44.9, # 13 tablet, 6Refills, Acute 08/06/23 13:25:00 EDT, 01/08/23 13:25:00 EST, Tablet, [facility], Partial fill upon patient request if the prescription... Start Date: 01/08/23 Stop Date: 08/06/23 Status: Ordered azithromycin 500 mg oral tablet 1 tablet = 500 mg, By Mouth, Every Saturday, Saturday and Saturday, for 180 days, # 78 tablet, 1 Refills, Acute 11/19/23 10:09:00 EDT, 11/24/22 10:09:00 EDT, Tablet, [facility]/pharmacy #2339, Partial fill upon patient request if the prescription is for a sched... Start Date: 11/24/22 Stop Date: 11/19/23 Status: Ordered Calcitrate with D 315 mg-250 intl units oral tablet See Instructions, TAKE 1 TABLET BY MOUTH TWICE DAILY, # 60 tablet, 5 Refills, Soft Stop, 07/03/21 16:41:00 EDT, [facility] #[id number], TAKE 1 TABLET BY MOUTH TWICE DAILY, 157.6, cm, 10/14/20 13:53:00 EDT, Height Start Date: 07/03/21 Status: Ordered calcium (as citrate)-vitamin D 315 mg-250 intl units oral tablet 1 tablet, By Mouth, 2 times a day, # 60 tablet, 6 Refills, Maintenance, 01/07/23 6:56:00 EST, Tablet, [facility], Partial fill upon patient request [...] 5 Refills, Maintenance, 05/08/22 8:43:00 EDT, Tablet, [facility]/pharmacy #[id number], Partial fill upon patient request if the [...] capsule, 1 Refills, Maintenance, 01/07/23 6:54:00 EST, [facility], 157.6, cm, 11/26/22 9:24:00 EDT, Height Start Date: 01/07/23 Status: Ordered losartan 50 mg oral tablet 50 mg, 1, tablet, By Mouth, Daily, # 30 tablet, Refills 11, Tot. Refills 11, Maintenance, 01/07/23 6:54:00 EST, Route to Pharmacy Electronically, [facility], Partial fill upon patient request [...] 01/07/23 6:53:00 EST, Route to Pharmacy Electronically, [facility], 157.6, cm, 11/26/22 9:24:00EDT, Height Start [...] capsule, 0 Refills, Maintenance, 01/07/23 6:53:00 EST, [facility], 157.6, cm, 11/26/22 9:24:00 EDT, [...] tablet, 1 Refills, Maintenance, 01/07/23 6:53:00 EST, [facility], 157.6, cm, 11/26/22 9:24:00 EDT, Height Start Date: 01/07/23 Status: Ordered Trelegy Ellipta 200 mcg-62.5 mcg-25 mcg/inh inhalation powder 1 puffs, Inhalation, Daily, at the same time every day, j44.9, # 1 each, 6 Refills, Maintenance, 10/10/22 15:08:00 EDT, Powder, [facility], Partial fill upon patient request if the prescription is for a schedule II opioid drug., 1 puf... Start Date: 10/10/22 Status: Ordered Tylenol 325 mg oral tablet 325 mg, 1, tablet, By Mouth, 2 times a day, # 60 tablet, Refills 0, Tot. Refills 0, Maintenance, 12/13/16 12:48:45, Route to Pharmacy Electronically, [id number], [facility] [address] Start Date: 12/13/16 Status: Ordered Ventolin HFA 108 mcg/inh inhalation aerosol with adapter 2 puffs, Inhalation, 4 times a day, PRN for wheezing, brand name medically necessary, # 18 Gm, 5 Refills, Maintenance, 01/04/23 13:28:00 EST, Aerosol, [facility], 157.6, cm, 239:24:00 EDT, Height Start Date: 01/04/23 Status: Ordered Problem List Condition Confirmation Course Effective Dates Status H ealth Status Informant Anxiety Confirmed Active Asthma Confirmed Active Oxygen dependent Confirmed Active Hypertension Confirmed Active Depression, major, in remission Confirmed Active Osteoarthritis Confirmed Active *[facility] [phone] 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
--- OUTSIDE RECORDS SUMMARY | 2023-07-07 11:25 | XMS_ITS | Continuity of Care Document ---
Author Organization [facility] Shahram Address [address] [place] [address]- Care Team Providers Care Gum Remover Name Role Phone Wm CHAIDEZ, Carmen Harris Primary Care Physician Encounter [facility] Date(s): 05/28/20 - 10/16/20 [facility] Adult [address] [place] [address]- Attending Physician: Wm CHAIDEZ, Carmen Harris Allergies, [...] Mouth, Daily, # 90 tablet, 0 Refills, [facility] #[id number], 157.6, cm, 217:36:00 EST, Height Start Date: 10/14/20 Status: Ordered Calcitrate with D 315 mg-250 intl units oral tablet See Instructions, TAKE 1 TABLET BY MOUTH TWICE DAILY, # 60 tablet, 5 Refills, Soft Stop, 07/17/20 12:20:00 EDT, [facility] #[id number], TAKE 1 TABLET BY MOUTH TWICE DAILY, [...] each, 0 Refills, Maintenance, 10/14/20 13:47:00 EDT, [facility] #[id number], Partial fill upon patient request if the [...] Acute 04/12/21 13:40:00 EST, 10/14/20 13:40:00 EDT, [facility] #81281, 157.6, cm, 10/14/20 13:12:00 EDT, Height Start Date: 10/14/20 Stop Date: 04/12/21 Status: Ordered lisinopril 10 mg oral tablet 1, tablet, By Mouth, Daily, # 90 tablet, Refills 0, Tot. Refills 0, Maintenance, 06/23/20 11:04:00 EDT, Route to Pharmacy Electronically, [id number], 157.6, cm, 02/17/20 7:36:00 EST,Height Start Date: 06/23/20 Status: Ordered melatonin 10 mg oral tablet, disintegrating 1 tablet = 10 mg, By Mouth, Daily at bedtime, for 30 days, # 30 tablet, 1 Refills, Acute 12/13/20 13:44:00 EDT, 10/14/20 13:44:00 EDT, [facility] #[id number], Partial fill upon patient request if the [...] Replace Required Details, Route to Pharmacy Electronically, [facility] #[id number], 157.6, cm, 0... Start Date: 09/13/20 Status: Ordered omeprazole 20 mg oral enteric coated capsule 1 capsule, By Mouth, 2 times a day, # 60 capsule, 2 Refills, Maintenance, 10/14/20 13:40:00 EDT, [facility] #[id number], 157.6, cm, 10/14/20 13:12:00 EDT, Height Start [...] 1 Refills, Soft Stop, 09/13/20 10:38:00 EDT, [facility] #[id number], 157.6, cm, 02/17/20 7:36:00 EST, Height Start Date: 09/13/20 Status: Ordered Tylenol 325 mg oral tablet 325 mg, 1, tablet, By Mouth, 2 times a day, # 60 tablet, Refills 0, Tot. Refills 0, Maintenance, 12/13/16 12:48:45, Route to Pharmacy Electronically, [id number], [id number] Start Date: 12/13/16 Status: Ordered Ventolin HFA 108 mcg/inh inhalation aerosol with adapter 2 puffs, Inhalation, 4 times a day, PRN for wheezing, # 8 Gm, 5 Refills, Maintenance, 06/29/19 14:41:00 EDT, Aerosol, [facility] #[id number], 157.6, cm, 06/29/19 11:18:00 EDT, Height, 84.9, kg, 11/18/17 10:16:00 EDT, Dry Weight Start Date: 06/29/19 Status: Ordered Wixela Inhub 500 mcg-50 mcg inhalation powder 1 puffs, Inhalation, 2 times a day, # 60 each, 5 Refills, Maintenance, 05/28/20 9:07:00 EDT, [facility] #[id number], 30, 1 puffs Inhalation 2 times a day, 157.6, cm, 02/17/20 7:36:00 EST, Height Start Date: 05/28/20 Status: Ordered Problem List Condition Effective Dates Status Health Status Inform ant Anxiety(Confirmed) Active Asthma(Confirmed) Active COPD(Confirmed) Active Oxygen dependent(Confirmed) Active Hypertension(Confirmed) Active Depression, major, in remission(Confirmed) Active Osteoarthritis(Confirmed) Active *[facility] [phone] 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
--- OUTSIDE RECORDS SUMMARY | 2023-07-07 11:25 | XMS_ITS | Continuity of Care Document ---
Author Organization [facility] Address [address] [address]- Care Team Providers Care Carbon Cleaner Name Role Phone Wm CHAIDEZ, Carmen Harris Primary Care Physician Encounter [facility] Date(s): 10/28/19 - 11/27/19 [facility] [address] [place] [address] [facility] Attending Physician: Admtr, Ar8 Admitting Physician: Admtr, [...] 08/18/19 16:35:00 EDT, Route to Pharmacy Electronically, [facility] #[id number], 157.6, cm, 07/20/19 9:46:00 EDT, Height, 84.9, kg, 1... Start Date: 08/18/19 Status: Ordered anastrozole 1 mg oral tablet 1 tablet = 1 mg, By Mouth, Daily, # 90 tablet, 3 Refills, Maintenance, 07/20/19 10:52:00 EDT, Tablet, [facility] #[id number], 157.6, cm, 07/20/19 9:46:00 EDT, Height, 84.9, [...] 11 Refills, Soft Stop, 08/10/19 7:50:00 EDT, [facility] #[id number], TAKE 1 TABLET BY MOUTH TWICE DAILY, 157.6, cm, 07/20/19 9:46:00 EDT, Height, 84.9, kg, 11/18/17 10:16:00 EDT,... Start Date: 08/10/19 Status: Ordered Flonase 50 mcg/inh nasal spray 1 sprays, Nares, Both, 2 times a day, # 1 each, 0 Refills, Maintenance, 03/22/15 15:02:47, [place], 1sprays Nares, Both 2 times a day,x30 days Start Date: 03/22/15 Stop Date: 04/21/15 Status: Ordered ibuprofen 600 mg oral tablet 600 mg, 1, tablet, By Mouth, 2 times a day, # 60 tablet, Refills 0, Tot. Refills 0, Maintenance, 12/13/16 12:53:25, Route to Pharmacy Electronically, [id number], [facility] Start Date: 11/2/17 Status: Ordered Incruse Ellipta 62.5 mcg/inh inhalation powder See Instructions, INHALE 1 PUFF BY MOUTH EVERY 24 HOURS DOSES SHOULD BE TAKEN AT LEAST 24 HOURS APART, # 30 each, 5 Refills, Soft Stop, 10/21/19 16:07:00 EDT, [facility] #08833, 157.6, cm, 07/20/19 9:46:00 EDT, Height, 84.9, kg, 11/18/17 10:... Start Date: 10/21/19 Status: Ordered lisinopril 10 mg oral tablet 10 mg, 1, tablet, By Mouth, Daily, for 90 days, # 90 tablet, Refills 3, Tot. Refills 3, Hard Stop 01/02/20 11:48:55 EST, 01/07/19 11:48:55 EST, Route to Pharmacy Electronically, [id number], [facility] #[id number] Start Date: 01/07/19 Stop Date: 01/02/20 Status: Ordered magnesium oxide 400 mg oral tablet 1 tablet = 400 mg, By Mouth, Daily, for 30 days, # 30 tablet, 6 Refills, Acute 02/15/20 10:51:00 EST, 07/20/19 10:51:00 EDT, [facility] #32934, 157.6, cm, 07/20/19 9:46:00 EDT, Height, 84.9, [...] Replace Required Details, Route to Pharmacy Electronically, [id number], [facility]... Start Date: 01/07/19 Status: Ordered omeprazole 20 mg oral enteric coated capsule 1 capsule, By Mouth, 2 times a day, # 60 capsule, 2 Refills, Maintenance, 10/28/19 8:50:00 EDT, [facility] #27470, 157.6, cm, 07/20/19 9:46:00 EDT, Height, 84.9, [...] 5 Refills, Soft Stop, 10/21/19 16:40:00 EDT, [facility] #80115, 157.6, cm, 07/20/19 9:46:00 EDT, Height, 84.9, kg, 11/18/17 10:16:00 EDT, Dry Weight Start Date: 10/21/19 Status: Ordered Tylenol 325 mg oral tablet 325 mg, 1, tablet, By Mouth, 2 times a day, # 60 tablet, Refills 0, Tot. Refills 0, Maintenance, 12/13/16 12:48:45, Route to Pharmacy Electronically, [id number], [facility] [address]267 Start Date: 12/13/16 Status: Ordered Ventolin HFA 108 mcg/inh inhalation aerosol with adapter 2 puffs, Inhalation, 4 times a day, PRN for wheezing, # 8 Gm, 5 Refills, Maintenance, 06/29/19 14:41:00 EDT, Aerosol, [facility] #42068, 157.6, cm, 06/29/19 11:18:00 EDT, Height, 84.9, kg, 11/18/17 10:16:00 EDT, Dry Weight Start Date: 06/29/19 Status: Ordered Wixela Inhub 500 mcg-50 mcg inhalation powder 1 puffs, Inhalation, 2 times a day, # 60 each, 3 Refills, Maintenance, 10/28/19 8:50:00 EDT, [facility] #03146, 30, INHALE 1 PUFF BY MOUTH TWICE DAILY, 157.6, cm, 07/20/19 9:46:00 EDT, Height, 84.9, kg, 11/18/17 10:16:00 EDT, Dry Weight Start Date: 10/28/19 Status: Ordered Problem List Condition Effective Dates Status Health Status Inform ant Anxiety(Confirmed) Active Asthma(Confirmed) Active COPD(Confirmed) Active Oxygen dependent(Confirmed) Active Hypertension(Confirmed) Active Osteoarthritis(Confirmed) Active *[facility] [phone] CARE MANAG ER TRIXIE LEÓN(Confirmed) Active PTSD [...]
--- OUTSIDE RECORDS SUMMARY | 2023-07-07 11:25 | XMS_ITS | Continuity of Care Document ---
Author Organization [facility] ter Address [address] [place] [address]- Care Team Providers Care Coater Slate Name Role Phone Wm CHAIDEZ, Carmen Harris Primary Care Physician [phone] [place] [facility] Date(s): 09/15/22 - 11/25/[address] [address] Attending Physician: Jerald Monzon MD Admitting Physician: Jerald Monzon MD Referring Physician: Bella Shelton MD Allergies, Adverse Reactions, Alerts Substance Reaction Severity Status codeine Active sulfa drugs rash Active Neosporin Active Tape tape-skin breakdown Active Immunizations Given and Recorded Vaccine Date Status Refusal Reason SARS-CoV-2 mRNA (xzhxhbx-gzyy-bsvdh) vax 07/14/21 Given SARS-CoV-2 (COVID-19) mRNA BNT-162b2 [...] Given 1Early/Late Reason: Accommodate D/C 2Admin Note: [facility] info given to patient Medications [...] Date: 12/12/21 Stop Date: 12/07/22 Status: Ordered azithromycin 500 mg oral tablet 1 tablet = 500 mg, By Mouth, Every Saturday, Saturday and Saturday, for 180 days, # 78 tablet, 1 Refills, Acute 11/19/23 10:09:00 EDT, 11/24/22 10:09:00 EDT, Tablet, [facility], Partial fill upon patient request if the prescription is for a sched... Start Date: 11/24/22 Stop Date: 11/19/23 Status: Ordered Calcitrate with D 315 mg-250 intl units oral tablet See Instructions, TAKE 1 TABLET BY MOUTH TWICE DAILY, # 60 tablet, 5 Refills, Soft Stop, 07/03/21 16:41:00 EDT, [facility] #[id number], TAKE 1 TABLET BY MOUTH TWICE DAILY, [...] Refills, Maintenance, 05/08/22 8:43:00 EDT, Tablet, [facility] #2339, Partial fill upon [...] capsule, 1 Refills, Maintenance, 06/18/22 14:19:00 EDT, [facility] 03801, 157.6, cm, 05/23/22 11:27:00 EDT, Height Start [...] 12/07/22 8:48:00 EDT, 12/12/21 8:48:00 EDT, [facility]/pharmacy #2339, 157.6, cm, [...] 06/17/22 9:57:00 EDT, Route to Pharmacy Electronically, [facility] 57361, 157.6, cm, 05/23/22 11:27:00 EDT, Height Start Date: 06/17/22 Status: Ordered omeprazole 20 mg oral enteric coated capsule 1 capsule, By Mouth, 2 times a day, # 180 capsule, 0 Refills, Maintenance, 09/09/22 5:26:00 EDT, [facility] 18968, 157.6, cm, 07/12/22 16:25:00 EDT, Height Start Date: 09/09/22 Status: Ordered Portable Nebulizer and supplies Portable [...] 1 Refills, Maintenance, 06/18/22 14:19:00 EDT, [id number], 157.6, cm, 05/23/22 11:27:00 EDT, Height Start Date: 06/18/22 Status: Ordered Trelegy Ellipta 200 mcg-62.5 mcg-25 mcg/inh inhalation powder 1 puffs, Inhalation, Daily, at the same time every day, j44.9, # 1 each, 6 Refills, Maintenance, 10/10/22 15:08:00 EDT, Powder, [facility], Partial fill upon patient request if the prescription is for a schedule II opioid drug., 1 puf... Start Date: 10/10/22 Status: Ordered Tylenol 325 mg oral tablet 325 mg, 1, tablet, By Mouth, 2 times a day, # 60 tablet, Refills 0, Tot. Refills 0, Maintenance, 12/13/16 12:48:45, Route to Pharmacy Electronically, [id number], [facility] [address] Start Date: 12/13/16 Status: Ordered Ventolin HFA 108 mcg/inh inhalation aerosol with adapter 2 puffs, Inhalation, 4 times a day, PRN for wheezing, brand name medically necessary, # 8 Gm, 5 Refills, Maintenance, 12/18/21 12:07:00 EST, Aerosol, [facility]/pharmacy #2339, 157.6, cm, 11/24/21 13:30:00 EDT, Height Start Date: 12/18/21 Status: Ordered Problem List Condition Confirmation Course Effective Dates Status H ealth Status Informant Anxiety Confirmed Active Asthma Confirmed Active Oxygen dependent Confirmed Active Hypertension Confirmed Active Depression, major, in remission Confirmed Active Osteoarthritis Confirmed Active *[facility] [phone] 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
--- OUTSIDE RECORDS SUMMARY | 2023-07-07 11:25 | XMS_ITS | Continuity of Care Document ---
Author Organization [facility] Julián Shahram Address [address] [place] [address]- Care Team Providers Care Node Js Developer Name Role Phone Wm CHAIDEZ, Carmen Harris Primary Care Physician [phone] Encounter [facility] Date(s): 07/14/21 - 08/13/21 [facility] Jorje Garsialey Adult [address] [place] [address]- Attending Physician: Admtr, Ar8 Admitting Physician: Admtr, Ar8 Referring Physician: Admtr, Ar8 Allergies, Adverse Reactions, Alerts Substance Reaction Severity Status codeine Active Neosporin Active Tape tape-skin breakdown Active sulfa drugs rash Active Immunizations Given and Recorded Vaccine Date Status Refusal Reason SARS-CoV-2 mRNA (ptxbied-tlra-uegiz) vax 07/14/21 Given SARS-CoV-2 (COVID-19) mRNA BNT-162b2 [...] Given 1Early/Late Reason: Accommodate D/C 2Admin Note: [facility] info given to patient Medications albuterol 0.083% inhalation solution 3 mL = 2.5 mg, Inhalation, Every 6 hours, PRN for wheezing, # 60 each, 4 Refills, Maintenance, 05/01/17 11:34:24, Solution Start Date: 05/01/17 Status: Ordered anastrozole 1 mg oral tablet 1 tablet, By Mouth, Daily, for 90 days, # 90 tablet, 3 Refills, Physician Stop 04/02/22 10:38:00 EST, 04/07/21 10:38:00 EST, [facility] #[id number], 157.6, cm, 10/14/20 13:53:00 EDT, Height Start Date: 04/07/21 Stop Date: 04/02/22 Status: Ordered Calcitrate with D 315 mg-250 intl units oral tablet See Instructions, TAKE 1 TABLET BY MOUTH TWICE DAILY, # 60 tablet, 5 Refills, Soft Stop, 07/03/21 16:41:00 EDT, [facility] #27312, TAKE 1 TABLET BY MOUTH TWICE DAILY, [...] 5 Refills, Maintenance, 07/14/21 13:10:00 EDT, Tablet, [facility] #47505, Partial fill upon patient request if the prescription is for a schedule II opioid drug., 1 tablet By Mouth Daily, 157.6, cm, 06... Start Date: 07/14/21 Status: Ordered hydrOXYzine pamoate 25 mg oral capsule 1 capsule, By Mouth, 2 times a day, PRN NEEDED FOR ANXIETY, for 30 days, schedule physical with Carmen Burk HOSPITAL RECEPTIONIST, # 60 capsule, 5 Refills, Acute 12/30/21 9:11:00 EST, 07/03/21 9:11:00 EDT, [facility] #67536, 157.6, cm, 10/14/20 13:53:00... Start Date: 07/03/21 Stop Date: 12/30/21 Status: Ordered lisinopril 10 mg oral tablet 1, tablet, By Mouth, Daily, # 90 tablet, Refills 3, Tot. Refills 3, Maintenance, 07/05/21 8:57:00 EDT, Route to Pharmacy Electronically, [facility] #01563, 157.6, cm, 10/14/20 13:53:00 EDT,Height Start Date: 07/05/21 Status: Ordered magnesium oxide 400 mg oral tablet 1 tablet = 400 mg, By Mouth, Daily, for 30 days, # 30 tablet, 11 Refills, Acute 07/09/22 13:16:00 EDT, 07/14/21 13:16:00 EDT, [facility] #85161, 157.6, cm, 07/14/21 12:48:00 EDT, Height Start [...] tablet, Refills 1, Route to Pharmacy Electronically, [facility] #13166, 157.6, cm, 10/14/20 13:53:00 EDT, Height Start Date: 03/19/21 Status: Ordered omeprazole 20 mg oral enteric coated capsule 1 capsule, By Mouth, 2 times a day, # 180 capsule, 0 Refills, Maintenance, 07/03/21 16:41:00 EDT, [facility] #78921, Please use this script, 157.6, cm, 10/14/20 [...] 45 tablet, 5 Refills, 07/05/21 8:57:00 EDT, [facility] #09119, 157.6, cm, 10/14/20 13:53:00 EDT, Height Start Date: 07/05/21 Status: Ordered traZODone 50 mg oral tablet 50 mg, 1, tablet, By Mouth, Daily at bedtime, # 30 tablet, Refills 6, Tot. Refills 6, Maintenance, 07/14/21 13:05:00 EDT, Route to Pharmacy Electronically, [facility] #79573, Partial fill upon patient request if the prescription is for a gloria... Start Date: 07/14/21 Stop Date: 02/09/22 Status: Ordered Tylenol 325 mg oral tablet 325 mg, 1, tablet, By Mouth, 2 times a day, # 60 tablet, Refills 0, Tot. Refills 0, Maintenance, 12/13/16 12:48:45, Route to Pharmacy Electronically, [id number], [facility] [address] Start Date: 12/13/16 Status: Ordered Ventolin HFA 108 mcg/inh inhalation aerosol with adapter 2 puffs, Inhalation, 4 times a day, PRN for wheezing, # 8 Gm, 5 Refills, Maintenance, 05/03/21 10:58:00 EDT, Aerosol, [facility] #77950, 157.6, cm, 10/14/20 13:53:00 EDT, Height Start Date: 05/03/21 Status: Ordered Wixela Inhub 500 mcg-50 mcg inhalation powder 1 puffs, Inhalation, 2 times a day, # 60 each, 5 Refills, [facility] #92335, 30, INHALE 1PUFF BY MOUTH TWICE DAILY, 157.6, cm, 10/14/20 13:53:00 EDT, Height Start Date: 06/01/21 Status: Ordered Problem List Condition Effective Dates Status Health Status Inform ant Anxiety(Confirmed) Active Asthma(Confirmed) Active Oxygen dependent(Confirmed) Active Hypertension(Confirmed) Active Depression, major, in remission(Confirmed) Active Obese class II(Confirmed) Active Osteoarthritis(Confirmed) Active *[facility] [phone] CARE MANAG ER TRIXIE LEÓN(Confirmed) Active PTSD [...]
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
--- OUTSIDE RECORDS SUMMARY | 2023-07-07 11:25 | XMS_ITS | Continuity of Care Document ---
Author Organization [facility] Julián Shahram Address [address] [place] [address]- Care Team Providers Care Bee Robber Name Role Phone Wm CHAIDEZ, Carmen Harris Primary Care Physician Encounter [facility] Date(s): 01/14/21 - 05/14/21 [facility] Jorje Garsialey Adult [address] [place] [address]- Attending Physician: Carmen Burk NP Referring Physician: [...] Stop 04/02/22 10:38:00 EST, 04/07/21 10:38:00 EST, [facility] #[id number], 157.6, cm, 10/14/20 13:53:00 EDT, Height Start Date: 04/07/21 Stop Date: 04/02/22 Status: Ordered Calcitrate with D 315 mg-250 intl units oral tablet See Instructions, TAKE 1 TABLET BY MOUTH TWICE DAILY, # 60 tablet, 5 Refills, Soft Stop, 12/13/20 11:12:00 EDT, [facility] #03287, TAKE 1 TABLET BY MOUTH TWICE DAILY, [...] 5 Refills, Maintenance, 12/22/20 13:54:00 EST, Tablet, [facility] #[id number], Partial fill upon patient request if the prescription is for a schedule II opioid drug., 1 tablet By Mouth Daily, 157.6, cm, 09... Start Date: 12/22/20 Status: Ordered fluticasone 50 mcg/inh nasal spray See Instructions, SHAKE LIQUID AND USE 1 SPRAY IN EACH NOSTRIL DAILY, # 16 Gm, 2 Refills, [facility] #22331, 60, SHAKE LIQUID AND USE 1 SPRAY IN EACH NOSTRIL DAILY, 157.6, cm, 10/14/20 13:53:00 EDT, Height Start Date: 02/17/21 Status: Ordered hydrOXYzine pamoate 25 mg oral capsule 1 capsule, By Mouth, 2 times a day, PRN NEEDED FOR ANXIETY, for 30 days, schedule physical with Carmen Burk NP, # 60 capsule, 0 Refills, Acute 05/21/21 9:50:00 EDT, 04/21/21 9:50:00 EST, [facility] #79602, 157.6, cm, 10/14/20 13:53:00... Start Date: 04/21/21 Stop Date: 05/21/21 Status: Ordered lisinopril 10 mg oral tablet 1, tablet, By Mouth, Daily, # 90 tablet, Refills 3, Tot. Refills 3, Maintenance, 12/05/20 10:00:00 EDT, Route to Pharmacy Electronically, [facility] #34478, 157.6, cm, 10/14/20 13:53:00 EDT, Height Start [...] tablet, Refills 1, Route to Pharmacy Electronically, [facility] #[id number], 157.6, cm, 10/14/20 13:53:00 EDT, Height Start Date: 03/19/21 Status: Ordered omeprazole 20 mg oral enteric coated capsule 1 capsule, By Mouth, 2 times a day, # 180 capsule, 1 Refills, Maintenance, 03/06/21 10:04:00 EST, [facility] #44209, Please use this script, 157.6, cm, 10/14/20 [...] Mouth, Daily, # 45 tablet, 5 Refills, [facility] #89448, 157.6, cm, 10/14/20 13:53:00 EDT, Height Start Date: 11/21/20 Status: Ordered Tylenol 325 mg oral tablet 325 mg, 1, tablet, By Mouth, 2 times a day, # 60 tablet, Refills 0, Tot. Refills 0, Maintenance, 12/13/16 12:48:45, Route to Pharmacy Electronically, [id number], [facility] [address] Start Date: 12/13/16 Status: Ordered Ventolin HFA 108 mcg/inh inhalation aerosol with adapter 2 puffs, Inhalation, 4 times a day, PRN for wheezing, # 8 Gm, 5 Refills, Maintenance, 05/03/21 10:58:00 EDT, Aerosol, [facility] #44688, 157.6, cm, 10/14/20 13:53:00 EDT, Height Start Date: 05/03/21 Status: Ordered Wixela Inhub 500 mcg-50 mcg inhalation powder 1 puffs, Inhalation, 2 times a day, # 60 each, 5 Refills, [facility] #[id number], 30, INHALE 1PUFF BY MOUTH TWICE DAILY, 157.6, cm, 10/14/20 13:53:00 EDT, Height Start Date: 11/28/20 Status: Ordered Problem List Condition Effective Dates Status Health Status Inform ant Anxiety(Confirmed) Active Asthma(Confirmed) Active COPD(Confirmed) Active Oxygen dependent(Confirmed) Active Hypertension(Confirmed) Active Depression, major, in remission(Confirmed) Active Osteoarthritis(Confirmed) Active *[facility] [phone] CARE MANAG ER TRIXIE LEÓN(Confirmed) Active PTSD [...]
--- OUTSIDE RECORDS SUMMARY | 2023-07-07 11:25 | XMS_ITS | Continuity of Care Document ---
Author Organization [facility] Jorje Gallego Shahram lt Address [address] [place] [address]- Care Team Providers Care [employer] Worker Name Role Phone Wm CHAIDEZ, Carmen Harris Primary Care Physician [phone] Encounter [facility] Date(s): 08/23/21 - 09/22/21 [facility] Adult [address] [place] [address]- Allergies, Adverse Reactions, Alerts Substance Reaction Severity Status codeine Active sulfa drugs rash Active Neosporin Active Tape tape-skin breakdown Active Immunizations Given and Recorded Vaccine Date Status Refusal Reason SARS-CoV-2 mRNA (rakjwhp-deve-zhrcj) vax 07/14/21 Given SARS-CoV-2 (COVID-19) mRNA BNT-162b2 [...] Stop 04/02/22 10:38:00 EST, 04/07/21 10:38:00 EST, [facility] #[id number], 157.6, cm, 10/14/20 13:53:00 EDT, Height Start Date: 04/07/21 Stop Date: 04/02/22 Status: Ordered Calcitrate with D 315 mg-250 intl units oral tablet See Instructions, TAKE 1 TABLET BY MOUTH TWICE DAILY, # 60 tablet, 5 Refills, Soft Stop, 07/03/21 16:41:00 EDT, [facility] #[id number], TAKE 1 TABLET BY MOUTH TWICE DAILY, [...] 5 Refills, Maintenance, 07/14/21 13:10:00 EDT, Tablet, [facility] #[id number], Partial fill upon patient request if the prescription is for a schedule II opioid drug., 1 tablet By Mouth Daily, 157.6, cm, 06... Start Date: 07/14/21 Status: Ordered hydrOXYzine pamoate 25 mg oral capsule 1 capsule, By Mouth, 2 times a day, PRN NEEDED FOR ANXIETY, for 30 days, schedule physical with Carmen Burk CLINIC OFFICE ASSISTANT, # 60 capsule, 5 Refills, Acute 12/30/21 9:11:00 EST, 07/03/21 9:11:00 EDT, [facility] #53573, 157.6, cm, 10/14/20 13:53:00... Start Date: 07/03/21 Stop Date: 12/30/21 Status: Ordered lisinopril 10 mg oral tablet 1, tablet, By Mouth, Daily, # 90 tablet, Refills 3, Tot. Refills 3, Maintenance, 07/05/21 8:57:00 EDT, [id number], 157.6, cm, 10/14/20 13:53:00 EDT,Height Start Date: 07/05/21 Status: Ordered magnesium oxide 400 mg oral tablet 1 tablet = 400 mg, By Mouth, Daily, for 30 days, # 30 tablet, 11 Refills, Acute 07/09/22 13:16:00 EDT, 07/14/21 13:16:00 EDT, [facility] #[id number], 157.6, cm, 07/14/21 12:48:00 EDT, Height Start [...] tablet, Refills 1, Route to Pharmacy Electronically, [facility] #87473, 157.6, cm, 07/14/21 12:48:00 EDT, Height Start Date: 09/19/21 Status: Ordered omeprazole 20 mg oral enteric coated capsule 1 capsule, By Mouth, 2 times a day, # 180 capsule, 0 Refills, Maintenance, 07/03/21 16:41:00 EDT, [facility] #[id number], Please use this script, 157.6, cm, 10/14/20 [...] 45 tablet, 5 Refills, 07/05/21 8:57:00 EDT, [facility] #49597, 157.6, cm, 10/14/20 13:53:00 EDT, Height Start Date: 07/05/21 Status: Ordered traZODone 50 mg oral tablet 50 mg, 1, tablet, By Mouth, Daily at bedtime, # 30 tablet, Refills 6, Tot. Refills 6, Maintenance, 07/14/21 13:05:00 EDT, Route to Pharmacy Electronically, [facility] #[id number], Partial fill upon patient request if the prescription is for a gloria... Start Date: 07/14/21 Stop Date: 02/09/22 Status: Ordered Tylenol 325 mg oral tablet 325 mg, 1, tablet, By Mouth, 2 times a day, # 60 tablet, Refills 0, Tot. Refills 0, Maintenance, 12/13/16 12:48:45, Route to Pharmacy Electronically, [id number], [facility] [address] Start Date: 12/13/16 Status: Ordered Ventolin HFA 108 mcg/inh inhalation aerosol with adapter 2 puffs, Inhalation, 4 times a day, PRN for wheezing, # 8 Gm, 5 Refills, Maintenance, 05/03/21 10:58:00 EDT, Aerosol, [facility] #[id number], 157.6, cm, 10/14/20 13:53:00 EDT, Height Start Date: 05/03/21 Status: Ordered Wixela Inhub 500 mcg-50 mcg inhalation powder 1 puffs, Inhalation, 2 times a day, # 60 each, 5 Refills, [facility] #[id number], 30, INHALE 1PUFF BY MOUTH TWICE DAILY, 157.6, cm, 10/14/20 13:53:00 EDT, Height Start Date: 06/01/21 Status: Ordered Problem List Condition Effective Dates Status Health Status Inform ant Anxiety(Confirmed) Active Asthma(Confirmed) Active Oxygen dependent(Confirmed) Active Hypertension(Confirmed) Active Depression, major, in remission(Confirmed) Active Obese class II(Confirmed) Active Osteoarthritis(Confirmed) Active *[facility] [phone] 

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
--- OUTSIDE RECORDS SUMMARY | 2023-07-07 11:26 | XMS_ITS | Continuity of Care Document ---
Author Organization [facility] Julián Shahram Address [address] [place] [address]- Care Team Providers Care Director Electrical Engineering Name Role Phone Wm CHAIDEZ, Carmen Harris Primary Care Physician [phone] En[facility] Date(s): 11/24/21 - 12/24/21 [facility] Jorje Garsialey Adult [address] [place] [address]- Attending Physician: Admtr, Ar8 Admitting Physician: Admtr, Ar8 Referring Physician: Admtr, Ar8 Allergies, Adverse Reactions, Alerts Substance Reaction Severity Status codeine Active sulfa drugs rash Active Neosporin Active Tape tape-skin breakdown Active Immunizations Given and Recorded Vaccine Date Status Refusal Reason SARS-CoV-2 mRNA (hobdosr-hinu-exlet) vax 07/14/21 Given SARS-CoV-2 (COVID-19) mRNA BNT-162b2 [...] pneumococcal 23-valent vaccine 01/08/05 Recorded tetanus/diphtheria/pertussis, acel(Tdap) 3/30/15 Given 1Early/Late Reason: Accommodate D/C 2Admin Note: [facility] info given to patient Medications 02 [...] 4 Refills, Maintenance, 12/12/21 8:44:00 EDT, Solution, [facility]/pharmacy #2339, 157.6, cm, 11/24/21 [...] 5 Refills, Soft Stop, 07/03/21 16:41:00 EDT, [facility] #[id number], TAKE 1 TABLET BY MOUTH TWICE DAILY, [...] 5 Refills, Maintenance, 12/12/21 8:49:00 EDT, Tablet, [facility]/pharmacy #2339, Partial fill upon patient request if the prescription is for a schedule II opioid drug., 1 tablet By Mouth Daily, 157.6, cm, 11/24/21 13:... Start Date: 12/12/21 Status: Ordered hydrOXYzine pamoate 25 mg oral capsule 1 capsule, By Mouth, 2 times a day, PRN NEEDED FOR ANXIETY, for 30 days, schedule physical with Carmen Burk ORTHOTICS TECHNICIAN, # 60 capsule, 5 Refills, Acute 06/10/22 8:47:00 EDT, 12/12/21 8:47:00 EDT, [facility]/pharmacy #2339, 157.6, cm, 11/24/21 13:30:00 EDT, Height Start Date: 12/12/21 Stop Date: 06/10/22 Status: Ordered Incruse Ellipta 62.5 mcg/inh inhalation powder 1 each, Inhalation, Every 24 hours, doses should be taken at least 24 hours apart, [id number], # 1 each, 6 Refills, Maintenance, 12/12/21 8:50:00 EDT, Powder, [facility]/pharmacy #2339, Partial fill upon patient request if the prescription is for a schedule II o... Start Date: 12/12/21 Status: Ordered lisinopril 10 mg oral tablet 1, tablet, By Mouth, Daily, # 90 tablet, Refills 3, Tot. Refills 3, Maintenance, 12/12/21 8:47:00 EDT, Route to Pharmacy Electronically, [facility]/pharmacy #2339, 157.6, cm, 11/24/21 13:30:00 EDT, Height Start Date: 12/12/21 Status: Ordered magnesium oxide 400 mg oral tablet 1 tablet = 400 mg, By Mouth, Daily, for 30 days, # 30 tablet, 11 Refills, Acute 12/07/22 8:48:00 EDT, 12/12/21 8:48:00 EDT, [facility]/pharmacy #2339, 157.6, cm, 11/24/21 [...] 12/12/21 8:48:00 EDT, Route to Pharmacy Electronically, [facility]/pharmacy #2339, 157.6, cm, 11/24/21 13:30:00 EDT, Height Start Date: 12/12/21 Status: Ordered omeprazole 20 mg oral enteric coated capsule 1 capsule, By Mouth, 2 times a day, # 180 capsule, 0 Refills, Maintenance, 12/08/21 9:23:00 EDT, [facility]/pharmacy #2339, Please use this script, 157.6, [...] 45 tablet, 5 Refills, 12/12/21 8:49:00 EDT, [facility]/pharmacy #2339, 157.6, cm, 11/24/21 13:30:00 EDT, Height Start Date: 12/12/21 Status: Ordered traZODone 50 mg oral tablet 50 mg, 1, tablet, By Mouth, Daily at bedtime, # 30 tablet, Refills 6, Tot. Refills 6, Maintenance, 12/12/21 8:50:00 EDT, Route to Pharmacy Electronically, [facility]/pharmacy #2339, Partial fill upon patient request if the prescription is for a schedule II o... Start Date: 12/12/21 Stop Date: 07/10/22 Status: Ordered Tylenol 325 mg oral tablet 325 mg, 1, tablet, By Mouth, 2 times a day, # 60 tablet, Refills 0, Tot. Refills 0, Maintenance, 12/13/16 12:48:45, Route to Pharmacy Electronically, [id number], [facility] [address] Start Date: 12/13/16 Status: Ordered Ventolin HFA 108 mcg/inh inhalation aerosol with adapter 2 puffs, Inhalation, 4 times a day, PRN for wheezing, brand name medically necessary, # 8 Gm, 5 Refills, Maintenance, 12/18/21 12:07:00 EST, Aerosol, [facility]/pharmacy #2339, 157.6, cm, 11/24/21 13:30:00 EDT, Height Start Date: 12/18/21 Status: Ordered Wixela Inhub 500 mcg-50 mcg inhalation powder 1 puffs, Inhalation, 2 times a day, # 60 each, 5 Refills, 12/12/21 8:47:00 EDT, [facility]/pharmacy #2339,30, 1 puffs Inhalation 2 times a day, 157.6, cm, 11/24/21 13:30:00 EDT, Height Start Date: 12/12/21 Status: Ordered Problem List Condition Confirmation Course Effective Dates Status H ealth Status Informant Anxiety Confirmed Active Asthma Confirmed Active Oxygen dependent Confirmed Active Hypertension Confirmed Active Depression, major, in remission Confirmed Active Obese class II Confirmed Active Osteoarthritis Confirmed Active *[facility] [phone] PRODUCTION SUPV TRIXIE LEÓN Confirmed Active PTSD (post-traumatic stress [...] Date: * Event Display: EKG Authored Date: Note * Event Display: MM Mammogram Authored Date: Patient Care team information Care Team Personnel Name: Natalia Kennedy Position: [facility] Onco RN Member Role: Primary Care Nurse Name: Carmen Burk NP Position: [facility] PCO Associate Professional Member Role: PCP Address: Address: [address] [place] [id number] Care Team Related Persons Name: STACIE HORTON Address: home [address] [place] [address] Name: STACIE CHARLES Address: [address] [place] [address] Name: LUCIANO GRIMES Address: home [address] [place] [id number]
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
--- OUTSIDE RECORDS SUMMARY | 2023-07-07 11:26 | XMS_ITS | Continuity of Care Document ---
Author Organization [facility] Address [address] [place] [address]- Care Team Providers Care Data Collection Specialist Name Role Phone Wm CHAIDEZ, Carmen Harris Primary Care Physician [phone] Encounter [facility] Date(s): 12/20/21 - 01/19/22 [facility] [address] [place] [address]- Attending Physician: Lori Moulton Admitting Physician: AdmLori louis Referring Physician: AdmtrLori Allergies, Adverse Reactions, Alerts Substance Reaction Severity Status codeine Active Neosporin Active Tape tape-skin breakdown Active sulfa drugs rash Active Immunizations Given and Recorded Vaccine Date Status Refusal Reason SARS-CoV-2 mRNA (ghevhdx-dolm-rsbhg) vax 07/14/21 Given SARS-CoV-2 (COVID-19) mRNA BNT-162b2 [...] Given 1Early/Late Reason: Accommodate D/C 2Admin Note: [facility] info given to patient Medications 02 [...] 5 Refills, Soft Stop, 07/03/21 16:41:00 EDT, [facility] #[id number], TAKE 1 TABLET BY MOUTH TWICE DAILY, [...] 30 days, schedule physical with Carmen Burk APPLIANCE SERVICER, # 60 capsule, 5 Refills, Acute 06/10/22 8:47:00 EDT, 12/12/21 8:47:00 EDT, [facility]/pharmacy #2339, 157.6, cm, 11/24/21 13:30:00 EDT, Height Start Date: 12/12/21 Stop Date: 06/10/22 Status: Ordered Incruse Ellipta 62.5 mcg/inh inhalation powder 1 each, Inhalation, Every 24 hours, doses should be taken at least 24 hours apart, j45.40, # 1 each, 6 Refills, Maintenance, 12/12/21 8:50:00 EDT, Powder, [facility]/pharmacy #2339, Partial fill upon patient request if the prescription is for a schedule II o... Start Date: 12/12/21 Status: Ordered lisinopril 10 mg oral tablet 1, tablet, By Mouth, Daily, # 90 tablet, Refills 3, Tot. Refills 3, Maintenance, 12/12/21 8:47:00 EDT, Route to Pharmacy Electronically, [facility]/pharmacy #2339, 157.6, cm, 11/24/21 13:30:00 EDT, [...] 12/12/21 8:48:00 EDT, Route to Pharmacy Electronically, [facility]/pharmacy #2339, 157.6, cm, 11/24/21 13:30:00 EDT, Height Start Date: 12/12/21 Status: Ordered omeprazole 20 mg oral enteric coated capsule 1 capsule, By Mouth, 2 times a day, # 180 capsule, 0 Refills, Maintenance, 12/08/21 9:23:00 EDT, [facility]/pharmacy #2339, Please use this script, 157.6, cm, [...] 45 tablet, 5 Refills, 12/12/21 8:49:00 EDT, [facility]/pharmacy #2339, 157.6, cm, 11/24/21 13:30:00 EDT, Height Start Date: 12/12/21 Status: Ordered traZODone 50 mg oral tablet 50 mg, 1, tablet, By Mouth, Daily at bedtime, # 30 tablet, Refills 6, Tot. Refills 6, Maintenance, 12/12/21 8:50:00 EDT, Route to Pharmacy Electronically, [facility]/pharmacy #2339, Partial fill upon patient request if the prescription is for a schedule II o... Start Date: 12/12/21 Stop Date: 07/10/22 Status: Ordered Tylenol 325 mg oral tablet 325 mg, 1, tablet, By Mouth, 2 times a day, # 60 tablet, Refills 0, Tot. Refills 0, Maintenance, 12/13/16 12:48:45, Route to Pharmacy Electronically, [id number][facility] Start Date: 12/13/16 Status: Ordered Ventolin HFA 108 mcg/inh inhalation aerosol with adapter 2 puffs, Inhalation, 4 times a day, PRN for wheezing, brand name medically necessary, # 8 Gm, 5 Refills, Maintenance, 12/18/21 12:07:00 EST, Aerosol, [facility]/pharmacy #2339, 157.6, cm, 11/24/21 13:30:00 EDT, Height Start Date: 12/18/21 Status: Ordered Wixela Inhub 500 mcg-50 mcg inhalation powder 1 puffs, Inhalation, 2 times a day, # 60 each, 5 Refills, 12/12/21 8:47:00 EDT, [facility]/pharmacy #2339,30, 1 puffs Inhalation 2 times a day, 157.6, cm, 11/24/21 13:30:00 EDT, Height Start Date: 12/12/21 Status: Ordered Problem List Condition Confirmation Course Effective Dates Status H ealth Status Informant Anxiety Confirmed Active Asthma Confirmed Active Oxygen dependent Confirmed Active Hypertension Confirmed Active Depression, major, in remission Confirmed Active Obese class II Confirmed Active Osteoarthritis Confirmed Active *[facility] [phone] ENGAGEMENT MGR TRIXIE LEÓN Confirmed Active PTSD (post-traumatic stress [...] Care Team Personnel Name: Natalia Kennedy Position: [facility] Onco RN Member Role: Primary Care Nurse Name: Carmen Burk NP Position: [facility] PCO Associate Professional Member Role: PCP Address: Address: [address] [place] [address], [place] [address]- [place] Care Team Related Persons Name: STACIE HORTON Address: home [address] [place] [address] Name: STACIE CHARLES Address: home [address] [place] [address] Name: LUCIANO GRIMES Address: home [address] [place] [address]
--- OUTSIDE RECORDS SUMMARY | 2023-07-07 11:26 | XMS_ITS | Continuity of Care Document ---
Author Organization [facility] Address [address] [place] [address]- Care Team Providers Care Auditor Appraiser Name Role Phone Wm CHAIDEZ, Carmen Harris Primary Care Physician Encounter [facility] Date(s): 11/19/22 - 12/19/22 [facility] [address] [place] [id number] Allergies, Adverse Reactions, Alerts Substance Reaction Severity Status codeine Active Neosporin Active Tape tape-skin breakdown Active sulfa drugs rash Active Immunizations Given and Recorded Vaccine Date Status Refusal Reason SARS-CoV-2 mRNA (keipvhw-cjyj-coxkb) vax 07/14/21 Given SARS-CoV-2 (COVID-19) mRNA BNT-162b2 [...] 6 Refills, Maintenance, 07/12/22 16:43:00 EDT, Solution, [facility]/pharmacy #0488, Partial fill upon patient request if the prescription is for a schedule II opioid drug., 157.6, cm, 0... Start Date: 07/12/22 Status: Ordered albuterol 0.083% inhalation solution 3 mL = 2.5 mg, Inhalation, Every 6 hours, PRN for wheezing, # 60 each, 4 Refills, Maintenance, 12/12/21 8:44:00 EDT, Solution, [facility]/pharmacy #2339, 157.6, cm, 11/24/21 13:30:00 EDT, Height [...] 5 Refills, Soft Stop, 07/03/21 16:41:00 EDT, [facility] #[id number], TAKE 1 TABLET BY MOUTH TWICE DAILY, [...] 5 Refills, Maintenance, 05/08/22 8:43:00 EDT, Tablet, [facility]/pharmacy #2339, Partial fill upon patient request if [...] capsule, 1 Refills, Maintenance, 06/18/22 14:19:00 EDT, [facility] 312[facility], 157.6, cm, 05/23/22 11:27:00 EDT, Height Start Date: 06/18/22 Status: Ordered losartan 50 mg oral tablet 50 mg, 1, tablet, By Mouth, Daily, # 30 tablet, Refills 11, Tot. Refills 11, Maintenance, 05/23/22 11:59:00 EDT, Route to Pharmacy Electronically, [facility]/pharmacy #2339, Partial fill upon patient request if the prescription is for a schedule II opioid dr... Start Date: 05/23/22 Status: Ordered Miscellaneous Rx [...] 12/14/22 9:16:00 EDT, Route to Pharmacy Electronically, [facility] 6[facility]99, 157.6, cm, 11/26/22 9:24:00 EDT, Height Start Date: 12/14/22 Status: Ordered O2 evaluation O2 evaluation, See Instructions, # 1 each, Refills 11, Tot. Refills 11, Maintenance, updated O2 Rx for this patient for the following: Pt requires 2LPM at rest and 3 LPM with activity/portability. [facility]x J44.9 J45.909, ... Start Date: 12/14/22 Status: Ordered omeprazole 20 mg oral enteric coated capsule 1 capsule, By Mouth, 2 times a day, # 180 capsule, 0 Refills, Maintenance, 12/06/22 12:30:00 EDT, [facility], 157.6, cm, 11/26/22 9:24:00 EDT, Height Start [...] tablet, 1 Refills, Maintenance, 12/14/22 9:17:00 EDT, [facility], 157.6, cm, 11/26/22 9:24:00 EDT, Height Start Date: 12/14/22 Status: Ordered Trelegy Ellipta 200 mcg-62.5 mcg-25 mcg/inh inhalation powder 1 puffs, Inhalation, Daily, at the same time every day, j44.9, # 1 each, 6 Refills, Maintenance, 10/10/22 15:08:00 EDT, Powder, [facility], Partial fill upon patient request if the prescription is for a schedule II opioid drug., 1 puf... Start Date: 10/10/22 Status: Ordered Tylenol 325 mg oral tablet 325 mg, 1, tablet, By Mouth, 2 times a day, # 60 tablet, Refills 0, Tot. Refills 0, Maintenance, 12/13/16 12:48:45, Route to Pharmacy Electronically, [id number], [facility] Start Date: 12/13/16 Status: Ordered Ventolin HFA 108 mcg/inh inhalation aerosol with adapter 2 puffs, Inhalation, 4 times a day, PRN for wheezing, brand name medically necessary, # 18 Gm, 11 Refills, Maintenance, 12/13/22 15:25:00 EDT, Aerosol, [facility], 157.6, cm, 11/26/22 9:24:00EDT, Height Start Date: 12/13/22 Status: Ordered Problem List Condition Confirmation Course Effective Dates Status H ealth Status Informant Anxiety Confirmed Active Asthma Confirmed Active Oxygen dependent Confirmed Active Hypertension Confirmed Active Depression, major, in remission Confirmed Active Osteoarthritis Confirmed Active *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
--- OUTSIDE RECORDS SUMMARY | 2023-07-07 11:26 | XMS_ITS | Continuity of Care Document ---
Author Organization [facility] Address [address] [place] [address]- Care Team Providers Care Configuration Specialist Name Role Phone Wm CHAIDEZ, Carmen Harris Primary Care Physician [phone] Encounter [facility] Date(s): 08/13/22 - 09/12/22 [facility] [address] [place] [address]- Allergies, Adverse Reactions, Alerts Substance Reaction Severity Status codeine Active Neosporin Active Tape tape-skin breakdown Active sulfa drugs rash Active Immunizations Given and Recorded Vaccine Date Status Refusal Reason SARS-CoV-2 mRNA (ixoawlq-asvx-bfqzg) vax 07/14/21 Given SARS-CoV-2 (COVID-19) mRNA BNT-162b2 [...] 6 Refills, Maintenance, 07/12/22 16:43:00 EDT, Solution, [facility]/pharmacy #0488, Partial fill upon patient request if the prescription is for a schedule II opioid drug., 157.6, cm, 0... Start Date: 07/12/22 Status: Ordered albuterol 0.083% inhalation solution 3 mL = 2.5 mg, Inhalation, Every 6 hours, PRN for wheezing, # 60 each, 4 Refills, Maintenance, 12/12/21 8:44:00 EDT, Solution, [facility]/pharmacy #2339, 157.6, cm, 11/24/21 13:30:00 EDT, Height [...] 5 Refills, Soft Stop, 07/03/21 16:41:00 EDT, [facility] #06554, TAKE 1 TABLET BY MOUTH TWICE DAILY, [...] 5 Refills, Maintenance, 05/08/22 8:43:00 EDT, Tablet, [facility]/pharmacy #2339, Partial fill upon patient request if [...] Refills, Maintenance, 06/18/22 14:19:00 EDT, [facility], 157.6, cm, 05/23/22 11:27:00 EDT, Height Start Date: 06/18/22 Status: Ordered losartan 50 mg oral tablet 50 mg, 1, tablet, By Mouth, Daily, # 30 tablet, Refills 11, Tot. Refills 11, Maintenance, 05/23/22 11:59:00 EDT, Route to Pharmacy Electronically, [facility]/pharmacy #2339, Partial fill upon patient request if the prescription is for a schedule II opioid drUrszual. Start Date: 05/23/22 Status: Ordered magnesium oxide 400 mg oral tablet 1 tablet = 400 mg, By Mouth, Daily, for 30 days, # 30 tablet, 11 Refills, Acute 12/07/22 8:48:00 EDT, 12/12/21 8:48:00 EDT, [facility]/pharmacy #2339, 157.6, cm, 11/24/21 13:30:00 EDT, Height [...] 06/17/22 9:57:00 EDT, Route to Pharmacy Electronically, [facility] 27114, 157.6, cm, 05/23/22 11:27:00 EDT, Height Start Date: 06/17/22 Status: Ordered omeprazole 20 mg oral enteric coated capsule 1 capsule, By Mouth, 2 times a day, # 180 capsule, 0 Refills, Maintenance, 09/09/22 5:26:00 EDT, [facility] 11014, 157.6, cm, 07/12/22 16:25:00 EDT, Height Start [...] tablet, 1 Refills, Maintenance, 06/18/22 14:19:00 EDT, [id number], 157.6, cm, 05/23/22 11:27:00 EDT, Height Start Date: 06/18/22 Status: Ordered Trelegy Ellipta 200 mcg-62.5 mcg-25 mcg/inh inhalation powder 1 puffs, Inhalation, Daily, at the same time every day, # 1 each, 6 Refills, Maintenance, 07/12/22 16:19:00 EDT, Powder, [facility]/pharmacy #0488, Partial fill upon patient request if the prescription is for a schedule II opioid drug., 1 puffs Inhalation Da... Start Date: 07/12/22 Status: Ordered Tylenol 325 mg oral tablet 325 mg, 1, tablet, By Mouth, 2 times a day, # 60 tablet, Refills 0, Tot. Refills 0, Maintenance, 12/13/16 12:48:45, Route to Pharmacy Electronically, [id number], [facility] [address] Start Date: 12/13/16 Status: Ordered Ventolin HFA 108 mcg/inh inhalation aerosol with adapter 2 puffs, Inhalation, 4 times a day, PRN for wheezing, brand name medically necessary, # 8 Gm, 5 Refills, Maintenance, 12/18/21 12:07:00 EST, Aerosol, [facility]/pharmacy #2339, 157.6, cm, 11/24/21 13:30:00 EDT, Height Start Date: 12/18/21 Status: Ordered Problem List Condition Confirmation Course Effective Dates Status H ealth Status Informant Anxiety Confirmed Active Asthma Confirmed Active Oxygen dependent Confirmed Active Hypertension Confirmed Active Depression, major, in remission Confirmed Active Obese class I Confirmed Active Osteoarthritis Confirmed Active *[facility] [phone] 

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
--- OUTSIDE RECORDS SUMMARY | 2023-07-07 11:26 | XMS_ITS | Continuity of Care Document ---
Author Organization [facility] Jorje Gallego Shahram Address [address] [place] [address]- Care Team Providers Care Clerk Typist Name Role Phone Wm CHAIDEZ, Carmen Harris Primary Care Physician Encounter [facility] Date(s): 04/05/23 - 05/05/23 [facility] Jorje Garsialey Adult [address] [place] [address]- Allergies, Adverse Reactions, Alerts Substance Reaction Severity Status codeine Active Neosporin Active Tape tape-skin breakdown Active sulfa drugs rash Active Immunizations Given and Recorded Vaccine Date Status Refusal Reason SARS-CoV-2 mRNA (lwrwnfx-oywo-xnzge) vax 07/14/21 Given SARS-CoV-2 (COVID-19) mRNA BNT-162b2 [...] 5 Refills, Maintenance, 01/04/23 13:28:00 EST, Solution, [facility], Partial fill upon patient [...] 08/06/23 13:25:00 EDT, 01/08/23 13:25:00 EST, Tablet, [facility], Partial fill upon patient [...] 5 Refills, Soft Stop, 07/03/21 16:41:00 EDT, [facility] #[id number], TAKE 1 TABLET BY MOUTH TWICE DAILY, 157.6, cm, 10/14/20 13:53:00 EDT, Height Start Date: 07/03/21 Status: Ordered calcium (as citrate)-vitamin D 315 mg-250 intl units oral tablet 1 tablet, By Mouth, 2 times a day, # 60 tablet, 6 Refills, Maintenance, 01/07/23 6:56:00 EST, Tablet, [facility], Partial fill upon patient request [...] EDT, Tablet, [facility]/pharmacy #2337, Partial fill upon patient request if [...] capsule, 1 Refills, Maintenance, 01/07/23 6:54:00 EST, [facility], 157.6, cm, 11/26/22 9:24:00 EDT, Height Start Date: 01/07/23 Status: Ordered losartan 50 mg oral tablet 50 mg, 1, tablet, By Mouth, Daily, # 30 tablet, Refills 11, Tot. Refills 11, Maintenance, 01/07/23 6:54:00 EST, Route to Pharmacy Electronically, [facility], Partial fill upon patient request [...] 01/07/23 6:53:00 EST, Route to Pharmacy Electronically, [facility], 157.6, cm, 11/26/22 9:24:00EDT, Height Start Date: 01/07/23 Status: Ordered O2 evaluation O2 evaluation, See Instructions, # 1 each, Refills 11, Tot. Refills 11, Maintenance, updated O2 Rx for this patient for the following: Pt requires 2LPM at rest and 3 LPM with activity/portability. [facility] J44.9 J45.909, . [...] capsule, 0 Refills, Maintenance, 01/07/23 6:53:00 EST, [facility], 157.6, cm, 11/26/22 9:24:00 EDT, [...] tablet, 1 Refills, Maintenance, 01/07/23 6:53:00 EST, [facility], 157.6, cm, 11/26/22 9:24:00 EDT, Height Start Date: 01/07/23 Status: Ordered Trelegy Ellipta 200 mcg-62.5 mcg-25 mcg/inh inhalation powder 1 puffs, Inhalation, Daily, at the same time every day, j44.9, # 3 each, 3 Refills, Maintenance, 04/08/23 15:20:00 EST, Powder, [facility], Partial fill upon patient request if the prescription is for a schedule II opioid drug., 1 puf... Start Date: 04/08/23 Status: Ordered Tylenol 325 mg oral tablet 325 mg, 1, tablet, By Mouth, 2 times a day, # 60 tablet, Refills 0, Tot. Refills 0, Maintenance, 12/13/16 12:48:45, Route to Pharmacy Electronically, [id number], [facility] [address] Start Date: 12/13/16 Status: Ordered Ventolin HFA 108 mcg/inh inhalation aerosol with adapter 2 puffs, Inhalation, 4 times a day, PRN for wheezing, brand name medically necessary, # 18 Gm, 5 Refills, Maintenance, 01/04/23 13:28:00 EST, Aerosol, 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
--- OUTSIDE RECORDS SUMMARY | 2023-07-07 11:26 | XMS_ITS | Continuity of Care Document ---
Author Organization [facility] ter Address [address] [place] [address]- Care Team Providers Care Thermostat Repairer Name Role Phone Wm CHAIDEZ, Carmen Harris Primary Care Physician Encounter [facility] [place] Date(s): 04/09/23 - 05/19/[address] [address] Attending Physician: Bella Shelton MD Admitting Physician: Bella Shelton MD Referring Physician: Bella Shelton MD Allergies, Adverse Reactions, Alerts Substance Reaction Severity Status codeine Active sulfa drugs rash Active Neosporin Active Tape tape-skin breakdown Active Immunizations Given and Recorded Vaccine Date Status Refusal Reason SARS-CoV-2 mRNA (bvkqjro-[id number]-[id number]) vax 07/14/21 Given SARS-CoV-2 (COVID-19) mRNA BNT-162b2 [...] [facility] info given to patient Medications 02 Rx [...] 5 Refills, Maintenance, 01/04/23 13:28:00 EST, Solution, [facility], Partial fill upon patient request if the prescription is for a schedule II opioid drug., 157.6,... Start Date: 01/04/23 Status: Ordered albuterol 0.083% inhalation solution 3 mL = 2.5 mg, Inhalation, Every 6 hours, PRN for wheezing, # 60 each, 4 Refills, Maintenance, 12/12/21 8:44:00 EDT, Solution, [facility]/pharmacy #[id number], 157.6, cm, 11/24/21 13:30:00 EDT, Height Start Date: 12/12/21 Status: Ordered azithromycin 500 mg oral tablet 1 tablet = 500 mg, By Mouth, Every Saturday, Saturday and Saturday, for 30 days, j44.9, # 13 tablet, 6Refills, Acute 08/06/23 13:25:00 EDT, 01/08/23 13:25:00 EST, Tablet, [facility], Partial fill upon patient request if the prescription... Start Date: 01/08/23 Stop Date: 08/06/23 Status: Ordered azithromycin 500 mg oral tablet 1 tablet = 500 mg, By Mouth, Every Saturday, Saturday and Saturday, for 180 days, # 78 tablet, 1 Refills, Acute 11/19/23 10:09:00 EDT, 11/24/22 10:09:00 EDT, Tablet, [facility]/pharmacy #[id number], Partial fill upon patient request if the prescription is for a sched... Start Date: 11/24/22 Stop Date: 11/19/23 Status: Ordered Calcitrate with D 315 mg-250 intl units oral tablet See Instructions, TAKE 1 TABLET BY MOUTH TWICE DAILY, # 60 tablet, 5 Refills, Soft Stop, 07/03/21 16:41:00 EDT, [facility] #[id number], TAKE 1 TABLET BY MOUTH TWICE DAILY, 157.6, cm, 10/14/20 13:53:00 EDT, Height Start Date: 07/03/21 Status: Ordered calcium (as citrate)-vitamin D 315 mg-250 intl units oral tablet 1 tablet, By Mouth, 2 times a day, # 60 tablet, 6 Refills, Maintenance, 01/07/23 6:56:00 EST, Tablet, [facility], Partial fill upon patient request [...] 5 Refills, Maintenance, 05/08/22 8:43:00 EDT, Tablet, [facility]/pharmacy #[id number], Partial fill upon patient [...] capsule, 1 Refills, Maintenance, 01/07/23 6:54:00 EST, [facility], 157.6, cm, 11/26/22 9:24:00 EDT, Height Start Date: 01/07/23 Status: Ordered losartan 50 mg oral tablet 50 mg, 1, tablet, By Mouth, Daily, # 30 tablet, Refills 11, Tot. Refills 11, Maintenance, 01/07/23 6:54:00 EST, Route to Pharmacy Electronically, [facility], Partial fill upon patient request [...] 01/07/23 6:53:00 EST, Route to Pharmacy Electronically, [facility], 157.6, cm, 11/26/22 9:24:00EDT, Height Start Date: 01/07/23 Status: Ordered O2 evaluation O2 evaluation, See Instructions, # 1 each, Refills 11, Tot. Refills 11, Maintenance, updated O2 Rx for this patient for the following: Pt requires 2LPM at rest and 3 LPM with activity/portability. [facility] J44.9 J45.909, . [...] capsule, 0 Refills, Maintenance, 05/10/23 9:42:00 EDT, [facility], 157.6, cm, 11/26/22 9:24:00 EDT, Height [...] tablet, 1 Refills, Maintenance, 01/07/23 6:53:00 EST, [facility], 157.6, cm, 11/26/22 9:24:00 EDT, Height Start Date: 01/07/23 Status: Ordered Trelegy Ellipta 200 mcg-62.5 mcg-25 mcg/inh inhalation powder 1 puffs, Inhalation, Daily, at the same time every day, j44.9, # 3 each, 3 Refills, Maintenance, 04/08/23 15:20:00 EST, Powder, [facility], Partial fill upon patient request if the prescription is for a schedule II opioid drug., 1 puf... Start Date: 04/08/23 Status: Ordered Tylenol 325 mg oral tablet 325 mg, 1, tablet, By Mouth, 2 times a day, # 60 tablet, Refills 0, Tot. Refills 0, Maintenance, 12/13/16 12:48:45, Route to Pharmacy Electronically, [id number], [facility] [id number] Start Date: 12/13/16 Status: Ordered Ventolin HFA 108 mcg/inh inhalation aerosol with adapter 2 puffs, Inhalation, 4 times a day, PRN for wheezing, brand name medically necessary, # 18 Gm, 5 Refills, Maintenance, 01/04/23 13:28:00 EST, Aerosol, [facility], 157.6, cm, :24:00 EDT, Height Start Date: 01/04/23 Status: Ordered Problem List Condition Confirmation Course Effective Dates Status H ealth Status Informant Anxiety Confirmed Active Asthma Confirmed Active Oxygen dependent Confirmed Active Hypertension Confirmed Active Depression, major, in remission Confirmed Active Osteoarthritis Confirmed Active *[facility] [phone] 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
--- OUTSIDE RECORDS SUMMARY | 2023-07-07 11:26 | XMS_ITS | Continuity of Care Document ---
Author Organization [facility] Address [address] [place] [address]- Care Team Providers Care Measurement Operator Name Role Phone Wm CHAIDEZ, Carmen Harris Primary Care Physician [phone] [place]counter [facility] [place](s): 12/18/22 - 01/17/23 [facility] [address] [place] [address]- [place] Allergies, Adverse Reactions, Alerts Substance Reaction Severity Status codeine Active sulfa drugs rash Active Neosporin Active Tape tape-skin breakdown Active Immunizations Given and Recorded Vaccine Date Status Refusal Reason SARS-CoV-2 mRNA ([id number]-[id number]-pkvhu) vax 07/14/21 Given SARS-CoV-2 (COVID-19) mRNA BNT-162b2 [...] 5 Refills, Maintenance, 01/04/23 13:28:00 EST, Solution, [facility], Partial fill upon patient request if the prescription is for a schedule II opioid drug., 157.6,... Start Date: 01/04/23 Status: Ordered albuterol 0.083% inhalation solution 3 mL = 2.5 mg, Inhalation, Every 6 hours, PRN for wheezing, # 60 each, 4 Refills, Maintenance, 12/12/21 8:44:00 EDT, Solution, [facility]/pharmacy #[id number], 157.6, cm, 11/24/21 13:30:00 EDT, Height Start Date: 12/12/21 Status: Ordered azithromycin 500 mg oral tablet 1 tablet = 500 mg, By Mouth, Every Saturday, Saturday and Saturday, for 30 days, j44.9, # 13 tablet, 6Refills, Acute 08/06/23 13:25:00 EDT, 01/08/23 13:25:00 EST, Tablet, [facility], Partial fill upon patient request if the prescription... Start Date: 01/08/23 Stop Date: 08/06/23 Status: Ordered azithromycin 500 mg oral tablet 1 tablet = 500 mg, By Mouth, Every Saturday, Saturday and Saturday, for 180 days, # 78 tablet, 1 Refills, Acute 11/19/23 10:09:00 EDT, 11/24/22 10:09:00 EDT, Tablet, [facility]/pharmacy #[id number], Partial fill upon patient request if the prescription is for a sched... Start Date: 11/24/22 Stop Date: 11/19/23 Status: Ordered Calcitrate with D 315 mg-250 intl units oral tablet See Instructions, TAKE 1 TABLET BY MOUTH TWICE DAILY, # 60 tablet, 5 Refills, Soft Stop, 07/03/21 16:41:00 EDT, [facility] #[id number], TAKE 1 TABLET BY MOUTH TWICE DAILY, 157.6, cm, 10/14/20 13:53:00 EDT, Height Start Date: 07/03/21 Status: Ordered calcium (as citrate)-vitamin D 315 mg-250 intl units oral tablet 1 tablet, By Mouth, 2 times a day, # 60 tablet, 6 Refills, Maintenance, 01/07/23 6:56:00 EST, Tablet, [facility], Partial fill upon patient request [...] 5 Refills, Maintenance, 05/08/22 8:43:00 EDT, Tablet, [facility]/pharmacy #[id number], Partial fill upon patient request [...] capsule, 1 Refills, Maintenance, 01/07/23 6:54:00 EST, [facility], 157.6, cm, 11/26/22 9:24:00 EDT, Height Start Date: 01/07/23 Status: Ordered losartan 50 mg oral tablet 50 mg, 1, tablet, By Mouth, Daily, # 30 tablet, Refills 11, Tot. Refills 11, Maintenance, 01/07/23 6:54:00 EST, Route to Pharmacy Electronically, [facility], Partial fill upon patient request [...] 01/07/23 6:53:00 EST, Route to Pharmacy Electronically, [facility], 157.6, cm, 11/26/22 9:24:00EDT, Height Start Date: 01/07/23 Status: Ordered O2 evaluation O2 evaluation, See Instructions, # 1 each, Refills 11, Tot. Refills 11, Maintenance, updated O2 Rx for this patient for the following: Pt requires 2LPM at rest and 3 LPM with activity/portability. [facility] J44.9 J45.909, ... Start Date: 12/14/22 Status: Ordered omeprazole 20 mg oral enteric coated capsule 1 capsule, By Mouth, 2 times a day, # 180 capsule, 0 Refills, Maintenance, 01/07/23 6:53:00 EST, [facility], 157.6, cm, 11/26/22 9:24:00 EDT, [...] tablet, 1 Refills, Maintenance, 01/07/23 6:53:00 EST, [facility], 157.6, cm, 11/26/22 9:24:00 EDT, Height Start Date: 01/07/23 Status: Ordered Trelegy Ellipta 200 mcg-62.5 mcg-25 mcg/inh inhalation powder 1 puffs, Inhalation, Daily, at the same time every day, j44.9, # 1 each, 6 Refills, Maintenance, 10/10/22 15:08:00 EDT, Powder, [facility], Partial fill upon patient request if the prescription is for a schedule II opioid drug., 1 puf... Start Date: 10/10/22 Status: Ordered Tylenol 325 mg oral tablet 325 mg, 1, tablet, By Mouth, 2 times a day, # 60 tablet, Refills 0, Tot. Refills 0, Maintenance, 12/13/16 12:48:45, Route to Pharmacy Electronically, [id number], [id number] Start Date: 12/13/16 Status: Ordered Ventolin HFA 108 mcg/inh inhalation aerosol with adapter 2 puffs, Inhalation, 4 times a day, PRN for wheezing, brand name medically necessary, # 18 Gm, 5 Refills, Maintenance, 01/04/23 13:28:00 EST, Aerosol, [facility], 157.6, cm, 239:24:00 EDT, Height Start Date: 01/04/23 Status: Ordered Problem List Condition Confirmation Course Effective Dates Status H ealth Status Informant Anxiety Confirmed Active Asthma Confirmed Active Oxygen dependent Confirmed Active Hypertension Confirmed Active Depression, major, in remission Confirmed Active Osteoarthritis Confirmed Active *[facility] [phone] 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
--- OUTSIDE RECORDS SUMMARY | 2023-07-07 11:26 | XMS_ITS | Continuity of Care Document ---
Author Organization [facility] ter Address [address] [place] [address]- Care Team Providers Care Junior Staff Accountant Name Role Phone Wm CHAIDEZ, Carmen Harris Primary Care Physician Encounter [facility] [place] Date(s): 07/28/22 - 09/16/[address] [address] Attending Physician: Jerald Monzon MD Admitting Physician: Jerald Monzon MD Referring Physician: Bella Shelton MD Allergies, Adverse Reactions, Alerts Substance Reaction Severity Status codeine Active sulfa drugs rash Active Neosporin Active Tape tape-skin breakdown Active Immunizations Given and Recorded Vaccine Date Status Refusal Reason SARS-CoV-2 mRNA (kvaglwq-svez-fefpa) vax 07/14/21 Given SARS-CoV-2 (COVID-19) mRNA BNT-162b2 [...] Given 1Early/Late Reason: Accommodate D/C 2Admin Note: [facility] info given to patient Medications 02 [...] 5 Refills, Soft Stop, 07/03/21 16:41:00 EDT, [facility] #[id number], TAKE 1 TABLET BY MOUTH TWICE DAILY, [...] Refills, Maintenance, 05/08/22 8:43:00 EDT, Tablet, [facility]/pharmacy #[id number], Partial [...] 1 Refills, Maintenance, 06/18/22 14:19:00 EDT, [id number], 157.6, cm, 05/23/22 11:27:00 EDT, Height Start Date: 06/18/22 Status: Ordered losartan 50 mg oral tablet 50 mg, 1, tablet, By Mouth, Daily, # 30 tablet, Refills 11, Tot. Refills 11, Maintenance, 05/23/22 11:59:00 EDT, Route to Pharmacy Electronically, [facility]/pharmacy #[id number], Partial fill upon patient request if the prescription is for a schedule II opioid drSrinivas.. Start Date: 05/23/22 Status: Ordered magnesium oxide [...] 06/17/22 9:57:00 EDT, Route to Pharmacy Electronically, [facility], 157.6, cm, 05/23/22 11:27:00 EDT, Height Start Date: 06/17/22 Status: Ordered omeprazole 20 mg oral enteric coated capsule 1 capsule, By Mouth, 2 times a day, # 180 capsule, 0 Refills, Maintenance, 09/09/22 5:26:00 EDT, [facility], 157.6, cm, 07/12/22 16:25:00 EDT, Height Start [...] tablet, 1 Refills, Maintenance, 06/18/22 14:19:00 EDT, [id number], 157.6, cm, 05/23/22 11:27:00 EDT, Height Start Date: 06/18/22 Status: Ordered Trelegy Ellipta 200 mcg-62.5 mcg-25 mcg/inh inhalation powder 1 puffs, Inhalation, Daily, at the same time every day, # 1 each, 6 Refills, Maintenance, 07/12/22 16:19:00 EDT, Powder, [facility]/pharmacy #[id number], Partial fill upon patient request if the prescription is for a schedule II opioid drug., 1 puffs Inhalation Da... Start Date: 07/12/22 Status: Ordered Tylenol 325 mg oral tablet 325 mg, 1, tablet, By Mouth, 2 times a day, # 60 tablet, Refills 0, Tot. Refills 0, Maintenance, 12/13/16 12:48:45, Route to Pharmacy Electronically, [id number], [facility] [id number] Start Date: 12/13/16 Status: Ordered Ventolin HFA 108 mcg/inh inhalation aerosol with adapter 2 puffs, Inhalation, 4 times a day, PRN for wheezing, brand name medically necessary, # 8 Gm, 5 Refills, Maintenance, 12/18/21 12:07:00 EST, Aerosol, [facility] #2339, 157.6, cm, 11/24/21 13:30:00 EDT, Height Start Date: 12/18/21 Status: Ordered Problem List Condition Confirmation Course Effective Dates Status H ealth Status Informant Anxiety Confirmed Active Asthma Confirmed Active Oxygen dependent Confirmed Active Hypertension Confirmed Active Depression, major, in remission Confirmed Active Obese class I Confirmed Active Osteoarthritis Confirmed Active *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
--- OUTSIDE RECORDS SUMMARY | 2023-07-07 11:26 | XMS_ITS | Continuity of Care Document ---
Author Organization [facility] Jorje Gallego Shahram Address [address] [place] [address]- Care Team Providers Care Head Waiter Name Role Phone Wm CHAIDEZ, Carmen Harris Primary Care Physician [phone] Encounter [facility] [place] Date(s): 12/21/20 - 01/20/21 [facility] Jorje Gallego Adult [address] [place] [address]- Allergies, Adverse Reactions, Alerts Substance Reaction Severity [...] influenza virus vaccine, inactivated 2 12/14/14 Gi melvian influenza virus vaccine, inactivated 11/25/13 [place]enton rded [...] Mouth, Daily, # 90 tablet, 0 Refills, [facility] #[id number], 157.6, cm, 217:36:00 EST, Height Start Date: 10/14/20 Status: Ordered Calcitrate with D 315 mg-250 intl units oral tablet See Instructions, TAKE 1 TABLET BY MOUTH TWICE DAILY, # 60 tablet, 5 Refills, Soft Stop, 12/13/20 11:12:00 EDT, [facility] #[id number], TAKE 1 TABLET BY MOUTH TWICE DAILY, [...] 5 Refills, Maintenance, 12/22/20 13:54:00 EST, Tablet, [facility] #[id number], Partial fill upon patient request if the prescription is for a schedule II opioid drug., 1 tablet By Mouth Daily, 157.6, cm, 09... Start Date: 12/22/20 Status: Ordered fluticasone 50 mcg/inh nasal spray See Instructions, SHAKE LIQUID AND USE 1 SPRAY IN EACH NOSTRIL DAILY, # 16 Gm, 0 Refills, [facility] #[id number], 60, SHAKE LIQUID AND USE 1 SPRAY IN EACH NOSTRIL DAILY, 157.6, cm, 10/14/20 13:53:00 EDT, Height Start Date: 12/13/20 Status: Ordered hydrOXYzine pamoate 25 mg oral capsule 1 capsule, By Mouth, 2 times a day, PRN NEEDED FOR ANXIETY, for 30 days, # 60 capsule, 5 Refills, Acute 04/12/21 13:40:00 EST, 10/14/20 13:40:00 EDT, [facility] #[id number], 157.6, cm, 10/14/20 13:12:00 EDT, Height Start Date: 10/14/20 Stop Date: 04/12/21 Status: Ordered lisinopril 10 mg oral tablet 1, tablet, By Mouth, Daily, # 90 tablet, Refills 3, Tot. Refills 3, Maintenance, 12/05/20 10:00:00 EDT, Route to Pharmacy Electronically, [facility] #[id number], 157.6, cm, 10/14/20 13:53:00 EDT, Height Start Date: 12/05/20 Status: Ordered melatonin 10 mg oral tablet, disintegrating 1 tablet = 10 mg, By Mouth, Daily at bedtime, for 30 days, # 30 tablet, 1 Refills, Acute 02/11/21 11:12:00 EST, 12/13/20 11:12:00 EDT, [facility] #[id number], Partial fill upon patient request if the [...] Replace Required Details, Route to Pharmacy Electronically, [facility] #[id number], 157.6, cm, 0... Start Date: 12/13/20 Status: Ordered omeprazole 20 mg oral enteric coated capsule 1 capsule, By Mouth, 2 times a day, # 60 capsule, 2 Refills, Maintenance, 10/14/20 13:40:00 EDT, [facility] #[id number], 157.6, cm, 10/14/20 13:12:00 EDT, Height Start [...] Mouth, Daily, # 45 tablet, 5 Refills, [facility] #97029, 157.6, cm, 10/14/20 13:53:00 EDT, Height Start Date: 11/21/20 Status: Ordered Tylenol 325 mg oral tablet 325 mg, 1, tablet, By Mouth, 2 times a day, # 60 tablet, Refills 0, Tot. Refills 0, Maintenance, 12/13/16 12:48:45, Route to Pharmacy Electronically, [id number], [facility] Start Date: 12/13/16 Status: Ordered Ventolin HFA 108 mcg/inh inhalation aerosol with adapter 2 puffs, Inhalation, 4 times a day, PRN for wheezing, # 8 Gm, 5 Refills, Maintenance, 11/30/20 12:14:00 EDT, Aerosol, [facility] #19269, 157.6, cm, 10/14/20 13:53:00 EDT, Height Start Date: 11/30/20 Status: Ordered Wixela Inhub 500 mcg-50 mcg inhalation powder 1 puffs, Inhalation, 2 times a day, # 60 each, 5 Refills, [facility] #53238, 30, INHALE 1PUFF BY MOUTH TWICE DAILY, 157.6, cm, 10/14/20 13:53:00 EDT, Height Start Date: 11/28/20 Status: Ordered Problem List Condition Effective Dates Status Health Status Inform ant Anxiety(Confirmed) Active Asthma(Confirmed) Active COPD(Confirmed) Active Oxygen dependent(Confirmed) Active Hypertension(Confirmed) Active Depression, major, in remission(Confirmed) Active Osteoarthritis(Confirmed) Active *[facility] [phone] 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
--- OUTSIDE RECORDS SUMMARY | 2023-07-07 11:26 | XMS_ITS | Continuity of Care Document ---
Author Organization [facility] Julián Shahram Address [address] [place] [address]- Care Team Providers Care [employer] Skills Name Role Phone Wm CHAIDEZ, Carmen Harris Primary Care Physician En[place] [facility] [place](s): 12/25/19 - 01/24/20 [facility] Adult [address] [place] [address]- Allergies, Adverse Reactions, Alerts Substance Reaction Severity [...] 08/18/19 16:35:00 EDT, Route to Pharmacy Electronically, [facility] #[id number], 157.6, cm, 07/20/19 9:46:00 EDT, Height, 84.9, kg, 1... Start Date: 08/18/19 Status: Ordered anastrozole 1 mg oral tablet 1 tablet = 1 mg, By Mouth, Daily, # 90 tablet, 3 Refills, Maintenance, 07/20/19 10:52:00 EDT, Tablet, [facility] #[id number], 157.6, cm, 07/20/19 9:46:00 EDT, Height, 84.9, [...] Refills, Soft Stop, 12/25/19 15:15:00 EST, Tablet, [facility] #[id number], Partial fill upon patient request, 157.6,cm, 12/25/19 13:55:00 EST, Height Start Date: 12/25/19 Status: Ordered Calcitrate with D 315 mg-250 intl units oral tablet See Instructions, TAKE 1 TABLET BY MOUTH TWICE DAILY, # 60 tablet, 11 Refills, Soft Stop, 08/10/19 7:50:00 EDT, [facility] #[id number], TAKE 1 TABLET BY MOUTH TWICE DAILY, 157.6, cm, 07/20/19 9:46:00 EDT, Height, 84.9, kg, 11/18/17 10:16:00 EDT,... Start Date: 08/10/19 Status: Ordered Flonase 50 mcg/inh nasal spray 1 sprays, Nares, Both, 2 times a day, # 1 each, 0 Refills, Maintenance, 03/22/15 15:02:47, [place], 1sprays Nares, Both 2 times a day,x30 days Start Date: 03/22/15 Stop Date: 04/21/15 Status: Ordered ibuprofen 600 mg oral tablet 600 mg, 1, tablet, By Mouth, 2 times a day, # 60 tablet, Refills 0, Tot. Refills 0, Maintenance, 12/13/16 12:53:25, Route to Pharmacy Electronically, [id number], [facility] Start Date: 12/13/16 Status: Ordered Incruse Ellipta 62.5 mcg/inh inhalation powder See Instructions, INHALE 1 PUFF BY MOUTH EVERY 24 HOURS DOSES SHOULD BE TAKEN AT LEAST 24 HOURS APART, # 30 each, 5 Refills, Soft Stop, 10/21/19 16:07:00 EDT, [facility] #[id number], 157.6, cm, 07/20/19 9:46:00 EDT, Height, 84.9, kg, 11/18/17 10:... Start Date: 10/21/19 Status: Ordered lisinopril 10 mg oral tablet 10 mg, 1, tablet, By Mouth, Daily, for 90 days, # 90 tablet, Refills 0, Tot. Refills 0, Hard Stop 04/01/20 11:48:00 EST, 01/02/20 11:48:00 EST, Route to Pharmacy Electronically, [facility] #85234, 157.6, cm, 12/25/19 13:55:00 EST, Height Start Date: 01/02/20 Stop Date: 04/01/20 Status: Ordered magnesium oxide 400 mg oral tablet 1 tablet = 400 mg, By Mouth, Daily, for 30 days, # 30 tablet, 6 Refills, Acute 02/15/20 10:51:00 EST, 07/20/19 10:51:00 EDT, [facility] #[id number], 157.6, cm, 07/20/19 9:46:00 EDT, Height, 84.9, [...] Replace Required Details, Route to Pharmacy Electronically, [id number], [facility]... Start Date: 01/07/19 Status: Ordered omeprazole 20 mg oral enteric coated capsule 1 capsule, By Mouth, 2 times a day, [facility], # 60 capsule, 0 Refills, Maintenance, 01/20/20 8:04:00 EST, [facility] #77511, 157.6, cm, 12/25/19 13:55:00 EST, Height Start [...] 5 Refills, Soft Stop, 10/21/19 16:40:00 EDT, [facility] #[id number], 157.6, cm, 07/20/19 9:46:00 EDT, Height, 84.9, kg, 11/18/17 10:16:00 EDT, Dry Weight Start Date: 10/21/19 Status: Ordered Tylenol 325 mg oral tablet 325 mg, 1, tablet, By Mouth, 2 times a day, # 60 tablet, Refills 0, Tot. Refills 0, Maintenance, 12/13/16 12:48:45, Route to Pharmacy Electronically, [id number], [facility] [address] Start Date: 12/13/16 Status: Ordered Ventolin HFA 108 mcg/inh inhalation aerosol with adapter 2 puffs, Inhalation, 4 times a day, PRN for wheezing, # 8 Gm, 5 Refills, Maintenance, 06/29/19 14:41:00 EDT, Aerosol, [facility] #[id number], 157.6, cm, 06/29/19 11:18:00 EDT, Height, 84.9, kg, 11/18/17 10:16:00 EDT, Dry Weight Start Date: 06/29/19 Status: Ordered Wixela Inhub 500 mcg-50 mcg inhalation powder 1 puffs, Inhalation, 2 times a day, # 60 each, 3 Refills, Maintenance, 10/28/19 8:50:00 EDT, [facility] #85409, 30, INHALE 1 PUFF BY MOUTH TWICE DAILY, 157.6, cm, 07/20/19 9:46:00 EDT, Height, 84.9, kg, 11/18/17 10:16:00 EDT, Dry Weight Start Date: 10/28/19 Status: Ordered Problem List Condition Effective Dates Status Health Status Inform ant Anxiety(Confirmed) Active Asthma(Confirmed) Active COPD(Confirmed) Active Oxygen dependent(Confirmed) Active Hypertension(Confirmed) Active Osteoarthritis(Confirmed) Active *[facility] [phone] 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
--- OUTSIDE RECORDS SUMMARY | 2023-07-07 11:26 | XMS_ITS | Continuity of Care Document ---
Author Organization [facility] Address [address] [place] [address]- Care Team Providers Care Technical Manager [employer] Name Role Phone Wm CHAIDEZ, Carmen Harris Primary Care Physician [phone] [place] [facility] [place] 09/29/21 - 10/29/21 [facility] [address] [place] [address] Allergies, Adverse Reactions, Alerts Substance Reaction Severity Status codeine Active sulfa drugs rash Active Neosporin Active Tape tape-skin breakdown Active Immunizations Given and Recorded Vaccine Date Status Refusal Reason SARS-CoV-2 mRNA (pogddrm-qfun-cfeke) vax 07/14/21 Given SARS-CoV-2 (COVID-19) mRNA BNT-162b2 [...] Stop 04/02/22 10:38:00 EST, 04/07/21 10:38:00 EST, [facility] #[id number], 157.6, cm, 10/14/20 13:53:00 EDT, Height Start Date: 04/07/21 Stop Date: 04/02/22 Status: Ordered Calcitrate with D 315 mg-250 intl units oral tablet See Instructions, TAKE 1 TABLET BY MOUTH TWICE DAILY, # 60 tablet, 5 Refills, Soft Stop, 07/03/21 16:41:00 EDT, [facility] #[id number], TAKE 1 TABLET BY MOUTH TWICE DAILY, [...] 5 Refills, Maintenance, 07/14/21 13:10:00 EDT, Tablet, [facility] #[id number], Partial fill upon patient request if the prescription is for a schedule II opioid drug., 1 tablet By Mouth Daily, 157.6, cm, 06... Start Date: 07/14/21 Status: Ordered hydrOXYzine pamoate 25 mg oral capsule 1 capsule, By Mouth, 2 times a day, PRN NEEDED FOR ANXIETY, for 30 days, schedule physical with Carmen Burk MINK RANCHER, # 60 capsule, 5 Refills, Acute 12/30/21 9:11:00 EST, 07/03/21 9:11:00 EDT, [facility] #[id number], 157.6, cm, 10/14/20 13:53:00... Start Date: 07/03/21 Stop Date: 12/30/21 Status: Ordered Incruse Ellipta 62.5 mcg/inh inhalation powder 1 each, Inhalation, Every 24 hours, doses should be taken at least 24 hours apart, [id number], # 1 each, 6 Refills, Maintenance, 09/29/21 16:43:00 EDT, Powder, [facility] #[id number], Partial fill upon patient request if the prescription is for a gloria... Start Date: 09/29/21 Status: Ordered lisinopril 10 mg oral tablet 1, tablet, By Mouth, Daily, # 90 tablet, Refills 3, Tot. Refills 3, Maintenance, 07/05/21 8:57:00 EDT, Route to Pharmacy Electronically, [facility] #[id number], 157.6, cm, 10/14/20 13:53:00 EDT,Height Start Date: 07/05/21 Status: Ordered magnesium oxide 400 mg oral tablet 1 tablet = 400 mg, By Mouth, Daily, for 30 days, # 30 tablet, 11 Refills, Acute 07/09/22 13:16:00 EDT, 07/14/21 13:16:00 EDT, [facility] #[id number], 157.6, cm, 07/14/21 12:48:00 EDT, Height Start [...] tablet, Refills 1, Route to Pharmacy Electronically, [facility] #[id number], 157.6, cm, 07/14/21 12:48:00 EDT, Height Start Date: 09/19/21 Status: Ordered omeprazole 20 mg oral enteric coated capsule 1 capsule, By Mouth, 2 times a day, # 180 capsule, 0 Refills, Maintenance, 07/03/21 16:41:00 EDT, [facility] #[id number], Please use this script, 157.6, cm, 10/14/20 [...] 45 tablet, 5 Refills, 07/05/21 8:57:00 EDT, [facility] #[id number], 157.6, cm, 10/14/20 13:53:00 EDT, Height Start Date: 07/05/21 Status: Ordered traZODone 50 mg oral tablet 50 mg, 1, tablet, By Mouth, Daily at bedtime, # 30 tablet, Refills 6, Tot. Refills 6, Maintenance, 07/14/21 13:05:00 EDT, Route to Pharmacy Electronically, [facility] #[id number], Partial fill upon patient request if the prescription is for a gloria... Start Date: 07/14/21 Stop Date: 02/09/22 Status: Ordered Tylenol 325 mg oral tablet 325 mg, 1, tablet, By Mouth, 2 times a day, # 60 tablet, Refills 0, Tot. Refills 0, Maintenance, 12/13/16 12:48:45, Route to Pharmacy Electronically, [id number], [facility] [address] Start Date: 12/13/16 Status: Ordered Ventolin HFA 108 mcg/inh inhalation aerosol with adapter 2 puffs, Inhalation, 4 times a day, PRN for wheezing, # 8 Gm, 5 Refills, Maintenance, 05/03/21 10:58:00 EDT, Aerosol, [facility] #[id number], 157.6, cm, 10/14/20 13:53:00 EDT, Height Start Date: 05/03/21 Status: Ordered Wixela Inhub 500 mcg-50 mcg inhalation powder 1 puffs, Inhalation, 2 times a day, # 60 each, 5 Refills, [facility] #[id number], 30, INHALE 1PUFF BY MOUTH TWICE DAILY, 157.6, cm, 10/14/20 13:53:00 EDT, Height Start Date: 06/01/21 Status: Ordered Problem List Condition Effective Dates Status Health Status Inform ant Anxiety(Confirmed) Active Asthma(Confirmed) Active Oxygen dependent(Confirmed) Active Hypertension(Confirmed) Active Depression, major, in remission(Confirmed) Active Obese class II(Confirmed) Active Osteoarthritis(Confirmed) Active *[facility] [phone] CARE MANAG ER TRIXIE LEÓN(Confirmed) Active PTSD [...] Personnel Name: Wm CHAIDEZ, Carmen Harris Address: [address] [place] [address] [place] [address]-
--- OUTSIDE RECORDS SUMMARY | 2023-07-07 11:26 | XMS_ITS | Continuity of Care Document ---
Author Organization [facility] Shahram lt Address [address] [place] [address]- Care Team Providers Care Cyber Systems Operations Specialist Name Role Phone Wm CHAIDEZ, Carmen Harris Primary Care Physician Encounter [facility] [place] Date(s): 07/20/19 - 08/19/19 [facility] Adult [address] [place] [address]- [facility] Attending Physician: Lori Moulton Admitting Physician: [...] 05/05/19 16:28:00 EDT, Route to Pharmacy Electronically, [id number], [facility] #[id number], 157.6, cm, 01/07/19 11:31:00 EST, [place]... Start [...] 08/18/19 16:35:00 EDT, Route to Pharmacy Electronically, [facility] #[id number], 157.6, cm, 07/20/19 9:46:00 EDT, Height, 84.9, kg, 1... Start Date: 08/18/19 Status: Ordered anastrozole 1 mg oral tablet 1 tablet = 1 mg, By Mouth, Daily, # 90 tablet, 3 Refills, Maintenance, 07/20/19 10:52:00 EDT, Tablet, [facility] #70715, 157.6, cm, 07/20/19 9:46:00 EDT, Height, 84.9, [...] 11 Refills, Soft Stop, 08/10/19 7:50:00 EDT, [facility] #15681, TAKE 1 TABLET BY MOUTH TWICE DAILY, 157.6, cm, 07/20/19 9:46:00 EDT, Height, 84.9, kg, 11/18/17 10:16:00 EDT,... Start Date: 08/10/19 Status: Ordered Flonase 50 mcg/inh nasal spray 1 sprays, Nares, Both, 2 times a day, # 1 each, 0 Refills, Maintenance, 03/22/15 15:02:47, [place], 1sprays Nares, Both 2 times a day,x30 days Start Date: 03/22/15 Stop Date: 04/21/15 Status: Ordered ibuprofen 600 mg oral tablet 600 mg, 1, tablet, By Mouth, 2 times a day, # 60 tablet, Refills 0, Tot. Refills 0, Maintenance, 12/13/16 12:53:25, Route to Pharmacy Electronically, [id number], [facility] [address] Start Date: 12/13/16 Status: Ordered Incruse Ellipta 62.5 mcg/inh inhalation powder See Instructions, INHALE 1 PUFF BY MOUTH EVERY 24 HOURS DOSES SHOULD BE TAKEN AT LEAST 24 HOURS APART, # 30 each, 5 Refills, Soft Stop, 05/05/19 16:28:00 EDT, [facility] #[id number], 157.6, cm, 01/07/19 11:31:00 EST, Height, 84.9, kg, 11/18/17 10... Start Date: 05/05/19 Status: Ordered lisinopril 10 mg oral tablet 10 mg, 1, tablet, By Mouth, Daily, for 90 days, # 90 tablet, Refills 3, Tot. Refills 3, Hard Stop 01/02/20 11:48:55 EST, 01/07/19 11:48:55 EST, Route to Pharmacy Electronically, [id number], [facility] #[id number] Start Date: 01/07/19 Stop Date: 01/02/20 Status: Ordered magnesium oxide 400 mg oral tablet 1 tablet = 400 mg, By Mouth, Daily, for 30 days, # 30 tablet, 6 Refills, Acute 02/15/20 10:51:00 EST, 07/20/19 10:51:00 EDT, [facility] #[id number], 157.6, cm, 07/20/19 9:46:00 EDT, Height, 84.9, [...] Replace Required Details, Route to Pharmacy Electronically, [id number], [facility] Start Date: 01/07/19 Status: Ordered omeprazole 20 mg oral enteric coated capsule 1 capsule = 20 mg, By Mouth, 2 times a day, # 60 capsule, 3 Refills, Maintenance, 06/30/19 12:23:00EDT, EC Capsule, [facility] #28979, 157.6, cm, 06/29/19 11:18:00 EDT, Height, 84.9, [...] 3 Refills, Soft Stop, 06/29/19 13:26:00 EDT, [facility] #[id number], 157.6, cm, 06/29/19 11:18:00 EDT, Height, 84.9, kg, 11/18/17 10:16:00 EDT, Dry Weight Start Date: 06/29/19 Status: Ordered Tylenol 325 mg oral tablet 325 mg, 1, tablet, By Mouth, 2 times a day, # 60 tablet, Refills 0, Tot. Refills 0, Maintenance, 12/13/16 12:48:45, Route to Pharmacy Electronically, [id number], [facility] [address] Start Date: 12/13/16 Status: Ordered Ventolin HFA 108 mcg/inh inhalation aerosol with adapter 2 puffs, Inhalation, 4 times a day, PRN for wheezing, # 8 Gm, 5 Refills, Maintenance, 06/29/19 14:41:00 EDT, Aerosol, [facility] #51596, 157.6, cm, 06/29/19 11:18:00 EDT, Height, 84.9, [...] Oxygen dependent(Confirmed) Active Hypertension(Confirmed) Active Osteoarthritis(Confirmed) Active *[facility] [phone] CARE MANAG ER TRIXIE MAU(Confirmed) Active PTSD [...]
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
--- OUTSIDE RECORDS SUMMARY | 2023-07-07 11:26 | XMS_ITS | Continuity of Care Document ---
Author Organization [facility] Address [address] [place] [id number] Care Team Providers Care Drafting Detailer Name Role Phone Wm CHAIDEZ, Carmen Harris Primary Care Physician Encounter [facility] Date(s): 11/17/21 - 03/17/22 [facility] [address] [id number] Attending Physician: Bella Shelton MD Admitting Physician: Bella Shelton MD Allergies, Adverse Reactions, Alerts Substance Reaction Severity Status codeine Active Neosporin Active Tape tape-skin breakdown Active sulfa drugs rash Active Immunizations Given and Recorded Vaccine Date Status Refusal Reason SARS-CoV-2 mRNA (homjngx-xpgr-otjod) vax 07/14/21 Given SARS-CoV-2 (COVID-19) mRNA BNT-162b2 [...] Given 1Early/Late Reason: Accommodate D/C 2Admin Note: [facility] info given to patient Medications 02 [...] Refills, Maintenance, 12/12/21 8:44:00 EDT, Solution, [facility]/pharmacy #[id number], 157.6, cm, 11/24/21 [...] 5 Refills, Soft Stop, 07/03/21 16:41:00 EDT, [facility] #[id number], TAKE 1 TABLET BY MOUTH TWICE DAILY, [...] 5 Refills, Maintenance, 12/12/21 8:49:00 EDT, Tablet, [facility]/pharmacy #[id number], Partial fill upon patient request if the prescription is for a schedule II opioid drug., 1 tablet By Mouth Daily, 157.6, cm, 11/24/21 13:... Start Date: 12/12/21 Status: Ordered hydrOXYzine pamoate 25 mg oral capsule 1 capsule, By Mouth, 2 times a day, PRN NEEDED FOR ANXIETY, for 30 days, schedule physical with Carmen Burk TABLE SETTER, # 60 capsule, 5 Refills, Acute 06/10/22 8:47:00 EDT, 12/12/21 8:47:00 EDT, [facility]/pharmacy #[id number], 157.6, cm, 11/24/21 13:30:00 EDT, Height Start Date: 12/12/21 Stop Date: 06/10/22 Status: Ordered Incruse Ellipta 62.5 mcg/inh inhalation powder 1 each, Inhalation, Every 24 hours, doses should be taken at least 24 hours apart, [id number], # 1 each, 6 Refills, Maintenance, 12/12/21 8:50:00 EDT, Powder, [facility]/pharmacy #[id number], Partial fill upon patient request if the prescription is for a schedule II o... Start Date: 12/12/21 Status: Ordered lisinopril 10 mg oral tablet 1, tablet, By Mouth, Daily, # 90 tablet, Refills 3, Tot. Refills 3, Maintenance, 12/12/21 8:47:00 EDT, Route to Pharmacy Electronically, [facility]/pharmacy #[id number], 157.6, cm, 11/24/21 [...] 12/12/21 8:48:00 EDT, [id number], 157.6, cm, 11/24/21 13:30:00 EDT, Height Start Date: 12/12/21 Status: Ordered omeprazole 20 mg oral enteric coated capsule 1 capsule, By Mouth, 2 times a day, # 180 capsule, 0 Refills, Maintenance, 03/08/22 18:50:00 EST, [id number], 157.6, cm, 11/24/21 13:30:00 EDT, Height Start [...] tablet, 5 Refills, 12/12/21 8:49:00 EDT, [facility]/pharmacy #[id number], 157.6, cm, 11/24/21 13:30:00 EDT, Height Start Date: 12/12/21 Status: Ordered traZODone 50 mg oral tablet 50 mg, 1, tablet, By Mouth, Daily at bedtime, # 30 tablet, Refills 6, Tot. Refills 6, Maintenance, 12/12/21 8:50:00 EDT, [facility]ically, [id number], Partial fill upon patient request if the prescription is for a schedule II o... Start Date: 12/12/21 Stop Date: 07/10/22 Status: Ordered Tylenol 325 mg oral tablet 325 mg, 1, tablet, By Mouth, 2 times a day, # 60 tablet, Refills 0, Tot. Refills 0, Maintenance, 12/13/16 12:48:45, Route to Pharmacy Electronically, [id number], [facility] [id number] Start Date: 12/13/16 Status: Ordered Ventolin HFA [...] each, 5 Refills, 12/12/21 8:47:00 EDT, [facility]/pharmacy #[id number],30, 1 puffs Inhalation 2 times a day, 157.6, cm, 11/24/21 13:30:00 EDT, Height Start Date: 12/12/21 Status: Ordered Problem List Condition Confirmation Course Effective Dates Status H ealth Status Informant Anxiety Confirmed Active Asthma Confirmed Active Oxygen dependent Confirmed Active Hypertension Confirmed Active Depression, major, in remission Confirmed Active Obese class II Confirmed Active Osteoarthritis Confirmed Active *[facility] [phone] 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
--- OUTSIDE RECORDS SUMMARY | 2023-07-07 11:26 | XMS_ITS | Continuity of Care Document ---
Author Organization [facility] Address [address] [place] [id number]- Care Team Providers Care Efficiency Clerk Name Role Phone Wm CHAIDEZ, Carmen Harris [id number]): [facility] - 08/01/19 [facility] [address] [place] [address] [facility] Attending Physician: Syd Jones MD Admitting Physician: Syd Jones MD Referring Physician: Wm CHAIDEZ, Carmen Harris [...] 05/05/19 16:28:00 EDT, Route to Pharmacy Electronically, [id number], [facility] #[id number], 157.6, cm, 01/07/19 11:31:00 EST, [place]... Start [...] 07/20/19 10:50:00 EDT, Route to Pharmacy Electronically, [facility] #[id number], 157.6, cm, 07/20/19 9:46:00 EDT, Height, 84.9, kg, 1... Start Date: 07/20/19 Status: Ordered anastrozole 1 mg oral tablet 1 tablet = 1 mg, By Mouth, Daily, # 90 tablet, 3 Refills, Maintenance, 07/20/19 10:52:00 EDT, Tablet, [facility] #[id number], 157.6, cm, 07/20/19 9:46:00 EDT, Height, 84.9, [...] 1 Refills, Soft Stop, 05/25/19 11:29:00 EDT, [facility] #[id number], TAKE 1 TABLET BY MOUTH TWICE DAILY, 157.6, cm, 01/07/19 11:31:00 EST, Height, 84.9, kg, 11/18/17 10:16:00 EDT,... Start Date: 05/25/19 Status: Ordered Flonase 50 mcg/inh nasal spray 1 sprays, Nares, Both, 2 times a day, # 1 each, 0 Refills, Maintenance, 03/22/15 15:02:47, [place], 1sprays Nares, Both 2 times a day,x30 days Start Date: 03/22/15 Stop Date: 04/21/15 Status: Ordered ibuprofen 600 mg oral tablet 600 mg, 1, tablet, By Mouth, 2 times a day, # 60 tablet, Refills 0, Tot. Refills 0, Maintenance, 12/13/16 12:53:25, Route to Pharmacy Electronically, [id number], [facility] [id number] Start Date: 12/13/16 Status: Ordered Incruse Ellipta 62.5 mcg/inh inhalation powder See Instructions, INHALE 1 PUFF BY MOUTH EVERY 24 HOURS DOSES SHOULD BE TAKEN AT LEAST 24 HOURS APART, # 30 each, 5 Refills, Soft Stop, 05/05/19 16:28:00 EDT, [facility] #[id number], 157.6, cm, 01/07/19 11:31:00 EST, Height, 84.9, kg, 11/18/17 10... Start Date: 05/05/19 Status: Ordered lisinopril 10 mg oral tablet 10 mg, 1, tablet, By Mouth, Daily, for 90 days, # 90 tablet, Refills 3, Tot. Refills 3, Hard Stop 01/02/20 11:48:55 EST, 01/07/19 11:48:55 EST, Route to Pharmacy Electronically, [id number], [facility] #[id number] Start Date: 01/07/19 Stop Date: 01/02/20 Status: Ordered magnesium oxide 400 mg oral tablet 1 tablet = 400 mg, By Mouth, Daily, for 30 days, # 30 tablet, 6 Refills, Acute 02/15/20 10:51:00 EST, 07/20/19 10:51:00 EDT, [facility] #[id number], 157.6, cm, 07/20/19 9:46:00 EDT, Height, 84.9, [...] Replace Required Details, Route to Pharmacy Electronically, [id number], [facility]... Start Date: 01/07/19 Status: Ordered omeprazole 20 mg oral enteric coated capsule 1 capsule = 20 mg, By Mouth, 2 times a day, # 60 capsule, 3 Refills, Maintenance, 06/30/19 12:23:00EDT, EC Capsule, [facility] #[id number], 157.6, cm, 06/29/19 11:18:00 EDT, Height, 84.9, [...] 3 Refills, Soft Stop, 06/29/19 13:26:00 EDT, [facility] #[id number], 157.6, cm, 06/29/19 11:18:00 EDT, Height, 84.9, kg, 11/18/17 10:16:00 EDT, Dry Weight Start Date: 06/29/19 Status: Ordered Tylenol 325 mg oral tablet 325 mg, 1, tablet, By Mouth, 2 times a day, # 60 tablet, Refills 0, Tot. Refills 0, Maintenance, 12/13/16 12:48:45, Route to Pharmacy Electronically, [id number], [facility] [id number] Start Date: 12/13/16 Status: Ordered Ventolin HFA 108 mcg/inh inhalation aerosol with adapter 2 puffs, Inhalation, 4 times a day, PRN for wheezing, # 8 Gm, 5 Refills, Maintenance, 06/29/19 14:41:00 EDT, Aerosol, [facility] #[id number], 157.6, cm, 06/29/19 11:18:00 EDT, Height, 84.9, [...] Oxygen dependent(Confirmed) Active Hypertension(Confirmed) Active Osteoarthritis(Confirmed) Active *[facility] [phone] CARE MANAG ER TRIXIE LEÓN(Confirmed) Active PTSD [...]
[2023-07-07 12:09] LABS: Venous Blood Gas Refer to POC result
[2023-07-07 12:10] LABS: VBG Base Excess 9.1 mmol/L; VBG HCO3 37 mmol/L (22-26); VBG pCO2 64 mmHg; VBG pH 7.36 (7.32-7.43); VBG pO2 135 mmHg
[2023-07-07 14:00] LABS: COVID-19 Test Negative (Negative); IDNOW Serial# 152EDE1D
[2023-07-07 14:04] LABS: IDNOW Serial# 08D9AD1C; Influenza A Negative (Negative); Influenza B2 Negative (Negative)
--- NOTE | 2023-07-07 15:56 | PM.IMHP ---
History of Present Illness Date of Service: 07/07/23 [facility] Chief Complaint: sob, leyva 63-year-old female with pertinent history of breast cancer, essential hypertension, mood disorder, chronic hypoxemic respiratory failure due to COPD on baseline 2 L supplemental oxygen presented to the ED from [facility] where she has been residing since recent admission for evaluation of worsening shortness of breath including dyspnea on exertion that worsened acutely this morning. The patient has had 2 recent admissions for acute decompensation of COPD with acute on chronic hypoxemic hypercapnic respiratory failure from 06/10-06/13 and again from 06/15-06/20 where she required intubation and subsequent bipap therapies and was also found to have human metapneumovirus. She was discharged to [facility] with prednisone, theophylline and reports symptoms had been improving until this morning when she became acutely dyspneic with exertion. She states she has had productive cough with yellow sputum production which is different than her chronic cough at baseline. No fevers, chills, sore throat, nasal congestion, abdominal pain, nausea, vomiting, dysuria, hematuria, lightheadedness, wheezing, chest pain. She does report she had an episode of urinary incontinence this morning which is not her baseline. On arrival, EMS noted hypoxia and was placed on 100% oxygen via non-rebreather and was transitioned to CPAP. On arrival to the ED, patient was reported to have been in respiratory distress and tripoding and was placed on BiPAP. Was weaned down to CPAP and also received IV methylprednisolone, magnesium, DuoNebs, and IV Zosyn. She has been weaned to baseline 3 L supplemental O2. Chest x-ray shows mild vascular congestion, diffuse interstitial opacities, possible mild interstitial infiltrate vs edema. No effusions. No leukocytosis. Renal function electrolyte levels normal. Troponin detectable but within normal limits. BNP 33. She will be admitted for further evaluation and management of acute COPD exacerbation with acute on chronic hypercapnic hypoxemic respiratory failure. Review of Systems Review of Systems: Yes all other systems are reviewed and are negative [facility] Medical History MDD (major depressive disorder), recurrent episode, moderate PTSD (post-traumatic stress disorder) Respiratory failure Respiratory failure with hypoxia COPD (chronic obstructive pulmonary disease) Hypertension Breast CA Surgical History H/O lumpectomy Social History Household Members: Family Housing: House Do you presently have visiting nurse or other home services: Yes (daughter is OB GYN PHYSICIAN ASSISTANT) Unable to assess alcohol history related to: Unable to respond Alcohol intake: former Patient Tobacco Use Status: Former Tobacco user Advance Directives: Yes Advance Directives on File: Yes Advance Directives Date on File: 04/05/22 service: No Current occupational status: disabled Meds Allergies Allergy/AdvReac Type Severity Reaction Status Date / Time Sulfa (Sulfonamide Allergy Mild RASH Verified 07/07/23 10:41 Antibiotics) codeine [Codeine] AdvReac Mild NEAR Verified 07/07/23 10:41 SYNCOPE epoprostenol [From Flolan] AdvReac Mild NAUSEA & Verified 07/07/23 10:41 VOMITING Home Medications ?Medication ?Instructions ?Recorded ?Confirmed ?Last Taken ?Type albuterol sulfate 90 mcg/actuation 2 puff inhalation Q6H PRN wheezing 02/05/20 06/16/23 06/07/23 History aerosol inhaler montelukast 10 mg tablet 1 tab PO BEDTIME 02/05/20 06/16/23 06/07/23 History omeprazole 20 mg capsule,delayed 1 cap PO BID@0630,1630 02/05/20 06/16/23 06/07/23 History release sertraline 100 mg tablet 1.5 tab PO DAILY 02/05/20 06/16/23 06/07/23 History hydroxyzine pamoate 25 mg capsule 1 cap PO BID PRN Anxiety 03/26/22 06/16/23 06/07/23 History calcium citrate 315 mg 1 tab PO BID 06/11/23 06/16/23 06/07/23 History calcium-vitamin D3 6.25 mcg (250 unit) tablet fluticasone fur. 200 mcg-umeclid 1 ea inhalation DAILY 06/11/23 06/16/23 06/07/23 History 62.5 mcg-vilant 25 mcg inhalat.powder (Trelegy Ellipta) losartan 50 mg tablet 50 mg PO DAILY 06/11/23 06/16/23 06/07/23 History Physical Exam Vital Signs and Narrative: Vital Signs: Last Vital Signs Temp 97.9 F 07/07/23 15:09 Pulse 102 H 07/07/23 15:09 Resp 21 H 07/07/23 15:09 BP 112/71 07/07/23 15:09 Pulse Ox 92 07/07/23 15:09 O2 Del Method Nasal Cannula 07/07/23 15:09 O2 Flow Rate 3 07/07/23 15:09 FiO2 30 07/07/23 11:53 BMI result Body Mass Index 38.1 Constitutional - Awake and Alert, No apparent distress Eyes - PERRLA, EOMI Cardiovascular - S1S2, RRR, minimal rle edema. No jvd Respiratory - Normal lung expansion, Normal respiratory effort, No respiratory distress, dimished lung sounds bilaterally with scattered crackles bilateral lower lobes Gastrointestinal - NT / ND; +BS; No rebound or guarding - No CVA tenderness Extremities - no calf tenderness bilaterally, no swelling Skin - Warm/Dry Neurological - Alert & oriented x3 Psychological - Appropriate affect Results Labs 07/07/23 10:19 07/07/23 10:19 Labs: Laboratory Results - last 24 hr 07/07/23 07/07/23 07/07/23 10:19 10:20 12:03 MCV 95.6 MCH 30.3 MCHC 31.7 RDW 13.6 Plt Count 156 L D MPV 9.9 Immature Gran % (Auto) 0.8 H Neut % (Auto) 79.0 H Lymph % (Auto) 8.9 L Lawrence % (Auto) 9.7 Eos % (Auto) 1.0 Baso % (Auto) 0.6 Lymph # (Auto) 0.5 L Lawrence # (Auto) 0.5 Eos # (Auto) 0.1 Baso # (Auto) 0.0 Abs Immat Gran (auto) 0.04 H Absolute Neuts (auto) 4.0 Absolute Nucleated RBC 0.000 Nucleated RBC % (auto) 0.0 PT 11.0 L INR 0.9 VBG pH 7.36 7.36 VBG pCO2 67 64 VBG pO2 110 135 VBG HCO3 38 H 37 H VBG O2 Saturation 99.0 99.0 VBG Base Excess 10.1 9.1 Anion Gap 12 Estim Creat Clear Calc TNP Estimated GFR > 60 Random Glucose 119 H Lactic Acid 0.7 Calcium 9.4 Total Bilirubin 0.5 AST 17 ALT 21 Alkaline Phosphatase 72 Troponin I High Sens 7.8 B-Natriuretic Peptide 33 Total Protein 7.0 Albumin 3.7 COVID-19 ([facility]OMERO) COVID-19 Clin Com Influenza Type A (SEAN) Influenza Type B (SEAN) Influenza A & B Note 07/07/23 13:39 MCV MCH MCHC RDW Plt Count MPV Immature Gran % (Auto) Neut % (Auto) Lymph % (Auto) Lawrence % (Auto) Eos % (Auto) Baso % (Auto) Lymph # (Auto) Lawrence # (Auto) Eos # (Auto) Baso # (Auto) Abs Immat Gran (auto) Absolute Neuts (auto) Absolute Nucleated RBC Nucleated RBC % (auto) PT INR VBG pH VBG pCO2 VBG pO2 VBG HCO3 VBG O2 Saturation VBG Base Excess Anion Gap Estim Creat Clear Calc Estimated GFR Random Glucose Lactic Acid Calcium Total Bilirubin AST ALT Alkaline Phosphatase Troponin I High Sens B-Natriuretic Peptide Total Protein Albumin COVID-19 (HOMERO) Negative COVID-19 Clin Com See Note Influenza Type A (SEAN) Negative Influenza Type B (SEAN) Negative Influenza A & B Note See Note Imaging Radiologist's Impressions: Impressions Chest X-Ray 07/07/23 10:40 IMPRESSION: 1. Mild vascular congestion. 2. Mild diffuse interstitial opacification especially lung bases cannot rule out mild interstitial infiltrate versus edema. 3. No significant pleural effusion. Assessment and Plan (1) COPD exacerbation: Status: Acute (2) Acute hypoxic respiratory failure: Status: Acute Plan 63-year-old female with pertinent history of breast cancer, essential hypertension, pulmonary hypertension, mood disorder, chronic hypoxemic respiratory failure due to COPD on baseline 2 L supplemental oxygen admitted for further management of acute copd exaceberbation with acute on chronic hypercapnic hypoxemic respiratory failure #Acute COPD exacerbation with acute on chronic hypercapnic hypoxemic respiratory failure with severe sepsis -CXR shows increased interstitial markings and possible edema with possible infiltrates -VBG reassuring with pH 7.36, pCO2 64 consistent with baseline, bicarb 37 -no leukocytosis but patient tachycardic and significantly tachypneic requiring BiPAP. Lactic acid normal. No other end-organ damage. Has been weaned from BiPAP to baseline 3 L supplemental O2 on admission -Check RPP -IV ceftriaxone and azithromycin -continue maintenance inhalers. Continue theophylline, level pending -IV methylprednisolone 40 mg q.8h -DuoNebs q.4h while awake and p.r.n. -pulmonology consult given recurrent hospitalizations for COPD exacerbation -gentle diuresis with 20 mg IV Lasix (no overt decompensation of heart failure) -follow CBC, cultures #Urinary incontinence -UA/UC # hypertension -continue losartan # mood disorder -continue home meds # history of breast cancer -continue anastrozole DVT prophylaxis-Lovenox Full code Patient requires inpatient stay at least 2 midnights for management of acute on chronic hypoxemic hypercapnic respiratory failure with COPD exacerbation requiring IV steroids, nebulizers, and expert consultation given recurrent hospitalizations for COPD exacerbation Quality Stroke Does the patient have a stroke diagnosis?: No VTE Prior VTE?: No VTE Risk Level:: Medical - moderate - high VTE Device Contraindication: Treatment Not Indicated VTE Drug Contraindication: N/A - Med Ordered
[2023-07-07] MEDS: Albuterol/Iprat 2.5/0.5MG 3 ML AMPUL.NEB INHALE ×2 (16:13→20:11)
[2023-07-07] MEDS: Azithromycin 500 MG in 0.9 % Sodium Chloride 250 ML 125 MG IV (17:40)
[2023-07-07] MEDS: methylPREDNISolone Sod Succ 40 MG/ML VIAL IVPUSH (17:41)
[2023-07-07] MEDS: Enoxaparin Sodium 40 MG/0.4 ML SYRINGE SUBCUT (17:41)
[2023-07-07] MEDS: Furosemide 20 MG/2 ML VIAL IVPUSH (17:42)
--- NOTE | 2023-07-07 18:23 | PHA.MEDREC ---
Pharmacy Consult ? Medication Reconciliation Pharmacy has completed the medication reconciliation. used list from facility. Orders for potassium 20 mEq: 2 tablets every Saturday and start date 07/08.
--- NOTE | 2023-07-07 19:26 | PC.NURSE ---
Patient is alert and oriented x3, VSS O2 Sat 94-95% on supplemental O2 at 3 LPM NC. She c/o intermittent non-productive cough and mild headache. Patient had her dinner, tolerated well no c/o nausea/vomiting. + BS x4, last BM 06/06/2023 at home. Patient denies urinary symptoms, pure wick in place. Skin is intact. Patient ambulates with with a walker at baseline. Patient is able to make her needs known, call [facility] within patient's reach. Plan of care ongoing.
[2023-07-07] MEDS: cefTRIAXone sodium 1 GM in 0.9 % Sodium Chloride 50 ML IV (19:32)
[2023-07-08] VITALS (12 sets, daily range): BP systolic 128–150; BP diastolic 66–96; PULSE 90–111; RESP 17–27; TEMP 36.4–37.2; O2SAT 91–98
--- NOTE | 2023-07-08 00:06 | PC.NURSE ---
Patient's daughter and HCP Britney called to inquire to receive calls from ED for updates. Per Britney OK to transfer patient to ICU if patient declines.
[2023-07-08] MEDS: methylPREDNISolone Sod Succ 40 MG/ML VIAL IVPUSH ×3 (00:50→16:52)
[2023-07-08] MEDS: 0.9 % Sodium Chloride Flush 3 ML SYRINGE IVFLUSH ×2 (00:51→08:21)
[2023-07-08 05:47] LABS: MANUAL DIFF FLAG NO
[2023-07-08 05:50] LABS: Basophils Percent Auto 0.3 % (0-2); Hematocrit 39.5 % (37.0-47.0); Hemoglobin 12.6 g/dl (12.0-16.0); Imm Gran Abs Auto 0.06 X10*3/uL (0.00-0.03); Imm Gran Pct Auto 1.6 % (0.0-0.4); Lymphocytes Absolute Auto 0.2 X10*3/uL (1.2-4.9); Mean Corpuscular HGB Conc 31.9 g/dl (31.0-35.0); Mean Corpuscular Hemoglobin 29.8 pg (27.0-33.0); Mean Corpuscular Volume 93.4 fL (80.0-98.0); Mean Platelet Volume 10.4 fL (9.4-12.3); Monocytes Absolute Auto 0.2 X10*3/uL (0.1-1.2); Monocytes Percent Auto 5.7 % (2-11); Neutrophils Absolute Auto 3.3 x10*3/uL (2.0-8.3); Neutrophils Percent Auto 86.4 % (45-73); Platelet Count 164 X10*3/uL (160-400); Red Blood Count 4.23 X10*6/uL (4.20-5.50); Red Cell Distribution Width 13.2 % (11.0-16.0); White Blood Count 3.9 X10*3/uL (4.8-10.8)
[2023-07-08 06:04] LABS: Anion Gap 14 (12-20); Blood Urea Nitrogen 13 mg/dL (9-16); Calcium 8.8 mg/dL (8.4-10.2); Carbon Dioxide 34 mmol/L (22-29); Chloride 96 mmol/L (96-108); Creatinine Clr Calc Pharmacy 96.4; Estimated Glomerular Filt Rate > 60; Glucose Random 152 mg/dL (60-115); Sodium 140 mmol/L (135-145)
--- NOTE | 2023-07-08 07:24 | HO.PM.IMPN ---
Subjective Subjective Date of Service: 07/08/23 Interval History: seen in f/u for acute on chronic hypoxic respiratory failure due to exacerbation of copd interval history: he feels better than yesterday, Physical Exam Vital Signs: Vital Signs: Last Vital Signs Temp 97.9 F 07/07/23 19:05 Pulse 100 07/08/23 05:16 Resp 27 H 07/08/23 05:16 BP 148/96 H 07/08/23 05:16 Pulse Ox 98 07/08/23 05:16 O2 Del Method Room Air 07/08/23 05:16 O2 Flow Rate 3 07/07/23 19:05 FiO2 30 07/07/23 11:53 BMI result Body Mass Index 38.1 Constitutional - Awake and Alert, No apparent distress Eyes - PERRLA, EOMI Cardiovascular - S1S2, RRR, minimal rle edema. No jvd Respiratory - Normal lung expansion, Normal respiratory effort, mild wheeze Gastrointestinal - NT / ND; +BS; No rebound or guarding - No CVA tenderness Extremities - no calf tenderness bilaterally, no swelling Skin - Warm/Dry Neurological - Alert & oriented x3 Psychological - Appropriate affect Objective Data Active Medications Acetaminophen (Acetaminophen 325 Mg Tablet) 650 mg PO Q6H PRN PRN Reason: Pain, Mild (Pain Scale 1-3) Albuterol/Ipratropium (Albuterol/Iprat 2.5/0.5mg 3 Ml Ampul.Neb) 3 ml INHALE RQ4H WHILE AWAKE [facility] Last Admin: 07/07/23 20:11 Dose: 3 ml Documented By: MAYANK Albuterol/Ipratropium (Albuterol/Iprat 2.5/0.5mg 3 Ml Ampul.Neb) 3 ml INHALE RQ4H WHILE AWAKE PRN PRN Reason: sob.wheezing Enoxaparin Sodium (Enoxaparin Sodium 40 Mg/0.4 Ml Syringe) 40 mg SUBCUT Q24H [facility] Last Admin: 07/07/23 17:41 Dose: 40 mg Documented By: JUANY Furosemide (Furosemide 20 Mg/2 Ml Vial) 20 mg IVPUSH DAILY [facility]; Protocol Last Admin: 07/07/23 17:42 Dose: 20 mg Documented By: JUANY Azithromycin 500 mg/ Sodium (Chloride) 250 mls @ 125 mls/hr IV Q24H [facility] Last Infusion: 07/07/23 19:41 Dose: Infused Documented By: YASMEEN Ceftriaxone Sodium 1 gm/ (Sodium Chloride) 50 mls @ 100 mls/hr IV Q24H [facility] Last Infusion: 07/07/23 20:05 Dose: Infused Documented By: YASMEEN Magnesium Hydroxide (Milk Of Magnesia 30 Ml Oral.Susp) 30 ml PO DAILY PRN PRN Reason: Constipation Methylprednisolone Sodium Succinate (Methylprednisolone Sod Succ 40 Mg/Ml Vial) 40 mg IVPUSH Q8H [facility] Last Admin: 07/08/23 00:50 Dose: 40 mg Documented By: YASMEEN Ondansetron HCl (Ondansetron Hcl 4 Mg/2 Ml Vial) 4 mg IVPUSH Q8H PRN PRN Reason: Nausea and Vomiting Sodium Chloride (0.9 % Sodium Chloride Flush 3 Ml Syringe) 3 ml IVFLUSH QSHIFT [facility] Last Admin: 07/08/23 00:51 Dose: 3 ml Documented By: YASMEEN Labs 07/08/23 05:13 07/08/23 05:14 Labs: Laboratory Results - last 24 hr 07/07/23 07/07/23 07/07/23 10:19 10:20 12:03 MCV 95.6 MCH 30.3 MCHC 31.7 RDW 13.6 Plt Count 156 L D MPV 9.9 Immature Gran % (Auto) 0.8 H Neut % (Auto) 79.0 H Lymph % (Auto) 8.9 L [place] % (Auto) 9.7 Eos % (Auto) 1.0 Baso % (Auto) 0.6 Lymph # (Auto) 0.5 L [place] # (Auto) 0.5 Eos # (Auto) 0.1 Baso # (Auto) 0.0 Abs Immat Gran (auto) 0.04 H Absolute Neuts (auto) 4.0 Absolute Nucleated RBC 0.000 Nucleated RBC % (auto) 0.0 PT 11.0 L INR 0.9 VBG pH 7.36 7.36 VBG pCO2 67 64 VBG pO2 110 135 VBG HCO3 38 H 37 H VBG O2 Saturation 99.0 99.0 VBG Base Excess 10.1 9.1 Anion Gap 12 Estim Creat Clear Calc TNP Estimated GFR > 60 Random Glucose 119 H Lactic Acid 0.7 Calcium 9.4 Total Bilirubin 0.5 AST 17 ALT 21 Alkaline Phosphatase 72 Troponin I High Sens 7.8 B-Natriuretic Peptide 33 Total Protein 7.0 Albumin 3.7 COVID-19 ([facility]) COVID-19 Clin Com Influenza Type A (SEAN) Influenza Type B (SEAN) Influenza A & B Note 07/07/23 07/08/23 07/08/23 13:39 05:13 05:14 MCV 93.4 MCH 29.8 MCHC 31.9 RDW 13.2 Plt Count 164 MPV 10.4 Immature Gran % (Auto) 1.6 H Neut % (Auto) 86.4 H Lymph % (Auto) 6.0 L [place] % (Auto) 5.7 Eos % (Auto) 0.0 Baso % (Auto) 0.3 Lymph # (Auto) 0.2 L [place] # (Auto) 0.2 Eos # (Auto) 0.0 Baso # (Auto) 0.0 Abs Immat Gran (auto) 0.06 H Absolute Neuts (auto) 3.3 Absolute Nucleated RBC 0.000 Nucleated RBC % (auto) 0.0 PT INR VBG pH VBG pCO2 VBG pO2 VBG HCO3 VBG O2 Saturation VBG Base Excess Anion Gap 14 Estim Creat Clear Calc 96.4 Estimated GFR > 60 Random Glucose 152 H Lactic Acid Calcium 8.8 D Total Bilirubin AST ALT Alkaline Phosphatase Troponin I High Sens B-Natriuretic Peptide Total Protein Albumin COVID-19 ([facility]) Negative COVID-19 Clin Com See Note Influenza Type A (SEAN) Negative Influenza Type B (SEAN) Negative Influenza A & B Note See Note Assessment and Plan (1) COPD exacerbation: Status: Acute (2) Acute hypoxic respiratory failure: Status: Acute (3) History of pulmonary hypertension: Status: Acute (4) Chronic hypoxic respiratory failure: Status: Acute (5) Hypoventilation associated with obesity: Status: Acute Plan 63-year-old female with pertinent history of breast cancer, essential hypertension, pulmonary hypertension, mood disorder, chronic hypoxemic respiratory failure due to COPD on baseline 2 L supplemental oxygen admitted for further management of acute copd exaceberbation with acute on chronic hypercapnic hypoxemic respiratory failure #Acute COPD exacerbation with acute on chronic hypercapnic hypoxemic respiratory failure probably d/t underlying PNA, required rescue bipap -IV methylprednisolone 40 mg q.8h -DuoNebs q.4h while awake and p.r.n. -pulmonology consult given recurrent hospitalizations for COPD exacerbation -gentle diuresis with 20 mg IV Lasix (no overt decompensation of heart failure) -continue Theophyline and check level Acute Bronchitis vs possible PNA and met severre sepsis criteri -follow CBC, cultures -continue Azithro and Ceftriaxone #Urinary incontinence -UA/UC # hypertension -continue losartan # mood disorder -continue home meds # history of breast cancer -continue anastrozole DVT prophylaxis-Lovenox Full code Need for inpatient: management of acute on chronic hypoxemic hypercapnic respiratory failure with COPD exacerbation requiring IV steroids, nebulizers, and expert consultation given recurrent hospitalizations for COPD exacerbation Quality Stroke Does the patient have a stroke diagnosis?: No VTE Prior VTE?: No VTE Risk Level:: Medical - moderate - high VTE Device Contraindication: Treatment Not Indicated VTE Drug Contraindication: N/A - Med Ordered
[2023-07-08] MEDS: Albuterol/Iprat 2.5/0.5MG 3 ML AMPUL.NEB INHALE ×4 (07:33→19:39)
[2023-07-08] MEDS: Furosemide 20 MG/2 ML VIAL IVPUSH (08:30)
[2023-07-08] MEDS: Nystatin Powder 15 GM BOTTLE 1 APPL TOPICAL ×2 (08:33→21:49)
[2023-07-08] MEDS: Montelukast Sodium 10 MG TABLET PO (08:34)
[2023-07-08] MEDS: Sertraline HCL 50 MG TABLET 150 MG PO (08:34)
[2023-07-08] MEDS: Losartan Potassium 50 MG TABLET PO (08:34)
[2023-07-08] MEDS: Omeprazole 20 MG CAPSULE.DR PO ×2 (08:34→16:50)
[2023-07-08] MEDS: Calcium + Vitamin D 250 MG TABLET PO ×2 (08:35→21:46)
[2023-07-08] MEDS: Theophylline Anhydrous ER 400 MG TAB.ER.24H PO (08:36)
[2023-07-08] MEDS: Potassium Chloride ER 20 MEQ TAB.ER.PRT 40 MEQ PO ×4 (08:38→21:47)
[2023-07-08] MEDS: guaiFENesin LA 600 MG TAB.ER.12H PO ×2 (08:38→21:46)
[2023-07-08] MEDS: Fluticasone/Umeclidinium/Vilanterol 200/62.5/25 BLST.W.DEV 1 PUFF INHALE (08:39)
[2023-07-08 08:43] LABS: Appearance Urine Clear; Color Urine Yellow; Glucose Urine UA Negative (Negative); Leukocyte Esterase Urine Negative (Negative); Nitrite Urine Negative (Negative); Urine Blood Negative (Negative); Urine Ketones Negative (Negative); Urine Protein Negative (Neg-Trace)
--- NOTE | 2023-07-08 09:15 | PC.NURSE ---
pt alert and oriented. on 4L o2 (reduced by RT from 6) with Spo2 in mid 90s. Resp effort and rate normal, lung sounds diminished with crackles. lasix, solumedrol given, BP WNL, other home medications given per APR. purewick in place. pt has no complaints - waiting for a room.
[2023-07-08 09:26] LABS: Adenovirus PCR Not Detected (Not Detect.); Bordetella parapertussis PCR Not Detected (Not Detect.); Bordetella pertussis PCR Not Detected (Not Detect.); Chlamydia pneumoniae PCR Not Detected (Not Detect.); Coronavirus 229E PCR Not Detected (Not Detect.); Coronavirus HKU1 PCR Not Detected (Not Detect.); Coronavirus NL63 PCR Not Detected (Not Detect.); Coronavirus OC43 PCR Not Detected (Not Detect.); Human metapneumovirus PCR Not Detected (Not Detect.); Influenza A PCR Not Detected (Not Detect.); Influenza B PCR Not Detected (Not Detect.); Mycoplasma pneumoniae PCR Not Detected (Not Detect.); Parainfluenza 1 PCR Not Detected (Not Detect.); Parainfluenza 2 PCR Not Detected (Not Detect.); Parainfluenza 3 PCR Detected (Not Detect.); Parainfluenza 4 PCR Not Detected (Not Detect.); RSV PCR Not Detected (Not Detect.); Rhino/Enterovirus PCR Not Detected (Not Detect.)
[2023-07-08 10:07] LABS: SARS-CoV-2 PCR Not Detected (Not Detect.)
--- NOTE | 2023-07-08 12:52 | P.CONPL_ITS ---
History of Present Illness History of Present Illness Consult date: 07/08/23 Chief complaint: Copd exacerbation Narrative: 63-year-old lady with underlying history of breast cancer, hypertension, COPD on 2 L of supplemental oxygen, previously followed at [facility], now in process of switching to [facility] pulmonology, with recent admission to [facility] for COPD exacerbation admitted on 07/07/2023 with another COPD exacerbation secondary to parainfluenza. Review of Systems 2 Constitutional: Constitutional: Denies daytime sleepiness, Denies excessive sweating, Denies fatigue, Denies fever(s), Denies lethargy, Denies malaise, Denies night sweats, Denies snoring and Denies weight loss Eyes: Eyes: Denies blurry vision and Denies itchy eyes ENT: Denies nasal congestion, Denies post nasal drip, Denies sinus pain, Denies sinus pressure and Denies other ( Thrush) Cardiovascular: Cardiovascular: Denies chest pain, Denies pedal edema, Reports dyspnea, Denies orthopnea and Denies paroxysmal nocturnal dyspnea Respiratory: Respiratory: Reports cough, Denies hemoptysis, Reports excessive phlegm production, Reports dyspnea, Denies snoring and Denies wheezing Gastrointestinal: Gastrointestinal: Denies abdominal pain and Denies heartburn Musculoskeletal: Musculoskeletal: Denies myalgias, Denies arthralgias and Denies joint swelling Integumentary/Breasts: Skin/Breast: Denies rash Neurologic: Denies memory loss and Denies seizure-like activity Psychiatric: Psychiatric: Denies abnormal sleep pattern, Denies anxiety and Denies memory loss Endocrine: Endocrine: Denies excessive sweating, Denies fatigue and Denies heat intolerance Hematologic/Lymphatic: Hematologic/Lymphatic: Denies easy bruising Allergic/Immunologic: Allergic/Immunologic: Denies itchy eyes, Denies seasonal rhinorrhea and Denies wheezing PMFSH Past Medical History Medical History MDD (major depressive disorder), recurrent episode, moderate PTSD (post-traumatic stress disorder) Respiratory failure Respiratory failure with hypoxia COPD (chronic obstructive pulmonary disease) Hypertension Breast CA Surgical History Surgical History H/O lumpectomy Social History Social History Household Members: Family Housing: House Do you presently have visiting nurse or other home services: Yes (daughter is LEAF CONDITIONER) Unable to assess alcohol history related to: Unable to respond Alcohol intake: former Patient Tobacco Use Status: Former Tobacco user Smoked in Last 30 Days: No Use of substances other than those prescribed or required for medical reasons: No Advance Directives: Yes Advance Directives on File: Yes Advance Directives Date on File: 04/05/22 Do you have a plan to hurt others: No Plan Nutrition Risks: No Nutritional Risk Patient : No service: No Current occupational status: disabled Meds Allergies Allergy/AdvReac Type Severity Reaction Status Date / Time Sulfa (Sulfonamide Allergy Mild RASH Verified 07/07/23 10:41 Antibiotics) codeine [Codeine] AdvReac Mild NEAR Verified 07/07/23 10:41 SYNCOPE epoprostenol [From Flolan] AdvReac Mild NAUSEA & Verified 07/07/23 10:41 VOMITING Active Medications: Current Medications Acetaminophen (Acetaminophen 325 Mg Tablet) 650 mg PO Q6H PRN PRN Reason: Pain, Mild (Pain Scale 1-3) Albuterol/Ipratropium (Albuterol/Iprat 2.5/0.5mg 3 Ml Ampul.Neb) 3 ml INHALE RQ4H WHILE AWAKE [facility] Last Admin: 07/08/23 11:32 Dose: 3 ml Albuterol/Ipratropium (Albuterol/Iprat 2.5/0.5mg 3 Ml Ampul.Neb) 3 ml INHALE RQ4H WHILE AWAKE PRN PRN Reason: sob.wheezing Bisacodyl (Bisacodyl 10 Mg Supp.Rect) 10 mg OR DAILY PRN PRN Reason: Constipation Calcium Carbonate/Cholecalciferol (Calcium + Vitamin D 250 Mg Tablet) 250 mg PO BID [facility] Last Admin: 07/08/23 08:35 Dose: 250 mg Enoxaparin Sodium (Enoxaparin Sodium 40 Mg/0.4 Ml Syringe) 40 mg SUBCUT Q24H [facility] Last Admin: 07/07/23 17:41 Dose: 40 mg Fluticasone/Umeclidinium/Vilanterol (Fluticasone/Umeclidinium/Vilanterol 200/62.5/25 Blst.W.Dev) 1 puff INHALE RDAILY [facility] Last Admin: 07/08/23 08:39 Dose: 1 puff Furosemide (Furosemide 20 Mg/2 Ml Vial) 20 mg IVPUSH DAILY [facility]; Protocol Last Admin: 07/08/23 08:30 Dose: 20 mg Guaifenesin (Guaifenesin La 600 Mg Tab.Er.12h) 600 mg PO Q12H [facility] Last Admin: 07/08/23 08:38 Dose: 600 mg Azithromycin 500 mg/ Sodium (Chloride) 250 mls @ 125 mls/hr IV Q24H [facility] Last Infusion: 07/07/23 19:41 Dose: Infused Ceftriaxone Sodium 1 gm/ (Sodium Chloride) 50 mls @ 100 mls/hr IV Q24H [facility] Last Infusion: 07/07/23 20:05 Dose: Infused Losartan Potassium (Losartan Potassium 50 Mg Tablet) 50 mg PO DAILY [facility]; Protocol Last Admin: 07/08/23 08:34 Dose: 50 mg Magnesium Hydroxide (Milk Of Magnesia 30 Ml Oral.Susp) 30 ml PO DAILY PRN PRN Reason: Constipation Methylprednisolone Sodium Succinate (Methylprednisolone Sod Succ 40 Mg/Ml Vial) 40 mg IVPUSH Q8H [facility] Last Admin: 07/08/23 08:26 Dose: 40 mg Montelukast Sodium (Montelukast Sodium 10 Mg Tablet) 10 mg PO DAILY [facility] Last Admin: 07/08/23 08:34 Dose: 10 mg Nystatin (Nystatin Powder 15 Gm Bottle) 1 appl TOPICAL BID [facility]; Protocol Last Admin: 07/08/23 08:33 Dose: 1 appl Omeprazole (Omeprazole 20 Mg Capsule.Dr) 20 mg PO BID@0630,1630 [facility] Last Admin: 07/08/23 08:34 Dose: 20 mg Ondansetron HCl (Ondansetron Hcl 4 Mg/2 Ml Vial) 4 mg IVPUSH Q8H PRN PRN Reason: Nausea and Vomiting Potassium Chloride (Potassium Chloride Er 20 Meq Tab.Er.Prt) 40 meq PO QID [facility] Last Admin: 07/08/23 08:38 Dose: 40 meq Potassium Chloride (Potassium Chloride Er 20 Meq Tab.Er.Prt) 40 meq PO TUTH@0900 [facility] Prazosin HCl (Prazosin Hcl 1 Mg Capsule) 2 mg PO BEDTIME [facility]; Protocol Sertraline HCl (Sertraline Hcl 50 Mg Tablet) 150 mg PO DAILY [facility] Last Admin: 07/08/23 08:34 Dose: 150 mg Sodium Biphosphate/Sodium Phosphate (Sodium Phosphate,Cherry-Dibasic 133 Ml Enema) 118 ml OR DAILY PRN PRN Reason: Constipation Sodium Chloride (0.9 % Sodium Chloride Flush 3 Ml Syringe) 3 ml IVFLUSH QSHIFT [facility] Last Admin: 07/08/23 08:21 Dose: 3 ml Theophylline (Theophylline Anhydrous Er 400 Mg Tab.Er.24h) 400 mg PO DAILY [facility] Last Admin: 07/08/23 08:36 Dose: 400 mg Home Medications ?Medication ?Instructions ?Recorded ?Confirmed ?Last Taken ?Type albuterol sulfate 90 mcg/actuation 2 puff inhalation Q6H PRN wheezing 02/05/20 07/07/23 06/07/23 History aerosol inhaler montelukast 10 mg tablet 1 tab PO DAILY 02/05/20 07/07/23 06/07/23 History omeprazole 20 mg capsule,delayed 1 cap PO BID 02/05/20 07/07/23 06/07/23 History release sertraline 100 mg tablet 1.5 tab PO DAILY 02/05/20 07/07/23 06/07/23 History fluticasone fur. 200 mcg-umeclid 1 ea inhalation DAILY 06/11/23 07/07/23 06/07/23 History 62.5 mcg-vilant 25 mcg inhalat.powder (Trelegy Ellipta) losartan 50 mg tablet 50 mg PO DAILY 06/11/23 07/07/23 06/07/23 History acetaminophen 325 mg tablet 650 mg PO Q4H PRN pain or fever 07/07/23 07/07/23 Unknown History acetaminophen 650 mg rectal 650 mg OR Q4H PRN pain or fever 07/07/23 07/07/23 Unknown History suppository albuterol sulfate 1.25 mg/3 mL 1.25 mg inhalation Q4H PRN Wheezing 07/07/23 07/07/23 Unknown History solution for nebulization bisacodyl 10 mg rectal suppository 10 mg OR DAILY PRN Constipation 07/07/23 07/07/23 Unknown History calcium carbonate 600 mg-vitamin 1 tab PO BID 07/07/23 07/07/23 Unknown History D3 5 mcg (200 unit) tablet guaifenesin 600 mg tablet, 600 mg PO Q12H 07/07/23 07/07/23 Unknown History extended release 12 hr ipratropium 0.5 mg-albuterol 3 mg 3 ml inhalation Q4H 07/07/23 07/07/23 Unknown History (2.5 mg base)/3 mL nebulization soln magnesium hydroxide 400 mg/5 mL 30 ml PO DAILY PRN Constipation 07/07/23 07/07/23 Unknown History oral suspension (Milk of Magnesia) nystatin 100,000 unit/gram topical 1 appl topical BID 07/07/23 07/07/23 Unknown History powder potassium chloride 20 mEq 40 meq PO QID 07/07/23 07/07/23 Unknown History tablet,extended release potassium chloride 20 mEq 40 meq PO TUTH@0900 07/07/23 07/07/23 Unknown History tablet,extended release prazosin 2 mg capsule 2 mg PO BEDTIME 07/07/23 07/07/23 Unknown History prednisone 10 mg tablet See Taper PO DIRECTED 07/07/23 07/07/23 Unknown History sodium phosphates 19 gram-7 118 ml OR DAILY PRN Constipation 07/07/23 07/07/23 Unknown History gram/118 mL enema (Fleet Enema) theophylline 400 mg 400 mg PO QAM 07/07/23 07/07/23 Unknown History tablet,extended release 24 hr Physical Exam 2 Vital Signs: Vital Signs: Last Vital Signs Temp 98.0 F 07/08/23 11:56 Pulse 107 H 07/08/23 11:56 Resp 18 07/08/23 11:56 BP 133/67 07/08/23 11:56 Pulse Ox 91 L 07/08/23 11:56 O2 Del Method Nasal Cannula 07/08/23 11:56 O2 Flow Rate 3 07/08/23 11:56 FiO2 30 07/07/23 11:53 BMI result Body Mass Index 38.1 Const: General: no acute distress and alert Nutritional Appearance: not obese Orientation/consciousness: Other orientation findings ( oriented) HEENT: Head: Yes atraumatic Eyes: General: appearance normal, both eyes and all related structures S clerae: sclerae normal EOM: EOMs intact bilaterally Neck: Neck: Yes supple Lymphatic: no lymphadenopathy noted Resp: Effort & Inspection: normal respiratory effort and no use of accessory muscles Auscultation: wheezes (Expiratory bilateral) Cardio: Rate: tachycardic Rhythm: regular rhythm Heart sounds: no gallops, no murmurs and no rubs Skin: General skin exam: other ( warm) Extrem: General: No clubbing, No cyanosis and No edema Results Laboratory Findings 07/08/23 05:13 07/08/23 05:14 ABG, PT/INR, D-dimer: PT/INR, D-dimer PT 11.0 SEC (11.1-13.3) L 07/07/23 10:19 INR 0.9 (0.9-1.1) 07/07/23 10:19 Abnormal lab findings: Abnormal Labs 07/07/23 07/07/23 07/07/23 10:19 10:20 12:03 WBC Plt Count 156 L D Immature Gran % (Auto) 0.8 H Neut % (Auto) 79.0 H Lymph % (Auto) 8.9 L Lymph # (Auto) 0.5 L Abs Immat Gran (auto) 0.04 H PT 11.0 L VBG HCO3 38 H 37 H Carbon Dioxide 34 H Random Glucose 119 H Parainfluenza 3 (PCR) 07/08/23 07/08/23 07/08/23 05:13 05:14 07:20 WBC 3.9 L Plt Count Immature Gran % (Auto) 1.6 H Neut % (Auto) 86.4 H Lymph % (Auto) 6.0 L Lymph # (Auto) 0.2 L Abs Immat Gran (auto) 0.06 H PT VBG HCO3 Carbon Dioxide 34 H Random Glucose 152 H Parainfluenza 3 (PCR) Detected A Microbiology: Microbiology 07/07/23 10:23 Blood - Venous Blood Culture - Preliminary No growth after 24 hours. 07/07/23 10:19 Blood - Venous Blood Culture - Preliminary No growth after 24 hours. Assessment and Plan (1) COPD exacerbation: Status: Acute (2) Acute and chronic respiratory failure with hypoxia: Status: Acute Plan Impression: 63-year-old lady with underlying supplemental oxygen dependent COPD admitted with COPD exacerbation secondary to parainfluenza. Recommendations: Agree with current regimen of empiric antibiotics, systemic glucocorticoids, nebulized bronchodilators, and theophylline. Procedures Date of Service Date of Service: 07/08/23
[2023-07-08] MEDS: Enoxaparin Sodium 40 MG/0.4 ML SYRINGE SUBCUT (16:48)
[2023-07-08] MEDS: Azithromycin 500 MG in 0.9 % Sodium Chloride 250 ML 125 MG IV (16:51)
[2023-07-08] MEDS: cefTRIAXone sodium 1 GM in 0.9 % Sodium Chloride 50 ML IV (18:55)
--- NOTE | 2023-07-08 20:03 | MHC.EDTECH ---
This tech took over acre of patient at 1900,hourly rounds and vitals completed,HR is elevated at 111 RN made aware. Patient has a pure-wick that was placed by previous shift,200MLS of yellow urine emptied from suction canister,patient is clean and dry and repositioned to comfort,call carballo in reach
[2023-07-08] MEDS: Prazosin HCL 1 MG CAPSULE 2 MG PO (21:47)
--- NOTE | 2023-07-08 21:50 | MHC.EDTECH ---
Hourly rounds and vitals completed,patient is resting at this time,call carballo in reach
[2023-07-09] VITALS (10 sets, daily range): BP systolic 120–157; BP diastolic 63–88; PULSE 88–115; RESP 18–24; TEMP 36.2–37.4; O2SAT 91–100; BMI 36.9
[2023-07-09] MEDS: methylPREDNISolone Sod Succ 40 MG/ML VIAL IVPUSH ×4 (00:22→23:39)
[2023-07-09] MEDS: 0.9 % Sodium Chloride Flush 3 ML SYRINGE IVFLUSH ×4 (00:22→23:39)
--- NOTE | 2023-07-09 00:41 | MHC.EDTECH ---
Hourly rounds and vitals completed,HR is elevated at 114 RN aware, patient is clean and dry,repositioned to comfort,call carballo in reach
--- NOTE | 2023-07-09 02:19 | MHC.EDTECH ---
Hourly rounds completed,patient is comfortably,call carballo in reach
--- NOTE | 2023-07-09 03:27 | PC.NURSE ---
Patient resting in a stretcher bed, VSS. O2 Sat 95-97% on 4 LPM NC. Patient c/o mild headache 04/20, Tylenol offered to patient, patient refused. Patient requested and given siva madeleine, tolerated well. Purewick in place. Call carballo in patent's reach, plan of care ongoing.
--- NOTE | 2023-07-09 04:16 | MHC.EDTECH ---
Hourly rounds and vitals completed,patient repositioned to comfort,patient is clean and dry.
--- NOTE | 2023-07-09 04:40 | MHC.EDTECH ---
Patient placed in hospital bed for comfort,this tech placed a new pure-wick ,patient tolerated well
--- NOTE | 2023-07-09 05:48 | MHC.EDTECH ---
Hourly rounds completed,emptied 400MLS of yellow urine from canister.
[2023-07-09] MEDS: Albuterol/Iprat 2.5/0.5MG 3 ML AMPUL.NEB INHALE ×4 (07:44→20:35)
[2023-07-09] MEDS: Furosemide 20 MG/2 ML VIAL IVPUSH (08:01)
[2023-07-09] MEDS: Calcium + Vitamin D 250 MG TABLET PO ×2 (08:02→21:01)
[2023-07-09] MEDS: Losartan Potassium 50 MG TABLET PO (08:02)
[2023-07-09] MEDS: Omeprazole 20 MG CAPSULE.DR PO ×2 (08:02→15:44)
[2023-07-09] MEDS: Montelukast Sodium 10 MG TABLET PO (08:02)
[2023-07-09] MEDS: guaiFENesin LA 600 MG TAB.ER.12H PO ×2 (08:02→21:01)
[2023-07-09] MEDS: Sertraline HCL 50 MG TABLET 150 MG PO (08:02)
[2023-07-09] MEDS: Nystatin Powder 15 GM BOTTLE 1 APPL TOPICAL ×2 (08:03→21:25)
[2023-07-09] MEDS: Potassium Chloride ER 20 MEQ TAB.ER.PRT 40 MEQ PO (08:03)
--- NOTE | 2023-07-09 08:39 | PC.NURSE ---
awake and alert. supplemental O2, resp even and unlabored. speaking in full clear sentences. abd soft. skin wcd. resting comfortably in hospital bed. took meds whole with water. reports she does not have much of an appetite for breakfast at this time, given applesauce and tolerating well.
--- NOTE | 2023-07-09 09:09 | MHC.CM.PN ---
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
[2023-07-09] MEDS: Theophylline Anhydrous ER 400 MG TAB.ER.24H PO (10:35)
--- NOTE | 2023-07-09 10:46 | PC.NURSE ---
bedside report taken from main ED RN. pt placed on precautions for flu +. md assessed pt at bedside. purewick in place. pt stated she is on 3L home O2. 1a OOB w/ walker.
--- NOTE | 2023-07-09 12:53 | P.PNPL_ITS ---
Subjective Subjective Date of Service: 07/09/23 Interval history: Respiratory status improved essentially to baseline. Objective Data Labs 07/08/23 05:13 07/08/23 05:14 Microbiology Microbiology Results: Microbiology 07/07/23 10:23 Blood - Venous Blood Culture - Preliminary No growth after 48 hours. 07/07/23 10:19 Blood - Venous Blood Culture - Preliminary No growth after 48 hours. Physical Exam 2 Vital Signs: Vital Signs: Last Vital Signs Temp 98.3 F 07/09/23 09:45 Pulse 88 07/09/23 11:36 Resp 18 07/09/23 11:36 BP 127/82 07/09/23 09:45 Pulse Ox 95 07/09/23 09:45 O2 Del Method Nasal Cannula 07/09/23 09:45 O2 Flow Rate 3 07/09/23 09:45 FiO2 30 07/07/23 11:53 BMI result Body Mass Index 38.1 Const: General: no acute distress, alert and awake Nutritional Appearance: obese Eyes: Sclerae: sclerae normal EOM: EOMs intact bilaterally Neck: Neck: Yes no lymphadenopathy, Yes trachea midline and Yes supple Resp: Effort & Inspection: normal respiratory effort and no respiratory distress Auscultation: clear to auscultation bilaterally Cardio: Rate: regular rate Rhythm: regular rhythm Heart sounds: no gallops, no murmurs and no rubs GI: Palpation (GI): Soft to palpation and Other GI palpation findings present ( Nontender) Auscultation: normal bowel sounds Extrem: General: No clubbing, No cyanosis and Yes edema (Trace bilateral) Procedures Date of Service Date of Service: 07/09/23 Assessment and Plan Assessment and plan (1) Acute and chronic respiratory failure with hypoxia: Status: Acute (2) COPD exacerbation: Status: Acute Plan Impression: 63-year-old lady with underlying supplemental oxygen dependent COPD admitted with COPD exacerbation secondary to parainfluenza. Now improved essentially to baseline. Recommendations: Agree with continuation of the current regimen of empiric antibiotics, nebulized bronchodilators, and theophylline. Taper prednisone to 40 mg daily and then off. Time Spent With Patient Time: Total time managing care of this patient today ____ minutes. Progress Note: Quality Stroke Does the patient have a stroke diagnosis?: No
--- NOTE | 2023-07-09 15:04 | HO.PM.IMPN ---
Subjective Subjective Date of Service: 07/09/23 Interval History: acute on chronic hypoxic respiratory failure due to exacerbation of copd Review of Systems sob seems similar but somewhat improving denies any fever or chills Physical Exam Vital Signs: Vital Signs: Last Vital Signs Temp 98.3 F 07/09/23 09:45 Pulse 88 07/09/23 11:36 Resp 18 07/09/23 11:36 BP 127/82 07/09/23 09:45 Pulse Ox 95 07/09/23 09:45 O2 Del Method Nasal Cannula 07/09/23 09:45 O2 Flow Rate 3 07/09/23 09:45 FiO2 30 07/07/23 11:53 BMI result Body Mass Index 38.1 Appearance: Alert.? Oriented X3. cvs: rrr, [id number] . res: air entry diminshed ,has b/l wheezing abd: no rebound or guarding ,nt, bs present. ext pulses present , no cyanosis . neuro: axo3 , nonfocal. Objective Data Active Medications Acetaminophen (Acetaminophen 325 Mg Tablet) 650 mg PO Q6H PRN PRN Reason: Pain, Mild (Pain Scale 1-3) Albuterol/Ipratropium (Albuterol/Iprat 2.5/0.5mg 3 Ml Ampul.Neb) 3 ml INHALE RQ4H WHILE AWAKE [facility] Last Admin: 07/09/23 11:24 Dose: 3 ml Documented By: LAMBERTO Albuterol/Ipratropium (Albuterol/Iprat 2.5/0.5mg 3 Ml Ampul.Neb) 3 ml INHALE RQ4H WHILE AWAKE PRN PRN Reason: sob.wheezing Bisacodyl (Bisacodyl 10 Mg Supp.Rect) 10 mg LA DAILY PRN PRN Reason: Constipation Calcium Carbonate/Cholecalciferol (Calcium + Vitamin D 250 Mg Tablet) 250 mg PO BID [facility] Last Admin: 07/09/23 08:02 Dose: 250 mg Documented By: BERNARD Enoxaparin Sodium (Enoxaparin Sodium 40 Mg/0.4 Ml Syringe) 40 mg SUBCUT Q24H [facility] Last Admin: 07/08/23 16:48 Dose: 40 mg Documented By: JACINTA Fluticasone/Umeclidinium/Vilanterol (Fluticasone/Umeclidinium/Vilanterol 200/62.5/25 Blst.W.Dev) 1 puff INHALE RDAILY [facility] Last Admin: 07/08/23 08:39 Dose: 1 puff Documented By: JACINTA Furosemide (Furosemide 20 Mg/2 Ml Vial) 20 mg IVPUSH DAILY [facility]; Protocol Last Admin: 07/09/23 08:01 Dose: 20 mg Documented By: BERNARD Guaifenesin (Guaifenesin La 600 Mg Tab.Er.12h) 600 mg PO Q12H [facility] Last Admin: 07/09/23 08:02 Dose: 600 mg Documented By: BERNARD Azithromycin 500 mg/ Sodium (Chloride) 250 mls @ 125 mls/hr IV Q24H [facility] Last Infusion: 07/08/23 18:50 Dose: Infused Documented By: JACINTA Ceftriaxone Sodium 1 gm/ (Sodium Chloride) 50 mls @ 100 mls/hr IV Q24H [facility] Last Infusion: 07/08/23 19:30 Dose: Infused Documented By: YASMEEN Losartan Potassium (Losartan Potassium 50 Mg Tablet) 50 mg PO DAILY [facility]; Protocol Last Admin: 07/09/23 08:02 Dose: 50 mg Documented By: BERNARD Magnesium Hydroxide (Milk Of Magnesia 30 Ml Oral.Susp) 30 ml PO DAILY PRN PRN Reason: Constipation Methylprednisolone Sodium Succinate (Methylprednisolone Sod Succ 40 Mg/Ml Vial) 40 mg IVPUSH Q8H [facility] Last Admin: 07/09/23 08:01 Dose: 40 mg Documented By: BERNARD Montelukast Sodium (Montelukast Sodium 10 Mg Tablet) 10 mg PO DAILY [facility] Last Admin: 07/09/23 08:02 Dose: 10 mg Documented By: BERNARD Nystatin (Nystatin Powder 15 Gm Bottle) 1 appl TOPICAL BID [facility]; Protocol Last Admin: 07/09/23 08:03 Dose: 1 appl Documented By: BERNARD Omeprazole (Omeprazole 20 Mg Capsule.) 20 mg PO BID@0630,1630 [facility] Last Admin: 07/09/23 08:02 Dose: 20 mg Documented By: BERNARD Ondansetron HCl (Ondansetron Hcl 4 Mg/2 Ml Vial) 4 mg IVPUSH Q8H PRN PRN Reason: Nausea and Vomiting Potassium Chloride (Potassium Chloride Er 20 Meq Tab.Er.Prt) 40 meq PO TUTH@0900 [facility] Last Admin: 07/09/23 08:03 Dose: 40 meq Documented By: BERNARD Prazosin HCl (Prazosin Hcl 1 Mg Capsule) 2 mg PO BEDTIME [facility]; Protocol Last Admin: 07/08/23 21:47 Dose: 2 mg Documented By: YASMEEN Sertraline HCl (Sertraline Hcl 50 Mg Tablet) 150 mg PO DAILY [facility] Last Admin: 07/09/23 08:02 Dose: 150 mg Documented By: BERNARD Sodium Biphosphate/Sodium Phosphate (Sodium Phosphate,[facility] 133 Ml Enema) 118 ml LA DAILY PRN PRN Reason: Constipation Sodium Chloride (0.9 % Sodium Chloride Flush 3 Ml Syringe) 3 ml IVFLUSH QSHIFT [facility] Last Admin: 07/09/23 11:41 Dose: Not Given Documented By: LAMBERTO Non-Admin Reason: Previously Administered Theophylline (Theophylline Anhydrous Er 400 Mg Tab.Er.24h) 400 mg PO DAILY [facility] Last Admin: 07/09/23 10:35 Dose: 400 mg Documented By: LAMBERTO Labs 07/08/23 05:13 07/08/23 05:14 Microbiology Microbiology Results: Microbiology 07/07/23 10:23 Blood Culture - Preliminary Blood - Venous No growth after 48 hours. 07/07/23 10:19 Blood Culture - Preliminary Blood - Venous No growth after 48 hours. Assessment and Plan (1) COPD exacerbation: Status: Acute (2) Acute hypoxic respiratory failure: Status: Acute (3) History of pulmonary hypertension: Status: Acute (4) Chronic hypoxic respiratory failure: Status: Acute (5) Hypoventilation associated with obesity: Status: Acute Plan 63-year-old female with pertinent history of breast cancer, essential hypertension, pulmonary hypertension, mood disorder, chronic hypoxemic respiratory failure due to COPD on baseline 2 L supplemental oxygen admitted for further management of acute copd exaceberbation with acute on chronic hypercapnic hypoxemic respiratory failure Acute COPD exacerbation with acute on chronic hypercapnic hypoxemic respiratory failure probably d/t underlying PNA, required rescue bipap ,in addition uri -parainfluenza virus Theophyline check level blood culture neg@48hrs continue IV methylprednisolone 40 mg q.8h,DuoNebs q.4h while awake and p.r.n.,gentle iv diuresis ,oxygen taper pulmonology consult given recurrent hospitalizations for COPD exacerbation Acute Bronchitis vs possible PNA vs parainfluenza3 virus (uri) severe sepsis POA(possible due to above, met severe sepsis criteria on admission h&P ) resolved. continue Azithro and Ceftriaxone Urinary incontinence :ua neg hypertension:continue losartan mood disorder-continue home meds. history of breast cancer-continue anastrozole. Morbid obesity: encouraged to lose weight and cut down calories. DVT prophylaxis-Lovenox Full code Need for inpatient: management of acute on chronic hypoxemic hypercapnic respiratory failure with COPD exacerbation requiring IV steroids, nebulizers, and expert consultation given recurrent hospitalizations for COPD exacerbation Quality Stroke Does the patient have a stroke diagnosis?: No VTE Prior VTE?: No VTE Risk Level:: Medical - moderate - high VTE Device Contraindication: Treatment Not Indicated VTE Drug Contraindication: N/A - Med Ordered
[2023-07-09] MEDS: Enoxaparin Sodium 40 MG/0.4 ML SYRINGE SUBCUT (15:44)
[2023-07-09] MEDS: Azithromycin 500 MG in 0.9 % Sodium Chloride 250 ML 125 MG IV (16:09)
[2023-07-09] MEDS: cefTRIAXone sodium 1 GM in 0.9 % Sodium Chloride 50 ML IV (18:06)
[2023-07-09] MEDS: ondansetron HCL 4 MG/2 ML VIAL IVPUSH (18:25)
[2023-07-09] MEDS: Acetaminophen 325 MG TABLET 650 MG PO (21:00)
[2023-07-09] MEDS: Prazosin HCL 1 MG CAPSULE 2 MG PO (21:00)
[2023-07-10] VITALS (8 sets, daily range): BP systolic 114–142; BP diastolic 59–76; PULSE 99–119; RESP 18–21; TEMP 36.1–36.7; O2SAT 92–98
[2023-07-10] MEDS: Omeprazole 20 MG CAPSULE.DR PO ×2 (07:09→16:20)
[2023-07-10] MEDS: 0.9 % Sodium Chloride Flush 3 ML SYRINGE IVFLUSH (08:05)
[2023-07-10] MEDS: methylPREDNISolone Sod Succ 40 MG/ML VIAL IVPUSH (08:06)
[2023-07-10] MEDS: Furosemide 20 MG/2 ML VIAL IVPUSH (08:06)
[2023-07-10] MEDS: Sertraline HCL 50 MG TABLET 150 MG PO (08:07)
[2023-07-10] MEDS: Theophylline Anhydrous ER 400 MG TAB.ER.24H PO (08:07)
[2023-07-10] MEDS: guaiFENesin LA 600 MG TAB.ER.12H PO (08:07)
[2023-07-10] MEDS: Calcium + Vitamin D 250 MG TABLET PO (08:07)
[2023-07-10] MEDS: Losartan Potassium 50 MG TABLET PO (08:07)
[2023-07-10] MEDS: Montelukast Sodium 10 MG TABLET PO (08:07)
[2023-07-10] MEDS: Nystatin Powder 15 GM BOTTLE 1 APPL TOPICAL (08:08)
[2023-07-10] MEDS: Albuterol/Iprat 2.5/0.5MG 3 ML AMPUL.NEB INHALE ×3 (08:44→14:53)
[2023-07-10] MEDS: Fluticasone/Umeclidinium/Vilanterol 200/62.5/25 BLST.W.DEV 1 PUFF INHALE (08:44)
--- NOTE | 2023-07-10 12:26 | P.PNPL_ITS ---
Subjective Subjective Date of Service: 07/10/23 Interval history: Respiratory status at baseline. Objective Data Labs 07/08/23 05:13 07/08/23 05:14 Microbiology Microbiology Results: Microbiology 07/07/23 10:23 Blood - Venous Blood Culture - Preliminary No growth after 48 hours. 07/07/23 10:19 Blood - Venous Blood Culture - Preliminary No growth after 48 hours. Physical Exam 2 Vital Signs: Vital Signs: Last Vital Signs Temp 98.1 F 07/10/23 07:45 Pulse 100 07/10/23 11:44 Resp 18 07/10/23 11:44 BP 142/76 H 07/10/23 08:07 Pulse Ox 93 07/10/23 07:45 O2 Del Method Nasal Cannula 07/10/23 07:45 O2 Flow Rate 3 07/10/23 07:45 FiO2 30 07/07/23 11:53 BMI result Body Mass Index 36.9 Const: General: no acute distress, alert and awake Eyes: Sclerae: sclerae normal EOM: EOMs intact bilaterally Neck: Neck: Yes no lymphadenopathy, Yes trachea midline and Yes supple Resp: Effort & Inspection: normal respiratory effort and no respiratory distress Auscultation: clear to auscultation bilaterally Cardio: Rate: regular rate Rhythm: regular rhythm Heart sounds: no gallops, no murmurs and no rubs GI: Palpation (GI): Soft to palpation and Other GI palpation findings present ( Nontender) Auscultation: normal bowel sounds Extrem: General: Yes no pedal edema, No clubbing and No cyanosis Procedures Date of Service Date of Service: 07/10/23 Assessment and Plan Assessment and plan (1) Acute and chronic respiratory failure with hypoxia: Status: Acute (2) COPD exacerbation: Status: Acute Plan Impression: 63-year-old lady with underlying supplemental oxygen dependent COPD admitted with COPD exacerbation secondary to parainfluenza. Now improved essentially to baseline. Recommendations: Total of 5 days of azithromycin, continue on home bronchodilator regimen. Taper prednisone off. Time Spent With Patient Time: Total time managing care of this patient today ____ minutes. Progress Note: Quality Stroke Does the patient have a stroke diagnosis?: No
--- NOTE | 2023-07-10 13:03 | MHC.CM.PN ---
pt from [facility] where she will return when dcd
--- NOTE | 2023-07-10 13:42 | P.DS_ITS ---
DS: Providers Provider Date of Service: 07/10/23 Date of admission: 07/07/23 15:53 Date of discharge: 07/10/23 Primary care physician: Michael Vargas MD Consults: 07/07/23 15:56 Consult to Pulmonology Routine Consulting Provider: [facility] Reason for consultation: recurrent copd exacerbations requiring bipap Attending physician on discharge: Greer Pierce Discharging clinician: Greer Pierce DS: Diagnosis Discharge Diagnosis (1) Acute and chronic respiratory failure with hypoxia: Status: Acute (2) COPD exacerbation: Status: Acute DS: Summary Hospital Course Hospital Course: 63-year-old female with pertinent history of breast cancer, essential hypertension, mood disorder, chronic hypoxemic respiratory failure due to COPD on baseline 2 L supplemental oxygen presented to the ED from [facility] where she has been residing since recent admission for evaluation of worsening shortness of breath including dyspnea on exertion that worsened acutely this morning. The patient has had 2 recent admissions for acute decompensation of COPD with acute on chronic hypoxemic hypercapnic respiratory failure from 06/10-06/13 and again from 06/15-06/20 where she required intubation and subsequent bipap therapies and was also found to have human metapneumovirus. She was discharged to [facility] with prednisone, theophylline and reports symptoms had been improving until this morning when she became acutely dyspneic with exertion. She states she has had productive cough with yellow sputum production which is different than her chronic cough at baseline. No fevers, chills, sore throat, nasal congestion, abdominal pain, nausea, vomiting, dysuria, hematuria, lightheadedness, wheezing, chest pain. She does report she had an episode of urinary incontinence this morning which is not her baseline. On arrival, EMS noted hypoxia and was placed on 100% oxygen via non-rebreather and was transitioned to CPAP. On arrival to the ED, patient was reported to have been in respiratory distress and tripoding and was placed on BiPAP. Was weaned down to CPAP and also received IV methylp rednisolone, magnesium, DuoNebs, and IV Zosyn. She has been weaned to baseline 3 L supplemental O2. Chest x-ray shows mild vascular congestion, diffuse interstitial opacities, possible mild interstitial infiltrate vs edema. No effusions. No leukocytosis. Renal function electrolyte levels normal. Troponin detectable but within normal limits. BNP 33. She will be admitted for further evaluation and management of acute COPD exacerbation with acute on chronic hypercapnic hypoxemic respiratory failure Hospital course: Patient was admitted for shortness of breath- acute on chronic hypercapnic hypoxemic respiratory failure, severe sepsis secondary to multifactorial(pneumonia, also has parainfluenza viral URI, COPD exacerbation): Lactic acid normal, blood cultures sent, chest x-ray shows possible infiltrate lung bases. Patient was treated initially with BiPAP, also required nebs, steroids, IV antibiotics, oxygen: Patient seems to be improved significantly with above supportive care,sepsis resolved,blood cultures negative @48hrs . In addition patient was given IV Lasix also considering chest x-ray also showed some congestion, her last echo EF is 55-60% , some diastolic dysfunction-given low-dose IV diuresis for that. BNP normal: Patient might have component of HFpEF. d/w daughter added small dose lasix 20 mg po daily.consider outpatient cardiology eval. plan: please complete ceftin 500 mg po radha and azithromycin 500 mg po daily for 5 days. Please consider repeat chest imaging study in 3-4 weeks to see resolution of pneumonia. prednisone 40 mg po dialy for 4 days lasix 20 mg po daily follow up theophyllin levels in rehab follow up with pcp and consider outpatient cardiology eval. Above management discussed with the patient and her daughter in detail length- both understand and in agreement with the above plan, time spent 50 minute. Time Attestation Total time managing care of this patient today: 50 mintues. Discharge Coordination Time (in mins): 50 minute. Quality: Safe Use of Opioids Does Pt have an Active Cancer Diagnosis on the Problem List?: No Quality: Stroke Does the patient have a stroke diagnosis?: No Physical Exam Vital Signs: Vital Signs: Last Vital Signs Temp 98.1 F 07/10/23 07:45 Pulse 100 07/10/23 11:44 Resp 18 07/10/23 11:44 BP 142/76 H 07/10/23 08:07 Pulse Ox 93 07/10/23 07:45 O2 Del Method Nasal Cannula 07/10/23 07:45 O2 Flow Rate 3 07/10/23 07:45 FiO2 30 07/07/23 11:53 BMI result Body Mass Index 36.9 Appearance: Alert.? Oriented X3. cvs: rrr, [id number] . res: air entry fair , no rales or wheezing. abd: no rebound or guarding ,nt, bs present. ext pulses present , no cyanosis . neuro: axo3 , nonfocal. DS: Data Data Completed and Pending Completed studies during hospitalization [Text1]: Procedures Assistance with Respiratory Ventilation, Less than 24 Consecutive Hours, Continuous Positive Airway Pressure (06/15/23) Insertion of Endotracheal Airway into Trachea, Via Natural or Artificial Opening (03/26/22) Insertion of Infusion Device into Superior Vena Cava, Percutaneous Approach (03/26/22) Introduction of Vasopressor into Peripheral Vein, Percutaneous Approach (03/26/22) Respiratory Ventilation, 24-96 Consecutive Hours (03/26/22) Ultrasonography of Superior Vena Cava, Guidance (03/26/22) Labs on day of discharge: Preliminary micro results at discharge 07/07/23 10:23 Blood Culture - Preliminary Blood - Venous No growth after 48 hours. 07/07/23 10:19 Blood Culture - Preliminary Blood - Venous No growth after 48 hours. Imaging Chest x-ray: Radiologist's impression: ITS Impressions Chest X-Ray 07/07/23 10:40 IMPRESSION: 1. Mild vascular congestion. 2. Mild diffuse interstitial opacification especially lung bases cannot rule out mild interstitial infiltrate versus edema. 3. No significant pleural effusion. Discharge Plan Discharge Anticipated Discharge Date/Time: 07/10/23 13:20 Patient Disposition: Xfer SNF Discharge Diagnosis: Acute on chronic hypoxemic respiratory failure probably multifactorial( copd excerebation ,pneumonia ,parainfluenza uri ) Referrals: Michael Vargas MD [Primary Care Provider] - 1 Week Discharge Medications: New azithromycin 500 mg Tablet 500 mg PO Q24H Qty: 5 0RF cefuroxime axetil 500 mg Tablet 500 mg PO Q12H Qty: 10 0RF furosemide 20 mg Tablet 20 mg PO DAILY Qty: 30 0RF Protocol: Hold for SBP< HOLD for SBP < : 90 furosemide [Lasix] 20 mg tablet 20 mg PO DAILY Qty: 30 0RF Continued sertraline 100 mg tablet 1.5 tab PO DAILY omeprazole 20 mg capsule,delayed release(DR/EC) 1 cap PO BID montelukast 10 mg tablet 1 tab PO DAILY albuterol sulfate 90 mcg/actuation HFA aerosol inhaler 2 puff inhalation Q6H PRN (Reason: wheezing) losartan 50 mg tablet 50 mg PO DAILY Trelegy Ellipta 200-62.5-25 mcg blister with device 1 ea inhalation DAILY acetaminophen 325 mg Tablet 650 mg PO Q4H MDD 3g PRN (Reason: pain or fever) acetaminophen 650 mg Suppository 650 mg WI Q4H MDD 3g PRN (Reason: pain or fever) magnesium hydroxide [Milk of Magnesia] 400 mg/5 mL Suspension 30 ml PO DAILY PRN (Reason: Constipation) Rx Instructions: if no bowel movement in 3 days Fleet Enema 19-7 gram/118 mL Enema 118 ml WI DAILY PRN (Reason: Constipation) Rx Instructions: if bisacodyl is ineffective nystatin 100,000 unit/gram Powder 1 appl TOPICAL BID Rx Instructions: apply to bilateral breasts guaifenesin 600 mg Tablet Extended Release 12hr 600 mg PO Q12H Rx Instructions: for 14 days, start date 07/03/23 calcium carbonate-vitamin D3 [Calcium + D] 600 mg-5 mcg (200 unit) Tablet 1 tab PO BID bisacodyl 10 mg Suppository 10 mg WI DAILY PRN (Reason: Constipation) Rx Instructions: if milk of magnesia not effective prazosin 2 mg Capsule 2 mg PO BEDTIME potassium chloride 20 mEq Tablet Extended Release 40 meq PO QID Rx Instructions: x4 days, start date: 07/04/23, end date: 07/08/23 prednisone 10 mg tablet See Taper PO DIRECTED Taper: Prednisone 40 mg daily for 5 Days and 0 Hour 30 mg daily for 5 Days and 0 Hour 20 mg daily for 5 Days and 0 Hour 10 mg daily for 5 Days and 0 Hour Patient Comments: 40mg once daily start date: 07/04/23, end date: 07/09/23 Rx Instructions: see taper instructions ipratropium-albuterol 0.5 mg-3 mg(2.5 mg base)/3 mL solution for nebulization 3 ml inhalation Q4H Rx Instructions: q4h while awake theophylline 400 mg tablet extended release 24 hr 400 mg PO QAM albuterol sulfate 1.25 mg/3 mL solution for nebulization 1.25 mg inhalation Q4H PRN (Reason: Wheezing) potassium chloride 20 mEq Tablet Extended Release 40 meq PO TUTH@0900 Rx Instructions: TO BEGIN 07/09/23, AFTER THE POTASSIUM QID ORDER IS COMPLETE Discharge Orders: Discharge Order (Routine); Ordered 07/10/23 Ordered By: Greer Pierce Diet: Advance to usual diet Activity on Discharge: As tolerated Stand Alone Forms: Patient Portal Discharge page Print Language: Korean Care Plan Goals: Patient was admitted for shortness of breath- acute on chronic hypercapnic hypoxemic respiratory failure, severe sepsis secondary to multifactorial(pneumonia, also has parainfluenza viral URI, COPD exacerbation): Lactic acid normal, blood cultures sent, chest x-ray shows possible infiltrate lung bases. Patient was treated initially with BiPAP, also required nebs, steroids, IV antibiotics, oxygen: Patient seems to be improved significantly with above supportive care,sepsis resolved,blood cultures negative @48hrs . In addition patient was given IV Lasix also considering chest x-ray also showed some congestion, her last echo EF is 55-60% , some diastolic dysfunction-given low-dose IV diuresis for that. BNP normal: Patient might have component of HFpEF. d/w daughter added small dose lasix 20 mg po daily. please complete ceftin 500 mg po radha and azithromycin 500 mg po daily for 5 days. prednisone 40 mg po dialy for 4 days lasix 20 mg po daily follow up with pcp and consider outpatient cardiology eval. Health Concerns: as above. Plan of Treatment: as above. Assessment: as above.
--- NOTE | 2023-07-10 13:52 | MHC.CM.PN ---
pt to be dcd today at 4 to go to [facility] message left for steve jarquin
[2023-07-10] MEDS: Azithromycin 500 MG TABLET PO (14:09)
[2023-07-10] MEDS: Acetaminophen 325 MG TABLET 650 MG PO (14:09)
[2023-07-10] MEDS: cefuroxime axetiL 500 MG TABLET PO (14:09)
[2023-07-10] MEDS: Enoxaparin Sodium 40 MG/0.4 ML SYRINGE SUBCUT (16:20)
[2023-07-12 08:25] LABS: Theophylline 9.9
== END 2023-07-10 18:34 | disposition skilled nursing facility (03) | DRG 871 ==
LOC: HO.ED 15:13 → HO.EDOVER 16:00 → HO.S3 07-09 19:32
PROVIDERS: Admitting Provider Physician Assistant; Emergency Provider Student in an Organized Health Care Education/Training Program; Visit Provider Internal Medicine
DX: A41.9 Sepsis, unspecified organism (principal); J18.9 Pneumonia, unspecified organism; J96.21 Acute and chronic respiratory failure with hypoxia; J96.22 Acute and chronic respiratory failure with hypercapnia; J44.1 Chronic obstructive pulmonary disease with (acute) exacerbation; J44.0 Chronic obstructive pulmonary disease with (acute) lower respiratory infection; E66.2 Morbid (severe) obesity with alveolar hypoventilation; I11.0 Hypertensive heart disease with heart failure; B34.8 Other viral infections of unspecified site; I27.20 Pulmonary hypertension, unspecified; R32 Unspecified urinary incontinence; R65.20 Severe sepsis without septic shock; C50.919 Malignant neoplasm of unspecified site of unspecified female breast; Z79.811 Long term (current) use of aromatase inhibitors; F43.10 Post-traumatic stress disorder, unspecified; Z20.822 Contact with and (suspected) exposure to COVID-19; Z68.36 Body mass index [BMI] 36.0-36.9, adult; Z99.81 Dependence on supplemental oxygen; Z87.891 Personal history of nicotine dependence; Z79.51 Long term (current) use of inhaled steroids; Z79.899 Other long term (current) drug therapy
CPT/HCPCS: 36415; 71045; 80048; 80053; 80198; 81003; 82803; 83605; 83880; 84484; 85025; 85610; 87040; 87502; 87633; 87635; 93005; 94640; 97162; 99285; J0456; J0696; J1650; J1940; J2405; J2543; J2919; J3475

== ENCOUNTER → 2023-07-07 10:10 | Outpatient (BNV) | payer OTHER, SELFPAY | PROVIDERS: Admitting Provider Physician Assistant; Emergency Provider Student in an Organized Health Care Education/Training Program; PCP Family Medicine; Visit Provider Internal Medicine Cardiovascular Disease | DX: R94.31 Abnormal electrocardiogram [ECG] [EKG] (principal) | CPT/HCPCS: 93010 ==

== ENCOUNTER → 2023-07-07 15:53 | Outpatient (BNV) | payer OTHER, SELFPAY | PROVIDERS: Admitting Provider Physician Assistant; Emergency Provider Student in an Organized Health Care Education/Training Program; PCP Family Medicine; Visit Provider Physician Assistant | DX: J96.21 Acute and chronic respiratory failure with hypoxia (principal); J44.1 Chronic obstructive pulmonary disease with (acute) exacerbation; J96.22 Acute and chronic respiratory failure with hypercapnia | CPT/HCPCS: 99223; 99232; 99233; 99239 ==

== ENCOUNTER → 2023-07-07 15:53 | Outpatient (BNV) | payer OTHER, SELFPAY | PROVIDERS: Admitting Provider Physician Assistant; Emergency Provider Student in an Organized Health Care Education/Training Program; PCP Family Medicine; Visit Provider Internal Medicine Pulmonary Disease | DX: J96.21 Acute and chronic respiratory failure with hypoxia (principal); J44.1 Chronic obstructive pulmonary disease with (acute) exacerbation | CPT/HCPCS: 99222; 99232 ==

== ENCOUNTER 2023-07-13 13:14 | Inpatient (IN) | payer OTHER, SELFPAY ==
[2023-07-13] VITALS (12 sets, daily range): BP systolic 106–150; BP diastolic 57–106; PULSE 109–130; RESP 18–34; TEMP 36.6–37.3; O2SAT 85–96; BMI 36.6; BMI 36.1
--- NOTE | ~2023-07-13 | XR_ITS ---
EXAMINATION: XR CHEST CLINICAL INFORMATION: Shortness of breath. COMPARISON: Multiple priors, including 07/07/2023 TECHNIQUE: Frontal view of the chest was obtained. FINDINGS: The severe pulmonary emphysema is better depicted on prior chest CT exams. Pulmonary nodules that measure approximately 0.6 cm in the left upper lobe and 1.2 cm in the right upper lobe are unchanged compared to 06/11/2023 but appear to be new compared to the more remote comparison exams from years ago. No evidence of pulmonary consolidation, pleural effusion or pneumothorax. Cardiac silhouette is normal size. Pulmonary vascular pattern is normal. Bones are diffusely osteopenic. No acute osseous abnormality. XR/XR chest 1V IMPRESSION: Chronic emphysematous lung disease. There are upper lobe pulmonary nodules. Chest CT follow-up may be needed to better document the number and size of nodules.
--- NOTE | ~2023-07-13 | XR_ITS ---
EXAMINATION: XR CHEST CLINICAL INFORMATION: Persistent tachycardia COMPARISON: 07/13/2023 TECHNIQUE: Frontal view of the chest was obtained. FINDINGS: Lung volumes are symmetric. No focal consolidation is seen. No evidence of pneumothorax or pleural effusion. Mild central peribronchial thickening noted. The cardiomediastinal silhouette is stable. No acute osseous findings are seen. XR/XR chest 1V IMPRESSION: Mild central peribronchial thickening which may reflect airways disease. No focal consolidation.
--- NOTE | 2023-07-13 13:28 | ECG_ITS ---
Test Reason : sob Blood Pressure : / mmHG Vent. Rate : 126 BPM Atrial Rate : 126 BPM P-R Int : 144 ms QRS Dur : 076 ms QT Int : 308 ms P-R-T Axes : 083 -68 064 degrees QTc Int : 446 ms Sinus tachycardia Right atrial enlargement Pulmonary disease pattern Left anterior fascicular block Possible Inferior infarct , age undetermined Abnormal ECG When compared with ECG of 07-JUL-2023 10:18, No significant change was found Referred By: Kay Walter Electronically Signed By:SARIAH SAUCEDA
[2023-07-13] MEDS: Albuterol Sulfate 7.5 MG, Albuterol/Iprat 2.5/0.5MG 3 ML 3 ML INHALE (13:31)
[2023-07-13] MEDS: methylPREDNISolone Sod Succ 125 MG/2 ML VIAL IVPUSH (13:46)
[2023-07-13] MEDS: Magnesium Sulfate/H2O 2 GM/50 ML PIGGYBACK IV (13:47)
[2023-07-13 13:49] LABS: Hematocrit 49.2 % (37.0-47.0); Hemoglobin 15.9 g/dl (12.0-16.0); Mean Corpuscular HGB Conc 32.3 g/dl (31.0-35.0); Mean Corpuscular Hemoglobin 30.3 pg (27.0-33.0); Mean Corpuscular Volume 93.7 fL (80.0-98.0); Platelet Count 268 X10*3/uL (160-400); Red Blood Count 5.25 X10*6/uL (4.20-5.50); White Blood Count 7.4 X10*3/uL (4.8-10.8)
[2023-07-13 13:59] LABS: Lactic Acid 0.8 mmol/L (0.5-2.0)
[2023-07-13 14:10] LABS: Troponin-I High Sensitivity 8.9 ng/L (<3.5-17.0)
--- NOTE | 2023-07-13 14:10 | ED_ITS ---
HPI - General Adult General Chief complaint: Dyspnea Stated complaint: SOB PER EMS Time Seen by Provider: 07/13/23 13:24 Source: patient Mode of arrival: ambulatory Limitations: no limitations History of Present Illness ED Provider: DR. Walter HPI narrative: 63-year-old female with pertinent history of breast cancer, essential HTN, mood disorder, chronic hypoxemic respiratory failure due to COPD on baseline 2 L of supplemental oxygen patient had 2 recent hospitalization for acute decompensation of COPD with acute on chronic hypoxemic hypercapnic respiratory failure, patient was discharged to rehab facility 3 days ago returned today for increased shortness of breath. Patient was discharged home on Ceftin and azithromycin and Lasix 20 mg p.o. Related Data Home Medications ?Medication ?Instructions ?Recorded ?Confirmed albuterol sulfate 90 mcg/actuation 2 puff inhalation Q6H PRN wheezing 02/05/20 07/07/23 aerosol inhaler montelukast 10 mg tablet 1 tab PO DAILY 02/05/20 07/07/23 omeprazole 20 mg capsule,delayed 1 cap PO BID 02/05/20 07/07/23 release sertraline 100 mg tablet 1.5 tab PO DAILY 02/05/20 07/07/23 fluticasone fur. 200 mcg-umeclid 1 ea inhalation DAILY 06/11/23 07/07/23 62.5 mcg-vilant 25 mcg inhalat.powder (Trelegy Ellipta) losartan 50 mg tablet 50 mg PO DAILY 06/11/23 07/07/23 acetaminophen 325 mg tablet 650 mg PO Q4H PRN pain or fever 07/07/23 07/07/23 acetaminophen 650 mg rectal 650 mg [place] Q4H PRN pain or fever 07/07/23 07/07/23 suppository albuterol sulfate 1.25 mg/3 mL 1.25 mg inhalation Q4H PRN Wheezing 07/07/23 07/07/23 solution for nebulization bisacodyl 10 mg rectal suppository 10 mg [place] DAILY PRN Constipation 07/07/23 07/07/23 calcium carbonate 600 mg-vitamin 1 tab PO BID 07/07/23 07/07/23 D3 5 mcg (200 unit) tablet guaifenesin 600 mg tablet, 600 mg PO Q12H 07/07/23 07/07/23 extended release 12 hr ipratropium 0.5 mg-albuterol 3 mg 3 ml inhalation Q4H 07/07/23 07/07/23 (2.5 mg base)/3 mL nebulization soln magnesium hydroxide 400 mg/5 mL 30 ml PO DAILY PRN Constipation 07/07/23 07/07/23 oral suspension (Milk of Magnesia) nystatin 100,000 unit/gram topical 1 appl topical BID 07/07/23 07/07/23 powder potassium chloride 20 mEq 40 meq PO QID 07/07/23 07/07/23 tablet,extended release potassium chloride 20 mEq 40 meq PO TUTH@0900 07/07/23 07/07/23 tablet,extended release prazosin 2 mg capsule 2 mg PO BEDTIME 07/07/23 07/07/23 prednisone 10 mg tablet See Taper PO DIRECTED 07/07/23 07/07/23 sodium phosphates 19 gram-7 118 ml [place] DAILY PRN Constipation 07/07/23 07/07/23 gram/118 mL enema (Fleet Enema) theophylline 400 mg 400 mg PO QAM 07/07/23 07/07/23 tablet,extended release 24 hr Previous Rx's ?Medication ?Instructions ?Recorded azithromycin 500 mg tablet 500 mg PO Q24H #5 tabs 07/10/23 cefuroxime axetil 500 mg tablet 500 mg PO Q12H #10 tabs 07/10/23 furosemide 20 mg tablet 20 mg PO DAILY #30 tabs 07/10/23 furosemide 20 mg tablet (Lasix) 20 mg PO DAILY #30 tabs 07/10/23 Allergies Allergy/AdvReac Type Severity Reaction Status Date / Time Sulfa (Sulfonamide Allergy Mild RASH Verified 07/13/23 13:29 Antibiotics) codeine [Codeine] AdvReac Mild NEAR Verified 07/13/23 13:29 SYNCOPE epoprostenol [From Flolan] AdvReac Mild NAUSEA & Verified 07/13/23 13:29 VOMITING Review of Systems 2 Review of Systems: All other systems are reviewed and are negative Constitutional: Reports as per HPI and Reports no additional constitutional complaints Eyes: Reports as per HPI and Reports no additional eye complaints Reports system reviewed and no additional complaints, except as documented Cardiovascular: Reports as per HPI and Reports no additional cardiovascular complaints Respiratory: Reports as per HPI and Reports no additional respiratory complaints Gastrointestinal: Reports as per HPI and Reports no additional gastrointestinal complaints Genitourinary: Reports no additional female genitourinary complaints Musculoskeletal: Reports no additional musculoskeletal complaints Skin/Breast: Reports system reviewed and no additional complaints, except as docu Psychiatric: Reports no additional psychiatric complaints Endocrine: Reports no additional endocrine complaints Hematologic/Lymphatic: Reports no additional hematologic/lymphatic complaints Allergic/Immunologic: Reports no additional allergic/immunologic complaints Reports system reviewed and no additional complaints, except as documented and Reports Abnormal speech present [facility] Past Medical History Medical History MDD (major depressive disorder), recurrent episode, moderate PTSD (post-traumatic stress disorder) Respiratory failure Respiratory failure with hypoxia COPD (chronic obstructive pulmonary disease) Hypertension Breast CA Surgical History H/O lumpectomy Social History Social History Household Members: None Housing: Apartment Do you presently have visiting nurse or other home services: Yes (deaf interpreter's at home) Unable to assess alcohol history related to: Unable to respond Alcohol intake: former Patient Tobacco Use Status: Former Tobacco user Tobacco use type: Cigarette Smoked in Last 30 Days: No Second Hand Smoke Exposure: No Use of substances other than those prescribed or required for medical reasons: No Advance Directives: Yes Advance Directives on File: Yes Advance Directives Date on File: 04/05/22 service: No Current occupational status: disabled Physical Exam ED Vital Signs: Vital Signs - 24 hr 07/13/23 13:27 07/13/23 13:31 07/13/23 14:18 Temperature 98.2 F 99.2 F Pulse Rate 129 H 126 H 125 H Respiratory Rate 26 H 34 H 22 H Blood Pressure 137/73 133/71 Pulse Oximetry 91 L 96 Oxygen Delivery Method Nasal Cannula Nasal Cannula Oxygen Flow Rate 4 BMI result Body Mass Index 36.6 Vital signs have been reviewed and appear to be correct. Blood pressure elevated. Heart rate elevated, Respiratory rate elevated, Temperature normal. Oxygen saturation normal. Appearance: Alert. Oriented X3. No acute distress. Head: Normal external exam. Normocephalic. Atraumatic. No Inman signs noted. No raccoon eyes noted Eyes: PERRLA. EOMI. Conjunctiva and sclera normal. Eyelids normal. ENT: TM's Normal. Pharynx normal. Uvula midline. Moist mucous membranes. No trismus noted. No drooling noted. No muffled voice noted. Neck: Normal inspection. Neck supple. FROM. No adenopathy. Thyroid Normal. No meningeal signs. No neck mass noted. CVS: Normal heart rate and rhythm. Heart sound normal. No murmurs noted. Pulses normal throughout. Respiratory: No respiratory distress. Painless inspiration. Breath sounds normal. No wheezes/rales/rhonchi noted. Chest nontender. No accessory muscle usage noted or decreased air movement noted. Abdomen: Soft and nontender. Bowel sounds normal in all 4 quadrants. No distention noted. No organomegaly noted. No visible injury noted. Back: No CVA tenderness. Full range of motion noted. Skin: Skin warm and dry. Normal skin color. Normal skin turgor. No rashes/lesions/lacerations noted. Extremities: No lower extremity edema. Extremities exhibit normal range of motion. Extremities nontender. Neuro: Oriented X 3. Cranial nerve exam: II-XII are grossly intact No motor deficit. No sensory deficit. Reflexes normal. Course Reevaluation(s) Reevaluation #1: COPD exacerbation with difficulty breathing. Continue with IV Solu-Medrol, bronchodilator, continue with nasal cannula oxygen supplement. Time: 15:05 Medications Administered Generic Name Dose Route Start Last Admin Trade Name Freq PRN Reason Stop Dose Admin Magnesium Sulfate 2 gm in 50 mls @ 25 mls/hr 07/13/23 13:28 07/13/23 13:47 Magnesium Sulfate/H2o IV 07/13/23 15:27 25 mls/hr ONCE ONE Administration Discontinued Medications Generic Name Dose Route Start Last Admin Trade Name Freq PRN Reason Stop Dose Admin Albuterol Sulfate 7.5 mg/ 0 mg 07/13/23 13:26 07/13/23 13:31 Albuterol/Ipratropium 3 ml INHALE 07/13/23 13:27 10 each ONCE ONE Administration Methylprednisolone Sodium Succinate 125 mg 07/13/23 13:28 07/13/23 13:46 Methylprednisolone Sod Succ 125 Mg/2 Ml Vial IVPUSH 07/13/23 13:29 125 mg ONCE ONE Administration Medical Decision Making Differential Diagnosis Differential Diagnoses: The differential diagnosis associated with the presentation includes (COPD exacerbation, superimposed pneumonia, pneumothorax, pleural effusion, severe anemia, electrolyte derangement, IRMA.) Admission/Observation Consideration of admission/observation: Escalation of care including admission/observation considered Consult Healthcare Provider Management of the patient was discussed with: Hospitalist (Chari) Lab Data MDM Lab Attestation statement: I reviewed the patient's lab results. 07/13/23 13:43 07/13/23 13:43 Labs: Lab Results 07/13/23 07/13/23 Range/Units 13:43 13:55 WBC 7.4 (4.8-10.8) X10*3/uL RBC 5.25 D (4.20-5.50) X10*6/uL Hgb 15.9 D (12.0-16.0) g/dl Hct 49.2 H D (37.0-47.0) % MCV 93.7 (80.0-98.0) fL MCH 30.3 (27.0-33.0) pg MCHC 32.3 (31.0-35.0) g/dl RDW 13.0 (11.0-16.0) % Plt Count 268 D (160-400) X10*3/uL MPV 10.0 (9.4-12.3) fL Immature Gran % (Auto) Cancelled Neut % (Auto) Cancelled Lymph % (Auto) Cancelled [place] % (Auto) Cancelled Eos % (Auto) Cancelled Baso % (Auto) Cancelled Lymph # (Auto) Cancelled [place] # (Auto) Cancelled Eos # (Auto) Cancelled Baso # (Auto) Cancelled Abs Immat Gran (auto) Cancelled Absolute Neuts (auto) Cancelled Absolute Nucleated RBC 0.000 (0.0-0.012) X10*3/uL Nucleated RBC % (auto) 0.0 (0.0-0.2) /100WBC Neutrophils % (Manual) 83 H (45-73) % Band Neutrophils % 6 H (3-5) % Lymphocytes % (Manual) 6 L (20-40) % Atypical Lymphs % (Man) 1 (0-6) % Monocytes % (Manual) 1 L (2-11) % Metamyelocytes % 2 % Myelocytes % 1 % Abs Neuts (Manual) 6.6 (2.0-8.3) X10*3/uL Lymphocytes # (Manual) 0.4 L (1.2-4.9) X10*3/uL Atyp Lymphs # (Manual) 0.1 x10*3/uL Monocytes # (Manual) 0.1 (0.1-1.2) X10*3/uL Metamyelocytes # 0.1 X10*3/uL Myelocytes # 0.1 X10*/uL Nucleated RBCs 3 H (0-0) /100WBC Platelet Estimate NORMAL (NORMAL) Plt Morphology Comment NORMAL RBC Morphology NORMAL Sodium 141 (135-145) mmol/L Potassium 4.2 (3.3-5.1) mmol/L Chloride 86 L (96-108) mmol/L Carbon Dioxide 43 H* D (22-29) mmol/L Anion Gap 16 (12-20) BUN 18 H (9-16) mg/dL Creatinine 0.74 (0.5-1.4) mg/dL Estim Creat Clear Calc 81.4 Estimated GFR > 60 Random Glucose 197 H (60-115) mg/dL Lactic Acid 0.8 (0.5-2.0) mmol/L Calcium 9.7 D (8.4-10.2) mg/dL Total Bilirubin 0.7 (0.0-1.0) mg/dL Direct Bilirubin 0.3 (0.0-0.5) mg/dL AST 34 H (5-31) U/L ALT 47 H (0-31) U/L Alkaline Phosphatase 66 (39-117) U/L Troponin I High Sens 8.9 (<3.5-17.0) ng/L Total Protein 7.5 (6.5-8.0) g/dL Albumin 3.9 (3.5-5.0) g/dL Lipase 14 (8-78) U/L Influenza Type A (PCR) NEGATIVE (Negative) Influenza Type B (PCR) NEGATIVE (Negative) RSV RNA Qual (PCR) NEGATIVE (Negative) SARS-CoV-2 RNA (RT-PCR) NEGATIVE (Negative) Independent Interpretation I performed an independent interpretation of an: Plain X-Ray (Chest: Chronic emphysematous lung disease.) Radiology Impression Discussion of test interpretation with radiology: I have reviewed the radiologist's reading. Chronic Conditions Patient?s care impacted by: Other (COPD) Discharge Plan Discharge Clinical Impression: COPD exacerbation Patient Disposition: Admitted As Inpatient Print Language: Scottish
[2023-07-13 14:15] LABS: Alanine Aminotransferase 47 U/L (0-31); Albumin Level 3.9 g/dL (3.5-5.0); Alkaline Phosphatase 66 U/L (39-117); Anion Gap 16 (12-20); Aspartate Amino Transferase 34 U/L (5-31); Bilirubin Direct 0.3 mg/dL (0.0-0.5); Bilirubin Total 0.7 mg/dL (0.0-1.0); Blood Urea Nitrogen 18 mg/dL (9-16); Calcium 9.7 mg/dL (8.4-10.2); Carbon Dioxide 43 mmol/L (22-29); Chloride 86 mmol/L (96-108); Creatinine Clr Calc Pharmacy 81.4; Estimated Glomerular Filt Rate > 60; Glucose Random 197 mg/dL (60-115); Lipase 14 U/L (8-78); Potassium 4.2 mmol/L (3.3-5.1); Sodium 141 mmol/L (135-145); Total Protein 7.5 g/dL (6.5-8.0)
[2023-07-13 14:19] LABS: Atypical Lymph Absolute Manual 0.1 x10*3/uL; Atypical Lymphs Percent Manual 1 % (0-6); Band Neutrophils Percent 6 % (3-5); Lymphocytes Absolute Manual 0.4 X10*3/uL (1.2-4.9); Lymphocytes Percent Manual 6 % (20-40); Metamyelocytes Absolute 0.1 X10*3/uL; Metamyelocytes Percent 2 %; Monocytes Absolute Manual 0.1 X10*3/uL (0.1-1.2); Monocytes Percent Manual 1 % (2-11); Myelocytes Absolute 0.1 X10*/uL; Myelocytes Percent 1 %; Neutrophils Absolute Manual 6.6 X10*3/uL (2.0-8.3); Neutrophils Percent Manual 83 % (45-73); Nucleated Red Blood Cells 3 /100WBC (0-0)
[2023-07-13 14:21] LABS: Platelet Estimate NORMAL (NORMAL); Platelet Morphology Comment NORMAL; RBC Morphology NORMAL
[2023-07-13 14:47] LABS: Influenza A PCR NEGATIVE (Negative); Influenza B PCR NEGATIVE (Negative); Resp Syncy Virus RNA Qual PCR NEGATIVE (Negative); SARS COV2 PCR INHOUSE NEGATIVE (Negative)
--- NOTE | 2023-07-13 15:46 | PHA.MEDREC ---
Pharmacy Consult ? Medication Reconciliation Pharmacy has completed the medication reconciliation. Used med list from [facility]. Patient is supposed to be on azithromycin 500 mg daily until 07/15/23 and cefuroxime 500 mg q12h until 07/20/23. PREDNISONE TAPERING SCHEDULE: 30 mg daily 07/09/23 - 07/14/23 20 mg daily 07/14/23 - 07/19/23 10 mg daily 07/19/23 - 07/24/23
[2023-07-13 16:04] LABS: B Type Natriuretic Peptide 25 pg/mL (<100)
[2023-07-13 16:16] LABS: VBG Base Excess 19.1 mmol/L; VBG HCO3 50 mmol/L (22-26); VBG pCO2 92 mmHg; VBG pH 7.35 (7.32-7.43); VBG pO2 53 mmHg
[2023-07-13 16:18] LABS: Venous Blood Gas Refer to POC result
--- NOTE | 2023-07-13 16:22 | P.HPHOSP_ITS ---
History of Present Illness Date of Service: 07/13/23 Attending physician on admission: Greer Pierce Chief Complaint: sob 63-year-old female with pertinent history of breast cancer, essential hypertension, pulmonary hypertension, mood disorder, chronic hypoxemic respiratory failure due to COPD on baseline 2 L supplemental oxygen -came to the hospital because of shortness of breath on minimal exertion, also as per the ED physician patient was also desatting at the long term-patient was given nebs steroids in the ED patient still feels short of breath with a little exertion. Labs including CBC, BMP Bnp-seems fine except mild elevation LFT, has elevated bicarb. Chest x-ray fine. Patient was given nebs, steroids and requested admission for COPD exacerbation, patient recently discharged for acute on chronic hypercarbic respiratory failure secondary to COPD exacerbation/possible pneumonia/parainfluenza 3 URI-patient went to rehab with p.o. antibiotics and steroids. Getting admitted for further management of acute copd exaceberbation with acute on chronic hypercapnic hypoxemic respiratory failure Review of Systems 2 Review of Systems: As above. Yes all other systems are reviewed and are negative [facility] Medical History MDD (major depressive disorder), recurrent episode, moderate PTSD (post-traumatic stress disorder) Respiratory failure Respiratory failure with hypoxia COPD (chronic obstructive pulmonary disease) Hypertension Breast CA Surgical History H/O lumpectomy Social History Household Members: None Housing: Apartment Do you presently have visiting nurse or other home services: Yes (customer training specialist's at home) Unable to assess alcohol history related to: Unable to respond Alcohol intake: former Patient Tobacco Use Status: Former Tobacco user Tobacco use type: Cigarette Smoked in Last 30 Days: No Second Hand Smoke Exposure: No Use of substances other than those prescribed or required for medical reasons: No Advance Directives: Yes Advance Directives on File: Yes Advance Directives Date on File: 04/05/22 service: No Current occupational status: disabled Meds Allergies Allergy/AdvReac Type Severity Reaction Status Date / Time Sulfa (Sulfonamide Allergy Mild RASH Verified 07/13/23 13:29 Antibiotics) codeine [Codeine] AdvReac Mild NEAR Verified 07/13/23 13:29 SYNCOPE epoprostenol [From Flolan] AdvReac Mild NAUSEA & Verified 07/13/23 13:29 VOMITING Active Medications: Current Medications Albuterol/Ipratropium (Albuterol/Iprat 2.5/0.5mg 3 Ml Ampul.Neb) 3 ml INHALE Q4H JASON Albuterol/Ipratropium (Albuterol/Iprat 2.5/0.5mg 3 Ml Ampul.Neb) 3 ml INHALE Q3H PRN PRN Reason: sob Azithromycin (Azithromycin 500 Mg Tablet) 500 mg PO DAILY JASON Cefuroxime Axetil (Cefuroxime Axetil 500 Mg Tablet) 500 mg PO ONCE ONE Stop: 07/13/23 16:20 Methylprednisolone Sodium Succinate (Methylprednisolone Sod Succ 40 Mg/Ml Vial) 40 mg IVPUSH BID JASON Sodium Chloride (0.9 % Sodium Chloride Flush 3 Ml Syringe) 3 ml IVFLUSH QSHIFT [facility] Home Medications ?Medication ?Instructions ?Recorded ?Confirmed ?Last Taken ?Type albuterol sulfate 90 mcg/actuation 2 puff inhalation Q6H PRN wheezing 02/05/20 07/13/23 06/07/23 History aerosol inhaler montelukast 10 mg tablet 1 tab PO DAILY 02/05/20 07/13/23 06/07/23 History omeprazole 20 mg capsule,delayed 1 cap PO BID 02/05/20 07/13/23 06/07/23 History release sertraline 100 mg tablet 1.5 tab PO DAILY 02/05/20 07/13/23 06/07/23 History fluticasone fur. 200 mcg-umeclid 1 ea inhalation DAILY 06/11/23 07/13/23 06/07/23 History 62.5 mcg-vilant 25 mcg inhalat.powder (Trelegy Ellipta) losartan 50 mg tablet 50 mg PO DAILY 06/11/23 07/13/23 06/07/23 History acetaminophen 325 mg tablet 650 mg PO Q4H PRN pain or fever 07/07/23 07/13/23 Unknown History acetaminophen 650 mg rectal 650 mg [place] Q4H PRN pain or fever 07/07/23 07/13/23 Unknown History suppository albuterol sulfate 1.25 mg/3 mL 1.25 mg inhalation Q4H PRN Wheezing 07/07/23 07/13/23 Unknown History solution for nebulization bisacodyl 10 mg rectal suppository 10 mg [place] DAILY PRN Constipation 07/07/23 07/13/23 Unknown History calcium carbonate 600 mg-vitamin 1 tab PO BID 07/07/23 07/13/23 Unknown History D3 5 mcg (200 unit) tablet guaifenesin 600 mg tablet, 600 mg PO Q12H 07/07/23 07/13/23 Unknown History extended release 12 hr ipratropium 0.5 mg-albuterol 3 mg 3 ml inhalation Q4H 07/07/23 07/13/23 Unknown History (2.5 mg base)/3 mL nebulization soln magnesium hydroxide 400 mg/5 mL 30 ml PO DAILY PRN Constipation 07/07/23 07/13/23 Unknown History oral suspension (Milk of Magnesia) nystatin 100,000 unit/gram topical 1 appl topical BID 07/07/23 07/13/23 Unknown History powder potassium chloride 20 mEq 40 meq PO TUTH@0900 07/07/23 07/13/23 Unknown History tablet,extended release prazosin 2 mg capsule 2 mg PO BEDTIME 07/07/23 07/13/23 Unknown History prednisone 10 mg tablet See Taper PO DIRECTED 07/07/23 07/13/23 Unknown History sodium phosphates 19 gram-7 118 ml [place] DAILY PRN Constipation 07/07/23 07/13/23 Unknown History gram/118 mL enema (Fleet Enema) theophylline 400 mg 400 mg PO QAM 07/07/23 07/13/23 Unknown History tablet,extended release 24 hr Physical Exam 2 Vital Signs and Narrative: Vital Signs: Last Vital Signs Temp 99.2 F 07/13/23 14:18 Pulse 118 H 07/13/23 15:15 Resp 24 H 07/13/23 15:15 BP 117/69 07/13/23 15:15 Pulse Ox 94 07/13/23 15:15 O2 Del Method Nasal Cannula 07/13/23 15:15 O2 Flow Rate 4 07/13/23 14:18 Oxygen Flow Rate 4 07/13/23 13:27 BMI result Body Mass Index 36.6 Appearance: Alert.? Oriented X3. cvs: rrr, [id number] . res: air entry diminshed ,mild b/l wheezing,no rales. abd: no rebound or guarding ,nt, bs present. ext pulses present , no cyanosis . neuro: axo3 , nonfocal. Results Labs 07/13/23 13:43 07/13/23 13:43 Labs: Laboratory Results - last 24 hr 07/13/23 07/13/23 07/13/23 13:43 13:55 16:10 MCV 93.7 MCH 30.3 MCHC 32.3 RDW 13.0 Plt Count 268 D MPV 10.0 Immature Gran % (Auto) Cancelled Neut % (Auto) Cancelled Lymph % (Auto) Cancelled [place] % (Auto) Cancelled Eos % (Auto) Cancelled Baso % (Auto) Cancelled Lymph # (Auto) Cancelled [place] # (Auto) Cancelled Eos # (Auto) Cancelled Baso # (Auto) Cancelled Abs Immat Gran (auto) Cancelled Absolute Neuts (auto) Cancelled Absolute Nucleated RBC 0.000 Nucleated RBC % (auto) 0.0 Neutrophils % (Manual) 83 H Band Neutrophils % 6 H Lymphocytes % (Manual) 6 L Atypical Lymphs % (Man) 1 Monocytes % (Manual) 1 L Metamyelocytes % 2 Myelocytes % 1 Abs Neuts (Manual) 6.6 Lymphocytes # (Manual) 0.4 L Atyp Lymphs # (Manual) 0.1 Monocytes # (Manual) 0.1 Metamyelocytes # 0.1 Myelocytes # 0.1 Nucleated RBCs 3 H Platelet Estimate NORMAL Plt Morphology Comment NORMAL RBC Morphology NORMAL VBG pH 7.35 VBG pCO2 92 VBG pO2 53 VBG HCO3 50 H VBG O2 Saturation 82.0 VBG Base Excess 19.1 Anion Gap 16 Estim Creat Clear Calc 81.4 Estimated GFR > 60 Random Glucose 197 H Lactic Acid 0.8 Calcium 9.7 D Total Bilirubin 0.7 Direct Bilirubin 0.3 AST 34 H ALT 47 H Alkaline Phosphatase 66 Troponin I High Sens 8.9 B-Natriuretic Peptide 25 Total Protein 7.5 Albumin 3.9 Lipase 14 Influenza Type A (PCR) NEGATIVE Influenza Type B (PCR) NEGATIVE RSV RNA Qual (PCR) NEGATIVE SARS-CoV-2 RNA (RT-PCR) NEGATIVE Imaging Radiologist's Impressions: Impressions Chest X-Ray 07/13/23 13:56 IMPRESSION: Chronic emphysematous lung disease. There are upper lobe pulmonary nodules. Chest CT follow-up may be needed to better document the number and size of nodules. Assessment and Plan (1) Acute and chronic respiratory failure with hypoxia: Status: Acute (2) Acute hypoxic respiratory failure: Status: Acute (3) COPD exacerbation: Status: Acute Plan 63-year-old female with pertinent history of breast cancer, essential hypertension, pulmonary hypertension, mood disorder, chronic hypoxemic respiratory failure due to COPD on baseline 2 L supplemental oxygen admitted for further management of acute copd exaceberbation with acute on chronic hypercapnic hypoxemic respiratory failure: Patient was sent from the rehab because sats dropped down as per ED, discussed with the ED and family. Acute COPD exacerbation with acute on chronic hypercapnic hypoxemic respiratory failure probably d/t recent underlying PNA, uri -parainfluenza virus vb Theophyline levels 9.9 blood culture neg@48hrs continue IV methylprednisolone 40 mg q.8h,DuoNebs q.4h while awake and p.r.n. ,oxygen taper will consider pulm eval if does not improve. Med needs to be reconciled after reconciliation please start: hypertension:continue losartan mood disorder-continue home meds. history of breast cancer-continue anastrozole. Morbid obesity: encouraged to lose weight and cut down calories. DVT prophylaxis-Lovenox Full code Patient will benefit from 2 midnight stay for management of acute on chronic hypoxemic hypercapnic respiratory failure with COPD exacerbation requiring IV steroids, nebulizers, and expert consultation given recurrent hospitalizations for COPD exacerbation. Above management discussed with the patient and her family in detail length, time spent 70 minute. Patient full code. Quality Stroke Does the patient have a stroke diagnosis?: No VTE Prior VTE?: No VTE Risk Level:: Medical - moderate - high VTE Device Contraindication: N/A - Device Ordered VTE Drug Contraindication: N/A - Med Ordered
--- NOTE | 2023-07-13 16:40 | PC.NURSE ---
patients co2 elevated, per dr. brewer titrate to 1-2 liters to maintain 02 sat between 88-92%
[2023-07-13] MEDS: cefuroxime axetiL 500 MG TABLET PO (17:28)
[2023-07-13] MEDS: Azithromycin 500 MG TABLET PO (17:28)
[2023-07-13] MEDS: Enoxaparin Sodium 40 MG/0.4 ML SYRINGE SUBCUT (17:28)
[2023-07-13] MEDS: Albuterol/Iprat 2.5/0.5MG 3 ML AMPUL.NEB INHALE (19:43)
[2023-07-13] MEDS: Prazosin HCL 1 MG CAPSULE 2 MG PO (20:20)
[2023-07-13] MEDS: guaiFENesin LA 600 MG TAB.ER.12H PO (20:21)
[2023-07-13] MEDS: methylPREDNISolone Sod Succ 40 MG/ML VIAL IVPUSH (20:21)
[2023-07-13] MEDS: Calcium + Vitamin D 250 MG TABLET 500 MG PO (20:21)
[2023-07-13] MEDS: 0.9 % Sodium Chloride Flush 3 ML SYRINGE IVFLUSH (23:59)
[2023-07-14] VITALS (14 sets, daily range): BP systolic 107–137; BP diastolic 55–98; PULSE 98–128; RESP 18–22; TEMP 36.1–36.9; O2SAT 88–97
--- NOTE | 2023-07-14 | ECG_ITS ---
Test Reason : Tachycardia Blood Pressure : / mmHG Vent. Rate : 123 BPM Atrial Rate : 123 BPM P-R Int : 142 ms QRS Dur : 074 ms QT Int : 326 ms P-R-T Axes : 095 238 121 degrees QTc Int : 466 ms Suspect limb lead reversal, interpretation assumes no reversal Sinus tachycardia with Premature atrial complexes Right atrial enlargement Right superior axis deviation Pulmonary disease pattern Nonspecific ST abnormality Abnormal ECG When compared with ECG of 13-JUL-2023 13:29, Premature atrial complexes are now Present Left anterior fascicular block is no longer Present Referred By: Glenis Jorge Electronically Signed By:NIR BANDA MD
[2023-07-14 00:06] LABS: Venous Blood Gas Refer to POC result
[2023-07-14 00:06] LABS: VBG Base Excess 21.7 mmol/L; VBG HCO3 50 mmol/L (22-26); VBG pCO2 72 mmHg; VBG pH 7.45 (7.32-7.43); VBG pO2 138 mmHg
[2023-07-14] MEDS: Albuterol/Iprat 2.5/0.5MG 3 ML AMPUL.NEB INHALE ×6 (04:10→23:19)
[2023-07-14] MEDS: Omeprazole 20 MG CAPSULE.DR PO ×2 (06:40→15:58)
[2023-07-14] MEDS: 0.9 % Sodium Chloride Flush 3 ML SYRINGE IVFLUSH ×3 (07:14→23:44)
[2023-07-14 07:20] LABS: Anion Gap 12 (12-20); Blood Urea Nitrogen 27 mg/dL (9-16); Calcium 9.7 mg/dL (8.4-10.2); Chloride 86 mmol/L (96-108); Creatinine Clr Calc Pharmacy 69.5; Estimated Glomerular Filt Rate > 60; Glucose Random 148 mg/dL (60-115); Potassium 4.1 mmol/L (3.3-5.1); Sodium 139 mmol/L (135-145)
[2023-07-14] MEDS: Montelukast Sodium 10 MG TABLET PO (07:22)
[2023-07-14] MEDS: Sertraline HCL 50 MG TABLET 150 MG PO (07:23)
[2023-07-14] MEDS: Calcium + Vitamin D 250 MG TABLET 500 MG PO ×2 (07:23→20:20)
[2023-07-14] MEDS: Losartan Potassium 50 MG TABLET PO (07:23)
[2023-07-14] MEDS: Theophylline Anhydrous ER 400 MG TAB.ER.24H PO (07:23)
[2023-07-14] MEDS: guaiFENesin LA 600 MG TAB.ER.12H PO ×2 (07:23→20:21)
[2023-07-14] MEDS: methylPREDNISolone Sod Succ 40 MG/ML VIAL IVPUSH ×2 (07:24→20:21)
[2023-07-14] MEDS: acetaZOLAMIDE 250 MG TABLET PO ×2 (07:24→20:21)
[2023-07-14] MEDS: cefuroxime axetiL 500 MG TABLET PO ×2 (07:24→20:20)
[2023-07-14 07:31] LABS: Appearance Urine Cloudy; Color Urine Dark Yellow; Glucose Urine UA Negative (Negative); Leukocyte Esterase Urine Trace (Negative); Nitrite Urine Negative (Negative); PH 5.5 (5.0-9.0); Specific Gravity - Urine 1.025 (1.005-1.025); UMIC TRIGGER UACC YES; Urine Blood Negative (Negative); Urine Ketones Trace mg/dL (Negative); Urine Protein 30 (1+) mg/dL (Neg-Trace)
[2023-07-14] MEDS: Fluticasone/Umeclidinium/Vilanterol 200/62.5/25 BLST.W.DEV 1 PUFF INHALE (07:38)
[2023-07-14 07:46] LABS: Bacteria Urine None Seen (None Seen); Calcium Oxalate Crystals Urine Present; Hyaline Casts Urine 0-2 /LPF (0-2); RBC Urine 0-2 /HPF (0-2); WBC Urine 0-5 /HPF (0-5)
[2023-07-14 07:48] LABS: Carbon Dioxide 45 mmol/L (22-29)
--- NOTE | 2023-07-14 13:21 | HO.PM.IMPN ---
Subjective Subjective Date of Service: 07/14/23 Interval History: copd execerbation Review of Systems Feels short of breath with minimal exertion, dry cough Feel anxious also. Physical Exam Vital Signs: Vital Signs: Last Vital Signs Temp 96.9 F 07/14/23 07:09 Pulse 113 H 07/14/23 11:29 Resp 18 07/14/23 11:29 BP 109/58 L 07/14/23 07:23 Pulse Ox 88 L 07/14/23 07:40 O2 Del Method Nasal Cannula 07/14/23 07:41 O2 Flow Rate 4 07/14/23 07:41 Oxygen Flow Rate 4 07/13/23 13:27 BMI result Body Mass Index 36.1 Appearance: Alert.? Oriented X3. cvs: rrr, [id number] . res: air entry diminshed ,has b/l whezing abd: no rebound or guarding ,nt, bs present. ext pulses present , no cyanosis . neuro: axo3 , nonfocal. Objective Data Active Medications Acetaminophen (Acetaminophen Supp 650 Mg Supp.Rect) 650 mg [place] Q4H PRN PRN Reason: pain or fever Acetazolamide (Acetazolamide 250 Mg Tablet) 250 mg PO BID [facility] Albuterol Sulfate (Albuterol Sulfate (0.042%) 1.25 Mg/3 Ml Vial.Neb) 1.25 mg INHALE Q4H PRN PRN Reason: Wheezing Albuterol Sulfate (Albuterol Sulfate 90 Mcg 8 Gm Inhaler) 2 puff INHALE Q6H PRN PRN Reason: wheezing Albuterol/Ipratropium (Albuterol/Iprat 2.5/0.5mg 3 Ml Ampul.Neb) 3 ml INHALE RQ4H [facility] Last Admin: 07/14/23 11:28 Dose: 3 ml Documented By: JUNIOR Albuterol/Ipratropium (Albuterol/Iprat 2.5/0.5mg 3 Ml Ampul.Neb) 3 ml INHALE Q3H PRN PRN Reason: sob Azithromycin (Azithromycin 500 Mg Tablet) 500 mg PO Q24H [facility] Last Admin: 07/13/23 17:28 Dose: 500 mg Documented By: ZHENG Bisacodyl (Bisacodyl 10 Mg Supp.Rect) 10 mg [place] DAILY PRN PRN Reason: Constipation Calcium Carbonate/Cholecalciferol (Calcium + Vitamin D 250 Mg Tablet) 500 mg PO BID [facility] Last Admin: 07/14/23 07:23 Dose: 500 mg Documented By: YANET Cefuroxime Axetil (Cefuroxime Axetil 500 Mg Tablet) 500 mg PO Q12H [facility] Last Admin: 07/14/23 07:24 Dose: 500 mg Documented By: YANET Enoxaparin Sodium (Enoxaparin Sodium 40 Mg/0.4 Ml Syringe) 40 mg SUBCUT Q24H [facility] Last Admin: 07/13/23 17:28 Dose: 40 mg Documented By: ZHENG Fluticasone/Umeclidinium/Vilanterol (Fluticasone/Umeclidinium/Vilanterol 200/62.5/25 Blst.W.Dev) 1 puff INHALE RDAILY [facility] Last Admin: 07/14/23 07:38 Dose: 1 puff Documented By: JUNIOR Guaifenesin (Guaifenesin La 600 Mg Tab.Er.12h) 600 mg PO BID [facility] Last Admin: 07/14/23 07:23 Dose: 600 mg Documented By: YANET Losartan Potassium (Losartan Potassium 50 Mg Tablet) 50 mg PO DAILY [facility]; Protocol Last Admin: 07/14/23 07:23 Dose: 50 mg Documented By: YANET Magnesium Hydroxide (Milk Of Magnesia 30 Ml Oral.Susp) 30 ml PO DAILY PRN PRN Reason: Constipation Methylprednisolone Sodium Succinate (Methylprednisolone Sod Succ 40 Mg/Ml Vial) 40 mg IVPUSH BID [facility] Last Admin: 07/14/23 07:24 Dose: 40 mg Documented By: YANET Montelukast Sodium (Montelukast Sodium 10 Mg Tablet) 10 mg PO DAILY [facility] Last Admin: 07/14/23 07:22 Dose: 10 mg Documented By: YANET Omeprazole (Omeprazole 20 Mg Capsule.Dr) 20 mg PO BID@0630,1630 [facility] Last Admin: 07/14/23 06:40 Dose: 20 mg Documented By: PHILL Potassium Chloride (Potassium Chloride Er 20 Meq Tab.Er.Prt) 40 meq PO TUTH@0900 [facility] Prazosin HCl (Prazosin Hcl 1 Mg Capsule) 2 mg PO BEDTIME [facility]; Protocol Last Admin: 07/13/23 20:20 Dose: 2 mg Documented By: GISSELLE Sertraline HCl (Sertraline Hcl 50 Mg Tablet) 150 mg PO DAILY [facility] Last Admin: 07/14/23 07:23 Dose: 150 mg Documented By: YANET Sodium Biphosphate/Sodium Phosphate (Sodium Phosphate,[place]-Dibasic 133 Ml Enema) 118 ml [place] DAILY PRN PRN Reason: Constipation Sodium Chloride (0.9 % Sodium Chloride Flush 3 Ml Syringe) 3 ml IVFLUSH QSHIFT [facility] Last Admin: 07/14/23 07:14 Dose: 3 ml Documented By: YANET Theophylline (Theophylline Anhydrous Er 400 Mg Tab.Er.24h) 400 mg PO DAILY [facility] Last Admin: 07/14/23 07:23 Dose: 400 mg Documented By: YANET Labs 07/13/23 13:43 07/14/23 06:38 Labs: Laboratory Results - last 24 hr 07/13/23 07/13/23 07/13/23 13:43 13:55 16:10 MCV 93.7 MCH 30.3 MCHC 32.3 RDW 13.0 Plt Count 268 D MPV 10.0 Immature Gran % (Auto) Cancelled Neut % (Auto) Cancelled Lymph % (Auto) Cancelled [place] % (Auto) Cancelled Eos % (Auto) Cancelled Baso % (Auto) Cancelled Lymph # (Auto) Cancelled [place] # (Auto) Cancelled Eos # (Auto) Cancelled Baso # (Auto) Cancelled Abs Immat Gran (auto) Cancelled Absolute Neuts (auto) Cancelled Absolute Nucleated RBC 0.000 Nucleated RBC % (auto) 0.0 Neutrophils % (Manual) 83 H Band Neutrophils % 6 H Lymphocytes % (Manual) 6 L Atypical Lymphs % (Man) 1 Monocytes % (Manual) 1 L Metamyelocytes % 2 Myelocytes % 1 Abs Neuts (Manual) 6.6 Lymphocytes # (Manual) 0.4 L Atyp Lymphs # (Manual) 0.1 Monocytes # (Manual) 0.1 Metamyelocytes # 0.1 Myelocytes # 0.1 Nucleated RBCs 3 H Platelet Estimate NORMAL Plt Morphology Comment NORMAL RBC Morphology NORMAL Hold Purple Top VBG pH 7.35 VBG pCO2 92 VBG pO2 53 VBG HCO3 50 H VBG O2 Saturation 82.0 VBG Base Excess 19.1 Anion Gap 16 Estim Creat Clear Calc 81.4 Estimated GFR > 60 Random Glucose 197 H Lactic Acid 0.8 Calcium 9.7 D Total Bilirubin 0.7 Direct Bilirubin 0.3 AST 34 H ALT 47 H Alkaline Phosphatase 66 Troponin I High Sens 8.9 B-Natriuretic Peptide 25 Total Protein 7.5 Albumin 3.9 Lipase 14 Urine Color Urine Appearance Urine pH Ur Specific [place] Urine Protein Urine Glucose (UA) Urine Ketones Urine Blood Urine Nitrite Ur Leukocyte Esterase Urine RBC Urine WBC Ur Squamous Epith Cells Calcium Oxalate Crystal Urine Bacteria Hyaline Casts Influenza Type A (PCR) NEGATIVE Influenza Type B (PCR) NEGATIVE RSV RNA Qual (PCR) NEGATIVE SARS-CoV-2 RNA (RT-PCR) NEGATIVE 07/13/23 07/14/23 07/14/23 23:57 06:38 07:12 MCV MCH MCHC RDW Plt Count MPV Immature Gran % (Auto) Neut % (Auto) Lymph % (Auto) [place] % (Auto) Eos % (Auto) Baso % (Auto) Lymph # (Auto) [place] # (Auto) Eos # (Auto) Baso # (Auto) Abs Immat Gran (auto) Absolute Neuts (auto) Absolute Nucleated RBC Nucleated RBC % (auto) Neutrophils % (Manual) Band Neutrophils % Lymphocytes % (Manual) Atypical Lymphs % (Man) Monocytes % (Manual) Metamyelocytes % Myelocytes % Abs Neuts (Manual) Lymphocytes # (Manual) Atyp Lymphs # (Manual) Monocytes # (Manual) Metamyelocytes # Myelocytes # Nucleated RBCs Platelet Estimate Plt Morphology Comment RBC Morphology Hold Purple Top SEE NOTE VBG pH 7.45 H VBG pCO2 72 VBG pO2 138 VBG HCO3 50 H VBG O2 Saturation 99.0 VBG Base Excess 21.7 Anion Gap 12 Estim Creat Clear Calc 69.5 Estimated GFR > 60 Random Glucose 148 H Lactic Acid Calcium 9.7 Total Bilirubin Direct Bilirubin AST ALT Alkaline Phosphatase Troponin I High Sens B-Natriuretic Peptide Total Protein Albumin Lipase Urine Color Dark Yellow Urine Appearance Cloudy Urine pH 5.5 Ur Specific [place] 1.025 Urine Protein 30 (1+) H Urine Glucose (UA) Negative Urine Ketones Trace Urine Blood Negative Urine Nitrite Negative Ur Leukocyte Esterase Trace H Urine RBC 0-2 Urine WBC 0-5 Ur Squamous Epith Cells 3-5 Calcium Oxalate Crystal Present Urine Bacteria None Seen Hyaline Casts 0-2 Influenza Type A (PCR) Influenza Type B (PCR) RSV RNA Qual (PCR) SARS-CoV-2 RNA (RT-PCR) Assessment and Plan (1) COPD exacerbation: Status: Acute (2) Acute hypoxic respiratory failure: Status: Acute (3) History of pulmonary hypertension: Status: Acute (4) Chronic hypoxic respiratory failure: Status: Acute (5) Hypoventilation associated with obesity: Status: Acute Plan 63-year-old female with pertinent history of breast cancer, essential hypertension, pulmonary hypertension, mood disorder, chronic hypoxemic respiratory failure due to COPD on baseline 2 L supplemental oxygen admitted for further management of acute copd exaceberbation with acute on chronic hypercapnic hypoxemic respiratory failure: Patient was sent from the rehab because sats dropped down as per ED, discussed with the ED and family. Acute COPD exacerbation with acute on chronic hypercapnic hypoxemic respiratory failure probably d/t recent underlying PNA, uri -parainfluenza virus. Theophyline levels 9.9 continue IV methylprednisolone ,DuoNebs q.4h while awake and p.r.n. ,oxygen taper ,loratidine ,added dimox. will consider pulm eval if does not improve. Med needs to be reconciled after reconciliation please start: hypertension:continue losartan mood disorder-continue home meds. history of breast cancer-continue anastrozole. Morbid obesity: encouraged to lose weight and cut down calories. DVT prophylaxis-Lovenox Full code ongoing need stay for management of acute on chronic hypoxemic hypercapnic respiratory failure with COPD exacerbation requiring IV steroids, nebulizers, and expert consultation given recurrent hospitalizations for COPD exacerbation. Quality Stroke Does the patient have a stroke diagnosis?: No VTE Prior VTE?: No VTE Risk Level:: Medical - moderate - high VTE Device Contraindication: N/A - Device Ordered VTE Drug Contraindication: N/A - Med Ordered
[2023-07-14] MEDS: Loratadine 10 MG TABLET PO (13:58)
--- NOTE | 2023-07-14 14:45 | MHC.CM.PN ---
PT READMITTED AFTER DC BACK TO [facility] ON 07/09 SHE REPORTS THERE WAS NO PLANNED DC FROM [facility], SO SHE WILL NEED TO RETURN AT DC SHE USUALLY LIVES ALONE AND HAS CORPORATE EXECUTIVE SERVICES PT USES OXYGEN FROM [facility] AT HOME, SHE ALSO HAS A CANE AND WALKER SHE DOES NOT USE AT BASELINE PT HAS A HCP ON FILE SHE DOES NOT HAVE A PCP IMM DELIVERED DCP: RETURN TO [facility] TO CONTINUE STR BLS TRANSPORT
[2023-07-14] MEDS: Azithromycin 500 MG TABLET PO (17:51)
[2023-07-14] MEDS: Enoxaparin Sodium 40 MG/0.4 ML SYRINGE SUBCUT (17:51)
[2023-07-14] MEDS: Prazosin HCL 1 MG CAPSULE 2 MG PO (20:20)
--- NOTE | 2023-07-14 22:04 | PC.NURSE ---
around 0 pt's HR had been elevated 125-130 for about 30 minutes, Dr. Souza made aware, EKG done and labs ordered. Will continue to monitor.
[2023-07-14 22:10] LABS: MANUAL DIFF FLAG NO
[2023-07-14 22:17] LABS: Basophils Percent Auto 0.2 % (0-2); Eosinophils Percent Auto 0.2 % (0-4); Hematocrit 44.3 % (37.0-47.0); Hemoglobin 13.9 g/dl (12.0-16.0); Imm Gran Abs Auto 0.22 X10*3/uL (0.00-0.03); Imm Gran Pct Auto 2.7 % (0.0-0.4); Lymphocytes Absolute Auto 0.5 X10*3/uL (1.2-4.9); Lymphocytes Percent Auto 6.2 % (20-40); Mean Corpuscular HGB Conc 31.4 g/dl (31.0-35.0); Mean Corpuscular Hemoglobin 29.7 pg (27.0-33.0); Mean Corpuscular Volume 94.7 fL (80.0-98.0); Mean Platelet Volume 10.1 fL (9.4-12.3); Monocytes Absolute Auto 0.5 X10*3/uL (0.1-1.2); Monocytes Percent Auto 5.7 % (2-11); Neutrophils Absolute Auto 6.9 x10*3/uL (2.0-8.3); Platelet Count 196 X10*3/uL (160-400); Red Blood Count 4.68 X10*6/uL (4.20-5.50); Red Cell Distribution Width 12.9 % (11.0-16.0); White Blood Count 8.1 X10*3/uL (4.8-10.8)
[2023-07-14 22:28] LABS: Lactic Acid 0.9 mmol/L (0.5-2.0)
[2023-07-14 22:39] LABS: D Dimer High Sensitivity < 150 NG/ML
[2023-07-14 22:50] LABS: Alanine Aminotransferase 52 U/L (0-31); Albumin Level 3.5 g/dL (3.5-5.0); Alkaline Phosphatase 61 U/L (39-117); Anion Gap 17 (12-20); Aspartate Amino Transferase 27 U/L (5-31); Bilirubin Total 0.4 mg/dL (0.0-1.0); Blood Urea Nitrogen 39 mg/dL (9-16); Calcium 9.8 mg/dL (8.4-10.2); Carbon Dioxide 40 mmol/L (22-29); Chloride 84 mmol/L (96-108); Creatinine Clr Calc Pharmacy 37.8; Estimated Glomerular Filt Rate 33; Glucose Random 138 mg/dL (60-115); Magnesium 2.3 mg/dL (1.6-2.6); Sodium 137 mmol/L (135-145); Total Protein 6.2 g/dL (6.5-8.0)
[2023-07-15] VITALS (14 sets, daily range): BP systolic 103–149; BP diastolic 54–82; PULSE 110–126; RESP 18–30; TEMP 36.2–37.2; O2SAT 80–99
[2023-07-15 01:38] LABS: ABG Base Excess 16.1 mmol/L; ABG HCO3 46 mmol/L (22-26); ABG pCO2 84 mmHg (32-45); ABG pH 7.35 (7.35-7.45); ABG pO2 81 mmHg (83-108)
--- NOTE | 2023-07-15 01:55 | PC.NURSE ---
Hospitalist contacted via [email or web address] as IMC notified me of patient's HR 120s-130s persistantly. Appears to have similar episode several hours ago. Labs and imaging ordered and supervisor paste plant notified.
[2023-07-15 02:16] LABS: ABG Refer to POC result
[2023-07-15] MEDS: 0.9 % Sodium Chloride 250 ML IV (02:45)
[2023-07-15 06:48] LABS: Anion Gap 18 (12-20); Blood Urea Nitrogen 42 mg/dL (9-16); Calcium 9.7 mg/dL (8.4-10.2); Chloride 84 mmol/L (96-108); Creatinine Clr Calc Pharmacy 47.1; Estimated Glomerular Filt Rate 42; Glucose Random 111 mg/dL (60-115); Potassium 3.9 mmol/L (3.3-5.1); Sodium 138 mmol/L (135-145)
[2023-07-15] MEDS: Omeprazole 20 MG CAPSULE.DR PO ×2 (07:03→16:26)
[2023-07-15 07:35] LABS: Carbon Dioxide 40 mmol/L (22-29)
[2023-07-15] MEDS: Fluticasone/Umeclidinium/Vilanterol 200/62.5/25 BLST.W.DEV 1 PUFF INHALE (07:59)
[2023-07-15] MEDS: 0.9 % Sodium Chloride Flush 3 ML SYRINGE IVFLUSH ×3 (08:08→20:08)
[2023-07-15] MEDS: Losartan Potassium 50 MG TABLET PO (08:13)
[2023-07-15] MEDS: Sertraline HCL 50 MG TABLET 150 MG PO (08:13)
[2023-07-15] MEDS: Calcium + Vitamin D 250 MG TABLET 500 MG PO ×2 (08:13→20:07)
[2023-07-15] MEDS: acetaZOLAMIDE 250 MG TABLET PO (08:13)
[2023-07-15] MEDS: Montelukast Sodium 10 MG TABLET PO (08:13)
[2023-07-15] MEDS: Loratadine 10 MG TABLET PO (08:13)
[2023-07-15] MEDS: Theophylline Anhydrous ER 400 MG TAB.ER.24H PO (08:13)
[2023-07-15] MEDS: guaiFENesin LA 600 MG TAB.ER.12H PO ×2 (08:13→20:07)
[2023-07-15] MEDS: cefuroxime axetiL 500 MG TABLET PO ×2 (08:13→20:07)
[2023-07-15] MEDS: methylPREDNISolone Sod Succ 40 MG/ML VIAL IVPUSH ×2 (08:13→20:07)
--- NOTE | 2023-07-15 09:26 | PM.CNPUL ---
History of Present Illness History of Present Illness Consult date: 07/15/23 Chief complaint: Acute om chronic hypoxemic respiratory failure Narrative: This is an in patient pulmonary consultation. The patient is a 63-year-old female with pertinent history of breast cancer, pulmonary hypertension, chronic hypoxemic respiratory failure due to COPD on baseline 2 L supplemental oxygen -came to the hospital because of shortness of breath on minimal exertion, also as per the ED physician patient was also desatting at the intermediate-patient was given nebs steroids in the ED patient still feels short of breath with a little exertion. Labs including CBC, BMP Bnp-seems fine except mild elevation LFT, has elevated bicarb. Chest x-ray fine. Patient was given nebs, steroids and requested admission for COPD exacerbation, patient recently discharged for acute on chronic hypercarbic respiratory failure secondary to COPD exacerbation/possible pneumonia/parainfluenza 3 URI-patient went to rehab with p.o. antibiotics and steroids. Getting admitted for further management of acute copd exaceberbation with acute on chronic hypercapnic hypoxemic respiratory failure. The patient had an ABG this morning and her PCO2 is 84mmHg. The patient does have increase work of breathing and will benefit from non invasive ventilation at night. Review of Systems Constitutional: Constitutional: Reports fatigue Eyes: Eyes: Reports no additional eye complaints ENT: Reports nasal congestion Cardiovascular: Cardiovascular: Denies chest pain, Reports dyspnea and Reports dyspnea on exertion Respiratory: Respiratory: Reports cough, Reports dyspnea, Reports dyspnea on exertion and Reports wheezing Gastrointestinal: Gastrointestinal: Reports no additional gastrointestinal complaints Musculoskeletal: Musculoskeletal: Reports no additional musculoskeletal complaints Neurologic: Reports system reviewed and no additional complaints, except as documented Endocrine: Endocrine: Reports fatigue Hematologic/Lymphatic: Hematologic/Lymphatic: Denies lymphadenopathy Allergic/Immunologic: Allergic/Immunologic: Reports wheezing [facility] Past Medical History Medical History MDD (major depressive disorder), recurrent episode, moderate PTSD (post-traumatic stress disorder) Respiratory failure Respiratory failure with hypoxia COPD (chronic obstructive pulmonary disease) Hypertension Breast CA Surgical History Surgical History H/O lumpectomy Social History Social History Household Members: Other Household Members Other:: SNF Housing: Skilled Nursing Do you presently have visiting nurse or other home services: Yes (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) Unable to assess alcohol history related to: Unable to respond Alcohol intake: former Patient Tobacco Use Status: Former Tobacco user Tobacco use type: Cigarette Second Hand Smoke Exposure: No Advance Directives Date on File: 04/05/22 service: No Current occupational status: disabled Meds Allergies Allergy/AdvReac Type Severity Reaction Status Date / Time Sulfa (Sulfonamide Allergy Mild RASH Verified 07/13/23 13:29 Antibiotics) codeine [Codeine] AdvReac Mild NEAR Verified 07/13/23 13:29 SYNCOPE epoprostenol [From Flolan] AdvReac Mild NAUSEA & Verified 07/13/23 13:29 VOMITING Active Medications: Current Medications Acetaminophen (Acetaminophen Supp 650 Mg Supp.Rect) 650 mg [place] Q4H PRN PRN Reason: pain or fever Azithromycin (Azithromycin 500 Mg Tablet) 500 mg PO Q24H [facility] Last Admin: 07/14/23 17:51 Dose: 500 mg Bisacodyl (Bisacodyl 10 Mg Supp.Rect) 10 mg [place] DAILY PRN PRN Reason: Constipation Calcium Carbonate/Cholecalciferol (Calcium + Vitamin D 250 Mg Tablet) 500 mg PO BID [facility] Last Admin: 07/15/23 08:13 Dose: 500 mg Cefuroxime Axetil (Cefuroxime Axetil 500 Mg Tablet) 500 mg PO Q12H [facility] Last Admin: 07/15/23 08:13 Dose: 500 mg Enoxaparin Sodium (Enoxaparin Sodium 40 Mg/0.4 Ml Syringe) 40 mg SUBCUT Q24H [facility] Last Admin: 07/14/23 17:51 Dose: 40 mg Fluticasone/Umeclidinium/Vilanterol (Fluticasone/Umeclidinium/Vilanterol 200/62.5/25 Blst.W.Dev) 1 puff INHALE RDAILY [facility] Last Admin: 07/15/23 07:59 Dose: 1 puff Guaifenesin (Guaifenesin La 600 Mg Tab.Er.12h) 600 mg PO BID [facility] Last Admin: 07/15/23 08:13 Dose: 600 mg Levalbuterol HCl (Levalbuterol Hcl 1.25 Mg/3 Ml Vial.Neb) 1.25 mg INHALE Q4H PRN PRN Reason: Shortness of Breath/Wheezing Loratadine (Loratadine 10 Mg Tablet) 10 mg PO DAILY [facility] Last Admin: 07/15/23 08:13 Dose: 10 mg Lorazepam (Lorazepam 0.5 Mg Tablet) 0.5 mg PO DAILY PRN PRN Reason: anxiety/restlessness Magnesium Hydroxide (Milk Of Magnesia 30 Ml Oral.Susp) 30 ml PO DAILY PRN PRN Reason: Constipation Methylprednisolone Sodium Succinate (Methylprednisolone Sod Succ 40 Mg/Ml Vial) 40 mg IVPUSH BID [facility] Last Admin: 07/15/23 08:13 Dose: 40 mg Montelukast Sodium (Montelukast Sodium 10 Mg Tablet) 10 mg PO DAILY [facility] Last Admin: 07/15/23 08:13 Dose: 10 mg Omeprazole (Omeprazole 20 Mg Capsule.Dr) 20 mg PO BID@0630,1630 [facility] Last Admin: 07/15/23 07:03 Dose: 20 mg Potassium Chloride (Potassium Chloride Er 20 Meq Tab.Er.Prt) 40 meq PO TUTH@0900 [facility] Prazosin HCl (Prazosin Hcl 1 Mg Capsule) 2 mg PO BEDTIME [facility]; Protocol Last Admin: 07/14/23 20:20 Dose: 2 mg Sertraline HCl (Sertraline Hcl 50 Mg Tablet) 150 mg PO DAILY [facility] Last Admin: 07/15/23 08:13 Dose: 150 mg Sodium Biphosphate/Sodium Phosphate (Sodium Phosphate,[place]-Dibasic 133 Ml Enema) 118 ml [place] DAILY PRN PRN Reason: Constipation Sodium Chloride (0.9 % Sodium Chloride Flush 3 Ml Syringe) 3 ml IVFLUSH QSHIFT [facility] Last Admin: 07/15/23 08:08 Dose: 3 ml Theophylline (Theophylline Anhydrous Er 400 Mg Tab.Er.24h) 400 mg PO DAILY [facility] Last Admin: 07/15/23 08:13 Dose: 400 mg Home Medications ?Medication ?Instructions ?Recorded ?Confirmed ?Last Taken ?Type albuterol sulfate 90 mcg/actuation 2 puff inhalation Q6H PRN wheezing 02/05/20 07/13/23 06/07/23 History aerosol inhaler montelukast 10 mg tablet 1 tab PO DAILY 02/05/20 07/13/23 06/07/23 History omeprazole 20 mg capsule,delayed 1 cap PO BID 02/05/20 07/13/23 06/07/23 History release sertraline 100 mg tablet 1.5 tab PO DAILY 02/05/20 07/13/23 06/07/23 History fluticasone fur. 200 mcg-umeclid 1 ea inhalation DAILY 06/11/23 07/13/23 06/07/23 History 62.5 mcg-vilant 25 mcg inhalat.powder (Trelegy Ellipta) losartan 50 mg tablet 50 mg PO DAILY 06/11/23 07/13/23 06/07/23 History acetaminophen 325 mg tablet 650 mg PO Q4H PRN pain or fever 07/07/23 07/13/23 Unknown History acetaminophen 650 mg rectal 650 mg [place] Q4H PRN pain or fever 07/07/23 07/13/23 Unknown History suppository albuterol sulfate 1.25 mg/3 mL 1.25 mg inhalation Q4H PRN Wheezing 07/07/23 07/13/23 Unknown History solution for nebulization bisacodyl 10 mg rectal suppository 10 mg [place] DAILY PRN Constipation 07/07/23 07/13/23 Unknown History calcium carbonate 600 mg-vitamin 1 tab PO BID 07/07/23 07/13/23 Unknown History D3 5 mcg (200 unit) tablet guaifenesin 600 mg tablet, 600 mg PO Q12H 07/07/23 07/13/23 Unknown History extended release 12 hr ipratropium 0.5 mg-albuterol 3 mg 3 ml inhalation Q4H 07/07/23 07/13/23 Unknown History (2.5 mg base)/3 mL nebulization soln magnesium hydroxide 400 mg/5 mL 30 ml PO DAILY PRN Constipation 07/07/23 07/13/23 Unknown History oral suspension (Milk of Magnesia) nystatin 100,000 unit/gram topical 1 appl topical BID 07/07/23 07/13/23 Unknown History powder potassium chloride 20 mEq 40 meq PO TUTH@0900 07/07/23 07/13/23 Unknown History tablet,extended release prazosin 2 mg capsule 2 mg PO BEDTIME 07/07/23 07/13/23 Unknown History prednisone 10 mg tablet See Taper PO DIRECTED 07/07/23 07/13/23 Unknown History sodium phosphates 19 gram-7 118 ml [place] DAILY PRN Constipation 07/07/23 07/13/23 Unknown History gram/118 mL enema (Fleet Enema) theophylline 400 mg 400 mg PO QAM 07/07/23 07/13/23 Unknown History tablet,extended release 24 hr Physical Exam Vital Signs: Vital Signs: Last Vital Signs Temp 98.7 F 07/15/23 07:09 Pulse 116 H 07/15/23 08:01 Resp 18 07/15/23 08:01 BP 149/82 H 07/15/23 07:09 Pulse Ox 95 07/15/23 07:09 O2 Del Method Nasal Cannula 07/15/23 07:09 O2 Flow Rate 4 07/15/23 07:09 Oxygen Flow Rate 4 07/13/23 13:27 BMI result Body Mass Index 36.1 Const: General: comfortable HEENT: Head: Yes normocephalic Neck: Neck: Yes supple Chest: Chest palpation & inspection: normal inspection of the chest Resp: Effort & Inspection: normal respiratory effort Auscultation: wheezes and diminished lung sounds Cardio: Heart sounds: S1 normal heart sound present and S2 normal heart sound present GI: Palpation (GI): Soft to palpation Skin: General skin exam: no rashes or lesions noted Extrem: General: No clubbing and No cyanosis Results Laboratory Findings 07/14/23 22:02 07/15/23 05:31 Abnormal lab findings: Abnormal Labs 07/13/23 07/13/23 07/13/23 13:43 16:10 23:57 Hct 49.2 H D Immature Gran % (Auto) Neut % (Auto) Lymph % (Auto) Lymph # (Auto) Abs Immat Gran (auto) Neutrophils % (Manual) 83 H Band Neutrophils % 6 H Lymphocytes % (Manual) 6 L Monocytes % (Manual) 1 L Lymphocytes # (Manual) 0.4 L Nucleated RBCs 3 H ABG pCO2 at Pt Temp ABG pO2 at Pt Temp ABG HCO3 VBG pH 7.45 H VBG HCO3 50 H 50 H Chloride 86 L Carbon Dioxide 43 H* D BUN 18 H Creatinine Random Glucose 197 H AST 34 H ALT 47 H Total Protein Urine Protein Ur Leukocyte Esterase 07/14/23 07/14/23 07/14/23 06:38 07:12 22:02 Hct Immature Gran % (Auto) 2.7 H Neut % (Auto) 85.0 H Lymph % (Auto) 6.2 L Lymph # (Auto) 0.5 L Abs Immat Gran (auto) 0.22 H Neutrophils % (Manual) Band Neutrophils % Lymphocytes % (Manual) Monocytes % (Manual) Lymphocytes # (Manual) Nucleated RBCs ABG pCO2 at Pt Temp ABG pO2 at Pt Temp ABG HCO3 VBG pH VBG HCO3 Chloride 86 L 84 L Carbon Dioxide 45 H* 40 H* BUN 27 H 39 H Creatinine 1.58 H Random Glucose 148 H 138 H AST ALT 52 H Total Protein 6.2 L Urine Protein 30 (1+) H Ur Leukocyte Esterase Trace H 07/15/23 07/15/23 01:29 05:31 Hct Immature Gran % (Auto) Neut % (Auto) Lymph % (Auto) Lymph # (Auto) Abs Immat Gran (auto) Neutrophils % (Manual) Band Neutrophils % Lymphocytes % (Manual) Monocytes % (Manual) Lymphocytes # (Manual) Nucleated RBCs ABG pCO2 at Pt Temp 84 H* ABG pO2 at Pt Temp 81 L ABG HCO3 46 H VBG pH VBG HCO3 Chloride 84 L Carbon Dioxide 40 H* BUN 42 H Creatinine Random Glucose AST ALT Total Protein Urine Protein Ur Leukocyte Esterase Microbiology: Microbiology 07/13/23 13:48 Blood - Venous Blood Culture - Preliminary No growth after 24 hours. 07/13/23 13:40 Blood - Venous Blood Culture - Preliminary No growth after 24 hours. Assessment and Plan (1) History of pulmonary hypertension: Status: Acute (2) COPD exacerbation: Status: Acute (3) Chronic obstructive pulmonary disease: Qualifiers: COPD type: chronic bronchitis Chronic bronchitis type: simple Qualified Code(s): J41.0 - Simple chronic bronchitis Status: Acute (4) Acute and chronic respiratory failure with hypoxia: Status: Acute Plan start BIPAP at night for chronic hypercarbic respiratory failure respiratory therapy oxygen supplementation to keep pox 89-95% solumedrol->transition to prednisone 40mg F/U with outpt pulmonary Procedures Date of Service Date of Service: 07/15/23
--- NOTE | 2023-07-15 11:00 | HO.PM.IMPN ---
Subjective Subjective Date of Service: 07/15/23 Interval History: She tells me she feels better than yesterday Physical Exam Vital Signs: Vital Signs: Last Vital Signs Temp 98.7 F 07/15/23 07:09 Pulse 116 H 07/15/23 08:01 Resp 18 07/15/23 08:01 BP 149/82 H 07/15/23 07:09 Pulse Ox 95 07/15/23 07:09 O2 Del Method Nasal Cannula 07/15/23 07:09 O2 Flow Rate 4 07/15/23 07:09 Oxygen Flow Rate 4 07/13/23 13:27 BMI result Body Mass Index 36.1 General: AO X 3, no acute distress Resp: diminished sounds, no distress, seems fairly comfort CVS: S1,S2,RRR GI: +BS, NT, no distention Skin: No rash Neuro: motor grossly intact Psych: appropriate affect Objective Data Active Medications Acetaminophen (Acetaminophen Supp 650 Mg Supp.Rect) 650 mg [place] Q4H PRN PRN Reason: pain or fever Azithromycin (Azithromycin 500 Mg Tablet) 500 mg PO Q24H [facility] Last Admin: 07/14/23 17:51 Dose: 500 mg Documented By: KRYSTLE Bisacodyl (Bisacodyl 10 Mg Supp.Rect) 10 mg [place] DAILY PRN PRN Reason: Constipation Calcium Carbonate/Cholecalciferol (Calcium + Vitamin D 250 Mg Tablet) 500 mg PO BID [facility] Last Admin: 07/15/23 08:13 Dose: 500 mg Documented By: CELESTINE Cefuroxime Axetil (Cefuroxime Axetil 500 Mg Tablet) 500 mg PO Q12H [facility] Last Admin: 07/15/23 08:13 Dose: 500 mg Documented By: CELESTINE Enoxaparin Sodium (Enoxaparin Sodium 40 Mg/0.4 Ml Syringe) 40 mg SUBCUT Q24H [facility] Last Admin: 07/14/23 17:51 Dose: 40 mg Documented By: KRYSTLE Fluticasone/Umeclidinium/Vilanterol (Fluticasone/Umeclidinium/Vilanterol 200/62.5/25 Blst.W.Dev) 1 puff INHALE RDAILY [facility] Last Admin: 07/15/23 07:59 Dose: 1 puff Documented By: AD Guaifenesin (Guaifenesin La 600 Mg Tab.Er.12h) 600 mg PO BID [facility] Last Admin: 07/15/23 08:13 Dose: 600 mg Documented By: CELESTINE Levalbuterol HCl (Levalbuterol Hcl 1.25 Mg/3 Ml Vial.Neb) 1.25 mg INHALE Q4H PRN PRN Reason: Shortness of Breath/Wheezing Loratadine (Loratadine 10 Mg Tablet) 10 mg PO DAILY [facility] Last Admin: 07/15/23 08:13 Dose: 10 mg Documented By: CELESTINE Lorazepam (Lorazepam 0.5 Mg Tablet) 0.5 mg PO DAILY PRN PRN Reason: anxiety/restlessness Magnesium Hydroxide (Milk Of Magnesia 30 Ml Oral.Susp) 30 ml PO DAILY PRN PRN Reason: Constipation Methylprednisolone Sodium Succinate (Methylprednisolone Sod Succ 40 Mg/Ml Vial) 40 mg IVPUSH BID [facility] Last Admin: 07/15/23 08:13 Dose: 40 mg Documented By: CELESTINE Montelukast Sodium (Montelukast Sodium 10 Mg Tablet) 10 mg PO DAILY [facility] Last Admin: 07/15/23 08:13 Dose: 10 mg Documented By: CELESTINE Omeprazole (Omeprazole 20 Mg Capsule.Dr) 20 mg PO BID@0630,1630 [facility] Last Admin: 07/15/23 07:03 Dose: 20 mg Documented By: PHILL Potassium Chloride (Potassium Chloride Er 20 Meq Tab.Er.Prt) 40 meq PO TUTH@0900 [facility] Prazosin HCl (Prazosin Hcl 1 Mg Capsule) 2 mg PO BEDTIME [facility]; Protocol Last Admin: 07/14/23 20:20 Dose: 2 mg Documented By: TRU Sertraline HCl (Sertraline Hcl 50 Mg Tablet) 150 mg PO DAILY [facility] Last Admin: 07/15/23 08:13 Dose: 150 mg Documented By: CELESTINE Sodium Biphosphate/Sodium Phosphate (Sodium Phosphate,Treasure-Dibasic 133 Ml Enema) 118 ml [place] DAILY PRN PRN Reason: Constipation Sodium Chloride (0.9 % Sodium Chloride Flush 3 Ml Syringe) 3 ml IVFLUSH QSHIFT [facility] Last Admin: 07/15/23 08:08 Dose: 3 ml Documented By: ECLESTINE Theophylline (Theophylline Anhydrous Er 400 Mg Tab.Er.24h) 400 mg PO DAILY [facility] Last Admin: 07/15/23 08:13 Dose: 400 mg Documented By: CELESTINE Labs 07/14/23 22:02 07/15/23 05:31 Labs: Laboratory Results - last 24 hr 07/13/23 07/14/23 07/14/23 13:43 22:01 22:02 MCV 94.7 MCH 29.7 MCHC 31.4 RDW 12.9 Plt Count 196 D MPV 10.1 Immature Gran % (Auto) 2.7 H Neut % (Auto) 85.0 H Lymph % (Auto) 6.2 L Treasure % (Auto) 5.7 Eos % (Auto) 0.2 Baso % (Auto) 0.2 Lymph # (Auto) 0.5 L Treasure # (Auto) 0.5 Eos # (Auto) 0.0 Baso # (Auto) 0.0 Abs Immat Gran (auto) 0.22 H Absolute Neuts (auto) 6.9 Absolute Nucleated RBC 0.000 Nucleated RBC % (auto) 0.0 Smear Path Review SEE NOTE Hold Purple Top D-Dimer High Sensitivty < 150 O2 Saturation ABG pH at Pt Temp ABG pCO2 at Pt Temp ABG pO2 at Pt Temp ABG HCO3 ABG Base Excess (Actual) Anion Gap 17 Estim Creat Clear Calc 37.8 Estimated GFR 33 Random Glucose 138 H Lactic Acid 0.9 Calcium 9.8 Magnesium 2.3 Total Bilirubin 0.4 AST 27 ALT 52 H Alkaline Phosphatase 61 Troponin I High Sens 14.0 D Total Protein 6.2 L Albumin 3.5 07/15/23 07/15/23 01:29 05:31 MCV MCH MCHC RDW Plt Count MPV Immature Gran % (Auto) Neut % (Auto) Lymph % (Auto) Treasure % (Auto) Eos % (Auto) Baso % (Auto) Lymph # (Auto) Treasure # (Auto) Eos # (Auto) Baso # (Auto) Abs Immat Gran (auto) Absolute Neuts (auto) Absolute Nucleated RBC Nucleated RBC % (auto) Smear Path Review Hold Purple Top SEE NOTE D-Dimer High Sensitivty O2 Saturation 97.0 ABG pH at Pt Temp 7.35 ABG pCO2 at Pt Temp 84 H* ABG pO2 at Pt Temp 81 L ABG HCO3 46 H ABG Base Excess (Actual) 16.1 Anion Gap 18 Estim Creat Clear Calc 47.1 Estimated GFR 42 Random Glucose 111 Lactic Acid Calcium 9.7 Magnesium Total Bilirubin AST ALT Alkaline Phosphatase Troponin I High Sens Total Protein Albumin Microbiology Microbiology Results: Microbiology 07/13/23 13:48 Blood Culture - Preliminary Blood - Venous No growth after 24 hours. 07/13/23 13:40 Blood Culture - Preliminary Blood - Venous No growth after 24 hours. Assessment and Plan (1) COPD exacerbation: Status: Acute (2) Acute hypoxic respiratory failure: Status: Acute (3) History of pulmonary hypertension: Status: Acute (4) Chronic hypoxic respiratory failure: Status: Acute (5) Hypoventilation associated with obesity: Status: Acute Plan 63-year-old female with pertinent history of breast cancer, essential hypertension, pulmonary hypertension, mood disorder, chronic hypoxemic respiratory failure due to COPD on baseline 2 L supplemental oxygen admitted for further management of acute copd exaceberbation with acute on chronic hypercapnic hypoxemic respiratory failure: Patient was sent from the rehab because sats dropped down as per ED, discussed with the ED and family. Acute exacerbation of End Stahe COPD with acute on chronic hypercapnic hypoxemic respiratory failure probably d/t recent underlying PNA, uri -parainfluenza virus. continue IV methylprednisolone and change to PO by tomorrow, ,DuoNebs q.4h while awake and p.r.n. ,oxygen to keep sat 88 to 92 only ,loratidine ,added dimox. will consider pulm eval if does not improve. Pulmonology consult hypertension:continue losartan mood disorder-continue home meds. history of breast cancer-continue anastrozole. Morbid obesity: encouraged to lose weight and cut down calories. DVT prophylaxis-Lovenox Full code ongoing need stay for management of acute on chronic hypoxemic hypercapnic respiratory failure with COPD exacerbation requiring IV steroids, nebulizers, and expert consultation given recurrent hospitalizations for COPD exacerbation. Pt to reasess at discharge to rehab Quality Stroke Does the patient have a stroke diagnosis?: No VTE Prior VTE?: No VTE Risk Level:: Medical - moderate - high VTE Device Contraindication: N/A - Device Ordered VTE Drug Contraindication: N/A - Med Ordered
--- NOTE | 2023-07-15 11:34 | MHC.CM.PN ---
EMR REVIEWED, PT W/COPD EXAC REMAINS ON IV SOLU-MEDROL BID, PER HOSPITALIST PT NOT MEDICALLY CLEARED FOR DC, [facility], CM WILL CONT TO FOLLOW DC NEEDS.
--- NOTE | 2023-07-15 11:58 | P.CDIM_ITS ---
PROVIDER RESPONSE TEXT: To clarify, the appropriate diagnosis supported by the clinical indicators: Other (explain): wrong provider QUERY TEXT: PHYSICIAN'S DOCUMENTATION REQUEST Date of Query: 07/15/2023 08:47 AM EDT Patient Name: Fernanda Peace Admit Date: 07/13/2023 Dear Greer Pierce, A review of the medical record indicates additional documentation may be needed. Please review below and update the documentation accordingly. Clinical Indicators: LABS: CR 0.86 1.58 1.27 GFR >60 33 42 BUN 27 39 49 Based on the above, is there a diagnosis that correlates with these labs: Acute kidney failure resolved, possible, suspected Acute renal insufficiency resolved, possible, suspected Other (explain) Clinically unable to determine (explain) Thank you, Dory Perez, CCS, CDIS Use of terms such as suspected, likely, concern for, or probable (associated with a specific diagnosi s that is being evaluated, monitored, or treated as if it exists) are acceptable and can be coded in the inpatient se tting, when documented at the time of discharge. Please use your independent medical judgment in providing your response. THIS QUERY IS PART OF THE PERMANENT MEDICAL RECORD
[2023-07-15] MEDS: Azithromycin 500 MG TABLET PO (17:01)
[2023-07-15] MEDS: Enoxaparin Sodium 40 MG/0.4 ML SYRINGE SUBCUT (17:01)
[2023-07-15] MEDS: Prazosin HCL 1 MG CAPSULE 2 MG PO (20:07)
[2023-07-15] MEDS: LORazepam 0.5 MG TABLET PO (21:44)
[2023-07-15] MEDS: Acetaminophen 325 MG TABLET 650 MG PO (21:44)
[2023-07-16] VITALS (7 sets, daily range): BP systolic 121–157; BP diastolic 63–93; PULSE 80–116; RESP 16–20; TEMP 36.1–36.5; O2SAT 92–100
[2023-07-16] MEDS: Omeprazole 20 MG CAPSULE.DR PO ×2 (05:47→16:57)
[2023-07-16] MEDS: Calcium + Vitamin D 250 MG TABLET 500 MG PO (08:08)
[2023-07-16] MEDS: methylPREDNISolone Sod Succ 40 MG/ML VIAL IVPUSH (08:08)
[2023-07-16] MEDS: Loratadine 10 MG TABLET PO (08:09)
[2023-07-16] MEDS: Theophylline Anhydrous ER 400 MG TAB.ER.24H PO (08:09)
[2023-07-16] MEDS: Montelukast Sodium 10 MG TABLET PO (08:09)
[2023-07-16] MEDS: guaiFENesin LA 600 MG TAB.ER.12H PO (08:09)
[2023-07-16] MEDS: 0.9 % Sodium Chloride Flush 3 ML SYRINGE IVFLUSH ×2 (08:10→15:33)
[2023-07-16] MEDS: cefuroxime axetiL 500 MG TABLET PO (08:10)
[2023-07-16] MEDS: Potassium Chloride ER 20 MEQ TAB.ER.PRT 40 MEQ PO (08:10)
[2023-07-16] MEDS: Sertraline HCL 50 MG TABLET 150 MG PO (08:10)
--- NOTE | 2023-07-16 08:53 | P.PNPL_ITS ---
Subjective Subjective Date of Service: 07/16/23 Interval history: The patient was seen on exam. She did do well on the BiPAP overnight. She does have hypercarbic respiratory failure hypoxic respiratory failure due to her COPD. The patient needs to continue BiPAP. Objective Data Labs 07/14/23 22:02 07/15/23 05:31 Labs: Laboratory Results - last 24 hr 07/13/23 13:43 Smear Path Review SEE NOTE Microbiology Microbiology Results: Microbiology 07/13/23 13:48 Blood - Venous Blood Culture - Preliminary No growth after 48 hours. 07/13/23 13:40 Blood - Venous Blood Culture - Preliminary No growth after 48 hours. Review of Systems Constitutional: Reports fatigue Eyes: Reports no additional eye complaints Reports nasal congestion Cardiovascular: Denies chest pain, Reports dyspnea and Reports dyspnea on exertion Respiratory: Reports cough, Reports dyspnea, Reports dyspnea on exertion and Reports wheezing Gastrointestinal: Reports no additional gastrointestinal complaints Musculoskeletal: Reports no additional musculoskeletal complaints Reports system reviewed and no additional complaints, except as documented Endocrine: Reports fatigue Hematologic/Lymphatic: Denies lymphadenopathy Allergic/Immunologic: Reports wheezing Physical Exam 2 Vital Signs: Vital Signs: Last Vital Signs Temp 97.7 F 07/16/23 07:52 Pulse 80 07/16/23 07:52 Resp 20 07/16/23 07:52 BP 139/73 07/16/23 07:52 Pulse Ox 100 07/16/23 07:52 O2 Del Method Nasal Cannula 07/16/23 07:52 O2 Flow Rate 4 07/16/23 07:52 Oxygen Flow Rate 4 07/15/23 22:20 BMI result Body Mass Index 36.1 Const: General: comfortable HEENT: Head: Yes normocephalic Neck: Neck: Yes supple Chest: Chest palpation & inspection: normal inspection of the chest Resp: Effort & Inspection: normal respiratory effort Auscultation: no wheezes and diminished lung sounds Cardio: Heart sounds: S1 normal heart sound present and S2 normal heart sound present GI: Palpation (GI): Soft to palpation Skin: General skin exam: no rashes or lesions noted Extrem: General: No clubbing and No cyanosis Procedures Date of Service Date of Service: 07/16/23 Assessment and Plan Assessment and plan (1) COPD exacerbation: Status: Acute (2) Chronic respiratory failure with hypoxia and hypercapnia: Status: Acute (3) History of pulmonary hypertension: Status: Acute Plan Continue BIPAP 12/6 while sleeping. Should continue at rehab and once she is home repeat venous gas titrate oxygen to keep pox 89-95% prednisone taper respiratory therapy complete 8 days total of Abx Time Spent With Patient Time: Total time managing care of this patient today ____ minutes. Progress Note: Quality Stroke Does the patient have a stroke diagnosis?: No
--- NOTE | 2023-07-16 09:19 | P.PNIM_ITS ---
Subjective Subjective Date of Service: 07/16/23 Interval History: f/u acute on chronic respiratory failure d/t end stage copd with co2 retention, she slept well last night using bipap Physical Exam 2 Vital Signs: Vital Signs: Last Vital Signs Temp 97.7 F 07/16/23 07:52 Pulse 80 07/16/23 07:52 Resp 20 07/16/23 07:52 BP 139/73 07/16/23 07:52 Pulse Ox 97 07/16/23 08:48 O2 Del Method Nasal Cannula 07/16/23 07:52 O2 Flow Rate 4 07/16/23 07:52 Oxygen Flow Rate 4 07/15/23 22:20 BMI result Body Mass Index 36.1 General: AO X 3, no acute distress Resp: CTA bilateral, no accessory muslce use CVS: S1,S2,RRR GI: +BS, NT, no distention Skin: No rash Neuro: motor grossly intact Psych: appropriate affect Objective Data Active Medications Acetaminophen (Acetaminophen Supp 650 Mg Supp.Rect) 650 mg [place] Q4H PRN PRN Reason: pain or fever Acetaminophen (Acetaminophen 325 Mg Tablet) 650 mg PO Q6H PRN PRN Reason: Pain, Mild (Pain Scale 1-3) Last Admin: 07/15/23 21:44 Dose: 650 mg Documented By: TRU Azithromycin (Azithromycin 500 Mg Tablet) 500 mg PO Q24H [facility] Last Admin: 07/15/23 17:01 Dose: 500 mg Documented By: KWABENA Bisacodyl (Bisacodyl 10 Mg Supp.Rect) 10 mg [place] DAILY PRN PRN Reason: Constipation Calcium Carbonate/Cholecalciferol (Calcium + Vitamin D 250 Mg Tablet) 500 mg PO BID [facility] Last Admin: 07/16/23 08:08 Dose: 500 mg Documented By: GAIL Cefuroxime Axetil (Cefuroxime Axetil 500 Mg Tablet) 500 mg PO Q12H [facility] Last Admin: 07/16/23 08:10 Dose: 500 mg Documented By: GAIL Enoxaparin Sodium (Enoxaparin Sodium 40 Mg/0.4 Ml Syringe) 40 mg SUBCUT Q24H [facility] Last Admin: 07/15/23 17:01 Dose: 40 mg Documented By: KWABENA Fluticasone/Umeclidinium/Vilanterol (Fluticasone/Umeclidinium/Vilanterol 200/62.5/25 Blst.W.Dev) 1 puff INHALE RDAILY [facility] Last Admin: 07/16/23 07:42 Dose: Not Given Documented By: KEISHA Non-Admin Reason: Patient Refused Guaifenesin (Guaifenesin La 600 Mg Tab.Er.12h) 600 mg PO BID [facility] Last Admin: 07/16/23 08:09 Dose: 600 mg Documented By: GAIL Levalbuterol HCl (Levalbuterol Hcl 1.25 Mg/3 Ml Vial.Neb) 1.25 mg INHALE Q4H PRN PRN Reason: Shortness of Breath/Wheezing Loratadine (Loratadine 10 Mg Tablet) 10 mg PO DAILY [facility] Last Admin: 07/16/23 08:09 Dose: 10 mg Documented By: GAIL Lorazepam (Lorazepam 0.5 Mg Tablet) 0.5 mg PO DAILY PRN PRN Reason: anxiety/restlessness Last Admin: 07/15/23 21:44 Dose: 0.5 mg Documented By: TRU Magnesium Hydroxide (Milk Of Magnesia 30 Ml Oral.Susp) 30 ml PO DAILY PRN PRN Reason: Constipation Methylprednisolone Sodium Succinate (Methylprednisolone Sod Succ 40 Mg/Ml Vial) 40 mg IVPUSH BID [facility] Last Admin: 07/16/23 08:08 Dose: 40 mg Documented By: GAIL Montelukast Sodium (Montelukast Sodium 10 Mg Tablet) 10 mg PO DAILY [facility] Last Admin: 07/16/23 08:09 Dose: 10 mg Documented By: GAIL Omeprazole (Omeprazole 20 Mg Capsule.Dr) 20 mg PO BID@0630,1630 [facility] Last Admin: 07/16/23 05:47 Dose: 20 mg Documented By: TRU Potassium Chloride (Potassium Chloride Er 20 Meq Tab.Er.Prt) 40 meq PO TUTH@0900 [facility] Last Admin: 07/16/23 08:10 Dose: 40 meq Documented By: GAIL Prazosin HCl (Prazosin Hcl 1 Mg Capsule) 2 mg PO BEDTIME [facility]; Protocol Last Admin: 07/15/23 20:07 Dose: 2 mg Documented By: TRU Sertraline HCl (Sertraline Hcl 50 Mg Tablet) 150 mg PO DAILY [facility] Last Admin: 07/16/23 08:10 Dose: 150 mg Documented By: GAIL Sodium Biphosphate/Sodium Phosphate (Sodium Phosphate,Sharkey-Dibasic 133 Ml Enema) 118 ml [place] DAILY PRN PRN Reason: Constipation Sodium Chloride (0.9 % Sodium Chloride Flush 3 Ml Syringe) 3 ml IVFLUSH QSHIFT [facility] Last Admin: 07/16/23 08:10 Dose: 3 ml Documented By: GAIL Theophylline (Theophylline Anhydrous Er 400 Mg Tab.Er.24h) 400 mg PO DAILY [facility] Last Admin: 07/16/23 08:09 Dose: 400 mg Documented By: GAIL Labs 07/14/23 22:02 07/15/23 05:31 Microbiology Microbiology Results: Microbiology 07/13/23 13:48 Blood Culture - Preliminary Blood - Venous No growth after 48 hours. 07/13/23 13:40 Blood Culture - Preliminary Blood - Venous No growth after 48 hours. Assessment and Plan (1) COPD exacerbation: Status: Acute (2) Acute hypoxic respiratory failure: Status: Acute (3) History of pulmonary hypertension: Status: Acute (4) Chronic hypoxic respiratory failure: Status: Acute (5) Hypoventilation associated with obesity: Status: Acute Plan 63-year-old female with pertinent history of breast cancer, essential hypertension, pulmonary hypertension, mood disorder, chronic hypoxemic respiratory failure due to COPD on baseline 2 L supplemental oxygen admitted for further management of acute copd exaceberbation with acute on chronic hypercapnic hypoxemic respiratory failure: Patient was sent from the rehab because sats dropped down as per ED, discussed with the ED and family. Acute exacerbation of End Stage COPD with acute on chronic hypercapnic hypoxemic respiratory failure probably d/t recent underlying PNA, uri -parainfluenza virus. change to PO steroid. DuoNebs q.4h while awake and p.r.n. ,oxygen to keep sat 88 to 92 only pulmonology to advise on NIV at home hypertension:continue losartan mood disorder-continue home meds. history of breast cancer-continue anastrozole. Morbid obesity: encouraged to lose weight and cut down calories. DVT prophylaxis-Lovenox Full code ongoing need stay for management of acute on chronic hypoxemic hypercapnic respiratory failure with COPD exacerbation requiring IV steroids, nebulizers, and expert consultation given recurrent hospitalizations for COPD exacerbation. Pt to reasess at discharge to rehab Quality Stroke Does the patient have a stroke diagnosis?: No VTE Prior VTE?: No VTE Risk Level:: Medical - moderate - high VTE Device Contraindication: N/A - Device Ordered VTE Drug Contraindication: N/A - Med Ordered
--- NOTE | 2023-07-16 11:42 | MHC.CM.PN ---
PULMONOLOGY RECOMMENDING BIPAP FOR PT, [facility] NOTIFIED AND WILL ORDER BIPAP, BIPAP SETTINGS PREVIOUSLY SENT TO FACILITY.
--- NOTE | 2023-07-16 12:52 | MHC.CM.PN ---
IMM 07/16/23 DELIVERED TO [facility]TR/HCP STACIE AT 12:20PM [phone] AT PT'S REQUEST, STACIE REPORTS SHE SPOKE W/HOSPITALIST AND IS AGREEABLE TO DC PLAN, COPY OF IMM LEFT AT BEDSIDE AND AFTER DISCUSSING W/STACIE PT IS NOW READY FOR AGREEABLE TO DC TO [facility] FOR STR PENDING BIPAP WILL BE DELIVERED IN TIME, YASMINE BOOKED FOR 5:30PM.
--- NOTE | 2023-07-16 13:01 | P.DS_ITS ---
DS: Providers Provider Date of Service: 07/16/23 Date of admission: 07/13/23 16:22 Primary care physician: Michael Vargas MD Consults: 07/14/23 15:40 Consult to Pulmonology Routine Consulting Provider: [facility] Reason for consultation: copd excerebation Has provider been notified: No DS: Diagnosis Discharge Diagnosis (1) COPD exacerbation: Status: Acute (2) Acute hypoxic respiratory failure: Status: Acute (3) History of pulmonary hypertension: Status: Acute (4) Chronic hypoxic respiratory failure: Status: Acute (5) Hypoventilation associated with obesity: Status: Acute DS: Summary Hospital Course Hospital Course: admision [facility] Chief Complaint: sob 63-year-old female with pertinent history of breast cancer, essential hypertension, pulmonary hypertension, mood disorder, chronic hypoxemic respiratory failure due to COPD on baseline 2 L supplemental oxygen -came to the hospital because of shortness of breath on minimal exertion, also as per the ED physician patient was also desatting at the [facility]-patient was given nebs steroids in the ED patient still feels short of breath with a little exertion. Labs including CBC, BMP Bnp-seems fine except mild elevation LFT, has elevated bicarb. Chest x-ray fine. Patient was given nebs, steroids and requested admission for COPD exacerbation, patient recently discharged for acute on chronic hypercarbic respiratory failure secondary to COPD exacerbation/possible pneumonia/parainfluenza 3 URI-patient went to rehab with p.o. antibiotics and steroids. Getting admitted for further management of acute copd exaceberbation with acute on chronic hypercapnic hypoxemic respiratory failure hospital course: The patient was unfortunately readmitted just two days after discharge due to recurring shortness of breath. This episode involved [id number] hypoxic respiratory failure, caused by a COPD exacerbation with CO2 retention (hypercarbia). She responded well to treatment with nebulized bronchodilators, intravenous steroids and antibiotics, and BiPAP (bilevel positive airway pressure) therapy. Given her successful treatment with BiPAP, the asp net c developer recommended its nightly use at a setting of 12/6. The patient's daughter requested a cardiology evaluation. While a prior echocardiogram was normal, BNP levels were also normal, and there were no other signs of heart failure, an appointment with [facility] cardiology will be arranged to address the daughter's concerns. Time Attestation Discharge Coordination Time (in mins): 45 Quality: Safe Use of Opioids Does Pt have an Active Cancer Diagnosis on the Problem List?: No Quality: Stroke Does the patient have a stroke diagnosis?: No Physical Exam Vital Signs: Vital Signs: Last Vital Signs Temp 97.0 F 07/16/23 11:22 Pulse 107 H 07/16/23 11:22 Resp 18 07/16/23 11:22 BP 157/93 H 07/16/23 11:22 Pulse Ox 99 07/16/23 11:22 O2 Del Method Nasal Cannula 07/16/23 11:22 O2 Flow Rate 3 07/16/23 11:22 Oxygen Flow Rate 4 07/15/23 22:20 BMI result Body Mass Index 36.1 DS: Data Data Completed and Pending Labs on day of discharge: Preliminary micro results at discharge 07/13/23 13:48 Blood Culture - Preliminary Blood - Venous No growth after 48 hours. 07/13/23 13:40 Blood Culture - Preliminary Blood - Venous No growth after 48 hours. Discharge Plan Discharge Anticipated Discharge Date/Time: 07/16/23 13:02 Patient Disposition: Xfer SNF Discharge Diagnosis: Acute on chronic Hypoxic respiratory failure due to copd Referrals: [facility] [Outside] - 1 Day (SHORT TERM REHAB) Michael Vargas MD [Primary Care Provider] - 1 Week Discharge Medications: New prednisone 10 mg tablet See Taper PO DAILY Qty: 20 0RF Taper: Prednisone 20 mg daily for 2 Days and 0 Hour 10 mg daily for 3 Days and 0 Hour Rx Instructions: 20 mg daily x2 days, 10 mg daily x3 days Continued sertraline 100 mg tablet 1.5 tab PO DAILY omeprazole 20 mg capsule,delayed release(DR/EC) 1 cap PO BID montelukast 10 mg tablet 1 tab PO DAILY albuterol sulfate 90 mcg/actuation HFA aerosol inhaler 2 puff inhalation Q6H PRN (Reason: wheezing) losartan 50 mg tablet 50 mg PO DAILY Trelegy Ellipta 200-62.5-25 mcg blister with device 1 ea inhalation DAILY acetaminophen 325 mg Tablet 650 mg PO Q4H MDD 3g PRN (Reason: pain or fever) acetaminophen 650 mg Suppository 650 mg SD Q4H MDD 3g PRN (Reason: pain or fever) magnesium hydroxide [Milk of Magnesia] 400 mg/5 mL Suspension 30 ml PO DAILY PRN (Reason: Constipation) Rx Instructions: if no bowel movement in 3 days Fleet Enema 19-7 gram/118 mL Enema 118 ml SD DAILY PRN (Reason: Constipation) Rx Instructions: if bisacodyl is ineffective nystatin 100,000 unit/gram Powder 1 appl TOPICAL BID Rx Instructions: apply to bilateral breasts guaifenesin 600 mg Tablet Extended Release 12hr 600 mg PO Q12H Rx Instructions: for 14 days, start date 07/03/23 calcium carbonate-vitamin D3 600 mg-5 mcg (200 unit) Tablet 1 tab PO BID bisacodyl 10 mg Suppository 10 mg SD DAILY PRN (Reason: Constipation) Rx Instructions: if milk of magnesia not effective prazosin 2 mg Capsule 2 mg PO BEDTIME ipratropium-albuterol 0.5 mg-3 mg(2.5 mg base)/3 mL solution for nebulization 3 ml inhalation Q4H Rx Instructions: q4h while awake theophylline 400 mg tablet extended release 24 hr 400 mg PO QAM albuterol sulfate 1.25 mg/3 mL solution for nebulization 1.25 mg inhalation Q4H PRN (Reason: Wheezing) potassium chloride 20 mEq Tablet Extended Release 40 meq PO TUTH@0900 Rx Instructions: TO BEGIN 07/09/23, AFTER THE POTASSIUM QID ORDER IS COMPLETE furosemide [Lasix] 20 mg tablet 20 mg PO DAILY Qty: 30 0RF cefuroxime axetil 500 mg Tablet 500 mg PO Q12H Qty: 8 0RF Rx Instructions: TO BE TAKEN UNTIL 07/20/23 FOR PNEUMONIA azithromycin 500 mg Tablet 500 mg PO Q24H Qty: 4 0RF Rx Instructions: TO BE TAKEN UNTIL 07/15/23 FOR PNEUMONIA Discontinued prednisone 10 mg tablet See Taper PO DIRECTED Taper: Prednisone 40 mg daily for 5 Days and 0 Hour 30 mg daily for 5 Days and 0 Hour 20 mg daily for 5 Days and 0 Hour 10 mg daily for 5 Days and 0 Hour Patient Comments: 40mg once daily start date: 07/04/23, end date: 07/09/23 30 MG ONCE DAILY 07/09/23 - 07/14/23 20 MG ONCE DAILY 07/14/23 - 07/19/23 10 MG ONCE DAILY 07/19/23 - 07/24/23 Rx Instructions: see taper instructions Discharge Orders: Discharge Order (Routine); Ordered 07/16/23 Ordered By: Hi Blanchard Diet: Advance to usual diet Activity on Discharge: As tolerated Stand Alone Forms: Patient Portal Discharge page Print Language: Vietnamese Care Plan Goals: breathing easier, lessening shortness of breath, and prevent rehospitalization Health Concerns: acute on chronic respiratory failure due to copd exacerbation Plan of Treatment: take Prednisone as directed with 20 mg daily for 2 days, follow by 20 mg daily for 3 days continue inhalers as before take Cefuroxime and Azithro for 4 more days continue oxygen with goal of oxygen saturation level of 88 to 95 % use BiPAP at night and as needed during the day with the settin/6 Assessment: see above Discharge Date/Time: 07/16/23 19:51
--- NOTE | 2023-07-16 14:03 | MHC.CM.PN ---
[facility] BOOKING ID#[id number]
[2023-07-16] MEDS: Azithromycin 500 MG TABLET PO (16:57)
--- NOTE | 2023-07-16 19:50 | PC.NURSE ---
Seen pt on a recliner alert and oriented with O2 at 2L/min via [place], 3 oracle specialist arrived at 1944, report given pt to maintain O2 sat at 88-90% , pt left at 1949 via ambulance stretcher.
== END 2023-07-16 19:51 | disposition skilled nursing facility (03) | DRG 193 ==
LOC: HO.ED 15:05 → HO.EDOVER 16:24 → HO.S3 16:52
PROVIDERS: Internal Medicine; Student in an Organized Health Care Education/Training Program; Admitting Provider Internal Medicine; Emergency Provider Emergency Medicine; PCP Family Medicine; Visit Provider Internal Medicine
DX: J18.9 Pneumonia, unspecified organism (principal); J96.21 Acute and chronic respiratory failure with hypoxia; J96.22 Acute and chronic respiratory failure with hypercapnia; J44.0 Chronic obstructive pulmonary disease with (acute) lower respiratory infection; J44.1 Chronic obstructive pulmonary disease with (acute) exacerbation; E66.2 Morbid (severe) obesity with alveolar hypoventilation; F39 Unspecified mood [affective] disorder; I27.20 Pulmonary hypertension, unspecified; Z68.36 Body mass index [BMI] 36.0-36.9, adult; C50.919 Malignant neoplasm of unspecified site of unspecified female breast; I10 Essential (primary) hypertension; Z20.822 Contact with and (suspected) exposure to COVID-19; Z99.81 Dependence on supplemental oxygen; Z79.811 Long term (current) use of aromatase inhibitors; Z79.899 Other long term (current) drug therapy
CPT/HCPCS: 0241U; 36415; 36600; 71045; 80048; 80053; 80076; 81001; 82803; 83605; 83690; 83735; 83880; 84484; 85007; 85025; 85027; 85379; 87040; 93005; 94640; 94660; 97162; 97166; 99285; J1650; J2919; J3475

== ENCOUNTER → 2023-07-13 13:28 | Outpatient (BNV) | payer OTHER, SELFPAY | PROVIDERS: Admitting Provider Internal Medicine; Emergency Provider Emergency Medicine; PCP Family Medicine; Visit Provider Internal Medicine | DX: R00.0 Tachycardia, unspecified (principal); I49.1 Atrial premature depolarization | CPT/HCPCS: 93010 ==

== ENCOUNTER 2023-07-13 16:22 | Outpatient (BNV) | payer OTHER, SELFPAY | END 2023-07-14 21:41 | PROVIDERS: Admitting Provider Internal Medicine; Emergency Provider Emergency Medicine; PCP Family Medicine; Visit Provider Internal Medicine Cardiovascular Disease | DX: R00.0 Tachycardia, unspecified (principal); I51.7 Cardiomegaly; I49.1 Atrial premature depolarization | CPT/HCPCS: 93010 ==

== ENCOUNTER → 2023-07-13 16:22 | Outpatient (BNV) | payer OTHER, SELFPAY | PROVIDERS: Admitting Provider Internal Medicine; Emergency Provider Emergency Medicine; PCP Family Medicine; Visit Provider Hospitalist | DX: Z86.79 Personal history of other diseases of the circulatory system (principal); J44.1 Chronic obstructive pulmonary disease with (acute) exacerbation; J96.21 Acute and chronic respiratory failure with hypoxia | CPT/HCPCS: 99223; 99233 ==

== ENCOUNTER → 2023-07-13 16:22 | Outpatient (BNV) | payer OTHER, SELFPAY | PROVIDERS: Admitting Provider Internal Medicine; Emergency Provider Emergency Medicine; PCP Family Medicine; Visit Provider Internal Medicine | DX: J44.1 Chronic obstructive pulmonary disease with (acute) exacerbation (principal); J96.21 Acute and chronic respiratory failure with hypoxia; Z86.79 Personal history of other diseases of the circulatory system; E66.2 Morbid (severe) obesity with alveolar hypoventilation | CPT/HCPCS: 99223; 99232; 99239; 99499 ==